=== PATIENT | female | born 1950 | race Caucasian/White ===

== ENCOUNTER 2016-07-10 19:34 | Emergency (ER) | payer MEDICARE ==
[~2016-07-10] VITALS: Ht 162.6 cm; Wt 122.5 kg
[~2016-07-10 19:34] MED LIST: ACHD5005 PO; ALBU17AE23 INH; ALLO300T2 PO; ALLP300T PO; ASP325T; ASP325T PO; ASP81CT PO; ATEN50TA PO; CEPH500C PO; CHOL100084 PO; CIPR-17 PO; DCS100C PO; FELO5TAB2; FISH OIL; FLT05NA16; FLUT16SP22 NS; FLUT1DIS26 IH; FRSM20T PO; FURO20TA4 PO; FURO40TA4 PO; GABA-486 PO; GARL10002 PO; GARLIC; GBPN100C; GLUC500C2 PO; HYDR-3714 PO; HYDR1CAP2; IBUP200T48 PO; LEVO200T6 PO; LVT.1T PO; MONT10TA21 PO; MONT10TA24 PO; MULT-974 PO; MULT1CAP PO; OMEG1CAP51 PO; ONDA-42 SL; ONDA8TAB9 PO; POTA10CA43 PO; PRD20T PO; SIMV10TA3 PO; TRAM50TA2; TRIA1CAP4 PO; VITAMIN D3; [UNRECOGNIZED DRUG - CODE] PO; [UNRECOGNIZED DRUG - CODE] PO
--- OUTSIDE RECORDS SUMMARY | 2016-07-10 19:39 | XMS REPORT | Continuity of Care Document ---
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 If you do not see the information that you expected, contact Release of Information in the Health Information Management department at [phone] for further assistance in locating additional records.[facility] Active Allergies and Adverse Reactions Allergen Noted Date Severity Reactions Comments Simvastatin 11/05/2014 Low UNKNOWN Current Medications Prescription Sig. Disp. Refills Start End Date Status Date levothyroxine (SYNTHROID) Take 200 mcg by mouth Active 200 mcg tablet daily. fluticasone-salmeterol Inhale 1 Puff by mouth Active (ADVAIR DISKUS) 250-50 every 12 hours. mcg inhalation disk docusate (COLACE) 100 mg Take 100 mg by mouth Active capsule twice daily. fluticasone (FLONASE) 50 Apply 1 [place] to each Active mcg/actuation nasal spray nostril as directed twice daily. cholecalciferol (VITAMIN Take 1,000 Units by mouth Active D-3) 1,000 units tablet twice daily. albuterol 0.5% 0.5 mL every 4 hours as 30 Vial 3 11/20/19 Active (PROVENTIL; VENTOLIN) 2.5 needed. 15 mg/0.5 mL nebu nebulizer solution ipratropium (ATROVENT) Inhale 2.5 mL by mouth 1 Bottle 0 11/20/19 Active 0.02 % nebulizer solution every 4 hours as needed. 15 Active Problems Problem Noted Date Gout 11/05/2014 HTN (hypertension) 11/05/2014 Morbid obesity (HCC) 11/05/2014 COPD (chronic obstructive pulmonary disease) ([facility]) 11/05/2014 Hypothyroidism 11/05/2014 Chronic back pain 11/05/2014 Abdominal hernia 11/05/2014 Peripheral neuropathy ([facility]) 11/05/2014 Resolved Problems Problem Noted Date Resolved Date Hypernatremia 11/10/2014 11/19/2014 Encephalopathy acute 11/09/2014 11/19/2014 Pulmonary edema 11/06/2014 11/19/2014 Volume overload 11/06/2014 11/19/2014 Acute respiratory failure with hypercapnia ([facility]) 11/05/2014 11/19/2014 Diastolic CHF ([facility]) 11/05/2014 11/19/2014 Diffuse pulmonary alveolar hemorrhage 11/05/2014 11/19/2014 KAIN (acute kidney injury) ([facility]) 11/05/2014 11/19/2014 Thrombocytopenia ([facility]) 11/05/2014 11/19/2014 Acute urinary tract infection 11/05/2014 11/19/2014 Bilateral pneumonia 11/05/2014 11/19/2014 Social History Tobacco Use Types Packs/Day Years Used Date Never Assessed Last Filed Vital Signs Vital Sign Reading Time Taken Blood Pressure 149/69 11/19/2014 1:00 PM CDT Pulse 114 11/19/2014 1:20 PM CDT Temperature 36.6 C (97.9 F) 11/19/2014 12:00 PM CDT Respiratory Rate - - Height 1.575 m (5' 2.01") 11/15/2014 10:00 AM CDT Weight 139.799 kg (308 lb 3.2 11/18/2014 4:10 AM CDT oz) Body Mass Index 56.36 11/18/2014 4:10 AM CDT Oxygen Saturation 93% 11/19/2014 1:20 PM CDT Plan of Care Health Maintenance Due Date Last Done Comments Physical (Comprehensive) 11/12/1957 Exam Pertussis Vaccine 11/12/1959 Tetanus Vaccine 1965 Breast Cancer Screening 1988 Colorectal Cancer 1998 Screening Shingles Vaccine 2008 Osteoporosis Screening 2013 Prevnar/Pneumovax (#1) 2013 Influenza Vaccine 02/24/2016 Hepatitis C Screening Completed 11/05/2014 Results from Last 3 Months Not on file
[2016-07-10] MEDS ORDERED: FAMO20TA5 PO (19:41)
[2016-07-10] MEDS ORDERED: BUDE10.2 INH (19:41)
[2016-07-10] MEDS ORDERED: HYDR-3812 PO (19:41)
[2016-07-10] MEDS ORDERED: TR1C15 TD (19:41)
[2016-07-10] MEDS ORDERED: METO-333 PO (19:41)
[2016-07-10] MEDS ORDERED: ONDA4TAB11 PO (19:41)
[2016-07-10] MEDS ORDERED: NS IV 1000 ML 1,000 ML IV ONE (19:49)
[2016-07-10 19:56] LABS: BASOPHILS % (AUTO) 0 % (0-10); EOSINOPHILS # (AUTO) 0.1 10^3/uL (0.0-0.3); EOSINOPHILS % (AUTO) 1 % (0-10); LYMPHOCYTES # (AUTO) 0.1 X 10^3 (1.0-4.0); LYMPHOCYTES % (AUTO) 2 % (12-44); MEAN CORPUSCULAR HEMOGLOBIN 31 PG (25-34); MEAN CORPUSCULAR HGB CONC 31 G/DL (32-36); MEAN CORPUSCULAR VOLUME 101 FL (80-99); MEAN PLATELET VOLUME 10.3 FL (7.4-10.4); MONOCYTES # (AUTO) 0.2 X 10^3 (0.0-1.0); MONOCYTES % (AUTO) 3 % (0-12); NEUTROPHILS # (AUTO) 7.4 X 10^3 (1.8-7.8); NEUTROPHILS % (AUTO) 95 % (42-75); PLATELET COUNT 96 10^3/uL (130-400); RED BLOOD COUNT 4.09 10^6/uL (4.35-5.85); RED CELL DISTRIBUTION WIDTH 14.5 % (10.0-14.5); WHITE BLOOD COUNT 7.8 10^3/uL (4.3-11.0)
--- NOTE | 2016-07-10 19:57 | ED GI ---
General Chief Complaint: Abdominal/GI Problems Stated Complaint: N,V,D Nursing Triage Note: NVD TODAY RUQ ABDOMINAL/RIGHT FLANK PAIN Sepsis Screen: No Definite Risk Source of Information: Patient (VERY DIFFICULT AND LIMITED HISTORIAN), [facility] Records, Old Records History of Present Illness Time Seen By Provider: 19:35 Initial Comments PT ARRIVES VIA EMS FROM [facility] PT STATES SHE HAS BEEN SICK SINCE EARLY THIS AM, AND BEGAN VOMITING AROUND NOON TODAY HAS HAD NAUSEA/VOMITING AND DIARRHEA VOMITED X 3 AND DIARRHEA X 3-4 PER PT ( DETENTION REPORT IS VOMITING X 2 AND DIARRHEA X 1 NO KNOWN FEVER PT C/O RIGHT FLANK/BACK PAIN AND RUQ TENDERNESS TO PALPATION PER DETENTION REPORT NO URINARY SYMPTOMS AND VOIDING A NORMAL AMOUNT, PER PT PT HAS ORDERS FOR ZOFRAN, BUT AL STAFF DID NOT GIVE HER ANY--EMS 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 STACK Allergies and Home Medications Allergies Coded Allergies: simvastatin (Unverified Adverse Reaction, Unknown, 04/20/14) Home Medications Allopurinol 300 Mg Tablet 300 MG PO DAILY (Reported) Budesonide/Formoterol Fumarate 10.2 Gm Hfa.aer.ad #102 1 INHALER INH UD ( Reported) Cholecalciferol 1,000 Unit Tab 1,000 UNIT PO BID (Reported) Docosahexanoic Acid/Epa 1 Cap Capsule 1,000 MG PO DAILY (Reported) Docusate Sodium 100 Mg Cap 100 MG PO BID (Reported) Famotidine 20 Mg Tablet #30 1 TAB PO UD (Reported) Fluticasone Propionate 16 Gm Naspr 1 SPRAY NS BID (Reported) Fluticasone/Salmeterol 1 Disk Inhp 1 PUFF IH BID (Reported) Furosemide 20 Mg Tablet 20-40 MG PO DAILY PRN PRN SWELLING (Reported) TAKES 1 TO 2 (20MG) TABLETS Furosemide 40 Mg Tablet 40 MG PO DAILY X 3 DAYS (Reported) ORDERED 11-02-15 40MG DAILY X 3 DAYS FOR EDEMA Gabapentin 100 Mg Capsule 100 MG PO DAILY PRN PRN PAIN (Reported) Garlic 1,000 Mg Capsule 1,000 MG PO DAILY (Reported) Hydrocodone Bit/Acetaminophen 1 Tab Tablet 1 TAB PO Q6H PRN PRN PAIN (Reported) Hydrocodone/Acetaminophen 1 Each Tablet #60 1 TAB PO UD (Reported) Ibuprofen 200 Mg Tablet 200 MG PO Q8H PRN PRN PAIN (Reported) Levothyroxine Sodium 200 Mcg Tablet 200 MCG PO DAILY (Reported) Metoprolol Tartrate 25 Mg Tablet #30 1 TAB PO UD (Reported) Montelukast Sodium 10 Mg Tablet 10 MG PO HS (Reported) Multivitamin No.44/Vit D3/K 1 Each Capsule 1 CAP PO DAILY (Reported) Nitrofurantoin Monohyd/M-Cryst 100 Mg Capsule #20 100 MG PO BID Prescribed by: NAINA REID on 07/10/162119 Ondansetron 4 Mg Tab.rapdis #21 1 TAB PO UD (Reported) Triamcinolone Acet 15 Gm Cr #80 1 TUBE TD UD (Reported) Review of Systems Constitutional: no symptoms reported Respiratory: No Symptoms Reported Cardiovascular: No Symptoms Reported Gastrointestinal: See HPI Abdominal Pain Diarrhea Nausea Vomiting Genitourinary: No Symptoms Reported Musculoskeletal: see HPI Skin: no symptoms reported Psychiatric/Neurological: No Symptoms Reported Endocrine: No Symptoms Reported Hematologic/Lymphatic: No Symptoms Reported Past Hfeegkj-Qlcztp-Btcdye Hx Patient Social History Alcohol Use: Past History Recreational Drug Use: No Smoking Status: Former Smoker (QUIT SEVERAL YEARS AGO) Type Used: Cigarettes Recent Foreign Travel: No Contact w/Someone Who Travel: No Recent Infectious Disease Expo: No Recent Hopitalizations: Yes Physical Abuse Screen: No Sexual Abuse: No Immunizations Up To Date Tetanus Booster (TDap): More than 5yrs Date of Pneumonia Vaccine: Oct 11, 2012 Seasonal Allergies Seasonal Allergies: Yes Surgeries HX Surgeries: Yes (R CARPAL TUNNEL,D&C,PERICARDIAL WINDOW; LEFT THORACOTOMY; I& D'S; R HAND TENDON REPAIR; HYST/BSO; LEFT EYE SURGERY ; TRACH X 2) Surgeries: Cardiac, Eye Surgery, Hysterectomy, Oophorectomy, Orthopedic, Tracheostomy Respiratory Hx Respiratory Disorders: Yes ( LEFT THORACOTOMY; VENTILATOR/TRACH X 2; MULTIORGAN FAILURE WITH PNEUMONIA AND TRACH; CHRONIC RESPIRATORY FAILURE; CHF) Respiratory Disorders: Asthma, Pneumonia, COPD Cardiovascular Hx Cardiac Disorders: Yes (PERICARDIAL WINDOW 1993) Cardiac Disorders: Atrial Fibrillation (PER DETENTION RECORDS--PT DENIES ANY CARDIAC PROBLEMS), Chronic Edema/Swelling, High Cholesterol, Hypertension Neurological Hx Neurological Disorders: Yes (NEUROPATHY OF FEET) Neurological Disorders: Neuropathy 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 System : No Hx 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 Disorders: Yes (ENDOMETRIAL HYPERPLASIA) 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, Menopausal Genitourinary Hx Genitourinary Disorders: Yes (DIALYSIS WHILE SICK WITH PNEUMONIA) Genitourinary Disorders: Renal Failure Gastrointestinal Hx Gastrointestinal Disorders: Yes Gastrointestinal Disorders: Abdominal Hernia Musculoskeletal Hx Musculoskeletal Disorders: Yes (OSTEOARTHRITIS, RIGHT CARPAL TUNNEL AND TENDON REPAIR; GENERALIZED PAIN AND WEAKNESS--MINIMALLY AMBULATORY, ESSENTIALLY WHEELCHAIR-BOUND; CHRONIC NECK AND BACK PAIN ) Musculoskeletal Disorders: Arthritis, Chronic Back Pain, Gout Endocrine Hx Endocrine Disorders: Yes ("BORDERLINE"DIABETIC, DIET-CONTROLLED, PER PT; OBESITY) Endocrine Disorders: Hypothyroidsim HEENT HX ENT Disorders: Yes (HX OF TRACH ; LEFT EYE SURGERY) HEENT Disorders: Tinnitis Cancer Hx Cancer: No Psychosocial Hx Psychiatric Problems: Yes Behavioral Health Disorders: Anxiety, Depression Integumentary HX Skin/Integumentary Disorder: No Blood Transfusions Hx Blood Disorders: Yes (ANEMIA) Adverse Reaction to a Blood Tr: No Family Medical History Family Medial History: Alzheimer's disease Arthritis Asthma Completed stroke Dementia Diabetes mellitus Glaucoma Hypertension Kidney disease Myocardial infarction Psychosocial problem Respiratory disorder Severe allergy Thyroid disease Visual disorder No Family History of: AIDS Abdominal aortic aneurysm Jae's disease Alcoholism Aphasia Cancer of mouth Cardiovascular disease Cataracts Colon cancer Congenital disease Congenital heart disease Coronary thrombosis Cystic fibrosis Deafness or hearing loss Drug abuse Dysphasia Fibrocystic disease of breast Gastroenteritis Headache disorder Hypercholesterolemia Infertility Neoplasm Not obtainable due to adoption Osteoporosis Parkinson's disease Prostate cancer Seizure disorder Tuberculosis Physical Exam Vital Signs VS - Last 72 Hours, by Label 07/10/16 07/10/16 19:41 21:49 Temp 98.2 98.4 Pulse 109 Resp 16 23 B/P 162/77 Pulse Ox 99 O2 Delivery Nasal Cannula Nasal Cannula O2 Flow Rate 2 3 Capillary Refill : Less Than 3 Seconds General Appearance: obese (MORBIDLY OBESE) other (TALKS NON-STOP, PT WITH MULTIPLE DEMANDS SOON SHE ARRIVES--WANTING BLANKETS, WANTING FEET ELEVATED , WANTING SOMETHING TO DRINK, WANTING HEAD OF BED ADJUSTED, ETC. DOES NOT APPEAR TO BE IN ANY DISCOMFORT AND DOES NOT APPEAR ILL. ) HEENT: PERRL/EOMI other (POOR DENTITION AND MANY MISSING TEETH) Neck: normal inspection Respiratory: no respiratory distress no accessory muscle use rales wheezing ( COARSE ) other (DIFFUSE /BILATERALLY) Cardiovascular: normal peripheral pulses (+1/4 BILATERALLY) regular rate, rhythm no JVD no murmur Gastrointestinal: normal bowel sounds soft no organomegaly no pulsatile massNo distended, No guarding, No rebound, tenderness (EPIGASTRIC AND RUQ TENDERNESS, AND RIGHT FLANK TENDERNESS) other (EXAM LIMITED BY BODY HABITUS) Extremities: no calf tenderness normal capillary refill pedal edema (1-2+ BILATERALLY) Back: CVA tenderness (R) 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 no motor/sensory deficits alert oriented x 3 Skin: normal color warm/dry Progress/Results/Core Measures Results/Orders Lab Results Laboratory Tests Test 07/10/16 19:37 07/10/16 19:54 Range/Units Activated Partial Thromboplast Time 28 24-35 SEC Alanine Aminotransferase (ALT/SGPT) 15 0-55 U/L Albumin 3.8 3.2-4.5 G/DL Alkaline Phosphatase 91 40-136 U/L Amylase Level 67 25-125 U/L Anion Gap 13 5-14 MMOL/L Aspartate Amino Transf (AST/SGOT) 12 5-34 U/L BUN/Creatinine Ratio 40 Band Neutrophils 4 % Basophils # (Auto) 0.0 0.0-0.1 10^3/uL Basophils % (Manual) 1 % Basophils (%) (Auto) 0 0-10 % Blood Urea Nitrogen 54 H 7-18 MG/DL Calcium Level 9.1 8.5-10.1 MG/DL Carbon Dioxide Level 27 21-32 MMOL/L Chloride Level 105 98-107 MMOL/L Creatinine 1.35 H 0.60-1.30 MG/DL Eosinophils # (Auto) 0.1 0.0-0.3 10^3/uL Eosinophils % (Manual) 1 % Eosinophils (%) (Auto) 1 0-10 % Estimat Glomerular Filtration Rate 39 Glucose Level 161 H 70-105 MG/DL Hematocrit 41 35-52 % Hemoglobin 12.7 11.5-16.0 G/DL INR Comment 1.1 0.8-1.4 Lipase 32 8-78 U/L Lymphocytes # (Auto) 0.1 L 1.0-4.0 X 10^3 Lymphocytes % (Manual) 3 % Lymphocytes (%) (Auto) 2 L 12-44 % Macrocytosis SLIGHT Magnesium Level 2.0 1.8-2.4 MG/DL Mean Corpuscular Hemoglobin 31 25-34 PG Mean Corpuscular Hemoglobin Concent 31 L 32-36 G/DL Mean Corpuscular Volume 101 H 80-99 FL Mean Platelet Volume 10.3 7.4-10.4 FL Monocytes # (Auto) 0.2 0.0-1.0 X 10^3 Monocytes % (Manual) 2 % Monocytes (%) (Auto) 3 0-12 % Neutrophils # (Auto) 7.4 1.8-7.8 X 10^3 Neutrophils % (Manual) 89 % Neutrophils (%) (Auto) 95 H 42-75 % Nucleated Red Blood Cells 1 Platelet Count 96 L 130-400 10^3/uL Potassium Level 4.9 3.6-5.0 MMOL/L Prothrombin Time 13.5 12.2-14.7 SEC Red Blood Count 4.09 L 4.35-5.85 10^6/uL Red Cell Distribution Width 14.5 10.0-14.5 % Sodium Level 145 135-145 MMOL/L TSH [place] Testing 1.57 0.35-4.94 UIU/ML Total Bilirubin 0.3 0.1-1.0 MG/DL Total Protein 7.5 6.4-8.2 G/DL White Blood Count 7.8 4.3-11.0 10^3/uL Urine Amorphous Sediment MOD OANH URATES H /LPF Urine Bacteria FEW H /HPF Urine Bilirubin NEGATIVE NEGATIVE Urine Casts NONE /LPF Urine Clarity SLIGHTLY CLOUDY Urine Color YELLOW Urine Crystals PRESENT H /LPF Urine Culture Indicated NO Urine Glucose (UA) NEGATIVE NEGATIVE Urine Ketones NEGATIVE NEGATIVE Urine Leukocyte Esterase 1+ H NEGATIVE Urine Mucus SMALL H /LPF Urine Nitrite NEGATIVE NEGATIVE Urine Protein 3+ H NEGATIVE Urine RBC 0-2 /HPF Urine RBC (Auto) 2+ H NEGATIVE Urine Specific [place] 1.015 L 1.016-1.022 Urine Squamous Epithelial Cells 2-5 /HPF Urine Urobilinogen NORMAL NORMAL MG/DL Urine WBC 2-5 /HPF Urine pH 6 5-9 My Orders Orders-FRANKLINNAINA K DO Saline Lock/Iv-Start (07/10/16 19:49) Monitor-Rhythm Ecg Trace Only (07/10/16 19:49) Amylase (07/10/16 19:49) Cbc With Automated Diff (07/10/16 19:49) Comprehensive Metabolic Panel (07/10/16 19:49) Lipase (07/10/16 19:49) Magnesium (07/10/16 19:49) Ua Culture If Indicated (07/10/16 19:49) Saline Lock/Iv-Start (07/10/16 19:49) Ns Iv 1000 Ml (Sodium Chloride 0.9%) (07/10/16 19:49) Protime With Inr (07/10/16 20:10) Partial Thromboplastin Time (07/10/16 20:10) Thyroid Analyzer (07/10/16 20:10) Ekg Tracing (07/10/16 20:10) Manual Differential (07/10/16 19:37) Ct Abdomen/Pelvis Wo (07/10/16 20:34) Urine Culture (07/10/16 21:15) Ceftriaxone Injection (Rocephin Injectio (07/10/16 21:30) Medications Given in ED Current Medications Medications Dose Ordered Sig/Inderjit Route Start Time Stop Time Status Last Admin Dose Admin Ceftriaxone Sodium/Sodium Chloride 50 ml @ 100 mls/hr ONCE ONCE IV 07/10/16 21:30 07/10/16 21:51 DC 07/10/16 21:31 100 MLS/HR Sodium Chloride 1,000 ml @ 0 mls/hr Q0M ONCE IV 07/10/16 19:49 07/10/16 19:52 DC 07/10/16 19:55 0 MLS/HR Vital Signs/I&O Vital Sign - Last 12Hours 07/10/16 07/10/16 19:41 21:49 Temp 98.2 98.4 Pulse 109 Resp 16 23 B/P 162/77 Pulse Ox 99 O2 Delivery Nasal Cannula Nasal Cannula O2 Flow Rate 2 3 Blood Pressure Mean: 105 Progress Note : Progress Note PT SLEPT SOUNDLY FOR REMAINDER OF ER STAY NO VOMITING OR DIARRHEA OR C/O ABDOMINAL PAIN DURING ER STAY PT TOLERATING ICE CHIPS PRIOR TO DISMISSAL ECG Initial ECG Impression Time: 20:17 Initial ECG Rate: 110 Initial ECG Rhythm: S.Tach Initial ECG Comparisson: Changed (FROM ARRHYTHMIA ON 11/02/14) Diagnostic Imaging Comments CT ABDOMEN/PELVIS--NO ACUTE PROCESS, VENTRAL HERNIA, DIFFUSE DIVERTICULOSIS WITHOUT ACUTE DIVERTICULITIS, HORSESHOE KIDNEY. PER RADIOLOGIST REPORT @ [id number] Reviewed: Reviewed by Me Departure Impression Impression: Primary Impression: Gastroenteritis Additional Impression: Urinary tract infection Disposition: SNF Condition: Stable Departure-Patient Inst. Referrals: AURORA STACK DO (PCP/Family) Primary Care Physician Patient Instructions: Urinary Tract Infection, Adult (DC), Viral Gastroenteritis, Adult (DC) Add. Discharge Instructions: LOTS OF CLEAR LIQUIDS--WATER, BROTH, JELLO, GATORADE BRATS DIET--BANANAS, RICE, APPLESAUCE, TOAST, SALTINES ACIDOPHILUS 2 PILLS 4 TIMES A DAY X 14 DAYS FOLLOW UP WITH YOUR DR IN 2-3 DAYS IF NO BETTER All discharge instructions reviewed with patient and/or family. Voiced understanding. Scripts Nitrofurantoin Monohyd/M-Cryst (Macrobid 100 mg Capsule)100 Mg [id number] Mg PO BID #20 CAP Prov:NAINA REID DO 07/10/16 NAINA REID DO Jul 10, 2016 19:56
[2016-07-10 20:01] LABS: BILIRUBIN,URINE NEGATIVE (NEGATIVE); KETONES,URINE NEGATIVE (NEGATIVE); LEUKOCYTE ESTERASE ,URINE 1+ (NEGATIVE); NITRITE,URINE NEGATIVE (NEGATIVE); PH,URINE 6 (5-9); PROTEIN,URINE 3+ (NEGATIVE); UROBILINOGEN,URINE NORMAL (NORMAL)
[2016-07-10 20:22] LABS: INR 1.1 (0.8-1.4); PROTHROMBIN TIME PATIENT 13.5 SEC (12.2-14.7)
[2016-07-10 20:26] LABS: ALBUMIN 3.8 G/DL (3.2-4.5); BILIRUBIN,TOTAL 0.3 MG/DL (0.1-1.0); CALCIUM 9.1 MG/DL (8.5-10.1); CREATININE SERUM 1.35 MG/DL (0.60-1.30); POTASSIUM 4.9 MMOL/L (3.6-5.0); TOTAL PROTEIN 7.5 G/DL (6.4-8.2)
[2016-07-10 20:43] LABS: BAND NEUTROPHILS 4 %; BASOPHILS % (MANUAL) 1 %; EOSINOPHILS % (MANUAL) 1 %; LYMPHOCYTES % (MANUAL) 3 %; NEUTROPHILS % (MANUAL) 89 %
--- NOTE | 2016-07-10 21:12 | Diagnostic Imaging Report ---
PROCEDURE: CT abdomen and pelvis without contrast. TECHNIQUE: Multiple contiguous axial images were obtained through the abdomen and pelvis without the use of intravenous contrast. INDICATION: Right upper quadrant pain. Comparison with 04/20/2014 FINDINGS: There is mild atelectasis in the right lung base. Liver appears normal. The gallbladder and bile ducts are normal. The pancreas is normal. The spleen is normal. The adrenal glands are normal. The kidneys show no evidence of obstruction or calculi. There is a horseshoe kidney noted. No renal masses are demonstrated. The aorta shows atherosclerotic changes without evidence of aneurysm. The stomach and small bowel are not distended. The colon shows normal stool and gas pattern with no evidence of constipation. There are multiple diverticula in the descending and sigmoid colon though no changes are seen to indicate acute diverticulitis. There is ventral hernia present with multiple loops of small bowel in the hernia sac as well as transverse colon. There is no evidence of incarcerated bowel. No evidence of panniculitis. IMPRESSION: 1. No acute intra-abdominal abnormality demonstrated. 2. Horseshoe kidney is present with no evidence of calculi or obstruction. 3. Diffuse diverticulosis of the descending and sigmoid colon though no changes to indicate diverticulitis. 4. Ventral hernia with no evidence of incarcerated bowel. 5. Gallbladder and bile ducts appear normal. Dictated by: Dictated on workstation # [id number]
[2016-07-10] MEDS ORDERED: NITR-65 PO (21:20)
[2016-07-10] MEDS ORDERED: cefTRIAXone INJECTION 1,000 MG in NORMAL SALINE (BAXTER MINI) 50 ML IV ONE (21:30)
[2016-07-10 21:49] VITALS: BP 129/77
== END 2016-07-10 21:50 ==
LOC: EDUNIT# 19:34 → ER 19:35
DX: K52.9 Noninfective gastroenteritis and colitis, unspecified (principal); N39.0 Urinary tract infection, site not specified; K57.30 Diverticulosis of large intestine without perforation or abscess without bleeding; E66.9 Obesity, unspecified; K43.9 Ventral hernia without obstruction or gangrene; Q63.1 Lobulated, fused and horseshoe kidney; Z79.899 Other long term (current) drug therapy; Z87.891 Personal history of nicotine dependence
CPT/HCPCS: 36415; 74176; 80053; 81000; 82150; 83690; 83735; 84443; 85007; 85027; 85610; 85730; 87077; 87088; 87186; 93005; 93041; 96361; 96365

== ENCOUNTER → 2016-12-20 | Outpatient (CLI) | payer MEDICARE ==
[~2016-12-20] MED LIST changes: +BUDE10.2 INH; +FAMO20TA5 PO; +HYDR-3812 PO; +METO-333 PO; +NITR-65 PO; +ONDA4TAB11 PO; +TR1C15 TD
[2016-12-20 12:30] LABS: ABG BASE EXCESS 11.3 MMOL/L (-2.5-2.5); ABG HCO3 37 MMOL/L (23-27); ABG OXYGEN SATURATION 97 % (94-100); ABG PCO2 68 MMHG (35-45); ABG PH 7.36 (7.37-7.43); ABG PO2 79 MMHG (79-93); ABG TCO2 39.3 MMOL/L (21.0-31.0)
[2016-12-20 12:31] LABS: ALLENS TEST YES-POS; PATIENT TEMP 97.8
== END ==
LOC: LAB 11:25
PROVIDERS: ATTEND Family Medicine
DX: R79.89 Other specified abnormal findings of blood chemistry (principal); J44.9 Chronic obstructive pulmonary disease, unspecified
CPT/HCPCS: 82805

== ENCOUNTER → 2017-07-23 | Outpatient (CLI) | payer MEDICARE ==
[~2017-07-23] MED LIST changes: -HYDR-3812 PO
== END ==
LOC: CARD 13:35
PROVIDERS: ATTEND Internal Medicine Cardiovascular Disease
DX: I25.10 Atherosclerotic heart disease of native coronary artery without angina pectoris (principal); I11.0 Hypertensive heart disease with heart failure; I50.9 Heart failure, unspecified; E11.21 Type 2 diabetes mellitus with diabetic nephropathy; R60.9 Edema, unspecified; Z72.0 Tobacco use
CPT/HCPCS: 93306

== ENCOUNTER → 2017-08-02 | Outpatient (CLI) | payer MEDICARE | LOC: WOUNDCARE 14:03 | PROVIDERS: ATTEND Nurse Practitioner | DX: S71.102A Unspecified open wound, left thigh, initial encounter (principal); E66.01 Morbid (severe) obesity due to excess calories; R32 Unspecified urinary incontinence | CPT/HCPCS: 99213 ==

== ENCOUNTER → 2017-08-06 | Outpatient (CLI) | payer MEDICARE | LOC: WOUNDCARE 11:30 | PROVIDERS: ATTEND Surgery | DX: L89.893 Pressure ulcer of other site, stage 3 (principal) | CPT/HCPCS: 99212 ==

== ENCOUNTER → 2017-08-09 | Outpatient (CLI) | payer MEDICARE | LOC: WOUNDCARE 15:00 | PROVIDERS: ATTEND Nurse Practitioner | DX: S71.102A Unspecified open wound, left thigh, initial encounter (principal); E66.01 Morbid (severe) obesity due to excess calories; R32 Unspecified urinary incontinence | CPT/HCPCS: 99212 ==

== ENCOUNTER → 2017-08-16 | Outpatient (CLI) | payer MEDICARE | LOC: WOUNDCARE 14:50 | PROVIDERS: ATTEND Nurse Practitioner | DX: S71.102A Unspecified open wound, left thigh, initial encounter (principal); E66.01 Morbid (severe) obesity due to excess calories; R32 Unspecified urinary incontinence | CPT/HCPCS: 99212 ==

== ENCOUNTER → 2017-08-23 | Outpatient (CLI) | payer MEDICARE | LOC: WOUNDCARE 14:35 | PROVIDERS: ATTEND Nurse Practitioner | DX: S71.102A Unspecified open wound, left thigh, initial encounter (principal); E66.01 Morbid (severe) obesity due to excess calories | CPT/HCPCS: 99212 ==

== ENCOUNTER → 2017-08-30 | Outpatient (CLI) | payer MEDICARE | LOC: WOUNDCARE 14:23 | PROVIDERS: ATTEND Nurse Practitioner | DX: S71.102A Unspecified open wound, left thigh, initial encounter (principal); E66.01 Morbid (severe) obesity due to excess calories; R32 Unspecified urinary incontinence | CPT/HCPCS: 99212 ==

== ENCOUNTER → 2017-09-13 | Outpatient (CLI) | payer MEDICARE | LOC: WOUNDCARE 13:20 | PROVIDERS: ATTEND Nurse Practitioner | DX: L22 Diaper dermatitis (principal); E66.01 Morbid (severe) obesity due to excess calories; R32 Unspecified urinary incontinence | CPT/HCPCS: 99212 ==

== ENCOUNTER → 2017-09-27 | Outpatient (CLI) | payer MEDICARE | LOC: WOUNDCARE 15:02 | PROVIDERS: ATTEND Nurse Practitioner | DX: L22 Diaper dermatitis (principal); E66.01 Morbid (severe) obesity due to excess calories; R32 Unspecified urinary incontinence; L97.122 Non-pressure chronic ulcer of left thigh with fat layer exposed | CPT/HCPCS: 99213 ==

== ENCOUNTER → 2017-10-11 | Outpatient (CLI) | payer MEDICARE | LOC: WOUNDCARE 14:59 | PROVIDERS: ATTEND Nurse Practitioner | DX: L22 Diaper dermatitis (principal); E66.01 Morbid (severe) obesity due to excess calories; R32 Unspecified urinary incontinence; L97.122 Non-pressure chronic ulcer of left thigh with fat layer exposed | CPT/HCPCS: 99212 ==

== ENCOUNTER → 2017-12-11 | Outpatient (CLI) | payer MEDICARE | LOC: WOUNDCARE 09:43 | PROVIDERS: ATTEND Nurse Practitioner | DX: L89.222 Pressure ulcer of left hip, stage 2 (principal); I87.332 Chronic venous hypertension (idiopathic) with ulcer and inflammation of left lower extremity; L97.222 Non-pressure chronic ulcer of left calf with fat layer exposed; E66.01 Morbid (severe) obesity due to excess calories; Z68.43 Body mass index [BMI] 50.0-59.9, adult | CPT/HCPCS: 99213 ==

== ENCOUNTER → 2018-06-11 | Outpatient (CLI) | payer MEDICARE ==
[2018-06-11 18:20] LABS: BILIRUBIN,URINE NEGATIVE (NEGATIVE); CLARITY,URINE CLEAR; COLOR,URINE YELLOW; GLUCOSE, URINE (UA) NEGATIVE (NEGATIVE); KETONES,URINE NEGATIVE (NEGATIVE); LEUKOCYTE ESTERASE ,URINE 1+ (NEGATIVE); NITRITE,URINE NEGATIVE (NEGATIVE); PH,URINE 6 (5-9); PROTEIN,URINE 1+ (NEGATIVE); UROBILINOGEN,URINE NORMAL (NORMAL)
[2018-06-11 18:34] LABS: BACTERIA,URINE FEW /HPF; SQUAMOUS EPITHELIAL CELL,UR RARE /HPF; WBC,URINE 50-100 /HPF
== END ==
LOC: LABNPT 18:12
PROVIDERS: ATTEND Family Medicine
DX: R82.998 Other abnormal findings in urine (principal)
CPT/HCPCS: 81000; 87077; 87088; 87186

== ENCOUNTER 2018-10-15 21:38 | Inpatient (IN) | payer MEDICARE ==
[~2018-10-15] VITALS: Ht 162.6 cm; Wt 111.6 kg
[2018-10-15] MEDS ORDERED: methylPREDNISolone 125 MG (Solu-MEDROL) VIAL IV STA (21:42)
[2018-10-15] MEDS ORDERED: RT-ALBUTEROL/IPRATROPIUM 3 ML (DUONEB) VIAL INH ONE (21:45)
[2018-10-15 22:00] LABS: BASOPHILS % (AUTO) 0 % (0-10); EOSINOPHILS # (AUTO) 0.1 10^3/uL (0.0-0.3); EOSINOPHILS % (AUTO) 2 % (0-10); HEMATOCRIT 38 % (35-52); HEMOGLOBIN 10.3 G/DL (11.5-16.0); LYMPHOCYTES # (AUTO) 0.3 X 10^3 (1.0-4.0); LYMPHOCYTES % (AUTO) 4 % (12-44); MEAN CORPUSCULAR HEMOGLOBIN 28 PG (25-34); MEAN CORPUSCULAR HGB CONC 27 G/DL (32-36); MEAN CORPUSCULAR VOLUME 104 FL (80-99); MEAN PLATELET VOLUME 10.6 FL (7.4-10.4); MONOCYTES # (AUTO) 0.3 X 10^3 (0.0-1.0); MONOCYTES % (AUTO) 4 % (0-12); NEUTROPHILS # (AUTO) 6.9 X 10^3 (1.8-7.8); NEUTROPHILS % (AUTO) 91 % (42-75); PLATELET COUNT 105 10^3/uL (130-400); RED CELL DISTRIBUTION WIDTH 15.5 % (10.0-14.5); WHITE BLOOD COUNT 7.6 10^3/uL (4.3-11.0)
[2018-10-15 22:13] LABS: INR 1.1 (0.8-1.4); PROTHROMBIN TIME PATIENT 14.6 SEC (12.2-14.7)
[2018-10-15 22:24] LABS: ALANINE AMINOTRANSFERASE 9 U/L (0-55); ALKALINE PHOSPHATASE 103 U/L (40-136); BILIRUBIN,TOTAL 0.3 MG/DL (0.1-1.0); BUN/CREATININE RATIO 16; CALCIUM 9.9 MG/DL (8.5-10.1); CARBON DIOXIDE 34 MMOL/L (21-32); CHLORIDE 107 MMOL/L (98-107); CREATINE KINASE 12 U/L (29-168); CREATININE SERUM 1.71 MG/DL (0.60-1.30); GFR ESTIMATED 30; GLUCOSE 142 MG/DL (70-105); MAGNESIUM 2.3 MG/DL (1.8-2.4); POTASSIUM 4.1 MMOL/L (3.6-5.0); SODIUM 152 MMOL/L (135-145); TOTAL PROTEIN 8.3 GM/DL (6.4-8.2)
[2018-10-15] MEDS ORDERED: RT-ALBUTEROL SULF 2.5 MG/3 ML PRE-MIX VIAL INH STA (22:25)
[2018-10-15 22:26] LABS: BAND NEUTROPHILS 1 %; BASOPHILS % (MANUAL) 0 %; EOSINOPHILS % (MANUAL) 0 %; LYMPHOCYTES % (MANUAL) 3 %; MONOCYTES % (MANUAL) 5 %; NEUTROPHILS % (MANUAL) 91 %
[2018-10-15] MEDS ORDERED: DEXAMETHASONE 4 MG/ML SDV (DECADRON) IH ONE (22:30)
[2018-10-15 22:31] LABS: CREATINE KINASE MB 0.8 NG/ML (<6.6)
[2018-10-15 22:31] LABS: ABG BASE EXCESS 6.9 MMOL/L (-2.5-2.5); ABG OXYGEN SATURATION 96 % (94-100); ABG PO2 92 MMHG (79-93); ABG TCO2 36.7 MMOL/L (21.0-31.0)
[2018-10-15 22:34] LABS: ABG PH 7.23 (7.37-7.43)
[2018-10-15 22:35] LABS: ABG PCO2 84 MMHG (35-45); ALLENS TEST YES-POS; INSPIRED O2 6L; PATIENT TEMP 98.9; VENTILATOR NO
--- NOTE | 2018-10-15 22:37 | ED Respiratory ---
General Stated Complaint: RESPIRATORY PROBLEMS Source: patient (VERY DIFFICULT AND LIMITED HISTORIAN. ), EMS, old records History of Present Illness Date Seen by Provider: Oct 15, 2018 Time Seen by Provider: 21:39 Initial Comments PT ARRIVES VIA EMS FROM [facility] C/O SHORTNESS OF BREATH SINCE YESTERDAY EMS REPORT THAT O2 SAT WAS DOWN TO 70% WITH MINIMAL EXERTION. EMS REPORT THAT O2 SATS UP TO 94% AT REST ON 4L/NC. PT NORMALLY WEARS 3L/NC OTHER VITALS PER EMS: TEMP 97.8, BP 145/81, HR 74 WITH NSR ON MONITOR PT HAS EXTENSIVE RESPIRATORY HISTORY AND HAS BEEN ON VENTILATOR AND HAD TRACH X 2, WELL CHF PT HAS HAD DUO NEB TREATMENTS X 4 TODAY, IS HER NORMAL ROUTINE, PT ALSO TAKES SYMBICORT PT HAS HAD SUBJECTIVE FEVER PT DENIES CHEST PAIN PT DENIES ANY INCREASE IN CHRONIC LEG SWELLING. PT HAS CHRONIC COUGH AND IS NO DIFFERENT THAN NORMAL, PER PT PCP: DR. STACK Allergies and Home Medications Allergies Coded Allergies: risperidone (Verified Allergy, Unknown, 10/16/18) simvastatin (Unverified Adverse Reaction, Unknown, 04/20/14) Home Medications Allopurinol 300 Mg Tablet, 300 MG PO DAILY, (Reported) Budesonide/Formoterol Fumarate 10.2 Gm Hfa.aer.ad, 1 INHALER INH UD, (Reported) Cholecalciferol 1,000 Unit Tab, 1,000 UNIT PO BID, (Reported) Docosahexanoic Acid/Epa 1 Cap Capsule, 1,000 MG PO DAILY, (Reported) Docusate Sodium 100 Mg Cap, 100 MG PO BID, (Reported) Famotidine 20 Mg Tablet, 1 TAB PO UD, (Reported) Fluticasone Propionate 16 Gm Naspr, 1 SPRAY NS BID, (Reported) Fluticasone/Salmeterol 1 Disk Inhp, 1 PUFF IH BID, (Reported) Furosemide 20 Mg Tablet, 20-40 MG PO DAILY PRN for SWELLING, (Reported) TAKES 1 TO 2 (20MG) TABLETS Furosemide 40 Mg Tablet, 40 MG PO DAILY X 3 DAYS, (Reported) ORDERED 5-11-15 40MG DAILY X 3 DAYS FOR EDEMA Gabapentin 100 Mg Capsule, 100 MG PO DAILY PRN for PAIN, (Reported) Garlic 1,000 Mg Capsule, 1,000 MG PO DAILY, (Reported) Hydrocodone Bit/Acetaminophen 1 Tab Tablet, 1 TAB PO Q6H PRN for PAIN, (Reported ) Hydrocodone Bit/Acetaminophen 1 Each Tablet, 1 TAB PO UD, (Reported) Ibuprofen 200 Mg Tablet, 200 MG PO Q8H PRN for PAIN, (Reported) Levothyroxine Sodium 200 Mcg Tablet, 200 MCG PO DAILY, (Reported) Metoprolol Tartrate 25 Mg Tablet, 1 TAB PO UD, (Reported) Montelukast Sodium 10 Mg Tablet, 10 MG PO HS, (Reported) Multivitamin No.44/Vit D3/K 1 Each Capsule, 1 CAP PO DAILY, (Reported) Nitrofurantoin Monohyd/M-Cryst 100 Mg Capsule, 100 MG PO BID Prescribed by: NAINA REID on 07/10/162119 Ondansetron 4 Mg Tab.rapdis, 1 TAB PO UD, (Reported) Triamcinolone Acet 15 Gm Cr, 1 TUBE TD UD, (Reported) Patient Home Medication List Home Medication List Reviewed: Yes Review of Systems Review of Systems Constitutional: see HPI, fever Respiratory: see HPI, cough, dyspnea on exertion, orthopnea; No phlegm; short of breath, wheezing Cardiovascular: No chest pain; edema; No palpitations, No syncope Gastrointestinal: no symptoms reported Genitourinary: no symptoms reported Musculoskeletal: no symptoms reported Skin: no symptoms reported Psychiatric/Neurological: No Symptoms Reported Hematologic/Lymphatic: No Symptoms Reported Immunological/Allergic: no symptoms reported Past Xqbeaqc-Wyrcyh-Zlzkcd Hx Patient Social History Alcohol Use: Past History Recreational Drug Use: No Smoking Status: Former Smoker (QUIT SEVERAL YEARS AGO) Type Used: Cigarettes Recent Foreign Travel: No Contact w/Someone Who Travel: No Immunizations Up To Date Tetanus Booster (TDap): More than 5yrs Date of Pneumonia Vaccine: Oct 11, 2012 Seasonal Allergies Seasonal Allergies: Yes Past Medical History Surgeries: Yes (RIGHT CARPAL TUNNEL; D&C; PERICARDIAL WINDOW; LEFT THORACOTOMY ; I&D'S; RIGHT HAND TENDON REPAIR; HYST/BSO; LEFT EYE SURGERY; TRACH X 2) Cardiac, Eye Surgery, Hysterectomy, Oophorectomy, Orthopedic, Tracheostomy Respiratory: Yes (LEFT THORACOTOMY; VENTILATOR WITH TRACH X 2; MULTIORGAN FAILURE WITH PNEUMONIA AND TRACH; CHRONIC RESPIRATORY FAILURE; CHF ) Asthma, Pneumonia, COPD Cardiac: Yes (PERICARDIAL WINDOW 1993) Atrial Fibrillation, Chronic Edema/Swelling, High Cholesterol, Hypertension Neurological: Yes (NEUROPATHY IN FEET) Neuropathy 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 Disorders: Yes (ENDOMETRIAL HYPERPLASIA) 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, 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 Sexually Transmitted Disease: No Genitourinary: Yes (ON DIALYSIS WHILE SICK WITH PNEUMONIA/MULTIORGAN FAILURE) Renal Failure Gastrointestinal: Yes Abdominal Hernia, Gastroesophageal Reflux Musculoskeletal: Yes (OA; RIGHT CARPAL TUNNEL AND TENDON REPAIR; GENERALIZED PAIN AND WEAKNESS--MINIMALLY AMBLATORY/ESSENTIALLY WHEELCHAIR-BOUND; CHRONIC NECK AND BACK PAIN) Arthritis, Chronic Back Pain, Gout Endocrine: Yes (MORBID OBESITY) Hypothyroidsim HEENT: Yes (HX OF TRACH; LEFT EYE SURGERY) Tinnitis Cancer: No Psychosocial: Yes Anxiety, Depression Integumentary: Yes (LEG ULCERS; VENOUS STASIS ) Adverse Reaction/Blood Tranf: No Family Medical History Alzheimer's disease Arthritis Asthma Completed stroke Dementia Diabetes mellitus Glaucoma Hypertension Kidney disease Myocardial infarction Psychosocial problem Respiratory disorder Severe allergy Thyroid disease Visual disorder No Family History of: AIDS Abdominal aortic aneurysm Mahnomen's disease Alcoholism Aphasia Cancer of mouth Cardiovascular disease Cataracts Colon cancer Congenital disease Congenital heart disease Coronary thrombosis Cystic fibrosis Deafness or hearing loss Drug abuse Dysphasia Fibrocystic disease of breast Gastroenteritis Headache disorder Hypercholesterolemia Infertility Neoplasm Not obtainable due to adoption Osteoporosis Parkinson's disease Prostate cancer Seizure disorder Tuberculosis Physical Exam Vital Signs - First Documented 10/15/18 21:40 Temp 98.9 Pulse 91 Resp 22 B/P (MAP) 161/84 (109) Pulse Ox 98 O2 Delivery OxyMask O2 Flow Rate 10.00 Capillary Refill : Height: 5'4" Weight: 270lbs. 0.0oz. 122.337801zl; BMI Method:Stated General Appearance: no apparent distress, obese (MORBIDLY), other (TALKS WITHOUT DIFFICULTY--PT MAKING MULTITUDE OF DEMANDS SOON SHE ARRIVES, AND CONTINUES THROUGHOUT ER STAY. ) HEENT: PERRL/EOMI Neck: normal inspection Respiratory: decreased breath sounds (DECREASED AERATION IN ALL LUNG ALVARENGA. ) , accessory muscle use, other (PT WAS MILDLY DYSPNEIC ON ARRIVAL, AND O2 SAT 87 % ON 4L/NC ON ARRIVAL) Cardiovascular: regular rate, rhythm, no murmur Gastrointestinal: soft Extremities: normal range of motion, non-tender, other (EXTENSIVE CHRONIC VENOUS STASIS CHANGES TO BILATERAL LOWER LEGS WITH ERYTHEMA AND SCALING. LEGS ARE EDEMATOUS, BUT DIFFICULT TO DETERMINE DEGREE OF EDEMA SECONDARY TO BODY HABITUS. ) Neurologic/Psychiatric: tipple repairer II-XII nml as tested, no motor/sensory deficits, alert, normal mood/affect, oriented x 3 Skin: normal color, warm/dry Focused Exam Lactate Level 10/15/18 22:01: Lactic Acid Level 0.53 Lactic Acid Level Laboratory Tests Test 10/15/18 22:01 Lactic Acid Level 0.53 MMOL/L (0.50-2.00) Progress/Results/Core Measures Suspected Sepsis SIRS Temperature: Pulse: Respiratory Rate: Laboratory Tests 10/15/18 21:53: White Blood Count 7.6 Blood Pressure / Mean: 10/15/18 22:01: Lactic Acid Level 0.53 Laboratory Tests 10/15/18 21:53: Creatinine 1.71H, INR Comment 1.1, Platelet Count 105L, Total Bilirubin 0.3 Results/Orders Lab Results Laboratory Tests Test 10/15/18 21:53 10/15/18 22:01 10/15/18 22:24 Range/Units White Blood Count 7.6 4.3-11.0 10^3/uL Red Blood Count 3.67 L 4.35-5.85 10^6/uL Hemoglobin 10.3 L 11.5-16.0 G/DL Hematocrit 38 35-52 % Mean Corpuscular Volume 104 H 80-99 FL Mean Corpuscular Hemoglobin 28 25-34 PG Mean Corpuscular Hemoglobin Concent 27 L 32-36 G/DL Red Cell Distribution Width 15.5 H 10.0-14.5 % Platelet Count 105 L 130-400 10^3/uL Mean Platelet Volume 10.6 H 7.4-10.4 FL Neutrophils (%) (Auto) 91 H 42-75 % Lymphocytes (%) (Auto) 4 L 12-44 % Monocytes (%) (Auto) 4 0-12 % Eosinophils (%) (Auto) 2 0-10 % Basophils (%) (Auto) 0 0-10 % Neutrophils # (Auto) 6.9 1.8-7.8 X 10^3 Lymphocytes # (Auto) 0.3 L 1.0-4.0 X 10^3 Monocytes # (Auto) 0.3 0.0-1.0 X 10^3 Eosinophils # (Auto) 0.1 0.0-0.3 10^3/uL Basophils # (Auto) 0.0 0.0-0.1 10^3/uL Neutrophils % (Manual) 91 % Lymphocytes % (Manual) 3 % Monocytes % (Manual) 5 % Eosinophils % (Manual) 0 % Basophils % (Manual) 0 % Band Neutrophils 1 % Macrocytosis SLIGHT Prothrombin Time 14.6 12.2-14.7 SEC INR Comment 1.1 0.8-1.4 Activated Partial Thromboplast Time 35 24-35 SEC Sodium Level 152 H 135-145 MMOL/L Potassium Level 4.1 3.6-5.0 MMOL/L Chloride Level 107 98-107 MMOL/L Carbon Dioxide Level 34 H 21-32 MMOL/L Anion Gap 11 5-14 MMOL/L Blood Urea Nitrogen 27 H 7-18 MG/DL Creatinine 1.71 H 0.60-1.30 MG/DL Estimat Glomerular Filtration Rate 30 BUN/Creatinine Ratio 16 Glucose Level 142 H 70-105 MG/DL Calcium Level 9.9 8.5-10.1 MG/DL Corrected Calcium 9.9 8.5-10.1 MG/DL Magnesium Level 2.3 1.8-2.4 MG/DL Total Bilirubin 0.3 0.1-1.0 MG/DL Aspartate Amino Transf (AST/SGOT) 11 5-34 U/L Alanine Aminotransferase (ALT/SGPT) 9 0-55 U/L Alkaline Phosphatase 103 40-136 U/L Total Creatine Kinase 12 L 29-168 U/L Creatine Kinase MB 0.8 <6.6 NG/ML Troponin I < 0.028 <0.028 NG/ML B-Type Natriuretic Peptide 364.6 H <100.0 PG/ML Total Protein 8.3 H 6.4-8.2 GM/DL Albumin 4.0 3.2-4.5 GM/DL Lactic Acid Level 0.53 0.50-2.00 MMOL/L Blood Gas Puncture Site RIGHT RADIAL Blood Gas Patient Temperature 98.9 Arterial Blood pH 7.23 *L 7.37-7.43 Arterial Blood Partial Pressure CO2 84 *H 35-45 MMHG Arterial Blood Partial Pressure O2 92 79-93 MMHG Arterial Blood HCO3 34 H 23-27 MMOL/L Arterial Blood Total CO2 36.7 H 21.0-31.0 MMOL/L Arterial Blood Oxygen Saturation 96 94-100 % Arterial Blood Base Excess 6.9 H -2.5-2.5 MMOL/L Clif Test YES-POS Blood Gas Ventilator Setting NO Blood Gas Inspired Oxygen 6L My Orders Orders - NAINA REID DO Ed Iv/Invasive Line Start (10/15/18 21:42) Ekg Tracing (10/15/18 21:42) O2 (10/15/18 21:42) Monitor-Rhythm Ecg Trace Only (10/15/18 21:42) Chest 1 View, Ap/Pa Only (10/15/18 21:42) Arterial Blood Gas (10/15/18 21:42) BNP (10/15/18 21:42) Cbc With Automated Diff (10/15/18 21:42) Comprehensive Metabolic Panel (10/15/18 21:42) Creatine Kinase (10/15/18 21:42) Creatine Kinase Mb (10/15/18:42) Lactic Acid Analyzer (10/15/18:42) Magnesium (10/15/18 21:42) Protime With Inr (10/15/18:42) Partial Thromboplastin Time (10/15/18 21:42) Troponin I (10/15/18 21:42) Blood Culture (10/15/18 21:42) Influenza A And B Antigens (10/15/18 21:42) Methylprednisolone Sod Succ (Solu-Medrol (10/15/18 21:42) Albuterol/Ipra Inhalation Soln (Duoneb I (10/15/18 21:45) Rt Request For Service (10/15/18 21:45) Svn Small Volume Nebulizer (10/15/18 21:45) Manual Differential (10/15/18 21:53) Albuterol Pre-Mix Nebs (Rt) (Proventil (10/15/18 22:25) Dexamethasone Injection (Decadron Inject (10/15/18 22:30) Svn Small Volume Nebulizer (10/15/18 22:25) Furosemide Injection (Lasix Injection) (10/15/18 22:45) Catheter(Urinary) Insert & Ass 03,15 (10/15/18 22:37) Medications Given in ED Current Medications Medications Dose Ordered Sig/Inderjit Route Start Time Stop Time Status Last Admin Dose Admin Albuterol/ Ipratropium 3 ml ONCE ONCE INH 10/15/18 21:45 10/15/18 21:46 DC 10/15/18 22:25 3 ML Dexamethasone Sodium Phosphate 20 mg ONCE ONCE IH 10/15/18 22:30 10/15/18 22:31 DC 10/15/18 22:44 20 MG Vital Signs/I&O 10/15/18 10/15/18 10/15/18 10/15/18 21:40 21:40 22:25 22:39 Temp 98.9 98.6 Pulse 91 91 Resp 22 22 B/P (MAP) 161/84 (109) 161/84 Pulse Ox 98 98 96 96 O2 Delivery OxyMask OxyMask OxyMask O2 Flow Rate 10.00 5.00 5.00 Capillary Refill : Progress Note : Progress Note O2 SATS UP TO 97% ON OXIMASK AT 6L PT GIVEN HOUR LONG NEB TREATMENT AND PLACED ON BIPAP WITH MUCH IMPROVEMENT IN LUNG SOUNDS O2 SATS REMAINED IN MID TO UPPER 90'S NO DETERIORATION IN PT'S CONDITION DURING ER STAY PT CONTINUED TO MAKE MULTIPLE DEMANDS AND COMPLAINTS REGARDING BED/POSITION/ BIPAP MASK--GIVEN ATIVAN WITH SOME IMPROVEMENT ECG Initial ECG Impression Date: Oct 15, 2018 Initial ECG Impression Time: 23:51 Initial ECG Rate: 92 Initial ECG Rhythm: Normal Sinus Initial ECG Impression: 1st Degree AV Block Initial ECG Comparisson: Unchanged Diagnostic Imaging Comments CXR--CHF AND / OR BILATERAL INFILTRATES, PENDING RADIOLOGIST REVIEW Reviewed: Reviewed by Me Departure Communication (Admissions) [id number]--SPOKE WITH DR. STACK, ACCEPTS PT FOR ADMIT. WILL CONSULT DR. PITT Impression Primary Impression: Acute on chronic respiratory failure Additional Impressions: Pneumonia CHF (congestive heart failure) Morbid obesity Chronic renal insufficiency Chronic anemia Disposition: 09 ADMITTED INPATIENT Condition: Improved Admissions Decision to Admit Reason: Admit from ER (General) Decision to Admit/Date: Oct 15, 2018 Time/Decision to Admit Time: 22:40 Departure-Patient Inst. Referrals: AURORA STACK DO (PCP/Family) Primary Care Physician NAINA REID DO Oct 15, 2018 22:36
[2018-10-15] MEDS ORDERED: FUROSEMIDE 40 MG/4 ML INJ (LASIX) IVP ONE (22:45)
--- NOTE | 2018-10-15 22:50 | NUR ---
PT VERBALIZED THAT SHE DID NOT WANT A MALE PLANNING ENGINEER TO INSERT A LR CATHETER OR ASSIST HER WITH TOILETING. COMPLIED WITH PT'S REQUEST. PROVIDER NOTIFIED OF SITUATION
[2018-10-15] MEDS ORDERED: cefTRIAXone FOR IV USE 1,000 MG in WATER (STERILE) FOR INJECTION 10 ML IV ONE (23:00)
[2018-10-15] MEDS ORDERED: LORazepam INJ 2 MG/ML (ATIVAN) VIAL IVP ONE (23:45)
[2018-10-16] VITALS (27 sets, daily range): BP systolic 98–179; BP diastolic 4–142
--- NOTE | 2018-10-16 00:41 | NUR ---
EDDY VALERO admitted to room CU7-1, with an admitting diagnosis of Pneumonia, CHF, Acute on Chronic resp failure, on 10/15/[address] [facility] ED via stretcher, accompanied by staff.EDDY VALERO introduced to surroundings, call light, bed controls, phone, TV, temperature control, lights, meal times, smoking policy, visitor policy, side rail policy, bathrooms and showers. Patient Rights given to patient in the handbook. EDDY VALERO verbalizes understanding that [facility] is not responsible for the loss or damage to any personal effects or valuables that are kept in the patients possession during their hospitalization. The following Patient Care Plans were discussed with the : Discharge Planning. EDDY VALERO verbalizes understanding of Interdisciplinary Patient Education. Patient and/or family were informed about the Rapid Response Team and its purpose.
[2018-10-16 01:02] LABS: ABG BASE EXCESS 6.4 MMOL/L (-2.5-2.5); ABG OXYGEN SATURATION 93 % (94-100); ABG PO2 80 MMHG (79-93); ABG TCO2 36.3 MMOL/L (21.0-31.0)
[2018-10-16 01:04] LABS: ABG PH 7.23 (7.37-7.43)
[2018-10-16 01:05] LABS: ABG PCO2 85 MMHG (35-45); ALLENS TEST YES-POS; INSPIRED O2 40%; PATIENT TEMP 98.6; VENTILATOR NO
--- OUTSIDE RECORDS SUMMARY | 2018-10-16 01:12 | XMS REPORT | Clinical Summary ---
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 If you do not see the information that you expected, contact Release of Information in the Health Information Management department at [phone] for further assistance in locating additional records.[facility] Allergies Comments Active Allergy Reactions Severity Noted Date Simvastatin UNKNOWN Low 11/05/2014 Medications End Date Status Medication Sig Dispensed Refills Start Date Active levothyroxine (SYNTHROID) Take 200 mcg 0 200 mcg tablet by mouth daily. Active fluticasone-salmeterol Inhale 1 Puff 0 (ADVAIR DISKUS) 250-50 by mouth mcg inhalation disk every 12 hours. Active docusate (COLACE) 100 mg Take 100 mg 0 capsule by mouth twice daily. Active fluticasone (FLONASE) 50 Apply 1 [place] 0 mcg/actuation nasal spray to each nostril as directed twice daily. Active cholecalciferol (VITAMIN Take 1,000 0 D-3) 1,000 units tablet Units by mouth twice daily. Active albuterol 0.5% 0.5 mL every 30 Vial 3 (PROVENTIL; VENTOLIN) 2.5 4 hours as 5 mg/0.5 mL nebu nebulizer needed. solution Active ipratropium (ATROVENT) Inhale 2.5 mL 1 Bottle 0 0.02 % nebulizer solution by mouth 5 every 4 hours as needed. Active Problems Problem Noted Date Gout 11/05/2014 HTN (hypertension) 11/05/2014 Morbid obesity 11/05/2014 COPD (chronic obstructive pulmonary disease) 11/05/2014 Hypothyroidism 11/05/2014 Chronic back pain 11/05/2014 Abdominal hernia 11/05/2014 Peripheral neuropathy 11/05/2014 Resolved Problems Problem Noted Date Resolved Date Hypernatremia 11/10/2014 11/19/2014 Encephalopathy acute 11/09/2014 11/19/2014 Pulmonary edema 11/06/2014 11/19/2014 Volume overload 11/06/2014 11/19/2014 Acute respiratory failure with hypercapnia 11/05/2014 11/19/2014 Diastolic CHF 11/05/2014 11/19/2014 Diffuse pulmonary alveolar hemorrhage 11/05/2014 11/19/2014 KAIN (acute kidney injury) 11/05/2014 11/19/2014 Thrombocytopenia 11/05/2014 11/19/2014 Acute urinary tract infection 11/05/2014 11/19/2014 Bilateral pneumonia 11/05/2014 11/19/2014 Social History Date Tobacco Use Types Packs/Day Years Used Never Assessed Sex Assigned at Date Recorded Not on file Industry Job Start Date Occupation Not on file Not on file Not on file Travel End Travel History Travel Start No recent travel history available. Last Filed Vital Signs Time Taken Vital Sign Reading 11/19/2014 1:00 PM CDT Blood Pressure 149/69 11/19/2014 1:20 PM CDT Pulse 114 11/19/2014 12:00 PM CDT Temperature 36.6 C (97.9 F) - Respiratory Rate - 11/19/2014 1:20 PM CDT Oxygen Saturation 93% - Inhaled Oxygen - Concentration 11/18/2014 4:10 AM CDT Weight 139.8 kg (308 lb 3.2 oz) 11/15/2014 10:00 AM CDT Height 157.5 cm (5' 2.01") 11/15/2014 10:00 AM CDT Body Mass Index 56.36 Plan of Treatment Health Maintenance Due Date Last Done Comments PHYSICAL (COMPREHENSIVE) 11/12/1957 EXAM DTAP/TDAP VACCINES (1 - 1966 Tdap) BREAST CANCER SCREENING 1988 COLORECTAL CANCER 1998 SCREENING SHINGLES RECOMBINANT 1998 VACCINE (1 of 2) OSTEOPOROSIS 2013 SCREENING/MONITORING PNEUMONIA (PCV13/PPSV23) 2013 VACCINES (1 of 2 - PCV13) INFLUENZA VACCINE 01/23/2019 HEPATITIS C SCREENING Completed 11/05/2014 Results Not on filefrom Last 3 Months Insurance Type Payer Benefit Subscriber ID Effective Phone Address Plan / Dates Group Medicare MEDICARE MEDICARE xxxxxxxxxx 1996- PART A AND Present B Advance Directives Patient has advance care planning documents, and code status on file. For more information, please contact: [facility] [address] [place] [address] Date Inactivated Comments Code Status Date Activated 11/19/2014 4:24 PM Full Code 11/12/2014 2:34 PM Provider has discussed Code Status Yes w/Patient or Family? 11/12/2014 2:34 PM Full Code 11/05/2014 3:51 PM Provider has discussed Code Status No, more discussion w/Patient or Family? needed
[2018-10-16 01:13] LABS: BILIRUBIN,URINE NEGATIVE (NEGATIVE); CLARITY,URINE CLEAR; COLOR,URINE YELLOW; GLUCOSE, URINE (UA) NEGATIVE (NEGATIVE); KETONES,URINE NEGATIVE (NEGATIVE); LEUKOCYTE ESTERASE ,URINE NEGATIVE (NEGATIVE); NITRITE,URINE NEGATIVE (NEGATIVE); PH,URINE 6 (5-9); PROTEIN,URINE 1+ (NEGATIVE); UROBILINOGEN,URINE NORMAL (NORMAL)
[2018-10-16] MEDS ORDERED: AZITHROMYCIN INJECTION 500 MG in NS (IVPB) 250 ML IV SCH (01:15)
--- OUTSIDE RECORDS SUMMARY | 2018-10-16 01:19 | XMS REPORT | Continuity of Care Document ---
Author Organization Unknown Address Unknown Allergies Active Description Code Type Severity Reaction Onset Reported/Identified Relationship to Patient Clinical Status Yes simvastatin [id number] Drug Allergy Unknown N/A 04/20/2014 Medications There is no data. Problems Date Dx Coded Attending Type Code Diagnosis Diagnosed By 06/23/2009 Ot 250.00 06/23/2009 Ot 428.0 06/23/2009 Ot 493.90 06/23/2009 Ot V72.81 07/14/2009 Ot 786.09 01/26/2012 Ot 491.21 OBSTR CHRONIC BRONCHITIS, W (ACUTE) EXAC 01/26/2012 Ot 786.05 SHORTNESS OF BREATH 02/04/2012 Ot 599.0 URIN TRACT INFECTION NOS 02/04/2012 Ot 789.06 ABDOMINAL PAIN, EPIGASTRIC 08/23/2012 Ot 716.90 ARTHROPATHY NOS-UNSPEC 08/23/2012 Ot 729.81 SWELLING OF LIMB 10/12/2012 Ot 244.9 HYPOTHYROIDISM NOS 10/12/2012 Ot 250.40 DIAB W RENAL MANIFEST, TYPE II OR UNSPEC 10/12/2012 Ot 274.9 GOUT NOS 10/12/2012 Ot 278.00 OBESITY, NOS 10/12/2012 Ot 285.9 ANEMIA NOS 10/12/2012 Ot 327.23 OBSTRUCTIVE SLEEP APNEA (ADULT) (PEDIATR 10/12/2012 Ot 403.90 HYPTNSV CHR KID DIS, UNSPEC, W CHR KD ST 10/12/2012 Ot 414.01 CORONARY ATHEROSCLEROSIS OF [place] CORON 10/12/2012 Ot 428.0 CONGESTIVE HEART FAILURE NOS 10/12/2012 Ot 428.31 ACUTE DIASTOLIC HRT FAILURE 10/12/2012 Ot 493.20 CHRONIC OBSTRUCTIVE ASTHMA, NOS 10/12/2012 Ot 519.19 OTHER DISEASES OF [place] AND BRON[place] 10/12/2012 Ot 583.81 NEPHRITIS NOS IN OTH DIS 10/12/2012 Ot 585.3 CHRONIC KIDNEY DISEASE, STAGE III (MODER 10/12/2012 Ot 599.0 URIN TRACT INFECTION NOS 10/12/2012 Ot 715.90 OSTEOARTHROS NOS-UNSPEC 10/12/2012 Ot V03.82 PROPHYLACTIC VACC AGAINST STREPTOCOCCUS 10/12/2012 Ot V15.82 HISTORY OF TOBACCO USE 10/12/2012 Ot V85.42 BODY MASS INDEX 45.0-49.9, ADULT 04/20/2014 MATTHEW MORENO, RAPHAEL Brito Ot 553.1 UMBILICAL HERNIA 04/20/2014 MATTHEW MORENO, RAPHAEL Brito Ot 729.30 PANNICULITIS, UNSP SITE 04/20/2014 MATTHEW MORENO, RAPHAEL Brito Ot 789.00 ABDOMINAL PAIN, UNSPECIFIED SITE 10/19/2014 GELLENDER DO, AUR[place]A A Ot 244.9 10/19/2014 GELLENDER DO, AUR[place]A A Ot 250.00 10/19/2014 GELLENDER DO, [place]UR[place]A A Ot 272.0 10/19/2014 GELLENDER DO, AUR[place]A A Ot 274.9 10/19/2014 GELLENDER DO, AUR[place]A A Ot 276.51 10/19/2014 GELLENDER DO, AUR[place]A A Ot 278.01 10/19/2014 GELLENDER DO, AUR[place]A A Ot 287.5 10/19/2014 GELLENDER DO, AUR[place]A A Ot 300.00 10/19/2014 GELLENDER DO, [place]UR[place]A A Ot 305.20 10/19/2014 GELLENDER DO, AUR[place]A A Ot 311 10/19/2014 GELLENDER DO, AUR[place]A A Ot 356.9 10/19/2014 GELLENDER DO, AUR[place]A A Ot 401.9 10/19/2014 GELLENDER DO, AUR[place]A A Ot 459.81 10/19/2014 GELLENDER DO, AUR[place]A A Ot 493.20 10/19/2014 GELLENDER DO, AUR[place]A A Ot 682.6 10/19/2014 GELLENDER DO, AUR[place]A A Ot 716.90 10/19/2014 GELLENDER DO, AUR[place]A A Ot 924.01 10/19/2014 GELLENDER DO, AURORA A Ot E849.0 10/19/2014 GELLENDER DO, [place]UR[place]A A Ot E885.9 10/19/2014 GELLENDER DO, AUR[place]A A Ot V15.82 10/19/2014 GELLENDER DO, [place]UR[place]A A Ot V46.2 10/19/2014 GELLENDER DO, [place]UR[place]A A Ot V60.3 10/19/2014 GELLENDER DO, AUR[place]A Sim Ot V85.43 10/19/2014 GELLENDER DO, AUR[place]A Sim Ot 244.9 10/19/2014 GELLENDER DO, [place]UR[place]A Sim Ot 250.00 10/19/2014 GELLENDER DO, [place]UR[place]A Sim Ot 272.0 10/19/2014 GELLENDER DO, AUR[place]A Sim Ot 274.9 10/19/2014 GELLENDER DO, AUR[place]A Sim Ot 276.51 10/19/2014 GELLENDER DO, AUR[place]A Sim Ot 278.01 10/19/2014 GELLENDER DO, AUR[place]A Sim Ot 287.5 10/19/2014 GELLENDER DO, AUR[place]A Sim Ot 300.00 10/19/2014 GELLENDER DO, AUR[place]A Sim Ot 305.20 10/19/2014 GELLENDER DO, AUR[place]A Sim Ot 311 10/19/2014 GELLENDER DO, AUR[place]A Sim Ot 356.9 10/19/2014 GELLENDER DO, AUR[place]A Sim Ot 401.9 10/19/2014 GELLENDER DO, AUR[place]A Sim Ot 459.81 10/19/2014 GELLENDER DO, AUR[place]A Sim Ot 493.20 10/19/2014 GELLENDER DO, AUR[place]A Sim Ot 682.6 10/19/2014 GELLENDER DO, AUR[place]A Sim Ot 716.90 10/19/2014 GELLENDER DO, AURORA Sim Ot 924.01 10/19/2014 GELLENDER DO, AURORA Sim Ot E849.0 10/19/2014 GELLENDER DO, AUR[place]A Sim Ot E885.9 10/19/2014 GELLENDER DO, AUR[place]A Sim Ot V15.82 10/19/2014 GELLENDER DO, AUR[place]A Sim Ot V46.2 10/19/2014 GELLENDER DO, AUR[place]A Sim Ot V60.3 10/19/2014 GELLENDER DO, AUR[place]A Sim Ot V85.43 10/22/2014 GELLENDER DO, AURORA Sim Ot 244.9 HYPOTHYROIDISM NOS 10/22/2014 GELLENDER DO, AURORA Sim Ot 250.00 DIAB EARLINE WO COMPL, TYPE II OR UNSPEC TY 10/22/2014 GELLENDER DO, AURORA Sim Ot 272.0 PURE HYPERCHOLESTEROLEM 10/22/2014 GELLENDER DO, AURORA Sim Ot 274.9 GOUT NOS 10/22/2014 GELLENDER DO, AUR[place]A Sim Ot 276.0 HYPEROSMOLALITY 10/22/2014 GELLENDER DO, AURORA Sim Ot 276.51 DEHYDRATION 10/22/2014 [facility] [place] Sim Ot 278.01 MORBID OBESITY 10/22/2014 [facility], [place] Sim Ot 287.5 THROMBOCYTOPENIA NOS 10/22/2014 [facility], [place] Sim Ot 300.00 ANXIETY STATE NOS 10/22/2014 [facility] [place] Sim Ot 305.20 CANNABIS ABUSE-UNSPEC 10/22/2014 [facility], [place] Sim Ot 311 DEPRESSIVE DISORDER NEC 10/22/2014 [facility] [place] Sim Ot 356.9 IDIO PERIPH NEURPTHY NOS 10/22/2014 [facility] [place] Sim Ot 401.9 HYPERTENSION NOS 10/22/2014 [facility] [place] Sim Ot 459.81 VENOUS INSUFFICIENCY NOS 10/22/2014 [facility] [place] Sim Ot 493.20 CHRONIC OBSTRUCTIVE ASTHMA, NOS 10/22/2014 [facility] [place] Sim Ot 593.9 RENAL URETERAL DIS NOS 10/22/2014 [facility], [place] Sim Ot 682.6 10/22/2014 [facility], [place] Sim Ot 716.90 ARTHROPATHY NOS-UNSPEC 10/22/2014 [facility], [place] Sim Ot 924.01 CONTUSION OF HIP 10/22/2014 [facility], [place] Sim Ot E849.0 ACCIDENT IN HOME 10/22/2014 [facility], [place] Sim Ot E885.9 FALL FROM SLIPPING, TRIPPING, OR STUMBLI 10/22/2014 [facility], [place] Sim Ot V15.82 HISTORY OF TOBACCO USE 10/22/2014 [facility], [place] Sim Ot V46.2 SUPPLEMENTAL OXYGEN 10/22/2014 [facility], [place] Sim Ot V60.3 PERSON LIVING ALONE 10/22/2014 [facility], [place] Sim Ot V85.43 BODY MASS INDEX 50.0-59.9, ADULT 10/22/2014 [facility] [place] Sim Ot 244.9 10/22/2014 [facility] [place] Sim Ot 250.00 10/22/2014 [facility] [place] Sim Ot 272.0 10/22/2014 [facility], [place] Sim Ot 274.9 10/22/2014 GELLENDER DO, [place] Sim Ot 276.0 10/22/2014 GELLENDER DO, [place] Sim Ot 276.51 10/22/2014 GELLENDER DO, [place] Sim Ot 278.01 10/22/2014 GELLENDER DO, [place]UR[place]A Sim Ot 287.5 10/22/2014 GELLENDER DO, [place] Sim Ot 300.00 10/22/2014 GELLENDER DO, [place]UR[place]A Sim Ot 305.20 10/22/2014 GELLENDER DO, [place]UR[place] Sim Ot 311 10/22/2014 GELLENDER DO, [place] Sim Ot 356.9 10/22/2014 GELLENDER DO, [place] Sim Ot 401.9 10/22/2014 GELLENDER DO, [place]UR[place]A Sim Ot 459.81 10/22/2014 GELLENDER DO, [place]UR[place] Sim Ot 493.20 10/22/2014 GELLENDER DO, [place] Sim Ot 682.6 10/22/2014 GELLENDER DO, [place] Sim Ot 716.90 10/22/2014 GELLENDER DO, [place] Sim Ot 924.01 10/22/2014 GELLENDER DO, [place] Sim Ot E849.0 10/22/2014 GELLENDER DO, [place] Sim Ot E885.9 10/22/2014 GELLENDER DO, [place] Sim Ot V15.82 10/22/2014 GELLENDER DO, [place] Sim Ot V46.2 10/22/2014 GELLENDER DO, [place] Sim Ot V60.3 10/22/2014 GELLENDER DO, [place] Sim Ot V85.43 11/02/2014 Ot 622.10 11/02/2014 Ot 791.9 11/02/2014 Ot V72.63 11/02/2014 Ot V74.8 11/02/2014 Ot 244.9 11/02/2014 Ot 266.2 11/02/2014 Ot 285.9 11/02/2014 Ot 401.9 11/02/2014 Ot 493.90 11/02/2014 Ot 593.9 11/02/2014 Ot 729.1 11/02/2014 QUARLES DO, GERMANIA Ot 786.05 11/04/2014 GELLENDER DO, [place] Sim Ot 244.9 HYPOTHYROIDISM NOS 11/04/2014 GELLENDER DO, [place] Sim Ot 272.0 PURE HYPERCHOLESTEROLEM 11/04/2014 GELLENDER DO, [place]UR[place]A Sim Ot 274.9 GOUT NOS 11/04/2014 GELLENDER DO, [place] Sim Ot 278.01 MORBID OBESITY 11/04/2014 GELLENDER DO, [place] Sim Ot 287.5 THROMBOCYTOPENIA NOS 11/04/2014 [place] STACK DO Ot 300.00 ANXIETY STATE NOS 11/04/2014 [place] STACK DO Ot 311 DEPRESSIVE DISORDER NEC 11/04/2014 SREEKANTH SOTO [place] Sim Ot 355.8 MONONEURITIS LEG NOS 11/04/2014 [place] STACK DO Roney Ot 401.9 HYPERTENSION NOS 11/04/2014 [place] STACK DO Roney Ot 428.0 CONGESTIVE HEART FAILURE NOS 11/04/2014 [place] STACK DO Roney Ot 493.20 CHRONIC OBSTRUCTIVE ASTHMA, NOS 11/04/2014 [place] STACK DO Roney Ot 518.81 ACUTE RESPIRATORY FAILURE 11/04/2014 [place] STACK DO Ot 593.9 RENAL URETERAL DIS NOS 11/04/2014 [place] STACK DO Ot 599.0 URIN TRACT INFECTION NOS 11/04/2014 [place] STACK DO Roney Ot V03.82 PROPHYLACTIC VACC AGAINST STREPTOCOCCUS 11/04/2014 [place] STACK DO Roney Ot V15.82 HISTORY OF TOBACCO USE 11/04/2014 [place] STACK DO Ot V85.43 BODY MASS INDEX 50.0-59.9, ADULT 2014 Ot 622.10 2014 Ot 791.9 2014 Ot V72.63 2014 Ot V74.8 2014 Ot 244.9 2014 Ot 266.2 2014 Ot 285.9 2014 Ot 401.9 2014 Ot 493.90 2014 Ot 593.9 2014 Ot 729.1 2014 GERMANIA QUARLES DO Ot 786.05 12/15/2015 SREEKANTH SOTO [place] Roney Ot I51.7 CARDIOMEGALY 12/15/2015 SREEKANTH SOTOAURORA Ot J44.9 CHRONIC OBSTRUCTIVE PULMONARY DISEASE, U 12/15/2015 SREEKANTH SOTOAURORA Ot J81.1 CHRONIC PULMONARY EDEMA 01/11/2016 SREEKANTH SOTOAURORA Ot I51.7 CARDIOMEGALY 01/11/2016 SREEKANTH SOTOAURORA Ot J44.9 CHRONIC OBSTRUCTIVE PULMONARY DISEASE, U 01/11/2016 SREEKANTH SOTOAURORA Ot J81.1 CHRONIC PULMONARY EDEMA 02/03/2016 GERMANIA QUARLES DO Ot 786.05 SHORTNESS OF BREATH 02/03/2016 SREEKANTH SOTO, [place] Sim Ot I51.7 CARDIOMEGALY 02/03/2016 SREEKANTH SOTO, [place] Sim Ot J44.9 CHRONIC OBSTRUCTIVE PULMONARY DISEASE, U 02/03/2016 SREEKANTH SOTO, [place] Sim Ot J81.1 CHRONIC PULMONARY EDEMA 02/25/2016 SREEKANTH SOTO, [place] Sim Ot M25.551 PAIN IN RIGHT HIP 03/14/2016 TERRALENDER DO, [place] Sim Ot J44.9 CHRONIC OBSTRUCTIVE PULMONARY DISEASE, U 03/15/2016 GELLENDER DO, [place] Sim Ot J44.9 CHRONIC OBSTRUCTIVE PULMONARY DISEASE, U 03/19/2016 GELLENDER , [place] Sim Ot J44.9 CHRONIC OBSTRUCTIVE PULMONARY DISEASE, U 04/05/2016 GELLENDER DO, [place] Sim Ot J44.9 CHRONIC OBSTRUCTIVE PULMONARY DISEASE, U 07/10/2016 FRANKLIN NAINA SOTO Ot E66.9 OBESITY, UNSPECIFIED 07/10/2016 FRANKLIN NAINA SOTO Ot K43.9 VENTRAL HERNIA WITHOUT OBSTRUCTION OR GA 07/10/2016 FRANKLIN NAINA SOTO Ot K52.9 NONINFECTIVE GASTROENTERITIS AND COLITIS 07/10/2016 FRANKLIN DO NAINA K Ot K57.30 DVRTCLOS OF LG INT W/O PERFORATION OR AB 07/10/2016 NAINA REID DO Ot N39.0 URINARY TRACT INFECTION, SITE NOT SPECIF 07/10/2016 NAINA REID DO Ot Q63.1 LOBULATED, FUSED AND HORSESHOE KIDNEY 07/10/2016 ANINA REID DO Ot R11.2 NAUSEA WITH VOMITING, UNSPECIFIED 07/10/2016 FRANKLIN NATE SOTOA K Ot Z79.899 OTHER SENIOR CARE (CURRENT) DRUG THERAPY 07/10/2016 NAINA REID DO Ot Z87.891 PERSONAL HISTORY OF NICOTINE DEPENDENCE 07/12/2016 NAINA REID DO Ot E66.9 OBESITY, UNSPECIFIED 07/12/2016 FRANKLIN DO NAINA K Ot K43.9 VENTRAL HERNIA WITHOUT OBSTRUCTION OR GA 07/12/2016 FRANKLIN NATE SOTOA Magno Ot K52.9 NONINFECTIVE GASTROENTERITIS AND COLITIS 07/12/2016 FARNKLIN NATE SOTOA K Ot K57.30 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9 NONINFECTIVE GASTROENTERITIS AND COLITIS 07/13/2016 FRANKLIN DO NAINA K Ot K57.30 DVRTCLOS OF LG INT W/O PERFORATION OR AB 07/13/2016 FRANKLIN DO, NAINA K Ot N39.0 URINARY TRACT INFECTION, SITE NOT SPECIF 07/13/2016 FRANKLIN DO, NAINA K Ot Q63.1 LOBULATED, FUSED AND HORSESHOE KIDNEY 07/13/2016 FRANKLIN DO, NAINA K Ot R11.2 NAUSEA WITH VOMITING, UNSPECIFIED 07/13/2016 FRANKLIN DO NAINA K Ot Z79.899 OTHER TOBACCO SAMPLE PULLER (CURRENT) DRUG THERAPY 07/13/2016 FRANKLIN DO NAINA K Ot Z87.891 PERSONAL HISTORY OF NICOTINE DEPENDENCE 07/14/2016 GERMANIA QUARLES DO Ot 786.05 SHORTNESS OF BREATH 07/14/2016 [place] STACK DO Ot I51.7 CARDIOMEGALY 07/14/2016 [place] STACK DO Ot J44.9 CHRONIC OBSTRUCTIVE PULMONARY DISEASE, U 07/14/2016 [place] STACK DO Ot J81.1 CHRONIC PULMONARY EDEMA 07/14/2016 [place] STACK DO Ot M25.551 PAIN IN RIGHT HIP 07/14/2016 [place] STACK DO Ot J44.9 CHRONIC OBSTRUCTIVE PULMONARY DISEASE, U 01/11/2017 [place] STACK DO Ot J44.9 CHRONIC OBSTRUCTIVE PULMONARY DISEASE, U 01/11/2017 [place] STACK DO Ot R79.89 OTHER SPECIFIED ABNORMAL FINDINGS OF BLO 07/24/2017 JANA TURPIN MD Ot E11.21 TYPE 2 DIABETES MELLITUS WITH DIABETIC N 07/24/2017 JANA TURPIN MD Ot I11.0 HYPERTENSIVE HEART DISEASE WITH HEART FA 07/24/2017 JANA TURPIN MD Ot I25.10 ATHSCL HEART DISEASE OF [place] CORONARY 07/24/2017 JANA TURPIN MD Ot I50.9 HEART FAILURE, UNSPECIFIED 07/24/2017 JANA TURPIN MD Ot R60.9 EDEMA, UNSPECIFIED 07/24/2017 JANA TURPIN MD Ot Z72.0 TOBACCO USE 08/03/2017 LARRY BYRD APRN Ot E66.01 MORBID (SEVERE) OBESITY DUE TO EXCESS CA 08/03/2017 LARRY BYRD ESCROW AGENT Ot R32 UNSPECIFIED URINARY INCONTINENCE 08/03/2017 LARRY BYRD ESCROW AGENT Ot S71.102A UNSPECIFIED OPEN WOUND, LEFT THIGH, INIT 08/08/2017 KATHIE MORENO, RINA Mata Ot L89.893 PRESSURE ULCER OF OTHER SITE, STAGE 3 08/10/2017 LARRY BYRD ESCROW AGENT Ot E66.01 MORBID (SEVERE) OBESITY DUE TO EXCESS CA 08/10/2017 LARRY BYRD ESCROW AGENT Ot R32 UNSPECIFIED URINARY INCONTINENCE 08/10/2017 LARRY BYRD ESCROW AGENT Ot S71.102A UNSPECIFIED OPEN WOUND, LEFT THIGH, INIT 08/15/2017 LARRY BYRD ESCROW AGENT Ot E66.01 MORBID (SEVERE) OBESITY DUE TO EXCESS CA 08/15/2017 LARRY BYRD ESCROW AGENT Ot R32 UNSPECIFIED URINARY INCONTINENCE 08/15/2017 LARRY BYRD ESCROW AGENT Ot S71.102A UNSPECIFIED OPEN WOUND, LEFT THIGH, INIT 08/16/2017 JANA TURPIN MD Ot E11.21 TYPE 2 DIABETES MELLITUS WITH DIABETIC N 08/16/2017 JANA TURPIN MD Ot I11.0 HYPERTENSIVE HEART DISEASE WITH HEART FA 08/16/2017 JANA TURPIN MD Ot I25.10 ATHSCL HEART DISEASE OF [place] CORONARY 08/16/2017 JANA TURPIN MD Ot I50.9 HEART FAILURE, UNSPECIFIED 08/16/2017 DYANA MORENO, JANA Sandoval Ot R60.9 EDEMA, UNSPECIFIED 08/16/2017 DYANA MORENO, JANA Sandoval Ot Z72.0 TOBACCO USE 08/17/2017 LARRY BYRD ESCROW AGENT Ot E66.01 MORBID (SEVERE) OBESITY DUE TO EXCESS CA 08/17/2017 LARRY BYRD R ESCROW AGENT Ot R32 UNSPECIFIED URINARY INCONTINENCE 08/17/2017 LARRY BYRD R ESCROW AGENT Ot S71.102A UNSPECIFIED OPEN WOUND, LEFT THIGH, INIT 08/27/2017 CARSON LARRY R ESCROW AGENT Ot E66.01 MORBID (SEVERE) OBESITY DUE TO EXCESS CA 08/27/2017 CARSON, LARRY R ESCROW AGENT Ot S71.102A UNSPECIFIED OPEN WOUND, LEFT THIGH, INIT 08/28/2017 LARRY BYRD R ESCROW AGENT Ot E66.01 MORBID (SEVERE) OBESITY DUE TO EXCESS CA 08/28/2017 CARSON LARRY R ESCROW AGENT Ot R32 UNSPECIFIED URINARY INCONTINENCE 08/28/2017 CARSON LARRY R ESCROW AGENT Ot S71.102A UNSPECIFIED OPEN WOUND, LEFT THIGH, INIT 08/28/2017 KATHIE MORENO, RINA Mata Ot L89.893 PRESSURE ULCER OF OTHER SITE, STAGE 3 08/29/2017 LARRY BYRD R ESCROW AGENT Ot E66.01 MORBID (SEVERE) OBESITY DUE TO EXCESS CA 08/29/2017 LARRY BYRD R ESCROW AGENT Ot R32 UNSPECIFIED URINARY INCONTINENCE 08/29/2017 LARRY BYRD R ESCROW AGENT Ot S71.102A UNSPECIFIED OPEN WOUND, LEFT THIGH, INIT 08/31/2017 LARRY BYRD R ESCROW AGENT Ot E66.01 MORBID (SEVERE) OBESITY DUE TO EXCESS CA 08/31/2017 CARSON LARRY R ESCROW AGENT Ot R32 UNSPECIFIED URINARY INCONTINENCE 08/31/2017 CARSON LARRY R ESCROW AGENT Ot S71.102A UNSPECIFIED OPEN WOUND, LEFT THIGH, INIT 09/11/2017 LARRY BYRD R ESCROW AGENT Ot E66.01 MORBID (SEVERE) OBESITY DUE TO EXCESS CA 09/11/2017 CARSON LARRY R ESCROW AGENT Ot R32 UNSPECIFIED URINARY INCONTINENCE 09/11/2017 CARSON LARRY R ESCROW AGENT Ot S71.102A UNSPECIFIED OPEN WOUND, LEFT THIGH, INIT 09/14/2017 LARRY BYRD R ESCROW AGENT Ot E66.01 MORBID (SEVERE) OBESITY DUE TO EXCESS CA 09/14/2017 LARRY BYRD R ESCROW AGENT Ot L22 DIAPER DERMATITIS 09/14/2017 LARRY BYRD R ESCROW AGENT Ot R32 UNSPECIFIED URINARY INCONTINENCE 09/14/2017 CARSON LARRY R ESCROW AGENT Ot E66.01 MORBID (SEVERE) OBESITY DUE TO EXCESS CA 09/14/2017 LARRY BYRD R ESCROW AGENT Ot S71.102A UNSPECIFIED OPEN WOUND, LEFT THIGH, INIT 09/19/2017 LARRY BYRD R ESCROW AGENT Ot E66.01 MORBID (SEVERE) OBESITY DUE TO EXCESS CA 09/19/2017 LARRY BYRD R ESCROW AGENT Ot L22 DIAPER DERMATITIS 09/19/2017 LARRY BYRD R ESCROW AGENT Ot R32 UNSPECIFIED URINARY INCONTINENCE 10/01/2017 LARRY BYRD R ESCROW AGENT Ot E66.01 MORBID (SEVERE) OBESITY DUE TO EXCESS CA 10/01/2017 LARRY BYRD R ESCROW AGENT Ot R32 UNSPECIFIED URINARY INCONTINENCE 10/01/2017 LARRY BYRD R ESCROW AGENT Ot S71.102A UNSPECIFIED OPEN WOUND, LEFT THIGH, INIT 10/01/2017 LARRY BYRD R ESCROW AGENT Ot E66.01 MORBID (SEVERE) OBESITY DUE TO EXCESS CA 10/01/2017 LARRY BYRD R ESCROW AGENT Ot L22 DIAPER DERMATITIS 10/01/2017 LARRY BYRD R ESCROW AGENT Ot L97.122 NON-PRESSURE CHRONIC ULCER OF LEFT THIGH 10/01/2017 LARRY BYRD R ESCROW AGENT Ot R32 UNSPECIFIED URINARY INCONTINENCE 10/12/2017 LARRY BYRD R ESCROW AGENT Ot E66.01 MORBID (SEVERE) OBESITY DUE TO EXCESS CA 10/12/2017 LARRY BYRD R ESCROW AGENT Ot L22 DIAPER DERMATITIS 10/12/2017 CARSON LARRY R ESCROW AGENT Ot L97.122 NON-PRESSURE CHRONIC ULCER OF LEFT THIGH 10/12/2017 LARRY BYRD R ESCROW AGENT Ot R32 UNSPECIFIED URINARY INCONTINENCE 10/18/2017 CARSON LARRY R ESCROW AGENT Ot E66.01 MORBID (SEVERE) OBESITY DUE TO EXCESS CA 10/18/2017 LARRY BYRD R ESCROW AGENT Ot L22 DIAPER DERMATITIS 10/18/2017 CARSON LARRY R ESCROW AGENT Ot L97.122 NON-PRESSURE CHRONIC ULCER OF LEFT THIGH 10/18/2017 LARRY BYRD R ESCROW AGENT Ot R32 UNSPECIFIED URINARY INCONTINENCE 11/01/2017 LARRY BYRD ESCROW AGENT Ot E66.01 MORBID (SEVERE) OBESITY DUE TO EXCESS CA 11/01/2017 LARRY BYRD ESCROW AGENT Ot L22 DIAPER DERMATITIS 11/01/2017 LARRY BYRD ESCROW AGENT Ot L97.122 NON-PRESSURE CHRONIC ULCER OF LEFT THIGH 11/01/2017 LARRY BYRD APRN Ot R32 UNSPECIFIED URINARY INCONTINENCE 12/13/2017 LARRY BYRD ESCROW AGENT Ot E66.01 MORBID (SEVERE) OBESITY DUE TO EXCESS CA 12/13/2017 LARRY BYRD ESCROW AGENT Ot I87.332 CHRONIC VENOUS HTN W ULCER AND INFLAMMAT 12/13/2017 LARRY BYRD ESCROW AGENT Ot L89.222 PRESSURE ULCER OF LEFT HIP, STAGE 2 12/13/2017 LARRY BYRD APRN Ot L97.222 NON-PRESSURE CHRONIC ULCER OF LEFT CALF 12/13/2017 LARRY BYRD ESCROW AGENT Ot Z68.43 BODY MASS INDEX (BMI) 50-59.9 , ADULT 12/19/2017 LARRY BYRD APRN Ot E66.01 MORBID (SEVERE) OBESITY DUE TO EXCESS CA 12/19/2017 LARRY BYRD ESCROW AGENT Ot I87.332 CHRONIC VENOUS HTN W ULCER AND INFLAMMAT 12/19/2017 LARRY BYRD ESCROW AGENT Ot J44.9 CHRONIC OBSTRUCTIVE PULMONARY DISEASE, U 12/19/2017 LARRY BYRD ESCROW AGENT Ot L89.222 PRESSURE ULCER OF LEFT HIP, STAGE 2 01/01/2018 LARRY BYRD ESCROW AGENT Ot E66.01 MORBID (SEVERE) OBESITY DUE TO EXCESS CA 01/01/2018 LARRY BYRD ESCROW AGENT Ot I87.332 CHRONIC VENOUS HTN W ULCER AND INFLAMMAT 01/01/2018 LARRY BYRD ESCROW AGENT Ot L89.222 PRESSURE ULCER OF LEFT HIP, STAGE 2 01/01/2018 LARRY BYRD ESCROW AGENT Ot L97.222 NON-PRESSURE CHRONIC ULCER OF LEFT CALF 01/01/2018 LARRY BYRD [employer] AGENT Ot Z68.43 BODY MASS INDEX (BMI) 50-59.9 , ADULT 01/08/2018 LARRY BYRD [employer] AGENT Ot E66.01 MORBID (SEVERE) OBESITY DUE TO EXCESS CA 01/08/2018 LARRY BYRD [employer] AGENT Ot I87.332 CHRONIC VENOUS HTN W ULCER AND INFLAMMAT 01/08/2018 LARRY BYRD APRN Ot J44.9 CHRONIC OBSTRUCTIVE PULMONARY DISEASE, U 01/08/2018 LARRY BYRD APRN Ot L89.222 PRESSURE ULCER OF LEFT HIP, STAGE 2 06/14/2018 AURORA STACK DO Ot R82.998 OTHER ABNORMAL FINDINGS IN URINE 07/03/2018 AURORA STACK DO Ot R82.998 OTHER ABNORMAL FINDINGS IN URINE Procedures Code Description Performed By Performed On 54.59 OTH LYSIS-PERITONEAL ADHES 07/20/2009 65.61 OTH REMOVE BOTH OVARIES/ TUBES 07/20/2009 68.39 OTHER AND UNSPECIFIED SUBTOTAL ABDOMINAL 07/20/2009 37.22 LEFT HEART CARDIAC CATH 10/11/2012 88.53 LT HEART ANGIOCARDIOGRAM 10/11/2012 88.56 CORONAR ARTERIOGR-2 CATH 10/11/2012 96.04 INSERT ENDOTRACHEAL TUBE 11/04/2014 Results Test Result Range Complete blood count (CBC) with automated white blood cell (WBC) differential - 07/10/16 19:37 Blood leukocytes automated count (number/volume) 7.8 10*3/uL 4.3-11.0 Blood erythrocytes automated count (number/volume) 4.09 10*6/uL 4.35-5.85 Venous blood hemoglobin measurement (mass/volume) 12.7 g/dL 11.5-16.0 Blood hematocrit (volume fraction) 41 % 35-52 Automated erythrocyte mean corpuscular volume 101 [foz_us] 80-99 Automated erythrocyte mean corpuscular hemoglobin (mass per erythrocyte) 31 pg 25-34 Automated erythrocyte mean corpuscular hemoglobin concentration measurement ( mass/volume) 31 g/dL 32-36 Automated erythrocyte distribution width ratio 14.5 % 10.0-14.5 Automated blood platelet count (count/volume) 96 10*3/uL 130-400 Automated blood platelet mean volume measurement 10.3 [foz_us] 7.4-10.4 Automated blood neutrophils/100 leukocytes 95 % 42-75 Automated blood lymphocytes/100 leukocytes 2 % 12-44 Blood monocytes/100 leukocytes 3 % 0-12 Automated blood eosinophils/100 leukocytes 1 % 0-10 Automated blood basophils/100 leukocytes 0 % 0-10 Blood neutrophils automated count (number/volume) 7.4 10*3 1.8-7.8 Blood lymphocytes automated count (number/volume) 0.1 10*3 1.0-4.0 Blood monocytes automated count (number/volume) 0.2 10*3 0.0-1.0 Automated eosinophil count 0.1 10*3/uL 0.0-0.3 Automated blood basophil count (count/volume) 0.0 10*3/uL 0.0-0.1 PT panel in platelet poor plasma by coagulation assay - 07/10/16 19:37 Prothrombin time (PT) in platelet poor plasma by coagulation assay 13.5 s 12.2-14.7 INR in platelet poor plasma or blood by coagulation assay 1.1 0.8-1.4 Activated partial thromboplastin time (aPTT) in platelet poor plasma bycoagulation assay - 07/10/16 19:37 Activated partial thromboplastin time (aPTT) in platelet poor plasma bycoagulation assay 28 s 24-35 Comprehensive metabolic panel - 07/10/16 19:37 Serum or plasma sodium measurement (moles/volume) 145 mmol/L 135-145 Serum or plasma potassium measurement (moles/volume) 4.9 mmol/L 3.6-5.0 Serum or plasma chloride measurement (moles/volume) 105 mmol/L 98-107 Carbon dioxide 27 mmol/L 21-32 Serum or plasma anion gap determination (moles/volume) 13 mmol/L 5-14 Serum or plasma urea nitrogen measurement (mass/volume) 54 mg/dL 7-18 Serum or plasma creatinine measurement (mass/volume) 1.35 mg/dL 0.60-1.30 Serum or plasma urea nitrogen/creatinine mass ratio 40 NRG Serum or plasma creatinine measurement with calculation of estimated glomerular filtration rate 39 NRG Serum or plasma glucose measurement (mass/volume) 161 mg/dL 70-105 Serum or plasma calcium measurement (mass/volume) 9.1 mg/dL 8.5-10.1 Serum or plasma total bilirubin measurement (mass/volume) 0.3 mg/dL 0.1-1.0 Serum or plasma alkaline phosphatase measurement (enzymatic activity/volume) 91 U/L 40-136 Serum or plasma aspartate aminotransferase measurement (enzymatic activity/ volume) 12 U/L 5-34 Serum or plasma alanine aminotransferase measurement (enzymatic activity/volume ) 15 U/L 0-55 Serum or plasma protein measurement (mass/volume) 7.5 g/dL 6.4-8.2 Serum or plasma albumin measurement (mass/volume) 3.8 g/dL 3.2-4.5 Magnesium - 07/10/16 19:37 Magnesium 2.0 mg/dL 1.8-2.4 Serum or plasma amylase measurement (enzymatic activity/volume) - 07/10/16 19: 37 Serum or plasma amylase measurement (enzymatic activity/volume) 67 U /L 25-125 Lipase - 07/10/16 19:37 Lipase 32 U/L 8-78 Blood manual differential performed detection - 07/10/16 19:37 Blood monocytes/100 leukocytes 2 % NRG Manual blood segmented neutrophils/100 leukocytes 89 % NRG Blood band neutrophils/100 leukocytes 4 % NRG Manual blood lymphocytes/100 leukocytes 3 % NRG Manual eosinophils/100 leukocytes in nose 1 % NRG Manual blood basophils/100 leukocytes 1 % NRG Blood macrocytes detection by light microscopy SLIGHT NRG Manual blood nucleated erythrocytes/100 leukocytes ratio 1 NRG Serum or plasma thyrotropin measurement by detection limit <=0.05 miu/l (units/ volume) - 07/10/16 19:37 Serum or plasma thyrotropin measurement by detection limit <=0.05 miu/l (units/ volume) 1.57 u[iU]/mL 0.35-4.94 Complete urinalysis with reflex to culture - 07/10/16 19:54 Urine color determination YELLOW NRG Urine clarity determination SLIGHTLY CLOUDY NRG Urine pH measurement by test strip 6 5-9 Specific gravity of urine by test strip 1.015 1.016- 1.022 Urine protein assay by test strip, semi-quantitative 3+ NEGATIVE Urine glucose detection by automated test strip NEGATIVE NEGATIVE Erythrocytes detection in urine sediment by light microscopy 2+ NEGATIVE Urine ketones detection by automated test strip NEGATIVE NEGATIVE Urine nitrite detection by test strip NEGATIVE NEGATIVE Urine total bilirubin detection by test strip NEGATIVE NEGATIVE Urine urobilinogen measurement by automated test strip (mass/volume) NORMAL NORMAL Urine leukocyte esterase detection by dipstick 1+ NEGATIVE Automated urine sediment erythrocyte count by microscopy (number/high power field) [HPF] NRG Automated urine sediment leukocyte count by microscopy (number/high power field ) [HPF] NRG Bacteria detection in urine sediment by light microscopy FEW NRG Squamous epithelial cells detection in urine sediment by light microscopy 2-5 NRG Crystals detection in urine sediment by light microscopy PRESENT NRG Casts detection in urine sediment by light microscopy NONE NRG Mucus detection in urine sediment by light microscopy SMALL NRG Complete urinalysis with reflex to culture NO NRG Amorphous sediment detection in urine sediment by light microscopy MOD OANH URATES NRG Bacterial urine culture - 07/10/16 19:54 Bacterial urine culture [id number] NRG COLONY COUNT <10,000 NRG FTX;REPORTABLE SENSITIVITY REPORTED 07/12/16 8:15 NRG FREE TEXT ENTRY 2 PLUS, MIXED GRAM POSITIVES <10,000/ML NRG Bacterial susceptibility panel - 07/10/16 19:54 Gentamicin susceptibility test by minimum inhibitory concentration 4 NRG Trimethoprim/sulfamethoxazole susceptibility test by minimum inhibitoryconcentration >= NRG Ampicillin susceptibility test by minimum inhibitory concentration > = NRG Tobramycin susceptibility test by minimum inhibitory concentration 2 NRG Cefazolin susceptibility test by minimum inhibitory concentration S NRG Ceftriaxone susceptibility test by minimum inhibitory concentration S NRG Ampicillin/sulbactam susceptibility test by minimum inhibitory concentration 4 NRG Piperacillin/tazobactam susceptibility test by minimum inhibitory concentration <= NRG Ciprofloxacin susceptibility test by minimum inhibitory concentration >= NRG Meropenem susceptibility test by minimum inhibitory concentration < = NRG Nitrofurantoin susceptibility test by minimum inhibitory concentration R NRG Aztreonam susceptibility test by minimum inhibitory concentration S NRG Arterial blood gas measurement - 12/20/16 12:22 Blood pCO2 68 mm[Hg] 35-45 Blood pO2 79 mm[Hg] 79-93 Arterial blood bicarbonate measurement (moles/volume) 37 mmol/L 23-27 Arterial blood base excess by calculation 11.3 mmol/L - 2.5-2.5 Arterial blood oxygen saturation measurement 97 % 94-100 * Inhaled oxygen flow rate 3 NRG Arterial blood pH measurement with patient temperature correction 7.36 7.37-7.43 Arterial blood carbon dioxide, total measurement (moles/volume) 39.3 mmol/L 21.0-31.0 Body site RR NRG Assessment of wrist artery patency prior to arterial puncture YES- POS NRG Setting of ventilation mode NO NRG Measurement of body temperature 97.8 NRG Complete urinalysis with reflex to culture - 06/11/18 18:15 Urine color determination YELLOW NRG Urine clarity determination CLEAR NRG Urine pH measurement by test strip 6 5-9 Specific gravity of urine by test strip 1.010 1.016- 1.022 Urine protein assay by test strip, semi-quantitative 1+ NEGATIVE Urine glucose detection by automated test strip NEGATIVE NEGATIVE Erythrocytes detection in urine sediment by light microscopy NEGATIVE NEGATIVE Urine ketones detection by automated test strip NEGATIVE NEGATIVE Urine nitrite detection by test strip NEGATIVE NEGATIVE Urine total bilirubin detection by test strip NEGATIVE NEGATIVE Urine urobilinogen measurement by automated test strip (mass/volume) NORMAL NORMAL Urine leukocyte esterase detection by dipstick 1+ NEGATIVE Automated urine sediment erythrocyte count by microscopy (number/high power field) NONE NRG Automated urine sediment leukocyte count by microscopy (number/high power field ) [HPF] NRG Bacteria detection in urine sediment by light microscopy FEW NRG Squamous epithelial cells detection in urine sediment by light microscopy RARE NRG Crystals detection in urine sediment by light microscopy NONE NRG Casts detection in urine sediment by light microscopy NONE NRG Mucus detection in urine sediment by light microscopy NEGATIVE NRG Complete urinalysis with reflex to culture YES NRG Bacterial urine culture - 06/11/18 18:15 Bacterial urine culture [id number] NRG COLONY COUNT >100,000/ML NRG FTX;REPORTABLE ID REPORTED 06/12/18 17:05 NRG FREE TEXT ENTRY 2 SUSCEPTIBILITY REPORTED 06-14-18, 09 NR FREE TEXT ENTRY 3 FINAL REPORT NRG RML Sensitivity Panel - 06/11/18 18:15 Gentamicin susceptibility test by minimum inhibitory concentration < = NRG Trimethoprim/sulfamethoxazole susceptibility test by minimum inhibitoryconcentration > NRG Levofloxacin susceptibility test by minimum inhibitory concentration > NRG Ampicillin susceptibility test by minimum inhibitory concentration > NRG Cefazolin susceptibility test by minimum inhibitory concentration > NRG Ceftriaxone susceptibility test by minimum inhibitory concentration > NRG Ciprofloxacin susceptibility test by minimum inhibitory concentration > NRG Meropenem susceptibility test by minimum inhibitory concentration < = NRG Nitrofurantoin susceptibility test by minimum inhibitory concentration <= NRG Cefepime susceptibility test by minimum inhibitory concentration <= NRG Amoxicillin and clavulanate potassium susc QUYEN = NRG Complete blood count (CBC) with automated white blood cell (WBC) differential - 10/15/18 21:53 Blood leukocytes automated count (number/volume) 7.6 10*3/uL 4.3-11.0 Blood erythrocytes automated count (number/volume) 3.67 10*6/uL 4.35-5.85 Venous blood hemoglobin measurement (mass/volume) 10.3 g/dL 11.5-16.0 Blood hematocrit (volume fraction) 38 % 35-52 Automated erythrocyte mean corpuscular volume 104 [foz_us] 80-99 Automated erythrocyte mean corpuscular hemoglobin (mass per erythrocyte) 28 pg 25-34 Automated erythrocyte mean corpuscular hemoglobin concentration measurement ( mass/volume) 27 g/dL 32-36 Automated erythrocyte distribution width ratio 15.5 % 10.0-14.5 Automated blood platelet count (count/volume) 105 10*3/uL 130-400 Automated blood platelet mean volume measurement 10.6 [foz_us] 7.4-10.4 Automated blood neutrophils/100 leukocytes 91 % 42-75 Automated blood lymphocytes/100 leukocytes 4 % 12-44 Blood monocytes/100 leukocytes 4 % 0-12 Automated blood eosinophils/100 leukocytes 2 % 0-10 Automated blood basophils/100 leukocytes 0 % 0-10 Blood neutrophils automated count (number/volume) 6.9 10*3 1.8-7.8 Blood lymphocytes automated count (number/volume) 0.3 10*3 1.0-4.0 Blood monocytes automated count (number/volume) 0.3 10*3 0.0-1.0 Automated eosinophil count 0.1 10*3/uL 0.0-0.3 Automated blood basophil count (count/volume) 0.0 10*3/uL 0.0-0.1 PT panel in platelet poor plasma by coagulation assay - 10/15/18 21:53 Prothrombin time (PT) in platelet poor plasma by coagulation assay 14.6 s 12.2-14.7 INR in platelet poor plasma or blood by coagulation assay 1.1 0.8-1.4 Activated partial thromboplastin time (aPTT) in platelet poor plasma bycoagulation assay - 10/15/18 21:53 Activated partial thromboplastin time (aPTT) in platelet poor plasma bycoagulation assay 35 s 24-35 Comprehensive metabolic panel - 10/15/18 21:53 Serum or plasma sodium measurement (moles/volume) 152 mmol/L 135-145 Serum or plasma potassium measurement (moles/volume) 4.1 mmol/L 3.6-5.0 Serum or plasma chloride measurement (moles/volume) 107 mmol/L 98-107 Carbon dioxide 34 mmol/L 21-32 Serum or plasma anion gap determination (moles/volume) 11 mmol/L 5-14 Serum or plasma urea nitrogen measurement (mass/volume) 27 mg/dL 7-18 Serum or plasma creatinine measurement (mass/volume) 1.71 mg/dL 0.60-1.30 Serum or plasma urea nitrogen/creatinine mass ratio 16 NRG Serum or plasma creatinine measurement with calculation of estimated glomerular filtration rate 30 NRG Serum or plasma glucose measurement (mass/volume) 142 mg/dL 70-105 Serum or plasma calcium measurement (mass/volume) 9.9 mg/dL 8.5-10.1 Serum or plasma total bilirubin measurement (mass/volume) 0.3 mg/dL 0.1-1.0 Serum or plasma alkaline phosphatase measurement (enzymatic activity/volume) 103 U/L 40-136 Serum or plasma aspartate aminotransferase measurement (enzymatic activity/ volume) 11 U/L 5-34 Serum or plasma alanine aminotransferase measurement (enzymatic activity/volume ) 9 U/L 0-55 Serum or plasma protein measurement (mass/volume) 8.3 g/dL 6.4-8.2 Serum or plasma albumin measurement (mass/volume) 4.0 g/dL 3.2-4.5 CALCIUM CORRECTED 9.9 mg/dL 8.5-10.1 Magnesium - 10/15/18 21:53 Magnesium 2.3 mg/dL 1.8-2.4 Serum or plasma creatine kinase measurement (enzymatic activity/volume) - 10/15 21:53 Serum or plasma creatine kinase measurement (enzymatic activity/volume) 12 U/L 29-168 Blood manual differential performed detection - 10/15/18 21:53 Blood monocytes/100 leukocytes 5 % NRG Manual blood segmented neutrophils/100 leukocytes 91 % NRG Blood band neutrophils/100 leukocytes 1 % NRG Manual blood lymphocytes/100 leukocytes 3 % NRG Manual eosinophils/100 leukocytes in nose 0 % NRG Manual blood basophils/100 leukocytes 0 % NRG Blood macrocytes detection by light microscopy SLIGHT NRG Serum or plasma creatine kinase MB measurement (enzymatic activity/volume) - 21:53 Serum or plasma creatine kinase MB measurement (enzymatic activity/volume) 0.8 ng/mL <6.6 Serum or plasma troponin i.cardiac measurement (mass/volume) - 10/15/18 21:53 Serum or plasma troponin i.cardiac measurement (mass/volume) < ng/ mL <0.028 Serum or plasma lithium measurement (moles/volume) - 10/15/18 21:53 BNP level 364.6 pg/mL <100.0 Blood lactic acid measurement (moles/volume) - 10/15/18 22:01 Blood lactic acid measurement (moles/volume) 0.53 mmol/L 0.50-2.00 Arterial blood gas measurement - 10/15/18 22:24 Blood pCO2 84 mm[Hg] 35-45 Blood pO2 92 mm[Hg] 79-93 Arterial blood bicarbonate measurement (moles/volume) 34 mmol/L 23-27 Arterial blood base excess by calculation 6.9 mmol/L -2.5 -2.5 Arterial blood oxygen saturation measurement 96 % 94-100 * Inhaled oxygen flow rate 6L NRG Arterial blood pH measurement with patient temperature correction 7.23 7.37-7.43 Arterial blood carbon dioxide, total measurement (moles/volume) 36.7 mmol/L 21.0-31.0 Body site RIGHT RADIAL NRG Assessment of wrist artery patency prior to arterial puncture YES- POS NRG Setting of ventilation mode NO NRG Measurement of body temperature 98.9 NRG Influenza virus A and B antigen detection - 10/15/18 22:59 FLU RESULT NEGATIVE FOR INFLUENZA A AND B ANTIGENS BY IA NRG Arterial blood gas measurement - 10/16/18 00:53 Blood pCO2 85 mm[Hg] 35-45 Blood pO2 80 mm[Hg] 79-93 Arterial blood bicarbonate measurement (moles/volume) 34 mmol/L 23-27 Arterial blood base excess by calculation 6.4 mmol/L -2.5 -2.5 Arterial blood oxygen saturation measurement 93 % 94-100 * Inhaled oxygen flow rate 40% NRG Arterial blood pH measurement with patient temperature correction 7.23 7.37-7.43 Arterial blood carbon dioxide, total measurement (moles/volume) 36.3 mmol/L 21.0-31.0 Body site RIGHT RADIAL NRG Assessment of wrist artery patency prior to arterial puncture YES- POS NRG Setting of ventilation mode NO NRG Measurement of body temperature 98.6 NRG Encounters ACCT No. Visit Date/Time Discharge Status Pt. Type Provider Facility Loc./Unit Complaint [id number] 07/24/2018 07:39:00 07/24/2018 23:59:59 CLS Preadmit AURORA STACK DO [facility] RAD LOWER ABD PAIN [id number] 06/11/2018 18:12:00 06/11/2018 23:59:59 CLS Outpatient AURORA STACK DO [facility] LABNPT UTI [id number] 12/25/2017 14:15:00 12/25/2017 23:59:59 CLS Preadmit TEVIN BYRDN R ESCROW AGENT [facility] WOUNDCARE [id number] 12/18/2017 09:21:00 12/18/2017 23:59:59 CLS Outpatient CARSON, LARRY R ESCROW AGENT [facility] WOUNDCARE [id number] 12/11/2017 09:43:00 12/11/2017 23:59:59 CLS Outpatient CARSON, LARRY R ESCROW AGENT [facility] WOUNDCARE [id number] 10/11/2017 14:59:00 10/11/2017 23:59:59 CLS Outpatient CARSON LARRY R ESCROW AGENT [facility] WOUNDCARE [id number] 09/27/2017 15:02:00 09/27/2017 23:59:59 CLS Outpatient CARSON, LARRY R [employer]OW AGENT [facility] WOUNDCARE [id number] 09/13/2017 13:20:00 09/13/2017 23:59:59 CLS Outpatient CARSON, LARRY R [employer]OW AGENT [facility] WOUNDCARE [id number] 08/30/2017 14:23:00 08/30/2017 23:59:59 CLS Outpatient CARSON, LARRY R [employer] AGENT [facility] WOUNDCARE [id number] 08/30/2017 08:51:00 08/30/2017 23:59:59 CLS Preadmit NELL MCMAHAN MD [facility] RAD CHRONIC KIDNEY DISEASE [id number] 08/23/2017 14:35:00 08/23/2017 23:59:59 CLS Outpatient CARSON LARRY R [employer]OW AGENT [facility] WOUNDCARE [id number] 08/16/2017 14:50:00 08/16/2017 23:59:59 CLS Outpatient CARSON, LARRY R [employer] AGENT [facility] WOUNDCARE [id number] 08/09/2017 15:00:00 08/09/2017 23:59:59 CLS Outpatient LARRY BYRD APRN [facility] WOUNDCARE [id number] 08/06/2017 11:30:00 08/06/2017 23:59:59 CLS Outpatient KATHIE MORENO, RINA Mata [facility] WOUNDCARE [id number] 08/02/2017 14:03:00 08/02/2017 23:59:59 CLS Outpatient LARRY BYRD APRN [facility] WOUNDCARE [id number] 07/23/2017 13:35:00 07/23/2017 23:59:59 CLS Outpatient DYANA MORENO, JANA Sandoval [facility] CARD I25.10 CAD [id number] 12/20/2016 11:25:00 12/20/2016 23:59:59 CLS Outpatient AURORA STACK DO [facility] LAB HIGH CO2,COPD [id number] 07/10/2016 19:35:00 07/10/2016 21:50:00 DIS Emergency NAINA REID DO [facility] ER N,V,D [id number] 03/13/2016 16:53:00 03/13/2016 23:59:59 CLS Outpatient AURORA STACK DO [facility] RAD COPD [id number] 02/03/2016 13:14:00 02/03/2016 23:59:59 CLS Outpatient AURORA STACK DO [facility] RAD R HIP PAIN [id number] 12/14/2015 15:45:00 12/14/2015 23:59:59 CLS Outpatient AURORA STACK DO [facility] RAD COPD [id number] 11/02/2014 22:13:00 11/04/2014 13:10:00 DIS Inpatient AURORA STACK DO [facility] ICU DYSPENA,CHF [id number] 10/18/2014 23:41:00 10/22/2014 15:10:00 DIS Inpatient AURORA STACK DO [facility] SURGICAL S/P FALL; R HIP CONTUSION; UNABLE TO CARE FOR SELF [id number] 04/20/2014 15:42:00 04/20/2014 19:15:00 DIS Emergency MATTHEW MORENO, RAPHAEL Brito [facility] ER LOWER ABD PAIN, DIARRHEA [id number] 11/20/2012 14:03:00 11/20/2012 23:59:59 CLS Outpatient GERMANIA QUARLES DO [facility] RT SOB [id number] 10/15/2018 22:14:00 Document Registration [id number] 11/02/2014 22:32:00 Document Registration [id number] 11/02/2014 22:32:00 Document Registration [id number] 11/02/2014 22:32:00 Document Registration [id number] 10/09/2012 21:40:00 Document Registration [id number] 08/23/2012 13:35:00 Document Registration [id number] 02/04/2012 10:06:00 Document Registration [id number] 01/26/2012 18:49:00 Document Registration [id number] 08/09/2009 12:00:00 Document Registration [id number] 07/13/2009 15:51:00 Document Registration [id number] 06/22/2009 09:22:00 Document Registration
[2018-10-16] MEDS ORDERED: WATER (STERILE) FOR INJECTION 10 ML ONE (01:20)
[2018-10-16] MEDS ORDERED: cefTRIAXone 1,000 MG IV (ROCEPHIN) VIAL ONE (01:20)
[2018-10-16 01:40] LABS: BACTERIA,URINE NEGATIVE /HPF
[2018-10-16] MEDS: RT-ALBUTEROL/IPRATROPIUM 3 ML (DUONEB) VIAL INH SCH ×4 (02:11→13:28)
[2018-10-16] MEDS: methylPREDNISolone 125 MG (Solu-MEDROL) VIAL IVP SCH ×2 (03:41→10:46)
[2018-10-16 04:15] LABS: BASOPHILS % (AUTO) 0 % (0-10); EOSINOPHILS % (AUTO) 1 % (0-10); HEMATOCRIT 33 % (35-52); HEMOGLOBIN 8.9 G/DL (11.5-16.0); LYMPHOCYTES # (AUTO) 0.2 X 10^3 (1.0-4.0); LYMPHOCYTES % (AUTO) 3 % (12-44); MEAN CORPUSCULAR HEMOGLOBIN 28 PG (25-34); MEAN CORPUSCULAR HGB CONC 27 G/DL (32-36); MEAN CORPUSCULAR VOLUME 104 FL (80-99); MEAN PLATELET VOLUME 11.3 FL (7.4-10.4); MONOCYTES # (AUTO) 0.1 X 10^3 (0.0-1.0); MONOCYTES % (AUTO) 2 % (0-12); NEUTROPHILS # (AUTO) 7.3 X 10^3 (1.8-7.8); NEUTROPHILS % (AUTO) 95 % (42-75); PLATELET COUNT 95 10^3/uL (130-400); RED CELL DISTRIBUTION WIDTH 15.3 % (10.0-14.5); WHITE BLOOD COUNT 7.7 10^3/uL (4.3-11.0)
[2018-10-16 04:36] LABS: ALBUMIN 3.6 GM/DL (3.2-4.5); BILIRUBIN,TOTAL 0.3 MG/DL (0.1-1.0); CALCIUM 9.4 MG/DL (8.5-10.1); CREATININE SERUM 1.64 MG/DL (0.60-1.30); MAGNESIUM 2.1 MG/DL (1.8-2.4); PHOSPHORUS 4.1 MG/DL (2.3-4.7); POTASSIUM 3.9 MMOL/L (3.6-5.0); TOTAL PROTEIN 7.5 GM/DL (6.4-8.2)
[2018-10-16 04:51] LABS: ABG BASE EXCESS 6.6 MMOL/L (-2.5-2.5); ABG OXYGEN SATURATION 94 % (94-100); ABG PO2 72 MMHG (79-93); ABG TCO2 35.7 MMOL/L (21.0-31.0)
--- NOTE | 2018-10-16 04:52 | Pulmonary Consultation ---
History of Present Illness History of Present Illness Date of Consultation 10/16/18 04:47 Time Seen by Provider: 04:47 Date of Admission History of Present Illness 67yo with hx of chronic respiratory failure, ventilator and hx of tracheostomy x2, and CHF presented from [facility] secondary to worsening SOB that started yesterday. Pt was found to be hypoxic with Sp02 in the 70's. She has used BiPAP through the night which did improve respiratory acidosis. Pt is currently refusing BiPAP and pulling mask off. I am consulted for pulmonary/ICU management. Allergies and Home Medications Allergies Coded Allergies: risperidone (Verified Allergy, Unknown, 10/16/18) simvastatin (Unverified Adverse Reaction, Unknown, 04/20/14) Home Medications Allopurinol 300 Mg Tablet, 300 MG PO DAILY, (Reported) Budesonide/Formoterol Fumarate 10.2 Gm Hfa.aer.ad, 1 INHALER INH UD, (Reported) Cholecalciferol 1,000 Unit Tab, 1,000 UNIT PO BID, (Reported) Docosahexanoic Acid/Epa 1 Cap Capsule, 1,000 MG PO DAILY, (Reported) Docusate Sodium 100 Mg Cap, 100 MG PO BID, (Reported) Famotidine 20 Mg Tablet, 1 TAB PO UD, (Reported) Fluticasone Propionate 16 Gm Naspr, 1 SPRAY NS BID, (Reported) Fluticasone/Salmeterol 1 Disk Inhp, 1 PUFF IH BID, (Reported) Furosemide 20 Mg Tablet, 20-40 MG PO DAILY PRN for SWELLING, (Reported) TAKES 1 TO 2 (20MG) TABLETS Furosemide 40 Mg Tablet, 40 MG PO DAILY X 3 DAYS, (Reported) ORDERED 5-11-15 40MG DAILY X 3 DAYS FOR EDEMA Gabapentin 100 Mg Capsule, 100 MG PO DAILY PRN for PAIN, (Reported) Garlic 1,000 Mg Capsule, 1,000 MG PO DAILY, (Reported) Hydrocodone Bit/Acetaminophen 1 Tab Tablet, 1 TAB PO Q6H PRN for PAIN, (Reported ) Hydrocodone Bit/Acetaminophen 1 Each Tablet, 1 TAB PO UD, (Reported) Ibuprofen 200 Mg Tablet, 200 MG PO Q8H PRN for PAIN, (Reported) Levothyroxine Sodium 200 Mcg Tablet, 200 MCG PO DAILY, (Reported) Metoprolol Tartrate 25 Mg Tablet, 1 TAB PO UD, (Reported) Montelukast Sodium 10 Mg Tablet, 10 MG PO HS, (Reported) Multivitamin No.44/Vit D3/K 1 Each Capsule, 1 CAP PO DAILY, (Reported) Nitrofurantoin Monohyd/M-Cryst 100 Mg Capsule, 100 MG PO BID Prescribed by: NAINA REID on 07/10/162119 Ondansetron 4 Mg Tab.rapdis, 1 TAB PO UD, (Reported) Triamcinolone Acet 15 Gm Cr, 1 TUBE TD UD, (Reported) Past Ozdvaas-Gozsvj-Gzhkwx Hx Patient Social History Alcohol Use: Past History Recreational Drug Use: No Smoking Status: Former Smoker (QUIT SEVERAL YEARS AGO) Type Used: Cigarettes Recent Foreign Travel: No Contact w/Someone Who Travel: No Recent Infectious Disease Expo: No Immunizations Up To Date Tetanus Booster (TDap): More than 5yrs Date of Pneumonia Vaccine: Sep 11, 2016 Seasonal Allergies Seasonal Allergies: Yes Past Medical History Surgeries: Yes (RIGHT CARPAL TUNNEL; D&C; PERICARDIAL WINDOW; LEFT THORACOTOMY ; I&D'S; RIGHT HAND TENDON REPAIR; HYST/BSO; LEFT EYE SURGERY; TRACH X 2) Cardiac, Eye Surgery, Hysterectomy, Oophorectomy, Orthopedic, Tracheostomy Respiratory: Yes (LEFT THORACOTOMY; VENTILATOR WITH TRACH X 2; MULTIORGAN FAILURE WITH PNEUMONIA AND TRACH; CHRONIC RESPIRATORY FAILURE; CHF ) Asthma, Pneumonia, COPD Cardiac: Yes (PERICARDIAL WINDOW 1993) Atrial Fibrillation, Chronic Edema/Swelling, High Cholesterol, Hypertension Neurological: Yes (NEUROPATHY IN FEET) Neuropathy : No 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 Disorders: Yes (ENDOMETRIAL HYPERPLASIA) 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, Menopausal Sexually Transmitted Disease: No Genitourinary: Yes (ON DIALYSIS WHILE SICK WITH PNEUMONIA/MULTIORGAN FAILURE) Renal Failure Gastrointestinal: Yes Abdominal Hernia, Gastroesophageal Reflux Musculoskeletal: Yes (OA; RIGHT CARPAL TUNNEL AND TENDON REPAIR; GENERALIZED PAIN AND WEAKNESS--MINIMALLY AMBLATORY/ESSENTIALLY WHEELCHAIR-BOUND; CHRONIC NECK AND BACK PAIN) Arthritis, Chronic Back Pain, Gout Endocrine: Yes (MORBID OBESITY) Hypothyroidsim HEENT: Yes (HX OF TRACH; LEFT EYE SURGERY) Tinnitis Cancer: No Psychosocial: Yes Anxiety, Depression Integumentary: Yes (LEG ULCERS; VENOUS STASIS ) Adverse Reaction/Blood Tranf: No Family Medical History Alzheimer's disease Arthritis Asthma Completed stroke Dementia Diabetes mellitus Glaucoma Hypertension Kidney disease Myocardial infarction Psychosocial problem Respiratory disorder Severe allergy Thyroid disease Visual disorder No Family History of: AIDS Abdominal aortic aneurysm Jae's disease Alcoholism Aphasia Cancer of mouth Cardiovascular disease Cataracts Colon cancer Congenital disease Congenital heart disease Coronary thrombosis Cystic fibrosis Deafness or hearing loss Drug abuse Dysphasia Fibrocystic disease of breast Gastroenteritis Headache disorder Hypercholesterolemia Infertility Neoplasm Not obtainable due to adoption Osteoporosis Parkinson's disease Prostate cancer Seizure disorder Tuberculosis Review of Systems Time Seen by Provider: 05:14 Sepsis Event Evaluation Height, Weight, BMI Height: 5'4.00" Weight: 248lbs. 3.0oz. 112.803675zf; 42.6 BMI Method:Stated Exam Exam Vital Signs Date Time Temp Pulse Resp B/P (MAP) Pulse Ox O2 Delivery O2 Flow Rate FiO2 10/16/18 04:00 87 19 119/4 (42) 94 NIV Bilevel 35.00 10/16/18 03:50 98.5 NIV Bilevel 35.00 10/16/18 03:45 93 NIV Bilevel 35 10/16/18 03:30 90 24 116/63 (80) 94 NIV Bilevel 35.00 10/16/18 03:00 94 36 120/89 (99) 91 NIV Bilevel 35.00 10/16/18 02:45 91 21 118/64 (82) 93 NIV Bilevel 35.00 10/16/18 02:30 90 20 115/65 (82) 94 NIV Bilevel 35.00 10/16/18 02:24 NIV Bilevel 35 10/16/18 02:15 87 19 130/72 (91) 94 NIV Bilevel 35.00 10/16/18 02:08 92 31 94 55.00 10/16/18 02:00 93 16 150/142 (145) 96 NIV Bilevel 40.00 10/16/18 01:45 93 20 133/120 (124) 97 NIV Bilevel 40.00 10/16/18 01:30 92 27 136/82 (100) 96 NIV Bilevel 40.00 10/16/18 01:25 98.6 94 22 127/83 (98) 96 NIV Bilevel 40.00 10/16/18 01:12 85 98 40 10/16/18 01:00 97 11 111/79 (90) 97 NIV Bilevel 40.00 10/16/18 01:00 97 10/16/18 00:51 93 18 112/55 (74) 98 NIV Bilevel 40.00 10/16/18 00:09 85 22 100 40.00 10/15/18 22:39 98.6 91 22 161/84 96 5.00 10/15/18 22:25 96 OxyMask 5.00 10/15/18 21:40 98 OxyMask 10.00 10/15/18 21:40 98.9 91 22 161/84 (109) 98 OxyMask I & O 10/16/18 07:00 Intake Total 260 ml Output Total 275 ml Balance -15 ml Height & Weight Height: 5'4.00" Weight: 248lbs. 3.0oz. 112.677346ay; 42.6 BMI Method:Stated General Appearance: Anxious, Chronically ill, Moderate Distress, Obese HEENT: PERRL/EOMI, Normal ENT Inspection, Pharynx Normal Neck: Full Range of Motion, Normal Inspection, Non Tender, Supple Respiratory: Accessory Muscle Use, Decreased Breath Sounds, Respiratory Distress Cardiovascular: Regular Rate, Rhythm, No Edema Capillary Refill: Less Than 3 Seconds Gastrointestinal: soft Neurologic/Psychiatric: Alert, Oriented x3 Skin: Normal Color, Warm/Dry Lymphatic: No Adenopathy Results Lab Laboratory Tests 10/15/18 21:53 10/16/18 03:10 Assessment/Plan Assessment/Plan Acute on chronic respiratory failure- Hx of mechanical ventilation and tracheostomy -Pt is refusing BiPAP -BiPAP changed to Vapotherm -ABG is this AM is slightly improved however Pneumonia -Continue Rocephin, Azithromycin CHF - Lasix -Monitor Acute on chronic renal failure -Monitor COPDAE -Solumedrol -SVNS Morbid obesity patient states she does not want me to see her. She states she does not trust me because I always talk about her CPAP. I explained I am the only pulmonary/ ICU doctor here and she said she would rather go to . I am going to sign off since pt does not want me to see her. Please call with any questions or concerns. Pt appears to be alert and oriented and talking in full sentences. ESTRELLITA PITT DO Oct 16, 2018 04:52
[2018-10-16 04:53] LABS: ABG PCO2 74 MMHG (35-45); ABG PH 7.27 (7.37-7.43); ALLENS TEST YES-POS; INSPIRED O2 35%; PATIENT TEMP 97.5; VENTILATOR NO
--- NOTE | 2018-10-16 05:00 | NUR ---
Dr Arrieta at bedside. Patient verbalized that she does not want to see Dr Arrieta, and if she needs higher care then she "wants to be transferred to [place] to her dr there."
[2018-10-16] MEDS ORDERED: KCL 20 MEQ TAB (K-DUR) PO SCH (06:00)
[2018-10-16] MEDS ORDERED: POTASSIUM CL 10MEQ/50ML IVPB 50 ML IV SCH (06:00)
[2018-10-16] MEDS ORDERED: FUROSEMIDE 40 MG/4 ML INJ (LASIX) IV ONE (06:00)
[2018-10-16] MEDS ORDERED: MAGNESIUM 1 GM/100 ML IVPB 100 ML IV SCH (06:00)
--- NOTE | 2018-10-16 08:03 | Diagnostic Imaging Report ---
Indication: Bilateral infiltrates with congestion. Comparison with 03/13/2016. Findings: There continues to be cardiomegaly. Mild pulmonary venous congestion with bilateral interstitial infiltrates are again present. No consolidated infiltrates have developed. Could not exclude small pleural effusion. IMPRESSION: 1. Stable appearance with continued cardiomegaly and mild chronic pulmonary venous congestive changes. Dictated by: Dictated on workstation # [id number]
--- NOTE | 2018-10-16 08:31 | History & Physicial ---
History of Present Illness History of Present Illness Reason for visit/HPI Patient resident at [facility]. Ration has COPD. Patient short of breath last 2 days. Pulse ox in the 70s with 3 L of nasal oxygen. On 4 L of oxygen patient's pulse ox 194. Patient has a history of being on a ventilator and endotracheal 2. Patient has history of CHF. Patient has lymphedema. Patient has renal insufficiency. Platelet count 105,000. Patient anemic. Patient wants to go up to [facility] in [place]. 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 Date of Admission Oct 15, 2018 at 22:40 Time Seen by a Provider: 08:25 I consulted on this patient on 10/16/18 08:25 Attending Physician Juan Stack DO Admitting Physician Juan Stack DO Consult Allergies and Home Medications Allergies Coded Allergies: risperidone (Verified Allergy, Unknown, 10/16/18) simvastatin (Unverified Adverse Reaction, Unknown, 04/20/14) Home Medications Allopurinol 300 Mg Tablet, 300 MG PO DAILY, (Reported) Budesonide/Formoterol Fumarate 10.2 Gm Hfa.aer.ad, 1 INHALER INH UD, (Reported) Cholecalciferol 1,000 Unit Tab, 1,000 UNIT PO BID, (Reported) Docosahexanoic Acid/Epa 1 Cap Capsule, 1,000 MG PO DAILY, (Reported) Docusate Sodium 100 Mg Cap, 100 MG PO BID, (Reported) Famotidine 20 Mg Tablet, 1 TAB PO UD, (Reported) Fluticasone Propionate 16 Gm Naspr, 1 SPRAY NS BID, (Reported) Fluticasone/Salmeterol 1 Disk Inhp, 1 PUFF IH BID, (Reported) Furosemide 20 Mg Tablet, 20-40 MG PO DAILY PRN for SWELLING, (Reported) TAKES 1 TO 2 (20MG) TABLETS Furosemide 40 Mg Tablet, 40 MG PO DAILY X 3 DAYS, (Reported) ORDERED 5-11-15 40MG DAILY X 3 DAYS FOR EDEMA Gabapentin 100 Mg Capsule, 100 MG PO DAILY PRN for PAIN, (Reported) Garlic 1,000 Mg Capsule, 1,000 MG PO DAILY, (Reported) Hydrocodone Bit/Acetaminophen 1 Tab Tablet, 1 TAB PO Q6H PRN for PAIN, (Reported ) Hydrocodone Bit/Acetaminophen 1 Each Tablet, 1 TAB PO UD, (Reported) Ibuprofen 200 Mg Tablet, 200 MG PO Q8H PRN for PAIN, (Reported) Levothyroxine Sodium 200 Mcg Tablet, 200 MCG PO DAILY, (Reported) Metoprolol Tartrate 25 Mg Tablet, 1 TAB PO UD, (Reported) Montelukast Sodium 10 Mg Tablet, 10 MG PO HS, (Reported) Multivitamin No.44/Vit D3/K 1 Each Capsule, 1 CAP PO DAILY, (Reported) Nitrofurantoin Monohyd/M-Cryst 100 Mg Capsule, 100 MG PO BID Prescribed by: NAINA REID on 07/10/162119 Ondansetron 4 Mg Tab.rapdis, 1 TAB PO UD, (Reported) Triamcinolone Acet 15 Gm Cr, 1 TUBE TD UD, (Reported) Patient Home Medication List Home Medication List Reviewed: No Past Uiwhmlj-Iwrzpr-Ypaguv Hx Patient Social History Employed/Student: retired Alcohol Use: Past History Recreational Drug Use: No Smoking Status: Former Smoker (QUIT SEVERAL YEARS AGO) Type Used: Cigarettes Recent Foreign Travel: No Contact w/other who traveled: No Recent Infectious Disease Expo: No Immunizations Up To Date Tetanus Booster (TDap): More than 5yrs Date of Pneumonia Vaccine: Sep 11, 2016 Seasonal Allergies Seasonal Allergies: Yes Surgeries Yes (RIGHT CARPAL TUNNEL; D&C; PERICARDIAL WINDOW; LEFT THORACOTOMY; I&D'S; RIGHT HAND TENDON REPAIR; HYST/BSO; LEFT EYE SURGERY; TRACH X 2) Cardiac, Eye Surgery, Hysterectomy, Oophorectomy, Orthopedic, Tracheostomy Respiratory Yes (LEFT THORACOTOMY; VENTILATOR WITH TRACH X 2; MULTIORGAN FAILURE WITH PNEUMONIA AND TRACH; CHRONIC RESPIRATORY FAILURE; CHF ) Cardiovascular Yes (PERICARDIAL WINDOW 1993) Atrial Fibrillation, Chronic Edema/Swelling, High Cholesterol, Hypertension Neurological Yes (NEUROPATHY IN FEET) Neuropathy 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 System : No Hx 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 Disorders: Yes (ENDOMETRIAL HYPERPLASIA) Sexually Transmitted Disease: No 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, Menopausal Genitourinary Yes (ON DIALYSIS WHILE SICK WITH PNEUMONIA/MULTIORGAN FAILURE) Renal Failure Gastrointestinal Yes Abdominal Hernia, Gastroesophageal Reflux Musculoskeletal Yes (OA; RIGHT CARPAL TUNNEL AND TENDON REPAIR; GENERALIZED PAIN AND WEAKNESS-- MINIMALLY AMBLATORY/ESSENTIALLY WHEELCHAIR-BOUND; CHRONIC NECK AND BACK PAIN) Arthritis, Chronic Back Pain, Gout Endocrine History of Endocrine Disorders: Yes (MORBID OBESITY) Endocrine Disorders: Hypothyroidsim HEENT History of HEENT Disorders: Yes (HX OF TRACH; LEFT EYE SURGERY) HEENT Disorders: Tinnitis Cancer No Psychosocial History of Psychiatric Problem: Yes Behavioral Health Disorders: Anxiety, Depression Integumentary History of Skin or Integumenta: Yes (LEG ULCERS; VENOUS STASIS ) Blood Transfusions Adverse Reaction to a Blood Tr: No Family Medical History Family Hx: Alzheimer's disease Arthritis Asthma Completed stroke Dementia Diabetes mellitus Glaucoma Hypertension Kidney disease Myocardial infarction Psychosocial problem Respiratory disorder Severe allergy Thyroid disease Visual disorder No Family History of: AIDS Abdominal aortic aneurysm Craven's disease Alcoholism Aphasia Cancer of mouth Cardiovascular disease Cataracts Colon cancer Congenital disease Congenital heart disease Coronary thrombosis Cystic fibrosis Deafness or hearing loss Drug abuse Dysphasia Fibrocystic disease of breast Gastroenteritis Headache disorder Hypercholesterolemia Infertility Neoplasm Not obtainable due to adoption Osteoporosis Parkinson's disease Prostate cancer Seizure disorder Tuberculosis Review of Systems Constitutional: weakness EENTM: no symptoms reported Respiratory: short of breath, wheezing Cardiovascular: no symptoms reported Gastrointestinal: no symptoms reported Genitourinary: no symptoms reported : No Physical Exam Vital Signs Vital Signs - First Documented 10/15/18 10/16/18 21:40 01:12 Temp 98.9 Pulse 91 Resp 22 B/P (MAP) 161/84 (109) Pulse Ox 98 O2 Delivery OxyMask O2 Flow Rate 10.00 FiO2 40 Capillary Refill : Less Than 3 Seconds Height, Weight, BMI Height: 5'4.00" Weight: 246lbs. 2.0oz. 111.034508px; 42.6 BMI Method:Stated General Appearance: No Apparent Distress, WD/WN Eyes: Bilateral Eye Normal Inspection HEENT: Normal ENT Inspection Neck: Full Range of Motion, Normal Inspection Respiratory: No Accessory Muscle Use, No Respiratory Distress, Decreased Breath Sounds Cardiovascular: Regular Rate, Rhythm Gastrointestinal: Non Tender, Soft Extremity: Other (Lymphedema) Assessment/Plan Assessment and Plan Human chronic respiratory failure. Pneumonia. CHF. Morbid obesity. No insufficiency acute and chronic. Anemia. COPD with acute exacerbation. Lymphedema Admission Diagnosis Admission Status: Inpatient Order (span 2 midnights) Reason for Inpatient Admission: COPD with acute exacerbation. Pneumonia. Renal insufficiency. Thrombocytopenia. Clinical Quality Measures DVT/VTE Risk/Contraindication: Risk Factor Score Per Nursin RFS Level Per Nursing on Admit: 4+=Very High JUAN STACK DO Oct 16, 2018 08:30
[2018-10-16] MEDS ORDERED: ENOXAPARIN 40 MG/0.4 ML (LOVENOX) SYR SC SCH ×2 (08:45→09:00)
--- NOTE | 2018-10-16 08:49 | Diagnostic Imaging Report ---
INDICATION: Respiratory distress. EXAMINATION: Portable chest at 2:54 AM. FINDINGS: The heart and mediastinum are normal. The lungs are clear. There are no effusions or pneumothoraces. IMPRESSION: Negative chest. Dictated by: Dictated on workstation # [id number]
[2018-10-16] MEDS ORDERED: GUAI5SYR PO (10:02)
[2018-10-16] MEDS ORDERED: GUAI100L13 PO (10:02)
[2018-10-16] MEDS ORDERED: ALLO100T PO (10:02)
[2018-10-16] MEDS ORDERED: TR025C15 TP (10:20)
[2018-10-16] MEDS ORDERED: ACET250T3 PO (10:20)
[2018-10-16] MEDS ORDERED: CALC500T7 PO (10:20)
[2018-10-16] MEDS ORDERED: LEVO175T5 PO (10:20)
[2018-10-16] MEDS ORDERED: VITS42.53 TP (10:20)
[2018-10-16] MEDS ORDERED: DEXT15DR23 OU (10:20)
[2018-10-16] MEDS ORDERED: LOPE-134 PO (10:20)
[2018-10-16] MEDS ORDERED: ZINC56.7 TOP (10:20)
[2018-10-16] MEDS ORDERED: OMG1KC PO (10:20)
[2018-10-16] MEDS ORDERED: HYDR1SOL EACH EAR (10:20)
[2018-10-16] MEDS ORDERED: TORS100T4 PO (10:20)
[2018-10-16] MEDS ORDERED: IPRA3AMP31 NEB (10:20)
[2018-10-16] MEDS ORDERED: GARL1TAB2 PO (10:20)
[2018-10-16] MEDS ORDERED: PHEN30SP8 MM (10:20)
[2018-10-16] MEDS ORDERED: ACET325T38 PO (10:20)
[2018-10-16] MEDS ORDERED: MENT118G TP (10:20)
[2018-10-16] MEDS ORDERED: MULT-351 PO (10:20)
[2018-10-16] MEDS ORDERED: GLUC100016 PO (10:20)
[2018-10-16] MEDS ORDERED: EUCA170O5 TP (10:20)
[2018-10-16] MEDS ORDERED: CHLO1TAB PO (10:20)
[2018-10-16] MEDS ORDERED: MAG30ORA2 PO (10:20)
[2018-10-16] MEDS ORDERED: GUAI600T43 PO (10:20)
--- NOTE | 2018-10-16 10:27 | NUR ---
UPDATED MED REC WITH PHYSICIAN'S ORDERS FROM [facility].
--- NOTE | 2018-10-16 15:20 | NUR ---
Report called to SHAHRIAR Callahan at [place]
[2018-10-16] MEDS ORDERED: cefTRIAXone FOR IV USE 1,000 MG in WATER (STERILE) FOR INJECTION 10 ML IV SCH (23:00)
--- NOTE | 2018-10-17 07:28 | Discharge Summary ---
Diagnosis/Chief Complaint Date of Admission Oct 15, 2018 at 22:40 Date of Discharge Oct 16, 2018 at 16:25 Discharge Time: 07:25 Discharge Diagnosis Acute on chronic respiratory failure. Pneumonia. COPD with acute exacerbation. CHF. Chronic renal failure. Morbid obesity. Chronic anemia. Lymphedema. Thrombocytopenia Reason Hospital Visit Patient resident at [facility]. Ration has COPD. Patient short of breath last 2 days. Pulse ox in the 70s with 3 L of nasal oxygen. On 4 L of oxygen patient's pulse ox 194. Patient has a history of being on a ventilator and endotracheal 2. Patient has history of CHF. Patient has lymphedema. Patient has renal insufficiency. Platelet count 105,000. Patient anemic. Patient wants to go up to [facility] in [place]. 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 Discharge Summary Consultations Pulmonology Discharge Physical Examination Allergies: Coded Allergies: risperidone (Verified Allergy, Unknown, 10/16/18) simvastatin (Unverified Adverse Reaction, Unknown, 04/20/14) Vitals & I&Os Vital Signs Date Time Temp Pulse Resp B/P (MAP) Pulse Ox O2 Delivery O2 Flow Rate FiO2 10/16/18 16:00 92 Nasal Cannula 4.00 10/16/18 16:00 90 20 138/78 (98) 10/16/18 12:00 97.2 10/16/18 03:45 35 Hospital Course Patient did improve some. Patient did not want to stay in [facility]. I first tried [facility]. Patient eventually went to [facility] in [place]. This was her decision Labs (last 24 hrs) Laboratory Tests 10/15/18 21:53: White Blood Count 7.6, Red Blood Count 3.67L, Hemoglobin 10.3L, Hematocrit 38, Mean Corpuscular Volume 104H, Mean Corpuscular Hemoglobin 28, Mean Corpuscular Hemoglobin Concent 27L, Red Cell Distribution Width 15.5H, Platelet Count 105L, Mean Platelet Volume 10.6H, Neutrophils (%) (Auto) 91H, Lymphocytes (%) (Auto) 4L, Monocytes (%) (Auto) 4, Eosinophils (%) (Auto) 2, Basophils (%) (Auto) 0, Neutrophils # (Auto) 6.9, Lymphocytes # (Auto) 0.3L, Monocytes # (Auto) 0.3, Eosinophils # (Auto) 0.1, Basophils # (Auto) 0.0, Neutrophils % (Manual) 91, Lymphocytes % (Manual) 3, Monocytes % (Manual) 5, Eosinophils % (Manual) 0, Basophils % (Manual) 0, Band Neutrophils 1, Macrocytosis SLIGHT, Prothrombin Time 14.6, INR Comment 1.1, Activated Partial Thromboplast Time 35, Sodium Level 152H, Potassium Level 4.1, Chloride Level 107, Carbon Dioxide Level 34H, Anion Gap 11, Blood Urea Nitrogen 27H, Creatinine 1.71H, Estimat Glomerular Filtration Rate 30, BUN/Creatinine Ratio 16, Glucose Level 142H, Calcium Level 9.9, Corrected Calcium 9.9, Magnesium Level 2.3, Total Bilirubin 0.3, Aspartate Amino Transf (AST/SGOT) 11, Alanine Aminotransferase (ALT/SGPT) 9, Alkaline Phosphatase 103, Total Creatine Kinase 12L, Creatine Kinase MB 0.8, Troponin I < 0.028, B-Type Natriuretic Peptide 364.6H, Total Protein 8.3H, Albumin 4.0 10/15/18 22:01: Lactic Acid Level 0.53 10/15/18 22:24: Blood Gas Puncture Site RIGHT RADIAL, Blood Gas Patient Temperature 98.9, Arterial Blood pH 7.23*L, Arterial Blood Partial Pressure CO2 84*H, Arterial Blood Partial Pressure O2 92, Arterial Blood HCO3 34H, Arterial Blood Total CO2 36.7H, Arterial Blood Oxygen Saturation 96, Arterial Blood Base Excess 6.9H, Clif Test YES-POS, Blood Gas Ventilator Setting NO, Blood Gas Inspired Oxygen 6L 10/16/18 00:53: Blood Gas Puncture Site RIGHT RADIAL, Blood Gas Patient Temperature 98.6, Arterial Blood pH 7.23*L, Arterial Blood Partial Pressure CO2 85*H, Arterial Blood Partial Pressure O2 80, Arterial Blood HCO3 34H, Arterial Blood Total CO2 36.3H, Arterial Blood Oxygen Saturation 93L, Arterial Blood Base Excess 6.4H, Clif Test YES-POS, Blood Gas Ventilator Setting NO, Blood Gas Inspired Oxygen 40% 10/16/18 01:00: Urine Color YELLOW, Urine Clarity CLEAR, Urine pH 6, Urine Specific [place] 1.015L, Urine Protein 1+H, Urine Glucose (UA) NEGATIVE, Urine Ketones NEGATIVE, Urine Nitrite NEGATIVE, Urine Bilirubin NEGATIVE, Urine Urobilinogen NORMAL, Urine Leukocyte Esterase NEGATIVE, Urine RBC (Auto) NEGATIVE, Urine RBC NONE, Urine WBC NONE, Urine Squamous Epithelial Cells 10-25H, Urine Crystals NONE, Urine Bacteria NEGATIVE, Urine Casts NONE, Urine Mucus SMALLH, Urine Culture Indicated NO 10/16/18 03:10: White Blood Count 7.7, Red Blood Count 3.21L, Hemoglobin 8.9L, Hematocrit 33L, Mean Corpuscular Volume 104H, Mean Corpuscular Hemoglobin 28, Mean Corpuscular Hemoglobin Concent 27L, Red Cell Distribution Width 15.3H, Platelet Count 95L, Mean Platelet Volume 11.3H, Neutrophils (%) (Auto) 95H, Lymphocytes (%) (Auto) 3L, Monocytes (%) (Auto) 2, Eosinophils (%) (Auto) 1, Basophils (%) (Auto) 0, Neutrophils # (Auto) 7.3, Lymphocytes # (Auto) 0.2L, Monocytes # (Auto) 0.1, Eosinophils # (Auto) 0.0, Basophils # (Auto) 0.0, Sodium Level 148H, Potassium Level 3.9, Chloride Level 106, Carbon Dioxide Level 30, Anion Gap 12, Blood Urea Nitrogen 28H, Creatinine 1.64H, Estimat Glomerular Filtration Rate 31, BUN/ Creatinine Ratio 17, Glucose Level 174H, Calcium Level 9.4, Corrected Calcium 9.7, Phosphorus Level 4.1, Magnesium Level 2.1, Total Bilirubin 0.3, Aspartate Amino Transf (AST/SGOT) 11, Alanine Aminotransferase (ALT/SGPT) 8, Alkaline Phosphatase 91, Total Protein 7.5, Albumin 3.6, Procalcitonin 0.21H 10/16/18 04:40: Blood Gas Puncture Site RIGHT RADIAL, Blood Gas Patient Temperature 97.5, Arterial Blood pH 7.27*L, Arterial Blood Partial Pressure CO2 74*H, Arterial Blood Partial Pressure O2 72L, Arterial Blood HCO3 33H, Arterial Blood Total CO2 35.7H, Arterial Blood Oxygen Saturation 94, Arterial Blood Base Excess 6.6H , Clif Test YES-POS, Blood Gas Ventilator Setting NO, Blood Gas Inspired Oxygen 35% Microbiology 10/15/18 Blood Culture - Preliminary, Resulted No growth 10/16/18 Gram Stain - Final, Resulted 10/16/18 Sputum Culture, Resulted Pending Laboratory Tests 10/15/18 21:53 10/16/18 03:10 Pending Labs Microbiology Date/Time Source Procedure Growth Status 10/15/18 22:17 Peripheral Rt Ac Blood Culture - Preliminary No growth Resulted 10/15/18 22:01 Peripheral Lt Ac Blood Culture - Preliminary No growth Resulted 10/16/18 04:50 Sputum Expectorated Gram Stain - Final Resulted 10/16/18 04:50 Sputum Expectorated Sputum Culture Pending Resulted 10/15/18 22:59 Nasopharynx Influenza Types A,B Antigen (QUYEN) - Final Complete Laboratory Tests 10/15/18 21:53: White Blood Count 7.6, Red Blood Count 3.67, Hemoglobin 10.3, Hematocrit 38, Mean Corpuscular Volume 104, Mean Corpuscular Hemoglobin 28, Mean Corpuscular Hemoglobin Concent 27, Red Cell Distribution Width 15.5, Platelet Count 105, Mean Platelet Volume 10.6, Neutrophils (%) (Auto) 91, Lymphocytes (%) (Auto) 4, Monocytes (%) (Auto) 4, Eosinophils (%) (Auto) 2, Basophils (%) (Auto) 0, Neutrophils # (Auto) 6.9, Lymphocytes # (Auto) 0.3, Monocytes # (Auto) 0.3, Eosinophils # (Auto) 0.1, Basophils # (Auto) 0.0, Neutrophils % (Manual) 91, Lymphocytes % (Manual) 3, Monocytes % (Manual) 5, Eosinophils % (Manual) 0, Basophils % (Manual) 0, Band Neutrophils 1, Macrocytosis SLIGHT, Prothrombin Time 14.6, INR Comment 1.1, Activated Partial Thromboplast Time 35, Sodium Level 152, Potassium Level 4.1, Chloride Level 107, Carbon Dioxide Level 34, Anion Gap 11, Blood Urea Nitrogen 27, Creatinine 1.71, Estimat Glomerular Filtration Rate 30, BUN/Creatinine Ratio 16, Glucose Level 142, Calcium Level 9.9, Corrected Calcium 9.9, Magnesium Level 2.3, Total Bilirubin 0.3, Aspartate Amino Transf (AST/SGOT) 11, Alanine Aminotransferase (ALT/SGPT) 9, Alkaline Phosphatase 103, Total Creatine Kinase 12, Creatine Kinase MB 0.8, Troponin I < 0.028, B-Type Natriuretic Peptide 364.6, Total Protein 8.3, Albumin 4.0 10/15/18 22:01: Lactic Acid Level 0.53 10/15/18 22:24: Blood Gas Puncture Site RIGHT RADIAL, Blood Gas Patient Temperature 98.9, Arterial Blood pH 7.23, Arterial Blood Partial Pressure CO2 84, Arterial Blood Partial Pressure O2 92, Arterial Blood HCO3 34, Arterial Blood Total CO2 36.7, Arterial Blood Oxygen Saturation 96, Arterial Blood Base Excess 6.9, Clif Test YES-POS, Blood Gas Ventilator Setting NO, Blood Gas Inspired Oxygen 6L 10/16/18 00:53: Blood Gas Puncture Site RIGHT RADIAL, Blood Gas Patient Temperature 98.6, Arterial Blood pH 7.23, Arterial Blood Partial Pressure CO2 85, Arterial Blood Partial Pressure O2 80, Arterial Blood HCO3 34, Arterial Blood Total CO2 36.3, Arterial Blood Oxygen Saturation 93, Arterial Blood Base Excess 6.4, Clif Test YES-POS, Blood Gas Ventilator Setting NO, Blood Gas Inspired Oxygen 40% 10/16/18 01:00: Urine Color YELLOW, Urine Clarity CLEAR, Urine pH 6, Urine Specific [place] 1.015, Urine Protein 1+, Urine Glucose (UA) NEGATIVE, Urine Ketones NEGATIVE, Urine Nitrite NEGATIVE, Urine Bilirubin NEGATIVE, Urine Urobilinogen NORMAL, Urine Leukocyte Esterase NEGATIVE, Urine RBC (Auto) NEGATIVE, Urine RBC NONE, Urine WBC NONE, Urine Squamous Epithelial Cells 10-25, Urine Crystals NONE, Urine Bacteria NEGATIVE, Urine Casts NONE, Urine Mucus SMALL, Urine Culture Indicated NO 10/16/18 03:10: White Blood Count 7.7, Red Blood Count 3.21, Hemoglobin 8.9, Hematocrit 33, Mean Corpuscular Volume 104, Mean Corpuscular Hemoglobin 28, Mean Corpuscular Hemoglobin Concent 27, Red Cell Distribution Width 15.3, Platelet Count 95, Mean Platelet Volume 11.3, Neutrophils (%) (Auto) 95, Lymphocytes (%) (Auto) 3, Monocytes (%) (Auto) 2, Eosinophils (%) (Auto) 1, Basophils (%) (Auto) 0, Neutrophils # (Auto) 7.3, Lymphocytes # (Auto) 0.2, Monocytes # (Auto) 0.1, Eosinophils # (Auto) 0.0, Basophils # (Auto) 0.0, Sodium Level 148, Potassium Level 3.9, Chloride Level 106, Carbon Dioxide Level 30, Anion Gap 12, Blood Urea Nitrogen 28, Creatinine 1.64, Estimat Glomerular Filtration Rate 31, BUN/ Creatinine Ratio 17, Glucose Level 174, Calcium Level 9.4, Corrected Calcium 9.7 , Phosphorus Level 4.1, Magnesium Level 2.1, Total Bilirubin 0.3, Aspartate Amino Transf (AST/SGOT) 11, Alanine Aminotransferase (ALT/SGPT) 8, Alkaline Phosphatase 91, Total Protein 7.5, Albumin 3.6, Procalcitonin 0.21 10/16/18 04:40: Blood Gas Puncture Site RIGHT RADIAL, Blood Gas Patient Temperature 97.5, Arterial Blood pH 7.27, Arterial Blood Partial Pressure CO2 74, Arterial Blood Partial Pressure O2 72, Arterial Blood HCO3 33, Arterial Blood Total CO2 35.7, Arterial Blood Oxygen Saturation 94, Arterial Blood Base Excess 6.6, Clif Test YES-POS, Blood Gas Ventilator Setting NO, Blood Gas Inspired Oxygen 35% Discussion & Recommendations As per patient's request she was transferred to [facility]. 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 TP Q6H PRN Glucosamine (Glucosamine Sulfate 2Kcl) 1,000 Mg Tablet 1,000 Mg PO BID Iprat-Albut 0.5-3(2.5) mg/3 ml (Ipratropium/Albuterol Sulfate) 3 Ml Ampul.neb 3 Ml NEB QID Tylenol (Acetaminophen) 325 Mg Tablet 650 Mg PO Q4H PRN TAKES 2 (325MG) TABLETS Mucinex (Guaifenesin) 600 Mg Tab.er.12h 600 Mg PO Q12H PRN Fish Oil 1,000 mg Capsule ([place] 3 Polyunsat Fatty Acids) 1,000 Mg Cap 1,000 Mg PO DAILY A and D Ointment (Vits A and D/White Pet/Lanolin) 42.5 Gm Oint...g. TP DAILY APPLY TO BLE RED-EDEMA AREA Zinc Oxide 56.7 Gm Oint...g. TOP HS TREAT BLE REDNESS-[place]EAM AREAS, APPLY AFTER TRIAMCINOLONE CREAM Acetazolamide 250 Mg Tablet 250 Mg PO BID Torsemide 100 Mg Tablet 50 Mg PO BID TAKES 1/2 (100MG) TABLET Natural Balance Tears Eye Drop (Dextran 70/Hypromellose) 15 Ml Drops 2 Drops OU Q4H PRN Vicks Vaporub Ointment (Eucalyptus Oil/Menthol/Camphor) 170 Gm Oint...g. TP UD PRN Chlorophyll 20 mg Tablet (Chlorophyllin/Morris) 1 Each Tablet 1 Tab PO BID Hydrogen Peroxide 1 Ml Solution 5 Drops EACH EAR BID PRN Tums (Calcium Carbonate) 200 Mg Tab.chew 400 Mg PO BID PRN TAKES 2 TABLETS Levothyroxine Sodium 175 Mcg Tablet 175 Mcg PO DAILY Imodium A-D (Loperamide HCl) 2 Mg Tablet 2 Mg PO UD PRN MAX OF 4 DOSES IN 24 HOURS Mylanta Suspension (Al Hydrox/Mg Hydrox/Simethicone) 30 Ml Oral.susp 30 Ml PO QID PRN Chloraseptic Max [place] (Phenol/Glycerin) 30 Ml [place] 2 Sprays MM Q6H PRN Triamcinolone Acetonide 0.025% (Triamcinolone Acet) 15 Gm Cr TP HS APPLY TO BLE RED-EDEMA AREAS Garlic 1 Each Tablet 1 Tab PO DAILY Daily Vitamin Formula (Multivitamin) 1 Each Tablet 1 Tab PO DAILY Guaifenesin 100 Mg/5 Ml Liquid 5 Ml PO Q4H PRN Allopurinol 100 Mg Tablet 100 Mg PO DAILY Hydrocodone/Acetaminophen 5/325mg Tablet (Acetaminophen/Hydrocodone Bitart) 1 Each Tablet 1 Tab PO BID Symbicort 160-4.5 Mcg Inhaler (Budesonide/Formoterol Fumarate) 10.2 Gm Hfa.aer.ad 2 Puff INH BID Metoprolol Tartrate 25 Mg Tablet 25 Mg PO BID HOLD FOR SBP<100 OR PULSE <60 Instructions to patient/family Please see electronic discharge instructions given to patient. Clinical Quality Measures DVT/VTE Risk/Contraindication: Risk Factor Score Per Nursin RFS Level Per Nursing on Admit: 4+=Very High AURORA STACK DO Oct 17, 2018 07:28
== END 2018-10-16 16:25 | disposition short-term general hospital (02) | DRG 189 ==
LOC: EDUNIT# 21:38 → ER 21:39 → ICU 22:40
PROVIDERS: ADMIT Family Medicine; ATTEND Family Medicine
DX: J96.20 Acute and chronic respiratory failure, unspecified whether with hypoxia or hypercapnia (principal); J18.9 Pneumonia, unspecified organism; J44.0 Chronic obstructive pulmonary disease with (acute) lower respiratory infection; J44.1 Chronic obstructive pulmonary disease with (acute) exacerbation; N17.9 Acute kidney failure, unspecified; E87.2 Acidosis; E66.01 Morbid (severe) obesity due to excess calories; Z68.41 Body mass index [BMI] 40.0-44.9, adult; I13.0 Hypertensive heart and chronic kidney disease with heart failure and stage 1 through stage 4 chronic kidney disease, or unspecified chronic kidney disease; I50.9 Heart failure, unspecified; N18.9 Chronic kidney disease, unspecified; D64.9 Anemia, unspecified; D69.6 Thrombocytopenia, unspecified; I48.91 Unspecified atrial fibrillation; I89.0 Lymphedema, not elsewhere classified; E78.00 Pure hypercholesterolemia, unspecified; E03.9 Hypothyroidism, unspecified; K21.9 Gastro-esophageal reflux disease without esophagitis; M19.91 Primary osteoarthritis, unspecified site; F41.9 Anxiety disorder, unspecified; F32.9 Major depressive disorder, single episode, unspecified
CPT/HCPCS: 36415; 36600; 71045; 80053; 81000; 82550; 82553; 82805; 83605; 83735; 83880; 84100; 84145; 84484; 85007; 85025; 85027; 85610; 85730; 87040; 87070; 87081; 87205; 87804; 93005; 93041; 94640; 94660

== ENCOUNTER 2019-01-08 11:54 | Outpatient (CLI) | payer MEDICARE ==
[~2019-01-08] VITALS: Ht 162.6 cm; Wt 111.6 kg
[~2019-01-08 11:54] MED LIST changes: +ACET250T3 PO; +ACET325T38 PO; +ALLO100T PO; +CALC500T7 PO; +CHLO1TAB PO; +DEXT15DR23 OU; +EUCA170O5 TP; +GARL1TAB2 PO; +GLUC100016 PO; +GUAI100L13 PO; +GUAI5SYR PO; +GUAI600T43 PO; +HYDR1SOL EACH EAR; +IPRA3AMP31 NEB; +LEVO175T5 PO; +LOPE-134 PO; +MAG30ORA2 PO; +MENT118G TP; +MULT-351 PO; +OMG1KC PO; +PHEN30SP8 MM; +TORS100T4 PO; +TR025C15 TP; +VITS42.53 TP; +ZINC56.7 TOP
[2019-01-08] MEDS ORDERED: HYDROCORTISONE 100 MG/2 ML (Solu-CORTEF) VIAL IV PRN (12:45)
[2019-01-08] MEDS ORDERED: IRON DEXTRAN 1,000 MG/NS 250 ML IVPB IV ONE ×2 (12:45)
[2019-01-08] MEDS ORDERED: diphenhydrAMINE 50 MG/ML INJ (BENADRYL) IV PRN (12:45)
[2019-01-08] MEDS ORDERED: EPINEPHrine INJECTION 1 MG/ML AMP IM PRN (12:45)
[2019-01-08] MEDS ORDERED: NS IV 1000 ML 1,000 ML IV SCH (12:45)
[2019-01-08] MEDS ORDERED: RT-ALBUTEROL SULF 2.5 MG/3 ML PRE-MIX VIAL INH PRN (12:45)
[2019-01-08] MEDS ORDERED: IRON DEXTRAN 25 MG/NS 6.25 ML TOTAL VOLUME IV ONE ×3 (12:45)
[2019-01-08 15:12] VITALS: BP 127/62
== END 2019-01-08 15:10 | disposition home or self-care (01) ==
LOC: SDC 11:54
PROVIDERS: ATTEND Family Medicine
DX: N18.9 Chronic kidney disease, unspecified (principal); D63.1 Anemia in chronic kidney disease
CPT/HCPCS: 96365

== ENCOUNTER 2019-05-14 09:55 | Inpatient (IN) | payer MEDICARE ==
[~2019-05-14] VITALS: Ht 162 cm; Wt 113.6 kg
--- NOTE | 2019-05-14 10:50 | NUR ---
Pt refuses transfer to ED cart. Pt reports she wants to sit in her personal w/c.
--- NOTE | 2019-05-14 10:55 | ED Abdominal Pain ---
General Stated Complaint: VOMITING Source of Information: Patient Exam Limitations: No Limitations History of Present Illness Date Seen by Provider: May 14, 2019 Time Seen by Provider: 10:54 Initial Comments To ER by private vehicle [facility] with nausea since this morning, periumbilical abdominal pain with a firmness to this location that she's noticed her a couple of months. Timing/Duration: 1-2 Days Severity/Quality: Moderate Location: Periumbilical Radiation: No Radiation Activities at Onset: None Associated Symptoms: Nausea/Vomiting Allergies and Home Medications Allergies Coded Allergies: ondansetron (Verified Allergy, Unknown, 05/14/19) risperidone (Verified Allergy, Unknown, 10/16/18) simvastatin (Unverified Adverse Reaction, Unknown, 04/20/14) Home Medications Acetaminophen 325 Mg Tablet, 650 MG PO Q4H PRN for PAIN-MILD, (Reported) TAKES 2 (325MG) TABLETS Acetazolamide 250 Mg Tablet, 250 MG PO BID, (Reported) Allopurinol 100 Mg Tablet, 100 MG PO DAILY, (Reported) Budesonide/Formoterol Fumarate 10.2 Gm Hfa.aer.ad, 2 PUFF INH BID, (Reported) Calcium Carbonate 200 Mg Tab.chew, 400 MG PO BID PRN for ACID REFLUX, (Reported) TAKES 2 TABLETS Chlorophyllin/[place] 1 Each Tablet, 1 TAB PO BID, (Reported) Dextran 70/Hypromellose 15 Ml Drops, 2 DROPS OU Q4H PRN for DRY EYES, (Reported) Eucalyptus Oil/Menthol/Camphor 170 Gm Oint...g., TP UD PRN for CONGESTION, (Reported) Garlic 1 Each Tablet, 1 TAB PO DAILY, (Reported) Glucosamine Sulfate 2Kcl 1,000 Mg Tablet, 1,000 MG PO BID, (Reported) Guaifenesin 100 Mg/5 Ml Liquid, 5 ML PO Q4H PRN for COUGH, (Reported) Guaifenesin 600 Mg Tab.er.12h, 600 MG PO Q12H PRN for CONGESTION, (Reported) Hydrocodone Bit/Acetaminophen 1 Each Tablet, 1 TAB PO BID, (Reported) Hydrogen Peroxide 1 Ml Solution, 5 DROPS EACH EAR BID PRN for CERUMEN IMPACTION, (Reported) Ipratropium/Albuterol Sulfate 3 Ml Ampul.neb, 3 ML NEB QID, (Reported) Levothyroxine Sodium 175 Mcg Tablet, 175 MCG PO DAILY, (Reported) Loperamide HCl 2 Mg Tablet, 2 MG PO UD PRN for LOOSE STOOLS, (Reported) MAX OF 4 DOSES IN 24 HOURS Mag Hydrox/Al Hydrox/Simeth 30 Ml Oral.susp, 30 ML PO QID PRN for INDIGESTION, (Reported) Menthol 118 Ml Gel..ml., TP Q6H PRN for PAIN, (Reported) Metoprolol Tartrate 25 Mg Tablet, 25 MG PO BID, (Reported) HOLD FOR SBP<100 OR PULSE <60 Multivitamin 1 Each Tablet, 1 TAB PO DAILY, (Reported) [place] 3 Polyunsat Fatty Acids 1,000 Mg Cap, 1,000 MG PO DAILY, (Reported) Phenol/Glycerin 30 Ml [place], 2 SPRAYS MM Q6H PRN for SORE THROAT, (Reported) Torsemide 100 Mg Tablet, 50 MG PO BID, (Reported) TAKES 1/2 (100MG) TABLET Triamcinolone Acet 15 Gm Cr, TP HS, (Reported) APPLY TO BLE RED-EDEMA AREAS Vits A and D/White Pet/Lanolin 42.5 Gm Oint...g., TP DAILY, (Reported) APPLY TO BLE RED-EDEMA AREA Zinc Oxide 56.7 Gm Oint...g., TOP HS, (Reported) TREAT BLE REDNESS-EDEAM AREAS, APPLY AFTER TRIAMCINOLONE CREAM Patient Home Medication List Home Medication List Reviewed: Yes Review of Systems Review of Systems Constitutional: see HPI EENTM: No Symptoms Reported Respiratory: No Symptoms Reported Cardiovascular: No Symptoms Reported Gastrointestinal: See HPI, Abdominal Pain, Nausea Genitourinary: No Symptoms Reported Musculoskeletal: no symptoms reported Skin: no symptoms reported Psychiatric/Neurological: No Symptoms Reported Endocrine: No Symptoms Reported Past Nfkbpva-Dzasrn-Xgcpig Hx Patient Social History Type Used: Cigarettes Immunizations Up To Date Tetanus Booster (TDap): More than 5yrs Date of Pneumonia Vaccine: Sep 11, 2016 Seasonal Allergies Seasonal Allergies: Yes Past Medical History Surgeries: Yes Cardiac, Eye Surgery, Hysterectomy, Oophorectomy, Orthopedic, Tracheostomy Respiratory: Yes Asthma, Pneumonia, COPD Cardiac: Yes (PERICARDIAL WINDOW 1993) Atrial Fibrillation, Chronic Edema/Swelling, High Cholesterol, Hypertension Neurological: Yes (NEUROPATHY IN FEET) Neuropathy 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 Disorders: Yes (ENDOMETRIAL HYPERPLASIA) 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, 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 Sexually Transmitted Disease: No Genitourinary: Yes (ON DIALYSIS WHILE SICK WITH PNEUMONIA/MULTIORGAN FAILURE) Renal Failure Gastrointestinal: Yes Abdominal Hernia, Gastroesophageal Reflux Musculoskeletal: Yes Arthritis, Chronic Back Pain, Gout Endocrine: Yes (MORBID OBESITY) Hypothyroidsim HEENT: Yes (HX OF TRACH; LEFT EYE SURGERY) Tinnitis Cancer: No Psychosocial: Yes Anxiety, Depression Integumentary: Yes (LEG ULCERS; VENOUS STASIS ) Adverse Reaction/Blood Tranf: No Family Medical History Alzheimer's disease Arthritis Asthma Completed stroke Dementia Diabetes mellitus Glaucoma Hypertension Kidney disease Myocardial infarction Psychosocial problem Respiratory disorder Severe allergy Thyroid disease Visual disorder No Family History of: AIDS Abdominal aortic aneurysm Jae's disease Alcoholism Aphasia Cancer of mouth Cardiovascular disease Cataracts Colon cancer Congenital disease Congenital heart disease Coronary thrombosis Cystic fibrosis Deafness or hearing loss Drug abuse Dysphasia Fibrocystic disease of breast Gastroenteritis Headache disorder Hypercholesterolemia Infertility Neoplasm Not obtainable due to adoption Osteoporosis Parkinson's disease Prostate cancer Seizure disorder Tuberculosis Physical Exam Vital Signs Vital Signs - First Documented 05/14/19 10:49 Temp 37.1 Pulse 76 Resp 20 B/P (MAP) 149/66 (93) Pulse Ox 96 O2 Delivery Nasal Cannula O2 Flow Rate 3.00 Capillary Refill : Height/Weight/BMI Height: 5'4.00" Weight: 246lbs. 2.0oz. 111.678239ia; 42.6 BMI Method:Stated General Appearance: WD/WN, no apparent distress HEENT: PERRL/EOMI, normal ENT inspection Respiratory: no respiratory distress, no accessory muscle use, rhonchi Gastrointestinal: normal bowel sounds, soft Extremities: normal range of motion, non-tender Neurologic/Psychiatric: alert, normal mood/affect, oriented x 3 Skin: normal color, warm/dry, other (swelling and erythema to bilateral lower extremities) Progress/Results/Core Measures Results/Orders Lab Results Laboratory Tests Test 05/14/19 11:02 Range/Units White Blood Count 9.6 4.3-11.0 10^3/uL Red Blood Count 3.46 L 4.35-5.85 10^6/uL Hemoglobin 9.9 L 11.5-16.0 G/DL Hematocrit 34 L 35-52 % Mean Corpuscular Volume 99 80-99 FL Mean Corpuscular Hemoglobin 29 25-34 PG Mean Corpuscular Hemoglobin Concent 29 L 32-36 G/DL Red Cell Distribution Width 17.1 H 10.0-14.5 % Platelet Count 133 130-400 10^3/uL Mean Platelet Volume 11.2 H 7.4-10.4 FL Neutrophils (%) (Auto) 90 H 42-75 % Lymphocytes (%) (Auto) 6 L 12-44 % Monocytes (%) (Auto) 3 0-12 % Eosinophils (%) (Auto) 1 0-10 % Basophils (%) (Auto) 0 0-10 % Neutrophils # (Auto) 8.6 H 1.8-7.8 X 10^3 Lymphocytes # (Auto) 0.6 L 1.0-4.0 X 10^3 Monocytes # (Auto) 0.3 0.0-1.0 X 10^3 Eosinophils # (Auto) 0.1 0.0-0.3 10^3/uL Basophils # (Auto) 0.0 0.0-0.1 10^3/uL Neutrophils % (Manual) 92 % Lymphocytes % (Manual) 6 % Monocytes % (Manual) 1 % Eosinophils % (Manual) 1 % Hypochromasia SLIGHT Poikilocytosis SLIGHT Basophilic Stippling SLIGHT Anisocytosis SLIGHT Macrocytosis SLIGHT Sodium Level 148 H 135-145 MMOL/L Potassium Level 6.0 H 3.6-5.0 MMOL/L Chloride Level 110 H 98-107 MMOL/L Carbon Dioxide Level 31 21-32 MMOL/L Anion Gap 7 5-14 MMOL/L Blood Urea Nitrogen 54 H 7-18 MG/DL Creatinine 1.92 H 0.60-1.30 MG/DL Estimat Glomerular Filtration Rate 26 BUN/Creatinine Ratio 28 Glucose Level 126 H 70-105 MG/DL Calcium Level 9.2 8.5-10.1 MG/DL Corrected Calcium 9.4 8.5-10.1 MG/DL Total Bilirubin 0.3 0.1-1.0 MG/DL Aspartate Amino Transf (AST/SGOT) 20 5-34 U/L Alanine Aminotransferase (ALT/SGPT) 7 0-55 U/L Alkaline Phosphatase 102 40-136 U/L Total Protein 7.7 6.4-8.2 GM/DL Albumin 3.8 3.2-4.5 GM/DL Lipase 27 8-78 U/L My Orders Orders - ABDULKADIR OVIEDO DRIVER/REFUSE COLLECTOR Cbc With Automated Diff (05/14/19 10:49) Comprehensive Metabolic Panel (05/14/19 10:49) Lipase (05/14/19 10:49) Ua Culture If Indicated (05/14/19 10:49) Ed Iv/Invasive Line Start (05/14/19 10:49) Straight Cath (Urinary) (05/14/19 10:49) Ondansetron Injection (Zofran Injectio (05/14/19 11:00) Ns Iv 500 Ml (Sodium Chloride 0.9%) (05/14/19 11:00) Promethazine Injection (Phenergan Injec (05/14/19 11:00) Ct Abdomen/Pelvis Wo (05/14/19 10:52) Albuterol/Ipra Inhalation Soln (Duoneb I (05/14/19 11:15) Svn Small Volume Nebulizer (05/14/19 11:07) Chest 1 View, Ap/Pa Only (05/14/19 11:07) Manual Differential (05/14/19 11:02) Ekg Tracing (05/14/19 11:47) Sodium Polystyrene Sulfonate (Kayexalate (05/14/19 12:00) Insulin (Regular) Human (Humulin R (Per (05/14/19 16:00) D50w (Emergency) Syringe (Dextrose 50% 5 (05/14/19 12:45) Medications Given in ED Current Medications Medications Dose Ordered Sig/Inderjit Route Start Time Stop Time Status Last Admin Dose Admin Albuterol/ Ipratropium 3 ml ONCE ONCE INH 05/14/19 11:15 05/14/19 11:16 DC 05/14/19 11:28 3 ML Promethazine HCl 6.25 mg ONCE ONCE IVP 05/14/19 11:00 05/14/19 11:01 DC 05/14/19 11:21 6.25 MG Vital Signs/I&O 05/14/19 05/14/19 10:49 10:49 Temp 37.1 Pulse 76 Resp 20 B/P (MAP) 149/66 (93) Pulse Ox 96 96 O2 Delivery Nasal Cannula Nasal Cannula O2 Flow Rate 3.00 3.00 Diagnostic Imaging Diagonstic Imaging: CT Comments NAME: EDDY VALERO MED REC#: [id number] PT STATUS: REG ER : 1950 PHYSICIAN: ABDULKADIR OVIEDO APRN ADMIT DATE: 05/14/19/ER Draft POSDate of Exam:05/14/19 CT ABDOMEN/PELVIS WO PROCEDURE: CT abdomen and pelvis without contrast. TECHNIQUE: Multiple contiguous axial images were obtained through the abdomen and pelvis without the use of intravenous contrast. Auto Exposure Controls were utilized during the CT exam to meet ALARA standards for radiation dose reduction. INDICATION: Abdominal pain and dyspnea. COMPARISON: Comparison is made to study of 07/10/2016. FINDINGS: There is probable tiny calcified granuloma seen within the right lung base. Note is made of coronary artery calcification and mild dependent atelectasis and/or scarring in the lung bases. Unenhanced images of the liver and spleen reveal no focal abnormality or significant change. No gallbladder, pancreatic or adrenal gland abnormality is identified. Horseshoe configuration is again noted without evidence of hydronephrosis. There is mild fluid distention and dilatation of small bowel loops with focally dilated herniated small bowel at the site of previously identified lower abdominal ventral hernia. There is also mild increase in diffuse subcutaneous edema and/or cellulitis. No organized fluid collection is identified. IMPRESSION: Probable developing site of obstruction in the distal small bowel at the site of ventral small bowel herniation. Clinical correlation is recommended. Otherwise, no acute abnormality or significant adverse change is identified. Dictated on workstation # [id number] Dict: 05/14/19 1207 Trans: 05/14/19 1211 [facility] [id number] Interpreted by: NEREYDA CHIU MD Electronically signed by: Departure Communication (Admissions) Time/Spoke to Admitting Phy: 12:[address] Stack, we will admit, consult surgery. I'll hold off on the K ayexalate given the bowel obstruction. We'll instead use insulin and dextrose to temporarily reduce the potassium. 16 Azeri nasogastric tube inserted left nostril by me, inserted until 150 cc of greenish material aspirated. Impression Primary Impression: Small bowel obstruction Additional Impression: Umbilical hernia Qualified Codes: K42.0 - Umbilical hernia with obstruction, without gangrene Disposition: ADMITTED INPATIENT Condition: Stable Admissions Decision to Admit Reason: Admit from ER (General) Decision to Admit/Date: May 14, 2019 Time/Decision to Admit Time: 12:26 Departure-Patient Inst. Referrals: AURORA STACK DO (PCP/Family) Primary Care Physician ABDULKADIR OVIEDO APRN May 14, 2019 10:55 POS
[2019-05-14] MEDS ORDERED: ONDANSETRON 4 MG/2 ML (SDV) Z0FRAN IVP ONE (11:00)
[2019-05-14] MEDS ORDERED: PROMETHAZINE INJ 25 MG/ML (PHENERGAN) AMP IVP ONE (11:00)
[2019-05-14] MEDS ORDERED: NS IV 500 ML 500 ML IV SCH (11:00)
--- NOTE | 2019-05-14 11:00 | NUR ---
See current list for medications.
[2019-05-14 11:13] LABS: BASOPHILS % (AUTO) 0 % (0-10); EOSINOPHILS # (AUTO) 0.1 10^3/uL (0.0-0.3); EOSINOPHILS % (AUTO) 1 % (0-10); HEMATOCRIT 34 % (35-52); HEMOGLOBIN 9.9 G/DL (11.5-16.0); LYMPHOCYTES # (AUTO) 0.6 X 10^3 (1.0-4.0); LYMPHOCYTES % (AUTO) 6 % (12-44); MEAN CORPUSCULAR HEMOGLOBIN 29 PG (25-34); MEAN CORPUSCULAR HGB CONC 29 G/DL (32-36); MEAN CORPUSCULAR VOLUME 99 FL (80-99); MEAN PLATELET VOLUME 11.2 FL (7.4-10.4); MONOCYTES # (AUTO) 0.3 X 10^3 (0.0-1.0); MONOCYTES % (AUTO) 3 % (0-12); NEUTROPHILS # (AUTO) 8.6 X 10^3 (1.8-7.8); NEUTROPHILS % (AUTO) 90 % (42-75); PLATELET COUNT 133 10^3/uL (130-400); RED CELL DISTRIBUTION WIDTH 17.1 % (10.0-14.5); WHITE BLOOD COUNT 9.6 10^3/uL (4.3-11.0)
[2019-05-14] MEDS ORDERED: RT-ALBUTEROL/IPRATROPIUM 3 ML (DUONEB) VIAL INH ONE (11:15)
[2019-05-14 11:35] LABS: ALBUMIN 3.8 GM/DL (3.2-4.5); BILIRUBIN,TOTAL 0.3 MG/DL (0.1-1.0); CALCIUM 9.2 MG/DL (8.5-10.1); CREATININE SERUM 1.92 MG/DL (0.60-1.30); TOTAL PROTEIN 7.7 GM/DL (6.4-8.2)
[2019-05-14 11:45] LABS: EOSINOPHILS % (MANUAL) 1 %; LYMPHOCYTES % (MANUAL) 6 %; MONOCYTES % (MANUAL) 1 %; NEUTROPHILS % (MANUAL) 92 %
[2019-05-14 11:46] LABS: ANISOCYTOSIS SLIGHT; HYPOCHROMASIA SLIGHT; POIKILOCYTOSIS SLIGHT
[2019-05-14] MEDS ORDERED: SOD POLYSTERENE 15 GM/60 ML (KAYEXALATE) UNIT DOSE PO ONE (12:00)
--- NOTE | 2019-05-14 12:03 | NUR ---
Provided support to the pt, who said she was feeling anxious, nauseous and experiencing pain in abdomen 03/04. 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
--- NOTE | 2019-05-14 12:11 | Diagnostic Imaging Report ---
PROCEDURE: CT abdomen and pelvis without contrast. TECHNIQUE: Multiple contiguous axial images were obtained through the abdomen and pelvis without the use of intravenous contrast. Auto Exposure Controls were utilized during the CT exam to meet ALARA standards for radiation dose reduction. INDICATION: Abdominal pain and dyspnea. COMPARISON: Comparison is made to study of 07/10/2016. FINDINGS: There is probable tiny calcified granuloma seen within the right lung base. Note is made of coronary artery calcification and mild dependent atelectasis and/or scarring in the lung bases. Unenhanced images of the liver and spleen reveal no focal abnormality or significant change. No gallbladder, pancreatic or adrenal gland abnormality is identified. Horseshoe configuration is again noted without evidence of hydronephrosis. There is mild fluid distention and dilatation of small bowel loops with focally dilated herniated small bowel at the site of previously identified lower abdominal ventral hernia. There is also mild increase in diffuse subcutaneous edema and/or cellulitis. No organized fluid collection is identified. IMPRESSION: Probable developing site of obstruction in the distal small bowel at the site of ventral small bowel herniation. Clinical correlation is recommended. Otherwise, no acute abnormality or significant adverse change is identified. Dictated by: Dictated on workstation # [id number]
--- NOTE | 2019-05-14 12:23 | Diagnostic Imaging Report ---
INDICATION: Nausea, vomiting. COMPARISON: October 16, 2018. TECHNIQUE: Single frontal radiograph of the chest dated May 14, 2019. FINDINGS: Surgical clips are seen overlying the left lower neck/upper chest, stable from the prior exam. The cardiac silhouette is enlarged, but stable. No significant pulmonary vascular congestion. The lungs are clear of focal pulmonary opacity. No pleural effusion. No pneumothorax. No acute osseous abnormality. IMPRESSION: Stable examination demonstrating cardiomegaly without overt congestive heart failure or additional superimposed acute cardiopulmonary abnormality. Dictated by: Dictated on workstation # [id number]
[2019-05-14] MEDS ORDERED: DEXTROSE 50% 50 ML (IMS) SYR IV ONE (12:45)
--- NOTE | 2019-05-14 13:15 | History & Physical ---
History of Present Illness History of Present Illness Reason for visit/HPI CC: Abdominal Pain HPI: 68 yo female presents to the ER this afternoon with abdominal pain. Stated that the pain became more intense last night. Pain is located around the umbilicus but does state that it travels to her back and describes it as a sharp pain. Increase in Intraabdominal pressure makes the pain worse. Patient states that she has had nausea and vomiting and did pass gas this morning. Date of Admission May 14, 2019 at 12:54 Date Seen by a Provider: May 14, 2019 Time Seen by a Provider: 13:23 I consulted on this patient on 05/14/19 13:10 Attending Physician Juan Carrera DO Admitting Physician Juan Carrera DO Consult Allergies and Home Medications Allergies Coded Allergies: ondansetron (Verified Allergy, Unknown, 05/14/19) risperidone (Verified Allergy, Unknown, 10/16/18) simvastatin (Unverified Adverse Reaction, Unknown, 04/20/14) Home Medications Acetaminophen 325 Mg Tablet, 650 MG PO Q4H PRN for PAIN-MILD, (Reported) TAKES 2 (325MG) TABLETS Acetazolamide 250 Mg Tablet, 250 MG PO BID, (Reported) Allopurinol 100 Mg Tablet, 100 MG PO DAILY, (Reported) Budesonide/Formoterol Fumarate 10.2 Gm Hfa.aer.ad, 2 PUFF INH BID, (Reported) Calcium Carbonate 200 Mg Tab.chew, 400 MG PO BID PRN for ACID REFLUX, (Reported) TAKES 2 TABLETS Chlorophyllin/[place] 1 Each Tablet, 1 TAB PO BID, (Reported) Dextran 70/Hypromellose 15 Ml Drops, 2 DROPS OU Q4H PRN for DRY EYES, (Reported) Eucalyptus Oil/Menthol/Camphor 170 Gm Oint...g., TP UD PRN for CONGESTION, (Reported) Garlic 1 Each Tablet, 1 TAB PO DAILY, (Reported) Glucosamine Sulfate 2Kcl 1,000 Mg Tablet, 1,000 MG PO BID, (Reported) Guaifenesin 100 Mg/5 Ml Liquid, 5 ML PO Q4H PRN for COUGH, (Reported) Guaifenesin 600 Mg Tab.er.12h, 600 MG PO Q12H PRN for CONGESTION, (Reported) Hydrocodone Bit/Acetaminophen 1 Each Tablet, 1 TAB PO BID, (Reported) Hydrogen Peroxide 1 Ml Solution, 5 DROPS EACH EAR BID PRN for CERUMEN IMPACTION, (Reported) Ipratropium/Albuterol Sulfate 3 Ml Ampul.neb, 3 ML NEB QID, (Reported) Levothyroxine Sodium 175 Mcg Tablet, 175 MCG PO DAILY, (Reported) Loperamide HCl 2 Mg Tablet, 2 MG PO UD PRN for LOOSE STOOLS, (Reported) MAX OF 4 DOSES IN 24 HOURS Mag Hydrox/Al Hydrox/Simeth 30 Ml Oral.susp, 30 ML PO QID PRN for INDIGESTION, (Reported) Menthol 118 Ml Gel..ml., TP Q6H PRN for PAIN, (Reported) Metoprolol Tartrate 25 Mg Tablet, 25 MG PO BID, (Reported) HOLD FOR SBP<100 OR PULSE <60 Multivitamin 1 Each Tablet, 1 TAB PO DAILY, (Reported) [place] 3 Polyunsat Fatty Acids 1,000 Mg Cap, 1,000 MG PO DAILY, (Reported) Phenol/Glycerin 30 Ml [place], 2 SPRAYS MM Q6H PRN for SORE THROAT, (Reported) Torsemide 100 Mg Tablet, 50 MG PO BID, (Reported) TAKES 1/2 (100MG) TABLET Triamcinolone Acet 15 Gm Cr, TP HS, (Reported) APPLY TO BLE RED-EDEMA AREAS Vits A and D/White Pet/Lanolin 42.5 Gm Oint...g., TP DAILY, (Reported) APPLY TO BLE RED-EDEMA AREA Zinc Oxide 56.7 Gm Oint...g., TOP HS, (Reported) TREAT BLE REDNESS-[place]EAM AREAS, APPLY AFTER TRIAMCINOLONE CREAM Patient Home Medication List Home Medication List Reviewed: Yes Past Thoixdl-Lglaax-Orcjes Hx Patient Social History Alcohol Use: Denies Use Recreational Drug Use: No Smoking Status: Former Smoker Type Used: Cigarettes Recent Foreign Travel: No Contact w/other who traveled: No Recent Hopitalizations: Yes Recent Infectious Disease Expo: No Immunizations Up To Date Tetanus Booster (TDap): More than 5yrs Date of Pneumonia Vaccine: Sep 11, 2016 Seasonal Allergies Seasonal Allergies: Yes Surgeries Yes Cardiac, Eye Surgery, Hysterectomy, Oophorectomy, Orthopedic, Tracheostomy Respiratory Yes Cardiovascular Yes (PERICARDIAL WINDOW 1993) Atrial Fibrillation, Chronic Edema/Swelling, High Cholesterol, Hypertension Neurological Yes (NEUROPATHY IN FEET) Neuropathy 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 System Hx 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 Disorders: Yes (ENDOMETRIAL HYPERPLASIA) Sexually 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, 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 Genitourinary Yes (ON DIALYSIS WHILE SICK WITH PNEUMONIA/MULTIORGAN FAILURE) Renal Failure Gastrointestinal Yes Abdominal Hernia, Gastroesophageal Reflux Musculoskeletal Yes Arthritis, Chronic Back Pain, Gout Endocrine History of Endocrine Disorders: Yes (MORBID OBESITY) Endocrine Disorders: Hypothyroidsim HEENT History of HEENT Disorders: Yes (HX OF TRACH; LEFT EYE SURGERY) HEENT Disorders: Tinnitis Cancer No Psychosocial History of Psychiatric Problem: Yes Behavioral Health Disorders: Anxiety, Depression Integumentary History of Skin or Integumenta: Yes (LEG ULCERS; VENOUS STASIS ) Blood Transfusions History of Blood Disorders: Yes (ANEMIA) Adverse Reaction to a Blood Tr: No Family Medical History Family Hx: Alzheimer's disease Arthritis Asthma Completed stroke Dementia Diabetes mellitus Glaucoma Hypertension Kidney disease Myocardial infarction Psychosocial problem Respiratory disorder Severe allergy Thyroid disease Visual disorder No Family History of: AIDS Abdominal aortic aneurysm [place]'s disease Alcoholism Aphasia Cancer of mouth Cardiovascular disease Cataracts Colon cancer Congenital disease Congenital heart disease Coronary thrombosis Cystic fibrosis Deafness or hearing loss Drug abuse Dysphasia Fibrocystic disease of breast Gastroenteritis Headache disorder Hypercholesterolemia Infertility Neoplasm Not obtainable due to adoption Osteoporosis Parkinson's disease Prostate cancer Seizure disorder Tuberculosis Review of Systems Constitutional: No chills, No fever Respiratory: cough, dyspnea on exertion, short of breath Cardiovascular: No chest pain Gastrointestinal: abdominal pain (umbilicus), nausea, vomiting Physical Exam Vital Signs Vital Signs - First Documented 05/14/19 10:49 Temp 37.1 Pulse 76 Resp 20 B/P (MAP) 149/66 (93) Pulse Ox 96 O2 Delivery Nasal Cannula O2 Flow Rate 3.00 Capillary Refill : Less Than 3 Seconds Height, Weight, BMI Height: 5'4.00" Weight: 246lbs. 2.0oz. 111.964339gx; 40.00 BMI Method:Stated General Appearance: Mild Distress, Obese Eyes: Bilateral Eye Normal Inspection Neck: Normal Inspection, Non Tender Respiratory: Other (Increased Respiratory effort, O2 stat decrease with exertion) Cardiovascular: Regular Rate, Rhythm Gastrointestinal: Hernia (Umbilical), Tenderness Neurologic/Psychiatric: Alert, Oriented x3, Normal Mood/Affect Assessment/Plan Assessment and Plan Incarcerated Umbilical hernia Hypoxic CKD Hyperkalemia Possible Small Bowel Obstruction Consult Surgery for Hernia Monitor Electrolytes and Pain Monitor Vitals Admission Diagnosis Admission Status: Inpatient Order (span 2 midnights) Reason for Inpatient Admission: Incarcerated Hernia Hypoxic CKD Supervisory-Addendum Brief Verification & Attestation Participated in pt care: other (BOBBY Perez with Dr. Carrera) Personally performed: other (BOBBY Perez with Dr. Carrera) Care discussed with: other (BOBBY Perez with Dr. Carrera) Procedures: n/a BOBBY Perez with Dr. Debi PEREZ,BRANDI MED STUDEN May 14, 2019 13:15 POS
[2019-05-14] MEDS ORDERED: fentaNYL INJECTION 100 MCG/2 ML AMP IVP PRN (13:45)
[2019-05-14 14:29] VITALS: BP 170/79
--- NOTE | 2019-05-14 14:36 | Diagnostic Imaging Report ---
INDICATION: NG tube placement. EXAMINATION: Frontal chest obtained at 01:57 p.m. COMPARISON: Comparison is made with 05/14/2019 at 11:56 a.m. FINDINGS: There is unchanged cardiomegaly. There appears to be worsening central vascular congestion. There is no pneumothorax or gross pleural fluid. There is an NG tube seen with tip overlying mid stomach. IMPRESSION: Cardiomegaly with mild worsening central vascular congestion. NG tube is seen with tip overlying the mid stomach. Dictated by: Dictated on workstation # [id number]
[2019-05-14] MEDS: fentaNYL INJECTION 100 MCG/2 ML AMP IV PRN (14:49)
--- NOTE | 2019-05-14 15:20 | NUR ---
REPORT TAKEN FROM SHAHRIAR HUNTLEY FROM ICU AT THIS TIME.
--- NOTE | 2019-05-14 15:33 | NUR ---
Report given to Kadie BESS at 1520. Pt transferred to floor via wheelchair with pt portable oxygen. Pt had cell phone and wallet in hand upon tx to room 432. pt transferred at 1522.
[2019-05-14] MEDS: LACTATED RINGERS 1,000 ML IV SCH (15:40)
[2019-05-14 15:55] VITALS: BP 181/71
[2019-05-14] MEDS ORDERED: inSUlin (REGULAR) HUMAN 1 UNIT/0.01 ML (CHARGE PER UNIT) SC SCH (16:00)
[2019-05-14] MEDS ORDERED: PANT40TA3 PO (16:15)
[2019-05-14] MEDS ORDERED: NYST15PO2 TOP (16:15)
[2019-05-14] MEDS ORDERED: TORS20TA3 PO (16:15)
[2019-05-14] MEDS ORDERED: CHOL20003 PO (16:15)
[2019-05-14] MEDS ORDERED: GARL10002 PO (16:21)
[2019-05-14] MEDS ORDERED: ZINC113C8 TP (16:24)
--- NOTE | 2019-05-14 16:24 | NUR ---
UPDATED MED REC WITH PHYSICIAN'S ORDERS FROM [facility].
--- NOTE | 2019-05-14 18:10 | History & Physical ---
History of Present Illness History of Present Illness Reason for visit/HPI Patient resident of a half-way via [place]. I received a call from nurse at the half-way that patient is vomiting up bilious material. Patient has a mass by the umbilicus. Patient sent out to the emergency room. Patient had a CAT scan of abdomen showing incarcerated hernia. Patient has a history of COPD and renal insufficiency. Patient has hyperkalemia and now. History of hypertension now. Patient has COPD. Patient has a nasogastric tube Date of Admission May 14, 2019 at 12:54 Time Seen by a Provider: 18:05 I consulted on this patient on 05/14/19 18:05 Attending Physician Juan Stack DO Admitting Physician Juan Stack DO Consult Allergies and Home Medications Allergies Coded Allergies: ondansetron (Verified Allergy, Unknown, 05/14/19) risperidone (Verified Allergy, Unknown, 10/16/18) simvastatin (Unverified Adverse Reaction, Unknown, 04/20/14) Home Medications Acetaminophen 325 Mg Tablet, 650 MG PO Q4H PRN for PAIN-MILD, (Reported) TAKES 2 (325MG) TABLETS Acetazolamide 250 Mg Tablet, 250 MG PO DAILY, (Reported) Allopurinol 100 Mg Tablet, 100 MG PO DAILY, (Reported) Budesonide/Formoterol Fumarate 10.2 Gm Hfa.aer.ad, 2 PUFF INH BID, (Reported) Chlorophyllin/[place] 1 Each Tablet, 1 TAB PO BID, (Reported) Cholecalciferol (Vitamin D3) 2,000 Unit Capsule, 2,000 UNIT PO DAILY, (Reported) Dextran 70/Hypromellose 15 Ml Drops, 2 DROPS OU Q4H PRN for DRY EYES, (Reported) Garlic 1,000 Mg Capsule, 1,000 MG PO DAILY, (Reported) Glucosamine Sulfate 2Kcl 1,000 Mg Tablet, 1,000 MG PO BID, (Reported) Guaifenesin 600 Mg Tab.er.12h, 600 MG PO Q12H PRN for CONGESTION, (Reported) Hydrocodone Bit/Acetaminophen 1 Each Tablet, 1 TAB PO BID, (Reported) Ipratropium/Albuterol Sulfate 3 Ml Ampul.neb, 3 ML NEB QID, (Reported) Levothyroxine Sodium 175 Mcg Tablet, 175 MCG PO DAILY, (Reported) Mag Hydrox/Al Hydrox/Simeth 30 Ml Oral.susp, 30 ML PO UD PRN for INDIGESTION, (Reported) Metoprolol Tartrate 25 Mg Tablet, 25 MG PO BID, (Reported) HOLD FOR SBP<100, DBP <50, OR PULSE <60 Multivitamin 1 Each Tablet, 1 TAB PO DAILY, (Reported) Nystatin 15 Gm Powder, TOP BID PRN for IRRITATION, (Reported) [place] 3 Polyunsat Fatty Acids 1,000 Mg Cap, 1,000 MG PO DAILY, (Reported) Pantoprazole Sodium 40 Mg Tablet.dr, 40 MG PO DAILY, (Reported) Torsemide 20 Mg Tablet, 40 MG PO DAILY, (Reported) TAKES 2 TABLETS (40MG) TABLETS Zinc Oxide 113 Gm Cream..g., TP TID, (Reported) Patient Home Medication List Home Medication List Reviewed: Yes Past Ajnpglo-Lxhplx-Ixdedq Hx Past Med/Social Hx: Reviewed Nursing Past Med/Soc Hx Patient Social History Alcohol Use: Denies Use Recreational Drug Use: No Smoking Status: Former Smoker Type Used: Cigarettes Recent Foreign Travel: No Contact w/other who traveled: No Recent Hopitalizations: Yes Recent Infectious Disease Expo: No Immunizations Up To Date Tetanus Booster (TDap): More than 5yrs Date of Pneumonia Vaccine: Jul 17, 2018 Date of Influenza Vaccine: Mar 10, 2019 Seasonal Allergies Seasonal Allergies: Yes Past Medical History Surgeries: Cardiac, Eye Surgery, Hysterectomy, Oophorectomy, Orthopedic, Trach eostomy Cardiac: Atrial Fibrillation, Chronic Edema/Swelling, High Cholesterol, Hypertension Neurological: Neuropathy 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: Yes (ENDOMETRIAL HYPERPLASIA) Sexually Transmitted Disease: No Hysterectomy, Menopausal Genitourinary: Renal Failure Gastrointestinal: Abdominal Hernia, Gastroesophageal Reflux Musculoskeletal: Arthritis, Chronic Back Pain, Gout Endocrine: Hypothyroidsim HEENT: Tinnitis Psychosocial: Anxiety, Depression History of Blood Disorders: Yes (ANEMIA) Adverse Reaction to Blood Muller: No Family History Alzheimer's disease Arthritis Asthma Completed stroke Dementia Diabetes mellitus Glaucoma Hypertension Kidney disease Myocardial infarction Psychosocial problem Respiratory disorder Severe allergy Thyroid disease Visual disorder No Family History of: AIDS Abdominal aortic aneurysm [place]'s disease Alcoholism Aphasia Cancer of mouth Cardiovascular disease Cataracts Colon cancer Congenital disease Congenital heart disease Coronary thrombosis Cystic fibrosis Deafness or hearing loss Drug abuse Dysphasia Fibrocystic disease of breast Gastroenteritis Headache disorder Hypercholesterolemia Infertility Neoplasm Not obtainable due to adoption Osteoporosis Parkinson's disease Prostate cancer Seizure disorder Tuberculosis Review of Systems Constitutional: weakness EENTM: no symptoms reported Respiratory: dyspnea on exertion Cardiovascular: edema Gastrointestinal: abdominal pain, other (Small bowel obstruction) Physical Exam Vital Signs Vital Signs - First Documented 05/14/19 10:49 Temp 37.1 Pulse 76 Resp 20 B/P (MAP) 149/66 (93) Pulse Ox 96 O2 Delivery Nasal Cannula O2 Flow Rate 3.00 Capillary Refill : Less Than 3 Seconds Height, Weight, BMI Height: 5'4.00" Weight: 246lbs. 2.0oz. [id number]; 40.77 BMI Method:Stated General Appearance: Obese, Other (Abdominal pain) Eyes: Bilateral Eye Normal Inspection HEENT: Normal ENT Inspection Neck: Full Range of Motion, Normal Inspection Respiratory: No Accessory Muscle Use, No Respiratory Distress, Decreased Breath Sounds Cardiovascular: No Murmur Gastrointestinal: Tenderness, Other (Pain around umbilicus due to on umbilical hernia) Assessment/Plan Assessment and Plan Small bowel obstruction. Incarcerated umbilical hernia. COPD. Renal insufficiency. Hyperkalemia. Hypertension Admission Diagnosis Admission Status: Inpatient Order (span 2 midnights) Reason for Inpatient Admission: Small bowel obstruction. Incarcerated umbilical hernia. COPD. Hypertension Clinical Quality Measures DVT/VTE Risk/Contraindication: Risk Factor Score Per Nursin RFS Level Per Nursing on Admit: 4+=Very High Contraindications-Mechi: Other *list below* Other: MAY NEED SURGERY PER DR. STACK / RUSTY LEAL AT THIS TIME JUAN STACK DO May 14, 2019 18:10 POS
[2019-05-14 18:26] LABS: CALCIUM 9.1 MG/DL (8.5-10.1); CREATININE SERUM 1.72 MG/DL (0.60-1.30); POTASSIUM 4.8 MMOL/L (3.6-5.0)
[2019-05-14] MEDS: meTOprolol 5 MG/5 ML (LOPRESSOR) VIAL IV SCH (18:30)
--- NOTE | 2019-05-14 19:03 | Consultation - Surgery ---
[facility] 05/14/19 1903: History of Present Illness History of Present Illness Patient Consulted On(evelyn/time) 05/14/19 18:57 Date Seen by Provider: May 14, 2019 Time Seen by Provider: 18:57 Reason for Visit: Hernia and small bowel obstruction History of Present Illness C/C: Abdominal Pain Jennifer is a 68 y/o female that presented for abdominal pain. General surgery was consulted due to abdominal pain and CT findings. Patient has an anterior abdominal hernia that she states has been there for a long time but she is not sure for how long. It was never painful until recently. She states the pain is 10/10 and it is more an intermittent dull pain that goes into a shooting pain. Changing positions help make it better. She has had N/V yesterday and the feeling of F/C. Imaging showed a probable site of obstruction in the distal small bowel at the site of ventral small bowel herniation. Allergies and Home Medications Allergies Coded Allergies: ondansetron (Verified Allergy, Unknown, 05/14/19) risperidone (Verified Allergy, Unknown, 10/16/18) simvastatin (Unverified Adverse Reaction, Unknown, 04/20/14) Home Medications Acetaminophen 325 Mg Tablet, 650 MG PO Q4H PRN for PAIN-MILD, (Reported) TAKES 2 (325MG) TABLETS Acetazolamide 250 Mg Tablet, 250 MG PO DAILY, (Reported) Allopurinol 100 Mg Tablet, 100 MG PO DAILY, (Reported) Budesonide/Formoterol Fumarate 10.2 Gm Hfa.aer.ad, 2 PUFF INH BID, (Reported) Chlorophyllin/[place] 1 Each Tablet, 1 TAB PO BID, (Reported) Cholecalciferol (Vitamin D3) 2,000 Unit Capsule, 2,000 UNIT PO DAILY, (Reported) Dextran 70/Hypromellose 15 Ml Drops, 2 DROPS OU Q4H PRN for DRY EYES, (Reported) Garlic 1,000 Mg Capsule, 1,000 MG PO DAILY, (Reported) Glucosamine Sulfate 2Kcl 1,000 Mg Tablet, 1,000 MG PO BID, (Reported) Guaifenesin 600 Mg Tab.er.12h, 600 MG PO Q12H PRN for CONGESTION, (Reported) Hydrocodone Bit/Acetaminophen 1 Each Tablet, 1 TAB PO BID, (Reported) Ipratropium/Albuterol Sulfate 3 Ml Ampul.neb, 3 ML NEB QID, (Reported) Levothyroxine Sodium 175 Mcg Tablet, 175 MCG PO DAILY, (Reported) Mag Hydrox/Al Hydrox/[place]eth 30 Ml Oral.susp, 30 ML PO UD PRN for INDIGESTION, (Reported) Metoprolol Tartrate 25 Mg Tablet, 25 MG PO BID, (Reported) HOLD FOR SBP<100, DBP <50, OR PULSE <60 Multivitamin 1 Each Tablet, 1 TAB PO DAILY, (Reported) Nystatin 15 Gm Powder, TOP BID PRN for IRRITATION, (Reported) [place] 3 Polyunsat Fatty Acids 1,000 Mg Cap, 1,000 MG PO DAILY, (Reported) Pantoprazole Sodium 40 Mg Tablet.dr, 40 MG PO DAILY, (Reported) Torsemide 20 Mg Tablet, 40 MG PO DAILY, (Reported) TAKES 2 TABLETS (40MG) TABLETS Zinc Oxide 113 Gm Cream..g., TP TID, (Reported) Past Rmruztt-Leqyjy-Cllgwo Hx Patient Social History Alcohol Use: Denies Use Recreational Drug Use: No Smoking Status: Former Smoker Type Used: Cigarettes Recent Foreign Travel: No Contact w/Someone Who Travel: No Recent Infectious Disease Expo: No Recent Hopitalizations: Yes Immunizations Up To Date Tetanus Booster (TDap): More than 5yrs Date of Pneumonia Vaccine: Jul 17, 2018 Date of Influenza Vaccine: Mar 10, 2019 Seasonal Allergies Seasonal Allergies: Yes Surgeries History of Surgeries: Yes Surgeries: Cardiac, Eye Surgery, Hysterectomy, Oophorectomy, Orthopedic, Tracheostomy Respiratory History of Respiratory Disorde: Yes Respiratory Disorders: Asthma, Pneumonia, COPD Cardiovascular History of Cardiac Disorders: Yes (PERICARDIAL WINDOW 1993) Cardiac Disorders: Atrial Fibrillation, Chronic Edema/Swelling, High Cholesterol, Hypertension Neurological History of Neurological Disord: Yes (NEUROPATHY IN FEET) Neurological Disorders: Neuropathy 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 System Hx 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 Disorders: Yes (ENDOMETRIAL HYPERPLASIA) 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, 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 Genitourinary History of Genitourinary Disor: Yes (ON DIALYSIS WHILE SICK WITH PN EUMONIA/MULTIORGAN FAILURE) Genitourinary Disorders: Renal Failure Gastrointestinal History of Gastrointestinal Di: Yes Gastrointestinal Disorders: Abdominal Hernia, Gastroesophageal Reflux Musculoskeletal History of Musculoskeletal Dis: Yes Musculoskeletal Disorders: Arthritis, Chronic Back Pain, Gout Endocrine History of Endocrine Disorders: Yes (MORBID OBESITY) Endocrine Disorders: Hypothyroidsim HEENT History of HEENT Disorders: Yes (HX OF TRACH; LEFT EYE SURGERY) HEENT Disorders: Tinnitis Cancer History of Cancer: No Psychosocial History of Psychiatric Problem: Yes Behavioral Health Disorders: Anxiety, Depression Integumentary History of Skin or Integumenta: Yes (LEG ULCERS; VENOUS STASIS ) Blood Transfusions History of Blood Disorders: Yes (ANEMIA) Adverse Reaction to a Blood Tr: No Family Medical History Family Medial History: Alzheimer's disease Arthritis Asthma Completed stroke Dementia Diabetes mellitus Glaucoma Hypertension Kidney disease Myocardial infarction Psychosocial problem Respiratory disorder Severe allergy Thyroid disease Visual disorder No Family History of: AIDS Abdominal aortic aneurysm [place]'s disease Alcoholism Aphasia Cancer of mouth Cardiovascular disease Cataracts Colon cancer Congenital disease Congenital heart disease Coronary thrombosis Cystic fibrosis Deafness or hearing loss Drug abuse Dysphasia Fibrocystic disease of breast Gastroenteritis Headache disorder Hypercholesterolemia Infertility Neoplasm Not obtainable due to adoption Osteoporosis Parkinson's disease Prostate cancer Seizure disorder Tuberculosis Review of Systems-General Constitutional: chills, fever EENTM: no symptoms reported Respiratory: short of breath Cardiovascular: No chest pain; edema Gastrointestinal: abdominal pain (RLQ, LLQ), nausea, vomiting Genitourinary: no symptoms reported Musculoskeletal: no symptoms reported Skin: no symptoms reported Psychiatric/Neurological: No Symptoms Reported Physical Exam-General Problems Physical Exam Vital Signs Vital Signs - First Documented 05/14/19 10:49 Temp 37.1 Pulse 76 Resp 20 B/P (MAP) 149/66 (93) Pulse Ox 96 O2 Delivery Nasal Cannula O2 Flow Rate 3.00 Capillary Refill : Less Than 3 Seconds General Appearance: no apparent distress, obese Eyes: Bilateral Eye PERRL, Bilateral Eye EOMI HEENT: PERRL/EOMI Neck: non-tender Respiratory: chest non-tender, no respiratory distress, decreased breath sounds, wheezing Peripheral Pulses: 2+ Radial Pulses (R), 2+ Radial Pulses (L) Gastrointestinal: distended; No guarding, No rebound; hernia Extremities: pedal edema, other (Patient has pedal Edema with stasis dermatitis BL) Neurologic/Psychiatric: alert, oriented x 3 Lymphatic: no adenopathy Data Review Labs Laboratory Tests 05/14/19 11:02: White Blood Count 9.6, Red Blood Count 3.46L, Hemoglobin 9.9L, Hematocrit 34L, Mean Corpuscular Volume 99, Mean Corpuscular Hemoglobin 29, Mean Corpuscular Hemoglobin Concent 29L, Red Cell Distribution Width 17.1H, Platelet Count 133, Mean Platelet Volume 11.2H, Neutrophils (%) (Auto) 90H, Lymphocytes (%) (Auto) 6L, Monocytes (%) (Auto) 3, Eosinophils (%) (Auto) 1, Basophils (%) (Auto) 0, Neutrophils # (Auto) 8.6H, Lymphocytes # (Auto) 0.6L, Monocytes # (Auto) 0.3, Eosinophils # (Auto) 0.1, Basophils # (Auto) 0.0, Neutrophils % (Manual) 92, Lymphocytes % (Manual) 6, Monocytes % (Manual) 1, Eosinophils % (Manual) 1, Hypochromasia SLIGHT, Poikilocytosis SLIGHT, Basophilic Stippling SLIGHT, Anisocytosis SLIGHT, Macrocytosis SLIGHT, Sodium Level 148H, Potassium Level 6.0H, Chloride Level 110H, Carbon Dioxide Level 31, Anion Gap 7, Blood Urea Nitrogen 54H, Creatinine 1.92H, Estimat Glomerular Filtration Rate 26, BUN/Creatinine Ratio 28, Glucose Level 126H, Calcium Level 9.2, Corrected Calcium 9.4, Total Bilirubin 0.3, Aspartate Amino Transf (AST/SGOT) 20, Alanine Aminotransferase (ALT/SGPT) 7, Alkaline Phosphatase 102, Total Protein 7.7, Albumin 3.8, Lipase 27 05/14/19 13:54: Glucometer 161H 05/14/19 18:00: Sodium Level 149H, Potassium Level 4.8, Chloride Level 112H, Carbon Dioxide Level 33H, Anion Gap 4L, Blood Urea Nitrogen 50H, Creatinine 1.72H, Estimat Glomerular Filtration Rate 29, BUN/Creatinine Ratio 29, Glucose Level 103, Calcium Level 9.1 Assessment/Plan Assessment/Plan Assessment/Plan Possible small bowel obstruction of either non-reducible umbilical or ventral hernia, Hyperkalemia, Anemia, COPD, CHF, RF, HTN, Obesity - Small bowel obstruction: pt currently has NG in for decompression and N/V. Patient is to be NPO, plan for small bowel follow through tomorrow. Results will dictate future surgical management. Please inform of increasing abdominal pain, temperature changes >100.4, or other peritoneal signs. - Continue to monitor Electrolyte abnormalities, repeat labs - SCDS for DVT mechanical prophylaxis - Continue medical management for chronic diseases Clinical Quality Measures DVT/VTE Risk/Contraindication: Risk Factor Score Per Nursin RFS Level Per Nursing on Admit: 4+=Very High Contraindications-Mechi: Other *list below* Other: MAY NEED SURGERY PER DR. STACK / NO LOVERUSTYX AT THIS TIME BALJIT ANTONIO DO 05/15/19 2221: History of Present Illness History of Present Illness History of Present Illness consult for hernia psbo from Dr. Stack. 68 year old female who had abdominal hernia for years but not s ure how long. Became painful yesterday/today having 10/10 pain she states that is dull and shooting. Changing positions makes better some. Nothing seems to make worse. Having some nausea and vomiting. Stays around umbilicus. Patient states she is primarily in a wheel chair and does not ambulate much due to her lungs. Ct scan shows ventral hernia containing small bowel, with possible partial small bowel obstruction. Allergies and Home Medications Allergies Coded Allergies: ondansetron (Verified Allergy, Unknown, 05/14/19) risperidone (Verified Allergy, Unknown, 10/16/18) simvastatin (Unverified Adverse Reaction, Unknown, 04/20/14) Home Medications Acetaminophen 325 Mg Tablet, 650 MG PO Q4H PRN for PAIN-MILD, (Reported) TAKES 2 (325MG) TABLETS Acetazolamide 250 Mg Tablet, 250 MG PO DAILY, (Reported) Allopurinol 100 Mg Tablet, 100 MG PO DAILY, (Reported) Budesonide/Formoterol Fumarate 10.2 Gm Hfa.aer.ad, 2 PUFF INH BID, (Reported) Chlorophyllin/[place] 1 Each Tablet, 1 TAB PO BID, (Reported) Cholecalciferol (Vitamin D3) 2,000 Unit Capsule, 2,000 UNIT PO DAILY, (Reported) Dextran 70/Hypromellose 15 Ml Drops, 2 DROPS OU Q4H PRN for DRY EYES, (Reported) Garlic 1,000 Mg Capsule, 1,000 MG PO DAILY, (Reported) Glucosamine Sulfate 2Kcl 1,000 Mg Tablet, 1,000 MG PO BID, (Reported) Guaifenesin 600 Mg Tab.er.12h, 600 MG PO Q12H PRN for CONGESTION, (Reported) Hydrocodone Bit/Acetaminophen 1 Each Tablet, 1 TAB PO BID, (Reported) Ipratropium/Albuterol Sulfate 3 Ml Ampul.neb, 3 ML NEB QID, (Reported) Levothyroxine Sodium 175 Mcg Tablet, 175 MCG PO DAILY, (Reported) Mag Hydrox/Al Hydrox/[place] 30 Ml Oral.susp, 30 ML PO UD PRN for INDIGESTION, (Reported) Metoprolol Tartrate 25 Mg Tablet, 25 MG PO BID, (Reported) HOLD FOR SBP<100, DBP <50, OR PULSE <60 Multivitamin 1 Each Tablet, 1 TAB PO DAILY, (Reported) Nystatin 15 Gm Powder, TOP BID PRN for IRRITATION, (Reported) [place] 3 Polyunsat Fatty Acids 1,000 Mg Cap, 1,000 MG PO DAILY, (Reported) Pantoprazole Sodium 40 Mg Tablet.dr, 40 MG PO DAILY, (Reported) Torsemide 20 Mg Tablet, 40 MG PO DAILY, (Reported) TAKES 2 TABLETS (40MG) TABLETS Zinc Oxide 113 Gm Cream..g., TP TID, (Reported) Patient Home Medication List Home Medication List Reviewed: Yes Past Yaozxcm-Ygpypb-Ydzcan Hx Patient Social History Type Used: Cigarettes Surgeries Surgeries: Eye Surgery, Hysterectomy, Oophorectomy, Orthopedic, Tracheostomy Respiratory Respiratory Disorders: Asthma, Pneumonia, COPD Cardiovascular Cardiac Disorders: Atrial Fibrillation, Chronic Edema/Swelling, High Cholesterol, Hypertension Neurological Neurological Disorders: Neuropathy 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, 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 Gastrointestinal Gastrointestinal Disorders: Abdominal Hernia, Gastroesophageal Reflux Musculoskeletal Musculoskeletal Disorders: Arthritis, Chronic Back Pain Endocrine Endocrine Disorders: Hypothyroidsim HEENT HEENT Disorders: Tinnitis Psychosocial Behavioral Health Disorders: Anxiety, Depression Family Medical History Significant Family History: No Pertinent Family Hx Family Medial History: Alzheimer's disease Arthritis Asthma Completed stroke Dementia Diabetes mellitus Glaucoma Hypertension Kidney disease Myocardial infarction Psychosocial problem Respiratory disorder Severe allergy Thyroid disease Visual disorder No Family History of: AIDS Abdominal aortic aneurysm [place]'s disease Alcoholism Aphasia Cancer of mouth Cardiovascular disease Cataracts Colon cancer Congenital disease Congenital heart disease Coronary thrombosis Cystic fibrosis Deafness or hearing loss Drug abuse Dysphasia Fibrocystic disease of breast Gastroenteritis Headache disorder Hypercholesterolemia Infertility Neoplasm Not obtainable due to adoption Osteoporosis Parkinson's disease Prostate cancer Seizure disorder Tuberculosis Review of Systems-General Constitutional: chills, fever EENTM: no symptoms reported Respiratory: short of breath Gastrointestinal: abdominal pain (RLQ, LLQ), nausea, vomiting Genitourinary: no symptoms reported Musculoskeletal: no symptoms reported Skin: no symptoms reported Psychiatric/Neurological: No Symptoms Reported Physical Exam-General Problems Physical Exam General Appearance: no apparent distress HEENT: PERRL/EOMI Neck: non-tender Respiratory: chest non-tender, no respiratory distress, no accessory muscle use Cardiovascular: regular rate, rhythm Gastrointestinal: non tender; No guarding, No rebound; hernia, other (obese) Back: no CVA tenderness Extremities: pedal edema, other (Patient has pedal Edema with stasis dermatitis BL) Neurologic/Psychiatric: alert, oriented x 3 Skin: warm/dry Lymphatic: no adenopathy Assessment/Plan Assessment/Plan Assessment/Plan Possible small bowel obstruction, incarcerated ventral hernia, Nausea/vomiting, Hyperkalemia, Anemia, COPD, CHF, RF, HTN, Obesity patient is npo with ng tube in place. will get small bowel follow through to check and see if there is an obstruction. conservative measures at this time. will follow Supervisory-Addendum Brief Verification & Attestation Participated in pt care: history, MDM, physical Personally performed: exam, history, MDM, supervision of care Care discussed with: Medical Student Procedures: n/a Results interpretation: Verified all documentation Verification and Attestation of Medical Student E/M Service A medical student performed and documented this service in my presence. I reviewed and verified all information documented by the medical student and made modifications to such information, when appropriate. I personally performed the physical exam and medical decision making. Baljit Antonio, May 14, 2019,22:[address] [facility] May 14, 2019 19:03 BALJIT ELENA DO May 15, 2019 22:21 POS
[2019-05-14 20:08] VITALS: BP 145/63
[2019-05-14] MEDS: RT-ALBUTEROL SULF 2.5 MG/3 ML PRE-MIX VIAL INH SCH (21:51)
[2019-05-15] VITALS (10 sets, daily range): BP systolic 154–191; BP diastolic 65–79
[2019-05-15] MEDS: meTOprolol 5 MG/5 ML (LOPRESSOR) VIAL IV SCH ×5 (00:47→23:33)
[2019-05-15] MEDS: LACTATED RINGERS 1,000 ML IV SCH ×2 (00:48→00:59)
[2019-05-15 05:23] LABS: BASOPHILS % (AUTO) 0 % (0-10); EOSINOPHILS # (AUTO) 0.1 10^3/uL (0.0-0.3); EOSINOPHILS % (AUTO) 2 % (0-10); HEMATOCRIT 35 % (35-52); HEMOGLOBIN 9.7 G/DL (11.5-16.0); LYMPHOCYTES # (AUTO) 0.7 X 10^3 (1.0-4.0); LYMPHOCYTES % (AUTO) 9 % (12-44); MEAN CORPUSCULAR HEMOGLOBIN 28 PG (25-34); MEAN CORPUSCULAR HGB CONC 28 G/DL (32-36); MEAN CORPUSCULAR VOLUME 102 FL (80-99); MEAN PLATELET VOLUME 11.6 FL (7.4-10.4); MONOCYTES # (AUTO) 0.4 X 10^3 (0.0-1.0); MONOCYTES % (AUTO) 5 % (0-12); NEUTROPHILS # (AUTO) 6.1 X 10^3 (1.8-7.8); NEUTROPHILS % (AUTO) 84 % (42-75); PLATELET COUNT 101 10^3/uL (130-400); RED CELL DISTRIBUTION WIDTH 16.4 % (10.0-14.5); WHITE BLOOD COUNT 7.3 10^3/uL (4.3-11.0)
[2019-05-15 05:52] LABS: ALBUMIN 3.6 GM/DL (3.2-4.5); BILIRUBIN,TOTAL 0.3 MG/DL (0.1-1.0); CALCIUM 9.1 MG/DL (8.5-10.1); CREATININE SERUM 1.57 MG/DL (0.60-1.30); POTASSIUM 4.6 MMOL/L (3.6-5.0); TOTAL PROTEIN 6.8 GM/DL (6.4-8.2)
[2019-05-15] MEDS: RT-ALBUTEROL SULF 2.5 MG/3 ML PRE-MIX VIAL INH SCH (07:43)
--- NOTE | 2019-05-15 08:13 | Progress Note ---
Subjective Time Seen by a Provider: 08:11 Subjective/Events-last exam Patient in wheelchair this morning. Patient states she feels better. Patient states pain in abdomen last. Small bowel obstruction. COPD. Renal insufficiency. Objective Exam Vital Signs Date Time Temp Pulse Resp B/P (MAP) Pulse Ox O2 Delivery O2 Flow Rate FiO2 05/15/19 07:44 99 Nasal Cannula 3.50 05/15/19 07:00 73 05/15/19 04:45 36.6 86 16 155/69 (97) 100 Nasal Cannula 3.00 05/15/19 01:00 78 05/15/19 00:30 36.6 83 22 155/70 (98) 99 Nasal Cannula 3.00 05/14/19 21:51 97 Nasal Cannula 3.50 05/14/19 20:08 36.8 74 24 145/63 (90) 99 Nasal Cannula 3.00 05/14/19 19:55 99 Nasal Cannula 3.00 05/14/19 19:00 83 05/14/19 18:07 82 05/14/19 15:55 36.9 80 18 181/71 (107) 99 Nasal Cannula 3.00 05/14/19 14:47 100 Nasal Cannula 3.00 05/14/19 14:29 79 20 170/79 100 Nasal Cannula 3.00 05/14/19 14:05 37.1 83 20 165/78 (93) 95 Nasal Cannula 3.00 05/14/19 10:49 37.1 76 20 149/66 (93) 96 Nasal Cannula 3.00 05/14/19 10:49 96 Nasal Cannula 3.00 I & O 05/15/19 07:00 Intake Total 1500 ml Output Total 500 ml Balance 1000 ml Capillary Refill : Less Than 3 Seconds General Appearance: No Apparent Distress, WD/WN HEENT: Normal ENT Inspection Neck: Full Range of Motion Respiratory: No Accessory Muscle Use, No Respiratory Distress, Decreased Breath Sounds Cardiovascular: Regular Rate, Rhythm Gastrointestinal: tenderness Results Lab Laboratory Tests 05/14/19 11:02 05/14/19 18:00 05/15/19 05:10 Laboratory Tests 05/14/19 11:02: White Blood Count 9.6, Red Blood Count 3.46L, Hemoglobin 9.9L, Hematocrit 34L, Mean Corpuscular Volume 99, Mean Corpuscular Hemoglobin 29, Mean Corpuscular Hemoglobin Concent 29L, Red Cell Distribution Width 17.1H, Platelet Count 133, Mean Platelet Volume 11.2H, Neutrophils (%) (Auto) 90H, Lymphocytes (%) (Auto) 6L, Monocytes (%) (Auto) 3, Eosinophils (%) (Auto) 1, Basophils (%) (Auto) 0, Neutrophils # (Auto) 8.6H, Lymphocytes # (Auto) 0.6L, Monocytes # (Auto) 0.3, Eosinophils # (Auto) 0.1, Basophils # (Auto) 0.0, Neutrophils % (Manual) 92, Lymphocytes % (Manual) 6, Monocytes % (Manual) 1, Eosinophils % (Manual) 1, Hypochromasia SLIGHT, Poikilocytosis SLIGHT, Basophilic Stippling SLIGHT, Anisocytosis SLIGHT, Macrocytosis SLIGHT, Sodium Level 148H, Potassium Level 6.0H, Chloride Level 110H, Carbon Dioxide Level 31, Anion Gap 7, Blood Urea Nitrogen 54H, Creatinine 1.92H, Estimat Glomerular Filtration Rate 26, BUN/Creatinine Ratio 28, Glucose Level 126H, Calcium Level 9.2, Corrected Calcium 9.4, Total Bilirubin 0.3, Aspartate Amino Transf (AST/SGOT) 20, Alanine Aminotransferase (ALT/SGPT) 7, Alkaline Phosphatase 102, Total Protein 7.7, Albumin 3.8, Lipase 27 05/14/19 13:54: Glucometer 161H 05/14/19 18:00: Sodium Level 149H, Potassium Level 4.8, Chloride Level 112H, Carbon Dioxide Level 33H, Anion Gap 4L, Blood Urea Nitrogen 50H, Creatinine 1.72H, Estimat Glomerular Filtration Rate 29, BUN/Creatinine Ratio 29, Glucose Level 103, Calcium Level 9.1 05/15/19 05:10: White Blood Count 7.3, Red Blood Count 3.45L, Hemoglobin 9.7L, Hematocrit 35, Mean Corpuscular Volume 102H, Mean Corpuscular Hemoglobin 28, Mean Corpuscular Hemoglobin Concent 28L, Red Cell Distribution Width 16.4H, Platelet Count 101L, Mean Platelet Volume 11.6H, Neutrophils (%) (Auto) 84H, Lymphocytes (%) (Auto) 9L, Monocytes (%) (Auto) 5, Eosinophils (%) (Auto) 2, Basophils (%) (Auto) 0, Neutrophils # (Auto) 6.1, Lymphocytes # (Auto) 0.7L, Monocytes # (Auto) 0.4, Eosinophils # (Auto) 0.1, Basophils # (Auto) 0.0, Sodium Level 150H, Potassium Level 4.6, Chloride Level 112H, Carbon Dioxide Level 29, Anion Gap 9, Blood Urea Nitrogen 45H, Creatinine 1.57H, Estimat Glomerular Filtration Rate 33, BUN/Creatinine Ratio 29, Glucose Level 98, Calcium Level 9.1, Corrected Calcium 9.4, Total Bilirubin 0.3, Aspartate Amino Transf (AST/SGOT) 10, Alanine Aminotransferase (ALT/SGPT) 9, Alkaline Phosphatase 105, Total Protein 6.8, Albumin 3.6 Assessment/Plan Assessment/Plan Assess & Plan/Chief Complaint Incarcerated umbilical hernia. COPD. Hypertension. Renal insufficiency Clinical Quality Measures Admission Status Admission Dx Small bowel obstruction. Incarcerated umbilical hernia. COPD. Renal insufficiency. Hyperkalemia. Hypertension DVT/VTE Risk/Contraindication: Risk Factor Score Per Nursin RFS Level Per Nursing on Admit: 4+=Very High Contraindications-Mechi: Other *list below* Other: MAY NEED SURGERY PER DR. STACK / RUSTY LEAL AT THIS TIME AURORA STACK DO May 15, 2019 08:13 POS
[2019-05-15] MEDS ORDERED: DIATRIZOATE MEGLUM/SODIUM 37% 120 ML (GASTROGRAFIN) NG ONE (09:30)
--- NOTE | 2019-05-15 09:42 | Diagnostic Imaging Report ---
EXAMINATION: Abdomen 1 view. HISTORY: Bowel obstruction. COMPARISON: 02/04/2012 FINDINGS: Gastric tube tip terminates in the body of the stomach. No dilated loops of large or small bowel are seen. Bowel gas pattern is nonspecific. No free air is seen. IMPRESSION: 1. Nonspecific bowel gas pattern without dilated loops but an overall paucity of gas. Dictated by: Dictated on workstation # [id number]
--- NOTE | 2019-05-15 10:07 | Pulmonary Consultation ---
KLEVER LE MED STUDENT 05/15/19 1006: History of Present Illness History of Present Illness Date of Admission Reason for Visit: Hernia and small bowel obstruction History of Present Illness Patient is a 68 year old female with a past medical history of COPD being consulted prior to surgery for ventral abdominal wall hernia. Allergies and Home Medications Allergies Coded Allergies: ondansetron (Verified Allergy, Unknown, 05/14/19) risperidone (Verified Allergy, Unknown, 10/16/18) simvastatin (Unverified Adverse Reaction, Unknown, 04/20/14) Home Medications Acetaminophen 325 Mg Tablet, 650 MG PO Q4H PRN for PAIN-MILD, (Reported) TAKES 2 (325MG) TABLETS Acetazolamide 250 Mg Tablet, 250 MG PO DAILY, (Reported) Allopurinol 100 Mg Tablet, 100 MG PO DAILY, (Reported) Budesonide/Formoterol Fumarate 10.2 Gm Hfa.aer.ad, 2 PUFF INH BID, (Reported) Chlorophyllin/[place] 1 Each Tablet, 1 TAB PO BID, (Reported) Cholecalciferol (Vitamin D3) 2,000 Unit Capsule, 2,000 UNIT PO DAILY, (Reported) Dextran 70/Hypromellose 15 Ml Drops, 2 DROPS OU Q4H PRN for DRY EYES, (Reported) Garlic 1,000 Mg Capsule, 1,000 MG PO DAILY, (Reported) Glucosamine Sulfate 2Kcl 1,000 Mg Tablet, 1,000 MG PO BID, (Reported) Guaifenesin 600 Mg Tab.er.12h, 600 MG PO Q12H PRN for CONGESTION, (Reported) Hydrocodone Bit/Acetaminophen 1 Each Tablet, 1 TAB PO BID, (Reported) Ipratropium/Albuterol Sulfate 3 Ml Ampul.neb, 3 ML NEB QID, (Reported) Levothyroxine Sodium 175 Mcg Tablet, 175 MCG PO DAILY, (Reported) Mag Hydrox/Al Hydrox/Simeth 30 Ml Oral.susp, 30 ML PO UD PRN for INDIGESTION, (Reported) Metoprolol Tartrate 25 Mg Tablet, 25 MG PO BID, (Reported) HOLD FOR SBP<100, DBP <50, OR PULSE <60 Multivitamin 1 Each Tablet, 1 TAB PO DAILY, (Reported) Nystatin 15 Gm Powder, TOP BID PRN for IRRITATION, (Reported) Head Waters 3 Polyunsat Fatty Acids 1,000 Mg Cap, 1,000 MG PO DAILY, (Reported) Pantoprazole Sodium 40 Mg Tablet.dr, 40 MG PO DAILY, (Reported) Torsemide 20 Mg Tablet, 40 MG PO DAILY, (Reported) TAKES 2 TABLETS (40MG) TABLETS Zinc Oxide 113 Gm Cream..g., TP TID, (Reported) Past Izahajp-Pexhag-Lcjmzl Hx Past Med/Social Hx: Reviewed Nursing Past Med/Soc Hx Patient Social History Alcohol Use: Denies Use Recreational Drug Use: No Smoking Status: Former Smoker Type Used: Cigarettes Recent Foreign Travel: No Contact w/Someone Who Travel: No Recent Infectious Disease Expo: No Recent Hopitalizations: Yes Physical Abuse: No Sexual Abuse: No Immunizations Up To Date Tetanus Booster (TDap): More than 5yrs Date of Pneumonia Vaccine: Jul 17, 2018 Date of Influenza Vaccine: Mar 10, 2019 Seasonal Allergies Seasonal Allergies: Yes Past Medical History Surgeries: Yes Cardiac, Eye Surgery, Hysterectomy, Oophorectomy, Orthopedic, Tracheostomy Respiratory: Yes Asthma, Pneumonia, COPD Cardiac: Yes (PERICARDIAL WINDOW 1993) Atrial Fibrillation, Chronic Edema/Swelling, High Cholesterol, Hypertension Neurological: Yes (NEUROPATHY IN FEET) Neuropathy 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 Disorders: Yes (ENDOMETRIAL HYPERPLASIA) 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 History: Hysterectomy, Menopausal Sexually Transmitted Disease: No Genitourinary: Yes (ON DIALYSIS WHILE SICK WITH PNEUMONIA/MULTIORGAN FAILURE) Renal Failure Gastrointestinal: Yes Abdominal Hernia, Gastroesophageal Reflux Musculoskeletal: Yes Arthritis, Chronic Back Pain, Gout Endocrine: Yes (MORBID OBESITY) Hypothyroidsim HEENT: Yes (HX OF TRACH; LEFT EYE SURGERY) Tinnitis Cancer: No Psychosocial: Yes Anxiety, Depression Integumentary: Yes (LEG ULCERS; VENOUS STASIS ) Blood Disorders: Yes (ANEMIA) Adverse Reaction/Blood Tranf: No Family Medical History Alzheimer's disease Arthritis Asthma Completed stroke Dementia Diabetes mellitus Glaucoma Hypertension Kidney disease Myocardial infarction Psychosocial problem Respiratory disorder Severe allergy Thyroid disease Visual disorder No Family History of: AIDS Abdominal aortic aneurysm Bradley's disease Alcoholism Aphasia Cancer of mouth Cardiovascular disease Cataracts Colon cancer Congenital disease Congenital heart disease Coronary thrombosis Cystic fibrosis Deafness or hearing loss Drug abuse Dysphasia Fibrocystic disease of breast Gastroenteritis Headache disorder Hypercholesterolemia Infertility Neoplasm Not obtainable due to adoption Osteoporosis Parkinson's disease Prostate cancer Seizure disorder Tuberculosis Sepsis Event Evaluation Height, Weight, BMI Height: 5'4.00" Weight: 246lbs. 2.0oz. 111.107188mw; 40.77 BMI Method:Stated Exam Exam Vital Signs Date Time Temp Pulse Resp B/P (MAP) Pulse Ox O2 Delivery O2 Flow Rate FiO2 05/15/19 08:00 36.2 78 22 156/69 (98) 99 Nasal Cannula 3.00 05/15/19 07:44 99 Nasal Cannula 3.50 05/15/19 07:00 73 05/15/19 04:45 36.6 86 16 155/69 (97) 100 Nasal Cannula 3.00 05/15/19 01:00 78 05/15/19 00:30 36.6 83 22 155/70 (98) 99 Nasal Cannula 3.00 05/14/19 21:51 97 Nasal Cannula 3.50 05/14/19 20:08 36.8 74 24 145/63 (90) 99 Nasal Cannula 3.00 05/14/19 19:55 99 Nasal Cannula 3.00 05/14/19 19:00 83 05/14/19 18:07 82 05/14/19 15:55 36.9 80 18 181/71 (107) 99 Nasal Cannula 3.00 05/14/19 14:47 100 Nasal Cannula 3.00 05/14/19 14:29 79 20 170/79 100 Nasal Cannula 3.00 05/14/19 14:05 37.1 83 20 165/78 (93) 95 Nasal Cannula 3.00 05/14/19 10:49 37.1 76 20 149/66 (93) 96 Nasal Cannula 3.00 05/14/19 10:49 96 Nasal Cannula 3.00 I & O 05/15/19 07:00 Intake Total 1500 ml Output Total 500 ml Balance 1000 ml Height & Weight Height: 5'4.00" Weight: 246lbs. 2.0oz. 111.098842iu; 40.77 BMI Method:Stated General Appearance: No Apparent Distress, WD/WN HEENT: Normal ENT Inspection Neck: Full Range of Motion Respiratory: No Accessory Muscle Use, No Respiratory Distress, Decreased Breath Sounds Cardiovascular: Regular Rate, Rhythm Capillary Refill: Less Than 3 Seconds Peripheral Pulses: 2+ Radial Pulses (R), 2+ Radial Pulses (L) Gastrointestinal: tenderness Neurologic/Psychiatric: Alert, Oriented x3, Normal Mood/Affect Results Lab Laboratory Tests 05/14/19 11:02 05/14/19 18:00 05/15/19 05:10 Radiology 05/14/19 Chest Xray IMPRESSION: Stable examination demonstrating cardiomegaly without overt congestive heart failure or additional superimposed acute cardiopulmonary abnormality. 05/14/19 CT abdomen and pelvis without contrast. IMPRESSION: Probable developing site of obstruction in the distal small bowel at the site of ventral small bowel herniation. Clinical correlation is recommended. ESTRELLITA PITT DO 05/15/19 1515: History of Present Illness History of Present Illness History of Present Illness 68yo with hx of obesity, and COPD presented to ED secondary to worsening 04/03 abdominal pain, worsening N/V. Pt was found to have abdominal hernia. I am consulted for pulmonary management. Allergies and Home Medications Allergies Coded Allergies: ondansetron (Verified Allergy, Unknown, 05/14/19) risperidone (Verified Allergy, Unknown, 10/16/18) simvastatin (Unverified Adverse Reaction, Unknown, 04/20/14) Home Medications Acetaminophen 325 Mg Tablet, 650 MG PO Q4H PRN for PAIN-MILD, (Reported) TAKES 2 (325MG) TABLETS Acetazolamide 250 Mg Tablet, 250 MG PO DAILY, (Reported) Allopurinol 100 Mg Tablet, 100 MG PO DAILY, (Reported) Budesonide/Formoterol Fumarate 10.2 Gm Hfa.aer.ad, 2 PUFF INH BID, (Reported) Chlorophyllin/[place] 1 Each Tablet, 1 TAB PO BID, (Reported) Cholecalciferol (Vitamin D3) 2,000 Unit Capsule, 2,000 UNIT PO DAILY, (Reported) Dextran 70/Hypromellose 15 Ml Drops, 2 DROPS OU Q4H PRN for DRY EYES, (Reported) Garlic 1,000 Mg Capsule, 1,000 MG PO DAILY, (Reported) Glucosamine Sulfate 2Kcl 1,000 Mg Tablet, 1,000 MG PO BID, (Reported) Guaifenesin 600 Mg Tab.er.12h, 600 MG PO Q12H PRN for CONGESTION, (Reported) Hydrocodone Bit/Acetaminophen 1 Each Tablet, 1 TAB PO BID, (Reported) Ipratropium/Albuterol Sulfate 3 Ml Ampul.neb, 3 ML NEB QID, (Reported) Levothyroxine Sodium 175 Mcg Tablet, 175 MCG PO DAILY, (Reported) Mag Hydrox/Al Hydrox/Simeth 30 Ml Oral.susp, 30 ML PO UD PRN for INDIGESTION, (Reported) Metoprolol Tartrate 25 Mg Tablet, 25 MG PO BID, (Reported) HOLD FOR SBP<100, DBP <50, OR PULSE <60 Multivitamin 1 Each Tablet, 1 TAB PO DAILY, (Reported) Nystatin 15 Gm Powder, TOP BID PRN for IRRITATION, (Reported) [place] 3 Polyunsat Fatty Acids 1,000 Mg Cap, 1,000 MG PO DAILY, (Reported) Pantoprazole Sodium 40 Mg Tablet.dr, 40 MG PO DAILY, (Reported) Torsemide 20 Mg Tablet, 40 MG PO DAILY, (Reported) TAKES 2 TABLETS (40MG) TABLETS Zinc Oxide 113 Gm Cream..g., TP TID, (Reported) Past Gbbwvtk-Gprdgq-Knpsga Hx Family Medical History Alzheimer's disease Arthritis Asthma Completed stroke Dementia Diabetes mellitus Glaucoma Hypertension Kidney disease Myocardial infarction Psychosocial problem Respiratory disorder Severe allergy Thyroid disease Visual disorder No Family History of: AIDS Abdominal aortic aneurysm Jae's disease Alcoholism Aphasia Cancer of mouth Cardiovascular disease Cataracts Colon cancer Congenital disease Congenital heart disease Coronary thrombosis Cystic fibrosis Deafness or hearing loss Drug abuse Dysphasia Fibrocystic disease of breast Gastroenteritis Headache disorder Hypercholesterolemia Infertility Neoplasm Not obtainable due to adoption Osteoporosis Parkinson's disease Prostate cancer Seizure disorder Tuberculosis Review of Systems Time Seen by Provider: 15:12 Constitutional: Sweats, Weakness, Malaise; No: Fever, Chills, Other Eyes: No: Pain, Vision change, Conjunctivae inflammation, Eyelid inflammation, Other, Redness ENT: Nose congestion; No: Ear pain, Ear discharge, Nose pain, Nose discharge, Mouth pain, Mouth swelling, Throat pain, Throat swelling, Other Respiratory: Cough, Dry, Shortness of breath, SOB with excertion; No: Wheezing, Hemoptysis Cardiovascular: Palpitations, Orthopnea, Paroxysmal Noc. Dyspnea, Edema Exam Exam General Appearance: No Apparent Distress HEENT: Normal ENT Inspection Neck: Full Range of Motion Respiratory: No Accessory Muscle Use, No Respiratory Distress, Decreased Breath Sounds Cardiovascular: Regular Rate, Rhythm Capillary Refill: Less Than 3 Seconds Gastrointestinal: tenderness Neurologic/Psychiatric: Alert, Oriented x3, Normal Mood/Affect Assessment/Plan Assessment/Plan Hx of COPD - -Pt is on 3 liters of oxygen with Sp02 99% Constipation r/o SBO -Surgery following Hypernatremia -Change IVF to D51/2 NS Renal failure -IVF and monitor Ventral hernia Obesity PT is going to be moderate risk for surgery and post op respiratory compli cations. KLEVER LE STUDENT May 15, 2019 10:06 ESTRELLITA YEN DO May 15, 2019 15:15 POS
--- NOTE | 2019-05-15 10:54 | Diagnostic Imaging Report ---
INDICATION: Possible small bowel obstruction. TECHNIQUE: Patient was given a mixture of Gastrografin contrast and water and serial radiographs of the abdomen were obtained. FINDINGS: There is normal opacification of the stomach. There is prompt emptying into the small bowel loops. There is normal progression of contrast through the small bowel loops to the right colon. No small bowel dilatation is seen. There is no obstruction identified. Fold pattern is unremarkable. IMPRESSION: No evidence of small bowel obstruction. Dictated by: Dictated on workstation # [id number]
[2019-05-15] MEDS: D5 1/2 NS 1000 ML IV SOLUTION 1,000 ML IV SCH ×2 (11:49→21:24)
[2019-05-15] MEDS: fentaNYL INJECTION 100 MCG/2 ML AMP IV PRN ×2 (11:53→14:41)
[2019-05-15] MEDS: ZINC OXIDE 16% OINT (BUTT PASTE) 113 GM TUBE TOP SCH ×2 (12:42→20:28)
--- NOTE | 2019-05-15 12:43 | NUR ---
prior to metoprolol b/p was 164/77 this RN gave metoprolol per Dr. Carrera's orders.
--- NOTE | 2019-05-15 14:20 | NUR ---
Gastrografin given in radiology.
[2019-05-15] MEDS: RT-ALBUTEROL/IPRATROPIUM 3 ML (DUONEB) VIAL INH SCH ×2 (15:03→19:43)
--- NOTE | 2019-05-15 15:48 | NUR ---
NG TUBE REMOVED AT THIS TIME, PER DR. ANTONIO'S ORDERS.
--- NOTE | 2019-05-15 18:48 | Progress Note - Surgery ---
[facility] 05/15/19 1848: Subjective Date Seen by a Provider: May 15, 2019 Time Seen by a Provider: 16:20 Subjective/Events-last exam Pt is alert and oriented and no acute distress. no family at bedside Pt has minor abdominal pain but it is improved from yesterday. Pt has had 3 bowel movements and is urinating without issue. Currently has NG tube in place, Nurse stated 600mL of drainage Can only ambulate for short distances Pt denies N/V, F/C, Chest pain, and has minor SOB. She also coughs which is attributed to her COPD Objective Exam Vital Signs Date Time Temp Pulse Resp B/P (MAP) Pulse Ox O2 Delivery O2 Flow Rate FiO2 05/15/19 18:19 84 171/79 (109) 05/15/19 16:40 182/70 (107) 05/15/19 16:39 182/70 (107) 05/15/19 16:24 36.4 76 20 191/78 (115) 99 Nasal Cannula 3.00 05/15/19 15:06 94 Nasal Cannula 3.50 05/15/19 12:18 82 05/15/19 12:00 36.6 86 20 164/77 (106) 97 Nasal Cannula 3.00 05/15/19 08:00 36.2 78 22 156/69 (98) 99 Nasal Cannula 3.00 05/15/19 08:00 Nasal Cannula 3.00 05/15/19 07:44 99 Nasal Cannula 3.50 05/15/19 07:00 73 05/15/19 04:45 36.6 86 16 155/69 (97) 100 Nasal Cannula 3.00 05/15/19 01:00 78 05/15/19 00:30 36.6 83 22 155/70 (98) 99 Nasal Cannula 3.00 05/14/19 21:51 97 Nasal Cannula 3.50 05/14/19 20:08 36.8 74 24 145/63 (90) 99 Nasal Cannula 3.00 05/14/19 19:55 99 Nasal Cannula 3.00 05/14/19 19:00 83 I & O 05/15/19 07:00 Intake Total 1500 ml Output Total 500 ml Balance 1000 ml Capillary Refill : Less Than 3 Seconds General Appearance: No Apparent Distress, Chronically ill, Obese HEENT: Normal ENT Inspection Neck: Full Range of Motion Respiratory: No Accessory Muscle Use, No Respiratory Distress, Decreased Breath Sounds Cardiovascular: Regular Rate, Rhythm Peripheral Pulses: 2+ Radial Pulses (R), 2+ Radial Pulses (L) Gastrointestinal: non tender, distended Extremity: Pedal Edema, Other (Pt has stasis dermatitis and edema of both legs and feet) Neurologic/Psychiatric: Alert, Oriented x3, Normal Mood/Affect Skin: Erythema (Legs bilaterally ) Lymphatic: No Adenopathy Results Lab Laboratory Tests 05/15/19 05:10: White Blood Count 7.3, Red Blood Count 3.45L, Hemoglobin 9.7L, Hematocrit 35, Mean Corpuscular Volume 102H, Mean Corpuscular Hemoglobin 28, Mean Corpuscular Hemoglobin Concent 28L, Red Cell Distribution Width 16.4H, Platelet Count 101L, Mean Platelet Volume 11.6H, Neutrophils (%) (Auto) 84H, Lymphocytes (%) (Auto) 9L, Monocytes (%) (Auto) 5, Eosinophils (%) (Auto) 2, Basophils (%) (Auto) 0, Neutrophils # (Auto) 6.1, Lymphocytes # (Auto) 0.7L, Monocytes # (Auto) 0.4, Eosinophils # (Auto) 0.1, Basophils # (Auto) 0.0, Sodium Level 150H, Potassium Level 4.6, Chloride Level 112H, Carbon Dioxide Level 29, Anion Gap 9, Blood Urea Nitrogen 45H, Creatinine 1.57H, Estimat Glomerular Filtration Rate 33, BUN/Creatinine Ratio 29, Glucose Level 98, Calcium Level 9.1, Corrected Calcium 9.4, Total Bilirubin 0.3, Aspartate Amino Transf (AST/SGOT) 10, Alanine Aminotransferase (ALT/SGPT) 9, Alkaline Phosphatase 105, Total Protein 6.8, Albumin 3.6 Assessment/Plan Assessment/Plan Assessment/Plan Possible small bowel obstruction of either non-reducible umbilical or ventral hernia, Hyperkalemia, Anemia, COPD, CHF, RF, HTN, Obesity - Small bowel obstruction: showed no signs of obstruction, pt is having bowel movements, will remove NG tube and start patient on clear liquid diet. - Continue to monitor Electrolyte abnormalities, repeat labs. May consider hypotonic or Isotonic fluids for patients hypernatremia - SCDS for DVT mechanical prophylaxis - Continue medical management for chronic diseases Clinical Quality Measures DVT/VTE Risk/Contraindication: Risk Factor Score Per Nursin RFS Level Per Nursing on Admit: 4+=Very High Contraindications-Mechi: Other *list below* Other: MAY NEED SURGERY PER DR. STACK / NO LOVENOX AT THIS TIME JARED ANTONIO DO 05/15/19 2234: Subjective Subjective/Events-last exam Feeling better today. Flatus and bowel movements. Small bowel follow through no obstruction. Some shortness of breath. Denies n/v fever sweats chills and chest pain. Objective Exam General Appearance: No Apparent Distress, Chronically ill, Obese HEENT: PERRL/EOMI, Normal ENT Inspection Respiratory: Chest Non Tender, No Accessory Muscle Use, No Respiratory Distress, Decreased Breath Sounds Cardiovascular: Regular Rate, Rhythm Gastrointestinal: non tender, soft; No distended; hernia (ventral incarcerated) Extremity: Pedal Edema, Other (Pt has stasis dermatitis and edema of both legs and feet) Neurologic/Psychiatric: Alert, Oriented x3, Normal Mood/Affect Lymphatic: No Adenopathy Assessment/Plan Assessment/Plan Assessment/Plan ventral hernia incarcerated morbid obesity copd, chf, rf, htn psbo small bowel follow through open no obstruction plan removing ng advance diet clears and slowly as tolerates will follow no surgical intervention Supervisory-Addendum Brief Verification & Attestation Participated in pt care: history, MDM, physical Personally performed: exam, history, MDM, supervision of care Care discussed with: Medical Student Procedures: n/a Results interpretation: Verified all documentation Verification and Attestation of Medical Student E/M Service A medical student performed and documented this service in my presence. I reviewed and verified all information documented by the medical student and made modifications to such information, when appropriate. I personally performed the physical exam and medical decision making. Jared Antonio, May 15, 2019,22:30 [facility] May 15, 2019 18:48 JARED ELENA DO May 15, 2019 22:34 POS
[2019-05-16] MEDS: RT-ALBUTEROL/IPRATROPIUM 3 ML (DUONEB) VIAL INH SCH ×2 (02:47→03:27)
[2019-05-16 04:10] VITALS: BP 153/65
[2019-05-16] MEDS: meTOprolol 5 MG/5 ML (LOPRESSOR) VIAL IV SCH (05:26)
[2019-05-16] MEDS: D5 1/2 NS 1000 ML IV SOLUTION 1,000 ML IV SCH (05:34)
[2019-05-16 05:56] LABS: BASOPHILS % (AUTO) 0 % (0-10); EOSINOPHILS # (AUTO) 0.2 10^3/uL (0.0-0.3); EOSINOPHILS % (AUTO) 2 % (0-10); HEMATOCRIT 32 % (35-52); HEMOGLOBIN 8.9 G/DL (11.5-16.0); LYMPHOCYTES # (AUTO) 0.7 X 10^3 (1.0-4.0); LYMPHOCYTES % (AUTO) 9 % (12-44); MEAN CORPUSCULAR HEMOGLOBIN 28 PG (25-34); MEAN CORPUSCULAR HGB CONC 28 G/DL (32-36); MEAN CORPUSCULAR VOLUME 101 FL (80-99); MEAN PLATELET VOLUME 10.8 FL (7.4-10.4); MONOCYTES # (AUTO) 0.3 X 10^3 (0.0-1.0); MONOCYTES % (AUTO) 4 % (0-12); NEUTROPHILS # (AUTO) 6.5 X 10^3 (1.8-7.8); NEUTROPHILS % (AUTO) 85 % (42-75); PLATELET COUNT 97 10^3/uL (130-400); RED CELL DISTRIBUTION WIDTH 16.5 % (10.0-14.5); WHITE BLOOD COUNT 7.7 10^3/uL (4.3-11.0)
[2019-05-16 06:15] LABS: CALCIUM 8.7 MG/DL (8.5-10.1); CREATININE SERUM 1.44 MG/DL (0.60-1.30); MAGNESIUM 2.3 MG/DL (1.6-2.4); PHOSPHORUS 2.9 MG/DL (2.3-4.7); POTASSIUM 4.3 MMOL/L (3.6-5.0)
--- NOTE | 2019-05-16 07:01 | Diagnostic Imaging Report ---
INDICATION: Incarcerated ventral hernia. Portable chest 3:31 AM Heart size and pulmonary vascularity are normal. Lungs are clear. There are no effusions or pneumothoraces. There is left lateral basal pleural scarring. IMPRESSION: No acute abnormalities in the chest. No change compared to 05/14/2019. Dictated by: Dictated on workstation # [id number]
--- NOTE | 2019-05-16 08:23 | Progress Note ---
Subjective Time Seen by a Provider: 08:21 Subjective/Events-last exam Patient continues to improve. Nasogastric tube out. Picking liquid diet not felt well. Pain in hernia reason less. Renal insufficiency improving. Hypertension. Patient put on oral medications Objective Exam Vital Signs Date Time Temp Pulse Resp B/P (MAP) Pulse Ox O2 Delivery O2 Flow Rate FiO2 05/16/19 07:00 88 05/16/19 04:10 36.8 75 20 153/65 (94) 97 Nasal Cannula 3.00 05/16/19 02:47 97 Nasal Cannula 3.50 05/16/19 01:00 67 05/15/19 23:00 36.4 76 18 170/74 (106) 98 Nasal Cannula 3.00 05/15/19 20:29 37.0 72 20 154/65 (94) 99 Nasal Cannula 3.00 05/15/19 20:26 Nasal Cannula 3.00 05/15/19 19:44 91 Nasal Cannula 3.50 05/15/19 19:00 77 05/15/19 18:19 84 171/79 (109) 05/15/19 16:40 182/70 (107) 05/15/19 16:39 182/70 (107) 05/15/19 16:24 36.4 76 20 191/78 (115) 99 Nasal Cannula 3.00 05/15/19 15:06 94 Nasal Cannula 3.50 05/15/19 12:18 82 05/15/19 12:00 36.6 86 20 164/77 (106) 97 Nasal Cannula 3.00 I & O 05/16/19 07:00 Intake Total 3920 ml Output Total 1600 ml Balance 2320 ml Capillary Refill : Less Than 3 Seconds General Appearance: No Apparent Distress, WD/WN HEENT: Normal ENT Inspection Neck: Full Range of Motion Respiratory: No Accessory Muscle Use, No Respiratory Distress, Decreased Breath Sounds Cardiovascular: Regular Rate, Rhythm, No Murmur Gastrointestinal: non tender, soft Results Lab Laboratory Tests 05/16/19 05:30 Laboratory Tests 05/16/19 05:30: White Blood Count 7.7, Red Blood Count 3.20L, Hemoglobin 8.9L, Hematocrit 32L, Mean Corpuscular Volume 101H, Mean Corpuscular Hemoglobin 28, Mean Corpuscular Hemoglobin Concent 28L, Red Cell Distribution Width 16.5H, Platelet Count 97L, Mean Platelet Volume 10.8H, Neutrophils (%) (Auto) 85H, Lymphocytes (%) (Auto) 9L, Monocytes (%) (Auto) 4, Eosinophils (%) (Auto) 2, Basophils (%) (Auto) 0, Neutrophils # (Auto) 6.5, Lymphocytes # (Auto) 0.7L, Monocytes # (Auto) 0.3, Eosinophils # (Auto) 0.2, Basophils # (Auto) 0.0, Sodium Level 150H, Potassium Level 4.3, Chloride Level 115H, Carbon Dioxide Level 29, Anion Gap 6, Blood Urea Nitrogen 36H, Creatinine 1.44H, Estimat Glomerular Filtration Rate 36, BUN/Creatinine Ratio 25, Glucose Level 141H, Calcium Level 8.7, Phosphorus Level 2.9, Magnesium Level 2.3 Assessment/Plan Assessment/Plan Assess & Plan/Chief Complaint Incarcerated umbilical hernia. COPD. Hypertension. Renal insufficiency. . 05/16/19. Umbilical hernia. COPD. Hypertension. Renal insufficiency. Clinical Quality Measures Admission Status Admission Dx Small bowel obstruction. Incarcerated umbilical hernia. COPD. Renal insufficiency. Hyperkalemia. Hypertension DVT/VTE Risk/Contraindication: Risk Factor Score Per Nursin RFS Level Per Nursing on Admit: 4+=Very High Contraindications-Mechi: Other *list below* Other: MAY NEED SURGERY PER DR. STACK / RUSTY LEAL AT THIS TIME AURORA STACK DO May 16, 2019 08:23 POS
[2019-05-16] MEDS ORDERED: ACETAMINOPHEN 325 MG TABLET PO PRN (08:30)
[2019-05-16] MEDS ORDERED: guaiFENesin (MUCINEX) 600 MG TAB PO PRN (08:30)
[2019-05-16 08:37] VITALS: BP 188/76
--- NOTE | 2019-05-16 08:46 | Pulmonary Progress Note ---
RINA RUCKER A MEDICAL STUDENT 05/16/19 0846: Subjective Date Seen by a Provider: May 16, 2019 Time Seen by a Provider: 08:41 Sepsis Event Evaluation Height, Weight, BMI Height: 5'4.00" Weight: 246lbs. 2.0oz. 111.610548ea; 40.77 BMI Method:Stated Exam Exam Vital Signs Date Time Temp Pulse Resp B/P (MAP) Pulse Ox O2 Delivery O2 Flow Rate FiO2 05/16/19 08:37 36.4 83 20 188/76 (113) 98 Nasal Cannula 3.00 05/16/19 07:00 88 05/16/19 04:10 36.8 75 20 153/65 (94) 97 Nasal Cannula 3.00 05/16/19 02:47 97 Nasal Cannula 3.50 05/16/19 01:00 67 05/15/19 23:00 36.4 76 18 170/74 (106) 98 Nasal Cannula 3.00 05/15/19 20:29 37.0 72 20 154/65 (94) 99 Nasal Cannula 3.00 05/15/19 20:26 Nasal Cannula 3.00 05/15/19 19:44 91 Nasal Cannula 3.50 05/15/19 19:00 77 05/15/19 18:19 84 171/79 (109) 05/15/19 16:40 182/70 (107) 05/15/19 16:39 182/70 (107) 05/15/19 16:24 36.4 76 20 191/78 (115) 99 Nasal Cannula 3.00 05/15/19 15:06 94 Nasal Cannula 3.50 05/15/19 12:18 82 05/15/19 12:00 36.6 86 20 164/77 (106) 97 Nasal Cannula 3.00 I & O 05/16/19 07:00 Intake Total 3920 ml Output Total 1600 ml Balance 2320 ml Height & Weight Height: 5'4.00" Weight: 246lbs. 2.0oz. 111.402956ik; 40.77 BMI Method:Stated General Appearance: No Apparent Distress, WD/WN HEENT: Normal ENT Inspection Neck: Full Range of Motion Respiratory: No Accessory Muscle Use, No Respiratory Distress, Decreased Breath Sounds Cardiovascular: Regular Rate, Rhythm, No Murmur Capillary Refill: Less Than 3 Seconds Peripheral Pulses: 2+ Radial Pulses (R), 2+ Radial Pulses (L) Gastrointestinal: non tender, soft Extremity: Pedal Edema, Other (Pt has stasis dermatitis and edema of both legs and feet) Neurologic/Psychiatric: Alert, Oriented x3, Normal Mood/Affect Skin: Erythema (Legs bilaterally ) Lymphatic: No Adenopathy Results Lab Laboratory Tests 05/14/19 11:02 05/14/19 18:00 05/15/19 05:10 05/16/19 05:30 Assessment/Plan Assessment/Plan Hx of COPD - -Pt is on 3 liters of oxygen with Sp02 98% Constipation r/o SBO -Surgery following -no plan for surgery currently -small bowel follow through showed no obstruction -ng was removed -pt has had bowel movements Hypernatremia - worsening -Sodium now at 150 -continue IVF to D51/2 NS Hyperchloremia - worsening Renal failure - improving -IVF and monitor Ventral hernia Obesity PT is going to be moderate risk for surgery and post op respiratory complications. ESTRELLITA PITT DO 05/16/19 0900: Subjective Subjective/Events-last exam No plan for surgery at this time. Exam Exam General Appearance: No Apparent Distress, WD/WN HEENT: Normal ENT Inspection Neck: Full Range of Motion Respiratory: No Accessory Muscle Use, No Respiratory Distress, Decreased Breath Sounds Cardiovascular: Regular Rate, Rhythm, No Murmur Gastrointestinal: non tender, soft Extremity: Pedal Edema Neurologic/Psychiatric: Alert, Oriented x3, Normal Mood/Affect Lymphatic: No Adenopathy Assessment/Plan Assessment/Plan Hx of COPD - -Pt is on 3 liters of oxygen with Sp02 98% Constipation r/o SBO -Surgery following -no plan for surgery currently -small bowel follow through showed no obstruction -ng was removed -pt has had bowel movements Hypernatremia - worsening -Sodium now at 150 -Change IVF to D51/2 NS -Change to D5W at 150cc/hr Hyperchloremia - worsening Renal failure - improving -IVF and monitor Ventral hernia Obesity PT is going to be moderate risk for surgery and post op respiratory complications. RINA RUCKER A MEDICAL STUDENT May 16, 2019 08:46 ESTRELLITA YEN DO May 16, 2019 09:00 POS
[2019-05-16] MEDS: D5W 1000 ML IV SOLUTION 1,000 ML IV SCH ×3 (10:37→20:31)
[2019-05-16] MEDS: OMEGA 3 (FISH OIL) 1000 MG CAP PO SCH (10:37)
[2019-05-16] MEDS: meTOprolol TARTRATE 25 MG (LOPRESSOR) TABLET PO SCH ×2 (10:37→20:25)
[2019-05-16] MEDS: ENOXAPARIN 40 MG/0.4 ML (LOVENOX) SYR SC SCH ×2 (10:37→20:26)
[2019-05-16] MEDS: PANTOPRAZOLE 40 MG (PROTONIX) TAB PO SCH (10:37)
[2019-05-16] MEDS: ZINC OXIDE 16% OINT (BUTT PASTE) 113 GM TUBE TOP SCH ×3 (10:38→20:26)
[2019-05-16] MEDS: fentaNYL INJECTION 100 MCG/2 ML AMP IV PRN ×2 (10:40→20:31)
[2019-05-16] MEDS: RT-ALBUTEROL/IPRATROPIUM 3 ML (DUONEB) VIAL IH SCH ×3 (12:20→19:50)
[2019-05-16 12:31] VITALS: BP 162/74
[2019-05-16 16:00] VITALS: BP 163/76
[2019-05-16] MEDS ORDERED: HYDROcodone/APAP 7.5 MG/325 MG (LORTAB, LORCET PLUS) TABLET PO ONE (18:04)
--- NOTE | 2019-05-16 19:39 | Progress Note - Surgery ---
PEDRO DASILVA [facility] [place] 05/16/19 1939: Subjective Date Seen by a Provider: May 16, 2019 Time Seen by a Provider: 07:15 Subjective/Events-last exam Pt is alert and oriented and in no acute distress, no family at bedside Pt states she has abdominal pain Tolerating clear diet Urinating and having bowel movements without issue Denies F/C, N/V, and chest pain. Does feel short of breath due to COPD Objective Exam Vital Signs Date Time Temp Pulse Resp B/P (MAP) Pulse Ox O2 Delivery O2 Flow Rate FiO2 05/16/19 16:00 36.4 65 20 163/76 (105) 97 Nasal Cannula 2.00 05/16/19 15:19 98 Nasal Cannula 3.00 05/16/19 12:38 65 05/16/19 12:31 36.6 69 18 162/74 (103) 100 Nasal Cannula 3.00 05/16/19 08:37 36.4 83 20 188/76 (113) 98 Nasal Cannula 3.00 05/16/19 08:00 Nasal Cannula 3.00 05/16/19 07:00 88 05/16/19 04:10 36.8 75 20 153/65 (94) 97 Nasal Cannula 3.00 05/16/19 02:47 97 Nasal Cannula 3.50 05/16/19 01:00 67 05/15/19 23:00 36.4 76 18 170/74 (106) 98 Nasal Cannula 3.00 05/15/19 20:29 37.0 72 20 154/65 (94) 99 Nasal Cannula 3.00 05/15/19 20:26 Nasal Cannula 3.00 05/15/19 19:44 91 Nasal Cannula 3.50 I & O 05/16/19 07:00 Intake Total 3920 ml Output Total 1600 ml Balance 2320 ml Capillary Refill : Less Than 3 Seconds General Appearance: No Apparent Distress, WD/WN HEENT: Normal ENT Inspection Neck: Full Range of Motion Respiratory: No Accessory Muscle Use, No Respiratory Distress, Decreased Breath Sounds Cardiovascular: Regular Rate, Rhythm, No Murmur Peripheral Pulses: 2+ Radial Pulses (R), 2+ Radial Pulses (L) Gastrointestinal: non tender, soft Extremity: Pedal Edema Neurologic/Psychiatric: Alert, Oriented x3, Normal Mood/Affect Skin: Erythema (Legs bilaterally ) Lymphatic: No Adenopathy Results Lab Laboratory Tests 05/16/19 05:30: White Blood Count 7.7, Red Blood Count 3.20L, Hemoglobin 8.9L, Hematocrit 32L, Mean Corpuscular Volume 101H, Mean Corpuscular Hemoglobin 28, Mean Corpuscular Hemoglobin Concent 28L, Red Cell Distribution Width 16.5H, Platelet Count 97L, Mean Platelet Volume 10.8H, Neutrophils (%) (Auto) 85H, Lymphocytes (%) (Auto) 9L, Monocytes (%) (Auto) 4, Eosinophils (%) (Auto) 2, Basophils (%) (Auto) 0, Neutrophils # (Auto) 6.5, Lymphocytes # (Auto) 0.7L, Monocytes # (Auto) 0.3, Eosinophils # (Auto) 0.2, Basophils # (Auto) 0.0, Sodium Level 150H, Potassium Level 4.3, Chloride Level 115H, Carbon Dioxide Level 29, Anion Gap 6, Blood Urea Nitrogen 36H, Creatinine 1.44H, Estimat Glomerular Filtration Rate 36, BU N/Creatinine Ratio 25, Glucose Level 141H, Calcium Level 8.7, Phosphorus Level 2.9, Magnesium Level 2.3 Assessment/Plan Assessment/Plan Assessment/Plan Incarcerated umbilical hernia. COPD. Hypertension. Renal insufficiency. - Small bowel follow through showed no obstruction, patient is having bowel movements and is tolerating clear diet without issue. She still has some abdominal pain, but it is controlled. There is no surgical intervention needed at this time. - Continue medical management for chronic diseases Clinical Quality Measures DVT/VTE Risk/Contraindication: Risk Factor Score Per Nursin RFS Level Per Nursing on Admit: 4+=Very High Contraindications-Mechi: Other *list below* Other: MAY NEED SURGERY PER DR. STACK / NO LOVENOX AT THIS TIME JARED ANTONIO DO 05/16/192137: Subjective Subjective/Events-last exam Minimal abdominal pain, burning. Almost resolved. Tolerating clears. Breathing always bad she states. Denies n/v fever sweats chills or chest pain. Objective Exam General Appearance: Obese HEENT: Normal ENT Inspection Neck: Full Range of Motion Respiratory: No Accessory Muscle Use, No Respiratory Distress, Decreased Breath Sounds Cardiovascular: Regular Rate, Rhythm Gastrointestinal: non tender, soft, hernia (incarcerated, no discomfort with palpation) Extremity: Pedal Edema Neurologic/Psychiatric: Alert, Oriented x3, Normal Mood/Affect Skin: Erythema (Legs bilaterally ) Lymphatic: No Adenopathy Assessment/Plan Assessment/Plan Assessment/Plan Incarcerated umbilical hernia. COPD. Hypertension. Renal insufficiency. tolerating liquids, advance as tolerates. minimal abdominal discomfort, burning, hernia has small bowel incarcerated through it but contrast study no obstruction no surgical intervention needed at this time, we discussed surgical options and risks and benefits. also discussed ways to make ways to make it safer and less risks of recurrence if we did proceed. Supervisory-Addendum Brief Verification & Attestation Participated in pt care: history, MDM, physical Personally performed: exam, history, MDM, supervision of care Care discussed with: Medical Student Procedures: n/a Results interpretation: Verified all documentation Verification and Attestation of Medical Student E/M Service A medical student performed and documented this service in my presence. I reviewed and verified all information documented by the medical student and made modifications to such information, when appropriate. I personally performed the physical exam and medical decision making. Jared Antonio, May 16, 2019,21:38 PEDRO DASILVA [facility] [place] May 16, 2019 19:39 JARED ELENA DO May 16, 2019 21:38 POS
[2019-05-16 19:56] VITALS: BP 173/72
[2019-05-16 23:20] VITALS: BP 184/84
[2019-05-17] MEDS: fentaNYL INJECTION 100 MCG/2 ML AMP IV PRN (02:36)
[2019-05-17] MEDS: D5W 1000 ML IV SOLUTION 1,000 ML IV SCH (02:39)
[2019-05-17 04:50] VITALS: BP 172/74
[2019-05-17 05:16] LABS: BASOPHILS % (AUTO) 0 % (0-10); EOSINOPHILS # (AUTO) 0.2 10^3/uL (0.0-0.3); EOSINOPHILS % (AUTO) 3 % (0-10); HEMATOCRIT 31 % (35-52); HEMOGLOBIN 8.8 G/DL (11.5-16.0); LYMPHOCYTES # (AUTO) 0.7 X 10^3 (1.0-4.0); LYMPHOCYTES % (AUTO) 11 % (12-44); MEAN CORPUSCULAR HEMOGLOBIN 28 PG (25-34); MEAN CORPUSCULAR HGB CONC 29 G/DL (32-36); MEAN CORPUSCULAR VOLUME 99 FL (80-99); MEAN PLATELET VOLUME 10.5 FL (7.4-10.4); MONOCYTES # (AUTO) 0.3 X 10^3 (0.0-1.0); MONOCYTES % (AUTO) 4 % (0-12); NEUTROPHILS # (AUTO) 5.7 X 10^3 (1.8-7.8); NEUTROPHILS % (AUTO) 83 % (42-75); PLATELET COUNT 84 10^3/uL (130-400); RED CELL DISTRIBUTION WIDTH 15.8 % (10.0-14.5); WHITE BLOOD COUNT 6.9 10^3/uL (4.3-11.0)
[2019-05-17 05:33] LABS: CALCIUM 8.4 MG/DL (8.5-10.1); CREATININE SERUM 1.25 MG/DL (0.60-1.30); MAGNESIUM 1.9 MG/DL (1.6-2.4); PHOSPHORUS 2.1 MG/DL (2.3-4.7); POTASSIUM 3.4 MMOL/L (3.6-5.0)
--- NOTE | 2019-05-17 06:23 | Pulmonary Progress Note ---
Subjective Time Seen by a Provider: 06:23 Sepsis Event Evaluation Height, Weight, BMI Height: 5'4.00" Weight: 246lbs. 2.0oz. 111.526485dd; 40.77 BMI Method:Stated Exam Exam Vital Signs Date Time Temp Pulse Resp B/P (MAP) Pulse Ox O2 Delivery O2 Flow Rate FiO2 05/17/19 04:50 36.7 75 20 172/74 (106) 93 Nasal Cannula 2.00 05/17/19 01:00 67 05/16/19 23:20 36.9 66 21 184/84 (117) 95 Nasal Cannula 2.00 05/16/19 20:00 Nasal Cannula 3.00 05/16/19 19:56 36.7 63 20 173/72 (105) 91 Nasal Cannula 2.00 05/16/19 19:50 98 Nasal Cannula 3.00 05/16/19 19:00 65 05/16/19 16:00 36.4 65 20 163/76 (105) 97 Nasal Cannula 2.00 05/16/19 15:19 98 Nasal Cannula 3.00 05/16/19 12:38 65 05/16/19 12:31 36.6 69 18 162/74 (103) 100 Nasal Cannula 3.00 05/16/19 08:37 36.4 83 20 188/76 (113) 98 Nasal Cannula 3.00 05/16/19 08:00 Nasal Cannula 3.00 05/16/19 07:00 88 I & O 05/17/19 07:00 Intake Total 2150 ml Output Total 204 ml Balance 1946 ml Height & Weight Height: 5'4.00" Weight: 246lbs. 2.0oz. 111.314694qx; 40.77 BMI Method:Stated General Appearance: Obese HEENT: Normal ENT Inspection Neck: Full Range of Motion Respiratory: No Accessory Muscle Use, No Respiratory Distress, Decreased Breath Sounds Cardiovascular: Regular Rate, Rhythm Capillary Refill: Less Than 3 Seconds Peripheral Pulses: 2+ Radial Pulses (R), 2+ Radial Pulses (L) Gastrointestinal: non tender, soft, hernia (incarcerated, no discomfort with palpation) Extremity: Pedal Edema Neurologic/Psychiatric: Alert, Oriented x3, Normal Mood/Affect Skin: Erythema (Legs bilaterally ) Lymphatic: No Adenopathy Results Lab Laboratory Tests 05/16/19 05:30 05/17/19 04:43 Assessment/Plan Assessment/Plan Hx of COPD - -Pt is on 3 liters of oxygen with Sp02 98% Constipation r/o SBO -Surgery following -no plan for surgery currently -small bowel follow through showed no obstruction -ng was removed -pt has had bowel movements Hypernatremia -improving -decrease IVF to D51/2 NS 30 cc/hr Hyperchloremia - worsening Renal failure - improving -IVF and monitor Ventral hernia Obesity ESTRELLITA PITT DO May 17, 2019 06:23 POS
[2019-05-17] MEDS ORDERED: POTASSIUM PHOSPHATE INJ 30 MM in NS (IVPB) 250 ML IV ONE (06:30)
[2019-05-17] MEDS ORDERED: KCL 20 MEQ TAB (K-DUR) PO ONE (06:30)
[2019-05-17] MEDS: OMEGA 3 (FISH OIL) 1000 MG CAP PO SCH (06:33)
[2019-05-17] MEDS: RT-ALBUTEROL/IPRATROPIUM 3 ML (DUONEB) VIAL IH SCH ×4 (06:52→19:11)
[2019-05-17 08:00] VITALS: BP 178/76
[2019-05-17] MEDS: PANTOPRAZOLE 40 MG (PROTONIX) TAB PO SCH (08:16)
[2019-05-17] MEDS: ENOXAPARIN 40 MG/0.4 ML (LOVENOX) SYR SC SCH ×2 (08:16→20:13)
[2019-05-17] MEDS: meTOprolol TARTRATE 25 MG (LOPRESSOR) TABLET PO SCH ×2 (08:16→20:13)
[2019-05-17] MEDS: ZINC OXIDE 16% OINT (BUTT PASTE) 113 GM TUBE TOP SCH ×3 (08:18→20:15)
[2019-05-17] MEDS ORDERED: ONDANSETRON 4 MG/2 ML (SDV) Z0FRAN ONE (11:10)
[2019-05-17] MEDS ORDERED: ONDANSETRON 4 MG/2 ML (SDV) Z0FRAN IVP PRN (11:15)
--- NOTE | 2019-05-17 11:39 | Progress Note ---
Subjective Date Seen by a Provider: May 17, 2019 Time Seen by a Provider: 11:00 Subjective/Events-last exam doing better. mild abd pain however much better. states having multiple BM's. tolerating clears. Objective Exam Vital Signs Date Time Temp Pulse Resp B/P (MAP) Pulse Ox O2 Delivery O2 Flow Rate FiO2 05/17/19 08:00 91 Nasal Cannula 2.00 05/17/19 08:00 36.7 87 16 178/76 (110) 91 Nasal Cannula 2.00 05/17/19 07:00 80 05/17/19 06:52 98 Nasal Cannula 2.00 05/17/19 04:50 36.7 75 20 172/74 (106) 93 Nasal Cannula 2.00 05/17/19 01:00 67 05/16/19 23:20 36.9 66 21 184/84 (117) 95 Nasal Cannula 2.00 05/16/19 20:00 Nasal Cannula 3.00 05/16/19 19:56 36.7 63 20 173/72 (105) 91 Nasal Cannula 2.00 05/16/19 19:50 98 Nasal Cannula 3.00 05/16/19 19:00 65 05/16/19 16:00 36.4 65 20 163/76 (105) 97 Nasal Cannula 2.00 05/16/19 15:19 98 Nasal Cannula 3.00 05/16/19 12:38 65 05/16/19 12:31 36.6 69 18 162/74 (103) 100 Nasal Cannula 3.00 I & O 05/17/19 07:00 Intake Total 2150 ml Output Total 204 ml Balance 1946 ml Capillary Refill : Less Than 3 Seconds General Appearance: No Apparent Distress HEENT: PERRL/EOMI Neck: Full Range of Motion Respiratory: Decreased Breath Sounds, Rhonci, Wheezing Cardiovascular: Regular Rate, Rhythm Gastrointestinal: normal bowel sounds, soft Extremity: Normal Capillary Refill Neurologic/Psychiatric: Alert, Oriented x3 Skin: Normal Color Lymphatic: No Adenopathy Results Lab Laboratory Tests 05/17/19 04:43: White Blood Count 6.9, Red Blood Count 3.13L, Hemoglobin 8.8L, Hematocrit 31L, Mean Corpuscular Volume 99, Mean Corpuscular Hemoglobin 28, Mean Corpuscular Hemoglobin Concent 29L, Red Cell Distribution Width 15.8H, Platelet Count 84L, Mean Platelet Volume 10.5H, Neutrophils (%) (Auto) 83H, Lymphocytes (%) (Auto) 11L, Monocytes (%) (Auto) 4, Eosinophils (%) (Auto) 3, Basophils (%) (Auto) 0, Neutrophils # (Auto) 5.7, Lymphocytes # (Auto) 0.7L, Monocytes # (Auto) 0.3, Eosinophils # (Auto) 0.2, Basophils # (Auto) 0.0, Sodium Level 143, Potassium Level 3.4L, Chloride Level 108H, Carbon Dioxide Level 25, Anion Gap 10, Blood Urea Nitrogen 27H, Creatinine 1.25, Estimat Glomerular Filtration Rate 42, BUN/Creatinine Ratio 22, Glucose Level 145H, Calcium Level 8.4L, Phosphorus Level 2.1L, Magnesium Level 1.9 Assessment/Plan Assessment/Plan Assess & Plan/Chief Complaint PSBO secondary large reducible ventral abd inc hernia. poor surgical candidate. tolerating clears. dys2 diet. Clinical Quality Measures DVT/VTE Risk/Contraindication: Risk Factor Score Per Nursin RFS Level Per Nursing on Admit: 4+=Very High Contraindications-Mechi: Other *list below* Other: MAY NEED SURGERY PER DR. STACK / RUSTY LEAL AT THIS TIME ROLANDO FUENTES MD May 17, 2019 11:39 POS
[2019-05-17] MEDS: METOCLOPRAMIDE INJ 10 MG/2 ML (REGLAN) IVP PRN (11:55)
[2019-05-17 12:00] VITALS: BP 176/74
[2019-05-17] MEDS ORDERED: CALCIUM CARBONATE 500 MG (TUMS) TAB.CHEW PO PRN (12:15)
--- NOTE | 2019-05-17 12:22 | Progress Note - Hospitalist ---
Subjective HPI/CC On Admission Date Seen by Provider: May 17, 2019 Time Seen by Provider: 12:17 Subjective/Events-last exam Pt reports persistent nausea. Now having diarrhea though and heartburn. Objective Exam Vital Signs Vital Signs Date Time Temp Pulse Resp B/P (MAP) Pulse Ox O2 Delivery O2 Flow Rate FiO2 05/17/19 08:00 91 Nasal Cannula 2.00 05/17/19 08:00 36.7 87 16 178/76 (110) Capillary Refill : Less Than 3 Seconds General Appearance: No Apparent Distress, Chronically ill, Obese Respiratory: Lungs Clear, No Accessory Muscle Use, No Respiratory Distress Cardiovascular: Regular Rate, Rhythm, No Murmur Gastrointestinal: Normal Bowel Sounds, Soft Results/Procedures Lab Laboratory Tests 05/17/19 04:43 Patient resulted labs reviewed. Assessment/Plan Assessment and Plan Assess & Plan/Chief Complaint Small bowel obstruction- now resolved Diarrhea- Monitor for now, continue IVF Incarcerated umbilical hernia- Surgery consulted, appreciate recs, fentanyl for pain COPD- stable, Pulm consulted, appreciate recs Renal insufficiency- resolving with IVF, trend Hyperkalemia- resolved, and hypokalemia currently will replace Hypertension- continue home meds Thrombocytopenia- trend, if continues to drop will need to DC lovenox GERD- Tums added, already on PPI Anemia- likely of chronic disease, trend Clinical Quality Measures DVT/VTE Risk/Contraindication: Risk Factor Score Per Nursin RFS Level Per Nursing on Admit: 4+=Very High Contraindications-Mechi: Other *list below* Other: MAY NEED SURGERY PER DR. STACK / NO LOVENOX AT THIS TIME BRANDIE OTT MD May 17, 2019 12:22 POS
[2019-05-17 15:46] VITALS: BP 133/61
[2019-05-17 19:02] VITALS: BP 137/67
--- NOTE | 2019-05-17 20:18 | NUR ---
patient was given an unscheduled breathing tx since her 1900 svn was non-administered due to nausea/vomiting.
[2019-05-18 00:20] VITALS: BP 176/82
[2019-05-18] MEDS: D5W 1000 ML IV SOLUTION 1,000 ML IV SCH (00:26)
[2019-05-18 04:49] VITALS: BP 151/85
[2019-05-18 05:33] LABS: BASOPHILS % (AUTO) 0 % (0-10); EOSINOPHILS # (AUTO) 0.2 10^3/uL (0.0-0.3); EOSINOPHILS % (AUTO) 3 % (0-10); HEMATOCRIT 31 % (35-52); LYMPHOCYTES # (AUTO) 0.8 X 10^3 (1.0-4.0); LYMPHOCYTES % (AUTO) 12 % (12-44); MEAN CORPUSCULAR HEMOGLOBIN 28 PG (25-34); MEAN CORPUSCULAR HGB CONC 29 G/DL (32-36); MEAN CORPUSCULAR VOLUME 97 FL (80-99); MEAN PLATELET VOLUME 11.1 FL (7.4-10.4); MONOCYTES # (AUTO) 0.3 X 10^3 (0.0-1.0); MONOCYTES % (AUTO) 4 % (0-12); NEUTROPHILS # (AUTO) 5.5 X 10^3 (1.8-7.8); NEUTROPHILS % (AUTO) 81 % (42-75); PLATELET COUNT 83 10^3/uL (130-400); RED CELL DISTRIBUTION WIDTH 16.1 % (10.0-14.5); WHITE BLOOD COUNT 6.9 10^3/uL (4.3-11.0)
[2019-05-18 05:54] LABS: CALCIUM 8.3 MG/DL (8.5-10.1); CREATININE SERUM 1.36 MG/DL (0.60-1.30); MAGNESIUM 1.8 MG/DL (1.6-2.4); PHOSPHORUS 3.5 MG/DL (2.3-4.7); POTASSIUM 4.1 MMOL/L (3.6-5.0)
[2019-05-18] MEDS: OMEGA 3 (FISH OIL) 1000 MG CAP PO SCH (06:13)
--- NOTE | 2019-05-18 06:47 | Pulmonary Progress Note ---
Subjective Time Seen by a Provider: 06:46 Sepsis Event Evaluation Height, Weight, BMI Height: 5'4.00" Weight: 246lbs. 2.0oz. 111.088706eu; 40.77 BMI Method:Stated Exam Exam Vital Signs Date Time Temp Pulse Resp B/P (MAP) Pulse Ox O2 Delivery O2 Flow Rate FiO2 05/18/19 01:00 70 05/18/19 00:20 36.9 67 21 176/82 (113) 97 Nasal Cannula 2.00 05/17/19 20:14 93 Nasal Cannula 2.00 05/17/19 20:00 Nasal Cannula 3.00 05/17/19 19:11 90 Nasal Cannula 2.00 05/17/19 19:02 37.0 73 18 137/67 (90) 95 Nasal Cannula 2.00 05/17/19 19:00 73 05/17/19 15:46 36.4 62 18 133/61 (85) 89 Nasal Cannula 2.00 05/17/19 14:51 98 Nasal Cannula 2.00 05/17/19 13:00 68 05/17/19 12:00 36.6 73 16 176/74 (108) 89 Nasal Cannula 2.00 05/17/19 08:00 91 Nasal Cannula 2.00 05/17/19 08:00 36.7 87 16 178/76 (110) 91 Nasal Cannula 2.00 05/17/19 07:00 80 05/17/19 06:52 98 Nasal Cannula 2.00 I & O 05/18/19 06:59 Intake Total 1525 ml Output Total 375 ml Balance 1150 ml Height & Weight Height: 5'4.00" Weight: 246lbs. 2.0oz. 111.546893lm; 40.77 BMI Method:Stated General Appearance: No Apparent Distress, Chronically ill, Obese HEENT: PERRL/EOMI Neck: Full Range of Motion Respiratory: Lungs Clear, No Accessory Muscle Use, No Respiratory Distress Cardiovascular: Regular Rate, Rhythm, No Murmur Capillary Refill: Less Than 3 Seconds Peripheral Pulses: 2+ Radial Pulses (R), 2+ Radial Pulses (L) Gastrointestinal: normal bowel sounds, soft Extremity: Normal Capillary Refill Neurologic/Psychiatric: Alert, Oriented x3 Skin: Normal Color Lymphatic: No Adenopathy Results Lab Laboratory Tests 05/17/19 04:43 05/18/19 05:13 Assessment/Plan Assessment/Plan Hx of COPD - -Pt is on 3 liters of oxygen with Sp02 98% Constipation r/o SBO -Surgery following -no plan for surgery currently -small bowel follow through showed no obstruction -ng was removed -pt has had bowel movements Hypernatremia -improving - IVF to D51/2 NS 30 cc/hr Hyperchloremia - worsening Renal failure - improving -IVF and monitor Ventral hernia Obesity ESTRELLITA PITT DO May 18, 2019 06:47 POS
[2019-05-18] MEDS: RT-ALBUTEROL/IPRATROPIUM 3 ML (DUONEB) VIAL IH SCH ×4 (07:50→20:15)
[2019-05-18 08:00] VITALS: BP 162/84
[2019-05-18] MEDS: meTOprolol TARTRATE 25 MG (LOPRESSOR) TABLET PO SCH ×2 (08:38→20:41)
[2019-05-18] MEDS: PANTOPRAZOLE 40 MG (PROTONIX) TAB PO SCH (08:38)
[2019-05-18] MEDS: ZINC OXIDE 16% OINT (BUTT PASTE) 113 GM TUBE TOP SCH ×3 (08:39→20:41)
[2019-05-18] MEDS: ENOXAPARIN 40 MG/0.4 ML (LOVENOX) SYR SC SCH ×2 (08:39→20:40)
[2019-05-18] MEDS: fentaNYL INJECTION 100 MCG/2 ML AMP IV PRN ×3 (08:39→20:40)
--- NOTE | 2019-05-18 10:56 | Progress Note ---
Subjective Date Seen by a Provider: May 18, 2019 Time Seen by a Provider: 10:30 Subjective/Events-last exam Patient seen with Dr. Harris. Patient reports having episodes of Nausea and vomiting, but RN reports that she is spitting up flem. Otherwise, tolerating diet and having BMs. Does report periods of abdominal pain. Objective Exam Vital Signs Date Time Temp Pulse Resp B/P (MAP) Pulse Ox O2 Delivery O2 Flow Rate FiO2 05/18/19 08:00 36.7 77 20 162/84 (110) 99 Nasal Cannula 3.00 05/18/19 08:00 99 Nasal Cannula 3.00 05/18/19 07:51 90 Nasal Cannula 2.00 05/18/19 07:00 68 05/18/19 04:49 36.6 69 21 151/85 (107) 97 Nasal Cannula 2.00 05/18/19 01:00 70 05/18/19 00:20 36.9 67 21 176/82 (113) 97 Nasal Cannula 2.00 05/17/19 20:14 93 Nasal Cannula 2.00 05/17/19 20:00 Nasal Cannula 3.00 05/17/19 19:11 90 Nasal Cannula 2.00 05/17/19 19:02 37.0 73 18 137/67 (90) 95 Nasal Cannula 2.00 05/17/19 19:00 73 05/17/19 15:46 36.4 62 18 133/61 (85) 89 Nasal Cannula 2.00 05/17/19 14:51 98 Nasal Cannula 2.00 05/17/19 13:00 68 05/17/19 12:00 36.6 73 16 176/74 (108) 89 Nasal Cannula 2.00 I & O 05/18/19 07:00 Intake Total 1525 ml Output Total 375 ml Balance 1150 ml Capillary Refill : Less Than 3 Seconds General Appearance: No Apparent Distress, WD/WN Neck: Full Range of Motion, Normal Inspection, Supple Respiratory: Normal Breath Sounds, No Accessory Muscle Use, No Respiratory Distress Cardiovascular: Regular Rate, Rhythm, No Murmur Gastrointestinal: normal bowel sounds, soft, tenderness, other (Ventral abdominal incisional hernia that is painful to palpation.) Extremity: Normal Capillary Refill, No Calf Tenderness Neurologic/Psychiatric: Alert, Oriented x3 Skin: Normal Color, Warm/Dry Results Lab Laboratory Tests 05/18/19 05:13: White Blood Count 6.9, Red Blood Count 3.22L, Hemoglobin 9.0L, Hematocrit 31L, Mean Corpuscular Volume 97, Mean Corpuscular Hemoglobin 28, Mean Corpuscular Hemoglobin Concent 29L, Red Cell Distribution Width 16.1H, Platelet Count 83L, Mean Platelet Volume 11.1H, Neutrophils (%) (Auto) 81H, Lymphocytes (%) (Auto) 12, Monocytes (%) (Auto) 4, Eosinophils (%) (Auto) 3, Basophils (%) (Auto) 0, Neutrophils # (Auto) 5.5, Lymphocytes # (Auto) 0.8L, Monocytes # (Auto) 0.3, Eosinophils # (Auto) 0.2, Basophils # (Auto) 0.0, Sodium Level 143, Potassium Level 4.1, Chloride Level 110H, Carbon Dioxide Level 24, Anion Gap 9, Blood Urea Nitrogen 23H, Creatinine 1.36H, Estimat Glomerular Filtration Rate 38, BUN/Creatinine Ratio 17, Glucose Level 110H, Calcium Level 8.3L, Phosphorus Level 3.5, Magnesium Level 1.8 Assessment/Plan Assessment/Plan Assess & Plan/Chief Complaint A 68 year old female with PSBO secondary large reducible ventral abd inc hernia. poor surgical candidate. tolerating clears. dys2 diet. Will proceed with abdominal binder to help support hernia and help with discomfort. Clinical Quality Measures DVT/VTE Risk/Contraindication: Risk Factor Score Per Nursin RFS Level Per Nursing on Admit: 4+=Very High Contraindications-Mechi: Other *list below* Other: MAY NEED SURGERY PER DR. STACK / RUSTY LEAL AT THIS TIME CHRISTIAN SIMMONS STUDENT AFFAIRS VICE PRESIDENT May 18, 2019 10:56 POS
--- NOTE | 2019-05-18 11:53 | Progress Note - Hospitalist ---
Subjective HPI/CC On Admission Date Seen by Provider: May 18, 2019 Time Seen by Provider: 11:50 Subjective/Events-last exam patient reports feeling better. Pain improving. Has abdominal binder in place. has questions about a study done on her heart. reviewed all exams done with her while at bedside the patient thinks there is another test pending. Objective Exam Vital Signs Vital Signs Date Time Temp Pulse Resp B/P (MAP) Pulse Ox O2 Delivery O2 Flow Rate FiO2 05/18/19 08:00 36.7 77 20 162/84 (110) 99 Nasal Cannula 3.00 Capillary Refill : Less Than 3 Seconds General Appearance: No Apparent Distress, Obese Respiratory: Lungs Clear, No Respiratory Distress Cardiovascular: Regular Rate, Rhythm, No Murmur Gastrointestinal: Normal Bowel Sounds; No Guarding, No Rebound; Tenderness (mild) Neurologic/Psychiatric: Alert, Oriented x3 Results/Procedures Lab Laboratory Tests 05/18/19 05:13 Patient resulted labs reviewed. Assessment/Plan Assessment and Plan Assess & Plan/Chief Complaint Small bowel obstruction- now resolved Diarrhea- Monitor for now, continue IVF Incarcerated umbilical hernia- Surgery consulted, appreciate recs, fentanyl for pain COPD- stable, Pulm consulted, appreciate recs Renal insufficiency- Creatinine stable Hypokalemia- resolved Hypertension- continue home meds Thrombocytopenia- trend,stable GERD- Tums added, already on PPI Anemia- likely of chronic disease, trend Clinical Quality Measures DVT/VTE Risk/Contraindication: Risk Factor Score Per Nursin RFS Level Per Nursing on Admit: 4+=Very High Contraindications-Mechi: Other *list below* Other: MAY NEED SURGERY PER DR. STACK / NO LOVENOX AT THIS TIME BRANDIE OTT MD May 18, 2019 11:53 POS
--- NOTE | 2019-05-18 11:54 | NUR ---
ABD BINDER APPLIED ORDERED BY DR FUENTES, UP IN CHAIR, LOWER LEGS EDEMATOUS, SKIN RED UNDER ABD FOLD AND UNDER BREAST, BATH GIVEN, LIQ BROWN STOOL, CALL LIGHT WITHIN REACH. BUTTOCK PURPLE, SKIN BLANCHES, BUTT PASTE APPLIED, AIR MATTRESS IN CHAIR
[2019-05-18 12:00] VITALS: BP 176/83
--- NOTE | 2019-05-18 12:01 | NUR ---
Pt was being bathed at the time of treatment was due.
[2019-05-18] MEDS: MICONAZOLE NITRATE 2% CRM 30 GM TP PRN (13:10)
[2019-05-18 16:32] VITALS: BP 183/76
[2019-05-18 19:48] VITALS: BP 172/84
[2019-05-18] MEDS: METOCLOPRAMIDE INJ 10 MG/2 ML (REGLAN) IVP PRN (20:40)
[2019-05-19] VITALS (7 sets, daily range): BP systolic 132–180; BP diastolic 56–81
[2019-05-19] MEDS: fentaNYL INJECTION 100 MCG/2 ML AMP IV PRN (02:58)
[2019-05-19] MEDS: D5W 1000 ML IV SOLUTION 1,000 ML IV SCH (02:59)
[2019-05-19] MEDS: LEVOTHYROXINE 100 MCG (LEVOTHROID) TAB PO SCH (05:15)
[2019-05-19] MEDS: LEVOTHYROXINE 75 MCG (LEVOTHROID) TABLET PO SCH (05:15)
[2019-05-19] MEDS: OMEGA 3 (FISH OIL) 1000 MG CAP PO SCH (05:16)
[2019-05-19 05:48] LABS: BASOPHILS % (AUTO) 0 % (0-10); EOSINOPHILS # (AUTO) 0.2 10^3/uL (0.0-0.3); EOSINOPHILS % (AUTO) 3 % (0-10); HEMATOCRIT 33 % (35-52); HEMOGLOBIN 9.4 G/DL (11.5-16.0); LYMPHOCYTES # (AUTO) 0.9 X 10^3 (1.0-4.0); LYMPHOCYTES % (AUTO) 12 % (12-44); MEAN CORPUSCULAR HEMOGLOBIN 28 PG (25-34); MEAN CORPUSCULAR HGB CONC 29 G/DL (32-36); MEAN CORPUSCULAR VOLUME 98 FL (80-99); MEAN PLATELET VOLUME 9.6 FL (7.4-10.4); MONOCYTES # (AUTO) 0.3 X 10^3 (0.0-1.0); MONOCYTES % (AUTO) 4 % (0-12); NEUTROPHILS # (AUTO) 5.7 X 10^3 (1.8-7.8); NEUTROPHILS % (AUTO) 80 % (42-75); PLATELET COUNT 78 10^3/uL (130-400); RED CELL DISTRIBUTION WIDTH 15.9 % (10.0-14.5); WHITE BLOOD COUNT 7.1 10^3/uL (4.3-11.0)
[2019-05-19 06:06] LABS: CALCIUM 8.1 MG/DL (8.5-10.1); CREATININE SERUM 1.28 MG/DL (0.60-1.30); MAGNESIUM 1.9 MG/DL (1.6-2.4); PHOSPHORUS 3.5 MG/DL (2.3-4.7); POTASSIUM 4.3 MMOL/L (3.6-5.0)
[2019-05-19] MEDS: RT-ALBUTEROL/IPRATROPIUM 3 ML (DUONEB) VIAL IH SCH ×4 (07:49→19:23)
--- NOTE | 2019-05-19 08:05 | Progress Note ---
Subjective Time Seen by a Provider: 08:02 Subjective/Events-last exam She had a rough weekend. Patient having bowel movements. Patient has thrombocytopenia with platelet counts in the 70,006. To consult hematology and take off Lovenox. Patient in the right direction. Patient states she doesn't feel well at this time Objective Exam Vital Signs Date Time Temp Pulse Resp B/P (MAP) Pulse Ox O2 Delivery O2 Flow Rate FiO2 05/19/19 07:49 95 Nasal Cannula 3.00 05/19/19 07:00 68 05/19/19 03:41 36.8 66 20 136/63 (87) 100 Nasal Cannula 3.00 05/19/19 01:00 68 05/19/19 00:02 36.2 67 21 180/81 (114) 100 Nasal Cannula 3.00 05/18/19 20:15 95 Nasal Cannula 3.00 05/18/19 20:00 Nasal Cannula 3.00 05/18/19 19:48 37.0 66 20 172/84 (113) 100 Nasal Cannula 3.00 05/18/19 19:00 67 05/18/19 16:32 36.1 66 20 183/76 (111) 99 Nasal Cannula 3.00 05/18/19 15:40 98 Nasal Cannula 2.00 05/18/19 13:00 65 05/18/19 12:00 36.4 80 18 176/83 (114) 100 Nasal Cannula 3.00 I & O 05/19/19 07:00 Intake Total 1050 ml Balance 1050 ml Capillary Refill : Less Than 3 Seconds General Appearance: No Apparent Distress, WD/WN HEENT: Normal ENT Inspection Neck: Full Range of Motion, Normal Inspection Respiratory: No Accessory Muscle Use, No Respiratory Distress, Decreased Breath Sounds, Other (Loose congestion) Cardiovascular: Regular Rate, Rhythm, No Murmur Gastrointestinal: soft Results Lab Laboratory Tests 05/19/19 05:40 Laboratory Tests 05/19/19 05:40: White Blood Count 7.1, Red Blood Count 3.34L, Hemoglobin 9.4L, Hematocrit 33L, Mean Corpuscular Volume 98, Mean Corpuscular Hemoglobin 28, Mean Corpuscular Hemoglobin Concent 29L, Red Cell Distribution Width 15.9H, Platelet Count 78L, Mean Platelet Volume 9.6, Neutrophils (%) (Auto) 80H, Lymphocytes (%) (Auto) 12, Monocytes (%) (Auto) 4, Eosinophils (%) (Auto) 3, Basophils (%) (Auto) 0, Neutrophils # (Auto) 5.7, Lymphocytes # (Auto) 0.9L, Monocytes # (Auto) 0.3, Eosinophils # (Auto) 0.2, Basophils # (Auto) 0.0, Sodium Level 142, Potassium Level 4.3, Chloride Level 108H, Carbon Dioxide Level 27, Anion Gap 7, Blood Urea Nitrogen 20H, Creatinine 1.28, Estimat Glomerular Filtration Rate 41, BUN/Creatinine Ratio 16, Glucose Level 95, Calcium Level 8.1L, Phosphorus Level 3.5, Magnesium Level 1.9 Assessment/Plan Assessment/Plan Assess & Plan/Chief Complaint Incarcerated umbilical hernia. COPD. Hypertension. Renal insufficiency. . 05/16/19. Umbilical hernia. COPD. Hypertension. Renal insufficiency.. . 05/19/19. Umbilical hernia history of incarceration. COPD. Hypertension. Renal insufficiency improving Clinical Quality Measures Admission Status Admission Dx Small bowel obstruction. Incarcerated umbilical hernia. COPD. Renal insufficiency. Hyperkalemia. Hypertension DVT/VTE Risk/Contraindication: Risk Factor Score Per Nursin RFS Level Per Nursing on Admit: 4+=Very High Contraindications-Mechi: Other *list below* Other: MAY NEED SURGERY PER DR. STACK / RUSTY LEAL AT THIS TIME AURORA STACK DO May 19, 2019 08:05 POS
[2019-05-19] MEDS: meTOprolol TARTRATE 25 MG (LOPRESSOR) TABLET PO SCH ×2 (08:47→21:34)
[2019-05-19] MEDS: PANTOPRAZOLE 40 MG (PROTONIX) TAB PO SCH (08:47)
[2019-05-19] MEDS: MICONAZOLE NITRATE 2% CRM 30 GM TP PRN (08:48)
[2019-05-19] MEDS: ZINC OXIDE 16% OINT (BUTT PASTE) 113 GM TUBE TOP SCH ×3 (08:48→21:34)
[2019-05-19] MEDS: HYDROcodone/APAP 5 MG/325 MG (LORTAB) TAB PO PRN (08:48)
--- NOTE | 2019-05-19 09:33 | NUR ---
DR MENDOZA NOTIFIED OF CONSULT
--- NOTE | 2019-05-19 10:18 | Diagnostic Imaging Report ---
INDICATION: Cough and shortness of breath. EXAMINATION: PA and lateral chest. FINDINGS: The heart is mildly enlarged. The pulmonary vascularity is normal. There are no infiltrates, effusions, or pneumothoraces. IMPRESSION: No acute abnormalities in the chest. Dictated by: Dictated on workstation # [id number]
--- NOTE | 2019-05-19 12:14 | NUR ---
CM/SS following patient till discharge to assess needs and notify [facility]. Plan: The patient will return to [facility] after discharge. Will continue to follow. Addendum: 05/19/19 at 1217 by CYN CARRERA The patient stated that she did not have any needs at this time.
--- NOTE | 2019-05-19 13:50 | NUR ---
RD ASSESSMENT PMHx: afib; hypercholesterolemia; HTN; renal failure; GERD; hypothyroidism; COPD PT INTERACTION: Pt was awake and pleasant during nutrition assessment. Pt states current appetite is poor and has been for "a while." Note pt avg PO intake of <50% x3d, per chart review. Pt states following a regular diet at [facility], and currently has no top teeth and few bottom left. Pt states some recent episodes of nuasea and vomiting and diarrhea. Note last BM was 05/19 and pt not currently on bowel regimen, per chart review. Pt states no significant recent wt changes, but states has had some wt gain d/t fluid buildup. Note unable to determine recent wt hx, per chart review. ABNORMAL NUTRITION-RELATED LAB VALUES LOW: Ca 8.1 HIGH: Cl 108; BUN 20 Est. kcal needs: 8568-1373 kcal | 15-18 kcal/kg Est. Pro needs: 91-114 g Pro | 0.8-1.0 g Pro/kg PES STATEMENT: Inadequate oral intake (NI-2.1) related to loss of appetite | nausea | vomiting as evidenced by pt interview | avg PO intake of <50% x3d INTERVENTION: Continue with current diet order of DYS2 Mechanically Altered diet. Add Ensure Enlive to meals TID to increase kcal intake. Provides 350 kcal and 13 g Pro per serving. Will continue to follow and reassess as pt needs and status change. MONITOR/EVALUATE: PO Intake; Plan of Care; Hydration Status; Weight Status; Lab Values Collin Barrios, MS, RD, LD
--- NOTE | 2019-05-19 15:30 | Progress Note - Surgery ---
Subjective Time Seen by a Provider: 14:42 Subjective/Events-last exam Pt seen and examined, she was getting a breathing treatment. Pt states she still has abdominal pain, but describes it all above the hernia. Pt states she was having some nausea and "vomiting"; but was more of coughing up little amounts. Stated she was drinking more, but some was coming up. Review of Systems Pulmonary: Dyspnea, Cough Cardiovascular: No: Chest Pain, Palpitations Gastrointestinal: Nausea, Vomiting, Abdominal Pain Objective Exam Vital Signs Date Time Temp Pulse Resp B/P (MAP) Pulse Ox O2 Delivery O2 Flow Rate FiO2 05/19/19 11:39 97 Nasal Cannula 3.00 05/19/19 11:38 36.0 61 22 132/56 (81) 99 Nasal Cannula 3.00 05/19/19 08:00 100 Nasal Cannula 3.00 05/19/19 08:00 36.3 70 20 158/80 (106) 100 Nasal Cannula 3.00 05/19/19 07:49 95 Nasal Cannula 3.00 05/19/19 07:00 68 05/19/19 03:41 36.8 66 20 136/63 (87) 100 Nasal Cannula 3.00 05/19/19 01:00 68 05/19/19 00:02 36.2 67 21 180/81 (114) 100 Nasal Cannula 3.00 05/18/19 20:15 95 Nasal Cannula 3.00 05/18/19 20:00 Nasal Cannula 3.00 05/18/19 19:48 37.0 66 20 172/84 (113) 100 Nasal Cannula 3.00 05/18/19 19:00 67 05/18/19 16:32 36.1 66 20 183/76 (111) 99 Nasal Cannula 3.00 05/18/19 15:40 98 Nasal Cannula 2.00 I & O 05/19/19 07:00 Intake Total 1050 ml Balance 1050 ml Capillary Refill : Less Than 3 Seconds General Appearance: No Apparent Distress, WD/WN Respiratory: No Accessory Muscle Use, No Respiratory Distress, Decreased Breath Sounds, Other (Loose congestion) Cardiovascular: Regular Rate, Rhythm, No Murmur Peripheral Pulses: 2+ Radial Pulses (R), 2+ Radial Pulses (L) Gastrointestinal: soft, hernia (incarcerated [facility]), other (obese) Extremity: Normal Capillary Refill, No Calf Tenderness Neurologic/Psychiatric: Alert, Oriented x3 Skin: Normal Color, Warm/Dry Results Lab Laboratory Tests 05/19/19 05:40: White Blood Count 7.1, Red Blood Count 3.34L, Hemoglobin 9.4L, Hematocrit 33L, Mean Corpuscular Volume 98, Mean Corpuscular Hemoglobin 28, Mean Corpuscular Hemoglobin Concent 29L, Red Cell Distribution Width 15.9H, Platelet Count 78L, Mean Platelet Volume 9.6, Neutrophils (%) (Auto) 80H, Lymphocytes (%) (Auto) 12, Monocytes (%) (Auto) 4, Eosinophils (%) (Auto) 3, Basophils (%) (Auto) 0, Neutrophils # (Auto) 5.7, Lymphocytes # (Auto) 0.9L, Monocytes # (Auto) 0.3, Eosinophils # (Auto) 0.2, Basophils # (Auto) 0.0, Sodium Level 142, Potassium Level 4.3, Chloride Level 108H, Carbon Dioxide Level 27, Anion Gap 7, Blood Urea Nitrogen 20H, Creatinine 1.28, Estimat Glomerular Filtration Rate 41, BUN/Creatinine Ratio 16, Glucose Level 95, Calcium Level 8.1L, Phosphorus Level 3.5, Magnesium Level 1.9 Assessment/Plan Assessment/Plan Assessment/Plan Incarcerated umbilical hernia. COPD. Hypertension. Renal insufficiency. Pt has abdominal pain, nausea and vomiting. I am not sure what is causing this, but I don't believe it is the hernia. She may have some component of Gastroparesis. Would continue with diet as tolerated and may order a flat plate. Pt may be helped with EGD to look at stomach; will discuss this more with her if she does not continue to improve. Clinical Quality Measures DVT/VTE Risk/Contraindication: Risk Factor Score Per Nursin RFS Level Per Nursing on Admit: 4+=Very High Contraindications-Mechi: Other *list below* Other: MAY NEED SURGERY PER DR. STACK / RUSTY LEAL AT THIS TIME REESE BRICENO DO May 19, 2019 15:30 POS
--- NOTE | 2019-05-19 16:22 | Pulmonary Progress Note ---
Sepsis Event Evaluation Height, Weight, BMI Height: 5'4.00" Weight: 246lbs. 2.0oz. [id number]; 40.77 BMI Method:Stated Exam Exam Vital Signs Date Time Temp Pulse Resp B/P (MAP) Pulse Ox O2 Delivery O2 Flow Rate FiO2 05/19/19 15:56 36.6 72 20 169/81 (110) 99 Nasal Cannula 3.00 05/19/19 11:39 97 Nasal Cannula 3.00 05/19/19 11:38 36.0 61 22 132/56 (81) 99 Nasal Cannula 3.00 05/19/19 08:00 100 Nasal Cannula 3.00 05/19/19 08:00 36.3 70 20 158/80 (106) 100 Nasal Cannula 3.00 05/19/19 07:49 95 Nasal Cannula 3.00 05/19/19 07:00 68 05/19/19 03:41 36.8 66 20 136/63 (87) 100 Nasal Cannula 3.00 05/19/19 01:00 68 05/19/19 00:02 36.2 67 21 180/81 (114) 100 Nasal Cannula 3.00 05/18/19 20:15 95 Nasal Cannula 3.00 05/18/19 20:00 Nasal Cannula 3.00 05/18/19 19:48 37.0 66 20 172/84 (113) 100 Nasal Cannula 3.00 05/18/19 19:00 67 05/18/19 16:32 36.1 66 20 183/76 (111) 99 Nasal Cannula 3.00 I & O 05/19/19 07:00 Intake Total 1050 ml Balance 1050 ml Height & Weight Height: 5'4.00" Weight: 246lbs. 2.0oz. [id number]; 40.77 BMI Method:Stated General Appearance: No Apparent Distress, WD/WN Respiratory: No Accessory Muscle Use, No Respiratory Distress, Decreased Breath Sounds, Other (Loose congestion) Cardiovascular: Regular Rate, Rhythm, No Murmur Capillary Refill: Less Than 3 Seconds Peripheral Pulses: 2+ Radial Pulses (R), 2+ Radial Pulses (L) Gastrointestinal: soft, hernia (incarcerated [facility]), other (obese) Extremity: Normal Capillary Refill, No Calf Tenderness Neurologic/Psychiatric: Alert, Oriented x3 Skin: Normal Color, Warm/Dry Results Lab Laboratory Tests 05/18/19 05:13 05/19/19 05:40 Assessment/Plan Assessment/Plan Hx of COPD - -stable Constipation r/o SBO -Surgery following -no plan for surgery currently -small bowel follow through showed no obstruction -ng was removed -pt has had bowel movements Renal failure - improving -monitor Ventral hernia Obesity ESTRELLITA PITT DO May 19, 2019 16:22 POS
--- NOTE | 2019-05-19 22:26 | CONSULTATION REPORT ---
DATE OF SERVICE: 05/19/2019 The patient is admitted to room 432. PHYSICIAN REQUESTING CONSULTATION AND PRIMARY PHYSICIAN: Juan Carrera DO. IMPRESSION: 1. A 68-year-old female admitted to the hospital with worsening abdominal pain, nausea and vomiting. 2. Questionable incarcerated ventral hernia with partial small-bowel obstruction. 3. Anemia and thrombocytopenia of undetermined etiology. 4. Morbid obesity. 5. Chronic kidney disease, stage III to IV. RECOMMENDATIONS: 1. I will request a CBC with peripheral smear and reticulocyte count tomorrow morning. Also obtain a CMP and LDH level. Rule out DIC and we will obtain D-dimer, fibrinogen and protime. 2. Complete serum iron studies with serum iron, TIBC and ferritin. 3. Continue management of abdominal pain and partial small-bowel obstruction as you are doing. 4. We will follow the patient with you. BRIEF HISTORY: The patient is a 68-year-old female who came to the emergency room with worsening abdominal pain and a hard mass at the previous ventral hernia site. She was evaluated in the emergency room with a CAT scan and the possibility of incarcerated hernia was made. She was admitted to the hospital to rule out bowel obstruction. Nausea and vomiting has improved and a small bowel follow through showed no evidence of obstruction. She was noted to have anemia and gradually worsening thrombocytopenia. Because of this, a hematology consultation was obtained. PAST MEDICAL HISTORY: Significant for hypertension, , hypothyroidism and osteoarthritis. She has previous history of anemia due to menorrhagia requiring supracervical hysterectomy and bilateral salpingo-oophorectomy in 2009. Prior to that, she has required multiple blood transfusions. She gives history of pneumonia with empyema and pericardial effusion requiring prolonged hospitalization in 1993. She required chest tube drainage and pericardial window placement during the hospitalization as well as dialysis for renal failure. She required a tracheostomy placement with followup surgeries to reduce the scarring. She has shortness of breath related to the scarring. She was diagnosed with COPD and diabetes mellitus type 2. No history of AK, but gave a history of congestive heart failure in the past. PRIOR SURGERIES: Pericardial window placement as well as chest tube placement in 1993 as well as tracheostomy placement. Other surgeries include supracervical hysterectomy and bilateral salpingo-oophorectomy in 2009. Injury to tendon on the right hand requiring surgery. She has had eye surgery. She developed ventral hernia at the site of one of her surgeries several years ago, which has worsened over the years. SOCIAL HISTORY: The patient never and has no children. She lives by herself in [place], [place]. Her close relatives are few cousins who check on her. 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 She tried working part-time after that which was not successful. She has smoked for approximately 14 years, one-half to 1 pack a day and quit several decades ago. No significant alcohol or recreational drug use. FAMILY HISTORY: Significant for coronary artery disease and AK in her father who at the age of 47 years. Mother had diabetes mellitus and hypertension. No significant hematologic problems or malignancies in the family. PHYSICAL EXAMINATION: GENERAL: Showed obese female, weak appearing, awake and oriented, in mild discomfort due to the abdominal pain. VITAL SIGNS: Temperature was 36.6, pulse rate of 77, respirations 20, blood pressure 156/75 with oxygen saturation of 96% on 3 liters of oxygen by nasal cannula. HEENT: Normocephalic, extraocular muscles intact, conjunctivae slightly pale, oral mucosa moist. NECK: Supple, with no JVD. Healed scar from previous tracheostomy noted. No cervical, supraclavicular or axillary lymphadenopathy palpable. CHEST: Symmetrical. LUNGS: Fairly clear to auscultation without wheezes or rales. CARDIOVASCULAR: Regular in rate and rhythm without murmurs or gallops. ABDOMEN: Obese, soft with mild tenderness in the infraumbilical region where ventral hernia was present. No hard masses were palpable. No hepatosplenomegaly palpable but exam is suboptimal because of obesity. EXTREMITIES: Showed 2+ edema of both lower extremities with pigmentary changes from venous stasis. NEUROLOGIC: Showed no focal motor deficits. LABORATORY DATA: CBC done today showed WBC 7.1, hemoglobin 9.4, MCV 98, platelet count 78,000 with neutrophil count 5.7 and lymphocyte count 0.9. BMP done today showed relatively normal electrolytes. BUN was 20 and creatinine 1.28 with GFR 41. Magnesium level was 1.9. CMP done on 05/15/2019 showed normal liver function studies. Review of previous lab work showed anemia since earlier this year as well as in the distant past. A thrombocytopenia has been ongoing since 2013. Her renal failure has been ongoing since 2008 with stage III-IV level. CT scan of the abdomen and pelvis done on 05/14/2019 showed no evidence of hepatosplenomegaly. There is probable developing site of obstruction in the distal small bowel at the site of ventral small bowel herniation. Small bowel follow through done on 05/15/2019 showed no evidence of small-bowel obstruction. Thank you for allowing me to participate in this patient's care. I will follow the patient with you and make appropriate recommendations. Job ID: [id number] DocumentID: [id number] Dictated Date: 05/19/2019 19:48:34 Template Reproduction Technician Date: 05/19/2019 22:25:35 Dictated By: STELLA MENDOZA MD
[2019-05-20 04:00] VITALS: BP 145/74
[2019-05-20] MEDS: HYDROcodone/APAP 5 MG/325 MG (LORTAB) TAB PO PRN (05:20)
[2019-05-20] MEDS: LEVOTHYROXINE 100 MCG (LEVOTHROID) TAB PO SCH (05:20)
[2019-05-20] MEDS: OMEGA 3 (FISH OIL) 1000 MG CAP PO SCH (05:20)
[2019-05-20 05:21] LABS: BASOPHILS % (AUTO) 0 % (0-10); EOSINOPHILS # (AUTO) 0.3 10^3/uL (0.0-0.3); EOSINOPHILS % (AUTO) 4 % (0-10); HEMATOCRIT 32 % (35-52); LYMPHOCYTES # (AUTO) 0.8 X 10^3 (1.0-4.0); LYMPHOCYTES % (AUTO) 13 % (12-44); MEAN CORPUSCULAR HEMOGLOBIN 28 PG (25-34); MEAN CORPUSCULAR HGB CONC 28 G/DL (32-36); MEAN CORPUSCULAR VOLUME 98 FL (80-99); MEAN PLATELET VOLUME 10.1 FL (7.4-10.4); MONOCYTES # (AUTO) 0.3 X 10^3 (0.0-1.0); MONOCYTES % (AUTO) 5 % (0-12); NEUTROPHILS # (AUTO) 5.2 X 10^3 (1.8-7.8); NEUTROPHILS % (AUTO) 79 % (42-75); PLATELET COUNT 90 10^3/uL (130-400); RED CELL DISTRIBUTION WIDTH 16.2 % (10.0-14.5); WHITE BLOOD COUNT 6.6 10^3/uL (4.3-11.0)
[2019-05-20] MEDS: LEVOTHYROXINE 75 MCG (LEVOTHROID) TABLET PO SCH (05:22)
[2019-05-20 05:39] LABS: CALCIUM 8.2 MG/DL (8.5-10.1); CREATININE SERUM 1.38 MG/DL (0.60-1.30); MAGNESIUM 1.9 MG/DL (1.6-2.4); POTASSIUM 4.3 MMOL/L (3.6-5.0)
--- NOTE | 2019-05-20 06:07 | NUR ---
0545- PT RINGS CALL LIGHT IN NEED OF ASSISTANCE TO THE BEDSIDE COMMODE 0546- MANAS HOLGUIN AND MANAS HERNANDEZ ENTER THE ROOM TO ASSIST PT TO BEDSIDE COMMODE. PT STATES "SHE IS HAVING DIFFICULTY BREATHING AND WANTS TO CHECK HER O2 SAT." EZIO HANDS PT HER OXYGEN MONITOR. PT STATES THAT EZIO HAD STOLEN THE BACK PIECE OF THE MONITOR. MANAS HOLGUIN FINDS THE BACK OF HER 02 MONITOR IN THE PATIENTS HAND. MANAS HOLGUIN STATES, "THAT REALLY UPSETS ME WHEN YOU ACCUSE ME OF STEALING, WHEN I HAD NOT STOLEN ANYTHING FROM YOU." PT RESPONDS, "WELL." 0550- PT IS ASSISTED TO THE BEDSIDE COMMODE AND ASKS FOR A LITTLE PRIVACY. MANAS HOLGUIN AND MANAS HERNANDEZ RESPECT PT'S WISHES AND LEAVE THE ROOM TELLING HER TO PRESS THE CALL LIGHT WHEN SHE IS READY. 0554- PT PRESSES THE CALL LIGHT. MANAS HOLGUIN AND MANAS HERNANDEZ RETURN TO THE ROOM TO HELP PT OFF COMMODE AND BACK TO BED. PT THEN STATES "EZIO BROKE THE SPRING ON MY O2 MONITOR. I'M GOING TO REPORT YOU TO STATE." MANAS HOLGUIN HAD NOT TOUCHED THE O2 MONITOR AFTER BEING ACCUSED OF STEALING THE FIRST PIECE AND BOTH SPRINGS WERE INTACT WHEN HANDING THE MONITOR BACK TO THE PT. RECYCLE DRIVER INFORMED OF INCIDENT. MANAS HOLGUIN ADVISED TO NOT RETURN TO PATIENT'S ROOM.
[2019-05-20 07:27] VITALS: BP 164/74
[2019-05-20] MEDS: RT-ALBUTEROL/IPRATROPIUM 3 ML (DUONEB) VIAL IH SCH ×4 (07:30→18:55)
--- NOTE | 2019-05-20 08:13 | Progress Note - Surgery ---
MAGGI STERLING MED STUDENT 05/20/19 0813: Subjective Date Seen by a Provider: May 20, 2019 Time Seen by a Provider: 07:50 Subjective/Events-last exam When seen today Ms. Woodall reports not doing very well. She reports having continued abdominal pain that at worst is 8 or 9/10 burning pain near belly button and lower quadrants that often occurs after eating. This pain was not reproducible on exam, but she did report some LLQ pain described as irritation on exam that radiated up to LUQ. She continues to have nausea after eating, reports less since she has started solid foods, no vomiting. Nausea is exacerbated by coughing. Also reports some increased abdominal swelling in her RLQ. Reports having loose stools every couple hours, no blood in stool. On PE noted that L eye was more dilated than R and was not reactive to light. She reports this is normal for her since a surgery she had on her L eye to treat a cameron infection. Review of Systems General: No Chills; Fatigue HEENT: Sinus Congestion; No Sore Throat Pulmonary: Dyspnea, Cough Cardiovascular: Chest Pain (L sided dull pain intermittently at rest, has had similar pains on R), Edema, Lt Headedness (dizziness when standing up this morning); No: Palpitations Gastrointestinal: Nausea, Abdominal Pain; No: Vomiting, Diarrhea, Constipation, Melena, Hematochezia Genitourinary: No Dysuria, No Hematuria Neurological: No: Weakness, Numbness Objective Exam Vital Signs Date Time Temp Pulse Resp B/P (MAP) Pulse Ox O2 Delivery O2 Flow Rate FiO2 05/20/19 07:30 99 Nasal Cannula 3.00 05/20/19 04:00 36.3 67 20 145/74 (97) 96 Nasal Cannula 3.00 05/19/19 23:40 36.7 67 20 159/81 (107) 98 Nasal Cannula 3.00 05/19/19 20:00 Nasal Cannula 3.00 05/19/19 19:23 93 Nasal Cannula 3.00 05/19/19 19:22 36.6 77 20 156/75 (102) 96 Nasal Cannula 3.00 05/19/19 15:56 36.6 72 20 169/81 (110) 99 Nasal Cannula 3.00 05/19/19 11:39 97 Nasal Cannula 3.00 05/19/19 11:38 36.0 61 22 132/56 (81) 99 Nasal Cannula 3.00 I & O 05/20/19 07:00 Intake Total 1150 ml Balance 1150 ml Capillary Refill : Less Than 3 Seconds General Appearance: No Apparent Distress, Chronically ill, Obese HEENT: No PERRL/EOMI (L eye dilated, not reactive to light), No Pale Conjunctivae (L), No Pale Conjunctivae (R), No Scleral Icterus (L), No Scleral Icterus (R) Neck: Normal Inspection, Non Tender, Supple Respiratory: No Accessory Muscle Use, No Respiratory Distress, Crackles, Rhonci, Other (Loose congestion) Cardiovascular: Regular Rate, Rhythm, No Murmur Peripheral Pulses: 2+ Radial Pulses (R), 2+ Radial Pulses (L) Gastrointestinal: normal bowel sounds, soft, tenderness (mild, L of umbilicus, reports radiates to LUQ), hernia (incarcerated [facility]), other (obese) Extremity: No Calf Tenderness, Pedal Edema, Other (dermatitis) Neurologic/Psychiatric: Alert, Oriented x3, Normal Mood/Affect, 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 L eye not reactive to light.) Skin: Normal Color, Warm/Dry Results Lab Laboratory Tests 05/20/19 05:00: White Blood Count 6.6, Red Blood Count 3.23L, Hemoglobin 9.0L, Hematocrit 32L, Mean Corpuscular Volume 98, Mean Corpuscular Hemoglobin 28, Mean Corpuscular Hemoglobin Concent 28L, Red Cell Distribution Width 16.2H, Platelet Count 90L, Mean Platelet Volume 10.1, Neutrophils (%) (Auto) 79H, Lymphocytes (%) (Auto) 13, Monocytes (%) (Auto) 5, Eosinophils (%) (Auto) 4, Basophils (%) (Auto) 0, Neutrophils # (Auto) 5.2, Lymphocytes # (Auto) 0.8L, Monocytes # (Auto) 0.3, Eosinophils # (Auto) 0.3, Basophils # (Auto) 0.0 05/20/19 05:10: Sodium Level 142, Potassium Level 4.3, Chloride Level 109H, Carbon Dioxide Level 25, Anion Gap 8, Blood Urea Nitrogen 19H, Creatinine 1.38H, Estimat Glomerular Filtration Rate 38, BUN/Creatinine Ratio 14, Glucose Level 78, Calcium Level 8.2L, Phosphorus Level 3.3, Magnesium Level 1.9 Assessment/Plan Assessment/Plan Assessment/Plan Incarcerated umbilical hernia COPD HTN Renal insufficiency Nausea seems improved but abdominal pain remains. Consider abdominal x-ray. Continue solid foods. Clinical Quality Measures DVT/VTE Risk/Contraindication: Risk Factor Score Per Nursin RFS Level Per Nursing on Admit: 4+=Very High Contraindications-Mechi: Other *list below* Other: MAY NEED SURGERY PER DR. STACK / NO LOVENOX AT THIS TIME EMILIANO BRICENO DO 05/20/19 1315: Subjective Time Seen by a Provider: 12:58 Subjective/Events-last exam Pt seen and examined, states the pain is more in lower abdomen today. Still has nausea. Objective Exam HEENT: Other (L pupil slightly larger than right, (most likely due to surgery) EOMI) Gastrointestinal: tenderness (mild, L of umbilicus, reports radiates to LUQ) Assessment/Plan Assessment/Plan Assessment/Plan Abdominal pain Incarcerated [facility] 3 view abdomen today, diet as tolerated, pt must ambulate more, IS use and max medical care Supervisory-Addendum Brief Verification & Attestation Participated in pt care: history, MDM, physical Personally performed: exam, history, MDM Care discussed with: Medical Student Procedures: n/a Verification and Attestation of Medical Student E/M Service A medical student performed and documented this service in my presence. I re viewed and verified all information documented by the medical student and made modifications to such information, when appropriate. I personally performed the physical exam and medical decision making. Emiliano Briceno, May 20, 2019,13:15 MAGGI STERLING MED STUDENT May 20, 2019 08:13 EMILIANO BUSTOS DO May 20, 2019 13:15 POS
--- NOTE | 2019-05-20 08:21 | Progress Note ---
Subjective Time Seen by a Provider: 08:17 Subjective/Events-last exam Patient still has some abdominal pain in the abdomen. Patient's platelet count went up to 90,000. Patient seen by hematology. COPD. Renal insufficiency who Patient having bowel movements Objective Exam Vital Signs Date Time Temp Pulse Resp B/P (MAP) Pulse Ox O2 Delivery O2 Flow Rate FiO2 05/20/19 07:30 99 Nasal Cannula 3.00 05/20/19 07:27 36.2 72 20 164/74 (104) 99 Nasal Cannula 3.00 05/20/19 04:00 36.3 67 20 145/74 (97) 96 Nasal Cannula 3.00 05/19/19 23:40 36.7 67 20 159/81 (107) 98 Nasal Cannula 3.00 05/19/19 20:00 Nasal Cannula 3.00 05/19/19 19:23 93 Nasal Cannula 3.00 05/19/19 19:22 36.6 77 20 156/75 (102) 96 Nasal Cannula 3.00 05/19/19 15:56 36.6 72 20 169/81 (110) 99 Nasal Cannula 3.00 05/19/19 11:39 97 Nasal Cannula 3.00 05/19/19 11:38 36.0 61 22 132/56 (81) 99 Nasal Cannula 3.00 I & O 05/20/19 07:00 Intake Total 1150 ml Balance 1150 ml Capillary Refill : Less Than 3 Seconds General Appearance: No Apparent Distress, WD/WN HEENT: Normal ENT Inspection Neck: Full Range of Motion, Normal Inspection Respiratory: No Accessory Muscle Use, Decreased Breath Sounds Cardiovascular: Regular Rate, Rhythm Gastrointestinal: soft, other (Pain around the umbilicus) Results Lab Laboratory Tests 05/20/19 05:00 05/20/19 05:10 Laboratory Tests 05/20/19 05:00: White Blood Count 6.6, Red Blood Count 3.23L, Hemoglobin 9.0L, Hematocrit 32L, Mean Corpuscular Volume 98, Mean Corpuscular Hemoglobin 28, Mean Corpuscular Hemoglobin Concent 28L, Red Cell Distribution Width 16.2H, Platelet Count 90L, Mean Platelet Volume 10.1, Neutrophils (%) (Auto) 79H, Lymphocytes (%) (Auto) 13, Monocytes (%) (Auto) 5, Eosinophils (%) (Auto) 4, Basophils (%) (Auto) 0, Neutrophils # (Auto) 5.2, Lymphocytes # (Auto) 0.8L, Monocytes # (Auto) 0.3, Eosinophils # (Auto) 0.3, Basophils # (Auto) 0.0 05/20/19 05:10: Sodium Level 142, Potassium Level 4.3, Chloride Level 109H, Carbon Dioxide Level 25, Anion Gap 8, Blood Urea Nitrogen 19H, Creatinine 1.38H, Estimat Glomerular Filtration Rate 38, BUN/Creatinine Ratio 14, Glucose Level 78, Calcium Level 8.2L, Phosphorus Level 3.3, Magnesium Level 1.9 Assessment/Plan Assessment/Plan Assess & Plan/Chief Complaint Incarcerated umbilical hernia. COPD. Hypertension. Renal insufficiency. . 05/16/19. Umbilical hernia. COPD. Hypertension. Renal insufficiency.. . 05/19/19. Umbilical hernia history of incarceration. COPD. Hypertension. Renal insufficiency improving. . 05/20/19. Thrombocytopenia. Umbilical hernia. Hypertension. Renal insufficiency. COPD Clinical Quality Measures Admission Status Admission Dx Small bowel obstruction. Incarcerated umbilical hernia. COPD. Renal insufficiency. Hyperkalemia. Hypertension DVT/VTE Risk/Contraindication: Risk Factor Score Per Nursin RFS Level Per Nursing on Admit: 4+=Very High Contraindications-Mechi: Other *list below* Other: MAY NEED SURGERY PER DR. STACK / RUSTY LEAL AT THIS TIME AURORA STACK DO May 20, 2019 08:21 POS
[2019-05-20 08:37] LABS: ABSOLUTE RETIC # 104 10e9/L (24-90); RETICULOCYTE % 3.17 % (0.50-2.40)
[2019-05-20 09:32] LABS: ANISOCYTOSIS SLIGHT; BAND NEUTROPHILS 0 %; BASOPHILS % (MANUAL) 1 %; EOSINOPHILS % (MANUAL) 1 %; LYMPHOCYTES % (MANUAL) 17 %; MONOCYTES % (MANUAL) 3 %; NEUTROPHILS % (MANUAL) 78 %
[2019-05-20] MEDS: PANTOPRAZOLE 40 MG (PROTONIX) TAB PO SCH (09:38)
[2019-05-20] MEDS: ZINC OXIDE 16% OINT (BUTT PASTE) 113 GM TUBE TOP SCH ×3 (09:39→20:02)
[2019-05-20] MEDS: meTOprolol TARTRATE 25 MG (LOPRESSOR) TABLET PO SCH ×2 (09:39→20:02)
[2019-05-20 09:56] LABS: FIBRIN DEGRADATION PRODUCTS 2.47 UG/ML (0.00-0.49); INR 1.1 (0.8-1.4); PROTHROMBIN TIME PATIENT 14.3 SEC (12.2-14.7)
[2019-05-20 11:03] VITALS: BP 175/92
[2019-05-20 11:41] VITALS: BP 142/80
[2019-05-20] MEDS: MICONAZOLE NITRATE 2% CRM 30 GM TP PRN (13:44)
[2019-05-20 16:00] VITALS: BP 179/84
--- NOTE | 2019-05-20 17:04 | Diagnostic Imaging Report ---
EXAMINATION: Abdominal radiographs, upright and supine views. DATE: May 20, 2019. CLINICAL INDICATION: 68-year-old female, abdominal pain. COMPARISON: May 15, 2019. COMMENTS: There are gas-filled segments of small and large bowel. The amount of small bowel gas is abnormal. There are air-fluid levels present. There is nonspecific bibasilar airspace consolidation. There is no identified abnormal radiodensity overlying the expected positions of the kidneys or ureters. 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 IMPRESSION: 1. Abnormal but nonspecific bowel gas pattern with abnormal amount of small bowel gas. No gross gaseous distention of the intestinal tract. 2. Nonspecific bibasilar airspace consolidation which may relate to atelectasis, infiltrate, and/or effusions. Dictated by: Dictated on workstation # [id number]
[2019-05-20 20:00] VITALS: BP 162/77
[2019-05-21] VITALS: BP 169/83
[2019-05-21] MEDS: HYDROcodone/APAP 5 MG/325 MG (LORTAB) TAB PO PRN ×2 (02:48→09:10)
[2019-05-21 04:02] VITALS: BP 136/75
[2019-05-21 05:11] LABS: BASOPHILS % (AUTO) 0 % (0-10); EOSINOPHILS # (AUTO) 0.4 10^3/uL (0.0-0.3); EOSINOPHILS % (AUTO) 5 % (0-10); HEMATOCRIT 33 % (35-52); HEMOGLOBIN 9.7 G/DL (11.5-16.0); LYMPHOCYTES # (AUTO) 1.1 X 10^3 (1.0-4.0); LYMPHOCYTES % (AUTO) 15 % (12-44); MEAN CORPUSCULAR HEMOGLOBIN 28 PG (25-34); MEAN CORPUSCULAR HGB CONC 29 G/DL (32-36); MEAN CORPUSCULAR VOLUME 97 FL (80-99); MEAN PLATELET VOLUME 11.7 FL (7.4-10.4); MONOCYTES # (AUTO) 0.4 X 10^3 (0.0-1.0); MONOCYTES % (AUTO) 5 % (0-12); NEUTROPHILS # (AUTO) 5.5 X 10^3 (1.8-7.8); NEUTROPHILS % (AUTO) 75 % (42-75); PLATELET COUNT 138 10^3/uL (130-400); RED CELL DISTRIBUTION WIDTH 16.2 % (10.0-14.5); WHITE BLOOD COUNT 7.4 10^3/uL (4.3-11.0)
[2019-05-21] MEDS: LEVOTHYROXINE 75 MCG (LEVOTHROID) TABLET PO SCH (05:24)
[2019-05-21] MEDS: OMEGA 3 (FISH OIL) 1000 MG CAP PO SCH (05:24)
[2019-05-21] MEDS: LEVOTHYROXINE 100 MCG (LEVOTHROID) TAB PO SCH (05:24)
[2019-05-21 05:29] LABS: CALCIUM 8.3 MG/DL (8.5-10.1); CREATININE SERUM 1.29 MG/DL (0.60-1.30); MAGNESIUM 1.9 MG/DL (1.6-2.4); PHOSPHORUS 2.8 MG/DL (2.3-4.7); POTASSIUM 4.5 MMOL/L (3.6-5.0)
[2019-05-21 07:10] VITALS: BP 174/80
--- NOTE | 2019-05-21 07:35 | Progress Note - Surgery ---
MAGGI STERLING MED STUDENT 05/21/19 0734: Subjective Date Seen by a Provider: May 21, 2019 Time Seen by a Provider: 06:50 Subjective/Events-last exam Since she was last seen, Ms. Woodall reports feeling about the same, she continues to have abdominal pain as before, reports an increase in abdominal s welling, and denies n/v. Reports that she has decreased appetite, eating some foods, mostly proteins, exacerbates her pain. She was able to eat pancakes and sausages yesterday morning. CXR shows abnormal amount of gas in small bowel, and air fluid levels present. Review of Systems General: No Chills, No Appetite (decreased) HEENT: Sinus Congestion; No Sore Throat Pulmonary: Dyspnea, Cough Cardiovascular: Chest Pain (same as yesterday, dull pain on R side that she has felt also on L), Edema; No: Palpitations (reports seeing elevated HR when she checks pulse ox during episodes of SOB) Gastrointestinal: Abdominal Pain, Diarrhea (loose stools); No: Nausea, Vomiting, Melena, Hematochezia Genitourinary: No Dysuria, No Hematuria Neurological: No: Weakness, Numbness Objective Exam Vital Signs Date Time Temp Pulse Resp B/P (MAP) Pulse Ox O2 Delivery O2 Flow Rate FiO2 05/21/19 04:02 36.8 72 18 136/75 (95) 99 Nasal Cannula 3.00 05/21/19 00:00 36.7 66 18 169/83 (111) 100 Nasal Cannula 3.00 05/20/19 20:00 36.8 77 20 162/77 (105) 100 Nasal Cannula 3.00 05/20/19 20:00 Nasal Cannula 3.00 05/20/19 18:55 95 Nasal Cannula 3.00 05/20/19 16:00 36.7 65 18 179/84 (115) 98 Nasal Cannula 3.00 05/20/19 14:56 96 Nasal Cannula 3.00 05/20/19 11:41 142/80 (100) 05/20/19 11:41 97 Nasal Cannula 3.00 05/20/19 11:03 36.4 70 20 175/92 (119) 100 Nasal Cannula 3.00 05/20/19 08:00 Nasal Cannula 3.00 05/20/19 07:30 99 Nasal Cannula 3.00 I & O 05/21/19 07:00 Intake Total 880 ml Balance 880 ml Capillary Refill : Less Than 3 Seconds General Appearance: No Apparent Distress, Chronically ill, Obese HEENT: No Pale Conjunctivae (L), No Pale Conjunctivae (R), No Scleral Icterus (L), No Scleral Icterus (R); Other (L pupil slightly larger than right, (most likely due to surgery) EOMI) Neck: Normal Inspection, Non Tender, Supple Respiratory: No Accessory Muscle Use, No Respiratory Distress, Crackles, Rhonci, Other (Loose congestion) Cardiovascular: Regular Rate, Rhythm, No Murmur Peripheral Pulses: 2+ Radial Pulses (R), 2+ Radial Pulses (L) Gastrointestinal: soft, tenderness (mild, L of umbilicus and in upper quadrants) Extremity: No Calf Tenderness, Pedal Edema, Other (dermatitis) Neurologic/Psychiatric: Alert, Oriented x3, Normal Mood/Affect, 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 L eye not reactive to light.) Skin: Normal Color, Warm/Dry Lymphatic: No Adenopathy Results Lab Laboratory Tests 05/20/19 09:01: Prothrombin Time 14.3, INR Comment 1.1, Fibrinogen 466, D-Dimer 2.47H 05/21/19 04:55: White Blood Count 7.4, Red Blood Count 3.41L, Hemoglobin 9.7L, Hematocrit 33L, Mean Corpuscular Volume 97, Mean Corpuscular Hemoglobin 28, Mean Corpuscular Hemoglobin Concent 29L, Red Cell Distribution Width 16.2H, Platelet Count 138, Mean Platelet Volume 11.7H, Neutrophils (%) (Auto) 75, Lymphocytes (%) (Auto) 15, Monocytes (%) (Auto) 5, Eosinophils (%) (Auto) 5, Basophils (%) (Auto) 0, Neutrophils # (Auto) 5.5, Lymphocytes # (Auto) 1.1, Monocytes # (Auto) 0.4, Eosinophils # (Auto) 0.4H, Basophils # (Auto) 0.0, Sodium Level 142, Potassium Level 4.5, Chloride Level 111H, Carbon Dioxide Level 22, Anion Gap 9, Blood Urea Nitrogen 17, Creatinine 1.29, Estimat Glomerular Filtration Rate 41, BUN/Creatinine Ratio 13, Glucose Level 98, Calcium Level 8.3L, Phosphorus Level 2.8, Magnesium Level 1.9 Assessment/Plan Assessment/Plan Assessment/Plan Incarcerated umbilical hernia COPD HTN Renal insufficiency Continues to have abdominal pain, associates with protein. CXR shows abnormal amount of gas in small bowel, and air fluid levels present. Continue current care, encourage ambulation. Clinical Quality Measures DVT/VTE Risk/Contraindication: Risk Factor Score Per Nursin RFS Level Per Nursing on Admit: 4+=Very High Contraindications-Mechi: Other *list below* Other: MAY NEED SURGERY PER DR. STACK / RUSTY CRUZX AT THIS TIME EMILIANO BRICENO DO 05/21/19 1306: Subjective Time Seen by a Provider: 12:48 Subjective/Events-last exam Pt seen and examined just prior to leaving. States abdominal pain better, but "congestion is worse". Assessment/Plan Assessment/Plan Assessment/Plan Abdominal pain Incarcerated Umbilical hernia COPD I looked at abdominal x-ray; it does not look abnormal, although she does have more air in the stomach then I would expect. Does not look like SBO. Pt is being sent home and can follow up with Dr. Lemus in a week. Supervisory-Addendum Brief Verification & Attestation Participated in pt care: history, MDM, physical Personally performed: exam, history, MDM Care discussed with: Medical Student Procedures: n/a Verification and Attestation of Medical Student E/M Service A medical student performed and documented this service in my presence. I reviewed and verified all information documented by the medical student and made modifications to such information, when appropriate. I personally performed the physical exam and medical decision making. Emiliano Briceno, May 21, 2019,13:06 MAGGI STERLING MED STUDENT May 21, 2019 07:34 EMILIANO BUSTOS DO May 21, 2019 13:06 POS
--- NOTE | 2019-05-21 08:12 | Progress Note ---
Subjective Time Seen by a Provider: 08:10 Subjective/Events-last exam Patient put back on blood pressure medicine ration to hypertensive today. Patient ate 50 percent of her food today. Patient having bowel movements. Patient stable. If okay with surgery okay with me for patient to be discharged today Objective Exam Vital Signs Date Time Temp Pulse Resp B/P (MAP) Pulse Ox O2 Delivery O2 Flow Rate FiO2 05/21/19 07:10 35.8 81 18 174/80 (111) 98 Nasal Cannula 3.00 05/21/19 04:02 36.8 72 18 136/75 (95) 99 Nasal Cannula 3.00 05/21/19 00:00 36.7 66 18 169/83 (111) 100 Nasal Cannula 3.00 05/20/19 20:00 36.8 77 20 162/77 (105) 100 Nasal Cannula 3.00 05/20/19 20:00 Nasal Cannula 3.00 05/20/19 18:55 95 Nasal Cannula 3.00 05/20/19 16:00 36.7 65 18 179/84 (115) 98 Nasal Cannula 3.00 05/20/19 14:56 96 Nasal Cannula 3.00 05/20/19 11:41 142/80 (100) 05/20/19 11:41 97 Nasal Cannula 3.00 05/20/19 11:03 36.4 70 20 175/92 (119) 100 Nasal Cannula 3.00 I & O 05/21/19 07:00 Intake Total 880 ml Balance 880 ml Capillary Refill : Less Than 3 Seconds General Appearance: No Apparent Distress, WD/WN HEENT: Normal ENT Inspection Neck: Full Range of Motion, Normal Inspection Respiratory: No Accessory Muscle Use, No Respiratory Distress, Decreased Breath Sounds Gastrointestinal: non tender, soft Results Lab Laboratory Tests 05/21/19 04:55 Laboratory Tests 05/20/19 09:01: Prothrombin Time 14.3, INR Comment 1.1, Fibrinogen 466, D-Dimer 2.47H 05/21/19 04:55: White Blood Count 7.4, Red Blood Count 3.41L, Hemoglobin 9.7L, Hematocrit 33L, Mean Corpuscular Volume 97, Mean Corpuscular Hemoglobin 28, Mean Corpuscular Hemoglobin Concent 29L, Red Cell Distribution Width 16.2H, Platelet Count 138, Mean Platelet Volume 11.7H, Neutrophils (%) (Auto) 75, Lymphocytes (%) (Auto) 15, Monocytes (%) (Auto) 5, Eosinophils (%) (Auto) 5, Basophils (%) (Auto) 0, Neutrophils # (Auto) 5.5, Lymphocytes # (Auto) 1.1, Monocytes # (Auto) 0.4, Eosinophils # (Auto) 0.4H, Basophils # (Auto) 0.0, Sodium Level 142, Potassium Level 4.5, Chloride Level 111H, Carbon Dioxide Level 22, Anion Gap 9, Blood Urea Nitrogen 17, Creatinine 1.29, Estimat Glomerular Filtration Rate 41, BUN/Creatinine Ratio 13, Glucose Level 98, Calcium Level 8.3L, Phosphorus Level 2.8, Magnesium Level 1.9 Assessment/Plan Assessment/Plan Assess & Plan/Chief Complaint Incarcerated umbilical hernia. COPD. Hypertension. Renal insufficiency. . 05/16/19. Umbilical hernia. COPD. Hypertension. Renal insufficiency.. . 05/19/19. Umbilical hernia history of incarceration. COPD. Hypertension. Renal insufficiency improving. . 05/20/19. Thrombocytopenia. Umbilical hernia. Hypertension. Renal insufficiency. COPD. . 05/21/19 thrombocytopenia. Umbilical hernia. Hypertension. Renal insufficiency. COPD Clinical Quality Measures Admission Status Admission Dx Small bowel obstruction. Incarcerated umbilical hernia. COPD. Renal insufficiency. Hyperkalemia. Hypertension DVT/VTE Risk/Contraindication: Risk Factor Score Per Nursin RFS Level Per Nursing on Admit: 4+=Very High Contraindications-Mechi: Other *list below* Other: MAY NEED SURGERY PER DR. STACK / RUSTY LEAL AT THIS TIME AURORA STACK DO May 21, 2019 08:12 POS
[2019-05-21] MEDS ORDERED: METO-333 PO (08:22)
[2019-05-21] MEDS ORDERED: TORSEMIDE 20 MG (DEMADEX) TAB PO NR (08:30)
[2019-05-21] MEDS: RT-ALBUTEROL/IPRATROPIUM 3 ML (DUONEB) VIAL IH SCH (08:38)
--- NOTE | 2019-05-21 08:57 | Pulmonary Progress Note ---
Sepsis Event Evaluation Height, Weight, BMI Height: 5'4.00" Weight: 246lbs. 2.0oz. 111.649456hq; 40.77 BMI Method:Stated Exam Exam Vital Signs Date Time Temp Pulse Resp B/P (MAP) Pulse Ox O2 Delivery O2 Flow Rate FiO2 05/21/19 07:10 35.8 81 18 174/80 (111) 98 Nasal Cannula 3.00 05/21/19 04:02 36.8 72 18 136/75 (95) 99 Nasal Cannula 3.00 05/21/19 00:00 36.7 66 18 169/83 (111) 100 Nasal Cannula 3.00 05/20/19 20:00 36.8 77 20 162/77 (105) 100 Nasal Cannula 3.00 05/20/19 20:00 Nasal Cannula 3.00 05/20/19 18:55 95 Nasal Cannula 3.00 05/20/19 16:00 36.7 65 18 179/84 (115) 98 Nasal Cannula 3.00 05/20/19 14:56 96 Nasal Cannula 3.00 05/20/19 11:41 142/80 (100) 05/20/19 11:41 97 Nasal Cannula 3.00 05/20/19 11:03 36.4 70 20 175/92 (119) 100 Nasal Cannula 3.00 I & O 05/21/19 07:00 Intake Total 880 ml Balance 880 ml Height & Weight Height: 5'4.00" Weight: 246lbs. 2.0oz. 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 L eye not reactive to light.) Skin: Normal Color, Warm/Dry Lymphatic: No Adenopathy Results Lab Laboratory Tests 05/20/19 05:00 05/20/19 05:10 05/21/19 04:55 Assessment/Plan Assessment/Plan Hx of COPD - -stable Constipation r/o SBO -Surgery following -no plan for surgery currently -small bowel follow through showed no obstruction -ng was removed -pt has had bowel movements Renal failure - improving -monitor Ventral hernia Obesity ESTRELLITA PITT DO May 21, 2019 08:57 POS
--- NOTE | 2019-05-21 08:58 | Pulmonary Progress Note ---
Subjective Time Seen by a Provider: 08:58 Subjective/Events-last exam No complications noted. Sepsis Event Evaluation Height, Weight, BMI Height: 5'4.00" Weight: 246lbs. 2.0oz. 111.943526kj; 40.77 BMI Method:Stated Exam Exam Vital Signs Date Time Temp Pulse Resp B/P (MAP) Pulse Ox O2 Delivery O2 Flow Rate FiO2 05/21/19 07:10 35.8 81 18 174/80 (111) 98 Nasal Cannula 3.00 05/21/19 04:02 36.8 72 18 136/75 (95) 99 Nasal Cannula 3.00 05/21/19 00:00 36.7 66 18 169/83 (111) 100 Nasal Cannula 3.00 05/20/19 20:00 36.8 77 20 162/77 (105) 100 Nasal Cannula 3.00 05/20/19 20:00 Nasal Cannula 3.00 05/20/19 18:55 95 Nasal Cannula 3.00 05/20/19 16:00 36.7 65 18 179/84 (115) 98 Nasal Cannula 3.00 05/20/19 14:56 96 Nasal Cannula 3.00 05/20/19 11:41 142/80 (100) 05/20/19 11:41 97 Nasal Cannula 3.00 05/20/19 11:03 36.4 70 20 175/92 (119) 100 Nasal Cannula 3.00 I & O 05/21/19 07:00 Intake Total 880 ml Balance 880 ml Height & Weight Height: 5'4.00" Weight: 246lbs. 2.0oz. 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 L eye not reactive to light.) Skin: Normal Color, Warm/Dry Lymphatic: No Adenopathy Results Lab Laboratory Tests 05/20/19 05:00 05/20/19 05:10 05/21/19 04:55 Assessment/Plan Assessment/Plan Hx of COPD - -stable Constipation r/o SBO -Surgery following -no plan for surgery currently -small bowel follow through showed no obstruction -ng was removed -pt has had bowel movements Renal failure - improving -monitor Ventral hernia Obesity Pt is ok for discharge from pulmonary standpoint. ESTRELLITA PITT DO May 21, 2019 08:58 POS
[2019-05-21] MEDS: ZINC OXIDE 16% OINT (BUTT PASTE) 113 GM TUBE TOP SCH (09:10)
[2019-05-21] MEDS: meTOprolol TARTRATE 25 MG (LOPRESSOR) TABLET PO SCH (09:10)
[2019-05-21] MEDS: PANTOPRAZOLE 40 MG (PROTONIX) TAB PO SCH (09:10)
--- NOTE | 2019-05-21 09:52 | NUR ---
DISCHARGE PLAN: patient to be discharged today back to [facility]. Dr. Carrera did not put in SKILLED orders so called him to see what he wanted to do. He is okay with skilled and asked that [facility] "send over something for him to sign, like they do all the time". I have notified SW assigned to case and [facility]. Unsure of vegetable picker time.
--- NOTE | 2019-05-21 10:40 | NUR ---
Important Message from Medicare presented, reviewed, signed and placed in patient chart. Patient voiced no intention to appeal and deny any needs or further questions at this time.
--- NOTE | 2019-05-21 11:04 | NUR ---
DISCHARGE PLANNING: Okay with Dr. Bunn for discharge. Follow-up appt made with Dr. Lemus for Sunday.
[2019-05-21 11:21] VITALS: BP 174/80
[2019-05-21 11:30] VITALS: BP 150/72
--- NOTE | 2019-05-21 11:34 | NUR ---
REPORT CALLED TO MINOO, NURSE WHO WILL ASSUME CARE OF THIS PATIENT WHEN SHE IS DISCHARGED TO [facility].
--- NOTE | 2019-05-21 12:17 | NUR ---
Pt returning to [facility] where she has resided for 3 years, She still has hope that she can resume independent living in the future. She was agreeable to returning to [facility]. She was unsure she could participate in therapies and Dr. Carrera planned on ordering skilled care initially. All physician orders, consultations and History and Physical were faxed to [facility] for their follow-up.
== END 2019-05-21 12:55 | DRG 394 ==
LOC: EDUNIT# 09:55 → ER 09:57 → ICU 12:54 → 4TH 15:19
PROVIDERS: ADMIT Family Medicine; ATTEND Family Medicine
PROC: 0D9670Z Drainage of Stomach with Drainage Device, Via Natural or Artificial Opening (ICD-10-PCS; principal; 2019-05-14)
DX: K43.6 Other and unspecified ventral hernia with obstruction, without gangrene (principal); R09.02 Hypoxemia; I13.0 Hypertensive heart and chronic kidney disease with heart failure and stage 1 through stage 4 chronic kidney disease, or unspecified chronic kidney disease; N18.4 Chronic kidney disease, stage 4 (severe); I50.9 Heart failure, unspecified; E66.01 Morbid (severe) obesity due to excess calories; Z68.41 Body mass index [BMI] 40.0-44.9, adult; E87.0 Hyperosmolality and hypernatremia; D69.6 Thrombocytopenia, unspecified; J44.9 Chronic obstructive pulmonary disease, unspecified; E87.5 Hyperkalemia; I48.91 Unspecified atrial fibrillation; R19.7 Diarrhea, unspecified; E87.8 Other disorders of electrolyte and fluid balance, not elsewhere classified; E78.00 Pure hypercholesterolemia, unspecified; E11.9 Type 2 diabetes mellitus without complications; G57.93 Unspecified mononeuropathy of bilateral lower limbs; K21.9 Gastro-esophageal reflux disease without esophagitis; M19.91 Primary osteoarthritis, unspecified site; M54.9 Dorsalgia, unspecified; E03.9 Hypothyroidism, unspecified; M10.9 Gout, unspecified; H93.19 Tinnitus, unspecified ear; F41.9 Anxiety disorder, unspecified; F32.9 Major depressive disorder, single episode, unspecified; D63.8 Anemia in other chronic diseases classified elsewhere; J30.2 Other seasonal allergic rhinitis; I87.8 Other specified disorders of veins; Z87.891 Personal history of nicotine dependence; Z90.710 Acquired absence of both cervix and uterus
CPT/HCPCS: 36415; 71045; 71046; 74018; 74019; 74176; 74250; 80048; 80053; 82728; 82962; 83540; 83690; 83735; 84100; 85007; 85025; 85027; 85045; 85379; 85384; 85610; 93005; 94640; 94664; 94760; 96361; 96374; 96375

== ENCOUNTER 2019-06-06 12:01 | Inpatient (IN) | payer MEDICARE ==
[~2019-06-06] VITALS: Ht 170 cm; Wt 116.4 kg
[2019-06-06] VITALS (9 sets, daily range): BP systolic 96–136; BP diastolic 53–88
[~2019-06-06 12:01] MED LIST changes: +CHOL20003 PO; +NYST15PO2 TOP; +PANT40TA3 PO; +TORS20TA3 PO; +ZINC113C8 TP
[2019-06-06 12:30] LABS: BASOPHILS % (AUTO) 0 % (0-10); EOSINOPHILS # (AUTO) 0.2 10^3/uL (0.0-0.3); EOSINOPHILS % (AUTO) 2 % (0-10); HEMATOCRIT 34 % (35-52); HEMOGLOBIN 9.1 G/DL (11.5-16.0); LYMPHOCYTES # (AUTO) 0.9 X 10^3 (1.0-4.0); LYMPHOCYTES % (AUTO) 7 % (12-44); MEAN CORPUSCULAR HEMOGLOBIN 28 PG (25-34); MEAN CORPUSCULAR HGB CONC 27 G/DL (32-36); MEAN CORPUSCULAR VOLUME 104 FL (80-99); MEAN PLATELET VOLUME 11.2 FL (7.4-10.4); MONOCYTES # (AUTO) 0.4 X 10^3 (0.0-1.0); MONOCYTES % (AUTO) 3 % (0-12); NEUTROPHILS # (AUTO) 12.2 X 10^3 (1.8-7.8); NEUTROPHILS % (AUTO) 89 % (42-75); PLATELET COUNT 107 10^3/uL (130-400); RED CELL DISTRIBUTION WIDTH 15.8 % (10.0-14.5); WHITE BLOOD COUNT 13.7 10^3/uL (4.3-11.0)
[2019-06-06] MEDS ORDERED: RT-ALBUTEROL/IPRATROPIUM 3 ML (DUONEB) VIAL INH ONE (12:30)
[2019-06-06 12:46] LABS: ALANINE AMINOTRANSFERASE < 6 U/L (0-55); ALBUMIN 3.6 GM/DL (3.2-4.5); ALKALINE PHOSPHATASE 127 U/L (40-136); BILIRUBIN,TOTAL 0.3 MG/DL (0.1-1.0); BUN/CREATININE RATIO 23; CALCIUM 9.2 MG/DL (8.5-10.1); CARBON DIOXIDE 26 MMOL/L (21-32); CHLORIDE 109 MMOL/L (98-107); CREATININE SERUM 2.26 MG/DL (0.60-1.30); GFR ESTIMATED 21; GLUCOSE 132 MG/DL (70-105); POTASSIUM 4.7 MMOL/L (3.6-5.0); SODIUM 146 MMOL/L (135-145); TOTAL PROTEIN 7.4 GM/DL (6.4-8.2)
--- NOTE | 2019-06-06 12:48 | ED Respiratory ---
General Chief Complaint: Altered Mental Status Stated Complaint: AMS Source: patient, EMS, old records Exam Limitations: clinical condition (CAROL FERNANDES MED STUDENT) Source: patient, EMS Exam Limitations: clinical condition (BALBINA DUBON MD) History of Present Illness Date Seen by Provider: Jun 06, 2019 Time Seen by Provider: 12:11 Initial Comments Pt presents via EMS from [facility] with AMS. Pt is poor historian but does not complaining of any pain or shortness of breath. Coughed several times during visit, especially during inspiration. Says she does not have any medical problems but she previously had been treated at [facility] for potential SBO and admitted COPD, diabetes, anemia and leg ulcers at that time. Timing/Duration: just prior to arrival Severity: moderate Prior Episodes/Possible Cause: chronic episodes Associated Symptoms: denies symptoms (CAROL FERNANDESMED STUDENT) Date Seen by Provider: Jun 06, 2019 Time Seen by Provider: 12:23 Initial Comments Here with shortness of breath and altered mental status. Patient is also acting out of character for her per report although last known well time is at least yesterday. Currently being treated with antibiotics for suspected urinary tract infection. Patient does have fairly significant pedal edema bilateral and was recently hospitalized for small bowel obstruction as well as COPD and edema with ulcerations. Patient is very poor historian. She is awake and alert and answers questions although I am not sure the validity of her answers. Denies significant complaints except for stating that she is weak and feels a bit short of breath. Timing/Duration: yesterday, getting worse Severity: moderate Prior Episodes/Possible Cause: occasional episodes Associated Symptoms: cough, shortness of breath (BALBINA DUBON MD) Allergies and Home Medications Allergies Coded Allergies: ondansetron (Verified Allergy, Unknown, 05/14/19) risperidone (Verified Allergy, Unknown, 10/16/18) simvastatin (Unverified Adverse Reaction, Unknown, 04/20/14) Home Medications Acetaminophen 325 Mg Tablet, 650 MG PO Q4H PRN for PAIN-MILD, (Reported) TAKES 2 (325MG) TABLETS Acetazolamide 250 Mg Tablet, 250 MG PO DAILY, (Reported) Allopurinol 100 Mg Tablet, 100 MG PO DAILY, (Reported) Budesonide/Formoterol Fumarate 10.2 Gm Hfa.aer.ad, 2 PUFF INH BID, (Reported) Chlorophyllin/Jennings 1 Each Tablet, 1 TAB PO BID, (Reported) Cholecalciferol (Vitamin D3) 2,000 Unit Capsule, 2,000 UNIT PO DAILY, (Reported) Dextran 70/Hypromellose 15 Ml Drops, 2 DROPS OU Q4H PRN for DRY EYES, (Reported) Garlic 1,000 Mg Capsule, 1,000 MG PO DAILY, (Reported) Glucosamine Sulfate 2Kcl 1,000 Mg Tablet, 1,000 MG PO BID, (Reported) Guaifenesin 600 Mg Tab.er.12h, 600 MG PO Q12H PRN for CONGESTION, (Reported) Hydrocodone Bit/Acetaminophen 1 Each Tablet, 1 TAB PO BID, (Reported) Ipratropium/Albuterol Sulfate 3 Ml Ampul.neb, 3 ML NEB QID, (Reported) Levothyroxine Sodium 175 Mcg Tablet, 175 MCG PO DAILY, (Reported) Mag Hydrox/Al Hydrox/Simeth 30 Ml Oral.susp, 30 ML PO UD PRN for INDIGESTION, (Reported) Metoprolol Tartrate 25 Mg Tablet, 25 MG PO BID, (Reported) HOLD FOR SBP<100, DBP <50, OR PULSE <60 Multivitamin 1 Each Tablet, 1 TAB PO DAILY, (Reported) Nystatin 15 Gm Powder, TOP BID PRN for IRRITATION, (Reported) [place] 3 Polyunsat Fatty Acids 1,000 Mg Cap, 1,000 MG PO DAILY, (Reported) Pantoprazole Sodium 40 Mg Tablet.dr, 40 MG PO DAILY, (Reported) Torsemide 20 Mg Tablet, 40 MG PO DAILY, (Reported) TAKES 2 TABLETS (40MG) TABLETS Zinc Oxide 113 Gm Cream..g., TP TID, (Reported) Patient Home Medication List Home Medication List Reviewed: Yes (CAROL FERNANDES,MED STUDENT) Home Medication List Reviewed: Yes (BALBINA DUBON MD) Review of Systems Review of Systems Constitutional: no symptoms reported (see below ) Pt is poor historian and clinical condition limited interview. (CAROL FERNANDES MED STUDENT) Constitutional: see HPI EENTM: no symptoms reported Respiratory: cough, short of breath Cardiovascular: No chest pain; edema Gastrointestinal: No abdominal pain, No vomiting Genitourinary: see HPI Unable to complete review of systems do to poor historian and clinical condition. (BALBINA DUBON MD) All Other Systems Reviewed Negative Unless Noted: Yes (BALBINA DUBON MD) Past Swcrtkv-Jrklmq-Rtzasa Hx Past Med/Social Hx: Reviewed Nursing Past Med/Soc Hx (BALBINA DUBON MD) Patient Social History Type Used: Cigarettes Recent Hopitalizations: Yes (CAROL FERNANDES MED STUDENT) Immunizations Up To Date Tetanus Booster (TDap): More than 5yrs Date of Pneumonia Vaccine: Jul 17, 2018 Date of Influenza Vaccine: Mar 10, 2019 (CAROL FERNANDES MED STUDENT) Seasonal Allergies Seasonal Allergies: Yes (CAROL FERNANDES MED STUDENT) Past Medical History Surgeries: Yes Eye Surgery, Hysterectomy, Oophorectomy, Orthopedic, Tracheostomy Respiratory: Yes Asthma, Pneumonia, COPD Cardiac: Yes (PERICARDIAL WINDOW 1993) Atrial Fibrillation, Chronic Edema/Swelling, High Cholesterol, Hypertension Neurological: Yes (NEUROPATHY IN FEET) Neuropathy 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 Disorders: Yes (ENDOMETRIAL HYPERPLASIA) 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: Hysterectomy, Menopausal Sexually Transmitted Disease: No Genitourinary: Yes (ON DIALYSIS WHILE SICK WITH PNEUMONIA/MULTIORGAN FAILURE) Renal Failure Gastrointestinal: Yes Abdominal Hernia, Gastroesophageal Reflux Musculoskeletal: Yes Arthritis, Chronic Back Pain Endocrine: Yes (MORBID OBESITY) Hypothyroidsim HEENT: Yes (HX OF TRACH; LEFT EYE SURGERY) Tinnitis Cancer: No Psychosocial: Yes Anxiety, Depression Integumentary: Yes (LEG ULCERS; VENOUS STASIS ) Blood Disorders: Yes (ANEMIA) Adverse Reaction/Blood Tranf: No (CAROL FERNANDES MED STUDENT) Family Medical History Reviewed Nursing Family Hx (BALBINA DUBON MD) Alzheimer's disease Arthritis Asthma Completed stroke Dementia Diabetes mellitus Glaucoma Hypertension Kidney disease Myocardial infarction Psychosocial problem Respiratory disorder Severe allergy Thyroid disease Visual disorder No Family History of: AIDS Abdominal aortic aneurysm Beltrami's disease Alcoholism Aphasia Cancer of mouth Cardiovascular disease Cataracts Colon cancer Congenital disease Congenital heart disease Coronary thrombosis Cystic fibrosis Deafness or hearing loss Drug abuse Dysphasia Fibrocystic disease of breast Gastroenteritis Headache disorder Hypercholesterolemia Infertility Neoplasm Not obtainable due to adoption Osteoporosis Parkinson's disease Prostate cancer Seizure disorder Tuberculosis Diabetes, Hypertension (CAROL FERNANDES,MED STUDENT) Physical Exam Vital Signs - First Documented 06/06/19 06/06/19 12:05 12:36 Temp 36.4 Pulse 99 Resp 18 B/P (MAP) 135/99 (111) Pulse Ox 99 O2 Delivery Nasal Cannula O2 Flow Rate 6.00 FiO2 98 (BALBINA DUBON MD) Capillary Refill : (CAROL FERNANDES,MED STUDENT) Height: 5'4.00" Weight: 246lbs. 2.0oz. 111.833148op; 40.77 BMI Method:Stated General Appearance: WD/WN, no apparent distress, obese Eyes: Left Eye Abnormal Pupil (Farson L pupil ) HEENT: TMs normal, pharyngeal erythema, other (Beefy red nasal septum ) Neck: non-tender, supple Respiratory: chest non-tender, no respiratory distress, no accessory muscle us e, crackles, rales Cardiovascular: No normal peripheral pulses; regular rate, rhythm, no gallop, no murmur Extremities: calf tenderness, inflammation, pedal edema, swelling, other (multiple breakdowns in epidermis, scaly and weeping LE b/l. +4 pitting pretibial edema ) Neurologic/Psychiatric: alert, oriented x 3 Skin: normal color, warm/dry Lymphatic: no adenopathy (anterior/posterior cervical, supra/infraclavicular, axilla ) (CAROL FERNANDES,MED STUDENT) General Appearance: WD/WN, no apparent distress, obese Neck: full range of motion, supple Respiratory: no respiratory distress, no accessory muscle use, rales Cardiovascular: regular rate, rhythm, no murmur Gastrointestinal: non tender, soft Extremities: no calf tenderness, pedal edema (4+ to knees bilateral) Neurologic/Psychiatric: alert, other (awake and answers some questions and follows. Seems confused) Skin: warm/dry, other (erythema and blisters noted to bilateral lower extremities in edematous areas.) (BALBINA DUBON MD) Focused Exam Lactate Level 06/06/19 12:05: Lactic Acid Level 0.54 (BALBINA DUBON MD) Lactic Acid Level Laboratory Tests Test 06/06/19 12:05 Lactic Acid Level 0.54 MMOL/L (0.50-2.00) (BALBINA DUBON MD) Progress/Results/Core Measures Suspected Sepsis SIRS Temperature: Pulse: Respiratory Rate: Laboratory Tests 06/06/19 12:05: White Blood Count 13.7H Blood Pressure / Mean: 06/06/19 12:05: Lactic Acid Level 0.54 Laboratory Tests 06/06/19 12:05: Platelet Count 107L (LEONIDMARK,CAROL,MED STUDENT) Results/Orders Lab Results Laboratory Tests Test 06/06/19 12:05 06/06/19 14:05 06/06/19 15:01 Range/Units White Blood Count 13.7 H 4.3-11.0 10^3/uL Red Blood Count 3.24 L 4.35-5.85 10^6/uL Hemoglobin 9.1 L 11.5-16.0 G/DL Hematocrit 34 L 35-52 % Mean Corpuscular Volume 104 H 80-99 FL Mean Corpuscular Hemoglobin 28 25-34 PG Mean Corpuscular Hemoglobin Concent 27 L 32-36 G/DL Red Cell Distribution Width 15.8 H 10.0-14.5 % Platelet Count 107 L 130-400 10^3/uL Mean Platelet Volume 11.2 H 7.4-10.4 FL Neutrophils (%) (Auto) 89 H 42-75 % Lymphocytes (%) (Auto) 7 L 12-44 % Monocytes (%) (Auto) 3 0-12 % Eosinophils (%) (Auto) 2 0-10 % Basophils (%) (Auto) 0 0-10 % Neutrophils # (Auto) 12.2 H 1.8-7.8 X 10^3 Lymphocytes # (Auto) 0.9 L 1.0-4.0 X 10^3 Monocytes # (Auto) 0.4 0.0-1.0 X 10^3 Eosinophils # (Auto) 0.2 0.0-0.3 10^3/uL Basophils # (Auto) 0.0 0.0-0.1 10^3/uL Neutrophils % (Manual) 86 % Lymphocytes % (Manual) 10 % Monocytes % (Manual) 0 % Eosinophils % (Manual) 2 % Basophils % (Manual) 0 % Band Neutrophils 2 % Anisocytosis SLIGHT Macrocytosis SLIGHT Sodium Level 146 H 135-145 MMOL/L Potassium Level 4.7 3.6-5.0 MMOL/L Chloride Level 109 H 98-107 MMOL/L Carbon Dioxide Level 26 21-32 MMOL/L Anion Gap 11 5-14 MMOL/L Blood Urea Nitrogen 51 H 7-18 MG/DL Creatinine 2.26 H 0.60-1.30 MG/DL Estimat Glomerular Filtration Rate 21 BUN/Creatinine Ratio 23 Glucose Level 132 H 70-105 MG/DL Lactic Acid Level 0.54 0.50-2.00 MMOL/L Calcium Level 9.2 8.5-10.1 MG/DL Corrected Calcium 9.5 8.5-10.1 MG/DL Total Bilirubin 0.3 0.1-1.0 MG/DL Aspartate Amino Transf (AST/SGOT) 8 5-34 U/L Alanine Aminotransferase (ALT/SGPT) < 6 0-55 U/L Alkaline Phosphatase 127 40-136 U/L B-Type Natriuretic Peptide 750.3 H <100.0 PG/ML Total Protein 7.4 6.4-8.2 GM/DL Albumin 3.6 3.2-4.5 GM/DL Urine Color YELLOW Urine Clarity CLEAR Urine pH 5.5 5-9 Urine Specific [place] 1.020 1.016-1.022 Urine Protein TRACE NEGATIVE Urine Glucose (UA) NEGATIVE NEGATIVE Urine Ketones NEGATIVE NEGATIVE Urine Nitrite NEGATIVE NEGATIVE Urine Bilirubin NEGATIVE NEGATIVE Urine Urobilinogen 0.2 < = 1.0 MG/DL Urine Leukocyte Esterase NEGATIVE NEGATIVE Urine RBC (Auto) NEGATIVE NEGATIVE Urine RBC RARE /HPF Urine WBC 0-2 /HPF Urine Squamous Epithelial Cells 10-25 H /HPF Urine Crystals PRESENT H /LPF Urine Amorphous Sediment FEW OANH URATES H /LPF Urine Bacteria NEGATIVE /HPF Urine Casts PRESENT /LPF Urine Hyaline Casts 2-5 H /LPF Urine Mucus NEGATIVE /LPF Urine Culture Indicated NO (BALBINA DUBON MD) Micro Results Microbiology 06/06/19 Influenza Types A,B Antigen (QUYEN) - Final, Complete (BALBINA DUBON MD) My Orders Orders - BALBINA DUBON MD Arterial Blood Gas (06/06/19 14:42) Furosemide Injection (Lasix Injection) (06/06/19 14:42) (BALBINA DUBON MD) Medications Given in ED Current Medications Medications Dose Ordered Sig/Inderjit Route Start Time Stop Time Status Last Admin Dose Admin Albuterol/ Ipratropium 3 ml ONCE ONCE INH 06/06/19 12:30 06/06/19 12:31 DC 06/06/19 12:35 3 ML (BALBINA DUBON MD) Vital Signs/I&O 06/06/19 06/06/19 12:05 12:36 Temp 36.4 Pulse 99 Resp 18 B/P (MAP) 135/99 (111) Pulse Ox 99 O2 Delivery Nasal Cannula O2 Flow Rate 6.00 FiO2 98 (BALBINA DUBON MD) Vital Signs/I&O Capillary Refill : (CAROL FERNANDES,MED STUDENT) Progress Note : Progress Note I have seen and evaluated the patient and agree with above except as indicated. Have directed the plan of care. IV, labs, EKG, chest x-ray, UA, CT head and DuoNeb treatment ordered. Monitor patient. 1405: I have had long conversations with the patient and she does not want to have CT scan. Initially she [facility] although she has fairly significant disorders and her labs and I am concerned about her health. Her cousin is here and talked with her and after conversation with both the patient and her cousin, patient has elected that she will allow for us to continue but she still does not want CT scan of the head. This will be canceled. UA has been collected via straight catheter. Monitor patient. 1436: I did discuss the case with Dr. Morgan and he has accepted the patient for admission due to heart failure and acute renal failure. Patient accepts admission. He is requested ABG which I agree with. We will try to get her to do that. 1502: Patient is more confused. She is normally on 3 L of oxygen and she did have to have an increase for a while but she still appears short of breath. I talked to her and her cousin. She has had to be on BiPAP previously for CO2 retention. We will go ahead and initiate that now while getting ABG she is becoming more confused. I did update Dr. Morgan. Patient to be admitted. I do believe she is still stable for admission to medical floor. Admit, inpatient status. Patient family agree with plan. Lasix 40 mg IV is been given. (BALBINA DUBON MD) ECG Initial ECG Impression Date: Jun 06, 2019 Initial ECG Impression Time: 13:06 Initial ECG Rate: 79 Comment Sinus rhythm with normal axis. No evidence of ST elevation MD. Artifact noted. Unchanged from previous of 05/14/19. Interpreted by me. (BALBINA DUBON MD) Diagnostic Imaging Diagonstic Imaging: Xray Plain Films/CT/US/NM/MRI: chest Comments [facility]. POS [place], [place] POS NAME: EDDY VALERO [facility] REC#: [id number] PT STATUS: REG ER : 1950 PHYSICIAN: ABDULKADIR OVIEDO ASSISTANT THERAPY AIDE ADMIT DATE: 06/06/19/ER Draft POSDate of Exam:06/06/19 CHEST 1 VIEW, AP/PA ONLY INDICATION: Altered mental status. TECHNIQUE: Single view chest 12:44 PM. CORRELATION STUDY: 05/19/2019 FINDINGS: Heart size is enlarged. Vasculature is increased. Scattered pulmonary parenchymal densities noted throughout both lung pal[place]. Most pronounced at the lung bases where there is presence of bilateral pleural effusions. Surgical clips projecting over the mid chest, epigastric region and over the right mid chest. IMPRESSION: 1. Cardiac enlargement increasing vascular congestion present. Scattered pulmonary parenchymal densities are present favoring probable edema with superimposed infiltrate not excluded. Small effusions also more prominent. Dictated on workstation # [id number] Dict: 06/06/19 1251 Trans: 06/06/19 1311 [facility] [id number] Interpreted by: JANKI DUNN DO Electronically signed by: (BALBINA DUBON MD) Departure Communication (Admissions) Time/Spoke to Admitting Phy: 14:36 (BALBINA DUBON MD) Impression Primary Impression: CHF (congestive heart failure) Qualified Codes: I50.9 - Heart failure, unspecified Additional Impressions: Acute renal failure (ARF) Qualified Codes: N17.9 - Acute kidney failure, unspecified Altered mental status Qualified Codes: R41.82 - Altered mental status, unspecified Hypercapnic respiratory failure Qualified Codes: J96.02 - Acute respiratory failure with hypercapnia Disposition: ADMITTED INPATIENT Condition: Stable Admissions Decision to Admit Reason: Admit from ER (General) Decision to Admit/Date: Jun 06, 2019 Time/Decision to Admit Time: 14:36 (BALBINA DUBON MD) Departure-Patient Inst. Referrals: AURORA STACK DO (PCP/Family) Primary Care Physician CAROL FERNANDES MED STUDENT Jun 06, 2019 12:48 BALBINA FONG MD Jun 06, 2019 13:26 POS
[2019-06-06 12:53] LABS: ANISOCYTOSIS SLIGHT; BAND NEUTROPHILS 2 %; BASOPHILS % (MANUAL) 0 %; EOSINOPHILS % (MANUAL) 2 %; LYMPHOCYTES % (MANUAL) 10 %; MONOCYTES % (MANUAL) 0 %; NEUTROPHILS % (MANUAL) 86 %
--- NOTE | 2019-06-06 13:12 | Diagnostic Imaging Report ---
INDICATION: Altered mental status. TECHNIQUE: Single view chest 12:44 PM. CORRELATION STUDY: 05/19/2019 FINDINGS: Heart size is enlarged. Vasculature is increased. Scattered pulmonary parenchymal densities noted throughout both lung pal[place]. Most pronounced at the lung bases where there is presence of bilateral pleural effusions. Surgical clips projecting over the mid chest, epigastric region and over the right mid chest. IMPRESSION: 1. Cardiac enlargement increasing vascular congestion present. Scattered pulmonary parenchymal densities are present favoring probable edema with superimposed infiltrate not excluded. Small effusions also more prominent. Dictated by: Dictated on workstation # [id number]
--- NOTE | 2019-06-06 13:52 | NUR ---
PT REFUSING CT SCAN, PT REFUSING TO GIVE UA. DR DUBON SPEAKING TO DPOA
[2019-06-06 14:14] LABS: BILIRUBIN,URINE NEGATIVE (NEGATIVE); CLARITY,URINE CLEAR; COLOR,URINE YELLOW; GLUCOSE, URINE (UA) NEGATIVE (NEGATIVE); KETONES,URINE NEGATIVE (NEGATIVE); LEUKOCYTE ESTERASE ,URINE NEGATIVE (NEGATIVE); NITRITE,URINE NEGATIVE (NEGATIVE); PH,URINE 5.5 (5-9); PROTEIN,URINE TRACE (NEGATIVE)
[2019-06-06 14:23] LABS: AMORPHOUS SEDIMENT,UR FEW AMOR URATES /LPF; BACTERIA,URINE NEGATIVE /HPF; RBC,URINE RARE /HPF; WBC,URINE 0-2 /HPF
[2019-06-06] MEDS ORDERED: FUROSEMIDE 40 MG/4 ML INJ (LASIX) IV STA (14:42)
[2019-06-06 15:13] LABS: ABG BASE EXCESS 1.2 MMOL/L (-2.5-2.5); ABG OXYGEN SATURATION 91 % (94-100); ABG PO2 62 MMHG (79-93); ABG TCO2 31.5 MMOL/L (21.0-31.0)
[2019-06-06 15:17] LABS: ABG PCO2 80 MMHG (35-45); ABG PH 7.18 (7.37-7.43); ALLENS TEST POSITIVE; INSPIRED O2 3 L; PATIENT TEMP 97.4; VENTILATOR NO
--- NOTE | 2019-06-06 16:00 | NUR ---
EDDY VALERO admitted to room 425-1, with an admitting diagnosis of AMS, on 06/06/19 from ER via stretcher, accompanied by staff .EDDY VALERO introduced to surroundings, call light, bed controls, phone, TV, temperature control, lights, meal times, smoking policy, visitor policy, side rail policy, bathrooms and showers. Patient Rights given to patient in the handbook. EDDY VALERO verbalizes understanding that [facility] is not responsible for the loss or damage to any personal effects or valuables that are kept in the patients posession during their hospitalization. The following Patient Care Plans and discharge were discussed with the patient. EDDY VALERO verbalizes understanding of Interdisciplinary Patient Education. Patient was informed about the Rapid Response Team and its purpose. reinforcement needed teaching - AMS
[2019-06-06] MEDS ORDERED: DOXY100T2 PO (16:25)
[2019-06-06] MEDS ORDERED: CEPH500C PO (16:25)
--- NOTE | 2019-06-06 16:25 | NUR ---
UPDATED MED REC WITH PHYSICIAN'S ORDERS FROM [facility]
[2019-06-06] MEDS ORDERED: RT-ALBUTEROL/IPRATROPIUM 3 ML (DUONEB) VIAL INH PRN (17:15)
[2019-06-06] MEDS ORDERED: AZITHROMYCIN INJECTION 500 MG in NS (IVPB) 250 ML IV NR (17:30)
[2019-06-06] MEDS: cefTRIAXone FOR IV USE 2,000 MG in WATER (STERILE) FOR INJECTION 20 ML IV SCH (17:59)
--- NOTE | 2019-06-06 18:02 | NUR ---
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
--- NOTE | 2019-06-06 18:58 | NUR ---
Received pt from [facility] Price, from 4th floor, bedside report received, see interventions for assessment.
[2019-06-06] MEDS: RT-ALBUTEROL/IPRATROPIUM 3 ML (DUONEB) VIAL INH SCH ×2 (19:01→22:34)
--- NOTE | 2019-06-06 20:15 | NUR ---
Pt yelling, moaning, stating she is afraid of everything. This RN at bedside, therapeutic communication attempted. Pt requesting to see cousin, Maryan, this RN offered to call Maryan, pt stops yelling and states that it is too late for Maryan to be contacted. Therapeutic communication attempted again, diversional activities offered. Pt labile in emotions, will ask questions and answer appropriately, then scream and yell and moan. Will continue to monitor.
[2019-06-06] MEDS: CATHETER FLUSH 10 ML SYR IV SCH (22:03)
[2019-06-07] VITALS (26 sets, daily range): BP systolic 120–204; BP diastolic 54–96
[2019-06-07 01:14] LABS: ABG BASE EXCESS 1.7 MMOL/L (-2.5-2.5); ABG OXYGEN SATURATION 72 % (94-100); ABG PO2 45 MMHG (79-93); ABG TCO2 32.6 MMOL/L (21.0-31.0)
[2019-06-07 01:15] LABS: ABG PCO2 86 MMHG (35-45); ABG PH 7.16 (7.37-7.43); ALLENS TEST YES-POS; INSPIRED O2 40%; VENTILATOR NO
[2019-06-07 01:16] LABS: PATIENT TEMP 36.2
[2019-06-07] MEDS: RT-ALBUTEROL/IPRATROPIUM 3 ML (DUONEB) VIAL INH SCH ×5 (01:36→18:54)
[2019-06-07 03:19] LABS: BASOPHILS % (AUTO) 0 % (0-10); EOSINOPHILS # (AUTO) 0.1 10^3/uL (0.0-0.3); EOSINOPHILS % (AUTO) 1 % (0-10); HEMATOCRIT 30 % (35-52); LYMPHOCYTES # (AUTO) 0.7 X 10^3 (1.0-4.0); LYMPHOCYTES % (AUTO) 10 % (12-44); MEAN CORPUSCULAR HEMOGLOBIN 28 PG (25-34); MEAN CORPUSCULAR HGB CONC 26 G/DL (32-36); MEAN CORPUSCULAR VOLUME 106 FL (80-99); MEAN PLATELET VOLUME 11.2 FL (7.4-10.4); MONOCYTES # (AUTO) 0.3 X 10^3 (0.0-1.0); MONOCYTES % (AUTO) 4 % (0-12); NEUTROPHILS # (AUTO) 6.2 X 10^3 (1.8-7.8); NEUTROPHILS % (AUTO) 85 % (42-75); PLATELET COUNT 86 10^3/uL (130-400); RED CELL DISTRIBUTION WIDTH 15.4 % (10.0-14.5); WHITE BLOOD COUNT 7.3 10^3/uL (4.3-11.0)
[2019-06-07 03:20] LABS: ABG BASE EXCESS 1.7 MMOL/L (-2.5-2.5); ABG OXYGEN SATURATION 86 % (94-100); ABG PCO2 69 MMHG (35-45); ABG PO2 54 MMHG (79-93); ABG TCO2 30.5 MMOL/L (21.0-31.0)
[2019-06-07 03:23] LABS: ABG PH 7.24 (7.37-7.43)
[2019-06-07 03:24] LABS: ALLENS TEST YES-POS; INSPIRED O2 30%; VENTILATOR NO
[2019-06-07 03:48] LABS: ALBUMIN 3.1 GM/DL (3.2-4.5); BILIRUBIN,TOTAL 0.2 MG/DL (0.1-1.0); CREATININE SERUM 2.34 MG/DL (0.60-1.30); MAGNESIUM 2.1 MG/DL (1.6-2.4); PHOSPHORUS 4.7 MG/DL (2.3-4.7); POTASSIUM 4.4 MMOL/L (3.6-5.0); TOTAL PROTEIN 6.3 GM/DL (6.4-8.2)
[2019-06-07] MEDS: CATHETER FLUSH 10 ML SYR IV SCH ×3 (03:55→22:05)
[2019-06-07] MEDS ORDERED: FUROSEMIDE 40 MG/4 ML INJ (LASIX) IV SCH (04:00)
[2019-06-07] MEDS ORDERED: methylPREDNISolone 125 MG (Solu-MEDROL) VIAL IVP ONE (04:15)
--- NOTE | 2019-06-07 04:15 | Pulmonary Consultation ---
History of Present Illness History of Present Illness Date Seen by Provider: Jun 07, 2019 Date of Admission Allergies and Home Medications Allergies Coded Allergies: ondansetron (Verified Allergy, Unknown, 05/14/19) risperidone (Verified Allergy, Unknown, 10/16/18) simvastatin (Unverified Adverse Reaction, Unknown, 04/20/14) Home Medications Acetaminophen 325 Mg Tablet, 650 MG PO Q4H PRN for PAIN-MILD, (Reported) TAKES 2 (325MG) TABLETS Acetazolamide 250 Mg Tablet, 250 MG PO DAILY, (Reported) Allopurinol 100 Mg Tablet, 100 MG PO DAILY, (Reported) Budesonide/Formoterol Fumarate 10.2 Gm Hfa.aer.ad, 2 PUFF INH BID, (Reported) Cephalexin 500 Mg Capsule, 500 MG PO TID, (Reported) 7 DAY SUPPLY STOP DATE 06-11-19 Chlorophyllin/[place] 1 Each Tablet, 1 TAB PO BID, (Reported) Cholecalciferol (Vitamin D3) 2,000 Unit Capsule, 2,000 UNIT PO DAILY, (Reported) Dextran 70/Hypromellose 15 Ml Drops, 2 DROPS OU Q4H PRN for DRY EYES, (Reported) Doxycycline Hyclate 100 Mg Tablet, 100 MG PO BID, (Reported) 7 DAY SUPPLY STOP DATE 06-11-19 Garlic 1,000 Mg Capsule, 1,000 MG PO DAILY, (Reported) Glucosamine Sulfate 2Kcl 1,000 Mg Tablet, 1,000 MG PO BID, (Reported) Guaifenesin 600 Mg Tab.er.12h, 600 MG PO Q12H PRN for CONGESTION, (Reported) Hydrocodone Bit/Acetaminophen 1 Each Tablet, 1 TAB PO BID, (Reported) Ipratropium/Albuterol Sulfate 3 Ml Ampul.neb, 3 ML NEB QID, (Reported) Levothyroxine Sodium 175 Mcg Tablet, 175 MCG PO DAILY, (Reported) Mag Hydrox/Al Hydrox/Simeth 30 Ml Oral.susp, 30 ML PO UD PRN for INDIGESTION, (Reported) Metoprolol Tartrate 25 Mg Tablet, 25 MG PO BID, (Reported) HOLD FOR SBP<100, DBP <50, OR PULSE <60 Multivitamin 1 Each Tablet, 1 TAB PO DAILY, (Reported) Nystatin 15 Gm Powder, TOP BID PRN for IRRITATION, (Reported) [place] 3 Polyunsat Fatty Acids 1,000 Mg Cap, 1,000 MG PO DAILY, (Reported) Pantoprazole Sodium 40 Mg Tablet.dr, 40 MG PO DAILY, (Reported) Torsemide 20 Mg Tablet, 40 MG PO DAILY, (Reported) TAKES 2 TABLETS (40MG) TABLETS Zinc Oxide 113 Gm Cream..g., TP TID, (Reported) Past Ahcwzxt-Irenbv-Fbyzni Hx Past Med/Social Hx: Reviewed Nursing Past Med/Soc Hx Patient Social History Alcohol Use: Denies Use Recreational Drug Use: No Smoking Status: Former Smoker Type Used: Cigarettes Recent Foreign Travel: No Contact w/Someone Who Travel: No Recent Infectious Disease Expo: No Recent Hopitalizations: No Immunizations Up To Date Tetanus Booster (TDap): More than 5yrs Date of Pneumonia Vaccine: Jul 17, 2018 Date of Influenza Vaccine: Mar 10, 2019 Seasonal Allergies Seasonal Allergies: Yes Past Medical History Surgeries: Yes Eye Surgery, Hysterectomy, Oophorectomy, Orthopedic, Tracheostomy Respiratory: Yes Asthma, Pneumonia, COPD Currently Using CPAP: No Currently Using BIPAP: No Cardiac: Yes (PERICARDIAL WINDOW 1993) Atrial Fibrillation, Chronic Edema/Swelling, High Cholesterol, Hypertension Neurological: Yes (NEUROPATHY IN FEET) Neuropathy 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 Disorders: Yes (ENDOMETRIAL HYPERPLASIA) 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: Hysterectomy, Menopausal Sexually Transmitted Disease: No Genitourinary: Yes (ON DIALYSIS WHILE SICK WITH PNEUMONIA/MULTIORGAN FAILURE) Renal Failure Gastrointestinal: Yes Abdominal Hernia, Gastroesophageal Reflux Musculoskeletal: Yes Arthritis, Chronic Back Pain Endocrine: Yes (MORBID OBESITY) Hypothyroidsim HEENT: Yes (HX OF TRACH; LEFT EYE SURGERY) Tinnitis Cancer: No Psychosocial: Yes Anxiety, Depression Integumentary: Yes (LEG ULCERS; VENOUS STASIS ) Blood Disorders: Yes (ANEMIA) Adverse Reaction/Blood Tranf: No Family Medical History Reviewed Nursing Family Hx Alzheimer's disease Arthritis Asthma Completed stroke Dementia Diabetes mellitus Glaucoma Hypertension Kidney disease Myocardial infarction Psychosocial problem Respiratory disorder Severe allergy Thyroid disease Visual disorder No Family History of: AIDS Abdominal aortic aneurysm [place]'s disease Alcoholism Aphasia Cancer of mouth Cardiovascular disease Cataracts Colon cancer Congenital disease Congenital heart disease Coronary thrombosis Cystic fibrosis Deafness or hearing loss Drug abuse Dysphasia Fibrocystic disease of breast Gastroenteritis Headache disorder Hypercholesterolemia Infertility Neoplasm Not obtainable due to adoption Osteoporosis Parkinson's disease Prostate cancer Seizure disorder Tuberculosis No Pertinent Family Hx Sepsis Event Evaluation Height, Weight, BMI Height: 5'4.00" Weight: 246lbs. 2.0oz. 111.268530qk; 39.51 BMI Method:Stated Exam Exam Vital Signs Date Time Temp Pulse Resp B/P (MAP) Pulse Ox O2 Delivery O2 Flow Rate FiO2 06/07/19 03:08 37.0 06/07/19 03:00 81 23 136/69 (91) 95 NIV Bilevel 30.00 06/07/19 02:00 89 24 123/54 (77) 95 NIV Bilevel 30.00 06/07/19 01:36 97 36 95 30.00 06/07/19 01:36 NIV Bilevel 30.00 06/07/19 01:00 90 06/07/19 01:00 87 17 125/58 (80) 96 NIV Bilevel 40.00 06/07/19 01:00 36.5 06/07/19 00:00 89 18 123/55 (77) 94 NIV Bilevel 40.00 06/07/19 00:00 NIV Bilevel 40 06/06/19 23:00 89 21 121/53 (75) 97 NIV Bilevel 40.00 06/06/19 22:34 85 20 95 40.00 06/06/19 22:18 NIV Bilevel 40.00 06/06/19 22:00 89 20 121/61 (81) 98 NIV Bilevel 50.00 06/06/19 21:00 90 18 121/60 (80) 99 NIV Bilevel 50.00 06/06/19 20:00 96 15 132/79 (96) 99 NIV Bilevel 50.00 06/06/19 20:00 NIV Bilevel 50 06/06/19 20:00 36.1 06/06/19 19:19 95 06/06/19 19:01 95 20 100 50.00 06/06/19 19:00 36.6 98 24 136/75 (95) 96 NIV Bilevel 50.00 06/06/19 18:25 NIV Bilevel 06/06/19 16:50 92 27 60.00 06/06/19 16:50 36.4 92 60 06/06/19 15:40 36.4 102 23 128/88 100 NIV Bilevel 06/06/19 15:40 36.4 102 23 128/88 (101) 100 NIV Bilevel 06/06/19 15:31 36.4 99 18 135/99 (111) 99 Nasal Cannula 6.00 06/06/19 15:24 100.00 06/06/19 12:36 Nasal Cannula 6.00 98 06/06/19 12:05 36.4 99 18 135/99 (111) 99 I & O 06/07/19 07:00 Intake Total 300 ml Output Total 400 ml Balance -100 ml Height & Weight Height: 5'4.00" Weight: 246lbs. 2.0oz. 111.157501rw; 39.51 BMI Method:Stated Capillary Refill: Less Than 3 Seconds Gastrointestinal: non tender, soft Results Lab Laboratory Tests 06/06/19 12:05 06/07/19 02:39 Assessment/Plan Assessment/Plan Acute on chronic respiratory failure -Currently requiring BiPAP -Currently Diastolic CHF - Last Echo in 2017 showed normal EF -Repeat echo -Currently on Lasix 40mg BID -Monitor Cr close Metabolic encephalopathy PNA -Rocephin/Azithromycin -Alvares cultures pending -No fever Acute on chronic renal insuff - Monitor Cr close -Base line Cr around 1.4 -Currently on Lasix Anemia -Monitor ESTRELLITA PITT DO Jun 07, 2019 04:15
[2019-06-07] MEDS: ENOXAPARIN 40 MG/0.4 ML (LOVENOX) SYR SC SCH (04:59)
[2019-06-07] MEDS: POTASSIUM CL 10MEQ/50ML IVPB 50 ML IV SCH (05:02)
[2019-06-07] MEDS: CATHETER FLUSH 10 ML SYR IV PRN (05:02)
[2019-06-07] MEDS: MAGNESIUM 1 GM/100 ML IVPB 100 ML IV SCH (05:02)
[2019-06-07] MEDS: KCL 20 MEQ TAB (K-DUR) PO SCH (05:03)
[2019-06-07] MEDS ORDERED: methylPREDNISolone 40 MG/ML (Solu-MEDROL) VIAL IV SCH (06:00)
--- NOTE | 2019-06-07 06:26 | NUR ---
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 This RN instructed pt on lab work at 0800, pt states "can you put me out for that?". Therapeutic communication attempted again, advised pt that would not be a possibility, this RN encouraged pt on compliance for improved health. Pt states "You and I both know that I am not getting better." This RN asked if pt would rather be a DNR, pt loudly stated, "NO! NEVER!" This RN attempted to reassure pt, reinforcement needed.
[2019-06-07] MEDS ORDERED: PANTOPRAZOLE 40 MG (PROTONIX) VIAL IV SCH (09:00)
[2019-06-07] MEDS: AZITHROMYCIN 250 MG TAB (ZITHROMAX) PO SCH (09:36)
--- NOTE | 2019-06-07 09:53 | Diagnostic Imaging Report ---
INDICATION: Dyspnea. Portable chest obtained at 03:22 a.m. is compared to the previous day. FINDINGS: There is cardiomegaly. There is mild infiltrate in the right lung base. There is no pneumothorax or pleural fluid or new abnormality. Density overlying the left midlung is artifactual from overlying device. IMPRESSION: Cardiomegaly and mild central vascular prominence. No change in right basilar infiltrate. There is perhaps minimal pleural fluid on both sides. Artifactual density overlying left hemithorax. Dictated by: Dictated on workstation # [id number]
[2019-06-07] MEDS: LACTATED RINGERS 1,000 ML IV SCH ×2 (10:00→19:22)
[2019-06-07] MEDS ORDERED: ACETAMINOPHEN 325 MG TABLET PO PRN (13:00)
[2019-06-07] MEDS ORDERED: POLYETHYLENE GLYCOL 17 GM (MIRALAX) PACK PO PRN (13:00)
[2019-06-07] MEDS ORDERED: PROCHLORPERAZINE 10 MG/2ML INJ (COMPAZINE) IV PRN (13:00)
[2019-06-07] MEDS ORDERED: PROCHLORPERAZINE 10 MG TAB (COMPAZINE) PO PRN (13:00)
[2019-06-07] MEDS ORDERED: HALOPERIDOL 2 MG (HALDOL) TABLET PO PRN (13:00)
[2019-06-07] MEDS ORDERED: BISACODYL 10 MG SUPP (DULCOLAX) PR PRN (13:00)
[2019-06-07 13:30] LABS: ABG BASE EXCESS -0.9 MMOL/L (-2.5-2.5); ABG OXYGEN SATURATION 94 % (94-100); ABG PCO2 69 MMHG (35-45); ABG PO2 76 MMHG (79-93)
[2019-06-07 13:33] LABS: ALLENS TEST YES-POS
[2019-06-07 13:34] LABS: INSPIRED O2 35%; PATIENT TEMP 37.8; VENTILATOR NO
--- NOTE | 2019-06-07 13:43 | History & Physical-Hospitalist ---
History of Present Illness HPI/Chief Complaint Jennifer Woodall is a 68-year-old female with past medical history of hypertension, COPD, CKD, heart failure with preserved ejection fraction, morbid obesity, who presented with altered mental status. I was called to evaluate her on the floor after arrival. She was wearing her BiPAP but was fidgeting and attempting to remove it. I spoke with her and recommended that she keep it on and she was redirectable.she was unable to provide any other meaningful history. There are no family members at the bedside at that time. The workup in the emergency room revealed that she had a an acute hypercapnic respiratory failure, as well as an acute kidney injury, and pneumonia. Source: patient Exam Limitations: clinical condition Date Seen 06/06/19 Time Seen by a Provider: 17:00 Attending Physician Marlon Armijo MD PCP Juan Carrera DO Referring Physician Date of Admission Jun 06, 2019 at 14:54 Home Medications & Allergies Home Medications Reviewed patient Home Medication Reconciliation performed by pharmacy medication reconciliations firestopper technician and/or nursing. Patients Allergies have been reviewed. Allergies Allergies Coded Allergies ondansetron (Verified Allergy, Unknown, 05/14/19) risperidone (Verified Allergy, Unknown, 10/16/18) simvastatin (Unverified Adverse Reaction, Unknown, 04/20/14) Past Aaarexa-Mpvuni-Pobmec Hx Past Med/Social Hx: Reviewed Nursing Past Med/Soc Hx Patient Social History Alcohol Use: Denies Use Recreational Drug Use: No Smoking Status: Former Smoker Type Used: Cigarettes Physical Abuse Screen: No Sexual Abuse: No Recent Foreign Travel: No Contact w/other who traveled: No Recent Hopitalizations: No Recent Infectious Disease Expo: No Immunizations Up To Date Tetanus Booster (TDap): More than 5yrs Date of Pneumonia Vaccine: Jul 17, 2018 Date of Influenza Vaccine: Mar 10, 2019 Seasonal Allergies Seasonal Allergies: Yes Past Medical History Surgeries: Eye Surgery, Hysterectomy, Oophorectomy, Orthopedic, Tracheostomy Currently Using CPAP: No Currently Using BIPAP: No Cardiac: Atrial Fibrillation, Chronic Edema/Swelling, High Cholesterol, Hypertension Neurological: Neuropathy 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: Yes (ENDOMETRIAL HYPERPLASIA) Sexually Transmitted Disease: No Hysterectomy, Menopausal Genitourinary: Renal Failure Gastrointestinal: Abdominal Hernia, Gastroesophageal Reflux Musculoskeletal: Arthritis, Chronic Back Pain Endocrine: Hypothyroidsim HEENT: Tinnitis Psychosocial: Anxiety, Depression History of Blood Disorders: Yes (ANEMIA) Adverse Reaction to Blood Muller: No Family History Reviewed Nursing Family Hx Alzheimer's disease Arthritis Asthma Completed stroke Dementia Diabetes mellitus Glaucoma Hypertension Kidney disease Myocardial infarction Psychosocial problem Respiratory disorder Severe allergy Thyroid disease Visual disorder No Family History of: AIDS Abdominal aortic aneurysm Jae's disease Alcoholism Aphasia Cancer of mouth Cardiovascular disease Cataracts Colon cancer Congenital disease Congenital heart disease Coronary thrombosis Cystic fibrosis Deafness or hearing loss Drug abuse Dysphasia Fibrocystic disease of breast Gastroenteritis Headache disorder Hypercholesterolemia Infertility Neoplasm Not obtainable due to adoption Osteoporosis Parkinson's disease Prostate cancer Seizure disorder Tuberculosis No Pertinent Family Hx Review of Systems ROS-Unable to Obtain: altered mentation Constitutional: see HPI Physical Exam Physical Exam Vital Signs Vital Signs - First Documented 06/06/19 06/06/19 12:05 12:36 Temp 36.4 Pulse 99 Resp 18 B/P (MAP) 135/99 (111) Pulse Ox 99 O2 Delivery Nasal Cannula O2 Flow Rate 6.00 FiO2 98 Capillary Refill : Less Than 3 Seconds Height, Weight, BMI Height: 5'4.00" Weight: 246lbs. 2.0oz. 111.340633lj; 39.51 BMI Method:Stated General Appearance: Moderate Distress, Obese HEENT: PERRL/EOMI, Other (wearing BiPAP) Neck: Normal Inspection, Supple Respiratory: Lungs Clear, Normal Breath Sounds, Respiratory Distress, Other (tachypnea) Cardiovascular: Regular Rate, Rhythm, No Edema, No Murmur Gastrointestinal: Normal Bowel Sounds, Non Tender, Soft Extremity: Non Tender, Swelling Neurologic/Psychiatric: Other (lethargic, disoriented, uncooperative) Skin: Warm/Dry, Erythema (bilateral lower extremities) Results Results/Procedures Labs Laboratory Tests 06/06/19 12:05 06/07/19 02:39 Patient resulted labs reviewed. Imaging: Reviewed Imaging Report Assessment/Plan Admission Diagnosis acute hypercapnic respiratory failure Admission Status: Inpatient Order (span 2 midnights) Reason for Inpatient Admission: acute hypercapnic respiratory failure requiring BiPAP Assessment and Plan Acute hypercapnic respiratory failure Community acquired pneumonia COPD with acute exacerbation Chronic diastolic heart failure ABG showed acute hypercapnia with pH 7.1 and CO2 80 on arrival chest x-ray concerning for pneumonia Leukocytosis on admission Procalcitonin elevated Started on Rocephin and azithromycin for community-acquired pneumonia Started on BiPAP for acute hypercapnic respiratory failure Transfer to ICU due to increased level of nursing cares Sitter at bedside if available Consult pulmonology KAIN on CKD creatinine 2.2 on admission Started on Lasix Essential hypertension Hold home meds for now Resume at blood pressures elevated Morbid obesity Clinically significant, no acute management needs DVT prophylaxis: Lovenox Diagnosis/Problems Diagnosis/Problems (1) Acute hypercapnic respiratory failure Status: Acute (2) Community acquired pneumonia Status: Acute (3) Acute kidney injury superimposed on chronic kidney disease Status: Acute (4) Hypernatremia Status: Acute (5) COPD with acute exacerbation Status: Acute Clinical Quality Measures DVT/VTE Risk/Contraindication: Risk Factor Score Per Nursin RFS Level Per Nursing on Admit: 4+=Very High MARLON ARMIJO MD Jun 07, 2019 13:43 POS
--- NOTE | 2019-06-07 13:56 | Progress Note - Hospitalist ---
Subjective HPI/CC On Admission Date Seen by Provider: Jun 07, 2019 Time Seen by Provider: 08:20 Jennifer Woodall is a 68-year-old female with past medical history of hypertension, COPD, CKD, heart failure with preserved ejection fraction, morbid obesity, who presented with altered mental status. I was called to evaluate her on the floor after arrival. She was wearing her BiPAP but was fidgeting and attempting to remove it. I spoke with her and recommended that she keep it on and she was redirectable.she was unable to provide any other meaningful history. There are no family members at the bedside at that time. The workup in the emergency room revealed that she had a an acute hypercapnic respiratory failure, as well as an acute kidney injury, and pneumonia. Subjective/Events-last exam She is awake and alert this morning wearing her BiPAP. She is cooperative this morning. She has no complaints. Focused Exam Lactate Level 06/06/19 12:05: Lactic Acid Level 0.54 06/07/19 01:15: Lactic Acid Level 0.50 Objective Exam Vital Signs Vital Signs Date Time Temp Pulse Resp B/P (MAP) Pulse Ox O2 Delivery O2 Flow Rate FiO2 06/07/19 13:00 101 20 124/72 (89) 93 NIV Bilevel 35.00 06/07/19 12:00 37.5 06/07/19 08:00 30 Capillary Refill : Less Than 3 Seconds General Appearance: No Apparent Distress, Obese HEENT: PERRL/EOMI, Other (wearing BiPAP) Neck: Normal Inspection, Supple Respiratory: Lungs Clear, Normal Breath Sounds, No Respiratory Distress Cardiovascular: Regular Rate, Rhythm, No Edema, No Murmur Gastrointestinal: Normal Bowel Sounds, Non Tender, Soft Extremity: Non Tender, Inflammation, Pedal Edema Neurologic/Psychiatric: Alert, No Motor/Sensory Deficits Skin: Warm/Dry, Erythema (bilateral legs) Results/Procedures Lab Laboratory Tests 06/07/19 02:39 Patient resulted labs reviewed. Imaging: Reviewed Imaging Report Assessment/Plan Assessment and Plan Assess & Plan/Chief Complaint Acute hypercapnic respiratory failure Community acquired pneumonia COPD with acute exacerbation Chronic diastolic heart failure pulmonology consulted, appreciate recommendationson ABG reveals improved but continued acute hypercapnia Continue BiPAP Continue antibiotics for pneumonia Continue steroids for COPD exacerbation KAIN on CKD Hypernatremia creatinine 2.2 on admission, trended up to 2.3 today stop Lasix Begin LR 125 mL per hour Repeat BMP this afternoon Essential hypertension Hold home meds for now Resume at blood pressures elevated Morbid obesity Clinically significant, no acute management needs DVT prophylaxis: Lovenox Diagnosis/Problems Diagnosis/Problems (1) Acute hypercapnic respiratory failure Status: Acute (2) Community acquired pneumonia Status: Acute (3) Acute kidney injury superimposed on chronic kidney disease Status: Acute (4) Hypernatremia Status: Acute (5) COPD with acute exacerbation Status: Acute Clinical Quality Measures DVT/VTE Risk/Contraindication: Risk Factor Score Per Nursin RFS Level Per Nursing on Admit: 4+=Very High MARLON ARMIJO MD Jun 07, 2019 13:56 POS
[2019-06-07 14:34] LABS: CALCIUM 8.9 MG/DL (8.5-10.1); CREATININE SERUM 2.3 MG/DL (0.60-1.30); POTASSIUM 4.7 MMOL/L (3.6-5.0)
[2019-06-07] MEDS: inSUlin ASPART (NovoLOG) 1 UNIT/0.01 ML (CHARGE PER UNIT) SC SCH ×2 (16:00→21:56)
[2019-06-07] MEDS: methylPREDNISolone 40 MG/ML (Solu-MEDROL) VIAL IV SCH ×2 (16:15→21:56)
[2019-06-07] MEDS ORDERED: cefTRIAXone 2 GM IV (ROCEPHIN) VIAL ONE (17:34)
[2019-06-07] MEDS ORDERED: WATER (STERILE) FOR INJECTION 20 ML ONE (17:35)
[2019-06-07] MEDS: cefTRIAXone FOR IV USE 2,000 MG in WATER (STERILE) FOR INJECTION 20 ML IV SCH (18:24)
[2019-06-07 19:41] LABS: ABG BASE EXCESS 0.3 MMOL/L (-2.5-2.5); ABG OXYGEN SATURATION 94 % (94-100); ABG PCO2 67 MMHG (35-45); ABG PO2 76 MMHG (79-93); ABG TCO2 29.3 MMOL/L (21.0-31.0)
[2019-06-07 19:43] LABS: ABG PH 7.23 (7.37-7.43); ALLENS TEST YES-POS; INSPIRED O2 35%; PATIENT TEMP 37.6; VENTILATOR NO
[2019-06-07] MEDS: DOCUSATE SODIUM 100 MG (COLACE) CAP PO SCH (21:48)
[2019-06-07] MEDS: SENNOSIDES 8.6 MG (SENOKOT) TAB PO SCH (21:48)
--- NOTE | 2019-06-07 22:00 | NUR ---
Pt tachycardic, E-ICU consulted, orders received
[2019-06-07] MEDS ORDERED: meTOprolol 5 MG/5 ML (LOPRESSOR) VIAL ONE (22:31)
[2019-06-07] MEDS: meTOprolol 5 MG/5 ML (LOPRESSOR) VIAL IV SCH (22:45)
[2019-06-08] VITALS (28 sets, daily range): BP systolic 112–178; BP diastolic 48–110
[2019-06-08] MEDS: LACTATED RINGERS 1,000 ML IV SCH ×3 (00:01→15:41)
[2019-06-08] MEDS: RT-ALBUTEROL/IPRATROPIUM 3 ML (DUONEB) VIAL INH SCH ×7 (00:34→21:02)
[2019-06-08 03:25] LABS: BASOPHILS % (AUTO) 0 % (0-10); EOSINOPHILS % (AUTO) 0 % (0-10); HEMATOCRIT 28 % (35-52); HEMOGLOBIN 7.6 G/DL (11.5-16.0); LYMPHOCYTES # (AUTO) 0.2 X 10^3 (1.0-4.0); LYMPHOCYTES % (AUTO) 5 % (12-44); MEAN CORPUSCULAR HEMOGLOBIN 28 PG (25-34); MEAN CORPUSCULAR HGB CONC 27 G/DL (32-36); MEAN CORPUSCULAR VOLUME 103 FL (80-99); MEAN PLATELET VOLUME 10.3 FL (7.4-10.4); MONOCYTES # (AUTO) 0.1 X 10^3 (0.0-1.0); MONOCYTES % (AUTO) 3 % (0-12); NEUTROPHILS # (AUTO) 3.6 X 10^3 (1.8-7.8); NEUTROPHILS % (AUTO) 93 % (42-75); PLATELET COUNT 90 10^3/uL (130-400); RED CELL DISTRIBUTION WIDTH 15.4 % (10.0-14.5); WHITE BLOOD COUNT 3.8 10^3/uL (4.3-11.0)
[2019-06-08 03:26] LABS: ABG BASE EXCESS 2.2 MMOL/L (-2.5-2.5); ABG OXYGEN SATURATION 99 % (94-100); ABG PO2 103 MMHG (79-93); ABG TCO2 31.5 MMOL/L (21.0-31.0)
[2019-06-08 03:29] LABS: ABG PCO2 71 MMHG (35-45); ABG PH 7.23 (7.37-7.43)
[2019-06-08 03:30] LABS: ALLENS TEST YES-POS; INSPIRED O2 40%; PATIENT TEMP 36.3; VENTILATOR NO
[2019-06-08 03:46] LABS: CALCIUM 8.8 MG/DL (8.5-10.1); CREATININE SERUM 2.28 MG/DL (0.60-1.30); MAGNESIUM 2.2 MG/DL (1.6-2.4); PHOSPHORUS 4.7 MG/DL (2.3-4.7); POTASSIUM 4.9 MMOL/L (3.6-5.0)
[2019-06-08] MEDS: meTOprolol 5 MG/5 ML (LOPRESSOR) VIAL IV SCH ×4 (03:47→22:04)
[2019-06-08] MEDS: ENOXAPARIN 40 MG/0.4 ML (LOVENOX) SYR SC SCH (03:47)
[2019-06-08] MEDS: methylPREDNISolone 40 MG/ML (Solu-MEDROL) VIAL IV SCH ×4 (03:47→22:04)
--- NOTE | 2019-06-08 03:58 | Pulmonary Progress Note ---
RAPHAEL SARABIA MED STUDENT 06/08/19 0358: Subjective Date Seen by a Provider: Jun 08, 2019 Time Seen by a Provider: 03:45 Subjective/Events-last exam The patient is resting comfortably and answers all questions appropriately. She feels that her breathing has improved. She states that she is coughing occasio lisandro but it is non-productive. She denies chest pain and has no other concerns at this time. Sepsis Event Evaluation Height, Weight, BMI Height: 5'4.00" Weight: 246lbs. 2.0oz. 111.397761mp; 39.51 BMI Method:Stated Focused Exam Lactate Level 06/06/19 12:05: Lactic Acid Level 0.54 06/07/19 01:15: Lactic Acid Level 0.50 Exam Exam Vital Signs Date Time Temp Pulse Resp B/P (MAP) Pulse Ox O2 Delivery O2 Flow Rate FiO2 06/08/19 03:30 36.3 06/08/19 01:34 74 24 96 40.00 06/08/19 01:00 80 06/08/19 00:00 67 27 141/74 (96) 96 NIV Bilevel 40.00 06/08/19 00:00 NIV Bilevel 40 06/07/19 23:00 70 18 133/77 (95) 95 NIV Bilevel 40.00 06/07/19 22:00 86 22 134/88 (103) 97 NIV Bilevel 40.00 06/07/19 21:00 89 22 159/86 (110) 96 NIV Bilevel 40.00 06/07/19 20:19 NIV Bilevel 40.00 06/07/19 20:00 NIV Bilevel 40 06/07/19 20:00 37.6 06/07/19 20:00 93 24 152/70 (97) 95 NIV Bilevel 35.00 06/07/19 19:00 100 06/07/19 19:00 99 22 93 NIV Bilevel 35.00 06/07/19 18:52 99 22 94 35.00 06/07/19 18:00 107 21 99 NIV Bilevel 35.00 06/07/19 17:00 90 32 127/61 (83) 95 NIV Bilevel 35.00 06/07/19 16:00 37.8 06/07/19 16:00 93 25 142/96 (111) 93 NIV Bilevel 35.00 06/07/19 16:00 NIV Bilevel 30 06/07/19 15:49 36.5 06/07/19 15:00 93 17 136/60 (85) 95 NIV Bilevel 35.00 06/07/19 14:06 92 23 94 35.00 06/07/19 14:00 93 18 131/63 (85) 94 NIV Bilevel 35.00 06/07/19 13:00 101 20 124/72 (89) 93 NIV Bilevel 35.00 06/07/19 12:25 101 06/07/19 12:00 37.5 06/07/19 12:00 106 21 135/66 (89) 94 NIV Bilevel 35.00 06/07/19 12:00 NIV Bilevel 30 06/07/19 11:00 101 20 131/58 (82) 94 NIV Bilevel 35.00 06/07/19 10:04 98 26 94 35.00 06/07/19 10:00 96 25 130/59 (82) 94 NIV Bilevel 35.00 06/07/19 09:00 100 25 142/64 (90) 95 NIV Bilevel 35.00 06/07/19 08:00 NIV Bilevel 30 06/07/19 08:00 101 24 142/62 (88) 91 NIV Bilevel 35.00 06/07/19 07:00 95 26 127/57 (80) 93 NIV Bilevel 35.00 06/07/19 07:00 98 06/07/19 06:38 96 23 94 35.00 06/07/19 06:00 93 19 132/63 (86) 96 NIV Bilevel 35.00 06/07/19 05:00 91 19 120/73 (89) 95 NIV Bilevel 35.00 06/07/19 04:48 NIV Bilevel 35.00 06/07/19 04:10 NIV Bilevel 25.00 06/07/19 04:00 NIV Bilevel 30 I & O 06/08/19 07:00 Intake Total 1410 ml Output Total 1225 ml Balance 185 ml Height & Weight Height: 5'4.00" Weight: 246lbs. 2.0oz. 111.462506da; 39.51 BMI Method:Stated General Appearance: No Apparent Distress, Obese HEENT: PERRL/EOMI, Other (wearing BiPAP) Neck: Normal Inspection, Supple Respiratory: No Respiratory Distress, Rales, Wheezing Cardiovascular: Regular Rate, Rhythm, No Edema, No Murmur Capillary Refill: Less Than 3 Seconds Gastrointestinal: non tender, soft Extremity: Non Tender, Inflammation, Pedal Edema Neurologic/Psychiatric: Alert, No Motor/Sensory Deficits Skin: Normal Color, Warm/Dry, Erythema (bilateral legs) Results Lab Laboratory Tests 06/06/19 12:05 06/07/19 02:39 06/07/19 14:12 06/08/19 02:59 Assessment/Plan Assessment/Plan Acute on chronic respiratory failure -Currently requiring BiPAP -decrease FiO2 -Currently Diastolic CHF - Last Echo in 2018 showed normal EF -Repeat echo -Currently on Lasix 40mg BID -Monitor Cr close Metabolic encephalopathy PNA -Rocephin/Azithromycin -Alvares cultures pending -No fever Acute on chronic renal insuff - Monitor Cr close -Base line Cr around 1.4 -Currently on Lasix Anemia -Monitor ESTRELLITA PITT DO 06/08/19 0512: Subjective Time Seen by a Provider: 05:07 Exam Exam General Appearance: No Apparent Distress, Obese HEENT: PERRL/EOMI Neck: Normal Inspection, Supple Respiratory: No Respiratory Distress, Rales, Wheezing Cardiovascular: Regular Rate, Rhythm, No Edema, No Murmur Gastrointestinal: non tender, soft Extremity: Non Tender, Inflammation, Pedal Edema Neurologic/Psychiatric: Alert, No Motor/Sensory Deficits Skin: Normal Color, Warm/Dry, Erythema (bilateral legs) Assessment/Plan Assessment/Plan Acute on chronic respiratory failure -Currently requiring BiPAP -Continue to decrease FiO2 -Recheck ABG at 11 Acute on chronic renal insuff - Monitor Cr close -Base line Cr around 1.4 -Agree with IVF Diastolic CHF - Last Echo in 2017 showed normal EF -Repeat echo pending -Monitor Cr close macrocytic Anemia -Check B12, Thiamine -Continues to decline -Will give 1 unit of PRBC -Protonix Q12 -Occult stool pending Metabolic encephalopathy PNA -Rocephin/Azithromycin -Alvares cultures pending -No fever Anemia -Monitor RAPHAEL SARABIA MED STUDENT Jun 08, 2019 03:58 ESTRELLITA YEN DO Jun 08, 2019 05:12 POS
[2019-06-08] MEDS: KCL 20 MEQ TAB (K-DUR) PO SCH (06:00)
[2019-06-08] MEDS: inSUlin ASPART (NovoLOG) 1 UNIT/0.01 ML (CHARGE PER UNIT) SC SCH ×4 (06:00→22:04)
[2019-06-08] MEDS: POTASSIUM CL 10MEQ/50ML IVPB 50 ML IV SCH (06:00)
[2019-06-08] MEDS: CATHETER FLUSH 10 ML SYR IV SCH ×3 (06:00→22:04)
[2019-06-08] MEDS: MAGNESIUM 1 GM/100 ML IVPB 100 ML IV SCH (07:35)
--- NOTE | 2019-06-08 07:55 | Diagnostic Imaging Report ---
INDICATION: Dyspnea. Comparison made with prior examination of 06/07/2019. FINDINGS: There is cardiomegaly. There is some venous congestion. No pneumothorax. Mediastinum is unremarkable. IMPRESSION: Cardiomegaly and mild central pulmonary venous congestion. Dictated by: Dictated on workstation # [id number]
[2019-06-08] MEDS: AZITHROMYCIN 250 MG TAB (ZITHROMAX) PO SCH (09:47)
[2019-06-08] MEDS: PANTOPRAZOLE 40 MG (PROTONIX) VIAL IV SCH ×2 (09:47→22:04)
[2019-06-08] MEDS: DOCUSATE SODIUM 100 MG (COLACE) CAP PO SCH ×2 (09:48→22:04)
[2019-06-08] MEDS: SENNOSIDES 8.6 MG (SENOKOT) TAB PO SCH ×2 (09:48→22:04)
--- NOTE | 2019-06-08 10:08 | Progress Note - Hospitalist ---
Subjective HPI/CC On Admission Date Seen by Provider: Jun 08, 2019 Time Seen by Provider: 07:30 Jennifer Woodall is a 68-year-old female with past medical history of hypertension, COPD, CKD, heart failure with preserved ejection fraction, morbid obesity, who presented with altered mental status. I was called to evaluate her on the floor after arrival. She was wearing her BiPAP but was fidgeting and attempting to remove it. I spoke with her and recommended that she keep it on and she was redirectable.she was unable to provide any other meaningful history. There are no family members at the bedside at that time. The workup in the emergency room revealed that she had a an acute hypercapnic respiratory failure, as well as an acute kidney injury, and pneumonia. Subjective/Events-last exam She is wearing her BiPAP. She is hungry. She is obviously frustrated. She has no other complaints or concerns. She denies any fevers or chills. She denies any shortness of breath or chest pain. She asks about the weather outside. Focused Exam Lactate Level 06/06/19 12:05: Lactic Acid Level 0.54 06/07/19 01:15: Lactic Acid Level 0.50 Objective Exam Vital Signs Vital Signs Date Time Temp Pulse Resp B/P (MAP) Pulse Ox O2 Delivery O2 Flow Rate FiO2 06/08/19 09:00 73 31 158/75 (102) 92 NIV Bilevel 36.00 06/08/19 04:14 37.6 06/08/19 04:00 40 Capillary Refill : Less Than 3 Seconds General Appearance: No Apparent Distress, WD/WN HEENT: Other (Wearing BiPAP) Respiratory: No Respiratory Distress, Other (Coarse breath sounds, wearing BiPAP, tachypnea) Cardiovascular: Regular Rate, Rhythm, No Edema, No Murmur Gastrointestinal: Normal Bowel Sounds, Non Tender, Soft Extremity: Normal Inspection, Non Tender, No Pedal Edema Neurologic/Psychiatric: Alert, No Motor/Sensory Deficits; No Disoriented Skin: Normal Color, Warm/Dry Results/Procedures Lab Laboratory Tests 06/07/19 14:12 06/08/19 02:59 Patient resulted labs reviewed. Imaging: Reviewed Imaging Report Assessment/Plan Assessment and Plan Assess & Plan/Chief Complaint Acute hypercapnic respiratory failure Community acquired pneumonia COPD with acute exacerbation Chronic diastolic heart failure pulmonology consulted, appreciate recommendationson ABG this morning shows worsening pH and CO2 retention Continues on BiPAP May require intubation if failing BiPAP Continue antibiotics for pneumonia Continue steroids for COPD exacerbation KAIN on CKD Hypernatremia creatinine mildly improved, 2.28, baseline appears to be about 1.4 continue IV fluids Sodium improving Essential hypertension Hold home meds for now Resume at blood pressures elevated Morbid obesity Clinically significant, no acute management needs DVT prophylaxis: Lovenox Diagnosis/Problems Diagnosis/Problems (1) Acute hypercapnic respiratory failure Status: Acute (2) Community acquired pneumonia Status: Acute (3) Acute kidney injury superimposed on chronic kidney disease Status: Acute (4) Hypernatremia Status: Acute (5) COPD with acute exacerbation Status: Acute Clinical Quality Measures DVT/VTE Risk/Contraindication: Risk Factor Score Per Nursin RFS Level Per Nursing on Admit: 4+=Very High MARLON ARMIJO MD Jun 08, 2019 10:08 POS
[2019-06-08] MEDS: RT-BUDESONIDE NEBS 0.5 MG/2ML (PULMICORT) AMP INH SCH ×2 (11:43→18:29)
[2019-06-08 12:02] LABS: ABG BASE EXCESS 2.5 MMOL/L (-2.5-2.5); ABG OXYGEN SATURATION 93 % (94-100); ABG PCO2 63 MMHG (35-45); ABG PO2 64 MMHG (79-93); ABG TCO2 30.6 MMOL/L (21.0-31.0)
[2019-06-08 12:04] LABS: ABG PH 7.28 (7.37-7.43); ALLENS TEST YES-POS; INSPIRED O2 36%; PATIENT TEMP 36.9; VENTILATOR NO
--- NOTE | 2019-06-08 15:18 | NUR ---
1100 THIS RN NOTICED A NURSING COMMUNICATION TO TYPE AND SCREEN FOR 1 UNIT OF PRBC'S. THIS RN WAS UNABLE TO CLARIFY IF UNIT NEEDED TO BE GIVEN BY DR PITT WHOM PLACED THE NURSING COMMUNICATION ORDERS. DR ARMIJO ON FLOOR AND PER DR ARMIJO NO BLOOD TRANSFUSION NEEDED AT THIS TIME.
[2019-06-08] MEDS ORDERED: WATER (STERILE) FOR INJECTION 20 ML ONE (16:55)
[2019-06-08] MEDS ORDERED: cefTRIAXone 2 GM IV (ROCEPHIN) VIAL ONE (16:55)
[2019-06-08] MEDS: cefTRIAXone FOR IV USE 2,000 MG in WATER (STERILE) FOR INJECTION 20 ML IV SCH (17:05)
[2019-06-09] VITALS (32 sets, daily range): BP systolic 98–198; BP diastolic 32–103
[2019-06-09] MEDS: LACTATED RINGERS 1,000 ML IV SCH ×2 (00:06→00:56)
[2019-06-09] MEDS: RT-ALBUTEROL/IPRATROPIUM 3 ML (DUONEB) VIAL INH SCH ×6 (01:35→22:39)
[2019-06-09 03:08] LABS: ABG BASE EXCESS 2.2 MMOL/L (-2.5-2.5); ABG OXYGEN SATURATION 97 % (94-100); ABG PCO2 70 MMHG (35-45); ABG PO2 87 MMHG (79-93); ABG TCO2 31.4 MMOL/L (21.0-31.0)
[2019-06-09] MEDS: HALOPERIDOL 5 MG/ML (HALDOL) AMP IM PRN (03:12)
[2019-06-09 03:16] LABS: ABG PH 7.24 (7.37-7.43)
[2019-06-09 03:17] LABS: ALLENS TEST YES-POS; INSPIRED O2 45%; VENTILATOR NO
[2019-06-09 03:38] LABS: BASOPHILS % (AUTO) 0 % (0-10); EOSINOPHILS % (AUTO) 0 % (0-10); HEMATOCRIT 30 % (35-52); LYMPHOCYTES # (AUTO) 0.2 X 10^3 (1.0-4.0); LYMPHOCYTES % (AUTO) 5 % (12-44); MEAN CORPUSCULAR HEMOGLOBIN 28 PG (25-34); MEAN CORPUSCULAR HGB CONC 27 G/DL (32-36); MEAN CORPUSCULAR VOLUME 103 FL (80-99); MEAN PLATELET VOLUME 11.4 FL (7.4-10.4); MONOCYTES # (AUTO) 0.1 X 10^3 (0.0-1.0); MONOCYTES % (AUTO) 2 % (0-12); NEUTROPHILS # (AUTO) 4.1 X 10^3 (1.8-7.8); NEUTROPHILS % (AUTO) 93 % (42-75); PLATELET COUNT 97 10^3/uL (130-400); WHITE BLOOD COUNT 4.4 10^3/uL (4.3-11.0)
[2019-06-09 04:00] LABS: CALCIUM 8.9 MG/DL (8.5-10.1); CREATININE SERUM 2.18 MG/DL (0.60-1.30); MAGNESIUM 2.3 MG/DL (1.6-2.4); PHOSPHORUS 5.1 MG/DL (2.3-4.7); POTASSIUM 4.6 MMOL/L (3.6-5.0)
[2019-06-09] MEDS: ENOXAPARIN 40 MG/0.4 ML (LOVENOX) SYR SC SCH (05:25)
[2019-06-09] MEDS: MAGNESIUM 1 GM/100 ML IVPB 100 ML IV SCH (05:26)
[2019-06-09] MEDS: inSUlin ASPART (NovoLOG) 1 UNIT/0.01 ML (CHARGE PER UNIT) SC SCH ×4 (05:26→23:58)
[2019-06-09] MEDS: POTASSIUM CL 10MEQ/50ML IVPB 50 ML IV SCH ×2 (05:26→09:19)
[2019-06-09] MEDS: KCL 20 MEQ TAB (K-DUR) PO SCH (05:26)
[2019-06-09] MEDS: meTOprolol 5 MG/5 ML (LOPRESSOR) VIAL IV SCH ×4 (06:16→22:45)
[2019-06-09] MEDS: methylPREDNISolone 40 MG/ML (Solu-MEDROL) VIAL IV SCH ×4 (06:16→21:07)
[2019-06-09] MEDS: CATHETER FLUSH 10 ML SYR IV SCH ×3 (06:17→21:07)
[2019-06-09] MEDS: RT-BUDESONIDE NEBS 0.5 MG/2ML (PULMICORT) AMP INH SCH ×2 (06:40→18:51)
[2019-06-09] MEDS ORDERED: D5W 1000 ML IV SOLUTION 1,000 ML ONE (06:51)
[2019-06-09] MEDS: D5W 1000 ML IV SOLUTION 1,000 ML IV SCH ×3 (06:55→19:56)
--- NOTE | 2019-06-09 07:43 | Diagnostic Imaging Report ---
EXAMINATION: Chest 1 view HISTORY: Dyspnea. COMPARISON: 06/08/2019 FINDINGS: Stable cardiomegaly with central pulmonary vascular congestion. No overt pulmonary edema. A small to moderate left pleural effusion is present with bibasilar opacities. No large pneumothorax. No acute osseous abnormalities. IMPRESSION: 1. Stable cardiomegaly with central pulmonary vascular congestion. 2. Stable small to moderate left pleural effusion with left basilar opacities. Dictated by: Dictated on workstation # [id number]
--- NOTE | 2019-06-09 07:58 | Progress Note ---
Subjective Time Seen by a Provider: 07:58 Subjective/Events-last exam Patient alert today. GFR 22 today. Patient on BiPAP. Focused Exam Lactate Level 06/06/19 12:05: Lactic Acid Level 0.54 06/07/19 01:15: Lactic Acid Level 0.50 Objective Exam Vital Signs Date Time Temp Pulse Resp B/P (MAP) Pulse Ox O2 Delivery O2 Flow Rate FiO2 06/09/19 06:57 71 20 94 35.00 06/09/19 06:42 71 20 96 40.00 06/09/19 06:42 67 11 96 NIV Bilevel 35.00 06/09/19 06:00 74 17 130/54 (79) 92 NIV Bilevel 40.00 06/09/19 05:25 69 19 119/55 (76) 92 NIV Bilevel 40.00 06/09/19 05:00 66 19 119/55 (76) 94 NIV Bilevel 45.00 06/09/19 04:00 75 17 137/44 (75) 93 NIV Bilevel 45.00 06/09/19 03:07 36.0 06/09/19 03:00 77 16 151/76 (101) 98 NIV Bilevel 45.00 06/09/19 02:00 82 23 144/76 (98) NIV Bilevel 45.00 06/09/19 01:35 77 21 98 45.00 06/09/19 01:00 79 06/09/19 01:00 79 23 141/72 (95) 96 NIV Bilevel 55.00 06/09/19 00:56 37.0 06/09/19 00:00 78 16 105/93 (97) 98 NIV Bilevel 55.00 06/09/19 00:00 NIV Bilevel 55 06/08/19 23:00 80 21 112/57 (75) 97 NIV Bilevel 55.00 06/08/19 22:00 93 15 150/48 (82) 98 NIV Bilevel 55.00 06/08/19 21:02 90 20 99 85.00 06/08/19 21:00 93 145/67 (93) 99 NIV Bilevel 55.00 06/08/19 20:00 36.0 06/08/19 20:00 84 12 132/67 (88) 100 NIV Bilevel 85.00 06/08/19 20:00 NIV Bilevel 30 06/08/19 19:00 80 12/15/19 19:00 80 31 129/62 (84) 99 NIV Bilevel 85.00 06/08/19 18:50 79 99 NIV Bilevel 100.00 06/08/19 18:29 77 22 100 100.00 06/08/19 18:29 77 22 100 100.00 06/08/19 18:00 84 122/93 (103) 91 NIV Bilevel 36.00 06/08/19 17:00 78 20 138/61 (86) 92 NIV Bilevel 36.00 06/08/19 16:15 NIV Bilevel 30 06/08/19 16:00 36.4 06/08/19 16:00 79 20 137/98 (111) 92 NIV Bilevel 36.00 06/08/19 15:07 78 27 92 30.00 06/08/19 15:00 82 20 149/72 (97) 92 NIV Bilevel 36.00 06/08/19 14:00 81 21 171/74 (106) 92 NIV Bilevel 36.00 06/08/19 13:00 79 20 174/75 (108) 93 NIV Bilevel 36.00 06/08/19 12:25 NIV Bilevel 40 06/08/19 12:17 72 06/08/19 12:00 36.9 06/08/19 12:00 73 29 178/87 (117) 95 NIV Bilevel 36.00 06/08/19 11:43 71 20 94 36.00 06/08/19 11:00 71 35 171/81 (111) 90 NIV Bilevel 36.00 06/08/19 10:00 73 15 167/76 (106) 94 NIV Bilevel 36.00 06/08/19 09:00 73 31 158/75 (102) 92 NIV Bilevel 36.00 06/08/19 08:10 92 NIV Bilevel 36.00 06/08/19 08:00 71 31 174/97 (122) 93 NIV Bilevel 36.00 I & O 06/09/19 07:00 Intake Total 30 ml Output Total 1245 ml Balance -1215 ml Capillary Refill : Less Than 3 Seconds General Appearance: No Apparent Distress, WD/WN, Other (On BiPAP) HEENT: Normal ENT Inspection Neck: Full Range of Motion, Normal Inspection Respiratory: Chest Non Tender, No Accessory Muscle Use, No Respiratory Distress, Decreased Breath Sounds Cardiovascular: Regular Rate, Rhythm Gastrointestinal: non tender, soft Results Lab Laboratory Tests 06/09/19 03:10 Laboratory Tests 06/08/19 11:50: Blood Gas Puncture Site LT RADIAL, Blood Gas Patient Temperature 36.9, Arterial Blood pH 7.28*L, Arterial Blood Partial Pressure CO2 63H, Arterial Blood Partial Pressure O2 64L, Arterial Blood HCO3 29H, Arterial Blood Total CO2 30.6, Arterial Blood Oxygen Saturation 93L, Arterial Blood Base Excess 2.5, Clif Test YES-POS, Blood Gas Ventilator Setting NO, Blood Gas Inspired Oxygen 36% 06/08/19 12:08: Glucometer 148H 06/08/19 15:54: Glucometer 148H 06/08/19 18:25: Stool Occult Blood Immunoassay NEGATIVE 06/08/19 20:49: Glucometer 148H 06/09/19 03:05: Blood Gas Puncture Site RIGHT RADIAL, Blood Gas Patient Temperature 36.0, Arterial Blood pH 7.24*L, Arterial Blood Partial Pressure CO2 70H, Arterial Blood Partial Pressure O2 87, Arterial Blood HCO3 29H, Arterial Blood Total CO2 31.4H, Arterial Blood Oxygen Saturation 97, Arterial Blood Base Excess 2.2, Clif Test YES-POS, Blood Gas Ventilator Setting NO, Blood Gas Inspired Oxygen 45% 06/09/19 03:10: White Blood Count 4.4, Red Blood Count 2.86L, Hemoglobin 8.0L, Hematocrit 30L, Mean Corpuscular Volume 103H, Mean Corpuscular Hemoglobin 28, Mean Corpuscular Hemoglobin Concent 27L, Red Cell Distribution Width 15.0H, Platelet Count 97L, Mean Platelet Volume 11.4H, Neutrophils (%) (Auto) 93H, Lymphocytes (%) (Auto) 5L, Monocytes (%) (Auto) 2, Eosinophils (%) (Auto) 0, Basophils (%) (Auto) 0, Neutrophils # (Auto) 4.1, Lymphocytes # (Auto) 0.2L, Monocytes # (Auto) 0.1, Eosinophils # (Auto) 0.0, Basophils # (Auto) 0.0, Sodium Level 149H, Potassium Level 4.6, Chloride Level 111H, Carbon Dioxide Level 26, Anion Gap 12, Blood Urea Nitrogen 66H, Creatinine 2.18H, Estimat Glomerular Filtration Rate 22, BUN/Creatinine Ratio 30, Glucose Level 164H, Calcium Level 8.9, Phosphorus Level 5.1H, Magnesium Level 2.3 Microbiology 06/06/19 Blood Culture - Preliminary, Resulted No growth 06/06/19 Influenza Types A,B Antigen (QUYEN) - Final, Complete Assessment/Plan Assessment/Plan Assess & Plan/Chief Complaint Acute mental status resolved. Acute and chronic respiratory failure. Diastolic congestive heart failure. Ammonia. Acute and chronic renal failure. Anemia. Hypercapnia Clinical Quality Measures DVT/VTE Risk/Contraindication: Risk Factor Score Per Nursin RFS Level Per Nursing on Admit: 4+=Very High AURORA STACK DO Jun 09, 2019 07:58 POS
--- NOTE | 2019-06-09 08:16 | Pulmonary Progress Note ---
Subjective Time Seen by a Provider: 05:00 Subjective/Events-last exam PT is requiring BiPAP Sepsis Event Evaluation Height, Weight, BMI Height: 5'4.00" Weight: 246lbs. 2.0oz. 111.626626bz; 39.51 BMI Method:Stated Focused Exam Lactate Level 06/06/19 12:05: Lactic Acid Level 0.54 06/07/19 01:15: Lactic Acid Level 0.50 Exam Exam Vital Signs Date Time Temp Pulse Resp B/P (MAP) Pulse Ox O2 Delivery O2 Flow Rate FiO2 06/09/19 06:57 71 20 94 35.00 06/09/19 06:42 71 20 96 40.00 06/09/19 06:42 67 11 96 NIV Bilevel 35.00 06/09/19 06:00 74 17 130/54 (79) 92 NIV Bilevel 40.00 06/09/19 05:25 69 19 119/55 (76) 92 NIV Bilevel 40.00 06/09/19 05:00 66 19 119/55 (76) 94 NIV Bilevel 45.00 06/09/19 04:00 NIV Bilevel 55 06/09/19 04:00 75 17 137/44 (75) 93 NIV Bilevel 45.00 06/09/19 03:07 36.0 06/09/19 03:00 77 16 151/76 (101) 98 NIV Bilevel 45.00 06/09/19 02:00 82 23 144/76 (98) NIV Bilevel 45.00 06/09/19 01:35 77 21 98 45.00 06/09/19 01:00 79 06/09/19 01:00 79 23 141/72 (95) 96 NIV Bilevel 55.00 06/09/19 00:56 37.0 06/09/19 00:00 78 16 105/93 (97) 98 NIV Bilevel 55.00 06/09/19 00:00 NIV Bilevel 55 06/08/19 23:00 80 21 112/57 (75) 97 NIV Bilevel 55.00 06/08/19 22:00 93 15 150/48 (82) 98 NIV Bilevel 55.00 06/08/19 21:02 90 20 99 85.00 06/08/19 21:00 93 145/67 (93) 99 NIV Bilevel 55.00 06/08/19 20:00 36.0 06/08/19 20:00 84 12 132/67 (88) 100 NIV Bilevel 85.00 06/08/19 20:00 NIV Bilevel 30 06/08/19 19:00 80 06/08/19 19:00 80 31 129/62 (84) 99 NIV Bilevel 85.00 06/08/19 18:50 79 99 NIV Bilevel 100.00 06/08/19 18:29 77 22 100 100.00 06/08/19 18:29 77 22 100 100.00 06/08/19 18:00 84 122/93 (103) 91 NIV Bilevel 36.00 06/08/19 17:00 78 20 138/61 (86) 92 NIV Bilevel 36.00 06/08/19 16:15 NIV Bilevel 30 06/08/19 16:00 36.4 06/08/19 16:00 79 20 137/98 (111) 92 NIV Bilevel 36.00 06/08/19 15:07 78 27 92 30.00 06/08/19 15:00 82 20 149/72 (97) 92 NIV Bilevel 36.00 06/08/19 14:00 81 21 171/74 (106) 92 NIV Bilevel 36.00 06/08/19 13:00 79 20 174/75 (108) 93 NIV Bilevel 36.00 06/08/19 12:25 NIV Bilevel 40 06/08/19 12:17 72 06/08/19 12:00 36.9 06/08/19 12:00 73 29 178/87 (117) 95 NIV Bilevel 36.00 06/08/19 11:43 71 20 94 36.00 06/08/19 11:00 71 35 171/81 (111) 90 NIV Bilevel 36.00 06/08/19 10:00 73 15 167/76 (106) 94 NIV Bilevel 36.00 06/08/19 09:00 73 31 158/75 (102) 92 NIV Bilevel 36.00 I & O 06/09/19 07:00 Intake Total 1780 ml Output Total 1245 ml Balance 535 ml Height & Weight Height: 5'4.00" Weight: 246lbs. 2.0oz. 111.632039dd; 39.51 BMI Method:Stated General Appearance: No Apparent Distress, WD/WN, Other (On BiPAP) HEENT: Normal ENT Inspection Neck: Full Range of Motion, Normal Inspection Respiratory: Chest Non Tender, No Accessory Muscle Use, No Respiratory Distress, Decreased Breath Sounds Cardiovascular: Regular Rate, Rhythm Capillary Refill: Less Than 3 Seconds Gastrointestinal: non tender, soft Extremity: Normal Inspection, Non Tender, No Pedal Edema Neurologic/Psychiatric: Alert, No Motor/Sensory Deficits; No Disoriented Skin: Normal Color, Warm/Dry Results Lab Laboratory Tests 06/07/19 14:12 06/08/19 02:59 06/09/19 03:10 Assessment/Plan Assessment/Plan Acute on chronic respiratory failure -Currently requiring BiPAP -Continue to decrease FiO2 Acute on chronic renal insuff - Monitor -Base line Cr around 1.4 -Agree with IVF -- change to D5W Diastolic CHF - Last Echo in 2017 showed normal EF - echo -Monitor Cr close macrocytic Anemia -Protonix Q12 -Occult stool pending Metabolic encephalopathy PNA -Rocephin/Azithromycin -Alvares cultures pending -No fever Anemia -Monitor ESTRELLITA PITT DO Jun 09, 2019 08:16 POS
[2019-06-09] MEDS: SENNOSIDES 8.6 MG (SENOKOT) TAB PO SCH ×2 (09:00→21:07)
[2019-06-09] MEDS: DOCUSATE SODIUM 100 MG (COLACE) CAP PO SCH ×2 (09:00→21:06)
[2019-06-09] MEDS: CALCIUM ACETATE 667 MG CAP (PHOSLO) PO SCH ×3 (09:41→16:51)
[2019-06-09] MEDS: AZITHROMYCIN 250 MG TAB (ZITHROMAX) PO SCH (09:41)
[2019-06-09] MEDS: PANTOPRAZOLE 40 MG (PROTONIX) VIAL IV SCH ×2 (09:41→21:06)
--- NOTE | 2019-06-09 10:53 | NUR ---
CM DISCHARGE PLANNING: Prior to this hospitalization patient is from [facility]. Spoke with [facility] staff this a.m. et they report that they had received Jennifer from a [facility] in the area et she has had a history of a hospitalization that required her to be on a ventilator et then transfer to LTC. [facility] staff also report that Jennifer refuses often to wear her bipap at [facility] with them as well. We visited about the need for her to wear her bipap but that she has resident rights et they do not have the capability to force her to use this. She has been a resident with them for the past 3 years. Plan to return to [facility] once patient is medically ready for discharge to that level of care.
--- NOTE | 2019-06-09 11:15 | NUR ---
Pastoral care visit, no family present, pt asleep.
[2019-06-09] MEDS: HALOPERIDOL 0.5 MG (HALDOL) TAB PO PRN ×3 (11:30→22:45)
[2019-06-09 12:27] LABS: ABG BASE EXCESS 3.1 MMOL/L (-2.5-2.5); ABG OXYGEN SATURATION 95 % (94-100); ABG PCO2 59 MMHG (35-45); ABG PO2 69 MMHG (79-93)
[2019-06-09 12:29] LABS: ABG PH 7.31 (7.37-7.43)
[2019-06-09 12:30] LABS: ALLENS TEST YES-POS; INSPIRED O2 30; PATIENT TEMP 36.1; VENTILATOR NO
[2019-06-09] MEDS ORDERED: cefTRIAXone 2 GM IV (ROCEPHIN) VIAL ONE (16:41)
[2019-06-09] MEDS ORDERED: WATER (STERILE) FOR INJECTION 20 ML ONE (16:44)
[2019-06-09] MEDS: cefTRIAXone FOR IV USE 2,000 MG in WATER (STERILE) FOR INJECTION 20 ML IV SCH (16:52)
[2019-06-10] VITALS (31 sets, daily range): BP systolic 112–176; BP diastolic 47–101
[2019-06-10] MEDS: RT-ALBUTEROL/IPRATROPIUM 3 ML (DUONEB) VIAL INH SCH ×6 (01:45→22:19)
[2019-06-10] MEDS: D5W 1000 ML IV SOLUTION 1,000 ML IV SCH ×2 (02:34→20:21)
[2019-06-10 03:56] LABS: ABG BASE EXCESS 2.9 MMOL/L (-2.5-2.5); ABG OXYGEN SATURATION 96 % (94-100); ABG PCO2 69 MMHG (35-45); ABG PO2 71 MMHG (79-93)
[2019-06-10 04:03] LABS: ABG PH 7.25 (7.37-7.43); ALLENS TEST YES-POS; INSPIRED O2 40%
[2019-06-10 04:04] LABS: VENTILATOR NO
[2019-06-10 04:11] LABS: BASOPHILS % (AUTO) 0 % (0-10); EOSINOPHILS % (AUTO) 0 % (0-10); HEMATOCRIT 29 % (35-52); LYMPHOCYTES # (AUTO) 0.2 X 10^3 (1.0-4.0); LYMPHOCYTES % (AUTO) 4 % (12-44); MEAN CORPUSCULAR HEMOGLOBIN 27 PG (25-34); MEAN CORPUSCULAR HGB CONC 27 G/DL (32-36); MEAN CORPUSCULAR VOLUME 99 FL (80-99); MEAN PLATELET VOLUME 10.8 FL (7.4-10.4); MONOCYTES # (AUTO) 0.2 X 10^3 (0.0-1.0); MONOCYTES % (AUTO) 3 % (0-12); NEUTROPHILS # (AUTO) 4.5 X 10^3 (1.8-7.8); NEUTROPHILS % (AUTO) 93 % (42-75); PLATELET COUNT 105 10^3/uL (130-400); RED CELL DISTRIBUTION WIDTH 14.9 % (10.0-14.5); WHITE BLOOD COUNT 4.9 10^3/uL (4.3-11.0)
[2019-06-10] MEDS: methylPREDNISolone 40 MG/ML (Solu-MEDROL) VIAL IV SCH ×4 (04:19→21:51)
[2019-06-10] MEDS: CATHETER FLUSH 10 ML SYR IV SCH ×3 (04:19→20:22)
[2019-06-10] MEDS: meTOprolol 5 MG/5 ML (LOPRESSOR) VIAL IV SCH ×4 (04:19→21:51)
[2019-06-10 04:32] LABS: CALCIUM 8.5 MG/DL (8.5-10.1); CREATININE SERUM 1.97 MG/DL (0.60-1.30); MAGNESIUM 2.2 MG/DL (1.6-2.4); POTASSIUM 4.3 MMOL/L (3.6-5.0)
--- NOTE | 2019-06-10 04:58 | Pulmonary Progress Note ---
Subjective Time Seen by a Provider: 05:01 Subjective/Events-last exam Pt still requiring BIPAP. Sepsis Event Evaluation Height, Weight, BMI Height: 5'4.00" Weight: 246lbs. 2.0oz. 111.799565yb; 39.51 BMI Method:Stated Exam Exam Vital Signs Date Time Temp Pulse Resp B/P (MAP) Pulse Ox O2 Delivery O2 Flow Rate FiO2 06/10/19 03:43 36.0 NIV Bilevel 40.00 06/10/19 03:25 92 NIV Bilevel 30 06/10/19 03:00 77 16 151/76 (101) 98 NIV Bilevel 40.00 06/10/19 02:00 82 23 144/76 (98) 88 NIV Bilevel 40.00 06/10/19 01:46 65 20 95 40.00 06/10/19 01:00 66 15 117/55 (75) 90 NIV Bilevel 40.00 06/10/19 01:00 66 06/10/19 00:00 67 21 163/64 (97) 89 NIV Bilevel 40.00 06/09/19 23:50 36.9 NIV Bilevel 40.00 06/09/19 23:25 93 NIV Bilevel 30 06/09/19 23:00 65 18 106/64 (78) 89 NIV Bilevel 40.00 06/09/19 22:40 65 20 91 40.00 06/09/19 22:00 66 19 161/84 (109) 91 NIV Bilevel 40.00 06/09/19 21:00 68 17 148/72 (97) 92 NIV Bilevel 40.00 06/09/19 20:15 93 NIV Bilevel 30 06/09/19 20:00 73 31 155/76 (102) 91 NIV Bilevel 40.00 06/09/19 20:00 36.4 06/09/19 19:55 NIV Bilevel 40.00 06/09/19 19:00 63 06/09/19 19:00 63 151/81 (104) 91 NIV Bilevel 40.00 06/09/19 18:52 66 20 90 40.00 06/09/19 18:00 70 19 140/72 (94) 90 NIV Bilevel 40.00 06/09/19 17:00 80 47 157/73 (101) 88 NIV Bilevel 40.00 06/09/19 16:00 71 15 98/36 (56) 88 NIV Bilevel 40.00 06/09/19 16:00 35.8 06/09/19 16:00 NIV Bilevel 40 06/09/19 15:55 71 22 89 40.00 06/09/19 15:00 73 22 144/58 (86) 91 NIV Bilevel 40.00 06/09/19 14:00 71 13 142/66 (91) 90 NIV Bilevel 40.00 06/09/19 13:00 70 13 155/68 (97) 91 NIV Bilevel 40.00 06/09/19 13:00 70 06/09/19 12:26 NIV Bilevel 40.00 06/09/19 12:00 69 15 168/85 (112) 87 NIV Bilevel 30.00 06/09/19 12:00 NIV Bilevel 40 06/09/19 11:10 64 20 92 30.00 06/09/19 11:00 36.1 68 15 151/76 (101) 91 NIV Bilevel 30.00 06/09/19 10:00 74 13 198/103 (134) 93 NIV Bilevel 30.00 06/09/19 09:00 64 13 162/72 (102) 90 NIV Bilevel 30.00 06/09/19 08:47 NIV Bilevel 30.00 06/09/19 08:00 NIV Bilevel 55 06/09/19 08:00 NIV Bilevel 25.00 06/09/19 08:00 73 16 164/32 (76) 90 NIV Bilevel 25.00 06/09/19 07:00 68 06/09/19 07:00 68 22 145/82 (103) 92 NIV Bilevel 35.00 06/09/19 06:57 71 20 94 35.00 06/09/19 06:42 71 20 96 40.00 06/09/19 06:42 67 11 96 NIV Bilevel 35.00 06/09/19 06:00 74 17 130/54 (79) 92 NIV Bilevel 40.00 06/09/19 05:25 69 19 119/55 (76) 92 NIV Bilevel 40.00 06/09/19 05:00 66 19 119/55 (76) 94 NIV Bilevel 45.00 I & O 06/10/19 07:00 Intake Total 2030 ml Output Total 1050 ml Balance 980 ml Height & Weight Height: 5'4.00" Weight: 246lbs. 2.0oz. 111.583287to; 39.51 BMI Method:Stated General Appearance: WD/WN, Moderate Distress, Other (On BiPAP) HEENT: Normal ENT Inspection Neck: Full Range of Motion, Normal Inspection Respiratory: Chest Non Tender, Decreased Breath Sounds Cardiovascular: Regular Rate, Rhythm Capillary Refill: Less Than 3 Seconds Gastrointestinal: non tender, soft Extremity: Normal Inspection, Non Tender, No Pedal Edema Neurologic/Psychiatric: Alert, No Motor/Sensory Deficits; No Disoriented Skin: Normal Color, Warm/Dry Results Lab Laboratory Tests 06/09/19 03:10 06/10/19 03:30 Assessment/Plan Assessment/Plan Acute on chronic respiratory failure -Currently requiring BiPAP -- Pt has been on BiPAP cont for 3 days now without any sign of improvement. -Continue to decrease FiO2 -ABG appears worse today. I discussed with patient regarding intubation. Pt wants us to discuss intubation with her family. She does have a hx of being on ventilator and requiring tracheostomy. I explained to pt her pulmonary status is not improving. I recommend either intubation or DNR with possible hospice care. I am going to consult hospice for education. Acute on chronic renal insuff - Monitor -Base line Cr around 1.4 -Agree with IVF -- change to D5W Diastolic CHF - Last Echo in 2017 showed normal EF - echo -Monitor Cr close macrocytic Anemia -Protonix Q12 -Occult stool pending Metabolic encephalopathy PNA -Rocephin/Azithromycin -Alvares cultures pending -No fever Anemia -Monitor ESTRELLITA PITT DO Jun 10, 2019 04:58 POS
[2019-06-10] MEDS ORDERED: FUROSEMIDE 40 MG/4 ML INJ (LASIX) IVP ONE (05:15)
[2019-06-10] MEDS ORDERED: ENOXAPARIN 40 MG/0.4 ML (LOVENOX) SYR SC SCH (05:15)
[2019-06-10] MEDS: KCL 20 MEQ TAB (K-DUR) PO SCH (05:19)
[2019-06-10] MEDS: MAGNESIUM 1 GM/100 ML IVPB 100 ML IV SCH (05:19)
[2019-06-10] MEDS: POTASSIUM CL 10MEQ/50ML IVPB 50 ML IV SCH ×4 (05:19→10:15)
[2019-06-10] MEDS: inSUlin ASPART (NovoLOG) 1 UNIT/0.01 ML (CHARGE PER UNIT) SC SCH ×4 (05:20→23:32)
[2019-06-10] MEDS: CALCIUM ACETATE 667 MG CAP (PHOSLO) PO SCH ×3 (05:20→18:24)
--- NOTE | 2019-06-10 07:47 | Progress Note ---
Subjective Time Seen by a Provider: 07:44 Subjective/Events-last exam Patient on BiPAP. ABG looks a little worse. Patient will go on BiPAP. Objective Exam Vital Signs Date Time Temp Pulse Resp B/P (MAP) Pulse Ox O2 Delivery O2 Flow Rate FiO2 06/10/19 06:00 64 16 137/101 (113) 94 NIV Bilevel 40.00 06/10/19 05:00 62 20 125/62 (83) 91 NIV Bilevel 40.00 06/10/19 04:00 65 19 113/53 (73) 90 NIV Bilevel 40.00 06/10/19 03:43 36.0 NIV Bilevel 40.00 06/10/19 03:25 92 NIV Bilevel 30 06/10/19 03:00 67 19 140/74 (96) 89 NIV Bilevel 40.00 06/10/19 02:00 63 19 130/70 (90) 90 NIV Bilevel 40.00 06/10/19 01:46 65 20 95 40.00 06/10/19 01:00 66 15 117/55 (75) 90 NIV Bilevel 40.00 06/10/19 01:00 66 06/10/19 00:00 67 21 163/64 (97) 89 NIV Bilevel 40.00 06/09/19 23:50 36.9 NIV Bilevel 40.00 06/09/19 23:25 93 NIV Bilevel 30 06/09/19 23:00 65 18 106/64 (78) 89 NIV Bilevel 40.00 06/09/19 22:40 65 20 91 40.00 06/09/19 22:00 66 19 161/84 (109) 91 NIV Bilevel 40.00 06/09/19 21:00 68 17 148/72 (97) 92 NIV Bilevel 40.00 06/09/19 20:15 93 NIV Bilevel 30 06/09/19 20:00 73 31 155/76 (102) 91 NIV Bilevel 40.00 06/09/19 20:00 36.4 06/09/19 19:55 NIV Bilevel 40.00 06/09/19 19:00 63 06/09/19 19:00 63 151/81 (104) 91 NIV Bilevel 40.00 06/09/19 18:52 66 20 90 40.00 06/09/19 18:00 70 19 140/72 (94) 90 NIV Bilevel 40.00 06/09/19 17:00 80 47 157/73 (101) 88 NIV Bilevel 40.00 06/09/19 16:00 71 15 98/36 (56) 88 NIV Bilevel 40.00 06/09/19 16:00 35.8 06/09/19 16:00 NIV Bilevel 40 06/09/19 15:55 71 22 89 40.00 06/09/19 15:00 73 22 144/58 (86) 91 NIV Bilevel 40.00 06/09/19 14:00 71 13 142/66 (91) 90 NIV Bilevel 40.00 06/09/19 13:00 70 13 155/68 (97) 91 NIV Bilevel 40.00 06/09/19 13:00 70 06/09/19 12:26 NIV Bilevel 40.00 06/09/19 12:00 69 15 168/85 (112) 87 NIV Bilevel 30.00 06/09/19 12:00 NIV Bilevel 40 06/09/19 11:10 64 20 92 30.00 06/09/19 11:00 36.1 68 15 151/76 (101) 91 NIV Bilevel 30.00 06/09/19 10:00 74 13 198/103 (134) 93 NIV Bilevel 30.00 06/09/19 09:00 64 13 162/72 (102) 90 NIV Bilevel 30.00 06/09/19 08:47 NIV Bilevel 30.00 06/09/19 08:00 NIV Bilevel 55 06/09/19 08:00 NIV Bilevel 25.00 06/09/19 08:00 73 16 164/32 (76) 90 NIV Bilevel 25.00 I & O 06/10/19 07:00 Intake Total 2030 ml Output Total 1330 ml Balance 700 ml Capillary Refill : Less Than 3 Seconds General Appearance: No Apparent Distress, WD/WN HEENT: Normal ENT Inspection Neck: Normal Inspection Respiratory: No Accessory Muscle Use, No Respiratory Distress, Decreased Breath Sounds Cardiovascular: Regular Rate, Rhythm, No Murmur Gastrointestinal: non tender, soft Results Lab Laboratory Tests 06/10/19 03:30 Laboratory Tests 06/09/19 11:24: Glucometer 218H 06/09/19 12:25: Blood Gas Puncture Site RT RAD, Blood Gas Patient Temperature 36.1, Arterial Blood pH 7.31*L, Arterial Blood Partial Pressure CO2 59H, Arterial Blood Partial Pressure O2 69L, Arterial Blood HCO3 29H, Arterial Blood Total CO2 31.0, Arterial Blood Oxygen Saturation 95, Arterial Blood Base Excess 3.1H, Clif Test YES-POS, Blood Gas Ventilator Setting NO, Blood Gas Inspired Oxygen 30 06/09/19 17:03: Glucometer 204H 06/09/19 23:52: Glucometer 208H 06/10/19 03:30: White Blood Count 4.9, Red Blood Count 2.96L, Hemoglobin 8.0L, Hematocrit 29L, Mean Corpuscular Volume 99, Mean Corpuscular Hemoglobin 27, Mean Corpuscular Hemoglobin Concent 27L, Red Cell Distribution Width 14.9H, Platelet Count 105L, Mean Platelet Volume 10.8H, Neutrophils (%) (Auto) 93H, Lymphocytes (%) (Auto) 4L, Monocytes (%) (Auto) 3, Eosinophils (%) (Auto) 0, Basophils (%) (Auto) 0, Neutrophils # (Auto) 4.5, Lymphocytes # (Auto) 0.2L, Monocytes # (Auto) 0.2, Eosinophils # (Auto) 0.0, Basophils # (Auto) 0.0, Sodium Level 141, Potassium Level 4.3, Chloride Level 107, Carbon Dioxide Level 23, Anion Gap 11, Blood Urea Nitrogen 64H, Creatinine 1.97H, Estimat Glomerular Filtration Rate 25, BUN/Creatinine Ratio 32, Glucose Level 231H, Calcium Level 8.5, Phosphorus Level 4.0, Magnesium Level 2.2 06/10/19 03:43: Blood Gas Puncture Site RIGHT RADIAL, Blood Gas Patient Temperature 36.0, Arterial Blood pH 7.25*L, Arterial Blood Partial Pressure CO2 69H, Arterial Blood Partial Pressure O2 71L, Arterial Blood HCO3 30H, Arterial Blood Total CO2 32.0H, Arterial Blood Oxygen Saturation 96, Arterial Blood Base Excess 2.9H, Clif Test YES-POS, Blood Gas Ventilator Setting NO, Blood Gas Inspired Oxygen 40% Microbiology 06/06/19 Blood Culture - Preliminary, Resulted No growth 06/06/19 Influenza Types A,B Antigen (QUYEN) - Final, Complete Assessment/Plan Assessment/Plan Assess & Plan/Chief Complaint Acute mental status resolved. Acute and chronic respiratory failure. Diastolic congestive heart failure. Ammonia. Acute and chronic renal failure. Anemia. Hypercapnia. . 06/10/19. Acute mental status resolved. Acute and chronic respiratory failure. Diastolic congestive heart failure. Pneumonia. Anemia. Hypercapnia. Patient positive about putting on ventilator Clinical Quality Measures DVT/VTE Risk/Contraindication: Risk Factor Score Per Nursin RFS Level Per Nursing on Admit: 4+=Very High AURORA STACK DO Jun 10, 2019 07:47 POS
[2019-06-10] MEDS: RT-BUDESONIDE NEBS 0.5 MG/2ML (PULMICORT) AMP INH SCH ×2 (08:04→19:34)
--- NOTE | 2019-06-10 09:07 | Diagnostic Imaging Report ---
INDICATION: Dyspnea. FINDINGS: The cardiomegaly, bibasilar atelectasis/infiltrate, and left pleural effusion seen on the prior exam of 06/09/2019 are again evident. The density in each lung base may be somewhat greater than on the prior study. The upper lungs remain clear. The central pulmonary vascularity is still somewhat prominent. The mediastinum is not widened. The osseous structures are intact. IMPRESSION: The overall appearance of the chest has not changed significantly since the prior exam; however, there may be slightly greater involvement of both lung bases by atelectasis/infiltrate. A followup exam would be recommended for continued evaluation. Dictated by: Dictated on workstation # [id number]
--- NOTE | 2019-06-10 09:19 | NUR ---
PALLIATIVE CARE CONSULT received for this patient for hospice education. Patient is currently on the BiPAP with worsening ABGs and CXR. I am requested to talk to her about her POC options in reference to INTUBATION or DNR. Prior to my arrival patient spoke with Dr. Carrera and has since made the decision for INTUBATION. Spoke to her and her DPOA for HC about CODE status...she still wants to be FULL CODE. Updated Dr. Arrieta on the above.
[2019-06-10 10:45] LABS: ABG BASE EXCESS 2.8 MMOL/L (-2.5-2.5); ABG OXYGEN SATURATION 96 % (94-100); ABG PCO2 58 MMHG (35-45); ABG PO2 67 MMHG (79-93)
[2019-06-10 10:49] LABS: ALLENS TEST YES-POS; INSPIRED O2 35%; VENTILATOR NO
[2019-06-10] MEDS: DOCUSATE SODIUM 100 MG (COLACE) CAP PO SCH ×2 (12:03→20:21)
[2019-06-10] MEDS: AZITHROMYCIN 250 MG TAB (ZITHROMAX) PO SCH (12:03)
[2019-06-10] MEDS: SENNOSIDES 8.6 MG (SENOKOT) TAB PO SCH ×2 (12:03→20:21)
[2019-06-10] MEDS: HALOPERIDOL 0.5 MG (HALDOL) TAB PO PRN ×2 (12:03→20:22)
[2019-06-10] MEDS: PANTOPRAZOLE 40 MG (PROTONIX) VIAL IV SCH ×2 (12:04→20:21)
--- NOTE | 2019-06-10 15:06 | NUR ---
[employer] follow up: The pt is a resident of [facility]. She demonstrated interest and concern for her caregivers and fellow residents, and expressed desire to return soon. She expressed this has been a fearful and frustrating season as her as her health declines.
[2019-06-10] MEDS: ENOXAPARIN 40 MG/0.4 ML (LOVENOX) SYR SC SCH (17:00)
[2019-06-10] MEDS: cefTRIAXone FOR IV USE 2,000 MG in WATER (STERILE) FOR INJECTION 20 ML IV SCH (18:24)
[2019-06-10] MEDS ORDERED: cefTRIAXone 2 GM IV (ROCEPHIN) VIAL ONE (18:25)
[2019-06-10] MEDS ORDERED: WATER (STERILE) FOR INJECTION 20 ML ONE (18:26)
[2019-06-11] VITALS (25 sets, daily range): BP systolic 122–168; BP diastolic 59–95
[2019-06-11] MEDS: methylPREDNISolone 40 MG/ML (Solu-MEDROL) VIAL IV SCH ×4 (04:15→22:43)
[2019-06-11] MEDS: meTOprolol 5 MG/5 ML (LOPRESSOR) VIAL IV SCH ×4 (04:45→22:43)
[2019-06-11] MEDS: ENOXAPARIN 40 MG/0.4 ML (LOVENOX) SYR SC SCH ×2 (05:00→06:30)
[2019-06-11 05:29] LABS: CREATININE SERUM 1.86 MG/DL (0.60-1.30); POTASSIUM 4.8 MMOL/L (3.6-5.0)
[2019-06-11 05:30] LABS: CALCIUM 8.5 MG/DL (8.5-10.1); MAGNESIUM 2.2 MG/DL (1.6-2.4); PHOSPHORUS 2.9 MG/DL (2.3-4.7)
[2019-06-11 05:31] LABS: WHITE BLOOD COUNT 6.8 10^3/uL (4.3-11.0)
[2019-06-11 05:32] LABS: BASOPHILS % (AUTO) 0 % (0-10); EOSINOPHILS % (AUTO) 0 % (0-10); HEMATOCRIT 29 % (35-52); HEMOGLOBIN 8.4 G/DL (11.5-16.0); LYMPHOCYTES # (AUTO) 0.3 X 10^3 (1.0-4.0); LYMPHOCYTES % (AUTO) 4 % (12-44); MEAN CORPUSCULAR HEMOGLOBIN 28 PG (25-34); MEAN CORPUSCULAR HGB CONC 29 G/DL (32-36); MEAN CORPUSCULAR VOLUME 97 FL (80-99); MEAN PLATELET VOLUME 11.7 FL (7.4-10.4); MONOCYTES # (AUTO) 0.1 X 10^3 (0.0-1.0); MONOCYTES % (AUTO) 2 % (0-12); NEUTROPHILS # (AUTO) 6.4 X 10^3 (1.8-7.8); NEUTROPHILS % (AUTO) 94 % (42-75); PLATELET COUNT 101 10^3/uL (130-400); RED CELL DISTRIBUTION WIDTH 14.7 % (10.0-14.5)
[2019-06-11 05:59] LABS: ABG BASE EXCESS 3.8 MMOL/L (-2.5-2.5); ABG OXYGEN SATURATION 95 % (94-100); ABG PCO2 50 MMHG (35-45); ABG PH 7.37 (7.37-7.43); ABG PO2 70 MMHG (79-93); ABG TCO2 30.4 MMOL/L (21.0-31.0)
[2019-06-11] MEDS: inSUlin ASPART (NovoLOG) 1 UNIT/0.01 ML (CHARGE PER UNIT) SC SCH ×4 (06:00→20:32)
[2019-06-11 06:01] LABS: ALLENS TEST YES-POS; INSPIRED O2 30%; PATIENT TEMP 36.4; VENTILATOR NO
[2019-06-11] MEDS: MAGNESIUM 1 GM/100 ML IVPB 100 ML IV SCH (06:14)
[2019-06-11] MEDS: POTASSIUM CL 10MEQ/50ML IVPB 50 ML IV SCH (06:14)
[2019-06-11] MEDS: CATHETER FLUSH 10 ML SYR IV SCH ×3 (06:14→22:43)
[2019-06-11] MEDS: KCL 20 MEQ TAB (K-DUR) PO SCH (06:15)
--- NOTE | 2019-06-11 06:15 | Pulmonary Progress Note ---
Subjective Time Seen by a Provider: 06:15 Subjective/Events-last exam PT improved after lasix yesterday Sepsis Event Evaluation Height, Weight, BMI Height: 5'4.00" Weight: 246lbs. 2.0oz. [id number]; 39.51 BMI Method:Stated Exam Exam Vital Signs Date Time Temp Pulse Resp B/P (MAP) Pulse Ox O2 Delivery O2 Flow Rate FiO2 06/11/19 06:00 72 17 133/71 (91) 97 Nasal Cannula 2.00 06/11/19 05:30 69 19 94 Nasal Cannula 2.00 06/11/19 05:00 69 19 129/67 (87) 94 NIV Bilevel 22.00 06/11/19 04:55 71 18 96 NIV Bilevel 22.00 06/11/19 04:00 93 NIV Bilevel 25 06/11/19 04:00 70 20 127/59 (81) 89 NIV Bilevel 25.00 06/11/19 03:25 73 15 94 NIV Bilevel 25.00 06/11/19 03:00 72 19 146/72 (96) 91 NIV Bilevel 30.00 06/11/19 02:00 68 134/64 (87) 89 NIV Bilevel 30.00 06/11/19 01:00 71 06/11/19 01:00 71 20 133/67 (89) 90 NIV Bilevel 30.00 06/11/19 00:00 67 19 139/64 (89) 92 NIV Bilevel 30.00 06/10/19 23:45 90 NIV Bilevel 30 06/10/19 23:40 36.2 NIV Bilevel 30.00 06/10/19 23:00 67 19 127/62 (83) 90 NIV Bilevel 30.00 06/10/19 22:19 67 20 89 30.00 06/10/19 22:00 68 20 122/63 (82) 90 NIV Bilevel 30.00 06/10/19 21:00 72 27 115/56 (75) 91 NIV Bilevel 30.00 06/10/19 20:00 35.8 06/10/19 20:00 92 NIV Bilevel 30 06/10/19 20:00 65 20 137/67 (90) 91 NIV Bilevel 30.00 06/10/19 19:45 NIV Bilevel 30.00 06/10/19 19:34 70 19 92 30.00 06/10/19 19:34 70 19 92 30.00 06/10/19 19:00 67 30 142/71 (94) 89 NIV Bilevel 35.00 06/10/19 19:00 67 06/10/19 18:00 68 16 137/59 (85) 90 NIV Bilevel 35.00 06/10/19 17:00 67 26 148/70 (96) 92 NIV Bilevel 35.00 06/10/19 16:00 72 18 133/70 (91) 93 NIV Bilevel 35.00 06/10/19 16:00 36.2 06/10/19 15:00 69 19 137/72 (93) 90 NIV Bilevel 35.00 06/10/19 14:23 66 20 90 30.00 06/10/19 14:00 72 20 142/60 (87) 91 NIV Bilevel 35.00 06/10/19 13:00 66 8 176/47 (90) 93 NIV Bilevel 35.00 06/10/19 12:45 69 06/10/19 12:00 73 20 143/71 (95) 95 NIV Bilevel 35.00 06/10/19 12:00 36.1 06/10/19 11:18 NIV Bilevel 30.00 06/10/19 11:00 66 19 132/63 (86) 93 NIV Bilevel 35.00 06/10/19 10:42 NIV Bilevel 35.00 06/10/19 10:20 66 20 90 35.00 06/10/19 10:00 66 20 122/60 (80) 90 NIV Bilevel 40.00 06/10/19 09:00 70 21 112/57 (75) 93 NIV Bilevel 40.00 06/10/19 08:09 63 22 95 40.00 06/10/19 08:04 62 22 94 40.00 06/10/19 08:00 56 16 113/57 (75) 92 NIV Bilevel 40.00 06/10/19 07:00 64 19 112/55 (74) 90 NIV Bilevel 40.00 06/10/19 06:44 63 I & O 06/11/19 07:00 Intake Total 1290 ml Output Total 1400 ml Balance -110 ml Height & Weight Height: 5'4.00" Weight: 246lbs. 2.0oz. [id number]; 39.51 BMI Method:Stated General Appearance: No Apparent Distress, WD/WN, Other (On BiPAP) HEENT: Normal ENT Inspection Neck: Full Range of Motion, Normal Inspection Respiratory: Chest Non Tender, No Accessory Muscle Use, No Respiratory Distress, Decreased Breath Sounds Cardiovascular: Regular Rate, Rhythm Capillary Refill: Less Than 3 Seconds Gastrointestinal: non tender, soft Extremity: Normal Inspection, Non Tender, No Pedal Edema Neurologic/Psychiatric: Alert, No Motor/Sensory Deficits; No Disoriented Skin: Normal Color, Warm/Dry Results Lab Laboratory Tests 06/10/19 03:30 06/11/19 02:59 Assessment/Plan Assessment/Plan Acute on chronic respiratory failure -Currently requiring BiPAP -- -Continue to decrease FiO2 -ABG appears better today. -Will trial off BiPAP and continue to montior -Pt improved after lasix yesterday. WIll d/c IVF and start lasix 40mg daily Acute on chronic renal insuff - Monitor -Base line Cr around 1.4 -Agree with IVF -- change to D5W Diastolic CHF grade II - -Monitor Cr close macrocytic Anemia -Protonix Q12 -Occult stool pending Metabolic encephalopathy PNA -Rocephin/Azithromycin -Alvares cultures pending -No fever Anemia -Monitor ESTRELLITA PITT DO Jun 11, 2019 06:15
[2019-06-11] MEDS: RT-ALBUTEROL/IPRATROPIUM 3 ML (DUONEB) VIAL INH SCH ×5 (07:37→23:14)
[2019-06-11] MEDS: RT-BUDESONIDE NEBS 0.5 MG/2ML (PULMICORT) AMP INH SCH ×2 (07:37→18:44)
--- NOTE | 2019-06-11 08:30 | Progress Note ---
Subjective Time Seen by a Provider: 08:29 Subjective/Events-last exam Patient doing better today. Patient on Vapotherm. Patient at this time does not to go on ventilator Objective Exam Vital Signs Date Time Temp Pulse Resp B/P (MAP) Pulse Ox O2 Delivery O2 Flow Rate FiO2 06/11/19 06:55 92 Vapotherm 25.00 28 06/11/19 06:55 92 Vapotherm 25.00 28 06/11/19 06:00 72 17 133/71 (91) 97 Nasal Cannula 2.00 06/11/19 05:30 69 19 94 Nasal Cannula 2.00 06/11/19 05:00 69 19 129/67 (87) 94 NIV Bilevel 22.00 06/11/19 04:55 71 18 96 NIV Bilevel 22.00 06/11/19 04:00 93 NIV Bilevel 25 06/11/19 04:00 70 20 127/59 (81) 89 NIV Bilevel 25.00 06/11/19 03:25 73 15 94 NIV Bilevel 25.00 06/11/19 03:00 72 19 146/72 (96) 91 NIV Bilevel 30.00 06/11/19 02:00 68 134/64 (87) 89 NIV Bilevel 30.00 06/11/19 01:00 71 06/11/19 01:00 71 20 133/67 (89) 90 NIV Bilevel 30.00 06/11/19 00:00 67 19 139/64 (89) 92 NIV Bilevel 30.00 06/10/19 23:45 90 NIV Bilevel 30 06/10/19 23:40 36.2 NIV Bilevel 30.00 06/10/19 23:00 67 19 127/62 (83) 90 NIV Bilevel 30.00 06/10/19 22:19 67 20 89 30.00 06/10/19 22:00 68 20 122/63 (82) 90 NIV Bilevel 30.00 06/10/19 21:00 72 27 115/56 (75) 91 NIV Bilevel 30.00 06/10/19 20:00 35.8 06/10/19 20:00 92 NIV Bilevel 30 06/10/19 20:00 65 20 137/67 (90) 91 NIV Bilevel 30.00 06/10/19 19:45 NIV Bilevel 30.00 06/10/19 19:34 70 19 92 30.00 06/10/19 19:34 70 19 92 30.00 06/10/19 19:00 67 30 142/71 (94) 89 NIV Bilevel 35.00 06/10/19 19:00 67 06/10/19 18:00 68 16 137/59 (85) 90 NIV Bilevel 35.00 06/10/19 17:00 67 26 148/70 (96) 92 NIV Bilevel 35.00 06/10/19 16:00 72 18 133/70 (91) 93 NIV Bilevel 35.00 06/10/19 16:00 36.2 06/10/19 15:00 69 19 137/72 (93) 90 NIV Bilevel 35.00 06/10/19 14:23 66 20 90 30.00 06/10/19 14:00 72 20 142/60 (87) 91 NIV Bilevel 35.00 06/10/19 13:00 66 8 176/47 (90) 93 NIV Bilevel 35.00 06/10/19 12:45 69 06/10/19 12:00 73 20 143/71 (95) 95 NIV Bilevel 35.00 06/10/19 12:00 36.1 06/10/19 11:18 NIV Bilevel 30.00 06/10/19 11:00 66 19 132/63 (86) 93 NIV Bilevel 35.00 06/10/19 10:42 NIV Bilevel 35.00 06/10/19 10:20 66 20 90 35.00 06/10/19 10:00 66 20 122/60 (80) 90 NIV Bilevel 40.00 06/10/19 09:00 70 21 112/57 (75) 93 NIV Bilevel 40.00 I & O 06/11/19 07:00 Intake Total 1740 ml Output Total 2000 ml Balance -260 ml Capillary Refill : Less Than 3 Seconds General Appearance: No Apparent Distress, WD/WN HEENT: Normal ENT Inspection Neck: Full Range of Motion, Normal Inspection Respiratory: No Accessory Muscle Use, No Respiratory Distress, Decreased Breath Sounds Cardiovascular: Regular Rate, Rhythm Gastrointestinal: non tender, soft Results Lab Laboratory Tests 06/11/19 02:59 Laboratory Tests 06/10/19 10:40: Blood Gas Puncture Site L RADIAL, Blood Gas Patient Temperature 35.0, Arterial Blood pH 7.30*L, Arterial Blood Partial Pressure CO2 58H, Arterial Blood Partial Pressure O2 67L, Arterial Blood HCO3 29H, Arterial Blood Total CO2 31.0, Arterial Blood Oxygen Saturation 96, Arterial Blood Base Excess 2.8H, Clif Test YES-POS, Blood Gas Ventilator Setting NO, Blood Gas Inspired Oxygen 35% 06/10/19 11:58: Glucometer 182H 06/10/19 17:37: Glucometer 168H 06/10/19 23:32: Glucometer 195H 06/11/19 02:59: White Blood Count 6.8, Red Blood Count 3.04L, Hemoglobin 8.4L, Hematocrit 29L, Mean Corpuscular Volume 97, Mean Corpuscular Hemoglobin 28, Mean Corpuscular Hemoglobin Concent 29L, Red Cell Distribution Width 14.7H, Platelet Count 101L, Mean Platelet Volume 11.7H, Neutrophils (%) (Auto) 94H, Lymphocytes (%) (Auto) 4L, Monocytes (%) (Auto) 2, Eosinophils (%) (Auto) 0, Basophils (%) (Auto) 0, Neutrophils # (Auto) 6.4, Lymphocytes # (Auto) 0.3L, Monocytes # (Auto) 0.1, Eosinophils # (Auto) 0.0, Basophils # (Auto) 0.0, Sodium Level 141, Potassium Level 4.8, Chloride Level 106, Carbon Dioxide Level 24, Anion Gap 11, Blood Urea Nitrogen 61H, Creatinine 1.86H, Estimat Glomerular Filtration Rate 27, BUN/Creatinine Ratio 33, Glucose Level 186H, Calcium Level 8.5, Phosphorus Level 2.9, Magnesium Level 2.2 06/11/19 03:25: Blood Gas Puncture Site LEFT RADIAL, Blood Gas Patient Temperature 36.4, Arterial Blood pH 7.37, Arterial Blood Partial Pressure CO2 50H, Arterial Blood Partial Pressure O2 70L, Arterial Blood HCO3 29H, Arterial Blood Total CO2 30.4, Arterial Blood Oxygen Saturation 95, Arterial Blood Base Excess 3.8H, Clif Test YES-POS, Blood Gas Ventilator Setting NO, Blood Gas Inspired Oxygen 30% Microbiology 06/06/19 Blood Culture - Preliminary, Resulted No growth 06/06/19 Influenza Types A,B Antigen (QUYEN) - Final, Complete Assessment/Plan Assessment/Plan Assess & Plan/Chief Complaint Acute mental status resolved. Acute and chronic respiratory failure. Diastolic congestive heart failure. Ammonia. Acute and chronic renal failure. Anemia. Hypercapnia. . 06/10/19. Acute mental status resolved. Acute and chronic respiratory failure. Diastolic congestive heart failure. Pneumonia. Anemia. Hypercapnia. Patient positive about putting on ventilator. . 06/11/19. Acute mental status change resolved. Acute and chronic respiratory failure pattern. Diastolic congestive heart failure. Pneumonia. Anemia. Hypercapnia Clinical Quality Measures DVT/VTE Risk/Contraindication: Risk Factor Score Per Nursin RFS Level Per Nursing on Admit: 4+=Very High AURORA STACK DO Jun 11, 2019 08:30
--- NOTE | 2019-06-11 08:43 | Diagnostic Imaging Report ---
INDICATION: Dyspnea. TIME OF EXAM: 3:56 AM Correlation is made with prior chest from one day earlier. FINDINGS: Heart is enlarged. There are central congestive changes noted. There may be some minimal fluid in the left base. No pneumothorax is seen. IMPRESSION: Stable chest with cardiomegaly and central congestive changes. Dictated by: Dictated on workstation # [id number]
[2019-06-11] MEDS ORDERED: FUROSEMIDE 40 MG/4 ML INJ (LASIX) IVP SCH (09:00)
[2019-06-11] MEDS: PANTOPRAZOLE 40 MG (PROTONIX) VIAL IV SCH ×2 (09:15→20:21)
[2019-06-11] MEDS: DOCUSATE SODIUM 100 MG (COLACE) CAP PO SCH ×2 (09:28→20:21)
[2019-06-11] MEDS: SENNOSIDES 8.6 MG (SENOKOT) TAB PO SCH ×2 (09:28→20:21)
--- NOTE | 2019-06-11 09:36 | NUR ---
PALLIATIVE CARE RN in to see patient. She was not intubated as expected yesterday and is feeling better today and on NC. She is pleasant and happy to not have been INTUBATED. Will continue to monitor for needs and will return to [facility] at discharge.
[2019-06-11] MEDS ORDERED: cefTRIAXone FOR IV USE 2,000 MG in WATER (STERILE) FOR INJECTION 20 ML IV SCH (16:30)
[2019-06-11] MEDS: cefTRIAXone FOR IV USE 2,000 MG in WATER (STERILE) FOR INJECTION 20 ML IV SCH (16:57)
--- NOTE | 2019-06-11 19:03 | NUR ---
1840 PT CONCERNED ABOUT BILLFOLD, AND CELL PHONE, THIS RN CALLED VIA [facility] YONI SPOKE TO TECH AND PER TECH PT BILLFOLD AND CELL PHONE IN PT'S ROOM. PT NOTIFIED.
[2019-06-11] MEDS: HALOPERIDOL 0.5 MG (HALDOL) TAB PO PRN (20:21)
[2019-06-12] VITALS (20 sets, daily range): BP systolic 87–161; BP diastolic 61–85
[2019-06-12] MEDS: RT-ALBUTEROL/IPRATROPIUM 3 ML (DUONEB) VIAL INH SCH ×6 (03:06→21:59)
[2019-06-12] MEDS ORDERED: aCETylcysteine 20% (MUCOMYST) 30ML SOLN VIAL ONE (03:08)
[2019-06-12 03:53] LABS: ABG BASE EXCESS 4.4 MMOL/L (-2.5-2.5); ABG OXYGEN SATURATION 97 % (94-100); ABG PCO2 56 MMHG (35-45); ABG PO2 82 MMHG (79-93); ABG TCO2 31.7 MMOL/L (21.0-31.0)
[2019-06-12 03:57] LABS: ABG PH 7.34 (7.37-7.43); ALLENS TEST YES-POS; INSPIRED O2 30%; PATIENT TEMP 36.3; VENTILATOR NO
[2019-06-12 04:27] LABS: BASOPHILS % (AUTO) 0 % (0-10); EOSINOPHILS % (AUTO) 0 % (0-10); HEMATOCRIT 31 % (35-52); HEMOGLOBIN 8.9 G/DL (11.5-16.0); LYMPHOCYTES # (AUTO) 0.3 X 10^3 (1.0-4.0); LYMPHOCYTES % (AUTO) 4 % (12-44); MEAN CORPUSCULAR HGB CONC 29 G/DL (32-36); MEAN CORPUSCULAR VOLUME 96 FL (80-99); MEAN PLATELET VOLUME 11.1 FL (7.4-10.4); MONOCYTES # (AUTO) 0.2 X 10^3 (0.0-1.0); MONOCYTES % (AUTO) 2 % (0-12); NEUTROPHILS # (AUTO) 6.6 X 10^3 (1.8-7.8); NEUTROPHILS % (AUTO) 94 % (42-75); PLATELET COUNT 99 10^3/uL (130-400); RED CELL DISTRIBUTION WIDTH 14.9 % (10.0-14.5)
[2019-06-12 04:35] LABS: MEAN CORPUSCULAR HEMOGLOBIN 27 PG (25-34)
[2019-06-12 04:46] LABS: CALCIUM 8.5 MG/DL (8.5-10.1); CREATININE SERUM 1.91 MG/DL (0.60-1.30); MAGNESIUM 2.2 MG/DL (1.6-2.4); PHOSPHORUS 3.6 MG/DL (2.3-4.7); POTASSIUM 4.9 MMOL/L (3.6-5.0)
[2019-06-12] MEDS: POTASSIUM CL 10MEQ/50ML IVPB 50 ML IV SCH (04:55)
[2019-06-12] MEDS: MAGNESIUM 1 GM/100 ML IVPB 100 ML IV SCH (04:55)
[2019-06-12] MEDS: KCL 20 MEQ TAB (K-DUR) PO SCH (04:55)
[2019-06-12] MEDS: meTOprolol 5 MG/5 ML (LOPRESSOR) VIAL IV SCH ×4 (05:00→23:44)
[2019-06-12] MEDS: methylPREDNISolone 40 MG/ML (Solu-MEDROL) VIAL IV SCH ×4 (05:00→23:43)
[2019-06-12] MEDS: CATHETER FLUSH 10 ML SYR IV SCH ×3 (05:01→23:43)
[2019-06-12] MEDS: ENOXAPARIN 40 MG/0.4 ML (LOVENOX) SYR SC SCH (05:01)
[2019-06-12] MEDS: inSUlin ASPART (NovoLOG) 1 UNIT/0.01 ML (CHARGE PER UNIT) SC SCH ×4 (05:01→21:05)
--- NOTE | 2019-06-12 06:01 | Pulmonary Progress Note ---
Subjective Time Seen by a Provider: 06:00 Subjective/Events-last exam Pt used bipap last night Sepsis Event Evaluation Height, Weight, BMI Height: 5'4.00" Weight: 246lbs. 2.0oz. 111.267569do; 39.51 BMI Method:Stated Exam Exam Vital Signs Date Time Temp Pulse Resp B/P (MAP) Pulse Ox O2 Delivery O2 Flow Rate FiO2 06/12/19 05:00 65 24 130/61 (84) 92 NIV Bilevel 30.00 06/12/19 04:00 61 17 137/68 (91) 94 NIV Bilevel 30.00 06/12/19 03:35 36.2 NIV Bilevel 30.00 06/12/19 03:35 94 NIV Bilevel 30 06/12/19 03:06 56 20 92 30.00 06/12/19 03:00 57 16 138/66 (90) 93 NIV Bilevel 30.00 06/12/19 02:00 64 18 132/85 (101) 93 NIV Bilevel 30.00 06/12/19 01:00 80 06/12/19 01:00 71 16 137/71 (93) 94 NIV Bilevel 30.00 06/12/19 00:25 36.5 NIV Bilevel 30.00 06/12/19 00:00 67 14 128/64 (85) 98 NIV Bilevel 40.00 06/12/19 00:00 93 NIV Bilevel 40 06/11/19 23:14 69 20 97 40.00 06/11/19 23:00 68 18 122/86 (98) 97 NIV Bilevel 40.00 06/11/19 22:49 NIV Bilevel 40.00 06/11/19 22:00 82 20 155/67 (96) 95 Vapotherm 20.00 35.00 06/11/19 21:00 70 18 152/76 (101) 95 Vapotherm 20.00 35.00 06/11/19 20:00 93 Vapotherm 20.00 35 06/11/19 20:00 36.8 70 18 165/82 (109) 95 Vapotherm 20.00 35.00 06/11/19 19:00 71 23 149/73 (98) 96 NIV Bilevel 40.00 06/11/19 19:00 69 06/11/19 18:52 90 Vapotherm 20.00 35 06/11/19 18:44 89 Vapotherm 25.00 28 06/11/19 18:21 70 20 165/86 (112) 90 NIV Bilevel 40.00 06/11/19 17:00 75 22 156/90 (112) 90 NIV Bilevel 40.00 06/11/19 16:15 92 Vapotherm 25.00 28 06/11/19 16:00 70 18 160/74 (102) 94 NIV Bilevel 40.00 06/11/19 15:21 36.8 06/11/19 15:20 36.8 06/11/19 15:00 71 17 168/95 (119) 90 NIV Bilevel 40.00 06/11/19 14:04 89 Vapotherm 25.00 28 06/11/19 14:00 76 17 163/79 (107) 89 NIV Bilevel 40.00 06/11/19 13:00 71 17 165/85 (111) 90 NIV Bilevel 40.00 06/11/19 12:45 75 06/11/19 12:12 92 Vapotherm 25.00 28 06/11/19 12:00 36.3 06/11/19 12:00 74 17 161/77 (105) 95 NIV Bilevel 40.00 06/11/19 11:00 70 19 152/80 (104) 91 NIV Bilevel 40.00 06/11/19 11:00 NIV Bilevel 40.00 06/11/19 10:00 73 18 150/72 (98) 90 Nasal Cannula 2.00 06/11/19 09:47 90 Vapotherm 25.00 28 06/11/19 09:00 73 11 137/70 (92) 90 Nasal Cannula 2.00 06/11/19 08:45 92 Vapotherm 25.00 28 06/11/19 08:00 36.8 06/11/19 08:00 70 16 150/85 (106) 87 Nasal Cannula 2.00 06/11/19 07:00 69 8 141/72 (95) 92 Nasal Cannula 2.00 06/11/19 06:55 92 Vapotherm 25.00 28 06/11/19 06:55 92 Vapotherm 25.00 28 06/11/19 06:49 69 06/11/19 06:00 72 17 133/71 (91) 97 Nasal Cannula 2.00 I & O 06/12/19 07:00 Intake Total 970 ml Output Total 2075 ml Balance -1105 ml Height & Weight Height: 5'4.00" Weight: 246lbs. 2.0oz. 111.451728on; 39.51 BMI Method:Stated General Appearance: No Apparent Distress, WD/WN HEENT: Normal ENT Inspection Neck: Full Range of Motion, Normal Inspection Respiratory: No Accessory Muscle Use, No Respiratory Distress, Decreased Breath Sounds Cardiovascular: Regular Rate, Rhythm Capillary Refill: Less Than 3 Seconds Gastrointestinal: non tender, soft Extremity: Normal Inspection, Non Tender, No Pedal Edema Neurologic/Psychiatric: Alert, No Motor/Sensory Deficits; No Disoriented Skin: Normal Color, Warm/Dry Results Lab Laboratory Tests 06/11/19 02:59 06/12/19 03:40 Assessment/Plan Assessment/Plan Acute on chronic respiratory failure -Currently requiring BiPAP -- -Continue to decrease FiO2 -Will trial off BiPAP and continue to montior -Hold lasix today secondary to renal function Acute on chronic renal insuff - Monitor -Base line Cr around 1.4 -Agree with IVF -- change to D5W Diastolic CHF grade II - -Monitor Cr close macrocytic Anemia -Protonix Q12 -Occult stool pending Metabolic encephalopathy PNA -Rocephin/Azithromycin -Alvares cultures pending -No fever Anemia -Monitor ESTRELLITA PITT DO Jun 12, 2019 06:01
[2019-06-12] MEDS: RT-BUDESONIDE NEBS 0.5 MG/2ML (PULMICORT) AMP INH SCH ×2 (06:46→18:21)
--- NOTE | 2019-06-12 07:38 | Progress Note ---
Subjective Time Seen by a Provider: 07:36 Subjective/Events-last exam She resting comfortably today. Patient needing. Patient not having any trouble breathing. Patient on BiPAP last night. Objective Exam Vital Signs Date Time Temp Pulse Resp B/P (MAP) Pulse Ox O2 Delivery O2 Flow Rate FiO2 06/12/19 06:48 63 21 90 25.00 06/12/19 06:04 NIV Bilevel 25.00 06/12/19 06:00 73 18 126/78 (94) 91 NIV Bilevel 21.00 06/12/19 05:55 NIV Bilevel 21.00 06/12/19 05:00 65 24 130/61 (84) 92 NIV Bilevel 30.00 06/12/19 04:00 61 17 137/68 (91) 94 NIV Bilevel 30.00 06/12/19 03:35 36.2 NIV Bilevel 30.00 06/12/19 03:35 94 NIV Bilevel 30 06/12/19 03:06 56 20 92 30.00 06/12/19 03:00 57 16 138/66 (90) 93 NIV Bilevel 30.00 06/12/19 02:00 64 18 132/85 (101) 93 NIV Bilevel 30.00 06/12/19 01:00 80 06/12/19 01:00 71 16 137/71 (93) 94 NIV Bilevel 30.00 06/12/19 00:25 36.5 NIV Bilevel 30.00 06/12/19 00:00 67 14 128/64 (85) 98 NIV Bilevel 40.00 06/12/19 00:00 93 NIV Bilevel 40 06/11/19 23:14 69 20 97 40.00 06/11/19 23:00 68 18 122/86 (98) 97 NIV Bilevel 40.00 06/11/19 22:49 NIV Bilevel 40.00 06/11/19 22:00 82 20 155/67 (96) 95 Vapotherm 20.00 35.00 06/11/19 21:00 70 18 152/76 (101) 95 Vapotherm 20.00 35.00 06/11/19 20:00 93 Vapotherm 20.00 35 06/11/19 20:00 36.8 70 18 165/82 (109) 95 Vapotherm 20.00 35.00 06/11/19 19:00 71 23 149/73 (98) 96 NIV Bilevel 40.00 06/11/19 19:00 69 06/11/19 18:52 90 Vapotherm 20.00 35 06/11/19 18:44 89 Vapotherm 25.00 28 06/11/19 18:21 70 20 165/86 (112) 90 NIV Bilevel 40.00 06/11/19 17:00 75 22 156/90 (112) 90 NIV Bilevel 40.00 06/11/19 16:15 92 Vapotherm 25.00 28 06/11/19 16:00 70 18 160/74 (102) 94 NIV Bilevel 40.00 06/11/19 15:21 36.8 06/11/19 15:20 36.8 06/11/19 15:00 71 17 168/95 (119) 90 NIV Bilevel 40.00 06/11/19 14:04 89 Vapotherm 25.00 28 06/11/19 14:00 76 17 163/79 (107) 89 NIV Bilevel 40.00 06/11/19 13:00 71 17 165/85 (111) 90 NIV Bilevel 40.00 06/11/19 12:45 75 06/11/19 12:12 92 Vapotherm 25.00 28 06/11/19 12:00 36.3 06/11/19 12:00 74 17 161/77 (105) 95 NIV Bilevel 40.00 06/11/19 11:00 70 19 152/80 (104) 91 NIV Bilevel 40.00 06/11/19 11:00 NIV Bilevel 40.00 06/11/19 10:00 73 18 150/72 (98) 90 Nasal Cannula 2.00 06/11/19 09:47 90 Vapotherm 25.00 28 06/11/19 09:00 73 11 137/70 (92) 90 Nasal Cannula 2.00 06/11/19 08:45 92 Vapotherm 25.00 28 06/11/19 08:00 36.8 06/11/19 08:00 70 16 150/85 (106) 87 Nasal Cannula 2.00 I & O 06/12/19 07:00 Intake Total 970 ml Output Total 2075 ml Balance -1105 ml Capillary Refill : Less Than 3 Seconds General Appearance: No Apparent Distress Neck: Full Range of Motion, Normal Inspection Respiratory: No Accessory Muscle Use, No Respiratory Distress, Decreased Breath Sounds Cardiovascular: Regular Rate, Rhythm, No Murmur Gastrointestinal: non tender, soft Results Lab Laboratory Tests 06/12/19 03:40 Laboratory Tests 06/11/19 11:22: Glucometer 180H 06/11/19 15:05: Glucometer 166H 06/11/19 20:31: Glucometer 163H 06/12/19 03:40: White Blood Count 7.0, Red Blood Count 3.24L, Hemoglobin 8.9L, Hematocrit 31L, Mean Corpuscular Volume 96, Mean Corpuscular Hemoglobin 27, Mean Corpuscular Hemoglobin Concent 29L, Red Cell Distribution Width 14.9H, Platelet Count 99L, Mean Platelet Volume 11.1H, Neutrophils (%) (Auto) 94H, Lymphocytes (%) (Auto) 4L, Monocytes (%) (Auto) 2, Eosinophils (%) (Auto) 0, Basophils (%) (Auto) 0, Neutrophils # (Auto) 6.6, Lymphocytes # (Auto) 0.3L, Monocytes # (Auto) 0.2, Eosinophils # (Auto) 0.0, Basophils # (Auto) 0.0, Sodium Level 141, Potassium Level 4.9, Chloride Level 105, Carbon Dioxide Level 25, Anion Gap 11, Blood Urea Nitrogen 59H, Creatinine 1.91H, Estimat Glomerular Filtration Rate 26, BUN/Creatinine Ratio 31, Glucose Level 201H, Calcium Level 8.5, Phosphorus Level 3.6, Magnesium Level 2.2 06/12/19 03:45: Blood Gas Puncture Site RT RADIAL, Blood Gas Patient Temperature 36.3, Arterial Blood pH 7.34*L, Arterial Blood Partial Pressure CO2 56H, Arterial Blood Partial Pressure O2 82, Arterial Blood HCO3 30H, Arterial Blood Total CO2 31.7H, Arterial Blood Oxygen Saturation 97, Arterial Blood Base Excess 4.4H, Clif Test YES-POS, Blood Gas Ventilator Setting NO, Blood Gas Inspired Oxygen 30% Microbiology 06/06/19 Blood Culture - Final, Complete No growth 06/06/19 Influenza Types A,B Antigen (QUYEN) - Final, Complete Assessment/Plan Assessment/Plan Assess & Plan/Chief Complaint Acute mental status resolved. Acute and chronic respiratory failure. Diastolic congestive heart failure. Ammonia. Acute and chronic renal failure. Anemia. Hypercapnia. . 06/10/19. Acute mental status resolved. Acute and chronic respiratory failure. Diastolic congestive heart failure. Pneumonia. Anemia. Hypercapnia. Patient positive about putting on ventilator. . 06/11/19. Acute mental status change resolved. Acute and chronic respiratory failure pattern. Diastolic congestive heart failure. Pneumonia. Anemia. Hypercapnia. . 06/12/19. Acute mental status change resolved. Acute and chronic respiratory failure. Diastolic congestive heart failure. Pneumonia. Anemia. Hypercapnia. Renal insufficiency Clinical Quality Measures DVT/VTE Risk/Contraindication: Risk Factor Score Per Nursin RFS Level Per Nursing on Admit: 4+=Very High AURORA STACK DO Jun 12, 2019 07:38
--- NOTE | 2019-06-12 08:02 | Diagnostic Imaging Report ---
INDICATION: Dyspnea. COMPARISON: 06/11/2019 FINDINGS: Single frontal radiographic view of the chest was obtained and again demonstrates moderate cardiomegaly and pulmonary vascular congestion. Lungs show diffuse prominence of the interstitium. There are probable small bibasilar effusions. Overall, appearance of the chest is stable compared to prior exam. There is no evidence of pneumothorax on either side. Osseous structures show no gross acute abnormalities. IMPRESSION: 1. Cardiomegaly with sequela of CHF including probable interstitial pulmonary edema and small bibasilar effusions. Dictated by: Dictated on workstation # [id number]
--- NOTE | 2019-06-12 09:54 | Occupational Therapy Eval ---
OT Evaluation-General/PLF Medical Diagnosis Admission Date Jun 06, 2019 at 14:54 Medical Diagnosis: acute hypercapnic respiratory failure, community acquired pneumonia Onset Date: Jun 06, 2019 Therapy Diagnosis Therapy Diagnosis: impaired ADLs and functional mobility Height/Weight Height (Feet): 5 Height (Inches): 4.00 Weight (Pounds): 246 Weight (Ounces): 2.0 Precautions Precautions/Isolations: Fall Prevention, Standard Precautions Safety Interventions: None Referral Physician: Meenakshi Referral Reason: Evaluation/Treatment Medical History Pertinent Medical History: Arthritis, COPD, DM, HTN, Renal Insufficiency Additional Medical History HTN, COPD, CKD, heart failure with preserved ejection fracture, morbid obesity, AFib, chronic edema/swelling, high cholesterol, renal failure, arthritis, hypothyroidism, anxiety/depression Current History Per H&P: "Jennifer Woodall is a 68-year-old female with past medical history of hypertension, COPD, CKD, heart failure with preserved ejection fraction, morbid obesity, who presented with altered mental status. I was called to evaluate her on the floor after arrival. She was wearing her BiPAP but was fidgeting and attempting to remove it. I spoke with her and recommended that she keep it on and she was redirectable.she was unable to provide any other meaningful history. There are no family members at the bedside at that time. The workup in the emergency room revealed that she had a an acute hypercapnic respiratory failure, as well as an acute kidney injury, and pneumonia." Reviewed History: Yes Social History Home: Group Home (via [facility]) ADL-Prior Level of Function SCALE: Activities may be completed with or without assistive devices. 2-Ewxjgnowzp-zqvovst completes the activity by him/herself with no assistance from a helper. 5-Set-up or Clean-up Assistance-helper sets up or cleans up; patient completes activity. [place] assists only prior to or following the activity. 4-Supervision or Touching Assistance-helper provides verbal cues and/or touching/steadying and/or contact guard assistance as patient completes activity. Assistance may be provided throughout the activity or intermittently. 3-Partial/Moderate Assistance-helper does LESS THAN HALF the effort. [place] lifts, holds or supports trunk or limbs, but provides less than half the effort. 2-Substantial/Maximal Assistance-helper does MORE THAN HALF the effort. [place] lifts or holds trunk or limbs and provides more than half the effort. 9-Ufqyuwcvu-dqlqap does ALL the effort. Patient does none of the effort to complete the activity. Or, the assistance of 2 or more helpers is required for the patient to complete the activity. If activity was not attempted, code reason: 7-Patient Refused. 9-Not Applicable-not attempted and the patient did not perform the activity be fore the current illness, exacerbation or injury. 10-Not Attempted due to Environmental Limitations-(lack of equipment, weather restraints, etc.). 88-Not Attempted due to Medical Conditions or Safety Concerns. ADL PLOF Comments Pt reports requiring assistance with ADLs, especially with lower body bathing/dressing, she reports being able to complete upper body dressing and bathing when she had energy but required assistance at other times. She primarily gets around using a wheelchair. She also requires set up assistance with food, requiring help with cutting the food prior to eating. Self Care: Needed Some Help Functional Cognition: Independent DME/Equipment Comments wheelchair. OT Current Status Subjective Pt laying in bed at start of session, denied pain. Agreeable to OT evaluation and tx with focus on ADLs Mental Status/Objective Patient Orientation: Person, Place, Time, Situation Attachments: Hines Catheter, IV, Oxygen (vapotherm) Current Glasses/Contacts: Yes Hearing Aids: Yes Dentures/Partials: No Hand Dominance: Right Upper Extremity ROM WFL, BUE shoulder flexion to approx 120 degrees, pt able to bend arms and touch the back of her head. Upper Extremity Coordination WFL Upper Extremity Sensation WFL, pt denies tingling/numbness Upper Extremity Strength grossly 3/5 MMT ADL-Treatment Eating (QC): 6 (Per pt report, she was able to eat breakfast without any assistance.) Oral Hygiene (QC): 7 Shower/Bathe Self (QC): 7 Upper Body Dressing (QC): 7 Lower Body Dressing (QC): 7 On/Off Footwear (QC): 1 (based off of clinical reasoning, pt would be dependent with task.) Toileting Hygiene (QC): 7 Toilet Transfer (QC): 7 Other Treatments Pt laying in bed, provided information about PLOF. Pt then agreed to wash her hair with a shower cap. OT assisted with placing the cap, pt attempted to assist with task, noted increased fatigue and O2 dropping to 85%. Pt instructed to take deep breaths and O2 level raised above 90% within a few seconds. Pt then brushed her hair with O2 levels remaining in the 90s. Pt declined further ADLs at this time stating she was tired. Post OT session, pt laying in bed, call light in reach and all needs met. Education OT Patient Education: Correct positioning, Energy conservation, Modified ADL techniques, Progress toward Goal/Update tx plan, Purpose of tx/functional activities Teaching Recipient: Patient Teaching Methods: Discussion Response to Teaching: Verbalize Understanding OT Nursing Home Goals Apprentice Plant Attendant Goals Time Frame: Jun 27, 2019 Eating (QC): 6 Oral Hygiene (QC): 6 Toileting Hygiene (QC): 3 Shower/Bathe Self (QC): 3 Upper Body Dressing (QC): 3 Lower Body Dressing (QC): 3 On/Off Footwear (QC): 2 Additional Goals: 1-Demonstrate ADL Tasks, 2-Verbalize Understanding, 3- ImproveStrength/Jose J 1=Demonstrate adherence to instructed precautions during ADL tasks. 2=Patient will verbalize/demonstrate understanding of assistive devices/modifications for ADL. 3=Patient will improve strength/tolerance for activity to enable patient to perform ADL's. OT Education/Plan Problem List/Assessment Assessment: Decreased Activ Tolerance, Decreased UE Strength, Dependent Transfers, Impaired Bed Mobility, Impaired Funct Balance, Impaired I ADL's, Impaired Self-Care Skills Discharge Recommendations Plan/Recommendations: Continue POC Treatment Plan/Plan of Care Treatment,Training & Education: Yes Patient would benefit from OT for education, treatment and training to promote independence in ADL's, mobility, safety and/or upper extremity function for ADL's. Plan of Care: ADL Retraining, Caregiver Training, Functional Mobility, UE Funct Exercise/Act Treatment Duration: Jun 27, 2019 Frequency: 5 times per week Estimated Hrs Per Day: .25 hour per day Agreement: Yes Rehab Potential: Fair Time/GCodes Start Time: 09:10 Stop Time: 09:27 Total Time Billed (hr/min): 17 Billed Treatment Time 1, ОЛЬГА MCMULLEN OT Jun 12, 2019 09:54
--- NOTE | 2019-06-12 10:07 | Progress Note - Hospitalist ---
Subjective HPI/CC On Admission Date Seen by Provider: Jun 12, 2019 Time Seen by Provider: 09:00 Jennifer Woodall is a 68-year-old female with past medical history of hypertension, COPD, CKD, heart failure with preserved ejection fraction, morbid obesity, who presented with altered mental status. I was called to evaluate her on the floor after arrival. She was wearing her BiPAP but was fidgeting and attempting to remove it. I spoke with her and recommended that she keep it on and she was redirectable.she was unable to provide any other meaningful history. There are no family members at the bedside at that time. The workup in the emergency room revealed that she had a an acute hypercapnic respiratory failure, as well as an acute kidney injury, and pneumonia. Objective Exam Vital Signs Vital Signs Date Time Temp Pulse Resp B/P (MAP) Pulse Ox O2 Delivery O2 Flow Rate FiO2 06/12/19 09:00 69 12 157/82 (107) 94 NIV Bilevel 25.00 06/12/19 07:07 36.8 06/12/19 03:35 30 Capillary Refill : Less Than 3 Seconds Results/Procedures Lab Laboratory Tests 06/12/19 03:40 Patient resulted labs reviewed. Imaging: Reviewed Imaging Report Clinical Quality Measures DVT/VTE Risk/Contraindication: Risk Factor Score Per Nursin RFS Level Per Nursing on Admit: 4+=Very High GERMANIA QUARLES DO Jun 12, 2019 10:07
[2019-06-12] MEDS: SENNOSIDES 8.6 MG (SENOKOT) TAB PO SCH ×2 (10:12→20:54)
[2019-06-12] MEDS: DOCUSATE SODIUM 100 MG (COLACE) CAP PO SCH ×2 (10:12→20:54)
[2019-06-12] MEDS: PANTOPRAZOLE 40 MG (PROTONIX) VIAL IV SCH ×2 (10:13→21:05)
--- NOTE | 2019-06-12 13:00 | Physical Therapy Evaluation ---
PT Evaluation-General Medical Diagnosis Admission Date Jun 06, 2019 at 14:54 Medical Diagnosis: acute hypercapnic respiratory failure, community acquired pneumonia Onset Date: Jun 06, 2019 Therapy Diagnosis Therapy Diagnosis: generalized weakness/debility Height/Weight Height (Feet): 5 Height (Inches): 4.00 Weight (Pounds): 246 Weight (Ounces): 2.0 Precautions Precautions/Isolations: Fall Prevention, Standard Precautions Weight Bear Status Right Lower Extremity: Right Weight Bearing/Tolerated Left Lower Extremity: Left Weight Bearing/Tolerated Referral Physician: Meenakshi Reason for Referral: Evaluation/Treatment Medical History Pertinent Medical History: Arthritis, COPD, DM, HTN, Neuropathy, Renal Insufficiency Current History EMS to [place] secondary to AMS and SOB Reviewed History: Yes Social History Home: Shelter (via [facility]) Prior Prior Level of Function SCALE: Activities may be completed with or without assistive devices. 8-Hsgbweetjk-rqtikra completes the activity by him/herself with no assistance from a helper. 5-Set-up or Clean-up Assistance-helper sets up or cleans up; patient completes activity. [place] assists only prior to or following the activity. 4-Supervision or Touching Assistance-helper provides verbal cues and/or to uching/steadying and/or contact guard assistance as patient completes activity. Assistance may be provided throughout the activity or intermittently. 3-Partial/Moderate Assistance-helper does LESS THAN HALF the effort. [place] lifts, holds or supports trunk or limbs, but provides less than half the effort. 2-Substantial/Maximal Assistance-helper does MORE THAN HALF the effort. [place] lifts or holds trunk or limbs and provides more than half the effort. 9-Rvzkvcxiv-xqkvja does ALL the effort. Patient does none of the effort to complete the activity. Or, the assistance of 2 or more helpers is required for the patient to complete the activity. If activity was not attempted, code reason: 7-Patient Refused. 9-Not Applicable-not attempted and the patient did not perform the activity before the current illness, exacerbation or injury. 10-Not Attempted due to Environmental Limitations-(lack of equipment, weather restraints, etc.). 88-Not Attempted due to Medical Conditions or Safety Concerns. Bed Mobility: 2 Transfers (B,C,W/C): 2 Gait: 9 Stairs: 9 Wheelchair Mobility: 4 Indoor Mobility (Ambulation): Not [place] Stairs: Not [place] Prior Devices Use: Manual wheelchair non ambulatory PLOF PT Evaluation-Current Subjective Patient agrees to PT. Currently on BiPap. Pain Numeric Pain Scale: 0-No Pain Location: No Pain Reported Objective Patient Orientation: Person, Time, Situation Attachments: Oxygen (BiPap), Hines Catheter ROM/Strength ROM Lower Extremities limited due to morbid obesity Strength Lower Extremities 3/5 grossly bilateral LE Integumentary/Posture Integumentary refer to nursing notes Bladder Incontinence: Hines Cath Posture trunk flexed posture in stand Neuromuscular (Tone, Coordination, Reflexes) diminished coordination due to inactivity PLOF Sensory Vision: Functional Hearing: Functional Hand Dominance: Right Sensation Right Lower Extremit: Impaired Sensation Left Lower Extremity: Impaired Transfers Roll Left to Right (QC): 2 Sit to Lying (QC): 2 Lying to Sitting/Side of Bed(Q: 2 Sit to Stand (QC): 2 Chair/Hqd-lf-Scysv Xfer(QC): 2 Toilet Transfer: 2 Car Transfer (QC): 9 Gait Does the Patient Walk?: No and Walking Goal NOT indicated Wheelchair Training Does the Pt Use a Wheelchair?: Yes Type of Wheelchair: Manual Balance Sitting Static: Fair Sitting Dynamic: Fair Standing Static: Fair Standing Dynamic: Fair Picking up an Object (QC): 9 Assessment/Needs 68 y.o. female, will benefit from skilled PT to address functional strength and transfer training bed to w/c to ensure safe return to [place] at maximum LOF. Rehab Potential: Guarded PT Data Programmer Goals Data Programmer Goals PT Data Programmer Goals Time Frame: Jun 28, 2019 Roll Left & Right (QC): 2 Sit to Lying (QC): 3 Lying-Sitting on Side/Bed(QC): 3 Sit to Stand (QC): 3 Chair/Bmx-gs-Bkcuo Xfer(QC): 3 Does the Patient Walk: No and Walking Goal NOT indicated Does the Pt use WC or Scooter?: Yes Type: Manual Type: Manual PT Plan Problem List Problem List: Activity Tolerance, Functional Strength, Safety, Balance, Transfer, Bed Mobility, ROM Treatment/Plan Treatment Plan: Continue Plan of Care Treatment Plan: Bed Mobility, Education, Functional Activity Jose J, Functional Strength, Safety, Therapeutic Exercise, Transfers Treatment Duration: Jun 28, 2019 Frequency: 5 times per week Estimated Hrs Per Day: .25 hour per day Patient and/or Family Agrees t: Yes Discharge Recommendations Therapy Discharge Recommendati: Other, See Comments (return to [place]) Time/GCodes Time In: 1117 Time Out: 1136 Total Billed Treatment Time: 19 Total [facility] MIGDALIA OSORIO PT Jun 12, 2019 13:00
[2019-06-12] MEDS: cefTRIAXone FOR IV USE 2,000 MG in WATER (STERILE) FOR INJECTION 20 ML IV SCH (16:45)
[2019-06-12] MEDS: HALOPERIDOL 0.5 MG (HALDOL) TAB PO PRN (21:04)
[2019-06-13] VITALS (11 sets, daily range): BP systolic 138–194; BP diastolic 66–128
[2019-06-13] MEDS: RT-ALBUTEROL/IPRATROPIUM 3 ML (DUONEB) VIAL INH SCH ×5 (01:29→18:56)
[2019-06-13 03:57] LABS: BASOPHILS % (AUTO) 0 % (0-10); EOSINOPHILS % (AUTO) 0 % (0-10); HEMATOCRIT 30 % (35-52); HEMOGLOBIN 8.9 G/DL (11.5-16.0); LYMPHOCYTES # (AUTO) 0.3 X 10^3 (1.0-4.0); LYMPHOCYTES % (AUTO) 5 % (12-44); MEAN CORPUSCULAR HEMOGLOBIN 28 PG (25-34); MEAN CORPUSCULAR HGB CONC 30 G/DL (32-36); MEAN CORPUSCULAR VOLUME 96 FL (80-99); MEAN PLATELET VOLUME 11.6 FL (7.4-10.4); MONOCYTES # (AUTO) 0.3 X 10^3 (0.0-1.0); MONOCYTES % (AUTO) 4 % (0-12); NEUTROPHILS % (AUTO) 91 % (42-75); PLATELET COUNT 94 10^3/uL (130-400); RED CELL DISTRIBUTION WIDTH 14.9 % (10.0-14.5); WHITE BLOOD COUNT 6.6 10^3/uL (4.3-11.0)
[2019-06-13 04:20] LABS: CALCIUM 8.4 MG/DL (8.5-10.1); CREATININE SERUM 1.58 MG/DL (0.60-1.30); MAGNESIUM 2.2 MG/DL (1.6-2.4); PHOSPHORUS 3.5 MG/DL (2.3-4.7); POTASSIUM 4.6 MMOL/L (3.6-5.0)
[2019-06-13] MEDS: meTOprolol 5 MG/5 ML (LOPRESSOR) VIAL IV SCH ×4 (05:29→21:33)
[2019-06-13] MEDS: inSUlin ASPART (NovoLOG) 1 UNIT/0.01 ML (CHARGE PER UNIT) SC SCH ×4 (05:30→21:33)
[2019-06-13] MEDS: MAGNESIUM 1 GM/100 ML IVPB 100 ML IV SCH (05:30)
[2019-06-13] MEDS: POTASSIUM CL 10MEQ/50ML IVPB 50 ML IV SCH (05:30)
[2019-06-13] MEDS: KCL 20 MEQ TAB (K-DUR) PO SCH (05:30)
[2019-06-13] MEDS: CATHETER FLUSH 10 ML SYR IV SCH ×3 (05:31→21:34)
[2019-06-13] MEDS: methylPREDNISolone 40 MG/ML (Solu-MEDROL) VIAL IV SCH ×4 (05:31→21:33)
[2019-06-13 06:30] LABS: LYMPHOCYTES % (MANUAL) 7 %; MONOCYTES % (MANUAL) 4 %; NEUTROPHILS % (MANUAL) 89 %
[2019-06-13] MEDS: ENOXAPARIN 40 MG/0.4 ML (LOVENOX) SYR SC SCH (07:29)
--- NOTE | 2019-06-13 07:43 | Diagnostic Imaging Report ---
EXAMINATION: Portable erect AP chest at 341h/ INDICATION: Respiratory distress The cardiomegaly noted on the prior exam of 06/12/2019 is again evident and no different. The central pulmonary vasculature is not seen to be engorged. Both lung bases do seem somewhat better aerated. There is still a small amount of residual atelectasis/infiltrate and fluid in each lower lobe. The mediastinum is not widened. The osseous structures are intact. IMPRESSION: The appearance of the chest has improved somewhat as the lung bases do seem better aerated. There is still some residual atelectasis/infiltrate and fluid bilaterally. Dictated by: Dictated on workstation # [id number]
--- NOTE | 2019-06-13 09:58 | Occupational Ther Daily Note ---
OT Current Status-Daily Note Subjective Pt laying in bed at start of session, stating she is still trying to wake up this morning. Pt did not report any pain. ADL-Treatment Therapy Code Descriptions/Definitions Functional [place] Measure: 0=Not Assessed/NA 4=Minimal Assistance 1=Total Assistance 5=Supervision or Setup 2=Maximal Assistance 6=Modified [place] 3=Moderate Assistance 7=Complete IndependenceSCALE: Activities may be completed with or without assistive devices. 6-Lgmlqoiria-unshown completes the activity by him/herself with no assistance from a helper. 5-Set-up or Clean-up Assistance-helper sets up or cleans up; patient completes activity. [place] assists only prior to or following the activity. 4-Supervision or Touching Assistance-helper provides verbal cues and/or touching/steadying and/or contact guard assistance as patient completes activi ty. Assistance may be provided throughout the activity or intermittently. 3-Partial/Moderate Assistance-helper does LESS THAN HALF the effort. [place] lifts, holds or supports trunk or limbs, but provides less than half the effort. 2-Substantial/Maximal Assistance-helper does MORE THAN HALF the effort. [place] lifts or holds trunk or limbs and provides more than half the effort. 6-Syxmhlssu-dsbcas does ALL the effort. Patient does none of the effort to complete the activity. Or, the assistance of 2 or more helpers is required for the patient to complete the activity. If activity was not attempted, code reason: 7-Patient Refused. 9-Not Applicable-not attempted and the patient did not perform the activity before the current illness, exacerbation or injury. 10-Not Attempted due to Environmental Limitations-(lack of equipment, weather restraints, etc.). 88-Not Attempted due to Medical Conditions or Safety Concerns. Shower/Bathe Self (QC): 1 (Pt agreeable to sponge bath on this date, her O2 levels dropping to around 85%, Pt able to take deep breaths in through [place] in order to bring O2 levels to upper 80's. OT assisted pt with all parts of sponge bath due to drop in O2 levels with activity.) Other Treatment Pt laying in bed at start of session, agreeable to sponge bath (see note above). O2 levels in the low 90s at start of session, with activity dropping between 82- 85%. OT notified nurse. OT educated pt on taking deep breaths in through [place] and out through her mouth in order to raise OT level, pt stated she didn't think it would help and needed her BiPAP machine back on. Pt able to raise OT level to 88% after a minute of deep breathing. OT notified nursing of pt's position, and pt's requesting to have her BiPAP. Post OT session, pt laying in bed, call light in reach and all needs met. Education OT Patient Education: Correct positioning, Energy conservation, Modified ADL techniques, Progress toward Goal/Update tx plan, Purpose of tx/functional activities Teaching Recipient: Patient Teaching Methods: Demonstration Response to Teaching: Verbalize Understanding OT Senior Care Goals Senior Care Goals Time Frame: Jun 27, 2019 Eating (QC): 6 Oral Hygiene (QC): 6 Toileting Hygiene (QC): 3 Shower/Bathe Self (QC): 3 Upper Body Dressing (QC): 3 Lower Body Dressing (QC): 3 On/Off Footwear (QC): 2 Additional Goals: 1-Demonstrate ADL Tasks, 2-Verbalize Understanding, 3- ImproveStrength/Jose J 1=Demonstrate adherence to instructed precautions during ADL tasks. 2=Patient will verbalize/demonstrate understanding of assistive devices/modifications for ADL. 3=Patient will improve strength/tolerance for activity to enable patient to perform ADL's. OT Education/Plan Problem List/Assessment Assessment: Decreased Activ Tolerance, Decreased UE Strength, Impaired Bed Mobility Discharge Recommendations Plan/Recommendations: Continue POC Treatment Plan/Plan of Care Treatment,Training & Education: Yes Patient would benefit from OT for education, treatment and training to promote independence in ADL's, mobility, safety and/or upper extremity function for ADL's. Plan of Care: ADL Retraining, Caregiver Training, Functional Mobility, UE Funct Exercise/Act Treatment Duration: Jun 27, 2019 Frequency: 5 times per week Estimated Hrs Per Day: .25 hour per day Agreement: Yes Rehab Potential: Guarded Time/GCodes Start Time: 09:05 Stop Time: 09:20 Total Time Billed (hr/min): 15 Billed Treatment Time 1, ADL ОЛЬГА [place] OT Jun 13, 2019 09:58
[2019-06-13] MEDS: PANTOPRAZOLE 40 MG (PROTONIX) VIAL IV SCH ×2 (10:15→21:33)
[2019-06-13] MEDS: DOCUSATE SODIUM 100 MG (COLACE) CAP PO SCH ×2 (10:16→21:33)
[2019-06-13] MEDS: SENNOSIDES 8.6 MG (SENOKOT) TAB PO SCH ×2 (10:16→21:33)
--- NOTE | 2019-06-13 10:20 | NUR ---
"RD ASSESSMENT PMHx: COPD; HTN; CKD; HFpEF; hypercholesterolemia; GERD; hypothyroidism PT INTERACTION: Pt was awake and pleasant during nutrition assessment for LOS. Pt states current appetite is so-so, and has been for some time. Note pt avg PO intake of 70% x2d, per chart review. Pt states following a regular diet at home and has difficulty chewing food d/t missing teeth. Pt states no recent issues with n/v at this time. Pt states unsure of constipation/diarrhea issues, and is unsure of last BM. Note no BM has been recorded and pt currently on bowel regimen of colace BID and senna BID, per chart review. Pt states recent fluctuating wt changes d/t fluid shifts. Note recent 4# wt gain x1mon, per chart review. ABNORMAL NUTRITION-RELATED LAB VALUES LOW: Ca 8.4 HIGH: BUN 55; cr 1.58; glu 163 Est. kcal needs: 8467-4327 kcal | 15-18 kcal/kg Est. Pro needs: 92-115 g Pro | 0.8-1.0 g Pro/kg PES STATEMENT: Inadequate oral intake (NI-2.1) related to loss of appetite | chewing difficulty | constipation as evidenced by pt interview | avg PO intake 70% x2d INTERVENTION: Recommend switch current diet order from CHO 75g/m 0snack diet with Heart Healthy modifier to DYS3 Advanced diet with CHO 75g/m 0snack and Heart Healthy modifier, for pt tolerance. Add Ensure Enlive (karthik/straw) to meals BID for increased kcal intake. Provides 350 kcal and 13 g Pro per serving. Will continue to follow and reassess as pt needs and status change. MONITOR/EVALUATE: PO Intake; Plan of Care; Hydration Status; Weight Status; Lab Values Collin Barrios, MS, RD, LD"
[2019-06-13 10:37] LABS: ABG BASE EXCESS 4.5 MMOL/L (-2.5-2.5); ABG OXYGEN SATURATION 93 % (94-100); ABG PCO2 55 MMHG (35-45); ABG PH 7.35 (7.37-7.43); ABG PO2 60 MMHG (79-93); ABG TCO2 31.5 MMOL/L (21.0-31.0)
[2019-06-13 10:41] LABS: ALLENS TEST YES-POS; INSPIRED O2 40%; PATIENT TEMP 36.8; VENTILATOR NO
--- NOTE | 2019-06-13 11:11 | Physical Therapy Daily Note ---
PT Daily Note-Current Subjective Patient declined OOB activity and agrees to exercises only. Patient on BiPap and reports she had a hard time recovering after OOB in w/c yesterday. Mental Status Patient Orientation: Normal For Age Attachments: Oxygen (BiPap), Hines Catheter, IV Transfers SCALE: Activities may be completed with or without assistive devices. 5-Emaldvhiza-bxqviur completes the activity by him/herself with no assistance from a helper. 5-Set-up or Clean-up Assistance-helper sets up or cleans up; patient completes activity. [place] assists only prior to or following the activity. 4-Supervision or Touching Assistance-helper provides verbal cues and/or touching/steadying and/or contact guard assistance as patient completes activity. Assistance may be provided throughout the activity or intermittently. 3-Partial/Moderate Assistance-helper does LESS THAN HALF the effort. [place] lifts, holds or supports trunk or limbs, but provides less than half the effort. 2-Substantial/Maximal Assistance-helper does MORE THAN HALF the effort. [place] lifts or holds trunk or limbs and provides more than half the effort. 7-Aaeydalrx-rmwsst does ALL the effort. Patient does none of the effort to complete the activity. Or, the assistance of 2 or more helpers is required for the patient to complete the activity. If activity was not attempted, code reason: 7-Patient Refused. 9-Not Applicable-not attempted and the patient did not perform the activity before the current illness, exacerbation or injury. 10-Not Attempted due to Environmental Limitations-(lack of equipment, weather restraints, etc.). 88-Not Attempted due to Medical Conditions or Safety Concerns. Weight Bearing Right Lower Extremity: Right Weight Bearing/Tolerated Left Lower Extremity: Left Weight Bearing/Tolerated Exercises Supine Ex: Ankle pumps, Quad Set, Heel Slides, Straight leg raise, Hip abd/add Supine Reps: 15 ( x 2 AAROM bilaterally) Assessment Patient's SAO2 decreased to 88% on BiPap with AAROM in bed. RN notified. PT Intermediate Goals Log [place] Goals PT Intermediate Goals Time Frame: Jun 28, 2019 Roll Left & Right (QC): 2 Sit to Lying (QC): 3 Lying-Sitting on Side/Bed(QC): 3 Sit to Stand (QC): 3 Chair/Ofj-jo-Awbge Xfer(QC): 3 Does the Patient Walk: No and Walking Goal NOT indicated Does the Pt use WC or Scooter?: Yes Type: Manual Type: Manual PT Plan Treatment/Plan Treatment Plan: Continue Plan of Care Treatment Plan: Bed Mobility, Education, Functional Activity Jose J, Functional Strength, Safety, Therapeutic Exercise, Transfers Treatment Duration: Jun 28, 2019 Frequency: 5 times per week Estimated Hrs Per Day: .25 hour per day Patient and/or Family Agrees t: Yes Time/GCodes Time In: 1030 Time Out: 1043 Total Billed Treatment Time: 13 Total Billed Treatment 1 visit EX 13 min MIGDALIA OSORIO PT Jun 13, 2019 11:11
[2019-06-13] MEDS: RT-BUDESONIDE NEBS 0.5 MG/2ML (PULMICORT) AMP INH SCH ×2 (11:38→18:55)
--- NOTE | 2019-06-13 13:05 | NUR ---
The pt said she misses specific [facility] staff and neighboring residents with whom she has supportive, caring relationships. She expressed sadness that she is in the hospital during the [place] season and states she struggles with loneliness and feeling forgotten, commenting that our visits mitigate these feelings. Offered compassionate presence and empathic listening.
--- NOTE | 2019-06-13 13:13 | Progress Note ---
Subjective Time Seen by a Provider: 13:07 Subjective/Events-last exam Patient doing better. Patient in cardiac stepdown. GFR improved some area Objective Exam Vital Signs Date Time Temp Pulse Resp B/P (MAP) Pulse Ox O2 Delivery O2 Flow Rate FiO2 06/13/19 12:32 73 06/13/19 11:39 61 20 96 25.00 06/13/19 10:00 71 13 93 NIV Bilevel 25.00 06/13/19 09:46 NIV Bilevel 40.00 06/13/19 08:00 36.4 06/13/19 07:02 91 Vapotherm 20.00 25 06/13/19 07:00 72 06/13/19 05:31 138/66 (90) 06/13/19 04:00 64 23 143/68 (93) 97 NIV Bilevel 30.00 06/13/19 01:32 61 20 96 30.00 06/13/19 01:26 36.6 68 16 143/68 (93) 93 NIV Bilevel 30.00 06/13/19 01:00 63 06/13/19 00:00 62 24 143/68 (93) 96 Vapotherm 20.00 35.00 06/12/19 21:59 68 18 94 30.00 06/12/19 20:00 69 18 161/79 (106) 96 Vapotherm 20.00 35.00 06/12/19 20:00 36.4 06/12/19 20:00 94 Vapotherm 30 06/12/19 19:53 36.4 161/79 (106) Vapotherm 20.00 35.00 06/12/19 19:00 65 06/12/19 18:21 95 Vapotherm 20.00 35 06/12/19 17:00 65 18 154/74 (100) 97 NIV Bilevel 25.00 06/12/19 16:15 36.6 06/12/19 16:00 63 12 () 100 NIV Bilevel 25.00 06/12/19 15:00 68 21 97 NIV Bilevel 25.00 06/12/19 14:59 96 Vapotherm 20.00 35 I & O 06/13/19 07:00 Intake Total 1820 ml Output Total 1500 ml Balance 320 ml Capillary Refill : Less Than 3 Seconds General Appearance: No Apparent Distress, WD/WN HEENT: Normal ENT Inspection Neck: Full Range of Motion, Normal Inspection Respiratory: No Accessory Muscle Use, No Respiratory Distress, Decreased Breath Sounds Cardiovascular: Regular Rate, Rhythm Gastrointestinal: non tender, soft Results Lab Laboratory Tests 06/13/19 03:14 Laboratory Tests 06/12/19 16:14: Glucometer 186H 06/12/19 20:40: Glucometer 188H 06/13/19 03:14: White Blood Count 6.6, Red Blood Count 3.14L, Hemoglobin 8.9L, Hematocrit 30L, Mean Corpuscular Volume 96, Mean Corpuscular Hemoglobin 28, Mean Corpuscular Hemoglobin Concent 30L, Red Cell Distribution Width 14.9H, Platelet Count 94L, Mean Platelet Volume 11.6H, Neutrophils (%) (Auto) 91H, Lymphocytes (%) (Auto) 5L, Monocytes (%) (Auto) 4, Eosinophils (%) (Auto) 0, Basophils (%) (Auto) 0, Neutrophils # (Auto) 6.0, Lymphocytes # (Auto) 0.3L, Monocytes # (Auto) 0.3, Eosinophils # (Auto) 0.0, Basophils # (Auto) 0.0, Neutrophils % (Manual) 89, Lymphocytes % (Manual) 7, Monocytes % (Manual) 4, Sodium Level 140, Potassium Level 4.6, Chloride Level 105, Carbon Dioxide Level 25, Anion Gap 10, Blood Urea Nitrogen 55H, Creatinine 1.58H, Estimat Glomerular Filtration Rate 32, BUN/Creatinine Ratio 35, Glucose Level 163H, Calcium Level 8.4L, Phosphorus Level 3.5, Magnesium Level 2.2 06/13/19 10:31: Blood Gas Puncture Site RR, Blood Gas Patient Temperature 36.8, Arterial Blood pH 7.35L, Arterial Blood Partial Pressure CO2 55H, Arterial Blood Partial Pressure O2 60L, Arterial Blood HCO3 30H, Arterial Blood Total CO2 31.5H, Arterial Blood Oxygen Saturation 93L, Arterial Blood Base Excess 4.5H, Clif Test YES-POS, Blood Gas Ventilator Setting NO, Blood Gas Inspired Oxygen 40% 06/13/19 11:01: Glucometer 187H Microbiology 06/06/19 Blood Culture - Final, Complete No growth 06/06/19 Influenza Types A,B Antigen (QUYEN) - Final, Complete Assessment/Plan Assessment/Plan Assess & Plan/Chief Complaint Acute mental status resolved. Acute and chronic respiratory failure. Diastolic congestive heart failure. Ammonia. Acute and chronic renal failure. Anemia. Hypercapnia. . 06/10/19. Acute mental status resolved. Acute and chronic respiratory failure. Diastolic congestive heart failure. Pneumonia. Anemia. Hypercapnia. Patient positive about putting on ventilator. . 06/11/19. Acute mental status change resolved. Acute and chronic respiratory failure pattern. Diastolic congestive heart failure. Pneumonia. Anemia. Hypercapnia. . 06/12/19. Acute mental status change resolved. Acute and chronic respiratory failure. Diastolic congestive heart failure. Pneumonia. Anemia. Hypercapnia. Renal insufficiency. . 11/11/18. Acute mental status change. Acute and chronic respiratory failure. Diastolic congestive heart failure. Pneumonia. Hypercapnia. Renal insufficiency. Patient transferred to cardiac stepdown Clinical Quality Measures DVT/VTE Risk/Contraindication: Risk Factor Score Per Nursin RFS Level Per Nursing on Admit: 4+=Very High AURORA STACK DO Jun 13, 2019 13:13
--- NOTE | 2019-06-13 13:30 | NUR ---
TRANSFERRED FROM ICU TO ROOM 509. REPORT WAS GIVEN BY HEATHER BESS. VAPOTHERM ON AT 20LPM, 30 %O2. DENIES PAIN PRESENTLY. LR CATHETER INTACT. SALINE LOCK IN RIGHT UPPER ARM.
--- NOTE | 2019-06-13 14:39 | NUR ---
DUE TO CHANGES IN STAFFING CARE OF PT TO JAMIA BESS PT ON [facility] UNIT.
--- NOTE | 2019-06-13 16:00 | NUR ---
VERY ANXIOUS. REFUSES TO TURN. STATES "TROUBLE BREATHING AND WANTS BACK ON BIPAP". O2 SAT 92% ON VAPOTHERM. CRYING NOT TO LEAVE HER ALONE. COMPLAIN THROAT PAIN "FROM ANXIETY AND TROUBLE BREATHING". MEDICATED WITH OXY ORDERED. HYPERTENSIVE. HAS BEEN MEDICATED WITH IV LOPRESSOR.
[2019-06-13] MEDS: CATHETER FLUSH 10 ML SYR IV PRN (16:33)
[2019-06-13] MEDS: cefTRIAXone FOR IV USE 2,000 MG in WATER (STERILE) FOR INJECTION 20 ML IV SCH (16:41)
[2019-06-13] MEDS ORDERED: amLODIPine 5 MG (NORVASC) TAB PO NR (18:00)
--- NOTE | 2019-06-13 18:00 | NUR ---
MORE RELAXED NOW AND EYES CLOSED, BUT REMAINS HYPERTENSIVE. SEE VITAL SIGN INTERVENTION. O2 SAT 95% ON BIPAP. DR. CHILDERS NOTIFIED AND ONE TIME ORDER OF AMLODIPINE ORDERED.
[2019-06-14] VITALS (8 sets, daily range): BP systolic 161–185; BP diastolic 5–81
[2019-06-14] MEDS: RT-ALBUTEROL/IPRATROPIUM 3 ML (DUONEB) VIAL INH SCH ×5 (03:21→22:29)
[2019-06-14 04:19] LABS: BASOPHILS % (AUTO) 0 % (0-10); EOSINOPHILS % (AUTO) 0 % (0-10); HEMATOCRIT 32 % (35-52); HEMOGLOBIN 9.4 G/DL (11.5-16.0); LYMPHOCYTES # (AUTO) 0.2 X 10^3 (1.0-4.0); LYMPHOCYTES % (AUTO) 3 % (12-44); MEAN CORPUSCULAR HEMOGLOBIN 28 PG (25-34); MEAN CORPUSCULAR HGB CONC 29 G/DL (32-36); MEAN CORPUSCULAR VOLUME 95 FL (80-99); MEAN PLATELET VOLUME 11.1 FL (7.4-10.4); MONOCYTES # (AUTO) 0.2 X 10^3 (0.0-1.0); MONOCYTES % (AUTO) 2 % (0-12); NEUTROPHILS # (AUTO) 8.2 X 10^3 (1.8-7.8); NEUTROPHILS % (AUTO) 95 % (42-75); PLATELET COUNT 107 10^3/uL (130-400); RED CELL DISTRIBUTION WIDTH 15.3 % (10.0-14.5); WHITE BLOOD COUNT 8.7 10^3/uL (4.3-11.0)
[2019-06-14 04:46] LABS: CALCIUM 8.2 MG/DL (8.5-10.1); CREATININE SERUM 1.52 MG/DL (0.60-1.30); MAGNESIUM 2.3 MG/DL (1.6-2.4); PHOSPHORUS 3.4 MG/DL (2.3-4.7)
--- NOTE | 2019-06-14 05:49 | Pulmonary Progress Note ---
Sepsis Event Evaluation Height, Weight, BMI Height: 5'4.00" Weight: 246lbs. 2.0oz. 111.263542tn; 39.51 BMI Method:Stated Exam Exam Vital Signs Date Time Temp Pulse Resp B/P (MAP) Pulse Ox O2 Delivery O2 Flow Rate FiO2 06/14/19 03:55 35.9 72 171/75 (107) 94 Vapotherm 25.00 30.00 06/14/19 03:22 84 Vapotherm 25.00 30 06/14/19 01:00 67 06/14/19 00:00 36.8 70 16 161/5 (56) 94 NIV Bilevel 25.00 06/13/19 21:55 75 23 90 25.00 06/13/19 20:00 94 Vapotherm 30 06/13/19 19:30 36.4 68 18 191/128 (149) 93 Vapotherm 06/13/19 19:00 74 06/13/19 18:56 60 20 98 25.00 06/13/19 18:30 80 193/80 (117) 06/13/19 17:30 71 194/79 (117) 90 NIV Bilevel 06/13/19 16:00 37.1 89 20 189/77 (114) 91 Vapotherm 20.00 30.00 06/13/19 14:40 93 Vapotherm 20.00 30.00 06/13/19 14:13 84 Vapotherm 20.00 25 06/13/19 14:00 76 18 175/75 (108) 91 Vapotherm 06/13/19 12:32 73 06/13/19 12:00 36.5 06/13/19 11:39 61 20 96 25.00 06/13/19 10:00 71 13 93 NIV Bilevel 25.00 06/13/19 09:46 NIV Bilevel 40.00 06/13/19 08:15 94 Vapotherm 30 06/13/19 08:00 36.4 06/13/19 07:02 91 Vapotherm 20.00 25 06/13/19 07:00 72 I & O 06/14/19 07:00 Intake Total 600 ml Output Total 675 ml Balance -75 ml Height & Weight Height: 5'4.00" Weight: 246lbs. 2.0oz. 111.329816ml; 39.51 BMI Method:Stated General Appearance: No Apparent Distress, WD/WN HEENT: Normal ENT Inspection Neck: Full Range of Motion, Normal Inspection Respiratory: No Accessory Muscle Use, No Respiratory Distress, Decreased Breath Sounds Cardiovascular: Regular Rate, Rhythm Capillary Refill: Less Than 3 Seconds Gastrointestinal: non tender, soft Extremity: Normal Inspection, Non Tender, No Pedal Edema Neurologic/Psychiatric: Alert, No Motor/Sensory Deficits; No Disoriented Skin: Normal Color, Warm/Dry Results Lab Laboratory Tests 06/13/19 03:14 06/14/19 03:40 Assessment/Plan Assessment/Plan Acute on chronic respiratory failure -Currently requiring BiPAP -- -Continue to decrease FiO2 - BiPAP and continue to montior Acute on chronic renal insuff - Monitor -Base line Cr around 1.4 -Agree with IVF -- change to D5W Diastolic CHF grade II - -Monitor Cr close macrocytic Anemia -Protonix Q12 -Occult stool pending Metabolic encephalopathy PNA -Rocephin/Azithromycin -Alvares cultures pending -No fever Anemia -Monitor ESTRELLITA PITT DO Jun 14, 2019 05:49
[2019-06-14] MEDS: methylPREDNISolone 40 MG/ML (Solu-MEDROL) VIAL IV SCH ×4 (05:56→21:25)
[2019-06-14] MEDS: ENOXAPARIN 40 MG/0.4 ML (LOVENOX) SYR SC SCH (05:56)
[2019-06-14] MEDS: meTOprolol 5 MG/5 ML (LOPRESSOR) VIAL IV SCH ×2 (05:56→11:04)
[2019-06-14] MEDS: CATHETER FLUSH 10 ML SYR IV SCH ×3 (05:57→22:56)
[2019-06-14] MEDS: inSUlin ASPART (NovoLOG) 1 UNIT/0.01 ML (CHARGE PER UNIT) SC SCH ×4 (05:57→22:56)
[2019-06-14] MEDS: RT-BUDESONIDE NEBS 0.5 MG/2ML (PULMICORT) AMP INH SCH ×2 (07:02→18:40)
--- NOTE | 2019-06-14 07:15 | Diagnostic Imaging Report ---
EXAMINATION: Chest 1 view HISTORY: Shortness of breath COMPARISON: 06/13/2019 FINDINGS: Heart size is accentuated by portable technique but is still is mildly enlarged. May be a small left pleural effusion, unchanged. No pneumothorax. No edema or pneumonia. IMPRESSION: 1. Possible small left pleural effusion, unchanged. Dictated by: Dictated on workstation # [id number]
[2019-06-14] MEDS: DOCUSATE SODIUM 100 MG (COLACE) CAP PO SCH ×2 (09:30→22:55)
[2019-06-14] MEDS: SENNOSIDES 8.6 MG (SENOKOT) TAB PO SCH ×2 (09:30→22:55)
[2019-06-14] MEDS: PANTOPRAZOLE 40 MG (PROTONIX) VIAL IV SCH ×2 (09:30→21:24)
--- NOTE | 2019-06-14 11:09 | Physical Therapy Progress Note ---
Therapy Progress Note Pt declined out of bed to the chair this morning. Pt and nurse report she sat EOB for breakfast and plans to do the same for lunch. No treatment rendered this date. RAMOS BOYKIN PT Jun 14, 2019 11:09
[2019-06-14] MEDS ORDERED: NITROGLYCERIN 2% OINT 1 GM UNIT DOSE PACKET TOP PRN (14:15)
--- NOTE | 2019-06-14 16:16 | Progress Note - Hospitalist ---
Subjective HPI/CC On Admission Date Seen by Provider: Jun 14, 2019 Time Seen by Provider: 16:09 Jennifer Woodall is a 68-year-old female with past medical history of hypertension, COPD, CKD, heart failure with preserved ejection fraction, morbid obesity, who presented with altered mental status. I was called to evaluate her on the floor after arrival. She was wearing her BiPAP but was fidgeting and attempting to remove it. I spoke with her and recommended that she keep it on and she was redirectable.she was unable to provide any other meaningful history. There are no family members at the bedside at that time. The workup in the emergency room revealed that she had a an acute hypercapnic respiratory failure, as well as an acute kidney injury, and pneumonia. Subjective/Events-last exam Patient reports having persistent anxiety. Would like something for it. But the declines any medications for anxiety. States and said she would like to be talked to to calm down and have dark chocolate. She does state Haldol helped two nights ago and would like to continue that when other measures don't work. Objective Exam Vital Signs Vital Signs Date Time Temp Pulse Resp B/P (MAP) Pulse Ox O2 Delivery O2 Flow Rate FiO2 06/14/19 16:00 36.9 74 20 178/71 (106) 92 NIV Bilevel 25.00 06/14/19 14:05 30 Capillary Refill : Less Than 3 Seconds General Appearance: No Apparent Distress, Chronically ill, Obese Respiratory: Lungs Clear, No Accessory Muscle Use Cardiovascular: Regular Rate, Rhythm, No Murmur Gastrointestinal: Normal Bowel Sounds, Non Tender, Soft Neurologic/Psychiatric: Alert, Oriented x3 Results/Procedures Lab Laboratory Tests 06/14/19 03:40 Patient resulted labs reviewed. Imaging: Reviewed Imaging Report Assessment/Plan Assessment and Plan Assess & Plan/Chief Complaint Acute hypercapnic respiratory failure Community acquired pneumonia COPD with acute exacerbation Chronic diastolic heart failure pulmonology consulted, appreciate recommendations Continue BiPAP prn Continue antibiotics for pneumonia Continue steroids for COPD exacerbation KAIN on CKD Hypernatremia Resolved- creatinine stable Essential hypertension Resume home metoprolol, stop IV - Nitro paste prn Generalized anxiety disorder - Does not want medications if able - Haldol available prn Morbid obesity Clinically significant, no acute management needs DVT prophylaxis: Lovenox Clinical Quality Measures DVT/VTE Risk/Contraindication: Risk Factor Score Per Nursin RFS Level Per Nursing on Admit: 4+=Very High BRANDIE OTT MD Jun 14, 2019 4:16 pm
[2019-06-14] MEDS: meTOprolol TARTRATE 25 MG (LOPRESSOR) TABLET PO SCH (21:25)
[2019-06-15] VITALS (7 sets, daily range): BP systolic 124–189; BP diastolic 60–90
[2019-06-15] MEDS: HALOPERIDOL 0.5 MG (HALDOL) TAB PO PRN (00:46)
[2019-06-15] MEDS: RT-ALBUTEROL/IPRATROPIUM 3 ML (DUONEB) VIAL INH SCH ×6 (02:08→23:17)
[2019-06-15] MEDS: HALOPERIDOL 5 MG/ML (HALDOL) AMP IM PRN (02:16)
[2019-06-15 03:59] LABS: BASOPHILS % (AUTO) 0 % (0-10); EOSINOPHILS % (AUTO) 0 % (0-10); HEMATOCRIT 32 % (35-52); HEMOGLOBIN 9.3 G/DL (11.5-16.0); LYMPHOCYTES # (AUTO) 0.2 X 10^3 (1.0-4.0); LYMPHOCYTES % (AUTO) 2 % (12-44); MEAN CORPUSCULAR HEMOGLOBIN 28 PG (25-34); MEAN CORPUSCULAR HGB CONC 29 G/DL (32-36); MEAN CORPUSCULAR VOLUME 96 FL (80-99); MEAN PLATELET VOLUME 11.4 FL (7.4-10.4); MONOCYTES # (AUTO) 0.2 X 10^3 (0.0-1.0); MONOCYTES % (AUTO) 1 % (0-12); NEUTROPHILS % (AUTO) 96 % (42-75); PLATELET COUNT 116 10^3/uL (130-400); RED CELL DISTRIBUTION WIDTH 15.4 % (10.0-14.5); WHITE BLOOD COUNT 10.4 10^3/uL (4.3-11.0)
[2019-06-15 04:14] LABS: CALCIUM 8.3 MG/DL (8.5-10.1); CREATININE SERUM 1.31 MG/DL (0.60-1.30); MAGNESIUM 2.3 MG/DL (1.6-2.4); PHOSPHORUS 3.2 MG/DL (2.3-4.7); POTASSIUM 5.3 MMOL/L (3.6-5.0)
[2019-06-15] MEDS: methylPREDNISolone 40 MG/ML (Solu-MEDROL) VIAL IV SCH (04:26)
[2019-06-15] MEDS: inSUlin ASPART (NovoLOG) 1 UNIT/0.01 ML (CHARGE PER UNIT) SC SCH ×4 (06:03→21:09)
[2019-06-15] MEDS: LEVOTHYROXINE 75 MCG (LEVOTHROID) TABLET PO SCH (06:04)
[2019-06-15] MEDS: CATHETER FLUSH 10 ML SYR IV SCH ×3 (06:04→21:44)
[2019-06-15] MEDS: ENOXAPARIN 40 MG/0.4 ML (LOVENOX) SYR SC SCH ×2 (06:04→18:42)
[2019-06-15] MEDS: LEVOTHYROXINE 100 MCG (LEVOTHROID) TAB PO SCH (06:04)
--- NOTE | 2019-06-15 06:50 | Diagnostic Imaging Report ---
Portable erect AP chest at 351 hours. INDICATION: Dyspnea. FINDINGS: The cardiomegaly noted on the prior exam of 06/14/2019 is again evident and no different. The interstitial densities in both lungs are somewhat less prominent than on the prior study. The small bilateral pleural effusions noted previously study are again evident and no different. The mediastinum is not widened. The osseous structures are intact. IMPRESSION: The overall appearance of the chest has not changed significantly. However, the interstitial densities in both lungs do seem less prominent. A follow-up study would be recommended for continued evaluation. Dictated by: Dictated on workstation # [id number]
[2019-06-15] MEDS: meTOprolol TARTRATE 25 MG (LOPRESSOR) TABLET PO SCH ×2 (08:22→20:30)
[2019-06-15] MEDS: PANTOPRAZOLE 40 MG (PROTONIX) VIAL IV SCH (08:22)
[2019-06-15] MEDS: SENNOSIDES 8.6 MG (SENOKOT) TAB PO SCH ×2 (08:22→20:29)
[2019-06-15] MEDS: DOCUSATE SODIUM 100 MG (COLACE) CAP PO SCH ×2 (08:22→20:29)
[2019-06-15] MEDS: RT-BUDESONIDE NEBS 0.5 MG/2ML (PULMICORT) AMP INH SCH ×2 (10:10→18:48)
--- NOTE | 2019-06-15 10:10 | Progress Note - Hospitalist ---
Subjective HPI/CC On Admission Date Seen by Provider: Jun 15, 2019 Time Seen by Provider: 10:07 Jennifer Woodall is a 68-year-old female with past medical history of hypertension, COPD, CKD, heart failure with preserved ejection fraction, morbid obesity, who presented with altered mental status. I was called to evaluate her on the floor after arrival. She was wearing her BiPAP but was fidgeting and attempting to remove it. I spoke with her and recommended that she keep it on and she was redirectable.she was unable to provide any other meaningful history. There are no family members at the bedside at that time. The workup in the emergency room revealed that she had a an acute hypercapnic respiratory failure, as well as an acute kidney injury, and pneumonia. Subjective/Events-last exam Pt reports feeling better. Had a hard time sleeping last night. Objective Exam Vital Signs Vital Signs Date Time Temp Pulse Resp B/P (MAP) Pulse Ox O2 Delivery O2 Flow Rate FiO2 06/15/19 08:21 35.8 82 20 165/72 (103) 96 Vapotherm 25.00 30.00 06/15/19 08:00 30 Capillary Refill : Less Than 3 Seconds General Appearance: No Apparent Distress, Chronically ill, Obese Respiratory: Lungs Clear, No Respiratory Distress Cardiovascular: Regular Rate, Rhythm, No Murmur Neurologic/Psychiatric: Alert, Oriented x3 Results/Procedures Lab Laboratory Tests 06/15/19 03:49 Patient resulted labs reviewed. Imaging: Reviewed Imaging Report Assessment/Plan Assessment and Plan Assess & Plan/Chief Complaint Acute hypercapnic respiratory failure Community acquired pneumonia COPD with acute exacerbation Chronic diastolic heart failure Continue BiPAP prn pulmonology consulted, appreciate recommendations Continue antibiotics for pneumonia Continue steroids for COPD exacerbation- switch to oral KAIN on CKD Hypernatremia Resolved- creatinine stable Essential hypertension Resume home metoprolol, stop IV - Nitro paste prn Generalized anxiety disorder - Does not want medications if able - Haldol available prn Morbid obesity Clinically significant, no acute management needs DVT prophylaxis: Lovenox Clinical Quality Measures DVT/VTE Risk/Contraindication: Risk Factor Score Per Nursin RFS Level Per Nursing on Admit: 4+=Very High BRANDIE OTT MD Jun 15, 2019 10:10
[2019-06-15] MEDS: predniSONE 20 MG TAB PO SCH (11:33)
--- NOTE | 2019-06-15 17:50 | NUR ---
Pt transferred to room 411. This RN received report from SHAHRIAR Waite.
[2019-06-15] MEDS: PANTOPRAZOLE 40 MG (PROTONIX) TAB PO SCH (20:29)
[2019-06-16] MEDS: RT-ALBUTEROL/IPRATROPIUM 3 ML (DUONEB) VIAL INH SCH ×6 (01:57→21:03)
[2019-06-16 04:09] VITALS: BP 151/70
[2019-06-16 05:21] LABS: BASOPHILS % (AUTO) 0 % (0-10); EOSINOPHILS % (AUTO) 0 % (0-10); HEMATOCRIT 31 % (35-52); HEMOGLOBIN 9.1 G/DL (11.5-16.0); LYMPHOCYTES # (AUTO) 0.4 X 10^3 (1.0-4.0); LYMPHOCYTES % (AUTO) 5 % (12-44); MEAN CORPUSCULAR HEMOGLOBIN 28 PG (25-34); MEAN CORPUSCULAR HGB CONC 29 G/DL (32-36); MEAN CORPUSCULAR VOLUME 96 FL (80-99); MEAN PLATELET VOLUME 11.4 FL (7.4-10.4); MONOCYTES # (AUTO) 0.4 X 10^3 (0.0-1.0); MONOCYTES % (AUTO) 4 % (0-12); NEUTROPHILS # (AUTO) 7.9 X 10^3 (1.8-7.8); NEUTROPHILS % (AUTO) 91 % (42-75); PLATELET COUNT 111 10^3/uL (130-400); WHITE BLOOD COUNT 8.7 10^3/uL (4.3-11.0)
[2019-06-16 05:40] LABS: CREATININE SERUM 1.45 MG/DL (0.60-1.30); MAGNESIUM 2.2 MG/DL (1.6-2.4); PHOSPHORUS 2.9 MG/DL (2.3-4.7); POTASSIUM 5.2 MMOL/L (3.6-5.0)
[2019-06-16] MEDS: inSUlin ASPART (NovoLOG) 1 UNIT/0.01 ML (CHARGE PER UNIT) SC SCH ×4 (05:43→20:51)
[2019-06-16] MEDS: RT-BUDESONIDE NEBS 0.5 MG/2ML (PULMICORT) AMP INH SCH ×2 (06:27→18:18)
[2019-06-16] MEDS: ENOXAPARIN 40 MG/0.4 ML (LOVENOX) SYR SC SCH (06:28)
[2019-06-16] MEDS: LEVOTHYROXINE 100 MCG (LEVOTHROID) TAB PO SCH (06:28)
[2019-06-16] MEDS: predniSONE 20 MG TAB PO SCH (06:28)
[2019-06-16] MEDS: LEVOTHYROXINE 75 MCG (LEVOTHROID) TABLET PO SCH (06:28)
[2019-06-16] MEDS: CATHETER FLUSH 10 ML SYR IV SCH ×3 (06:28→20:52)
--- NOTE | 2019-06-16 07:59 | Progress Note ---
Subjective Time Seen by a Provider: 07:57 Subjective/Events-last exam Patient had episode of confusion yesterday. Patient on BiPAP this morning when seen in sleeping comfortably. Patient didn't answer my questions. Objective Exam Vital Signs Date Time Temp Pulse Resp B/P (MAP) Pulse Ox O2 Delivery O2 Flow Rate FiO2 06/16/19 06:31 68 33 86 25.00 06/16/19 04:09 36.9 62 19 151/70 (97) 95 NIV Bilevel 12.00 25.00 06/16/19 01:58 92 Vapotherm 25.00 30 06/15/19 23:45 36.5 65 21 124/60 (81) 91 NIV Bilevel 12.00 25.00 06/15/19 23:26 61 26 97 25.00 06/15/19 23:18 61 23 90 25.00 06/15/19 20:45 36.9 81 18 189/74 (112) 92 Vapotherm 25.00 30.00 06/15/19 20:01 Vapotherm 25.00 30 06/15/19 18:49 92 Vapotherm 25.00 30 06/15/19 18:48 92 Vapotherm 25.00 30 06/15/19 18:03 68 19 177/90 (119) 93 Vapotherm 25.00 30.00 06/15/19 15:40 36.0 66 17 167/83 (111) 91 06/15/19 14:40 89 Vapotherm 20.00 30 06/15/19 13:00 67 06/15/19 12:30 35.6 67 18 169/83 (111) 94 Vapotherm 25.00 30.00 06/15/19 10:11 93 Vapotherm 20.00 30 06/15/19 10:10 93 Vapotherm 20.00 30 06/15/19 08:21 35.8 82 20 165/72 (103) 96 Vapotherm 25.00 30.00 06/15/19 08:00 Vapotherm 20.00 30 I & O 06/16/19 06:59 Intake Total 1130 ml Output Total 1025 ml Balance 105 ml Capillary Refill : Less Than 3 Seconds General Appearance: No Apparent Distress, WD/WN HEENT: Normal ENT Inspection Neck: Full Range of Motion Respiratory: No Accessory Muscle Use, No Respiratory Distress, Decreased Breath Sounds Cardiovascular: No Murmur Gastrointestinal: non tender, soft Results Lab Laboratory Tests 06/16/19 04:30 Laboratory Tests 06/15/19 11:32: Glucometer 111H 06/15/19 16:30: Glucometer 170H 06/15/19 21:06: Glucometer 285H 06/16/19 04:30: White Blood Count 8.7, Red Blood Count 3.23L, Hemoglobin 9.1L, Hematocrit 31L, Mean Corpuscular Volume 96, Mean Corpuscular Hemoglobin 28, Mean Corpuscular Hemoglobin Concent 29L, Red Cell Distribution Width 16.0H, Platelet Count 111L, Mean Platelet Volume 11.4H, Neutrophils (%) (Auto) 91H, Lymphocytes (%) (Auto) 5L, Monocytes (%) (Auto) 4, Eosinophils (%) (Auto) 0, Basophils (%) (Auto) 0, Neutrophils # (Auto) 7.9H, Lymphocytes # (Auto) 0.4L, Monocytes # (Auto) 0.4, Eosinophils # (Auto) 0.0, Basophils # (Auto) 0.0, Sodium Level 141, Potassium Level 5.2H, Chloride Level 104, Carbon Dioxide Level 28, Anion Gap 9, Blood Urea Nitrogen 52H, Creatinine 1.45H, Estimat Glomerular Filtration Rate 36, BUN/Creatinine Ratio 36, Glucose Level 145H, Calcium Level 8.0L, Phosphorus Level 2.9, Magnesium Level 2.2 Microbiology 06/06/19 Blood Culture - Final, Complete No growth 06/06/19 Influenza Types A,B Antigen (QUYEN) - Final, Complete Assessment/Plan Assessment/Plan Assess & Plan/Chief Complaint Acute mental status resolved. Acute and chronic respiratory failure. Diastolic congestive heart failure. Ammonia. Acute and chronic renal failure. Anemia. Hypercapnia. . 06/10/19. Acute mental status resolved. Acute and chronic respiratory failure. Diastolic congestive heart failure. Pneumonia. Anemia. Hypercapnia. Patient positive about putting on ventilator. . 06/11/19. Acute mental status change resolved. Acute and chronic respiratory failure pattern. Diastolic congestive heart failure. Pneumonia. Anemia. Hypercapnia. . 06/12/19. Acute mental status change resolved. Acute and chronic respiratory failure. Diastolic congestive heart failure. Pneumonia. Anemia. Hypercapnia. Renal insufficiency. . 11/11/18. Acute mental status change. Acute and chronic respiratory failure. Diastolic congestive heart failure. Pneumonia. Hypercapnia. Renal insufficiency. Patient transferred to cardiac stepdown. . 06/16/19. Confusion yesterday. Acute and chronic respiratory failure. Diastolic congestive heart failure. Pneumonia. Hypercapnia. Renal insufficiency. Patient on medical floor today Clinical Quality Measures DVT/VTE Risk/Contraindication: Risk Factor Score Per Nursin RFS Level Per Nursing on Admit: 4+=Very High AURORA STACK DO Jun 16, 2019 07:59
[2019-06-16 08:00] VITALS: BP 139/90
[2019-06-16] MEDS: SENNOSIDES 8.6 MG (SENOKOT) TAB PO SCH ×2 (08:49→20:52)
[2019-06-16] MEDS: DOCUSATE SODIUM 100 MG (COLACE) CAP PO SCH ×2 (08:49→20:52)
[2019-06-16] MEDS: meTOprolol TARTRATE 25 MG (LOPRESSOR) TABLET PO SCH ×2 (08:49→20:52)
[2019-06-16] MEDS: PANTOPRAZOLE 40 MG (PROTONIX) TAB PO SCH ×2 (08:49→20:52)
[2019-06-16] MEDS: HALOPERIDOL 0.5 MG (HALDOL) TAB PO PRN (09:15)
--- NOTE | 2019-06-16 09:25 | Diagnostic Imaging Report ---
EXAMINATION: Chest radiograph, portable AP view. DATE: 06/16/2019 9:02 AM hours. INDICATION: 68-year-old female, acute renal failure. COMPARISON: June 15, 2019. FINDINGS: Heart size and mediastinal contours are unchanged. There is no identified pneumothorax. There are opacities along the left lateral lung which are increased from comparison exam. There does appear to be potentially a left-sided rib fracture. There are mild streaky opacities in the lung bases which appear increased. IMPRESSION: 1. Opacities along the left lateral lung margin which are increased since comparison exam and could relate to pleural fluid. 2. New streaky opacities in the lung bases which may relate to infiltrate and/or atelectasis. 3. Potential left sided rib fracture of uncertain exact age. Dictated by: Dictated on workstation # [id number]
--- NOTE | 2019-06-16 11:06 | Physical Therapy Daily Note ---
PT Daily Note-Current Subjective Patient agrees to PT. Mental Status Patient Orientation: Normal For Age Attachments: Oxygen (vapotherm), Hines Catheter Transfers SCALE: Activities may be completed with or without assistive devices. 8-Qdtlocnpym-dzrvzre completes the activity by him/herself with no assistance from a helper. 5-Set-up or Clean-up Assistance-helper sets up or cleans up; patient completes activity. Caney assists only prior to or following the activity. 4-Supervision or Touching Assistance-helper provides verbal cues and/or touching/steadying and/or contact guard assistance as patient completes activity. Assistance may be provided throughout the activity or intermittently. 3-Partial/Moderate Assistance-helper does LESS THAN HALF the effort. Caney lifts, holds or supports trunk or limbs, but provides less than half the effort. 2-Substantial/Maximal Assistance-helper does MORE THAN HALF the effort. Caney lifts or holds trunk or limbs and provides more than half the effort. 6-Ywoorpwcf-abdxxk does ALL the effort. Patient does none of the effort to complete the activity. Or, the assistance of 2 or more helpers is required for the patient to complete the activity. If activity was not attempted, code reason: 7-Patient Refused. 9-Not Applicable-not attempted and the patient did not perform the activity before the current illness, exacerbation or injury. 10-Not Attempted due to Environmental Limitations-(lack of equipment, weather restraints, etc.). 88-Not Attempted due to Medical Conditions or Safety Concerns. Roll Left & Right (QC): 3 Sit to Lying (QC): 3 Lying to Sitting/Side of Bed(Q: 3 Sit to Stand (QC): 3 Chair/Igj-qu-Coxbs Xfer(QC): 3 min to mod assist with all mobility and SPT Weight Bearing Right Lower Extremity: Right Weight Bearing/Tolerated Left Lower Extremity: Left Weight Bearing/Tolerated Gait Training Does the Patient Walk?: No and Walking Goal NOT indicated Exercises Seated Therapy Exercises: Ankle pumps, Long arc quads Seated Reps: 12 Assessment Patient tolerates minimal activity and is up in recliner with needs met. Patient appears to have increased anxiety with minimal activity. PT Load Out Worker Goals Load Out Worker Goals PT Load Out Worker Goals Time Frame: Jun 28, 2019 Roll Left & Right (QC): 2 Sit to Lying (QC): 3 Lying-Sitting on Side/Bed(QC): 3 Sit to Stand (QC): 3 Chair/Yct-if-Agvfz Xfer(QC): 3 Does the Patient Walk: No and Walking Goal NOT indicated Does the Pt use WC or Scooter?: Yes Type: Manual Type: Manual PT Plan Treatment/Plan Treatment Plan: Continue Plan of Care Treatment Plan: Bed Mobility, Education, Functional Activity Jose J, Functional Strength, Safety, Therapeutic Exercise, Transfers Treatment Duration: Jun 28, 2019 Frequency: 5 times per week Estimated Hrs Per Day: .25 hour per day Patient and/or Family Agrees t: Yes Time/GCodes Time In: 1021 Time Out: 1031 Total Billed Treatment Time: 10 Total Billed Treatment 1 visit FA 10 min MIGDALIA OSORIO PT Jun 16, 2019 11:06
--- NOTE | 2019-06-16 11:20 | Occupational Ther Daily Note ---
OT Current Status-Daily Note Subjective Pt upright in wheelchair, agreeable to OT tx. ADL-Treatment Therapy Code Descriptions/Definitions Functional [place] Measure: 0=Not Assessed/NA 4=Minimal Assistance 1=Total Assistance 5=Supervision or Setup 2=Maximal Assistance 6=Modified [place] 3=Moderate Assistance 7=Complete IndependenceSCALE: Activities may be completed with or without assistive devices. 7-Ahdyriaenw-gigwfez completes the activity by him/herself with no assistance from a helper. 5-Set-up or Clean-up Assistance-helper sets up or cleans up; patient completes activity. [place] assists only prior to or following the activity. 4-Supervision or Touching Assistance-helper provides verbal cues and/or touching/steadying and/or contact guard assistance as patient completes activity. Assistance may be provided throughout the activity or intermittently. 3-Partial/Moderate Assistance-helper does LESS THAN HALF the effort. [place] lifts, holds or supports trunk or limbs, but provides less than half the effort. 2-Substantial/Maximal Assistance-helper does MORE THAN HALF the effort. [place] lifts or holds trunk or limbs and provides more than half the effort. 6-Msvpjszbj-iuttgr does ALL the effort. Patient does none of the effort to complete the activity. Or, the assistance of 2 or more helpers is required for the patient to complete the activity. If activity was not attempted, code reason: 7-Patient Refused. 9-Not Applicable-not attempted and the patient did not perform the activity before the current illness, exacerbation or injury. 10-Not Attempted due to Environmental Limitations-(lack of equipment, weather restraints, etc.). 88-Not Attempted due to Medical Conditions or Safety Concerns. Other Treatment Pt upright in wheelchair. Declines sponge bath on this date but agreeable to washing her hair with a shower cap. OT placed shower cap on her hair and asked pt to scrub, pt stated "I can't", with encouragement pt was able to complete task with min A from OT for thoroughness. OT educated pt on benefits of therapy and benefits of pt completing the tasks as much as she can by herself in order to increase strength and endurance. Pt then requested for her hair to be washed with a wet washcloth to get off the residue of the shower cap. OT provided pt with the washcloth, she again stated she was unable to do the task, OT completed task with max assist. Pt then able to comb her hair without assist. Post OT session, pt seated upright in wheelchair, call light in reach and all needs met. Education OT Patient Education: Correct positioning, Energy conservation, Modified ADL techniques, Progress toward Goal/Update tx plan, Purpose of tx/functional activities Teaching Recipient: Patient Teaching Methods: Discussion Response to Teaching: Verbalize Understanding, Reinforcement Needed OT Waiter/Waitress Cabin Class Goals [place] Goals Time Frame: Jun 27, 2019 Eating (QC): 6 Oral Hygiene (QC): 6 Toileting Hygiene (QC): 3 Shower/Bathe Self (QC): 3 Upper Body Dressing (QC): 3 Lower Body Dressing (QC): 3 On/Off Footwear (QC): 2 Additional Goals: 1-Demonstrate ADL Tasks, 2-Verbalize Understanding, 3- ImproveStrength/Jose J 1=Demonstrate adherence to instructed precautions during ADL tasks. 2=Patient will verbalize/demonstrate understanding of assistive devices/modifications for ADL. 3=Patient will improve strength/tolerance for activity to enable patient to perform ADL's. OT Education/Plan Problem List/Assessment Assessment: Decreased Activ Tolerance, Decreased UE Strength, Impaired I ADL's, Impaired Self-Care Skills Discharge Recommendations Plan/Recommendations: Continue POC Treatment Plan/Plan of Care Treatment,Training & Education: Yes Patient would benefit from OT for education, treatment and training to promote independence in ADL's, mobility, safety and/or upper extremity function for ADL's. Plan of Care: ADL Retraining, Caregiver Training, Functional Mobility, UE Funct Exercise/Act Treatment Duration: Jun 27, 2019 Frequency: 5 times per week Estimated Hrs Per Day: .25 hour per day Agreement: Yes Rehab Potential: Guarded Time/GCodes Start Time: 10:55 Stop Time: 11:08 Total Time Billed (hr/min): 13 Billed Treatment Time 1, ADL ОЛЬГА [place] OT Jun 16, 2019 11:20
[2019-06-16 12:00] VITALS: BP 168/77
[2019-06-16 16:08] VITALS: BP 160/88
[2019-06-16 19:53] VITALS: BP 175/75
[2019-06-16] MEDS: MELATONIN 3 MG TABLET PO PRN (20:52)
[2019-06-16] MEDS: HALOPERIDOL 5 MG/ML (HALDOL) AMP IM PRN (20:56)
[2019-06-17] VITALS (8 sets, daily range): BP systolic 124–185; BP diastolic 58–95
[2019-06-17] MEDS: RT-ALBUTEROL/IPRATROPIUM 3 ML (DUONEB) VIAL INH SCH ×6 (01:52→21:39)
[2019-06-17] MEDS: CATHETER FLUSH 10 ML SYR IV SCH ×3 (02:55→20:26)
[2019-06-17] MEDS: HALOPERIDOL 5 MG/ML (HALDOL) AMP IM PRN (02:55)
[2019-06-17] MEDS: HALOPERIDOL 0.5 MG (HALDOL) TAB PO PRN ×2 (05:55→14:18)
[2019-06-17] MEDS: ENOXAPARIN 40 MG/0.4 ML (LOVENOX) SYR SC SCH (05:56)
[2019-06-17] MEDS: LEVOTHYROXINE 75 MCG (LEVOTHROID) TABLET PO SCH (05:59)
[2019-06-17] MEDS: LEVOTHYROXINE 100 MCG (LEVOTHROID) TAB PO SCH (05:59)
[2019-06-17] MEDS: predniSONE 20 MG TAB PO SCH (05:59)
[2019-06-17] MEDS: inSUlin ASPART (NovoLOG) 1 UNIT/0.01 ML (CHARGE PER UNIT) SC SCH ×4 (06:12→20:19)
[2019-06-17] MEDS: RT-BUDESONIDE NEBS 0.5 MG/2ML (PULMICORT) AMP INH SCH ×2 (07:29→18:22)
--- NOTE | 2019-06-17 07:52 | Progress Note ---
Subjective Time Seen by a Provider: 07:49 Subjective/Events-last exam Patient on Vapotherm. Patient denies pain on the left side of ribs. X-ray yesterday may have shown no fracture. Right side of rib small amount pain. GFR 36. Patient stable with BiPAP and Vapotherm Objective Exam Vital Signs Date Time Temp Pulse Resp B/P (MAP) Pulse Ox O2 Delivery O2 Flow Rate FiO2 06/17/19 07:35 92 Vapotherm 25.00 40 06/17/19 07:29 55 22 92 30.00 06/17/19 05:28 35.2 54 22 138/74 (95) 95 NIV Bilevel 06/17/19 04:00 35.2 54 22 138/74 (95) 95 NIV Bilevel 06/17/19 01:53 68 33 86 25.00 06/17/19 00:27 36.4 59 18 160/95 (116) 100 NIV Bilevel 06/16/19 21:03 68 33 86 25.00 06/16/19 20:00 NIV Bilevel 06/16/19 19:53 36.5 72 18 175/75 (108) 97 Vapotherm 25.00 30.00 06/16/19 18:19 88 Vapotherm 25.00 30 06/16/19 16:08 36.3 61 20 160/88 (112) 100 NIV Bilevel 06/16/19 14:53 94 Vapotherm 25.00 30 06/16/19 12:00 36.8 59 18 168/77 (107) 96 Vapotherm 25.00 30.00 06/16/19 10:20 90 Vapotherm 25.00 30 06/16/19 08:00 36.8 58 18 139/90 (106) 97 NIV Bilevel 12.00 25.00 06/16/19 08:00 NIV Bilevel I & O 06/17/19 07:00 Intake Total 1200 ml Output Total 1200 ml Balance 0 ml Capillary Refill : Less Than 3 Seconds General Appearance: No Apparent Distress, WD/WN HEENT: Normal ENT Inspection Neck: Normal Inspection, Non Tender Respiratory: No Accessory Muscle Use, No Respiratory Distress, Decreased Breath Sounds Cardiovascular: Regular Rate, Rhythm, No Murmur Gastrointestinal: non tender, soft Results Lab Laboratory Tests 06/16/19 11:18: Glucometer 297H 06/16/19 16:06: Glucometer 172H 06/16/19 20:46: Glucometer 164H 06/17/19 05:53: Glucometer 110 Microbiology 06/06/19 Blood Culture - Final, Complete No growth 06/06/19 Influenza Types A,B Antigen (QUYEN) - Final, Complete Assessment/Plan Assessment/Plan Assess & Plan/Chief Complaint Acute mental status resolved. Acute and chronic respiratory failure. Diastolic congestive heart failure. Ammonia. Acute and chronic renal failure. Anemia. Hypercapnia. . 06/10/19. Acute mental status resolved. Acute and chronic respiratory failure. Diastolic congestive heart failure. Pneumonia. Anemia. Hypercapnia. Patient positive about putting on ventilator. . 06/11/19. Acute mental status change resolved. Acute and chronic respiratory failure pattern. Diastolic congestive heart failure. Pneumonia. Anemia. Hypercapnia. . 06/12/19. Acute mental status change resolved. Acute and chronic respiratory failure. Diastolic congestive heart failure. Pneumonia. Anemia. Hypercapnia. Renal insufficiency. . 11/11/18. Acute mental status change. Acute and chronic respiratory failure. Diastolic congestive heart failure. Pneumonia. Hypercapnia. Renal insufficiency. Patient transferred to cardiac stepdown. . 06/16/19. Confusion yesterday. Acute and chronic respiratory failure. Diastolic congestive heart failure. Pneumonia. Hypercapnia. Renal insufficiency. Patient on medical floor today. . 12 2419 patient not confused this morning. Acute and chronic respiratory failure. Diastolic congestive heart failure. Pneumonia. Hypercapnia. Patient on Vapotherm Clinical Quality Measures DVT/VTE Risk/Contraindication: Risk Factor Score Per Nursin RFS Level Per Nursing on Admit: 4+=Very High AURORA STACK DO Jun 17, 2019 07:52
[2019-06-17] MEDS ORDERED: ARTIFICAL TEARS 0.4 ML UNIT DOSE (REFRESH PLUS) OU PRN (08:00)
[2019-06-17] MEDS: PANTOPRAZOLE 40 MG (PROTONIX) TAB PO SCH ×2 (08:58→20:25)
[2019-06-17] MEDS: DOCUSATE SODIUM 100 MG (COLACE) CAP PO SCH ×2 (08:58→20:25)
[2019-06-17] MEDS: meTOprolol TARTRATE 25 MG (LOPRESSOR) TABLET PO SCH ×2 (08:58→20:25)
[2019-06-17] MEDS: SENNOSIDES 8.6 MG (SENOKOT) TAB PO SCH ×2 (08:58→20:25)
--- NOTE | 2019-06-17 10:35 | Physical Therapy Daily Note ---
PT Daily Note-Current Subjective Pt is in bed and agreeable to bed ex only, unless the therapist is a female. Mental Status Patient Orientation: Person, Place, Time, Situation Transfers SCALE: Activities may be completed with or without assistive devices. 7-Ilmylahqbe-rypalyf completes the activity by him/herself with no assistance from a helper. 5-Set-up or Clean-up Assistance-helper sets up or cleans up; patient completes activity. [place] assists only prior to or following the activity. 4-Supervision or Touching Assistance-helper provides verbal cues and/or touching/steadying and/or contact guard assistance as patient completes activity. Assistance may be provided throughout the activity or intermittently. 3-Partial/Moderate Assistance-helper does LESS THAN HALF the effort. [place] lifts, holds or supports trunk or limbs, but provides less than half the effort. 2-Substantial/Maximal Assistance-helper does MORE THAN HALF the effort. [place] lifts or holds trunk or limbs and provides more than half the effort. 5-Euwzdqomt-xnxpat does ALL the effort. Patient does none of the effort to complete the activity. Or, the assistance of 2 or more helpers is required for the patient to complete the activity. If activity was not attempted, code reason: 7-Patient Refused. 9-Not Applicable-not attempted and the patient did not perform the activity before the current illness, exacerbation or injury. 10-Not Attempted due to Environmental Limitations-(lack of equipment, weather restraints, etc.). 88-Not Attempted due to Medical Conditions or Safety Concerns. Weight Bearing Right Lower Extremity: Right Weight Bearing/Tolerated Left Lower Extremity: Left Weight Bearing/Tolerated Exercises Supine Ex: LE Protocol Supine Reps: 15 Assessment Current Status: Fair Progress Pt would not sit edge of bed or perform a transfer unless the therapist is a female. She requested bed ex only. Pt is able to perform the be ex with min assist. PT Document Preparer Microfilming Goals Fdc Goals PT Document Preparer Microfilming Goals Time Frame: Jun 28, 2019 Roll Left & Right (QC): 2 Sit to Lying (QC): 3 Lying-Sitting on Side/Bed(QC): 3 Sit to Stand (QC): 3 Chair/Epk-se-Qzscn Xfer(QC): 3 Does the Patient Walk: No and Walking Goal NOT indicated Does the Pt use WC or Scooter?: Yes Type: Manual Type: Manual PT Plan Treatment/Plan Treatment Plan: Continue Plan of Care Treatment Plan: Bed Mobility, Education, Functional Activity Jose J, Functional Strength, Safety, Therapeutic Exercise, Transfers Treatment Duration: Jun 28, 2019 Frequency: 5 times per week Estimated Hrs Per Day: .25 hour per day Patient and/or Family Agrees t: Yes Time/GCodes Time In: 0851 Time Out: 09 Total Billed Treatment Time: 15 Total Billed Treatment 1, ex 15 DARRION BOATENG PT Jun 17, 2019 10:35
--- NOTE | 2019-06-17 10:47 | Occupational Ther Daily Note ---
OT Current Status-Daily Note Subjective Pt seen in bed, reclined. Pt agreeable to OT tx session. Pt states no pain, but SOB/ difficulty breathing. Mental Status/Objective Patient Orientation: Normal For Age Attachments: Oxygen ADL-Treatment Therapy Code Descriptions/Definitions Functional [place] Measure: 0=Not Assessed/NA 4=Minimal Assistance 1=Total Assistance 5=Supervision or Setup 2=Maximal Assistance 6=Modified [place] 3=Moderate Assistance 7=Complete IndependenceSCALE: Activities may be completed with or without assistive devices. 4-Pjliznxqbj-ihvkdfp completes the activity by him/herself with no assistance from a helper. 5-Set-up or Clean-up Assistance-helper sets up or cleans up; patient completes activity. [place] assists only prior to or following the activity. 4-Supervision or Touching Assistance-helper provides verbal cues and/or touching/steadying and/or contact guard assistance as patient completes activity. Assistance may be provided throughout the activity or intermittently. 3-Partial/Moderate Assistance-helper does LESS THAN HALF the effort. [place] lifts, holds or supports trunk or limbs, but provides less than half the effort. 2-Substantial/Maximal Assistance-helper does MORE THAN HALF the effort. [place] lifts or holds trunk or limbs and provides more than half the effort. 9-Tksklpryd-wiogqb does ALL the effort. Patient does none of the effort to complete the activity. Or, the assistance of 2 or more helpers is required for the patient to complete the activity. If activity was not attempted, code reason: 7-Patient Refused. 9-Not Applicable-not attempted and the patient did not perform the activity before the current illness, exacerbation or injury. 10-Not Attempted due to Environmental Limitations-(lack of equipment, weather restraints, etc.). 88-Not Attempted due to Medical Conditions or Safety Concerns. Shower/Bathe Self (QC): 7 Upper Body Dressing (QC): 7 Lower Body Dressing (QC): 7 On/Off Footwear: 7 Other Treatment Pt denies OOB activity or ADLs. Pt seen uncovered, legs red (similar temperature to UB), dried skin. Pt states edema decreases with diarrhetics, pt states she has not had diarrhetics since admission. Pt educated over OT role in acute. Pt agreeable to UE AROM/ PROM for full stretch. Pt completes AROM to ~90*, denies >10 reps due to fatigue. Pt completes shoulder flexion, shoulder abduction, and scaption with arm weights. Pt's arms passively ranged to full range, pressure applied to tight pectorals/ RTC mm to increase range. Pt educated over diaphragmatic breathing techniques, able to return-demonstrate with object placed on abdomen for visual cues. Pt completes 5 reps with cues, able to complete 3 without cues. Pt educated over benefits, nods in understanding. Pt left in bed, reclined, call light in reach, all needs met. Education OT Patient Education: Exercise program, Home exercise program, Purpose of tx/functional activities, Other Teaching Recipient: Patient Teaching Methods: Demonstration, Discussion Response to Teaching: Verbalize Understanding, Return Demonstration, Reinforcement Needed OT Welfare Director Goals Shelter Goals Time Frame: Jun 27, 2019 Eating (QC): 6 Oral Hygiene (QC): 6 Toileting Hygiene (QC): 3 Shower/Bathe Self (QC): 3 Upper Body Dressing (QC): 3 Lower Body Dressing (QC): 3 On/Off Footwear (QC): 2 Additional Goals: 1-Demonstrate ADL Tasks, 2-Verbalize Understanding, 3- ImproveStrength/Jose J 1=Demonstrate adherence to instructed precautions during ADL tasks. 2=Patient will verbalize/demonstrate understanding of assistive devices/modifications for ADL. 3=Patient will improve strength/tolerance for activity to enable patient to perform ADL's. OT Education/Plan Problem List/Assessment Assessment: Decreased Activ Tolerance, Decreased UE Strength, Dependent Tr ansfers, Edema, Impaired Bed Mobility, Impaired Coordination, Impaired Funct Balance, Impaired I ADL's, Impaired Self-Care Skills Discharge Recommendations Plan/Recommendations: Continue POC Therapy Discharge Recommendati: 24 Hour Supervision Treatment Plan/Plan of Care Treatment,Training & Education: Yes Patient would benefit from OT for education, treatment and training to promote independence in ADL's, mobility, safety and/or upper extremity function for ADL's. Plan of Care: ADL Retraining, Caregiver Training, Functional Mobility, UE Funct Exercise/Act Treatment Duration: Jun 27, 2019 Frequency: 5 times per week Estimated Hrs Per Day: .25 hour per day Agreement: Yes Rehab Potential: Guarded Time/GCodes Start Time: 10:05 Stop Time: 10:17 Total Time Billed (hr/min): 12 Billed Treatment Time 1, EX (12) VIDAL MCKOY OTR Jun 17, 2019 10:47
[2019-06-17 12:23] LABS: BASOPHILS % (AUTO) 0 % (0-10); EOSINOPHILS # (AUTO) 0.1 10^3/uL (0.0-0.3); EOSINOPHILS % (AUTO) 1 % (0-10); HEMATOCRIT 32 % (35-52); HEMOGLOBIN 9.2 G/DL (11.5-16.0); LYMPHOCYTES # (AUTO) 0.4 X 10^3 (1.0-4.0); LYMPHOCYTES % (AUTO) 4 % (12-44); MEAN CORPUSCULAR HEMOGLOBIN 28 PG (25-34); MEAN CORPUSCULAR HGB CONC 29 G/DL (32-36); MEAN CORPUSCULAR VOLUME 98 FL (80-99); MEAN PLATELET VOLUME 12.3 FL (7.4-10.4); MONOCYTES # (AUTO) 0.3 X 10^3 (0.0-1.0); MONOCYTES % (AUTO) 3 % (0-12); NEUTROPHILS # (AUTO) 9.7 X 10^3 (1.8-7.8); NEUTROPHILS % (AUTO) 93 % (42-75); PLATELET COUNT 102 10^3/uL (130-400); WHITE BLOOD COUNT 10.4 10^3/uL (4.3-11.0)
[2019-06-17 12:42] LABS: CREATININE SERUM 1.31 MG/DL (0.60-1.30); MAGNESIUM 2.3 MG/DL (1.6-2.4); PHOSPHORUS 3.2 MG/DL (2.3-4.7); POTASSIUM 5.5 MMOL/L (3.6-5.0)
[2019-06-17] MEDS: MELATONIN 3 MG TABLET PO PRN (20:25)
[2019-06-18] VITALS (7 sets, daily range): BP systolic 118–170; BP diastolic 68–78
[2019-06-18] MEDS: RT-ALBUTEROL/IPRATROPIUM 3 ML (DUONEB) VIAL INH SCH ×6 (01:36→22:06)
[2019-06-18] MEDS: HALOPERIDOL 0.5 MG (HALDOL) TAB PO PRN ×3 (01:53→20:37)
[2019-06-18] MEDS: inSUlin ASPART (NovoLOG) 1 UNIT/0.01 ML (CHARGE PER UNIT) SC SCH ×4 (05:38→20:44)
[2019-06-18] MEDS: CATHETER FLUSH 10 ML SYR IV SCH ×3 (06:03→20:37)
[2019-06-18] MEDS: LEVOTHYROXINE 100 MCG (LEVOTHROID) TAB PO SCH (06:03)
[2019-06-18] MEDS: ENOXAPARIN 40 MG/0.4 ML (LOVENOX) SYR SC SCH (06:03)
[2019-06-18] MEDS: LEVOTHYROXINE 75 MCG (LEVOTHROID) TABLET PO SCH (06:03)
[2019-06-18] MEDS: predniSONE 20 MG TAB PO SCH (06:03)
[2019-06-18] MEDS: RT-BUDESONIDE NEBS 0.5 MG/2ML (PULMICORT) AMP INH SCH ×2 (06:39→19:15)
--- NOTE | 2019-06-18 07:27 | Diagnostic Imaging Report ---
Indication: Dyspnea. Comparison: 06/16/2019. Discussion: Single portable upright view of the chest was obtained. Cardiomegaly is stable. No alan failure. No focal consolidation or pneumothorax. Pleural thickening along the left is stable. Age-indeterminate left rib fractures are stable. Impression: 1. Stable cardiomegaly. Dictated by: Dictated on workstation # [id number]
[2019-06-18] MEDS: SENNOSIDES 8.6 MG (SENOKOT) TAB PO SCH ×2 (08:24→20:36)
[2019-06-18] MEDS: meTOprolol TARTRATE 25 MG (LOPRESSOR) TABLET PO SCH ×2 (08:24→20:36)
[2019-06-18] MEDS: PANTOPRAZOLE 40 MG (PROTONIX) TAB PO SCH ×2 (08:24→20:36)
[2019-06-18] MEDS: DOCUSATE SODIUM 100 MG (COLACE) CAP PO SCH ×2 (08:24→20:36)
--- NOTE | 2019-06-18 13:14 | Progress Note - Hospitalist ---
Subjective HPI/CC On Admission Date Seen by Provider: Jun 18, 2019 Time Seen by Provider: 09:30 Jennifer Woodall is a 68-year-old female with past medical history of hypertension, COPD, CKD, heart failure with preserved ejection fraction, morbid obesity, who presented with altered mental status. I was called to evaluate her on the floor after arrival. She was wearing her BiPAP but was fidgeting and attempting to remove it. I spoke with her and recommended that she keep it on and she was redirectable.she was unable to provide any other meaningful history. There are no family members at the bedside at that time. The workup in the emergency room revealed that she had a an acute hypercapnic respiratory failure, as well as an acute kidney injury, and pneumonia. Subjective/Events-last exam Patient doing about the same Bowels are moving Changed her diet so she could swallow easier Vapotherm maintained Asked for Haldol for her "nerves." Pain meds given this am Lungs are coarse Checked meds and labs Review of Systems General: Fatigue Pulmonary: Dyspnea, Cough Objective Exam Vital Signs Vital Signs Date Time Temp Pulse Resp B/P (MAP) Pulse Ox O2 Delivery O2 Flow Rate FiO2 06/18/19 14:27 92 Vapotherm 25.00 35 06/18/19 11:19 36.5 65 20 170/73 (105) Capillary Refill : Less Than 3 SecondsLess Than 3 Seconds General Appearance: WD/WN, Chronically ill, Mild Distress, Obese Respiratory: No Respiratory Distress, Accessory Muscle Use (mild), Crackles, Decreased Breath Sounds Neurologic/Psychiatric: Alert, Oriented x3, No Motor/Sensory Deficits, Normal Mood/Affect Results/Procedures Lab Patient resulted labs reviewed. Imaging: Reviewed Imaging Report Assessment/Plan Assessment and Plan Assess & Plan/Chief Complaint Assessment: Acute on chronic respiratory failure s/p PNA DONATO Anxiety Chronic pain Chronic debility Vapotherm dependent Plan: Psych meds Pain meds Vapotherm Monitor closely Diagnosis/Problems Diagnosis/Problems (1) Acute on chronic respiratory failure Status: Acute (2) Altered mental status Status: Acute Qualifiers: Altered mental status type: unspecified Qualified Codes: R41.82 - Altered mental status, unspecified (3) Chronic renal insufficiency Status: Acute (4) Hypercapnic respiratory failure Status: Acute Qualifiers: Chronicity: acute Qualified Codes: J96.02 - Acute respiratory failure with hypercapnia (5) Pneumonia Status: Acute (6) Chronic anemia Status: Acute (7) Acute renal failure (ARF) Status: Acute Qualifiers: Acute renal failure type: unspecified Qualified Codes: N17.9 - Acute kidne y failure, unspecified Clinical Quality Measures DVT/VTE Risk/Contraindication: Risk Factor Score Per Nursin RFS Level Per Nursing on Admit: 4+=Very High GERMANIA QUARLES DO Jun 18, 2019 13:14
[2019-06-18] MEDS: MELATONIN 3 MG TABLET PO PRN (20:37)
[2019-06-18] MEDS: NYSTATIN OINTMENT 30 GM TUBE TOP SCH (20:37)
[2019-06-19] MEDS: RT-ALBUTEROL/IPRATROPIUM 3 ML (DUONEB) VIAL INH SCH ×6 (01:39→21:17)
[2019-06-19] MEDS: HALOPERIDOL 0.5 MG (HALDOL) TAB PO PRN (02:28)
[2019-06-19 03:04] VITALS: BP 131/73
[2019-06-19 05:54] LABS: BASOPHILS % (AUTO) 0 % (0-10); EOSINOPHILS # (AUTO) 0.1 10^3/uL (0.0-0.3); EOSINOPHILS % (AUTO) 1 % (0-10); HEMATOCRIT 32 % (35-52); HEMOGLOBIN 9.1 G/DL (11.5-16.0); LYMPHOCYTES # (AUTO) 0.8 X 10^3 (1.0-4.0); LYMPHOCYTES % (AUTO) 7 % (12-44); MEAN CORPUSCULAR HEMOGLOBIN 28 PG (25-34); MEAN CORPUSCULAR HGB CONC 28 G/DL (32-36); MEAN CORPUSCULAR VOLUME 100 FL (80-99); MONOCYTES # (AUTO) 0.6 X 10^3 (0.0-1.0); MONOCYTES % (AUTO) 6 % (0-12); NEUTROPHILS # (AUTO) 8.9 X 10^3 (1.8-7.8); NEUTROPHILS % (AUTO) 86 % (42-75); PLATELET COUNT 115 10^3/uL (130-400); RED CELL DISTRIBUTION WIDTH 16.3 % (10.0-14.5); WHITE BLOOD COUNT 10.4 10^3/uL (4.3-11.0)
[2019-06-19] MEDS: predniSONE 20 MG TAB PO SCH (06:04)
[2019-06-19] MEDS: LEVOTHYROXINE 100 MCG (LEVOTHROID) TAB PO SCH (06:04)
[2019-06-19] MEDS: inSUlin ASPART (NovoLOG) 1 UNIT/0.01 ML (CHARGE PER UNIT) SC SCH ×4 (06:04→21:27)
[2019-06-19] MEDS: LEVOTHYROXINE 75 MCG (LEVOTHROID) TABLET PO SCH (06:04)
[2019-06-19] MEDS: ENOXAPARIN 40 MG/0.4 ML (LOVENOX) SYR SC SCH (06:04)
[2019-06-19] MEDS: CATHETER FLUSH 10 ML SYR IV SCH ×3 (06:04→21:30)
[2019-06-19 06:16] LABS: ALBUMIN 3.2 GM/DL (3.2-4.5); BILIRUBIN,TOTAL 0.3 MG/DL (0.1-1.0); CALCIUM 8.1 MG/DL (8.5-10.1); CREATININE SERUM 1.52 MG/DL (0.60-1.30); POTASSIUM 5.3 MMOL/L (3.6-5.0); TOTAL PROTEIN 5.5 GM/DL (6.4-8.2)
[2019-06-19] MEDS: RT-BUDESONIDE NEBS 0.5 MG/2ML (PULMICORT) AMP INH SCH ×2 (06:44→18:08)
[2019-06-19 07:54] VITALS: BP 163/88
--- NOTE | 2019-06-19 08:32 | Occupational Ther Daily Note ---
OT Current Status-Daily Note Subjective Pt laying in bed with HOB elevated at start of session, agreeable to OT tx stating she needs to go to the bathroom. She did not sleep well last night being unable to find a comfortable position. Mental Status/Objective Attachments: Oxygen (vapotherm) ADL-Treatment Therapy Code Descriptions/Definitions Functional [place] Measure: 0=Not Assessed/NA 4=Minimal Assistance 1=Total Assistance 5=Supervision or Setup 2=Maximal Assistance 6=Modified [place] 3=Moderate Assistance 7=Complete IndependenceSCALE: Activities may be completed with or without assistive devices. 1-Iiihhhjdju-ihkgzrz completes the activity by him/herself with no assistance from a helper. 5-Set-up or Clean-up Assistance-helper sets up or cleans up; patient completes activity. [place] assists only prior to or following the activity. 4-Supervision or Touching Assistance-helper provides verbal cues and/or touching/steadying and/or contact guard assistance as patient completes activity. Assistance may be provided throughout the activity or intermittently. 3-Partial/Moderate Assistance-helper does LESS THAN HALF the effort. [place] lifts, holds or supports trunk or limbs, but provides less than half the effort. 2-Substantial/Maximal Assistance-helper does MORE THAN HALF the effort. [place] lifts or holds trunk or limbs and provides more than half the effort. 4-Leftjmoxc-bqfwju does ALL the effort. Patient does none of the effort to complete the activity. Or, the assistance of 2 or more helpers is required for the patient to complete the activity. If activity was not attempted, code reason: 7-Patient Refused. 9-Not Applicable-not attempted and the patient did not perform the activity before the current illness, exacerbation or injury. 10-Not Attempted due to Environmental Limitations-(lack of equipment, weather restraints, etc.). 88-Not Attempted due to Medical Conditions or Safety Concerns. On/Off Footwear: 1 (Pt unable to don/doff BLE socks before transfer to BSC. Pt required total assistance with task.) Toilet Transfer (QC): 1 (Assist x2 required to transfer to BSC beside bed.) Other Treatment Pt laying in bed with HOB elevated, required assist x2 to transfer supine to sit with assist with BLEs and with upper body. Pt able to stand with mod assist x2 and then pivoted to BSC. Pt stated it may be awhile until she is ready to transfer back into bed. certified medication aide and OT educated pt on pushing the call light when she is done. Post OT session, pt seated on BSC, call light in reach and all needs met. Education OT Patient Education: Correct positioning, Energy conservation, Modified ADL techniques, Progress toward Goal/Update tx plan, Purpose of tx/functional activities, Transfer techniques Teaching Recipient: Patient Teaching Methods: Discussion Response to Teaching: Verbalize Understanding OT Longterm Goals Vp Outcomes Goals Time Frame: Jun 27, 2019 Eating (QC): 6 Oral Hygiene (QC): 6 Toileting Hygiene (QC): 3 Shower/Bathe Self (QC): 3 Upper Body Dressing (QC): 3 Lower Body Dressing (QC): 3 On/Off Footwear (QC): 2 Additional Goals: 1-Demonstrate ADL Tasks, 2-Verbalize Understanding, 3- ImproveStrength/Jose J 1=Demonstrate adherence to instructed precautions during ADL tasks. 2=Patient will verbalize/demonstrate understanding of assistive devices/modifications for ADL. 3=Patient will improve strength/tolerance for activity to enable patient to perform ADL's. OT Education/Plan Problem List/Assessment Assessment: Decreased Activ Tolerance, Decreased UE Strength, Dependent Transfers, Impaired Bed Mobility, Impaired Funct Balance, Impaired I ADL's, Impaired Self-Care Skills Discharge Recommendations Plan/Recommendations: Continue POC Treatment Plan/Plan of Care Treatment,Training & Education: Yes Patient would benefit from OT for education, treatment and training to promote independence in ADL's, mobility, safety and/or upper extremity function for ADL's. Plan of Care: ADL Retraining, Caregiver Training, Functional Mobility, UE Funct Exercise/Act Treatment Duration: Jun 27, 2019 Frequency: 5 times per week Estimated Hrs Per Day: .25 hour per day Agreement: Yes Rehab Potential: Guarded Time/GCodes Start Time: 08:10 Stop Time: 08:24 Total Time Billed (hr/min): 14 Billed Treatment Time 1, ADL ОЛЬГА [place] OT Jun 19, 2019 08:32
--- NOTE | 2019-06-19 08:32 | Progress Note ---
Subjective Time Seen by a Provider: 08:26 Subjective/Events-last exam Patient complaining of some shortness of breath. Patient on Vapotherm Objective Exam Vital Signs Date Time Temp Pulse Resp B/P (MAP) Pulse Ox O2 Delivery O2 Flow Rate FiO2 06/19/19 07:54 36.4 84 20 163/88 (113) 93 Vapotherm 25.00 30.00 06/19/19 06:50 94 Vapotherm 25.00 30 06/19/19 06:45 94 Vapotherm 25.00 30 06/19/19 03:04 36.6 69 18 131/73 (92) 95 Vapotherm 25.00 30.00 06/19/19 01:39 93 Vapotherm 25.00 30 06/19/19 00:06 74 95 30.00 06/18/19 23:35 36.6 73 20 132/71 (91) 97 Vapotherm 25.00 35.00 06/18/19 22:06 93 Vapotherm 25.00 35 06/18/19 20:30 Vapotherm 25.00 35 06/18/19 19:30 36.3 87 18 151/68 (95) 97 Vapotherm 25.00 35.00 06/18/19 19:13 90 Vapotherm 25.00 35 06/18/19 16:14 36.6 79 20 136/70 (92) 97 Vapotherm 25.00 35.00 06/18/19 14:27 92 Vapotherm 25.00 35 06/18/19 11:19 36.5 65 20 170/73 (105) 94 Vapotherm 25.00 35.00 06/18/19 09:53 93 Vapotherm 25.00 35 I & O 06/19/19 07:00 Intake Total 1317 ml Output Total 1275 ml Balance 42 ml Capillary Refill : Less Than 3 SecondsLess Than 3 Seconds General Appearance: No Apparent Distress, WD/WN HEENT: Normal ENT Inspection Neck: Full Range of Motion Respiratory: No Accessory Muscle Use, No Respiratory Distress, Decreased Breath Sounds Cardiovascular: Regular Rate, Rhythm, No Murmur Gastrointestinal: non tender, soft Results Lab Laboratory Tests 06/19/19 04:54 Laboratory Tests 06/19/19 04:54 Laboratory Tests 06/18/19 10:35: Glucometer 218H 06/18/19 16:20: Glucometer 215H 06/18/19 20:43: Glucometer 160H 06/19/19 04:54: White Blood Count 10.4, Red Blood Count 3.23L, Hemoglobin 9.1L, Hematocrit 32L, Mean Corpuscular Volume 100H, Mean Corpuscular Hemoglobin 28, Mean Corpuscular Hemoglobin Concent 28L, Red Cell Distribution Width 16.3H, Platelet Count 115L, Mean Platelet Volume 12.0H, Neutrophils (%) (Auto) 86H, Lymphocytes (%) (Auto) 7L, Monocytes (%) (Auto) 6, Eosinophils (%) (Auto) 1, Basophils (%) (Auto) 0, Neutrophils # (Auto) 8.9H, Lymphocytes # (Auto) 0.8L, Monocytes # (Auto) 0.6, Eosinophils # (Auto) 0.1, Basophils # (Auto) 0.0, Sodium Level 141, Potassium Level 5.3H, Chloride Level 105, Carbon Dioxide Level 28, Anion Gap 8, Blood Urea Nitrogen 45H, Creatinine 1.52H, Estimat Glomerular Filtration Rate 34, BUN/Creatinine Ratio 30, Glucose Level 127H, Calcium Level 8.1L, Corrected Calcium 8.7, Total Bilirubin 0.3, Aspartate Amino Transf (AST/SGOT) 11, Alanine Aminotransferase (ALT/SGPT) 14, Alkaline Phosphatase 68, Total Protein 5.5L, Albumin 3.2 06/19/19 05:09: Glucometer 121H Microbiology 06/06/19 Blood Culture - Final, Complete No growth 06/06/19 Influenza Types A,B Antigen (QUYEN) - Final, Complete Assessment/Plan Assessment/Plan Assess & Plan/Chief Complaint Acute mental status resolved. Acute and chronic respiratory failure. Diastolic congestive heart failure. Ammonia. Acute and chronic renal failure. Anemia. Hypercapnia. . 06/10/19. Acute mental status resolved. Acute and chronic respiratory failure. Diastolic congestive heart failure. Pneumonia. Anemia. Hypercapnia. Patient positive about putting on ventilator. . 06/11/19. Acute mental status change resolved. Acute and chronic respiratory failure pattern. Diastolic congestive heart failure. Pneumonia. Anemia. Hypercapnia. . 06/12/19. Acute mental status change resolved. Acute and chronic respiratory failure. Diastolic congestive heart failure. Pneumonia. Anemia. Hypercapnia. Renal insufficiency. . 11/11/18. Acute mental status change. Acute and chronic respiratory failure. Diastolic congestive heart failure. Pneumonia. Hypercapnia. Renal insufficiency. Patient transferred to cardiac stepdown. . 06/16/19. Confusion yesterday. Acute and chronic respiratory failure. Diastolic congestive heart failure. Pneumonia. Hypercapnia. Renal insufficiency. Patient on medical floor today. . [id number] patient not confused this morning. Acute and chronic respiratory failure. Diastolic congestive heart failure. Pneumonia. Hypercapnia. Patient on Vapotherm. . 06/19/19. Acute and chronic respiratory failure. Diastolic congestive heart failure. Hypercapnia history. Trying to wean patient off Vapotherm slowly Clinical Quality Measures DVT/VTE Risk/Contraindication: Risk Factor Score Per Nursin RFS Level Per Nursing on Admit: 4+=Very High AURORA STACK DO Jun 19, 2019 08:32
--- NOTE | 2019-06-19 09:06 | Diagnostic Imaging Report ---
INDICATION: CHF and shortness of air. TIME OF EXAM: 8:52 AM Correlation is made with prior chest from one day earlier. FINDINGS: The heart remains enlarged. There is central congestion without overt failure. No parenchymal consolidation is seen. Left basilar pleural thickening is stable. No significant effusion or pneumothorax is seen. IMPRESSION: Stable chest since exam one day earlier. Dictated by: Dictated on workstation # [id number]
[2019-06-19] MEDS: NYSTATIN OINTMENT 30 GM TUBE TOP SCH ×2 (09:24→21:30)
[2019-06-19] MEDS: PANTOPRAZOLE 40 MG (PROTONIX) TAB PO SCH ×2 (09:24→21:30)
[2019-06-19] MEDS: SENNOSIDES 8.6 MG (SENOKOT) TAB PO SCH ×2 (09:24→21:30)
[2019-06-19] MEDS: DOCUSATE SODIUM 100 MG (COLACE) CAP PO SCH ×2 (09:24→21:30)
[2019-06-19] MEDS: meTOprolol TARTRATE 25 MG (LOPRESSOR) TABLET PO SCH ×2 (09:24→21:30)
--- NOTE | 2019-06-19 09:38 | NUR ---
PALLIATIVE CARE RN in to see patient. SHe has had a lengthy hospital stay of 13 days. She is currently on Vapotherm and does report some SOB. I discussed with the patient discharge option, of which there are 3. We discusses signing on with hospice..this was shot down immediately without benefit of discussion on how it could be beneficial to her. She states that they "will kill me". We discussed the possibility of moving to a [facility] and having more time to transition off of the Vapotherm. We also discussed having a trial off of Vapotherm on a NC. She would rather this option due to not wanting to lose her room at [facility]. However she reports that she has chest congestion and is still SB worse with activity...which is not new to him. Spoke with RT about transitioning off of Vapotherm.
--- NOTE | 2019-06-19 10:07 | NUR ---
RT REPORTS OFF VAPOTHERM AND ON 5L N/C.
--- NOTE | 2019-06-19 11:09 | Physical Therapy Daily Note ---
PT Daily Note-Current Subjective Pt agrees to chair exercises. Reports she does not want to try to do any walking right now. Mental Status Patient Orientation: Person, Place, Time, Situation Transfers SCALE: Activities may be completed with or without assistive devices. 1-Jcvsvbowbf-ugrbncc completes the activity by him/herself with no assistance from a helper. 5-Set-up or Clean-up Assistance-helper sets up or cleans up; patient completes activity. [place] assists only prior to or following the activity. 4-Supervision or Touching Assistance-helper provides verbal cues and/or touching/steadying and/or contact guard assistance as patient completes activit y. Assistance may be provided throughout the activity or intermittently. 3-Partial/Moderate Assistance-helper does LESS THAN HALF the effort. [place] lifts, holds or supports trunk or limbs, but provides less than half the effort. 2-Substantial/Maximal Assistance-helper does MORE THAN HALF the effort. [place] lifts or holds trunk or limbs and provides more than half the effort. 9-Ypllomfnq-eiolao does ALL the effort. Patient does none of the effort to complete the activity. Or, the assistance of 2 or more helpers is required for the patient to complete the activity. If activity was not attempted, code reason: 7-Patient Refused. 9-Not Applicable-not attempted and the patient did not perform the activity before the current illness, exacerbation or injury. 10-Not Attempted due to Environmental Limitations-(lack of equipment, weather restraints, etc.). 88-Not Attempted due to Medical Conditions or Safety Concerns. Weight Bearing Right Lower Extremity: Right Weight Bearing/Tolerated Left Lower Extremity: Left Weight Bearing/Tolerated Exercises Seated Therapy Exercises: Ankle pumps, Long arc quads, Hip flexion, Hamstring Curls, Hip abd/add, Glut set Seated Reps: 12 (LE strengthening to progress transfer ability.) Assessment Tolerated exercises well. Pt already up in the chair. PT [facility]archmaker Goals [facility] Goals PT Starchmaker Goals Time Frame: Jun 28, 2019 Roll Left & Right (QC): 2 Sit to Lying (QC): 3 Lying-Sitting on Side/Bed(QC): 3 Sit to Stand (QC): 3 Chair/Yyy-ob-Iupni Xfer(QC): 3 Does the Patient Walk: No and Walking Goal NOT indicated Does the Pt use WC or Scooter?: Yes Type: Manual Type: Manual PT Plan Problem List Problem List: Activity Tolerance, Functional Strength, Safety, Balance, Gait, Transfer, Bed Mobility Treatment/Plan Treatment Plan: Continue Plan of Care Treatment Plan: Bed Mobility, Education, Functional Activity Jose J, Functional Strength, Safety, Therapeutic Exercise, Transfers Treatment Duration: Jun 28, 2019 Frequency: 5 times per week Estimated Hrs Per Day: .25 hour per day Patient and/or Family Agrees t: Yes Safety Risks/Education Patient Education: Safety Issues Teaching Recipient: Patient Teaching Methods: Discussion Response to Teaching: Reinforcement Needed Time/GCodes Time In: 1025 Time Out: 1035 Total Billed Treatment Time: 10 Total Billed Treatment visit EX 10 RAMOS BOYKIN PT Jun 19, 2019 11:09
--- NOTE | 2019-06-19 11:38 | NUR ---
PALLIATIVE CARE RN was asked to come back to the room by the patient to discuss further the hospice benefit. Very long discussion with patient regarding the hospice benefit and the differences in this and the SKILLED care. SHe reports having been at [facility] for 3 years on and off SKILLED. She has a trust fund that she reports keeps her from qualifying for MEDICAID but this may be close to being depleted. Patient was all over the place in her thinking....going from wanting to go "home , which she needs to buy the house, gut it and then rebuild to her specks" and then hire people to live with her or help her in the morning and he evening...Anticipate she will return to her [facility] placement SKILLED initially and then maybe bring hospice on board after that.
[2019-06-19 11:52] VITALS: BP 170/65
--- NOTE | 2019-06-19 15:16 | NUR ---
RT REPORTS NOW ON 3L N/C.
[2019-06-19 16:00] VITALS: BP 152/73
[2019-06-19 19:55] VITALS: BP 150/80
[2019-06-19 23:52] VITALS: BP 134/79
[2019-06-20] MEDS: RT-ALBUTEROL/IPRATROPIUM 3 ML (DUONEB) VIAL INH SCH ×3 (01:56→10:33)
[2019-06-20 03:43] VITALS: BP 118/56
[2019-06-20] MEDS: inSUlin ASPART (NovoLOG) 1 UNIT/0.01 ML (CHARGE PER UNIT) SC SCH ×3 (05:20→11:44)
[2019-06-20 05:42] LABS: BASOPHILS % (AUTO) 0 % (0-10); EOSINOPHILS # (AUTO) 0.1 10^3/uL (0.0-0.3); EOSINOPHILS % (AUTO) 1 % (0-10); HEMATOCRIT 31 % (35-52); HEMOGLOBIN 8.7 G/DL (11.5-16.0); LYMPHOCYTES # (AUTO) 0.7 X 10^3 (1.0-4.0); LYMPHOCYTES % (AUTO) 9 % (12-44); MEAN CORPUSCULAR HEMOGLOBIN 28 PG (25-34); MEAN CORPUSCULAR HGB CONC 28 G/DL (32-36); MEAN CORPUSCULAR VOLUME 101 FL (80-99); MONOCYTES # (AUTO) 0.5 X 10^3 (0.0-1.0); MONOCYTES % (AUTO) 6 % (0-12); NEUTROPHILS # (AUTO) 6.7 X 10^3 (1.8-7.8); NEUTROPHILS % (AUTO) 84 % (42-75); PLATELET COUNT 100 10^3/uL (130-400); RED CELL DISTRIBUTION WIDTH 16.4 % (10.0-14.5)
[2019-06-20] MEDS: LEVOTHYROXINE 100 MCG (LEVOTHROID) TAB PO SCH (05:54)
[2019-06-20] MEDS: LEVOTHYROXINE 75 MCG (LEVOTHROID) TABLET PO SCH (05:54)
[2019-06-20] MEDS: CATHETER FLUSH 10 ML SYR IV SCH (05:55)
[2019-06-20] MEDS: predniSONE 20 MG TAB PO SCH (05:55)
[2019-06-20] MEDS: ENOXAPARIN 40 MG/0.4 ML (LOVENOX) SYR SC SCH (05:55)
[2019-06-20 06:14] LABS: CALCIUM 7.9 MG/DL (8.5-10.1); CREATININE SERUM 1.37 MG/DL (0.60-1.30); POTASSIUM 5.4 MMOL/L (3.6-5.0)
[2019-06-20] MEDS: RT-BUDESONIDE NEBS 0.5 MG/2ML (PULMICORT) AMP INH SCH (07:02)
--- NOTE | 2019-06-20 07:42 | Diagnostic Imaging Report ---
INDICATION: Congestive heart failure. Comparison made with prior examination from 06/19/2019. FINDINGS: There are bibasal infiltrates left greater than right. There is a left pleural effusion. There is cardiomegaly. There is no pneumothorax. Mediastinum is unremarkable. IMPRESSION: Bibasilar pulmonary infiltrates and left pleural effusion. Cardiomegaly. Dictated by: Dictated on workstation # [id number]
[2019-06-20 07:53] VITALS: BP 159/70
--- NOTE | 2019-06-20 08:26 | Progress Note ---
Subjective Time Seen by a Provider: 08:22 Subjective/Events-last exam Patient on nasal oxygen at 3 L. Patient appears stable and at her normal. Patient to be discharged today or Patient be followed up in the office on Sunday Objective Exam Vital Signs Date Time Temp Pulse Resp B/P (MAP) Pulse Ox O2 Delivery O2 Flow Rate FiO2 06/20/19 07:53 36.6 72 20 159/70 (99) 94 High Flow N/C 3.00 06/20/19 07:07 96 06/20/19 07:01 98 Nasal Cannula 3.00 06/20/19 03:43 36.0 56 18 118/56 (76) 100 High Flow N/C 3.00 06/20/19 01:56 96 High Flow N/C 3.00 06/19/19 23:52 36.4 73 20 134/79 (97) 99 High Flow N/C 3.00 06/19/19 21:30 Nasal Cannula 3.00 06/19/19 21:17 96 High Flow N/C 3.00 06/19/19 19:55 36.6 71 20 150/80 (103) 99 High Flow N/C 3.00 06/19/19 18:11 96 High Flow N/C 3.00 06/19/19 16:00 36.4 68 20 152/73 (99) 98 Nasal Cannula 3.00 06/19/19 15:08 98 High Flow N/C 5.00 06/19/19 11:52 36.6 69 20 170/65 (100) 100 High Flow N/C 5.00 06/19/19 10:00 95 High Flow N/C 5.00 I & O 06/20/19 07:00 Intake Total 955 ml Output Total 1025 ml Balance -70 ml Capillary Refill : Less Than 3 SecondsLess Than 3 Seconds General Appearance: No Apparent Distress, WD/WN HEENT: Normal ENT Inspection Neck: Full Range of Motion, Normal Inspection Respiratory: No Accessory Muscle Use, No Respiratory Distress, Decreased Breath Sounds Cardiovascular: Regular Rate, Rhythm, No Murmur Gastrointestinal: non tender, soft Results Lab Laboratory Tests 06/20/19 04:41 Laboratory Tests 06/19/19 11:31: Glucometer 237H 06/19/19 16:19: Glucometer 193H 06/19/19 20:35: Glucometer 124H 06/20/19 04:41: White Blood Count 8.0, Red Blood Count 3.09L, Hemoglobin 8.7L, Hematocrit 31L, Mean Corpuscular Volume 101H, Mean Corpuscular Hemoglobin 28, Mean Corpuscular Hemoglobin Concent 28L, Red Cell Distribution Width 16.4H, Platelet Count 100L, Mean Platelet Volume 12.0H, Neutrophils (%) (Auto) 84H, Lymphocytes (%) (Auto) 9L, Monocytes (%) (Auto) 6, Eosinophils (%) (Auto) 1, Basophils (%) (Auto) 0, Neutrophils # (Auto) 6.7, Lymphocytes # (Auto) 0.7L, Monocytes # (Auto) 0.5, Eosinophils # (Auto) 0.1, Basophils # (Auto) 0.0, Sodium Level 141, Potassium Level 5.4H, Chloride Level 105, Carbon Dioxide Level 27, Anion Gap 9, Blood Urea Nitrogen 41H, Creatinine 1.37H, Estimat Glomerular Filtration Rate 38, BUN/Creatinine Ratio 30, Glucose Level 108H, Calcium Level 7.9L 06/20/19 05:09: Glucometer 105 Microbiology 06/06/19 Blood Culture - Final, Complete No growth 06/06/19 Influenza Types A,B Antigen (QUYEN) - Final, Complete Assessment/Plan Assessment/Plan Assess & Plan/Chief Complaint Acute mental status resolved. Acute and chronic respiratory failure. Diastolic congestive heart failure. Ammonia. Acute and chronic renal failure. Anemia. Hypercapnia. . 06/10/19. Acute mental status resolved. Acute and chronic respiratory failure. Diastolic congestive heart failure. Pneumonia. Anemia. Hypercapnia. Patient positive about putting on ventilator. . 06/11/19. Acute mental status change resolved. Acute and chronic respiratory failure pattern. Diastolic congestive heart failure. Pneumonia. Anemia. Hypercapnia. . 06/12/19. Acute mental status change resolved. Acute and chronic respiratory failure. Diastolic congestive heart failure. Pneumonia. Anemia. Hypercapnia. Renal insufficiency. . 11/11/18. Acute mental status change. Acute and chronic respiratory failure. Diastolic congestive heart failure. Pneumonia. Hypercapnia. Renal insufficiency. Patient transferred to cardiac stepdown. . 06/16/19. Confusion yesterday. Acute and chronic respiratory failure. Diastolic congestive heart failure. Pneumonia. Hypercapnia. Renal insufficiency. Patient on medical floor today. . 1282 patient not confused this morning. Acute and chronic respiratory failure. Diastolic congestive heart failure. Pneumonia. Hypercapnia. Patient on Vapotherm. . 06/19/19. Acute and chronic respiratory failure. Diastolic congestive heart failure. Hypercapnia history. Trying to wean patient off Vapotherm slowly. . 06/20/19. Acute and chronic respiratory failure. Diastolic congestive heart failure. Hypercapnia. Pneumonia. Patient on nasal oxygen 3 L. Patient feeling good Patient being discharged today on Omnicef. Patient to be followed up in office on Sunday afternoon Clinical Quality Measures DVT/VTE Risk/Contraindication: Risk Factor Score Per Nursin RFS Level Per Nursing on Admit: 4+=Very High AURORA STACK DO Jun 20, 2019 08:26
[2019-06-20] MEDS ORDERED: CEFD300C3 PO (08:30)
--- NOTE | 2019-06-20 08:31 | Discharge Inst-Skilled Nursing ---
Discharge Inst-Skilled NF Reconcile Patient Problems Problems Reviewed?: Yes Consult/Follow Up/Orders Skilled NF Admit to: [facility] Certification (SNF) I certify that SNF services are required to be given on an inpatient basis because of the above named patient's need for group home care on a continuing basis for the conditions(s) for which he/she was receiving inpatient hospital services prior to his/her transfer to the SNF. [facility] Order: Nursing Services, Clerical Supervisor-Evaluate & Treat, Physical Therapy-Evaluate & Treat, Wound Care-Eval/Treat Oxygen Delivery Method: Nasal Cannula Discharge Diet: Other Diet (Renal insufficiency) Daily Activity as Tolerated: Yes New & Resume Previous Orders Juan Stack Jun 20, 2019 08:30 JUAN STACK DO Jun 20, 2019 08:31
--- NOTE | 2019-06-20 09:16 | Occupational Ther Daily Note ---
OT Current Status-Daily Note Subjective Pt laying in bed at start off session stating she is very tired. Pt declined all ADLs on this date, "I just want to rest". OT educated pt on benefits of therapy in order to increase strength and endurance, with mod encouragement pt agreed to BUE exercises. Mental Status/Objective Attachments: Oxygen ADL-Treatment Therapy Code Descriptions/Definitions Functional [place] Measure: 0=Not Assessed/NA 4=Minimal Assistance 1=Total Assistance 5=Supervision or Setup 2=Maximal Assistance 6=Modified [place] 3=Moderate Assistance 7=Complete IndependenceSCALE: Activities may be completed with or without assistive devices. 2-Zenkajpflc-chwftxx completes the activity by him/herself with no assistance from a helper. 5-Set-up or Clean-up Assistance-helper sets up or cleans up; patient completes activity. [place] assists only prior to or following the activity. 4-Supervision or Touching Assistance-helper provides verbal cues and/or touching/steadying and/or contact guard assistance as patient completes activity. Assistance may be provided throughout the activity or intermittently. 3-Partial/Moderate Assistance-helper does LESS THAN HALF the effort. [place] lifts, holds or supports trunk or limbs, but provides less than half the effort. 2-Substantial/Maximal Assistance-helper does MORE THAN HALF the effort. [place] lifts or holds trunk or limbs and provides more than half the effort. 9-Zgwzpqyjx-cynhra does ALL the effort. Patient does none of the effort to complete the activity. Or, the assistance of 2 or more helpers is required for the patient to complete the activity. If activity was not attempted, code reason: 7-Patient Refused. 9-Not Applicable-not attempted and the patient did not perform the activity before the current illness, exacerbation or injury. 10-Not Attempted due to Environmental Limitations-(lack of equipment, weather restraints, etc.). 88-Not Attempted due to Medical Conditions or Safety Concerns. Other Treatment Pt laying in bed, OT educated pt on the benefits of therapy. Pt completed x10 reps each BUEs elbow flexion and shoulder flexion in order to increase functional endurance and strength. Pt required rest breaks between each task, with cues to open her eyes during the exercises so she doesn't fall asleep. After exercises, pt stated she felt better. OT educated pt to complete the exercises throughout the day. Education OT Patient Education: Correct positioning, Energy conservation, Exercise program, Progress toward Goal/Update tx plan, Purpose of tx/functional activi ties Teaching Recipient: Patient Teaching Methods: Demonstration, Discussion Response to Teaching: Verbalize Understanding, Return Demonstration OT [facility] Goals Life Educator Goals Time Frame: Jun 27, 2019 Eating (QC): 6 Oral Hygiene (QC): 6 Toileting Hygiene (QC): 3 Shower/Bathe Self (QC): 3 Upper Body Dressing (QC): 3 Lower Body Dressing (QC): 3 On/Off Footwear (QC): 2 Additional Goals: 1-Demonstrate ADL Tasks, 2-Verbalize Understanding, 3- ImproveStrength/Jose J 1=Demonstrate adherence to instructed precautions during ADL tasks. 2=Patient will verbalize/demonstrate understanding of assistive devices/mo difications for ADL. 3=Patient will improve strength/tolerance for activity to enable patient to perform ADL's. OT Education/Plan Problem List/Assessment Assessment: Decreased Activ Tolerance, Decreased UE Strength, Impaired I ADL's, Impaired Self-Care Skills Discharge Recommendations Plan/Recommendations: Continue POC Treatment Plan/Plan of Care Treatment,Training & Education: Yes Patient would benefit from OT for education, treatment and training to promote independence in ADL's, mobility, safety and/or upper extremity function for ADL's. Plan of Care: ADL Retraining, Caregiver Training, Functional Mobility, UE Funct Exercise/Act Treatment Duration: Jun 27, 2019 Frequency: 5 times per week Estimated Hrs Per Day: .25 hour per day Agreement: Yes Rehab Potential: Guarded Time/GCodes Start Time: 08:57 Stop Time: 09:05 Total Time Billed (hr/min): 8 Billed Treatment Time 1, EX ОЛЬГА [place] OT Jun 20, 2019 09:16
--- NOTE | 2019-06-20 10:00 | NUR ---
DISCHARGE PLANNING: Patient is discharged today to her previous placement with [facility]... She initially declined discharge. IMM was explained to her and she declined to appeal. She will discharge today to [facility] SKILLED orders. Addendum: 06/20/19 at 1039 by NURY DUBON RN I did let her MPOA know about discharge plans and our discussion regarding hospice.
[2019-06-20] MEDS: meTOprolol TARTRATE 25 MG (LOPRESSOR) TABLET PO SCH (10:02)
[2019-06-20] MEDS: PANTOPRAZOLE 40 MG (PROTONIX) TAB PO SCH (10:02)
[2019-06-20] MEDS: NYSTATIN OINTMENT 30 GM TUBE TOP SCH (10:03)
[2019-06-20] MEDS: DOCUSATE SODIUM 100 MG (COLACE) CAP PO SCH (10:03)
[2019-06-20] MEDS: SENNOSIDES 8.6 MG (SENOKOT) TAB PO SCH (10:03)
--- NOTE | 2019-06-20 11:05 | NUR ---
NOTE THAT PT HAS BEEN INCONT OF URINE - VOICED NO DISCOMFORT
[2019-06-20 12:00] VITALS: BP 159/70
[2019-06-20 12:09] VITALS: BP 140/64
--- NOTE | 2019-06-23 07:35 | Discharge Summary ---
Diagnosis/Chief Complaint Date of Admission Jun 06, 2019 at 14:54 Date of Discharge Jun 20, 2019 at 12:00 Discharge Time: 07:32 Discharge Diagnosis Acute kidney failure. Renal insufficiency. Anemia. Anxiety disorder. COPD. COPD with acute exacerbation. GERD. Hypothyroid. Morbid obesity. Personal history of nicotine dependence. Pneumonia. Hyperlipidemia. Diabetes. Thrombocytopenia Discharge Summary Consultations Pulmonology Discharge Physical Examination Allergies: Coded Allergies: ondansetron (Verified Allergy, Unknown, 05/14/19) risperidone (Verified Allergy, Unknown, 10/16/18) simvastatin (Unverified Adverse Reaction, Unknown, 04/20/14) Vitals & I&Os Vital Signs Date Time Temp Pulse Resp B/P (MAP) Pulse Ox O2 Delivery O2 Flow Rate FiO2 06/20/19 12:09 36.8 62 20 140/64 (89) 100 High Flow N/C 3.00 06/19/19 08:00 30 Hospital Course Patient in hospital did improve. Patient [facility] Labs (last 24 hrs) Laboratory Tests 06/06/19 12:05: White Blood Count 13.7H, Red Blood Count 3.24L, Hemoglobin 9.1L, Hematocrit 34L, Mean Corpuscular Volume 104H, Mean Corpuscular Hemoglobin 28, Mean Corpuscular Hemoglobin Concent 27L, Red Cell Distribution Width 15.8H, Platelet Count 107L, Mean Platelet Volume 11.2H, Neutrophils (%) (Auto) 89H, Lymphocytes (%) (Auto) 7L, Monocytes (%) (Auto) 3, Eosinophils (%) (Auto) 2, Basophils (%) (Auto) 0, Neutrophils # (Auto) 12.2H, Lymphocytes # (Auto) 0.9L, Monocytes # (Auto) 0.4, Eosinophils # (Auto) 0.2, Basophils # (Auto) 0.0, Neutrophils % (Manual) 86, Lymphocytes % (Manual) 10, Monocytes % (Manual) 0, Eosinophils % (Manual) 2, Basophils % (Manual) 0, Band Neutrophils 2, Anisocytosis SLIGHT, Macrocytosis SLIGHT, Sodium Level 146H, Potassium Level 4.7, Chloride Level 109H, Carbon Dioxide Level 26, Anion Gap 11, Blood Urea Nitrogen 51H, Creatinine 2.26H, Estimat Glomerular Filtration Rate 21, BUN/Creatinine Ratio 23, Glucose Level 132H, Lactic Acid Level 0.54, Calcium Level 9.2, Corrected Calcium 9.5, Total Bilirubin 0.3, Aspartate Amino Transf (AST/SGOT) 8, Alanine Aminotransferase (ALT/SGPT) < 6, Alkaline Phosphatase 127, B-Type Natriuretic Peptide 750.3H, Total Protein 7.4, Albumin 3.6, Procalcitonin 1.07H 06/06/19 14:05: Urine Color YELLOW, Urine Clarity CLEAR, Urine pH 5.5, Urine Specific [place] 1.020, Urine Protein TRACE, Urine Glucose (UA) NEGATIVE, Urine Ketones NEGATIVE, Urine Nitrite NEGATIVE, Urine Bilirubin NEGATIVE, Urine Urobilinogen 0.2, Urine Leukocyte Esterase NEGATIVE, Urine RBC (Auto) NEGATIVE, Urine RBC RARE, Urine WBC 0-2, Urine Squamous Epithelial Cells 10-25H, Urine Crystals PRESENTH, Urine Amorphous Sediment FEW OANH URATESH, Urine Bacteria NEGATIVE, Urine Casts PRESENT, Urine Hyaline Casts 2-5H, Urine Mucus NEGATIVE, Urine Culture Indicated NO 06/06/19 15:01: Blood Gas Puncture Site RIGHT RADIAL, Blood Gas Patient Temperature 97.4, Arterial Blood pH 7.18*L, Arterial Blood Partial Pressure CO2 80*H, Arterial Blood Partial Pressure O2 62L, Arterial Blood HCO3 29H, Arterial Blood Total CO2 31.5H, Arterial Blood Oxygen Saturation 91L, Arterial Blood Base Excess 1.2, Clif Test POSITIVE, Blood Gas Ventilator Setting NO, Blood Gas Inspired Oxygen 3 L 06/07/19 00:58: Blood Gas Puncture Site RIGHT RADIAL, Blood Gas Patient Temperature 36.2, Arterial Blood pH 7.16*L, Arterial Blood Partial Pressure CO2 86*H, Arterial Blood Partial Pressure O2 45L, Arterial Blood HCO3 30H, Arterial Blood Total CO2 32.6H, Arterial Blood Oxygen Saturation 72L, Arterial Blood Base Excess 1.7, Clif Test YES-POS, Blood Gas Ventilator Setting NO, Blood Gas Inspired Oxygen 40% 06/07/19 01:15: Lactic Acid Level 0.50 06/07/19 02:39: White Blood Count 7.3, Red Blood Count 2.86L, Hemoglobin 8.0L, Hematocrit 30L, Mean Corpuscular Volume 106H, Mean Corpuscular Hemoglobin 28, Mean Corpuscular Hemoglobin Concent 26L, Red Cell Distribution Width 15.4H, Platelet Count 86L, Mean Platelet Volume 11.2H, Neutrophils (%) (Auto) 85H, Lymphocytes (%) (Auto) 10L, Monocytes (%) (Auto) 4, Eosinophils (%) (Auto) 1, Basophils (%) (Auto) 0, Neutrophils # (Auto) 6.2, Lymphocytes # (Auto) 0.7L, Monocytes # (Auto) 0.3, Eosinophils # (Auto) 0.1, Basophils # (Auto) 0.0, Sodium Level 149H, Potassium Level 4.4, Chloride Level 111H, Carbon Dioxide Level 25, Anion Gap 13, Blood Urea Nitrogen 52H, Creatinine 2.34H, Estimat Glomerular Filtration Rate 21, BUN/Creatinine Ratio 22, Glucose Level 104, Calcium Level 9.0, Corrected Calcium 9.7, Phosphorus Level 4.7, Magnesium Level 2.1, Total Bilirubin 0.2, Aspartate Amino Transf (AST/SGOT) 8, Alanine Aminotransferase (ALT/SGPT) 7, Alkaline P hosphatase 104, Total Protein 6.3L, Albumin 3.1L 06/07/19 03:00: Blood Gas Puncture Site LEFT RADIAL, Blood Gas Patient Temperature 37.0, Arterial Blood pH 7.24*L, Arterial Blood Partial Pressure CO2 69H, Arterial Blood Partial Pressure O2 54L, Arterial Blood HCO3 28H, Arterial Blood Total CO2 30.5, Arterial Blood Oxygen Saturation 86L, Arterial Blood Base Excess 1.7, Clif Test YES-POS, Blood Gas Ventilator Setting NO, Blood Gas Inspired Oxygen 30% 06/07/19 13:15: Blood Gas Puncture Site R RADIAL, Blood Gas Patient Temperature 37.8, Arterial Blood pH 7.20*L, Arterial Blood Partial Pressure CO2 69H, Arterial Blood Partial Pressure O2 76L, Arterial Blood HCO3 26, Arterial Blood Total CO2 28.0, Arterial Blood Oxygen Saturation 94, Arterial Blood Base Excess -0.9, Clif Test YES-POS, Blood Gas Ventilator Setting NO, Blood Gas Inspired Oxygen 35% 06/07/19 14:12: Sodium Level 148H, Potassium Level 4.7, Chloride Level 109H, Carbon Dioxide Level 23, Anion Gap 16H, Blood Urea Nitrogen 55H, Creatinine 2.30H, Estimat Glomerular Filtration Rate 21, BUN/Creatinine Ratio 24, Glucose Level 174H, Calcium Level 8.9 06/07/19 17:46: Glucometer 161H 06/07/19 19:00: Blood Gas Puncture Site RIGHT RADIAL, Blood Gas Patient Temperature 37.6, Arterial Blood pH 7.23*L, Arterial Blood Partial Pressure CO2 67H, Arterial Blood Partial Pressure O2 76L, Arterial Blood HCO3 27, Arterial Blood Total CO2 29.3, Arterial Blood Oxygen Saturation 94, Arterial Blood Base Excess 0.3, Clif Test YES-POS, Blood Gas Ventilator Setting NO, Blood Gas Inspired Oxygen 35% 06/07/19 20:50: Glucometer 209H 06/08/19 02:59: White Blood Count 3.8L, Red Blood Count 2.74L, Hemoglobin 7.6L, Hematocrit 28L, Mean Corpuscular Volume 103H, Mean Corpuscular Hemoglobin 28, Mean Corpuscular Hemoglobin Concent 27L, Red Cell Distribution Width 15.4H, Platelet Count 90L, Mean Platelet Volume 10.3, Neutrophils (%) (Auto) 93H, Lymphocytes (%) (Auto) 5L , Monocytes (%) (Auto) 3, Eosinophils (%) (Auto) 0, Basophils (%) (Auto) 0, Neutrophils # (Auto) 3.6, Lymphocytes # (Auto) 0.2L, Monocytes # (Auto) 0.1, Eosinophils # (Auto) 0.0, Basophils # (Auto) 0.0, Sodium Level 148H, Potassium Level 4.9, Chloride Level 111H, Carbon Dioxide Level 24, Anion Gap 13, Blood Urea Nitrogen 58H, Creatinine 2.28H, Estimat Glomerular Filtration Rate 21, BUN/Creatinine Ratio 25, Glucose Level 130H, Calcium Level 8.8, Phosphorus Level 4.7, Magnesium Level 2.2, Vitamin B1 Level 78, Vitamin B12 Level 291, Methylmalonic Acid 0.62H, Homocysteine 9.1 06/08/19 03:10: Blood Gas Puncture Site RIGHT RADIAL, Blood Gas Patient Temperature 36.3, Arterial Blood pH 7.23*L, Arterial Blood Partial Pressure CO2 71*H, Arterial Blood Partial Pressure O2 103H, Arterial Blood HCO3 29H, Arterial Blood Total CO2 31.5H, Arterial Blood Oxygen Saturation 99, Arterial Blood Base Excess 2.2, Clif Test YES-POS, Blood Gas Ventilator Setting NO, Blood Gas Inspired Oxygen 40% 06/08/19 11:50: Blood Gas Puncture Site LT RADIAL, Blood Gas Patient Temperature 36.9, Arterial Blood pH 7.28*L, Arterial Blood Partial Pressure CO2 63H, Arterial Blood Partial Pressure O2 64L, Arterial Blood HCO3 29H, Arterial Blood Total CO2 30.6, Arterial Blood Oxygen Saturation 93L, Arterial Blood Base Excess 2.5, Clif Test YES-POS, Blood Gas Ventilator Setting NO, Blood Gas Inspired Oxygen 36% 06/08/19 12:08: Glucometer 148H 06/08/19 15:54: Glucometer 148H 06/08/19 18:25: Stool Occult Blood Immunoassay NEGATIVE 06/08/19 20:49: Glucometer 148H 06/09/19 03:05: Blood Gas Puncture Site RIGHT RADIAL, Blood Gas Patient Temperature 36.0, Arterial Blood pH 7.24*L, Arterial Blood Partial Pressure CO2 70H, Arterial Blood Partial Pressure O2 87, Arterial Blood HCO3 29H, Arterial Blood Total CO2 31.4H, Arterial Blood Oxygen Saturation 97, Arterial Blood Base Excess 2.2, Clif Test YES-POS, Blood Gas Ventilator Setting NO, Blood Gas Inspired Oxygen 45% 06/09/19 03:10: White Blood Count 4.4, Red Blood Count 2.86L, Hemoglobin 8.0L, Hematocrit 30L, Mean Corpuscular Volume 103H, Mean Corpuscular Hemoglobin 28, Mean Corpuscular Hemoglobin Concent 27L, Red Cell Distribution Width 15.0H, Platelet Count 97L, Mean Platelet Volume 11.4H, Neutrophils (%) (Auto) 93H, Lymphocytes (%) (Auto) 5L, Monocytes (%) (Auto) 2, Eosinophils (%) (Auto) 0, Basophils (%) (Auto) 0, Neutrophils # (Auto) 4.1, Lymphocytes # (Auto) 0.2L, Monocytes # (Auto) 0.1, Eosinophils # (Auto) 0.0, Basophils # (Auto) 0.0, Sodium Level 149H, Potassium Level 4.6, Chloride Level 111H, Carbon Dioxide Level 26, Anion Gap 12, Blood U barbie Nitrogen 66H, Creatinine 2.18H, Estimat Glomerular Filtration Rate 22, BUN/Creatinine Ratio 30, Glucose Level 164H, Calcium Level 8.9, Phosphorus Level 5.1H, Magnesium Level 2.3 06/09/19 11:24: Glucometer 218H 06/09/19 12:25: Blood Gas Puncture Site RT RAD, Blood Gas Patient Temperature 36.1, Arterial Blood pH 7.31*L, Arterial Blood Partial Pressure CO2 59H, Arterial Blood Partial Pressure O2 69L, Arterial Blood HCO3 29H, Arterial Blood Total CO2 31.0, Arterial Blood Oxygen Saturation 95, Arterial Blood Base Excess 3.1H, Clif Test YES-POS, Blood Gas Ventilator Setting NO, Blood Gas Inspired Oxygen 30 06/09/19 17:03: Glucometer 204H 06/09/19 23:52: Glucometer 208H 06/10/19 03:30: White Blood Count 4.9, Red Blood Count 2.96L, Hemoglobin 8.0L, Hematocrit 29L, Mean Corpuscular Volume 99, Mean Corpuscular Hemoglobin 27, Mean Corpuscular Hemoglobin Concent 27L, Red Cell Distribution Width 14.9H, Platelet Count 105L, Mean Platelet Volume 10.8H, Neutrophils (%) (Auto) 93H, Lymphocytes (%) (Auto) 4L, Monocytes (%) (Auto) 3, Eosinophils (%) (Auto) 0, Basophils (%) (Auto) 0, Neutrophils # (Auto) 4.5, Lymphocytes # (Auto) 0.2L, Monocytes # (Auto) 0.2, Eosinophils # (Auto) 0.0, Basophils # (Auto) 0.0, Sodium Level 141, Potassium Level 4.3, Chloride Level 107, Carbon Dioxide Level 23, Anion Gap 11, Blood Urea Nitrogen 64H, Creatinine 1.97H, Estimat Glomerular Filtration Rate 25, BUN/Creatinine Ratio 32, Glucose Level 231H, Calcium Level 8.5, Phosphorus Level 4.0, Magnesium Level 2.2 06/10/19 03:43: Blood Gas Puncture Site RIGHT RADIAL, Blood Gas Patient Temperature 36.0, Arterial Blood pH 7.25*L, Arterial Blood Partial Pressure CO2 69H, Arterial Blood Partial Pressure O2 71L, Arterial Blood HCO3 30H, Arterial Blood Total CO2 32.0H, Arterial Blood Oxygen Saturation 96, Arterial Blood Base Excess 2.9H, Clif Test YES-POS, Blood Gas Ventilator Setting NO, Blood Gas Inspired Oxygen 40% 06/10/19 10:40: Blood Gas Puncture Site L RADIAL, Blood Gas Patient Temperature 35.0, Arterial Blood pH 7.30*L, Arterial Blood Partial Pressure CO2 58H, Arterial Blood Partial Pressure O2 67L, Arterial Blood HCO3 29H, Arterial Blood Total CO2 31.0, Arterial Blood Oxygen Saturation 96, Arterial Blood Base Excess 2.8H, Clif Test YES-POS, Blood Gas Ventilator Setting NO, Blood Gas Inspired Oxygen 35% 06/10/19 11:58: Glucometer 182H 06/10/19 17:37: Glucometer 168H 06/10/19 23:32: Glucometer 195H 06/11/19 02:59: White Blood Count 6.8, Red Blood Count 3.04L, Hemoglobin 8.4L, Hematocrit 29L, Mean Corpuscular Volume 97, Mean Corpuscular Hemoglobin 28, Mean Corpuscular Hemoglobin Concent 29L, Red Cell Distribution Width 14.7H, Platelet Count 101L, Mean Platelet Volume 11.7H, Neutrophils (%) (Auto) 94H, Lymphocytes (%) (Auto) 4L, Monocytes (%) (Auto) 2, Eosinophils (%) (Auto) 0, Basophils (%) (Auto) 0, Neutrophils # (Auto) 6.4, Lymphocytes # (Auto) 0.3L, Monocytes # (Auto) 0.1, Eosinophils # (Auto) 0.0, Basophils # (Auto) 0.0, Sodium Level 141, Potassium Level 4.8, Chloride Level 106, Carbon Dioxide Level 24, Anion Gap 11, Blood Urea Nitrogen 61H, Creatinine 1.86H, Estimat Glomerular Filtration Rate 27, BUN/Creatinine Ratio 33, Glucose Level 186H, Calcium Level 8.5, Phosphorus Level 2.9, Magnesium Level 2.2 06/11/19 03:25: Blood Gas Puncture Site LEFT RADIAL, Blood Gas Patient Temperature 36.4, Arterial Blood pH 7.37, Arterial Blood Partial Pressure CO2 50H, Arterial Blood Partial Pressure O2 70L, Arterial Blood HCO3 29H, Arterial Blood Total CO2 30.4, Arterial Blood Oxygen Saturation 95, Arterial Blood Base Excess 3.8H, Clif Test YES-POS, Blood Gas Ventilator Setting NO, Blood Gas Inspired Oxygen 30% 06/11/19 11:22: Glucometer 180H 06/11/19 15:05: Glucometer 166H 06/11/19 20:31: Glucometer 163H 06/12/19 03:40: White Blood Count 7.0, Red Blood Count 3.24L, Hemoglobin 8.9L, Hematocrit 31L, Mean Corpuscular Volume 96, Mean Corpuscular Hemoglobin 27, Mean Corpuscular Hemoglobin Concent 29L, Red Cell Distribution Width 14.9H, Platelet Count 99L, Mean Platelet Volume 11.1H, Neutrophils (%) (Auto) 94H, Lymphocytes (%) (Auto) 4L, Monocytes (%) (Auto) 2, Eosinophils (%) (Auto) 0, Basophils (%) (Auto) 0, Neutrophils # (Auto) 6.6, Lymphocytes # (Auto) 0.3L, Monocytes # (Auto) 0.2, Eosinophils # (Auto) 0.0, Basophils # (Auto) 0.0, Sodium Level 141, Potassium Level 4.9, Chloride Level 105, Carbon Dioxide Level 25, Anion Gap 11, Blood Urea Nitrogen 59H, Creatinine 1.91H, Estimat Glomerular Filtration Rate 26, BUN/Creatinine Ratio 31, Glucose Level 201H, Calcium Level 8.5, Phosphorus Level 3.6, Magnesium Level 2.2 06/12/19 03:45: Blood Gas Puncture Site RT RADIAL, Blood Gas Patient Temperature 36.3, Arterial Blood pH 7.34*L, Arterial Blood Partial Pressure CO2 56H, Arterial Blood Partial Pressure O2 82, Arterial Blood HCO3 30H, Arterial Blood Total CO2 31.7H, Arterial Blood Oxygen Saturation 97, Arterial Blood Base Excess 4.4H, Clif Test YES-POS, Blood Gas Ventilator Setting NO, Blood Gas Inspired Oxygen 30% 06/12/19 11:12: Glucometer 202H 06/12/19 11:17: Methylmalonic Acid 0.86H 06/12/19 16:14: Glucometer 186H 06/12/19 20:40: Glucometer 188H 06/13/19 03:14: White Blood Count 6.6, Red Blood Count 3.14L, Hemoglobin 8.9L, Hematocrit 30L, Mean Corpuscular Volume 96, Mean Corpuscular Hemoglobin 28, Mean Corpuscular Hemoglobin Concent 30L, Red Cell Distribution Width 14.9H, Platelet Count 94L, Mean Platelet Volume 11.6H, Neutrophils (%) (Auto) 91H, Lymphocytes (%) (Auto) 5L, Monocytes (%) (Auto) 4, Eosinophils (%) (Auto) 0, Basophils (%) (Auto) 0, Ne utrophils # (Auto) 6.0, Lymphocytes # (Auto) 0.3L, Monocytes # (Auto) 0.3, Eosi nophils # (Auto) 0.0, Basophils # (Auto) 0.0, Neutrophils % (Manual) 89, Lymphocytes % (Manual) 7, Monocytes % (Manual) 4, Sodium Level 140, Potassium Level 4.6, Chloride Level 105, Carbon Dioxide Level 25, Anion Gap 10, Blood Urea Nitrogen 55H, Creatinine 1.58H, Estimat Glomerular Filtration Rate 32, BUN/Creatinine Ratio 35, Glucose Level 163H, Calcium Level 8.4L, Phosphorus Level 3.5, Magnesium Level 2.2 06/13/19 10:31: Blood Gas Puncture Site RR, Blood Gas Patient Temperature 36.8, Arterial Blood pH 7.35L, Arterial Blood Partial Pressure CO2 55H, Arterial Blood Partial Pressure O2 60L, Arterial Blood HCO3 30H, Arterial Blood Total CO2 31.5H, Arterial Blood Oxygen Saturation 93L, Arterial Blood Base Excess 4.5H, Clif Test YES-POS, Blood Gas Ventilator Setting NO, Blood Gas Inspired Oxygen 40% 06/13/19 11:01: Glucometer 187H 06/13/19 12:29: Glucometer 186H 06/13/19 15:50: Glucometer 252H 06/13/19 20:46: Glucometer 213H 06/14/19 03:40: White Blood Count 8.7, Red Blood Count 3.38L, Hemoglobin 9.4L, Hematocrit 32L, Mean Corpuscular Volume 95, Mean Corpuscular Hemoglobin 28, Mean Corpuscular Hemoglobin Concent 29L, Red Cell Distribution Width 15.3H, Platelet Count 107L, Mean Platelet Volume 11.1H, Neutrophils (%) (Auto) 95H, Lymphocytes (%) (Auto) 3L, Monocytes (%) (Auto) 2, Eosinophils (%) (Auto) 0, Basophils (%) (Auto) 0, Neutrophils # (Auto) 8.2H, Lymphocytes # (Auto) 0.2L, Monocytes # (Auto) 0.2, Eosinophils # (Auto) 0.0, Basophils # (Auto) 0.0, Sodium Level 140, Potassium Level 5.0, Chloride Level 104, Carbon Dioxide Level 25, Anion Gap 11, Blood Urea Nitrogen 52H, Creatinine 1.52H, Estimat Glomerular Filtration Rate 34, BUN/Creatinine Ratio 34, Glucose Level 198H, Calcium Level 8.2L, Phosphorus Level 3.4, Magnesium Level 2.3 06/14/19 11:05: Glucometer 159H 06/14/19 15:52: Glucometer 227H 06/14/19 20:05: Glucometer 176H 06/15/19 03:49: White Blood Count 10.4, Red Blood Count 3.33L, Hemoglobin 9.3L, Hematocrit 32L, Mean Corpuscular Volume 96, Mean Corpuscular Hemoglobin 28, Mean Corpuscular Hemoglobin Concent 29L, Red Cell Distribution Width 15.4H, Platelet Count 116L, Mean Platelet Volume 11.4H, Neutrophils (%) (Auto) 96H, Lymphocytes (%) (Auto) 2L, Monocytes (%) (Auto) 1, Eosinophils (%) (Auto) 0, Basophils (%) (Auto) 0, Neutrophils # (Auto) 10.0H, Lymphocytes # (Auto) 0.2L, Monocytes # (Auto) 0.2, Eosinophils # (Auto) 0.0, Basophils # (Auto) 0.0, Sodium Level 140, Potassium Level 5.3H, Chloride Level 104, Carbon Dioxide Level 28, Anion Gap 8, Blood Urea Nitrogen 51H, Creatinine 1.31H, Estimat Glomerular Filtration Rate 40, BUN/Creatinine Ratio 39, Glucose Level 203H, Calcium Level 8.3L, Phosphorus [place] 3.2, Magnesium Level 2.3 06/15/19 11:32: Glucometer 111H 06/15/19 16:30: Glucometer 170H 06/15/19 21:06: Glucometer 285H 06/16/19 04:30: White Blood Count 8.7, Red Blood Count 3.23L, Hemoglobin 9.1L, Hematocrit 31L, Mean Corpuscular Volume 96, Mean Corpuscular Hemoglobin 28, Mean Corpuscular Hemoglobin Concent 29L, Red Cell Distribution Width 16.0H, Platelet Count 111L, Mean Platelet Volume 11.4H, Neutrophils (%) (Auto) 91H, Lymphocytes (%) (Auto) 5L, Monocytes (%) (Auto) 4, Eosinophils (%) (Auto) 0, Basophils (%) (Auto) 0, Neutrophils # (Auto) 7.9H, Lymphocytes # (Auto) 0.4L, Monocytes # (Auto) 0.4, Eosinophils # (Auto) 0.0, Basophils # (Auto) 0.0, Sodium Level 141, Potassium Level 5.2H, Chloride Level 104, Carbon Dioxide Level 28, Anion Gap 9, Blood Urea Nitrogen 52H, Creatinine 1.45H, Estimat Glomerular Filtration Rate 36, BUN/Creatinine Ratio 36, Glucose Level 145H, Calcium Level 8.0L, Phosphorus Level 2.9, Magnesium Level 2.2 06/16/19 11:18: Glucometer 297H 06/16/19 16:06: Glucometer 172H 06/16/19 20:46: Glucometer 164H 06/17/19 05:53: Glucometer 110 06/17/19 11:26: Glucometer 179H 06/17/19 12:15: White Blood Count 10.4, Red Blood Count 3.25L, Hemoglobin 9.2L, Hematocrit 32L, Mean Corpuscular Volume 98, Mean Corpuscular Hemoglobin 28, Mean Corpuscular Hemoglobin Concent 29L, Red Cell Distribution Width 16.0H, Platelet Count 102L, Mean Platelet Volume 12.3H, Neutrophils (%) (Auto) 93H, Lymphocytes (%) (Auto) 4L, Monocytes (%) (Auto) 3, Eosinophils (%) (Auto) 1, Basophils (%) (Auto) 0, Neutrophils # (Auto) 9.7H, Lymphocytes # (Auto) 0.4L, Monocytes # (Auto) 0.3, Eosinophils # (Auto) 0.1, Basophils # (Auto) 0.0, Sodium Level 140, Potassium Level 5.5H, Chloride Level 104, Carbon Dioxide Level 28, Anion Gap 8, Blood Urea Nitrogen 45H, Creatinine 1.31H, Estimat Glomerular Filtration Rate 40, BUN/Creatinine Ratio 34, Glucose Level 179H, Calcium Level 8.0L, Phosphorus Level 3.2, Magnesium Level 2.3 06/17/19 15:24: Glucometer 275H 06/17/19 20:18: Glucometer 143H 06/18/19 05:37: Glucometer 111H 06/18/19 10:35: Glucometer 218H 06/18/19 16:20: Glucometer 215H 06/18/19 20:43: Glucometer 160H 06/19/19 04:54: White Blood Count 10.4, Red Blood Count 3.23L, Hemoglobin 9.1L, Hematocrit 32L, Mean Corpuscular Volume 100H, Mean Corpuscular Hemoglobin 28, Mean Corpuscular Hemoglobin Concent 28L, Red Cell Distribution Width 16.3H, Platelet Count 115L, Mean Platelet Volume 12.0H, Neutrophils (%) (Auto) 86H, Lymphocytes (%) (Auto) 7L, Monocytes (%) (Auto) 6, Eosinophils (%) (Auto) 1, Basophils (%) (Auto) 0, Neutrophils # (Auto) 8.9H, Lymphocytes # (Auto) 0.8L, Monocytes # (Auto) 0.6, Eosinophils # (Auto) 0.1, Basophils # (Auto) 0.0, Sodium Level 141, Potassium Level 5.3H, Chloride Level 105, Carbon Dioxide Level 28, Anion Gap 8, Blood Urea Nitrogen 45H, Creatinine 1.52H, Estimat Glomerular Filtration Rate 34, BUN/Creatinine Ratio 30, Glucose Level 127H, Calcium Level 8.1L, Corrected Calcium 8.7, Total Bilirubin 0.3, Aspartate Amino Transf (AST/SGOT) 11, Alanine Aminotransferase (ALT/SGPT) 14, Alkaline Phosphatase 68, Total Protein 5.5L, Albumin 3.2 06/19/19 05:09: Glucometer 121H 06/19/19 11:31: Glucometer 237H 06/19/19 16:19: Glucometer 193H 06/19/19 20:35: Glucometer 124H 06/20/19 04:41: White Blood Count 8.0, Red Blood Count 3.09L, Hemoglobin 8.7L, Hematocrit 31L, Mean Corpuscular Volume 101H, Mean Corpuscular Hemoglobin 28, Mean Corpuscular Hemoglobin Concent 28L, Red Cell Distribution Width 16.4H, Platelet Count 100L, Mean Platelet Volume 12.0H, Neutrophils (%) (Auto) 84H, Lymphocytes (%) (Auto) 9L, Monocytes (%) (Auto) 6, Eosinophils (%) (Auto) 1, Basophils (%) (Auto) 0, Neutrophils # (Auto) 6.7, Lymphocytes # (Auto) 0.7L, Monocytes # (Auto) 0.5, Eosinophils # (Auto) 0.1, Basophils # (Auto) 0.0, Sodium Level 141, Potassium Level 5.4H, Chloride Level 105, Carbon Dioxide Level 27, Anion Gap 9, Blood Urea Nitrogen 41H, Creatinine 1.37H, Estimat Glomerular Filtration Rate 38, BUN/Creatinine Ratio 30, Glucose Level 108H, Calcium Level 7.9L 06/20/19 05:09: Glucometer 105 06/20/19 11:05: Glucometer 253H Microbiology 06/06/19 Blood Culture - Final, Complete No growth 06/06/19 Influenza Types A,B Antigen (QUYEN) - Final, Complete Laboratory Tests 06/06/19 12:05 06/07/19 02:39 06/07/19 14:12 06/08/19 02:59 06/09/19 03:10 06/10/19 03:30 06/11/19 02:59 06/12/19 03:40 06/13/19 03:14 06/14/19 03:40 06/15/19 03:49 06/16/19 04:30 06/17/19 12:15 06/19/19 04:54 06/20/19 04:41 Pending Labs Microbiology Date/Time Source Procedure Growth Status 06/06/19 12:55 Peripheral Rt Hand Blood Culture - Final No growth Complete 06/06/19 12:45 Peripheral Rt Ac Blood Culture - Final No growth Complete 06/06/19 12:05 Nasopharynx Influenza Types A,B Antigen (QUYEN) - Final Complete Laboratory Tests 06/06/19 12:05: White Blood Count 13.7, Red Blood Count 3.24, Hemoglobin 9.1, Hematocrit 34, Mean Corpuscular Volume 104, Mean Corpuscular Hemoglobin 28, Mean Corpuscular Hemoglobin Concent 27, Red Cell Distribution Width 15.8, Platelet Count 107, Mean Platelet Volume 11.2, Neutrophils (%) (Auto) 89, Lymphocytes (%) (Auto) 7, Monocytes (%) (Auto) 3, Eosinophils (%) (Auto) 2, Basophils (%) (Auto) 0, Neutrophils # (Auto) 12.2, Lymphocytes # (Auto) 0.9, Monocytes # (Auto) 0.4, Eosinophils # (Auto) 0.2, Basophils # (Auto) 0.0, Neutrophils % (Manual) 86, Lymphocytes % (Manual) 10, Monocytes % (Manual) 0, Eosinophils % (Manual) 2, Basophils % (Manual) 0, Band Neutrophils 2, Anisocytosis SLIGHT, Macrocytosis SLIGHT, Sodium Level 146, Potassium Level 4.7, Chloride Level 109, Carbon Dioxi de Level 26, Anion Gap 11, Blood Urea Nitrogen 51, Creatinine 2.26, Estimat Glomerular Filtration Rate 21, BUN/Creatinine Ratio 23, Glucose Level 132, Lactic Acid Level 0.54, Calcium Level 9.2, Corrected Calcium 9.5, Total Bilirubin 0.3, Aspartate Amino Transf (AST/SGOT) 8, Alanine Aminotransferase (ALT/SGPT) < 6, Alkaline Phosphatase 127, B-Type Natriuretic Peptide 750.3, Total Protein 7.4, Albumin 3.6, Procalcitonin 1.07 06/06/19 14:05: Urine Color YELLOW, Urine Clarity CLEAR, Urine pH 5.5, Urine Specific [place] 1.020, Urine Protein TRACE, Urine Glucose (UA) NEGATIVE, Urine Ketones NEGATIVE, Urine Nitrite NEGATIVE, Urine Bilirubin NEGATIVE, Urine Urobilinogen 0.2, Urine Leukocyte Esterase NEGATIVE, Urine RBC (Auto) NEGATIVE, Urine RBC RARE, Urine WBC 0-2, Urine Squamous Epithelial Cells 10-25, Urine Crystals PRESENT, Urine Amorphous Sediment FEW OANH URATES, Urine Bacteria NEGATIVE, Urine Casts PRESENT, Urine Hyaline Casts 2-5, Urine Mucus NEGATIVE, Urine Culture Indicated NO 06/06/19 15:01: Blood Gas Puncture Site RIGHT RADIAL, Blood Gas Patient Temperature 97.4, Arterial Blood pH 7.18, Arterial Blood Partial Pressure CO2 80, Arterial Blood Partial Pressure O2 62, Arterial Blood HCO3 29, Arterial Blood Total CO2 31.5, Arterial Blood Oxygen Saturation 91, Arterial Blood Base Excess 1.2, Clif Test POSITIVE, Blood Gas Ventilator Setting NO, Blood Gas Inspired Oxygen 3 L 06/07/19 00:58: Blood Gas Puncture Site RIGHT RADIAL, Blood Gas Patient Temperature 36.2, Arterial Blood pH 7.16, Arterial Blood Partial Pressure CO2 86, Arterial Blood Partial Pressure O2 45, Arterial Blood HCO3 30, Arterial Blood Total CO2 32.6, Arterial Blood Oxygen Saturation 72, Arterial Blood Base Excess 1.7, Clif Test YES-POS, Blood Gas Ventilator Setting NO, Blood Gas Inspired Oxygen 40% 06/07/19 01:15: Lactic Acid Level 0.50 06/07/19 02:39: White Blood Count 7.3, Red Blood Count 2.86, Hemoglobin 8.0, Hematocrit 30, Mean Corpuscular Volume 106, Mean Corpuscular Hemoglobin 28, Mean Corpuscular Hemoglobin Concent 26, Red Cell Distribution Width 15.4, Platelet Count 86, Mean Platelet Volume 11.2, Neutrophils (%) (Auto) 85, Lymphocytes (%) (Auto) 10, Monocytes (%) (Auto) 4, Eosinophils (%) (Auto) 1, Basophils (%) (Auto) 0, Neutrophils # (Auto) 6.2, Lymphocytes # (Auto) 0.7, Monocytes # (Auto) 0.3, Eosinophils # (Auto) 0.1, Basophils # (Auto) 0.0, Sodium Level 149, Potassium [place] 4.4, Chloride Level 111, Carbon Dioxide Level 25, Anion Gap 13, Blood Urea Nitrogen 52, Creatinine 2.34, Estimat Glomerular Filtration Rate 21, BUN/Creatinine Ratio 22, Glucose Level 104, Calcium Level 9.0, Corrected Calcium 9.7, Phosphorus Level 4.7, Magnesium Level 2.1, Total Bilirubin 0.2, Aspartate Amino Transf (AST/SGOT) 8, Alanine Aminotransferase (ALT/SGPT) 7, Alkaline Phosphatase 104, Total Protein 6.3, Albumin 3.1 06/07/19 03:00: Blood Gas Puncture Site LEFT RADIAL, Blood Gas Patient Temperature 37.0, Arterial Blood pH 7.24, Arterial Blood Partial Pressure CO2 69, Arterial Blood Partial Pressure O2 54, Arterial Blood HCO3 28, Arterial Blood Total CO2 30.5, Arterial Blood Oxygen Saturation 86, Arterial Blood Base Excess 1.7, Clif Test YES-POS, Blood Gas Ventilator Setting NO, Blood Gas Inspired Oxygen 30% 06/07/19 13:15: Blood Gas Puncture Site R RADIAL, Blood Gas Patient Temperature 37.8, Arterial Blood pH 7.20, Arterial Blood Partial Pressure CO2 69, Arterial Blood Partial Pressure O2 76, Arterial Blood HCO3 26, Arterial Blood Total CO2 28.0, Arterial Blood Oxygen Saturation 94, Arterial Blood Base Excess -0.9, Clif Test YES-POS, Blood Gas Ventilator Setting NO, Blood Gas Inspired Oxygen 35% 06/07/19 14:12: Sodium Level 148, Potassium Level 4.7, Chloride Level 109, Carbon Dioxide Level 23, Anion Gap 16, Blood Urea Nitrogen 55, Creatinine 2.30, Estimat Glomerular Filtration Rate 21, BUN/Creatinine Ratio 24, Glucose Level 174, Calcium Level 8.9 06/07/19 17:46: Glucometer 161 06/07/19 19:00: Blood Gas Puncture Site RIGHT RADIAL, Blood Gas Patient Temperature 37.6, Arterial Blood pH 7.23, Arterial Blood Partial Pressure CO2 67, Arterial Blood Partial Pressure O2 76, Arterial Blood HCO3 27, Arterial Blood Total CO2 29.3, Arterial Blood Oxygen Saturation 94, Arterial Blood Base Excess 0.3, Clif Test YES-POS, Blood Gas Ventilator Setting NO, Blood Gas Inspired Oxygen 35% 06/07/19 20:50: Glucometer 209 06/08/19 02:59: White Blood Count 3.8, Red Blood Count 2.74, Hemoglobin 7.6, Hematocrit 28, Mean Corpuscular Volume 103, Mean Corpuscular Hemoglobin 28, Mean Corpuscular Hemoglobin Concent 27, Red Cell Distribution Width 15.4, Platelet Count 90, Mean Platelet Volume 10.3, Neutrophils (%) (Auto) 93, Lymphocytes (%) (Auto) 5, Monocytes (%) (Auto) 3, Eosinophils (%) (Auto) 0, Basophils (%) (Auto) 0, Andres trophils # (Auto) 3.6, Lymphocytes # (Auto) 0.2, Monocytes # (Auto) 0.1, Eosinophils # (Auto) 0.0, Basophils # (Auto) 0.0, Sodium Level 148, Potassium Level 4.9, Chloride Level 111, Carbon Dioxide Level 24, Anion Gap 13, Blood Urea Nitrogen 58, Creatinine 2.28, Estimat Glomerular Filtration Rate 21, BUN/Creatinine Ratio 25, Glucose Level 130, Calcium Level 8.8, Phosphorus Level 4.7, Magnesium Level 2.2, Vitamin B1 Level 78, Vitamin B12 Level 291, Methylmalonic Acid 0.62, Homocysteine 9.1 06/08/19 03:10: Blood Gas Puncture Site RIGHT RADIAL, Blood Gas Patient Temperature 36.3, Arterial Blood pH 7.23, Arterial Blood Partial Pressure CO2 71, Arterial Blood Partial Pressure O2 103, Arterial Blood HCO3 29, Arterial Blood Total CO2 31.5, Arterial Blood Oxygen Saturation 99, Arterial Blood Base Excess 2.2, Clif Test YES-POS, Blood Gas Ventilator Setting NO, Blood Gas Inspired Oxygen 40% 06/08/19 11:50: Blood Gas Puncture Site LT RADIAL, Blood Gas Patient Temperature 36.9, Arterial Blood pH 7.28, Arterial Blood Partial Pressure CO2 63, Arterial Blood Partial Pressure O2 64, Arterial Blood HCO3 29, Arterial Blood Total CO2 30.6, Arterial Blood Oxygen Saturation 93, Arterial Blood Base Excess 2.5, Clif Test YES-POS, Blood Gas Ventilator Setting NO, Blood Gas Inspired Oxygen 36% 06/08/19 12:08: Glucometer 148 06/08/19 15:54: Glucometer 148 06/08/19 18:25: Stool Occult Blood Immunoassay NEGATIVE 06/08/19 20:49: Glucometer 148 06/09/19 03:05: Blood Gas Puncture Site RIGHT RADIAL, Blood Gas Patient Temperature 36.0, Arterial Blood pH 7.24, Arterial Blood Partial Pressure CO2 70, Arterial Blood Partial Pressure O2 87, Arterial Blood HCO3 29, Arterial Blood Total CO2 31.4, Arterial Blood Oxygen Saturation 97, Arterial Blood Base Excess 2.2, Clif Test YES-POS, Blood Gas Ventilator Setting NO, Blood Gas Inspired Oxygen 45% 06/09/19 03:10: White Blood Count 4.4, Red Blood Count 2.86, Hemoglobin 8.0, Hematocrit 30, Mean Corpuscular Volume 103, Mean Corpuscular Hemoglobin 28, Mean Corpuscular Hemoglobin Concent 27, Red Cell Distribution Width 15.0, Platelet Count 97, Mean Platelet Volume 11.4, Neutrophils (%) (Auto) 93, Lymphocytes (%) (Auto) 5, Monocytes (%) (Auto) 2, Eosinophils (%) (Auto) 0, Basophils (%) (Auto) 0, Neutrophils # (Auto) 4.1, Lymphocytes # (Auto) 0.2, Monocytes # (Auto) 0.1, Eosinophils # (Auto) 0.0, Basophils # (Auto) 0.0, Sodium Level 149, Potassium Level 4.6, Chloride Level 111, Carbon Dioxide Level 26, Anion Gap 12, Blood Urea Nitrogen 66, Creatinine 2.18, Estimat Glomerular Filtration Rate 22, BUN/Creatinine Ratio 30, Glucose Level 164, Calcium Level 8.9, Phosphorus Level 5.1, Magnesium Level 2.3 06/09/19 11:24: Glucometer 218 06/09/19 12:25: Blood Gas Puncture Site RT RAD, Blood Gas Patient Temperature 36.1, Arterial Blood pH 7.31, Arterial Blood Partial Pressure CO2 59, Arterial Blood Partial Pressure O2 69, Arterial Blood HCO3 29, Arterial Blood Total CO2 31.0, Arterial Blood Oxygen Saturation 95, Arterial Blood Base Excess 3.1, Clif Test YES-POS, Blood Gas Ventilator Setting NO, Blood Gas Inspired Oxygen 30 06/09/19 17:03: Glucometer 204 06/09/19 23:52: Glucometer 208 06/10/19 03:30: White Blood Count 4.9, Red Blood Count 2.96, Hemoglobin 8.0, Hematocrit 29, Mean Corpuscular Volume 99, Mean Corpuscular Hemoglobin 27, Mean Corpuscular Hemoglobin Concent 27, Red Cell Distribution Width 14.9, Platelet Count 105, Mean Platelet Volume 10.8, Neutrophils (%) (Auto) 93, Lymphocytes (%) (Auto) 4, Monocytes (%) (Auto) 3, Eosinophils (%) (Auto) 0, Basophils (%) (Auto) 0, Neutrophils # (Auto) 4.5, Lymphocytes # (Auto) 0.2, Monocytes # (Auto) 0.2, Eosinophils # (Auto) 0.0, Basophils # (Auto) 0.0, Sodium Level 141, Potassium Level 4.3, Chloride Level 107, Carbon Dioxide Level 23, Anion Gap 11, Blood Urea Nitrogen 64, Creatinine 1.97, Estimat Glomerular Filtration Rate 25, BUN/Creatinine Ratio 32, Glucose Level 231, Calcium Level 8.5, Phosphorus Level 4.0, Magnesium Level 2.2 06/10/19 03:43: Blood Gas Puncture Site RIGHT RADIAL, Blood Gas Patient Temperature 36.0, Arterial Blood pH 7.25, Arterial Blood Partial Pressure CO2 69, Arterial Blood Partial Pressure O2 71, Arterial Blood HCO3 30, Arterial Blood Total CO2 32.0, Arterial Blood Oxygen Saturation 96, Arterial Blood Base Excess 2.9, Clif Test YES-POS, Blood Gas Ventilator Setting NO, Blood Gas Inspired Oxygen 40% 06/10/19 10:40: Blood Gas Puncture Site L RADIAL, Blood Gas Patient Temperature 35.0, Arterial Blood pH 7.30, Arterial Blood Partial Pressure CO2 58, Arterial Blood Partial Pressure O2 67, Arterial Blood HCO3 29, Arterial Blood Total CO2 31.0, Arterial Blood Oxygen Saturation 96, Arterial Blood Base Excess 2.8, Clif Test YES-POS, Blood Gas Ventilator Setting NO, Blood Gas Inspired Oxygen 35% 06/10/19 11:58: Glucometer 182 06/10/19 17:37: Glucometer 168 06/10/19 23:32: Glucometer 195 06/11/19 02:59: White Blood Count 6.8, Red Blood Count 3.04, Hemoglobin 8.4, Hematocrit 29, Mean Corpuscular Volume 97, Mean Corpuscular Hemoglobin 28, Mean Corpuscular Hemoglobin Concent 29, Red Cell Distribution Width 14.7, Platelet Count 101, Mean Platelet Volume 11.7, Neutrophils (%) (Auto) 94, Lymphocytes (%) (Auto) 4, Monocytes (%) (Auto) 2, Eosinophils (%) (Auto) 0, Basophils (%) (Auto) 0, Neutrophils # (Auto) 6.4, Lymphocytes # (Auto) 0.3, Monocytes # (Auto) 0.1, Eosinophils # (Auto) 0.0, Basophils # (Auto) 0.0, Sodium Level 141, Potassium Level 4.8, Chloride Level 106, Carbon Dioxide Level 24, Anion Gap 11, Blood Urea Nitrogen 61, Creatinine 1.86, Estimat Glomerular Filtration Rate 27, BUN/Creatinine Ratio 33, Glucose Level 186, Calcium Level 8.5, Phosphorus Level 2.9, Magnesium Level 2.2 06/11/19 03:25: Blood Gas Puncture Site LEFT RADIAL, Blood Gas Patient Temperature 36.4, Arterial Blood pH 7.37, Arterial Blood Partial Pressure CO2 50, Arterial Blood Partial Pressure O2 70, Arterial Blood HCO3 29, Arterial Blood Total CO2 30.4, Arterial Blood Oxygen Saturation 95, Arterial Blood Base Excess 3.8, Clif Test YES-POS, Blood Gas Ventilator Setting NO, Blood Gas Inspired Oxygen 30% 06/11/19 11:22: Glucometer 180 06/11/19 15:05: Glucometer 166 06/11/19 20:31: Glucometer 163 06/12/19 03:40: White Blood Count 7.0, Red Blood Count 3.24, Hemoglobin 8.9, Hematocrit 31, Mean Corpuscular Volume 96, Mean Corpuscular Hemoglobin 27, Mean Corpuscular Hemoglobin Concent 29, Red Cell Distribution Width 14.9, Platelet Count 99, Mean Platelet Volume 11.1, Neutrophils (%) (Auto) 94, Lymphocytes (%) (Auto) 4, Monocytes (%) (Auto) 2, Eosinophils (%) (Auto) 0, Basophils (%) (Auto) 0, Neutrophils # (Auto) 6.6, Lymphocytes # (Auto) 0.3, Monocytes # (Auto) 0.2, Eosinophils # (Auto) 0.0, Basophils # (Auto) 0.0, Sodium Level 141, Potassium Level 4.9, Chloride Level 105, Carbon Dioxide Level 25, Anion Gap 11, Blood Urea Nitrogen 59, Creatinine 1.91, Estimat Glomerular Filtration Rate 26, BUN/Creatinine Ratio 31, Glucose Level 201, Calcium Level 8.5, Phosphorus Level 3.6, Magnesium Level 2.2 06/12/19 03:45: Blood Gas Puncture Site RT RADIAL, Blood Gas Patient Temperature 36.3, Arterial Blood pH 7.34, Arterial Blood Partial Pressure CO2 56, Arterial Blood Partial Pressure O2 82, Arterial Blood HCO3 30, Arterial Blood Total CO2 31.7, Arterial Blood Oxygen Saturation 97, Arterial Blood Base Excess 4.4, Clif Test YES-POS, Blood Gas Ventilator Setting NO, Blood Gas Inspired Oxygen 30% 06/12/19 11:12: Glucometer 202 06/12/19 11:17: Methylmalonic Acid 0.86 06/12/19 16:14: Glucometer 186 06/12/19 20:40: Glucometer 188 06/13/19 03:14: White Blood Count 6.6, Red Blood Count 3.14, Hemoglobin 8.9, Hematocrit 30, Mean Corpuscular Volume 96, Mean Corpuscular Hemoglobin 28, Mean Corpuscular Hemoglobin Concent 30, Red Cell Distribution Width 14.9, Platelet Count 94, Mean Platelet Volume 11.6, Neutrophils (%) (Auto) 91, Lymphocytes (%) (Auto) 5, Monocytes (%) (Auto) 4, Eosinophils (%) (Auto) 0, Basophils (%) (Auto) 0, Neutrophils # (Auto) 6.0, Lymphocytes # (Auto) 0.3, Monocytes # (Auto) 0.3, Eosinophils # (Auto) 0.0, Basophils # (Auto) 0.0, Neutrophils % (Manual) 89, Lymphocytes % (Manual) 7, Monocytes % (Manual) 4, Sodium Level 140, Potassium Level 4.6, Chloride Level 105, Carbon Dioxide Level 25, Anion Gap 10, Blood Urea Nitrogen 55, Creatinine 1.58, Estimat Glomerular Filtration Rate 32, BUN/C reatinine Ratio 35, Glucose Level 163, Calcium Level 8.4, Phosphorus Level 3.5, Magnesium Level 2.2 06/13/19 10:31: Blood Gas Puncture Site RR, Blood Gas Patient Temperature 36.8, Arterial Blood pH 7.35, Arterial Blood Partial Pressure CO2 55, Arterial Blood Partial Pressure O2 60, Arterial Blood HCO3 30, Arterial Blood Total CO2 31.5, Arterial Blood Oxygen Saturation 93, Arterial Blood Base Excess 4.5, Clif Test YES-POS, Blood Gas Ventilator Setting NO, Blood Gas Inspired Oxygen 40% 06/13/19 11:01: Glucometer 187 06/13/19 12:29: Glucometer 186 06/13/19 15:50: Glucometer 252 06/13/19 20:46: Glucometer 213 06/14/19 03:40: White Blood Count 8.7, Red Blood Count 3.38, Hemoglobin 9.4, Hematocrit 32, Mean Corpuscular Volume 95, Mean Corpuscular Hemoglobin 28, Mean Corpuscular Hemoglobin Concent 29, Red Cell Distribution Width 15.3, Platelet Count 107, Mean Platelet Volume 11.1, Neutrophils (%) (Auto) 95, Lymphocytes (%) (Auto) 3, Monocytes (%) (Auto) 2, Eosinophils (%) (Auto) 0, Basophils (%) (Auto) 0, Neutrophils # (Auto) 8.2, Lymphocytes # (Auto) 0.2, Monocytes # (Auto) 0.2, Eosinophils # (Auto) 0.0, Basophils # (Auto) 0.0, Sodium Level 140, Potassium Level 5.0, Chloride Level 104, Carbon Dioxide Level 25, Anion Gap 11, Blood Urea Nitrogen 52, Creatinine 1.52, Estimat Glomerular Filtration Rate 34, BUN/Creatinine Ratio 34, Glucose Level 198, Calcium Level 8.2, Phosphorus Level 3.4, Magnesium Level 2.3 06/14/19 11:05: Glucometer 159 06/14/19 15:52: Glucometer 227 06/14/19 20:05: Glucometer 176 06/15/19 03:49: White Blood Count 10.4, Red Blood Count 3.33, Hemoglobin 9.3, Hematocrit 32, Mean Corpuscular Volume 96, Mean Corpuscular Hemoglobin 28, Mean Corpuscular H emoglobin Concent 29, Red Cell Distribution Width 15.4, Platelet Count 116, Mean Platelet Volume 11.4, Neutrophils (%) (Auto) 96, Lymphocytes (%) (Auto) 2, Monocytes (%) (Auto) 1, Eosinophils (%) (Auto) 0, Basophils (%) (Auto) 0, Neutrophils # (Auto) 10.0, Lymphocytes # (Auto) 0.2, Monocytes # (Auto) 0.2, Eosinophils # (Auto) 0.0, Basophils # (Auto) 0.0, Sodium Level 140, Potassium Level 5.3, Chloride Level 104, Carbon Dioxide Level 28, Anion Gap 8, Blood Urea Nitrogen 51, Creatinine 1.31, Estimat Glomerular Filtration Rate 40, BUN/Creatinine Ratio 39, Glucose Level 203, Calcium Level 8.3, Phosphorus Level 3.2, Magnesium Level 2.3 06/15/19 11:32: Glucometer 111 06/15/19 16:30: Glucometer 170 06/15/19 21:06: Glucometer 285 06/16/19 04:30: White Blood Count 8.7, Red Blood Count 3.23, Hemoglobin 9.1, Hematocrit 31, Mean Corpuscular Volume 96, Mean Corpuscular Hemoglobin 28, Mean Corpuscular Hemoglobin Concent 29, Red Cell Distribution Width 16.0, Platelet Count 111, Mean Platelet Volume 11.4, Neutrophils (%) (Auto) 91, Lymphocytes (%) (Auto) 5, Monocytes (%) (Auto) 4, Eosinophils (%) (Auto) 0, Basophils (%) (Auto) 0, Neutrophils # (Auto) 7.9, Lymphocytes # (Auto) 0.4, Monocytes # (Auto) 0.4, Eosinophils # (Auto) 0.0, Basophils # (Auto) 0.0, Sodium Level 141, Potassium Level 5.2, Chloride Level 104, Carbon Dioxide Level 28, Anion Gap 9, Blood Urea Nitrogen 52, Creatinine 1.45, Estimat Glomerular Filtration Rate 36, BUN/Creatinine Ratio 36, Glucose Level 145, Calcium Level 8.0, Phosphorus Level 2.9, Magnesium Level 2.2 06/16/19 11:18: Glucometer 297 06/16/19 16:06: Glucometer 172 06/16/19 20:46: Glucometer 164 06/17/19 05:53: Glucometer 110 06/17/19 11:26: Glucometer 179 06/17/19 12:15: White Blood Count 10.4, Red Blood Count 3.25, Hemoglobin 9.2, Hematocrit 32, Mean Corpuscular Volume 98, Mean Corpuscular Hemoglobin 28, Mean Corpuscular Hemoglobin Concent 29, Red Cell Distribution Width 16.0, Platelet Count 102, Mean Platelet Volume 12.3, Neutrophils (%) (Auto) 93, Lymphocytes (%) (Auto) 4, Monocytes (%) (Auto) 3, Eosinophils (%) (Auto) 1, Basophils (%) (Auto) 0, Neutrophils # (Auto) 9.7, Lymphocytes # (Auto) 0.4, Monocytes # (Auto) 0.3, Eosinophils # (Auto) 0.1, Basophils # (Auto) 0.0, Sodium Level 140, Potassium Level 5.5, Chloride Level 104, Carbon Dioxide Level 28, Anion Gap 8, Blood Urea Nitrogen 45, Creatinine 1.31, Estimat Glomerular Filtration Rate 40, BUN/Creatinine Ratio 34, Glucose Level 179, Calcium Level 8.0, Phosphorus Level 3.2, Magnesium Level 2.3 06/17/19 15:24: Glucometer 275 06/17/19 20:18: Glucometer 143 06/18/19 05:37: Glucometer 111 06/18/19 10:35: Glucometer 218 06/18/19 16:20: Glucometer 215 06/18/19 20:43: Glucometer 160 06/19/19 04:54: White Blood Count 10.4, Red Blood Count 3.23, Hemoglobin 9.1, Hematocrit 32, Mean Corpuscular Volume 100, Mean Corpuscular Hemoglobin 28, Mean Corpuscular Hemoglobin Concent 28, Red Cell Distribution Width 16.3, Platelet Count 115, Me an Platelet Volume 12.0, Neutrophils (%) (Auto) 86, Lymphocytes (%) (Auto) 7, Monocytes (%) (Auto) 6, Eosinophils (%) (Auto) 1, Basophils (%) (Auto) 0, Neutrophils # (Auto) 8.9, Lymphocytes # (Auto) 0.8, Monocytes # (Auto) 0.6, Eosinophils # (Auto) 0.1, Basophils # (Auto) 0.0, Sodium Level 141, Potassium Level 5.3, Chloride Level 105, Carbon Dioxide Level 28, Anion Gap 8, Blood Urea Nitrogen 45, Creatinine 1.52, Estimat Glomerular Filtration Rate 34, BUN/Creatinine Ratio 30, Glucose Level 127, Calcium Level 8.1, Corrected Calcium 8.7, Total Bilirubin 0.3, Aspartate Amino Transf (AST/SGOT) 11, Alanine Aminotransferase (ALT/SGPT) 14, Alkaline Phosphatase 68, Total Protein 5.5, Albumin 3.2 06/19/19 05:09: Glucometer 121 06/19/19 11:31: Glucometer 237 06/19/19 16:19: Glucometer 193 06/19/19 20:35: Glucometer 124 06/20/19 04:41: White Blood Count 8.0, Red Blood Count 3.09, Hemoglobin 8.7, Hematocrit 31, Mean Corpuscular Volume 101, Mean Corpuscular Hemoglobin 28, Mean Corpuscular Hemo globin Concent 28, Red Cell Distribution Width 16.4, Platelet Count 100, Mean Platelet Volume 12.0, Neutrophils (%) (Auto) 84, Lymphocytes (%) (Auto) 9, Monocytes (%) (Auto) 6, Eosinophils (%) (Auto) 1, Basophils (%) (Auto) 0, Neutrophils # (Auto) 6.7, Lymphocytes # (Auto) 0.7, Monocytes # (Auto) 0.5, Eosinophils # (Auto) 0.1, Basophils # (Auto) 0.0, Sodium Level 141, Potassium Level 5.4, Chloride Level 105, Carbon Dioxide Level 27, Anion Gap 9, Blood Urea Nitrogen 41, Creatinine 1.37, Estimat Glomerular Filtration Rate 38, BUN/Creatinine Ratio 30, Glucose Level 108, Calcium Level 7.9 06/20/19 05:09: Glucometer 105 06/20/19 11:05: Glucometer 253 Discussion & Recommendations To be followed up in the office next week Discharge Home Medications: Active Scripts Active Cefdinir 300 Mg Capsule 300 Mg PO BID 5 Days Reported Skin Protectant (Zinc Oxide) 113 Gm Cream..g. TP TID Garlic 1,000 Mg Capsule 1,000 Mg PO DAILY Nyamyc (Nystatin) 15 Gm Powder TOP BID PRN Vitamin D3 (Cholecalciferol (Vitamin D3)) 2,000 Unit Capsule 2,000 Unit PO DAILY Torsemide 20 Mg Tablet 40 Mg PO DAILY TAKES 2 TABLETS (40MG) TABLETS Pantoprazole Sodium 40 Mg Tablet.dr 40 Mg PO DAILY Glucosamine (Glucosamine Sulfate 2Kcl) 1,000 Mg Tablet 1,000 Mg PO BID Iprat-Albut 0.5-3(2.5) mg/3 ml (Ipratropium/Albuterol Sulfate) 3 Ml Ampul.neb 3 Ml NEB QID Tylenol (Acetaminophen) 325 Mg Tablet 650 Mg PO Q4H PRN TAKES 2 (325MG) TABLETS Mucinex (Guaifenesin) 600 Mg Tab.er.12h 600 Mg PO Q12H PRN Fish Oil 1,000 mg Capsule ([place] 3 Polyunsat Fatty Acids) 1,000 Mg Cap 1,000 Mg PO DAILY Acetazolamide 250 Mg Tablet 250 Mg PO DAILY Natural Balance Tears Eye Drop (Dextran 70/Hypromellose) 15 Ml Drops 2 Drops OU Q4H PRN Chlorophyll 20 mg Tablet (Chlorophyllin/[place]) 1 Each Tablet 1 Tab PO BID Levothyroxine Sodium 175 Mcg Tablet 175 Mcg PO DAILY Mylanta Suspension (Al Hydrox/Mg Hydrox/Simethicone) 30 Ml Oral.susp 30 Ml PO UD PRN Daily Vitamin Formula (Multivitamin) 1 Each Tablet 1 Tab PO DAILY Allopurinol 100 Mg Tablet 100 Mg PO DAILY Hydrocodone/Acetaminophen 5/325mg Tablet (Acetaminophen/Hydrocodone Bitart) 1 Each Tablet 1 Tab PO BID Symbicort 160-4.5 Mcg Inhaler (Budesonide/Formoterol Fumarate) 10.2 Gm Hfa.aer.ad 2 Puff INH BID Metoprolol Tartrate 25 Mg Tablet 25 Mg PO BID HOLD FOR SBP<100, DBP <50, OR PULSE <60 Instructions to patient/family Please see electronic discharge instructions given to patient. Clinical Quality Measures DVT/VTE Risk/Contraindication: Risk Factor Score Per Nursin RFS Level Per Nursing on Admit: 4+=Very High AURORA STACK DO Jun 23, 2019 07:35
== END 2019-06-20 12:00 | DRG 193 ==
LOC: EDUNIT# 12:01 → ER 12:02 → 4TH 14:54 → ER 15:31 → ICU 19:01 → CSD 06-13 13:30 → 4TH 06-15 18:06
PROVIDERS: ADMIT Internal Medicine; ATTEND Internal Medicine
PROC: 5A09557 Assistance with Respiratory Ventilation, Greater than 96 Consecutive Hours, Continuous Positive Airway Pressure (ICD-10-PCS; principal; 2019-06-06)
DX: J18.9 Pneumonia, unspecified organism (principal); J96.02 Acute respiratory failure with hypercapnia; G93.41 Metabolic encephalopathy; J44.1 Chronic obstructive pulmonary disease with (acute) exacerbation; J44.0 Chronic obstructive pulmonary disease with (acute) lower respiratory infection; N17.9 Acute kidney failure, unspecified; I13.0 Hypertensive heart and chronic kidney disease with heart failure and stage 1 through stage 4 chronic kidney disease, or unspecified chronic kidney disease; I50.32 Chronic diastolic (congestive) heart failure; E87.0 Hyperosmolality and hypernatremia; Z68.41 Body mass index [BMI] 40.0-44.9, adult; N18.9 Chronic kidney disease, unspecified; E11.40 Type 2 diabetes mellitus with diabetic neuropathy, unspecified; E66.01 Morbid (severe) obesity due to excess calories; D64.9 Anemia, unspecified; J30.2 Other seasonal allergic rhinitis; E03.9 Hypothyroidism, unspecified; I87.8 Other specified disorders of veins; K21.9 Gastro-esophageal reflux disease without esophagitis; I48.91 Unspecified atrial fibrillation; E78.00 Pure hypercholesterolemia, unspecified; M54.9 Dorsalgia, unspecified; M19.91 Primary osteoarthritis, unspecified site; F41.9 Anxiety disorder, unspecified; F32.9 Major depressive disorder, single episode, unspecified; Z87.891 Personal history of nicotine dependence; Z87.440 Personal history of urinary (tract) infections
CPT/HCPCS: 36415; 36600; 71045; 80048; 80053; 81000; 82274; 82607; 82805; 82962; 83090; 83605; 83735; 83880; 83921; 84100; 84145; 84425; 85007; 85025; 85027; 86850; 86900; 86901; 87040; 87804; 93005; 93306; 94640; 94660; 94760; 96374

== ENCOUNTER 2019-06-26 15:30 | Inpatient (IN) | payer MEDICARE ==
[~2019-06-26] VITALS: Ht 162 cm; Wt 121.7 kg
[~2019-06-26 15:30] MED LIST changes: +CEFD300C3 PO; +DOXY100T2 PO; +ETOMIDATE IV SOLN 20 MG/10 ML VIAL IV ONE; +ROCURONIUM 10 MG/ML 5 ML SYRINGE IV ONE
--- NOTE | 2019-06-26 15:56 | ED Neurological Problem ---
General Chief Complaint: Altered Mental Status Stated Complaint: ALT MENTAL STATUS Source: patient, EMS, correction records Exam Limitations: clinical condition History of Present Illness Date Seen by Provider: Jun 26, 2019 Time Seen by Provider: 15:53 Initial Comments This 68-year-old female presents with an altered mental status from the correction today. Patient according to the nursing staff was retaining CO2 precipitating her transfer to the emergency department. Patient has a history of COPD. She is under the care of Dr. Rodrigez. Patient denies chest pain, fever, chills, headache, stiff neck, or photophobia. The patient is unable to offer a particularly helpful history. She appears to be a oriented and answers questions in an appropriate fashion. Allergies and Home Medications Allergies Coded Allergies: ondansetron (Verified Allergy, Unknown, 05/14/19) risperidone (Verified Allergy, Unknown, 10/16/18) simvastatin (Unverified Adverse Reaction, Unknown, 04/20/14) Home Medications Acetaminophen 325 Mg Tablet, 650 MG PO Q4H PRN for PAIN-MILD, (Reported) TAKES 2 (325MG) TABLETS Acetazolamide 250 Mg Tablet, 250 MG PO DAILY, (Reported) Allopurinol 100 Mg Tablet, 100 MG PO DAILY, (Reported) Budesonide/Formoterol Fumarate 10.2 Gm Hfa.aer.ad, 2 PUFF INH BID, (Reported) Cefdinir 300 Mg Capsule, 300 MG PO BID Prescribed by: AURORA STACK on 06/20/19 0830 Chlorophyllin/[place] 1 Each Tablet, 1 TAB PO BID, (Reported) Cholecalciferol (Vitamin D3) 2,000 Unit Capsule, 2,000 UNIT PO DAILY, (Reported) Dextran 70/Hypromellose 15 Ml Drops, 2 DROPS OU Q4H PRN for DRY EYES, (Reported) Garlic 1,000 Mg Capsule, 1,000 MG PO DAILY, (Reported) Glucosamine Sulfate 2Kcl 1,000 Mg Tablet, 1,000 MG PO BID, (Reported) Guaifenesin 600 Mg Tab.er.12h, 600 MG PO Q12H PRN for CONGESTION, (Reported) Hydrocodone Bit/Acetaminophen 1 Each Tablet, 1 TAB PO BID, (Reported) Ipratropium/Albuterol Sulfate 3 Ml Ampul.neb, 3 ML NEB QID, (Reported) Levothyroxine Sodium 175 Mcg Tablet, 175 MCG PO DAILY, (Reported) Mag Hydrox/Al Hydrox/Simeth 30 Ml Oral.susp, 30 ML PO UD PRN for INDIGESTION, (Reported) Metoprolol Tartrate 25 Mg Tablet, 25 MG PO BID, (Reported) HOLD FOR SBP<100, DBP <50, OR PULSE <60 Multivitamin 1 Each Tablet, 1 TAB PO DAILY, (Reported) Nystatin 15 Gm Powder, TOP BID PRN for IRRITATION, (Reported) [place] 3 Polyunsat Fatty Acids 1,000 Mg Cap, 1,000 MG PO DAILY, (Reported) Pantoprazole Sodium 40 Mg Tablet.dr, 40 MG PO DAILY, (Reported) Torsemide 20 Mg Tablet, 40 MG PO DAILY, (Reported) TAKES 2 TABLETS (40MG) TABLETS Zinc Oxide 113 Gm Cream..g., TP TID, (Reported) Patient Home Medication List Home Medication List Reviewed: Yes Review of Systems Review of Systems Constitutional: No chills, No fever Eyes: No Symptoms Reported Ears, Nose, Mouth, Throat: no symptoms reported Respiratory: see HPI, cough, short of breath Cardiovascular: No chest pain Gastrointestinal: No abdominal pain, No nausea, No vomiting Genitourinary: no symptoms reported Musculoskeletal: No no symptoms reported Skin: no symptoms reported; No rash Psychiatric/Neurological: Anxiety, Cognitive Dysfunction Endocrine: No Symptoms Reported Hematologic/Lymphatic: No Symptoms Reported Past Ibrrqjo-Ddthdd-Ijlmfn Hx Past Med/Social Hx: Reviewed Nursing Past Med/Soc Hx Patient Social History Type Used: Cigarettes Recent Foreign Travel: No Contact w/Someone Who Travel: No Recent Hopitalizations: No Immunizations Up To Date Tetanus Booster (TDap): More than 5yrs Date of Pneumonia Vaccine: Jul 17, 2018 Date of Influenza Vaccine: Mar 10, 2019 Seasonal Allergies Seasonal Allergies: Yes Past Medical History Surgeries: Yes Eye Surgery, Hysterectomy, Oophorectomy, Orthopedic, Tracheostomy Respiratory: Yes Asthma, Pneumonia, COPD Currently Using CPAP: No Currently Using BIPAP: No Cardiac: Yes (PERICARDIAL WINDOW 1993) Atrial Fibrillation, Chronic Edema/Swelling, High Cholesterol, Hypertension Neurological: Yes (NEUROPATHY IN FEET) Neuropathy 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 Disorders: Yes (ENDOMETRIAL HYPERPLASIA) 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, 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 Sexually Transmitted Disease: No Genitourinary: Yes (ON DIALYSIS WHILE SICK WITH PNEUMONIA/MULTIORGAN FAILURE) Renal Failure Gastrointestinal: Yes Abdominal Hernia, Gastroesophageal Reflux Musculoskeletal: Yes Arthritis, Chronic Back Pain Endocrine: Yes (MORBID OBESITY) Hypothyroidsim HEENT: Yes (HX OF TRACH; LEFT EYE SURGERY) Tinnitis Cancer: No Psychosocial: Yes Anxiety, Depression Integumentary: Yes (LEG ULCERS; VENOUS STASIS ) Blood Disorders: Yes (ANEMIA) Adverse Reaction/Blood Tranf: No Family Medical History Alzheimer's disease Arthritis Asthma Completed stroke Dementia Diabetes mellitus Glaucoma Hypertension Kidney disease Myocardial infarction Psychosocial problem Respiratory disorder Severe allergy Thyroid disease Visual disorder No Family History of: AIDS Abdominal aortic aneurysm Jae's disease Alcoholism Aphasia Cancer of mouth Cardiovascular disease Cataracts Colon cancer Congenital disease Congenital heart disease Coronary thrombosis Cystic fibrosis Deafness or hearing loss Drug abuse Dysphasia Fibrocystic disease of breast Gastroenteritis Headache disorder Hypercholesterolemia Infertility Neoplasm Not obtainable due to adoption Osteoporosis Parkinson's disease Prostate cancer Seizure disorder Tuberculosis No Pertinent Family Hx Physical Exam Vital Signs Vital Signs - First Documented 06/26/19 06/26/19 15:47 16:48 Temp 36.6 Pulse 84 Resp 18 B/P (MAP) 138/65 (89) Pulse Ox 97 O2 Delivery High Flow N/C O2 Flow Rate 3.00 Capillary Refill : Height, Weight, BMI Height: 5'4.00" Weight: 246lbs. 2.0oz. 111.342321ts; 39.51 BMI Method:Stated General Appearance: WD/WN, mild distress HEENT: normal ENT inspection Neck: normal inspection Respiratory: decreased breath sounds Cardiovascular: regular rate, rhythm; No no murmur Gastrointestinal: normal bowel sounds, non tender, soft Back: normal inspection Extremities: normal range of motion, non-tender, normal inspection Neurologic/Psychiatric: no motor/sensory deficits Motor/Sensory: no motor deficit, no sensory deficit Skin: normal color, warm/dry Progress/Results/Core Measures Results/Orders Lab Results Laboratory Tests Test 06/26/19 15:36 06/26/19 17:12 Range/Units White Blood Count 7.3 4.3-11.0 10^3/uL Red Blood Count 3.01 L 4.35-5.85 10^6/uL Hemoglobin 8.5 L 11.5-16.0 G/DL Hematocrit 32 L 35-52 % Mean Corpuscular Volume 107 H 80-99 FL Mean Corpuscular Hemoglobin 28 25-34 PG Mean Corpuscular Hemoglobin Concent 27 L 32-36 G/DL Red Cell Distribution Width 15.9 H 10.0-14.5 % Platelet Count 46 L 130-400 10^3/uL Mean Platelet Volume 11.4 H 7.4-10.4 FL Neutrophils (%) (Auto) 85 H 42-75 % Lymphocytes (%) (Auto) 10 L 12-44 % Monocytes (%) (Auto) 3 0-12 % Eosinophils (%) (Auto) 2 0-10 % Basophils (%) (Auto) 0 0-10 % Neutrophils # (Auto) 6.2 1.8-7.8 X 10^3 Lymphocytes # (Auto) 0.7 L 1.0-4.0 X 10^3 Monocytes # (Auto) 0.2 0.0-1.0 X 10^3 Eosinophils # (Auto) 0.1 0.0-0.3 10^3/uL Basophils # (Auto) 0.0 0.0-0.1 10^3/uL Sodium Level 145 135-145 MMOL/L Potassium Level 5.6 H 3.6-5.0 MMOL/L Chloride Level 107 98-107 MMOL/L Carbon Dioxide Level 28 21-32 MMOL/L Anion Gap 10 5-14 MMOL/L Blood Urea Nitrogen 39 H 7-18 MG/DL Creatinine 2.20 H 0.60-1.30 MG/DL Estimat Glomerular Filtration Rate 22 BUN/Creatinine Ratio 18 Glucose Level 150 H 70-105 MG/DL Calcium Level 8.8 8.5-10.1 MG/DL Corrected Calcium 9.3 8.5-10.1 MG/DL Total Bilirubin 0.3 0.1-1.0 MG/DL Aspartate Amino Transf (AST/SGOT) 10 5-34 U/L Alanine Aminotransferase (ALT/SGPT) 23 0-55 U/L Alkaline Phosphatase 116 40-136 U/L Total Protein 6.6 6.4-8.2 GM/DL Albumin 3.4 3.2-4.5 GM/DL Blood Gas Puncture Site RR Blood Gas Patient Temperature 97.9 Arterial Blood pH 7.23 *L 7.37-7.43 Arterial Blood Partial Pressure CO2 78 *H 35-45 MMHG Arterial Blood Partial Pressure O2 115 H 79-93 MMHG Arterial Blood HCO3 31 H 23-27 MMOL/L Arterial Blood Total CO2 33.7 H 21.0-31.0 MMOL/L Arterial Blood Oxygen Saturation 99 94-100 % Arterial Blood Base Excess 4.1 H -2.5-2.5 MMOL/L Clif Test YES-POS Blood Gas Ventilator Setting NO Blood Gas Inspired Oxygen 3L My Orders Orders - GISELLE PADILLA MD Cbc With Automated Diff (06/26/19 15:50) Comprehensive Metabolic Panel (06/26/19 15:50) Chest Pa/Lat (2 View) (06/26/19 15:50) Ua Culture If Indicated (06/26/19 15:50) Ns Iv 1000 Ml (Sodium Chloride 0.9%) (06/26/19 16:00) Albuterol/Ipra Inhalation Soln (Duoneb I (06/26/19 16:00) Svn Small Volume Nebulizer (06/26/19 15:51) Arterial Blood Gas (06/26/19 17:13) Blood Culture (06/26/19 17:43) Lactic Acid Analyzer (06/26/19 17:43) Ceftriaxone For Iv Use (Rocephin For I (06/26/19 17:45) Azithromycin Injection (Zithromax Inject (06/26/19 17:45) Lorazepam Injection (Ativan Injection) (06/26/19 18:15) Medications Given in ED Current Medications Medications Dose Ordered Sig/Inderjit Route Start Time Stop Time Status Last Admin Dose Admin Albuterol/ Ipratropium 3 ml ONCE ONCE INH 06/26/19 16:00 06/26/19 16:01 DC 06/26/19 16:48 3 ML Azithromycin 500 mg/Sodium Chloride 250 ml @ 250 mls/hr ONCE ONCE IV 06/26/19 17:45 06/26/19 18:44 06/26/19 18:21 250 MLS/HR Ceftriaxone Sodium 2000 mg/ Sterile Water 20 ml @ 240 mls/hr ONCE ONCE IV 06/26/19 17:45 06/26/19 17:51 DC 06/26/19 18:20 240 MLS/HR Lorazepam 1 mg ONCE ONCE IVP 06/26/19 18:15 06/26/19 18:16 DC 06/26/19 18:12 1 MG Vital Signs/I&O 06/26/19 06/26/19 06/26/19 15:47 16:48 17:53 Temp 36.6 Pulse 84 90 Resp 18 25 B/P (MAP) 138/65 (89) Pulse Ox 97 100 93 O2 Delivery High Flow N/C O2 Flow Rate 3.00 28.00 Progress Progress Note : Time: 17:33 Progress Note Patient's chest x-ray demonstrated left lower lobe infiltrate. Patient's ABGs demonstrated that he was retaining CO2. Consultation was undertaken with Dr. Rodrigez was kind enough to admit patient. Consult was placed to Dr. Arrieta. Departure Communication (Admissions) Time/Spoke to Admitting Phy: 18:42 Dr. Stack Time/Spoke to Consulting Phy: 18:42 Dr. Arrieta Impression Primary Impression: COPD with acute exacerbation Additional Impression: Left lower lobe pneumonia Qualified Codes: J18.1 - Lobar pneumonia, unspecified organism Disposition: ADMITTED INPATIENT Condition: Improved Admissions Decision to Admit Reason: Admit from ER (General) Decision to Admit/Date: Jun 26, 2019 Time/Decision to Admit Time: 18:43 Departure-Patient Inst. Referrals: AURORA STACK DO (PCP/Family) Primary Care Physician GISELLE PADILLA MD Jun 26, 2019 15:56
[2019-06-26 15:58] LABS: BASOPHILS % (AUTO) 0 % (0-10); EOSINOPHILS # (AUTO) 0.1 10^3/uL (0.0-0.3); EOSINOPHILS % (AUTO) 2 % (0-10); HEMATOCRIT 32 % (35-52); HEMOGLOBIN 8.5 G/DL (11.5-16.0); LYMPHOCYTES # (AUTO) 0.7 X 10^3 (1.0-4.0); LYMPHOCYTES % (AUTO) 10 % (12-44); MEAN CORPUSCULAR HEMOGLOBIN 28 PG (25-34); MEAN CORPUSCULAR HGB CONC 27 G/DL (32-36); MEAN CORPUSCULAR VOLUME 107 FL (80-99); MEAN PLATELET VOLUME 11.4 FL (7.4-10.4); MONOCYTES # (AUTO) 0.2 X 10^3 (0.0-1.0); MONOCYTES % (AUTO) 3 % (0-12); NEUTROPHILS # (AUTO) 6.2 X 10^3 (1.8-7.8); NEUTROPHILS % (AUTO) 85 % (42-75); PLATELET COUNT 46 10^3/uL (130-400); RED CELL DISTRIBUTION WIDTH 15.9 % (10.0-14.5); WHITE BLOOD COUNT 7.3 10^3/uL (4.3-11.0)
[2019-06-26] MEDS ORDERED: RT-ALBUTEROL/IPRATROPIUM 3 ML (DUONEB) VIAL INH ONE (16:00)
[2019-06-26 16:14] LABS: ALBUMIN 3.4 GM/DL (3.2-4.5); BILIRUBIN,TOTAL 0.3 MG/DL (0.1-1.0); CALCIUM 8.8 MG/DL (8.5-10.1); CREATININE SERUM 2.2 MG/DL (0.60-1.30); POTASSIUM 5.6 MMOL/L (3.6-5.0); TOTAL PROTEIN 6.6 GM/DL (6.4-8.2)
[2019-06-26] MEDS: NS IV 1000 ML 1,000 ML IV SCH (16:40)
--- NOTE | 2019-06-26 16:41 | Diagnostic Imaging Report ---
INDICATION: Altered mental status. EXAM: PA and lateral chest FINDINGS: The heart is mildly enlarged. Pulmonary vascularity is normal. There appears to be some infiltrate in the retrocardiac region of the left lower lung. The right lung is clear. IMPRESSION: Patchy area of consolidation in the left lung base suspicious for pneumonia. Dictated by: Dictated on workstation # [id number]
[2019-06-26 17:19] LABS: ABG BASE EXCESS 4.1 MMOL/L (-2.5-2.5); ABG OXYGEN SATURATION 99 % (94-100); ABG PO2 115 MMHG (79-93); ABG TCO2 33.7 MMOL/L (21.0-31.0)
[2019-06-26 17:20] LABS: ALLENS TEST YES-POS; INSPIRED O2 3L; PATIENT TEMP 97.9; VENTILATOR NO
[2019-06-26 17:26] LABS: ABG PH 7.23 (7.37-7.43)
[2019-06-26 17:27] LABS: ABG PCO2 78 MMHG (35-45)
[2019-06-26] MEDS ORDERED: AZITHROMYCIN INJECTION 500 MG in NS (IVPB) 250 ML IV ONE (17:45)
[2019-06-26] MEDS ORDERED: cefTRIAXone FOR IV USE 2,000 MG in WATER (STERILE) FOR INJECTION 20 ML IV ONE (17:45)
[2019-06-26] MEDS ORDERED: LORazepam INJ 2 MG/ML (ATIVAN) VIAL IVP ONE (18:15)
[2019-06-26] MEDS ORDERED: methylPREDNISolone 125 MG (Solu-MEDROL) VIAL IVP ONE (19:00)
[2019-06-26 19:21] LABS: ABG BASE EXCESS 3.9 MMOL/L (-2.5-2.5); ABG OXYGEN SATURATION 91 % (94-100); ABG PCO2 67 MMHG (35-45); ABG PO2 58 MMHG (79-93); ABG TCO2 32.4 MMOL/L (21.0-31.0)
[2019-06-26 19:22] LABS: ABG PH 7.28 (7.37-7.43); ALLENS TEST positive; INSPIRED O2 35%; PATIENT TEMP 36.6; VENTILATOR YES
--- NOTE | 2019-06-26 20:30 | NUR ---
Pt uncooperative and pulling bipap mask off. Pt's sat dropped to 59%. Dr. Wilde notified.
[2019-06-26] MEDS ORDERED: PROPOFOL DRIP (ICU) 100 ML IV ONE (21:09)
--- NOTE | 2019-06-26 21:15 | NUR ---
2049 RT; Dr. Wilde; Mariel, RN; Leonor, RN in room for intubation vitals 97 P, 92% on bipap, 112/69 BP 2099 40 mg etomidate administered by SHAHRIAR Floyd 2101 Pt bagged and O2 sat 97% 2103 75 mg Gerry administered by SHAHRIAR Floyd O2 100% and pt bagged at this time 2105 tube in 26 cm at the teeth O2 100% 16 fr OG tube inserted
[2019-06-26] MEDS: PROPOFOL INJECTION 50 ML IV SCH (21:21)
[2019-06-26 21:23] VITALS: BP_SYST 25
--- NOTE | 2019-06-26 21:35 | Diagnostic Imaging Report ---
INDICATION: ET tube placement. COMPARISON: 06/26/2019 at 4:23 p.m. EXAMINATION: Single view of the chest was obtained. FINDINGS: ET tube just within the right mainstem bronchus. The NG tube is in the stomach. The heart remains prominent. There is slight central vascular congestion. There is no pneumothorax or large effusion. IMPRESSION: 1. ET tube just within the right mainstem bronchus. Recommend withdrawing 2-3 cm. 2. Cardiac enlargement with central vascular congestion. 3. No pneumothorax. Dictated by: Dictated on workstation # [id number]
[2019-06-26 21:56] LABS: BILIRUBIN,URINE NEGATIVE (NEGATIVE); CLARITY,URINE CLEAR; COLOR,URINE YELLOW; GLUCOSE, URINE (UA) NEGATIVE (NEGATIVE); KETONES,URINE NEGATIVE (NEGATIVE); LEUKOCYTE ESTERASE ,URINE NEGATIVE (NEGATIVE); NITRITE,URINE NEGATIVE (NEGATIVE); PROTEIN,URINE 1+ (NEGATIVE)
--- NOTE | 2019-06-26 22:01 | NUR ---
40 mg propofol administered per Dr. Wilde
[2019-06-26 22:35] LABS: BACTERIA,URINE TRACE /HPF; WBC,URINE 0-2 /HPF
--- NOTE | 2019-06-26 22:45 | NUR ---
Tube moved to 23 cm at the teeth by RT.
[2019-06-26 22:50] LABS: ABG BASE EXCESS 1.8 MMOL/L (-2.5-2.5); ABG OXYGEN SATURATION 96 % (94-100); ABG PCO2 63 MMHG (35-45); ABG PO2 70 MMHG (79-93); ABG TCO2 30.1 MMOL/L (21.0-31.0)
[2019-06-26 22:55] LABS: ABG PH 7.27 (7.37-7.43)
[2019-06-26 23:00] LABS: ALLENS TEST POS; PATIENT TEMP 36.6; VENTILATOR YES
[2019-06-26 23:01] LABS: INSPIRED O2 40%
--- NOTE | 2019-06-26 23:35 | NUR ---
Report received from SHAHRIAR Galvez at this time to assume pt of care until transfer.
--- NOTE | 2019-06-26 23:45 | NUR ---
Report given to SHAHRIAR Palacios
--- NOTE | 2019-06-26 23:51 | NUR ---
SHAHRIAR Kam at [facility] called with update on pt's status.
[2019-06-27] VITALS (17 sets, daily range): BP systolic 106–164; BP diastolic 51–99
[2019-06-27] MEDS ORDERED: PROPOFOL DRIP (ICU) 100 ML IV ONE ×2 (00:55→04:00)
[2019-06-27] MEDS: PROPOFOL INJECTION 50 ML IV SCH ×2 (00:59→04:43)
[2019-06-27] MEDS: NS IV 1000 ML 1,000 ML IV SCH (02:00)
--- NOTE | 2019-06-27 02:23 | NUR ---
Pt is still sedated, no changes in pt's status at this time
--- NOTE | 2019-06-27 02:50 | NUR ---
Oral secretions present, suctioned out at this time. RT here to draw repeat ABG
[2019-06-27 03:05] LABS: ABG BASE EXCESS -0.3 MMOL/L (-2.5-2.5); ABG OXYGEN SATURATION 96 % (94-100); ABG PCO2 47 MMHG (35-45); ABG PO2 76 MMHG (79-93); ABG TCO2 26.3 MMOL/L (21.0-31.0)
[2019-06-27 03:27] LABS: ABG PH 7.34 (7.37-7.43); ALLENS TEST POSITIVE; INSPIRED O2 30%; PATIENT TEMP 36.6; VENTILATOR YES
[2019-06-27] MEDS: PROPOFOL DRIP (ICU) 100 ML IV SCH ×6 (04:45→22:31)
[2019-06-27] MEDS ORDERED: 1/2 NS IV SOLUTION 1,000 ML IV ONE (04:59)
--- NOTE | 2019-06-27 05:10 | NUR ---
Profolol drip increased to 50mcg/kg/min at this time per Dr. Wilde's order. Now running at 33.3 ml/hr.
[2019-06-27 05:35] LABS: BASOPHILS % (AUTO) 0 % (0-10); EOSINOPHILS % (AUTO) 0 % (0-10); HEMATOCRIT 29 % (35-52); HEMOGLOBIN 7.8 G/DL (11.5-16.0); LYMPHOCYTES # (AUTO) 0.2 X 10^3 (1.0-4.0); LYMPHOCYTES % (AUTO) 3 % (12-44); MEAN CORPUSCULAR HEMOGLOBIN 28 PG (25-34); MEAN CORPUSCULAR HGB CONC 27 G/DL (32-36); MEAN CORPUSCULAR VOLUME 103 FL (80-99); MEAN PLATELET VOLUME 11.7 FL (7.4-10.4); MONOCYTES # (AUTO) 0.1 X 10^3 (0.0-1.0); MONOCYTES % (AUTO) 1 % (0-12); NEUTROPHILS # (AUTO) 6.1 X 10^3 (1.8-7.8); NEUTROPHILS % (AUTO) 96 % (42-75); PLATELET COUNT 54 10^3/uL (130-400); RED CELL DISTRIBUTION WIDTH 16.1 % (10.0-14.5); WHITE BLOOD COUNT 6.4 10^3/uL (4.3-11.0)
[2019-06-27 06:46] LABS: BILIRUBIN,TOTAL 0.2 MG/DL (0.1-1.0); CALCIUM 8.6 MG/DL (8.5-10.1); CREATININE SERUM 2.21 MG/DL (0.60-1.30); TOTAL PROTEIN 6.3 GM/DL (6.4-8.2)
--- NOTE | 2019-06-27 07:07 | NUR ---
Report given to SHAHRIAR Kenney at this time to assume care of pt
--- NOTE | 2019-06-27 07:07 | NUR ---
REPORT FROM ERIKA
--- NOTE | 2019-06-27 07:08 | Diagnostic Imaging Report ---
INDICATION: Recheck endotracheal tube placement. FINDINGS: Frontal view of the chest demonstrates an endotracheal tube approximately 2 cm above the monik. An orogastric tube transverses the radiograph. Cardiomegaly is stable. Mild congestion is again identified with a small left effusion. IMPRESSION: 1. Endotracheal tube is repositioned 2 cm above the monik. 2. Stable congestive heart failure. Dictated by: Dictated on workstation # [id number]
--- NOTE | 2019-06-27 07:16 | NUR ---
PT CONT TO BE ON VENT, SEDATION CONT. IV SITES WITHOUT SX OF INFECTION. LR AND OG IN PLACE, PT REPOSITIONED. VS HR 67, RR 18, BP 169/83.
[2019-06-27 07:18] LABS: POTASSIUM 6.6 MMOL/L (3.6-5.0)
[2019-06-27] MEDS ORDERED: FUROSEMIDE 40 MG/4 ML INJ (LASIX) IVP ONE (07:30)
[2019-06-27 07:46] LABS: HYPOCHROMASIA SLIGHT; LYMPHOCYTES % (MANUAL) 4 %; NEUTROPHILS % (MANUAL) 96 %
--- NOTE | 2019-06-27 07:58 | NUR ---
RITA FULLERFIED OF TRANSFER WHEN IN ED. [facility] CONTACTED FOR TRANSFER
--- NOTE | 2019-06-27 08:25 | NUR ---
[facility] NOTIFIED OF TRANSFER.
--- NOTE | 2019-06-27 08:40 | NUR ---
GROUP TESTER CALLED STATES ROOM IN ICU OPENED UP, PT ACCEPTED BY PCP AND DR PITT. [facility] NOTIFIED THAT TRANSFER WILL NOT BE REQUIRED
--- NOTE | 2019-06-27 08:42 | NUR ---
FAMILY NOTIFIED OF PT STAYING AT [facility]
--- NOTE | 2019-06-27 08:45 | NUR ---
BEN DREW NOTIFIED THAT PT WILL NOT BE TRANSFERRED
--- NOTE | 2019-06-27 09:04 | NUR ---
PT REPOSITIONED. PT CONT ON VENT. IV'S AND LR.
[2019-06-27] MEDS ORDERED: NS IV 1000 ML 1,000 ML IV SCH (12:00)
[2019-06-27] MEDS ORDERED: RT-ALBUTEROL/IPRATROPIUM 3 ML (DUONEB) VIAL IH PRN ×2 (12:00→12:45)
[2019-06-27] MEDS ORDERED: ACETAMINOPHEN 325 MG TABLET PO PRN (12:00)
[2019-06-27] MEDS ORDERED: ENOXAPARIN 40 MG/0.4 ML (LOVENOX) SYR SC SCH (12:00)
[2019-06-27] MEDS: LACTATED RINGERS 1,000 ML IV SCH ×2 (12:00→22:32)
[2019-06-27] MEDS ORDERED: LACTATED RINGERS 1,000 ML IV ONE (12:03)
[2019-06-27] MEDS ORDERED: ONDANSETRON 4 MG (ZOFRAN) ORAL DISSOLVE TAB PO PRN (12:15)
[2019-06-27] MEDS ORDERED: fentaNYL INJECTION 1,250 MCG in NORMAL SALINE 250 ML INJ PRN (12:15)
[2019-06-27] MEDS ORDERED: VANCOMYCIN 1,750 MG/NS 500 ML IVPB IV SCH ×2 (12:15)
[2019-06-27] MEDS ORDERED: PROPOFOL DRIP (ICU) 100 ML IV SCH (12:15)
--- NOTE | 2019-06-27 12:16 | Pulmonary Consultation ---
History of Present Illness History of Present Illness Date Seen by Provider: Jun 27, 2019 Time Seen by Provider: 12:11 Date of Admission History of Present Illness 68yo with hx of COPD presented to ED from [facility] secondary to worsening SOB and found to have acute respiratory failure while in ED. Pt's respiratory status continued to worsen and was intubated while in ED. All info obtained from chart since pt is sedated on vent. I am consulted for pulmonary management. Allergies and Home Medications Allergies Coded Allergies: ondansetron (Verified Allergy, Unknown, 05/14/19) risperidone (Verified Allergy, Unknown, 10/16/18) simvastatin (Unverified Adverse Reaction, Unknown, 04/20/14) Home Medications Acetaminophen 325 Mg Tablet, 650 MG PO Q4H PRN for PAIN-MILD, (Reported) TAKES 2 (325MG) TABLETS Acetazolamide 250 Mg Tablet, 250 MG PO DAILY, (Reported) Allopurinol 100 Mg Tablet, 100 MG PO DAILY, (Reported) Budesonide/Formoterol Fumarate 10.2 Gm Hfa.aer.ad, 2 PUFF INH BID, (Reported) Chlorophyllin/[place] 1 Each Tablet, 1 TAB PO BID, (Reported) Cholecalciferol (Vitamin D3) 2,000 Unit Capsule, 2,000 UNIT PO DAILY, (Reported) Dextran 70/Hypromellose 15 Ml Drops, 2 DROPS OU Q4H PRN for DRY EYES, (Reported) Garlic 1,000 Mg Capsule, 1,000 MG PO DAILY, (Reported) Glucosamine Sulfate 2Kcl 1,000 Mg Tablet, 1,000 MG PO BID, (Reported) Guaifenesin 600 Mg Tab.er.12h, 600 MG PO Q12H PRN for CONGESTION, (Reported) Hydrocodone Bit/Acetaminophen 1 Each Tablet, 1 TAB PO BID, (Reported) Ipratropium/Albuterol Sulfate 3 Ml Ampul.neb, 3 ML NEB QID, (Reported) Levothyroxine Sodium 175 Mcg Tablet, 175 MCG PO DAILY, (Reported) Mag Hydrox/Al Hydrox/Simeth 30 Ml Oral.susp, 30 ML PO UD PRN for INDIGESTION, (Reported) Metoprolol Tartrate 25 Mg Tablet, 25 MG PO BID, (Reported) HOLD FOR SBP<100, DBP <50, OR PULSE <60 Multivitamin 1 Each Tablet, 1 TAB PO DAILY, (Reported) Nystatin 15 Gm Powder, TOP UD PRN for REDNESS/IRRITATION, (Reported) [place] 3 Polyunsat Fatty Acids 1,000 Mg Cap, 1,000 MG PO DAILY, (Reported) Pantoprazole Sodium 40 Mg Tablet.dr, 40 MG PO DAILY, (Reported) Torsemide 20 Mg Tablet, 40 MG PO DAILY, (Reported) TAKES 2 TABLETS (40MG) TABLETS Past Cjhgksa-Miymyz-Axadwa Hx Past Med/Social Hx: Reviewed Nursing Past Med/Soc Hx Patient Social History Alcohol Use: Occasionally Uses Recreational Drug Use: No Smoking Status: Former Smoker Type Used: Cigarettes Recent Foreign Travel: No Contact w/Someone Who Travel: No Recent Infectious Disease Expo: No Recent Hopitalizations: No Physical Abuse: No Sexual Abuse: No Mistreated: No Fear: No Immunizations Up To Date Tetanus Booster (TDap): More than 5yrs Date of Pneumonia Vaccine: Jul 17, 2018 Date of Influenza Vaccine: Mar 10, 2019 Seasonal Allergies Seasonal Allergies: Yes Past Medical History Surgeries: Yes Eye Surgery, Hysterectomy, Oophorectomy, Orthopedic, Tracheostomy Respiratory: Yes Asthma, Pneumonia, COPD Currently Using CPAP: No Currently Using BIPAP: No Cardiac: Yes (PERICARDIAL WINDOW 1993) Atrial Fibrillation, Chronic Edema/Swelling, High Cholesterol, Hypertension Neurological: Yes (NEUROPATHY IN FEET) Neuropathy 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 Disorders: Yes (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) 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, 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 Sexually Transmitted Disease: No Genitourinary: Yes (ON DIALYSIS WHILE SICK WITH PNEUMONIA/MULTIORGAN FAILURE) Renal Failure Gastrointestinal: Yes Abdominal Hernia, Gastroesophageal Reflux Musculoskeletal: Yes Arthritis, Chronic Back Pain Endocrine: Yes (MORBID OBESITY) Hypothyroidsim HEENT: Yes (HX OF TRACH; LEFT EYE SURGERY) Tinnitis Cancer: No Psychosocial: Yes Anxiety, Depression Integumentary: Yes (LEG ULCERS; VENOUS STASIS ) Blood Disorders: Yes (ANEMIA) Adverse Reaction/Blood Tranf: No Family Medical History Alzheimer's disease Arthritis Asthma Completed stroke Dementia Diabetes mellitus Glaucoma Hypertension Kidney disease Myocardial infarction Psychosocial problem Respiratory disorder Severe allergy Thyroid disease Visual disorder No Family History of: AIDS Abdominal aortic aneurysm [place]'s disease Alcoholism Aphasia Cancer of mouth Cardiovascular disease Cataracts Colon cancer Congenital disease Congenital heart disease Coronary thrombosis Cystic fibrosis Deafness or hearing loss Drug abuse Dysphasia Fibrocystic disease of breast Gastroenteritis Headache disorder Hypercholesterolemia Infertility Neoplasm Not obtainable due to adoption Osteoporosis Parkinson's disease Prostate cancer Seizure disorder Tuberculosis No Pertinent Family Hx Review of Systems Time Seen by Provider: 12:13 Sepsis Event Evaluation Height, Weight, BMI Height: 5'4.00" Weight: 246lbs. 2.0oz. 111.559735qw; 44.00 BMI Method:Stated Exam Exam Vital Signs Date Time Temp Pulse Resp B/P (MAP) Pulse Ox O2 Delivery O2 Flow Rate FiO2 06/27/19 10:58 67 18 160/82 100 06/27/19 09:53 67 18 162/82 100 Mechanical Ventilator 06/27/19 09:49 68 18 162/82 100 Mechanical Ventilator 06/27/19 08:22 64 18 162/81 100 06/27/19 07:43 79 16 134/60 98 Room Air 06/27/19 07:01 18 169/83 100 Mechanical Ventilator 30.00 06/27/19 06:28 65 18 100 40 06/27/19 04:05 69 162/82 06/27/19 03:03 70 99 30 06/27/19 01:07 76 160/76 06/26/19 21:23 89 100 40 06/26/19 17:53 90 25 93 28.00 06/26/19 16:48 100 High Flow N/C 3.00 06/26/19 15:47 36.6 84 18 138/65 (89) 97 I & O 06/27/19 07:00 Intake Total 70 ml Balance 70 ml Height & Weight Height: 5'4.00" Weight: 246lbs. 2.0oz. 111.334254in; 44.00 BMI Method:Stated General Appearance: WD/WN, Other (sedated on vent) HEENT: PERRL/EOMI, Normal ENT Inspection, Pharynx Normal Neck: Full Range of Motion, Non Tender, Supple Respiratory: Chest Non Tender, No Accessory Muscle Use, No Respiratory Distress, Decreased Breath Sounds Cardiovascular: Regular Rate, Rhythm, No Edema Capillary Refill: Less Than 3 Seconds Gastrointestinal: normal bowel sounds, non tender, soft Neurologic/Psychiatric: Alert, Oriented x3 Skin: Normal Color, Warm/Dry Lymphatic: No Adenopathy Results Lab Laboratory Tests 06/26/19 15:36 06/27/19 05:22 Assessment/Plan Assessment/Plan Acute on chronic respiratory failure -Continue ventilator care -Repeat ABG COPDAE -Solumedrol 40 IV Q 6 -Duoneb Q 4 Hyperkalemia -Repeat labs Acute renal failure -IVF and monitor PNA -Continue cefepime and vanco for now Hx of Diastolic CHF grade II - -Monitor Anemia -Check occult stool Thrombocytopenia -Monitor HTN -Add hydralazine PRN ESTRELLITA PITT DO Jun 27, 2019 12:16
[2019-06-27] MEDS ORDERED: ENOXAPARIN 30 MG/0.3 ML (LOVENOX) SYR SC SCH (12:30)
[2019-06-27 12:31] LABS: ABG BASE EXCESS 0.7 MMOL/L (-2.5-2.5); ABG OXYGEN SATURATION 100 % (94-100); ABG PCO2 42 MMHG (35-45); ABG PH 7.39 (7.37-7.43); ABG PO2 160 MMHG (79-93); ABG TCO2 26.3 MMOL/L (21.0-31.0); ALLENS TEST YES-POS; INSPIRED O2 40%; PATIENT TEMP 37.1; VENTILATOR YES
[2019-06-27 12:34] LABS: BASOPHILS % (AUTO) 0 % (0-10); EOSINOPHILS % (AUTO) 0 % (0-10); HEMATOCRIT 29 % (35-52); LYMPHOCYTES # (AUTO) 0.2 X 10^3 (1.0-4.0); LYMPHOCYTES % (AUTO) 3 % (12-44); MEAN CORPUSCULAR HEMOGLOBIN 28 PG (25-34); MEAN CORPUSCULAR HGB CONC 28 G/DL (32-36); MEAN CORPUSCULAR VOLUME 101 FL (80-99); MEAN PLATELET VOLUME 11.7 FL (7.4-10.4); MONOCYTES # (AUTO) 0.2 X 10^3 (0.0-1.0); MONOCYTES % (AUTO) 3 % (0-12); NEUTROPHILS # (AUTO) 6.9 X 10^3 (1.8-7.8); NEUTROPHILS % (AUTO) 94 % (42-75); PLATELET COUNT 49 10^3/uL (130-400); RED CELL DISTRIBUTION WIDTH 15.9 % (10.0-14.5); WHITE BLOOD COUNT 7.4 10^3/uL (4.3-11.0)
[2019-06-27 12:52] LABS: ALBUMIN 3.1 GM/DL (3.2-4.5); BILIRUBIN,TOTAL 0.2 MG/DL (0.1-1.0); CALCIUM 8.6 MG/DL (8.5-10.1); CREATININE SERUM 2.1 MG/DL (0.60-1.30); PHOSPHORUS 4.2 MG/DL (2.3-4.7); POTASSIUM 5.6 MMOL/L (3.6-5.0)
--- NOTE | 2019-06-27 13:01 | History & Physical ---
History of Present Illness History of Present Illness Reason for visit/HPI Patient is a resident of a custodial [facility]. I received a call from the nurse stating that the patient is acting differently and having acute mental status change. Patient sent out to the emergency room. Patient has pneumonia. Patient has acute respiratory failure. Patient has acute renal failure. Patient admitted to ICU when bed is available Date of Admission Jun 27, 2019 at 09:06 Time Seen by a Provider: 12:57 I consulted on this patient on 06/27/19 12:56 Attending Physician Juan Stack DO Admitting Physician Juan Stack DO Consult Allergies and Home Medications Allergies Coded Allergies: ondansetron (Verified Allergy, Unknown, 05/14/19) risperidone (Verified Allergy, Unknown, 10/16/18) simvastatin (Unverified Adverse Reaction, Unknown, 04/20/14) Home Medications Acetaminophen 325 Mg Tablet, 650 MG PO Q4H PRN for PAIN-MILD, (Reported) TAKES 2 (325MG) TABLETS Acetazolamide 250 Mg Tablet, 250 MG PO DAILY, (Reported) Allopurinol 100 Mg Tablet, 100 MG PO DAILY, (Reported) Budesonide/Formoterol Fumarate 10.2 Gm Hfa.aer.ad, 2 PUFF INH BID, (Reported) Cefdinir 300 Mg Capsule, 300 MG PO BID Prescribed by: JUAN STACK on 06/20/19 0830 Chlorophyllin/[place] 1 Each Tablet, 1 TAB PO BID, (Reported) Cholecalciferol (Vitamin D3) 2,000 Unit Capsule, 2,000 UNIT PO DAILY, (Reported) Dextran 70/Hypromellose 15 Ml Drops, 2 DROPS OU Q4H PRN for DRY EYES, (Reported) Garlic 1,000 Mg Capsule, 1,000 MG PO DAILY, (Reported) Glucosamine Sulfate 2Kcl 1,000 Mg Tablet, 1,000 MG PO BID, (Reported) Guaifenesin 600 Mg Tab.er.12h, 600 MG PO Q12H PRN for CONGESTION, (Reported) Hydrocodone Bit/Acetaminophen 1 Each Tablet, 1 TAB PO BID, (Reported) Ipratropium/Albuterol Sulfate 3 Ml Ampul.neb, 3 ML NEB QID, (Reported) Levothyroxine Sodium 175 Mcg Tablet, 175 MCG PO DAILY, (Reported) Mag Hydrox/Al Hydrox/Simeth 30 Ml Oral.susp, 30 ML PO UD PRN for INDIGESTION, (Reported) Metoprolol Tartrate 25 Mg Tablet, 25 MG PO BID, (Reported) HOLD FOR SBP<100, DBP <50, OR PULSE <60 Multivitamin 1 Each Tablet, 1 TAB PO DAILY, (Reported) Nystatin 15 Gm Powder, TOP BID PRN for IRRITATION, (Reported) [place] 3 Polyunsat Fatty Acids 1,000 Mg Cap, 1,000 MG PO DAILY, (Reported) Pantoprazole Sodium 40 Mg Tablet.dr, 40 MG PO DAILY, (Reported) Torsemide 20 Mg Tablet, 40 MG PO DAILY, (Reported) TAKES 2 TABLETS (40MG) TABLETS Zinc Oxide 113 Gm Cream..g., TP TID, (Reported) Patient Home Medication List Home Medication List Reviewed: No Past Wnevzop-Hinkqx-Xguhok Hx Past Med/Social Hx: Reviewed Nursing Past Med/Soc Hx Patient Social History Employed/Student: retired Alcohol Use: Occasionally Uses Recreational Drug Use: No Smoking Status: Former Smoker Type Used: Cigarettes Recent Foreign Travel: No Contact w/other who traveled: No Recent Hopitalizations: No Recent Infectious Disease Expo: No Immunizations Up To Date Tetanus Booster (TDap): More than 5yrs Date of Pneumonia Vaccine: Jul 17, 2018 Date of Influenza Vaccine: Mar 10, 2019 Seasonal Allergies Seasonal Allergies: Yes Past Medical History Surgeries: Eye Surgery, Hysterectomy, Oophorectomy, Orthopedic, Tracheostomy Currently Using CPAP: No Currently Using BIPAP: No Cardiac: Atrial Fibrillation, Chronic Edema/Swelling, High Cholesterol, Hypertension Neurological: Neuropathy 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: Yes (ENDOMETRIAL HYPERPLASIA) Sexually Transmitted Disease: No Hysterectomy, Menopausal Genitourinary: Renal Failure Gastrointestinal: Abdominal Hernia, Gastroesophageal Reflux Musculoskeletal: Arthritis, Chronic Back Pain Endocrine: Hypothyroidsim HEENT: Tinnitis Psychosocial: Anxiety, Depression History of Blood Disorders: Yes (ANEMIA) Adverse Reaction to Blood Muller: No Family History Alzheimer's disease Arthritis Asthma Completed stroke Dementia Diabetes mellitus Glaucoma Hypertension Kidney disease Myocardial infarction Psychosocial problem Respiratory disorder Severe allergy Thyroid disease Visual disorder No Family History of: AIDS Abdominal aortic aneurysm Dawson's disease Alcoholism Aphasia Cancer of mouth Cardiovascular disease Cataracts Colon cancer Congenital disease Congenital heart disease Coronary thrombosis Cystic fibrosis Deafness or hearing loss Drug abuse Dysphasia Fibrocystic disease of breast Gastroenteritis Headache disorder Hypercholesterolemia Infertility Neoplasm Not obtainable due to adoption Osteoporosis Parkinson's disease Prostate cancer Seizure disorder Tuberculosis No Pertinent Family Hx Review of Systems Constitutional: weakness, other (Confusion) EENTM: no symptoms reported Respiratory: dyspnea on exertion, short of breath Cardiovascular: no symptoms reported Gastrointestinal: no symptoms reported Genitourinary: no symptoms reported Physical Exam Vital Signs Vital Signs - First Documented 06/26/19 06/26/19 06/26/19 15:47 16:48 21:23 Temp 36.6 Pulse 84 Resp 18 B/P (MAP) 138/65 (89) Pulse Ox 97 O2 Delivery High Flow N/C O2 Flow Rate 3.00 FiO2 40 Capillary Refill : Less Than 3 Seconds Height, Weight, BMI Height: 5'4.00" Weight: 246lbs. 2.0oz. 111.137551sq; 44.00 BMI Method:Stated General Appearance: Other (Patient comfortably on ventilator) Neck: Normal Inspection Respiratory: No Accessory Muscle Use, No Respiratory Distress, Decreased Breath Sounds Cardiovascular: Regular Rate, Rhythm Gastrointestinal: Non Tender, Soft Assessment/Plan Assessment and Plan COPD with acute exacerbation left lower lobe pneumonia renal insufficiency acute short of breath acute respiratory failure thrombocytopenia hypertension hyperlipidemia Admission Diagnosis Admission Status: Inpatient Order (span 2 midnights) Reason for Inpatient Admission: Acute respiratory failure patient on ventilator. Acute renal failure. COPD acute exacerbation. Confusion JUAN STACK DO Jun 27, 2019 13:01
[2019-06-27] MEDS ORDERED: inSUlin (REGULAR) HUMAN 1 UNIT/0.01 ML (CHARGE PER UNIT) IV ONE (13:15)
[2019-06-27] MEDS ORDERED: DEXTROSE 50% 50 ML (IMS) SYR IV ONE (13:15)
[2019-06-27] MEDS ORDERED: SODIUM BICARB 8.4% 50 MEQ/50 ML (ABBOTT) SYR IV ONE (13:15)
[2019-06-27] MEDS ORDERED: DEXTROSE 50% 50 ML (IMS) SYR ONE (13:28)
[2019-06-27] MEDS ORDERED: SODIUM BICARB 8.4% 50 MEQ/50 ML VIAL ONE (13:28)
[2019-06-27] MEDS ORDERED: inSUlin ASPART (NovoLOG) 1 UNIT/0.01 ML (CHARGE PER UNIT) ONE (13:29)
[2019-06-27 13:30] LABS: ANISOCYTOSIS SLIGHT; BAND NEUTROPHILS 2 %; BASOPHILS % (MANUAL) 0 %; ELLIPT/OVALOCYTES SLIGHT; EOSINOPHILS % (MANUAL) 0 %; LYMPHOCYTES % (MANUAL) 4 %; MONOCYTES % (MANUAL) 0 %; NEUTROPHILS % (MANUAL) 94 %; POIKILOCYTOSIS SLIGHT
[2019-06-27] MEDS ORDERED: inSUlin (REGULAR) HUMAN 1 UNIT/0.01 ML (CHARGE PER UNIT) ONE (13:45)
[2019-06-27] MEDS ORDERED: RT-ALBUTEROL/IPRATROPIUM 3 ML (DUONEB) VIAL IH SCH (14:00)
--- NOTE | 2019-06-27 14:00 | NUR ---
"Received dietary consult regarding pt's vent status. Est. kcal needs: 4180-9248 kcal | 15-18 kcal/kg Est. protein needs: 59-83 g Pro | 0.5-0.8 g Pro/kg (for pts with acute renal failure) Would recommend the following TF: Pulmocare 1.5 at goal rate of 50ml/hr. Begin at 10ml/hr and increase by 10ml q6h as tolerated. At goal rate, provides 1800 kcal (15 kcal/kg); 75 g Pro (0.7 g Pro/kg); and 916 ml free water. Flush with 75ml H2O q4h for hydration status. With flushes, provides 1366 ml free water. Will continue to follow and reassess as pt needs and status change. Collin Barrios MS, RD, LD [phone]"
--- NOTE | 2019-06-27 14:03 | NUR ---
UPDATED MED REC WITH PHYSICIAN'S ORDERS FROM [facility]
[2019-06-27] MEDS: DEXMEDETOMIDINE 1,000 MCG/NS 250 ML IV SCH ×2 (14:10)
[2019-06-27 14:32] LABS: ABG BASE EXCESS 2.8 MMOL/L (-2.5-2.5); ABG OXYGEN SATURATION 99 % (94-100); ABG PCO2 38 MMHG (35-45); ABG PH 7.46 (7.37-7.43); ABG PO2 102 MMHG (79-93); ABG TCO2 27.6 MMOL/L (21.0-31.0)
[2019-06-27 14:35] LABS: ALLENS TEST YES-POS; INSPIRED O2 30%; PATIENT TEMP 37.1; VENTILATOR YES
[2019-06-27] MEDS: RT-ALBUTEROL/IPRATROPIUM 3 ML (DUONEB) VIAL INH SCH ×3 (15:25→21:53)
--- NOTE | 2019-06-27 15:39 | Diagnostic Imaging Report ---
INDICATION: PICC line placement. Frontal chest obtained at 03:23 p.m. ET tube and NG tube are unchanged compared to 06/26/2019. There is a new right-sided PICC line with tip overlying the low SVC. There is cardiomegaly with some patchy bibasilar infiltrate. There is no pneumothorax or significant pleural fluid. IMPRESSION: Unchanged cardiomegaly and bilateral infiltrates. Stable ET tube and NG tube. New right-sided PICC line tip overlies low SVC. Dictated by: Dictated on workstation # [id number]
[2019-06-27] MEDS: AZITHROMYCIN 250 MG TAB (ZITHROMAX) PO SCH (17:37)
[2019-06-27] MEDS: SOD POLYSTERENE 15 GM/60 ML (KAYEXALATE) UNIT DOSE PO SCH (17:37)
[2019-06-27] MEDS: cefTRIAXone 1,000 MG/SWFI 10 ML IV PUSH IV SCH ×2 (17:38)
[2019-06-27] MEDS: RT-BUDESONIDE NEBS 0.5 MG/2ML (PULMICORT) AMP INH SCH (18:07)
--- NOTE | 2019-06-27 22:55 | NUR ---
This RN called EICU to report high DVT risk assessment, no order for medication due to thrombocytopenia. This RN also reported patient's lower legs are red, warm to touch and have multiple blisters, order received for bilateral ultrasound venous doppler of legs prior to placing SCDs. New order received for Solumedrol 40mg IV BID. This RN notified EICU of patient's home medication of Metoprolol 25mg BID, no new order to restart this medication at this time.
[2019-06-27] MEDS ORDERED: methylPREDNISolone 40 MG/ML (Solu-MEDROL) VIAL IV SCH (23:11)
[2019-06-28] VITALS (31 sets, daily range): BP systolic 102–195; BP diastolic 52–97
[2019-06-28] MEDS: SOD POLYSTERENE 15 GM/60 ML (KAYEXALATE) UNIT DOSE PO SCH (00:22)
[2019-06-28] MEDS: inSUlin ASPART (NovoLOG) 1 UNIT/0.01 ML (CHARGE PER UNIT) SC SCH ×4 (00:22→17:55)
[2019-06-28] MEDS: RT-ALBUTEROL/IPRATROPIUM 3 ML (DUONEB) VIAL INH SCH ×6 (02:25→23:54)
[2019-06-28] MEDS: ZINC OXIDE 40% (Butt Paste MAX/Desitin) 57 gm TOP PRN (02:27)
[2019-06-28] MEDS: PROPOFOL DRIP (ICU) 100 ML IV SCH ×3 (02:27→18:16)
[2019-06-28 03:25] LABS: BASOPHILS % (AUTO) 0 % (0-10); EOSINOPHILS % (AUTO) 0 % (0-10); HEMATOCRIT 23 % (35-52); LYMPHOCYTES # (AUTO) 0.2 X 10^3 (1.0-4.0); LYMPHOCYTES % (AUTO) 6 % (12-44); MEAN CORPUSCULAR HEMOGLOBIN 28 PG (25-34); MEAN CORPUSCULAR HGB CONC 28 G/DL (32-36); MEAN CORPUSCULAR VOLUME 99 FL (80-99); MEAN PLATELET VOLUME 11.2 FL (7.4-10.4); MONOCYTES # (AUTO) 0.1 X 10^3 (0.0-1.0); MONOCYTES % (AUTO) 3 % (0-12); NEUTROPHILS # (AUTO) 3.4 X 10^3 (1.8-7.8); NEUTROPHILS % (AUTO) 91 % (42-75); PLATELET COUNT 44 10^3/uL (130-400); RED CELL DISTRIBUTION WIDTH 16.4 % (10.0-14.5); WHITE BLOOD COUNT 3.7 10^3/uL (4.3-11.0)
[2019-06-28 03:27] LABS: HEMOGLOBIN 6.3 G/DL (11.5-16.0)
--- NOTE | 2019-06-28 03:33 | Pulmonary Progress Note ---
Subjective Date Seen by a Provider: Jun 28, 2019 Time Seen by a Provider: 03:10 Subjective/Events-last exam The patient is sedated and on the ventilator. There is no family present at this time. Sepsis Event Evaluation Height, Weight, BMI Height: 5'4.00" Weight: 246lbs. 2.0oz. 111.204486up; 44.00 BMI Method:Stated Focused Exam Lactate Level 06/26/19 19:32: Lactic Acid Level 0.66 06/27/19 12:15: Lactic Acid Level 0.80 Exam Exam Vital Signs Date Time Temp Pulse Resp B/P (MAP) Pulse Ox O2 Delivery O2 Flow Rate FiO2 06/28/19 03:00 70 22 124/71 (88) 93 Mechanical Ventilator 30.00 06/28/19 02:29 73 24 96 30 06/28/19 02:27 113/75 06/28/19 02:00 63 18 114/58 (76) 97 Mechanical Ventilator 30.00 06/28/19 01:00 69 06/28/19 01:00 64 25 102/52 (69) 97 Mechanical Ventilator 30.00 06/28/19 00:00 36.6 06/28/19 00:00 68 23 109/52 (71) 96 Mechanical Ventilator 30.00 06/27/19 23:00 68 23 106/52 (70) 96 Mechanical Ventilator 30.00 06/27/19 22:31 119/56 06/27/19 22:00 73 15 119/54 (75) 97 Mechanical Ventilator 30.00 06/27/19 21:53 66 24 97 30 06/27/19 21:00 65 15 109/52 (71) 97 Mechanical Ventilator 30.00 06/27/19 20:00 36.3 06/27/19 20:00 68 23 111/55 (73) 97 Mechanical Ventilator 30.00 06/27/19 19:00 73 23 112/51 (71) 95 Mechanical Ventilator 30.00 06/27/19 19:00 74 06/27/19 18:33 108/50 06/27/19 18:11 71 24 96 30 06/27/19 18:00 68 24 122/60 (80) 96 Mechanical Ventilator 40.00 06/27/19 17:00 70 23 130/61 (84) 96 Mechanical Ventilator 40.00 06/27/19 16:00 96 Mechanical Ventilator 40 06/27/19 16:00 68 19 135/65 (88) 96 Mechanical Ventilator 40.00 06/27/19 15:45 Mechanical Ventilator 40 06/27/19 15:25 66 24 98 30 06/27/19 15:00 68 24 127/62 (83) 99 Mechanical Ventilator 40.00 06/27/19 14:00 63 23 150/70 (96) 98 Mechanical Ventilator 40.00 06/27/19 13:00 67 24 164/99 (120) 100 Mechanical Ventilator 40.00 06/27/19 13:00 63 18 157/70 06/27/19 12:36 62 06/27/19 12:00 63 18 157/70 (99) 100 Mechanical Ventilator 40.00 06/27/19 11:30 67 26 149/77 (101) 97 Mechanical Ventilator 40.00 06/27/19 11:30 78 18 99 40 06/27/19 10:58 67 18 160/82 100 06/27/19 09:53 67 18 162/82 100 Mechanical Ventilator 06/27/19 09:49 68 18 162/82 100 Mechanical Ventilator 06/27/19 08:22 64 18 162/81 100 06/27/19 07:43 79 16 134/60 98 Room Air 06/27/19 07:01 18 169/83 100 Mechanical Ventilator 30.00 06/27/19 06:28 65 18 100 40 06/27/19 04:05 69 162/82 I & O 06/28/19 07:00 Intake Total 1500 ml Output Total 850 ml Balance 650 ml Height & Weight Height: 5'4.00" Weight: 246lbs. 2.0oz. 111.755399sb; 44.00 BMI Method:Stated General Appearance: Other (Patient comfortably on ventilator) HEENT: PERRL/EOMI, Normal ENT Inspection, Pharynx Normal Neck: Normal Inspection Respiratory: Decreased Breath Sounds, Rales Cardiovascular: Regular Rate, Rhythm Capillary Refill: Less Than 3 Seconds Gastrointestinal: normal bowel sounds, non tender, soft Skin: Normal Color, Warm/Dry Lymphatic: No Adenopathy Results Lab Laboratory Tests 06/26/19 15:36 06/27/19 05:22 06/27/19 12:15 Assessment/Plan Assessment/Plan Acute on chronic respiratory failure -Continue ventilator care -Repeat ABG COPDAE -Solumedrol 40 IV Q 6 -Duoneb Q 4 Hyperkalemia -Repeat labs: 5.6@12:15 on 06/27 Acute renal failure -IVF and monitor PNA -Continue cefepime and vanco for now Hx of Diastolic CHF grade II - -Monitor Anemia -Check occult stool -Hgb: 6.3 this am -transfuse 1 unit PRBC Thrombocytopenia -Monitor HTN -Add hydralazine PRN RAPHAEL SARABIA MED STUDENT Jun 28, 2019 03:32
[2019-06-28 03:38] LABS: ABG BASE EXCESS 1.8 MMOL/L (-2.5-2.5); ABG OXYGEN SATURATION 97 % (94-100); ABG PCO2 43 MMHG (35-45); ABG PO2 87 MMHG (79-93); ABG TCO2 27.6 MMOL/L (21.0-31.0)
[2019-06-28 03:39] LABS: ALLENS TEST POSITIVE; INSPIRED O2 30%; PATIENT TEMP 36.2; VENTILATOR YES
[2019-06-28 04:02] LABS: BASOPHILS % (AUTO) 0 % (0-10); EOSINOPHILS % (AUTO) 0 % (0-10); HEMATOCRIT 25 % (35-52); LYMPHOCYTES # (AUTO) 0.2 X 10^3 (1.0-4.0); LYMPHOCYTES % (AUTO) 4 % (12-44); MEAN CORPUSCULAR HEMOGLOBIN 29 PG (25-34); MEAN CORPUSCULAR HGB CONC 29 G/DL (32-36); MEAN CORPUSCULAR VOLUME 98 FL (80-99); MEAN PLATELET VOLUME 11.2 FL (7.4-10.4); MONOCYTES # (AUTO) 0.1 X 10^3 (0.0-1.0); MONOCYTES % (AUTO) 2 % (0-12); NEUTROPHILS % (AUTO) 93 % (42-75); PLATELET COUNT 48 10^3/uL (130-400); RED CELL DISTRIBUTION WIDTH 16.3 % (10.0-14.5); WHITE BLOOD COUNT 4.3 10^3/uL (4.3-11.0)
[2019-06-28 04:04] LABS: HEMOGLOBIN 7.3 G/DL (11.5-16.0)
--- NOTE | 2019-06-28 04:13 | NUR ---
THIS RN CALLED EICU TO REPORT DECREASED URINE OUTPUT OF 18ML/HR OVER PAST 4 HOURS.
[2019-06-28] MEDS: LACTATED RINGERS 1,000 ML IV SCH (04:14)
[2019-06-28 04:20] LABS: CALCIUM 8.2 MG/DL (8.5-10.1); CREATININE SERUM 1.94 MG/DL (0.60-1.30); MAGNESIUM 2.2 MG/DL (1.6-2.4); PHOSPHORUS 3.6 MG/DL (2.3-4.7); POTASSIUM 4.6 MMOL/L (3.6-5.0)
[2019-06-28] MEDS ORDERED: D5W 1000 ML IV SOLUTION 1,000 ML IV SCH (05:30)
--- NOTE | 2019-06-28 05:57 | Pulmonary Progress Note ---
Subjective Time Seen by a Provider: 05:57 Sepsis Event Evaluation Height, Weight, BMI Height: 5'4.00" Weight: 246lbs. 2.0oz. 111.958486wj; 44.00 BMI Method:Stated Focused Exam Lactate Level 06/26/19 19:32: Lactic Acid Level 0.66 06/27/19 12:15: Lactic Acid Level 0.80 Exam Exam Vital Signs Date Time Temp Pulse Resp B/P (MAP) Pulse Ox O2 Delivery O2 Flow Rate FiO2 06/28/19 05:00 64 24 148/79 (102) 96 Mechanical Ventilator 30.00 06/28/19 04:12 155/81 06/28/19 04:00 93 Mechanical Ventilator 30 06/28/19 04:00 75 20 155/81 (105) 94 Mechanical Ventilator 30.00 06/28/19 03:00 70 22 124/71 (88) 93 Mechanical Ventilator 30.00 06/28/19 02:29 73 24 96 30 06/28/19 02:27 113/75 06/28/19 02:00 63 18 114/58 (76) 97 Mechanical Ventilator 30.00 06/28/19 01:00 69 06/28/19 01:00 64 25 102/52 (69) 97 Mechanical Ventilator 30.00 06/28/19 00:00 36.6 06/28/19 00:00 68 23 109/52 (71) 96 Mechanical Ventilator 30.00 06/28/19 00:00 93 Mechanical Ventilator 30 06/27/19 23:00 68 23 106/52 (70) 96 Mechanical Ventilator 30.00 06/27/19 22:31 119/56 06/27/19 22:00 73 15 119/54 (75) 97 Mechanical Ventilator 30.00 06/27/19 21:53 66 24 97 30 06/27/19 21:00 65 15 109/52 (71) 97 Mechanical Ventilator 30.00 06/27/19 20:00 36.3 06/27/19 20:00 68 23 111/55 (73) 97 Mechanical Ventilator 30.00 06/27/19 20:00 93 Mechanical Ventilator 30 06/27/19 19:00 73 23 112/51 (71) 95 Mechanical Ventilator 30.00 06/27/19 19:00 74 06/27/19 18:33 108/50 06/27/19 18:11 71 24 96 30 06/27/19 18:00 68 24 122/60 (80) 96 Mechanical Ventilator 40.00 06/27/19 17:00 70 23 130/61 (84) 96 Mechanical Ventilator 40.00 06/27/19 16:00 96 Mechanical Ventilator 40 06/27/19 16:00 68 19 135/65 (88) 96 Mechanical Ventilator 40.00 06/27/19 15:45 Mechanical Ventilator 40 06/27/19 15:25 66 24 98 30 06/27/19 15:00 68 24 127/62 (83) 99 Mechanical Ventilator 40.00 06/27/19 14:00 63 23 150/70 (96) 98 Mechanical Ventilator 40.00 06/27/19 13:00 67 24 164/99 (120) 100 Mechanical Ventilator 40.00 06/27/19 13:00 63 18 157/70 06/27/19 12:36 62 06/27/19 12:00 63 18 157/70 (99) 100 Mechanical Ventilator 40.00 06/27/19 11:30 67 26 149/77 (101) 97 Mechanical Ventilator 40.00 06/27/19 11:30 78 18 99 40 06/27/19 10:58 67 18 160/82 100 06/27/19 09:53 67 18 162/82 100 Mechanical Ventilator 06/27/19 09:49 68 18 162/82 100 Mechanical Ventilator 06/27/19 08:22 64 18 162/81 100 06/27/19 07:43 79 16 134/60 98 Room Air 06/27/19 07:01 18 169/83 100 Mechanical Ventilator 30.00 06/27/19 06:28 65 18 100 40 I & O 06/28/19 07:00 Intake Total 1600 ml Output Total 925 ml Balance 675 ml Height & Weight Height: 5'4.00" Weight: 246lbs. 2.0oz. 111.611009ym; 44.00 BMI Method:Stated General Appearance: Other (Patient comfortably on ventilator) HEENT: PERRL/EOMI, Normal ENT Inspection, Pharynx Normal Neck: Normal Inspection Respiratory: Decreased Breath Sounds, Rales Cardiovascular: Regular Rate, Rhythm Capillary Refill: Less Than 3 Seconds Gastrointestinal: normal bowel sounds, non tender, soft Skin: Normal Color, Warm/Dry Lymphatic: No Adenopathy Results Lab Laboratory Tests 06/26/19 15:36 1/3/20 05:22 06/27/19 12:15 06/28/19 03:13 06/28/19 03:48 Assessment/Plan Assessment/Plan Acute on chronic respiratory failure -Continue ventilator care -Will start vent weaning today. -Give bumex 2mg IV x 1 now -Repeat ABG Hypernatremia -Change IVF to D5W at 20cc/hr COPDAE -Solumedrol 40 IV Q 6 -Duoneb Q 4 Acute renal failure -IVF and monitor PNA -Continue cefepime and vanco for now Hx of Diastolic CHF grade II - -Monitor Anemia -Check occult stool Thrombocytopenia -Monitor HTN -Add hydralazine PRN ESTRELLITA PITT DO Jun 28, 2019 05:57
[2019-06-28] MEDS ORDERED: BUMETANIDE 1 MG/4 ML (BUMEX) VIAL IV ONE (06:00)
[2019-06-28] MEDS ORDERED: PHARMACY TO DOSE IV SCH (06:15)
[2019-06-28] MEDS: KCL 20 MEQ TAB (K-DUR) PO SCH (06:59)
[2019-06-28] MEDS: POTASSIUM CL 10MEQ/50ML IVPB 50 ML IV SCH (06:59)
[2019-06-28] MEDS: MAGNESIUM 1 GM/100 ML IVPB 100 ML IV SCH (06:59)
[2019-06-28] MEDS: methylPREDNISolone 40 MG/ML (Solu-MEDROL) VIAL IV SCH ×3 (07:00→18:17)
--- NOTE | 2019-06-28 07:29 | NUR ---
VANCOMYCIN DOSING; CrCl 34.3, PATIENT RECEIVED 1750 MG ON 06/27 @ 1230 RESTART VANCOMYCIN 1750 MG ON 06/28 @ 1230 VANCOMYCIN TROUGH DUE 06/30 @ 1130 IF TROUGH >20, HOLD 06/30 DOSE
[2019-06-28] MEDS: RT-BUDESONIDE NEBS 0.5 MG/2ML (PULMICORT) AMP INH SCH ×2 (07:36→19:08)
--- NOTE | 2019-06-28 08:41 | Progress Note - Hospitalist ---
Subjective HPI/CC On Admission Date Seen by Provider: Jun 28, 2019 Time Seen by Provider: 08:35 Subjective/Events-last exam Pt is intubated and on weanign trial. Alert and appears anxious. Family at bedside. No questions. Focused Exam Lactate Level 06/26/19 19:32: Lactic Acid Level 0.66 06/27/19 12:15: Lactic Acid Level 0.80 Objective Exam Vital Signs Vital Signs Date Time Temp Pulse Resp B/P (MAP) Pulse Ox O2 Delivery O2 Flow Rate FiO2 06/28/19 08:06 81 15 93 30 06/28/19 06:00 156/76 (102) Mechanical Ventilator 30.00 06/28/19 00:00 36.6 Capillary Refill : Less Than 3 Seconds General Appearance: Anxious, Chronically ill, Obese Respiratory: Lungs Clear, No Respiratory Distress Cardiovascular: Regular Rate, Rhythm, No Murmur Gastrointestinal: Normal Bowel Sounds, Non Tender, Soft Extremity: Swelling, Other (stasis dermatitis on bilateral lower extremities) Neurologic/Psychiatric: Alert Results/Procedures Lab Laboratory Tests 06/27/19 12:15 06/28/19 03:13 06/28/19 03:48 Patient resulted labs reviewed. Assessment/Plan Assessment and Plan Assess & Plan/Chief Complaint Acute respiratory failure patient on ventilator- WEaning currently, hopeful to extubate today Acute renal failure on CKD: Improving, continue IVF COPD acute exacerbation- Continue steroids, SVNs, pulm consult Bilateral PNA: Continue Vanc and Rocephin Confusion- likely due to CO2 Narcosis Thrombocytopenia- New, trend- hold Lovenox for this- will check HIT ab give recent lovenox use from last admission Anemia- Stable, transfuse for Hgb <7 Hypothyroidism- Resume Synthroid Hyperglycemia- SSI, likely iatrogenic from steroids Clinical Quality Measures DVT/VTE Risk/Contraindication: Risk Factor Score Per Nursin RFS Level Per Nursing on Admit: 4+=Very High BRANDIE OTT MD Jun 28, 2019 08:41
[2019-06-28 08:57] LABS: ABG BASE EXCESS 1.3 MMOL/L (-2.5-2.5); ABG OXYGEN SATURATION 93 % (94-100); ABG PCO2 53 MMHG (35-45); ABG PO2 68 MMHG (79-93); ABG TCO2 28.6 MMOL/L (21.0-31.0)
[2019-06-28 08:59] LABS: ABG PH 7.32 (7.37-7.43); INSPIRED O2 30%; VENTILATOR YES
[2019-06-28] MEDS ORDERED: BUMETANIDE 1 MG/4 ML (BUMEX) VIAL IV SCH (09:00)
[2019-06-28] MEDS ORDERED: PANTOPRAZOLE 40 MG (PROTONIX) VIAL IV SCH (09:00)
[2019-06-28] MEDS: PANTOPRAZOLE 40 MG (PROTONIX) VIAL IV SCH (10:35)
--- NOTE | 2019-06-28 12:11 | Diagnostic Imaging Report ---
INDICATION: Respiratory distress. Intubation FINDINGS: Portable chest shows cardiomegaly with no failure. The lungs are clear. There may be a small effusion on the left. ET tube is in good position. An OG-tube is present. Right arm PICC line remains in place. IMPRESSION: Stable cardiomegaly. The infiltrates have resolved since 06/27/2019. Dictated by: Dictated on workstation # [id number]
[2019-06-28] MEDS: VANCOMYCIN 1,750 MG/NS 500 ML IVPB IV SCH ×2 (12:12)
[2019-06-28] MEDS: DEXMEDETOMIDINE 1,000 MCG/NS 250 ML IV SCH ×2 (12:44)
[2019-06-28 16:46] LABS: ABG OXYGEN SATURATION 96 % (94-100); ABG PCO2 52 MMHG (35-45); ABG PO2 84 MMHG (79-93)
[2019-06-28 16:50] LABS: ABG PH 7.33 (7.37-7.43); ALLENS TEST POS
[2019-06-28 16:51] LABS: INSPIRED O2 30%; PATIENT TEMP 36.6; VENTILATOR YES
[2019-06-28] MEDS: cefTRIAXone 1,000 MG/SWFI 10 ML IV PUSH IV SCH ×2 (18:09)
[2019-06-28] MEDS: AZITHROMYCIN 250 MG TAB (ZITHROMAX) PO SCH (18:10)
[2019-06-28] MEDS: hydrALAZINE (APESOLINE) 20 MG/ML VIAL IV PRN (18:23)
[2019-06-29] VITALS (30 sets, daily range): BP systolic 102–171; BP diastolic 70–124
[2019-06-29] MEDS: DEXMEDETOMIDINE 1,000 MCG/NS 250 ML IV SCH ×2 (00:36)
[2019-06-29] MEDS: PROPOFOL DRIP (ICU) 100 ML IV SCH ×4 (00:37→20:17)
[2019-06-29] MEDS: methylPREDNISolone 40 MG/ML (Solu-MEDROL) VIAL IV SCH ×5 (00:43→23:59)
[2019-06-29] MEDS: inSUlin ASPART (NovoLOG) 1 UNIT/0.01 ML (CHARGE PER UNIT) SC SCH ×5 (00:43→23:45)
[2019-06-29] MEDS: RT-ALBUTEROL/IPRATROPIUM 3 ML (DUONEB) VIAL INH SCH ×6 (03:17→23:07)
[2019-06-29 03:59] LABS: BASOPHILS % (AUTO) 0 % (0-10); EOSINOPHILS % (AUTO) 0 % (0-10); HEMATOCRIT 28 % (35-52); LYMPHOCYTES # (AUTO) 0.1 X 10^3 (1.0-4.0); LYMPHOCYTES % (AUTO) 3 % (12-44); MEAN CORPUSCULAR HEMOGLOBIN 28 PG (25-34); MEAN CORPUSCULAR HGB CONC 29 G/DL (32-36); MEAN CORPUSCULAR VOLUME 98 FL (80-99); MEAN PLATELET VOLUME 11.5 FL (7.4-10.4); MONOCYTES # (AUTO) 0.1 X 10^3 (0.0-1.0); MONOCYTES % (AUTO) 2 % (0-12); NEUTROPHILS # (AUTO) 4.8 X 10^3 (1.8-7.8); NEUTROPHILS % (AUTO) 95 % (42-75); PLATELET COUNT 53 10^3/uL (130-400); RED CELL DISTRIBUTION WIDTH 16.1 % (10.0-14.5)
[2019-06-29 04:00] LABS: ABG BASE EXCESS 0.5 MMOL/L (-2.5-2.5); ABG OXYGEN SATURATION 93 % (94-100); ABG PCO2 47 MMHG (35-45); ABG PH 7.35 (7.37-7.43); ABG PO2 63 MMHG (79-93); ABG TCO2 27.1 MMOL/L (21.0-31.0)
[2019-06-29 04:01] LABS: ALLENS TEST POSITIVE
[2019-06-29 04:02] LABS: INSPIRED O2 30%; VENTILATOR YES
[2019-06-29 04:08] LABS: CALCIUM 8.2 MG/DL (8.5-10.1); CREATININE SERUM 1.86 MG/DL (0.60-1.30); MAGNESIUM 1.9 MG/DL (1.6-2.4); PHOSPHORUS 4.8 MG/DL (2.3-4.7); POTASSIUM 4.6 MMOL/L (3.6-5.0)
[2019-06-29] MEDS: MAGNESIUM 1 GM/100 ML IVPB 100 ML IV SCH (04:18)
[2019-06-29] MEDS: POTASSIUM CL 10MEQ/50ML IVPB 50 ML IV SCH (04:18)
[2019-06-29] MEDS: KCL 20 MEQ TAB (K-DUR) PO SCH (04:19)
[2019-06-29] MEDS: hydrALAZINE (APESOLINE) 20 MG/ML VIAL IV PRN (05:08)
[2019-06-29] MEDS ORDERED: BUMETANIDE 1 MG/4 ML (BUMEX) VIAL IV ONE (05:30)
--- NOTE | 2019-06-29 05:48 | Pulmonary Progress Note ---
Subjective Time Seen by a Provider: 05:47 Subjective/Events-last exam PT is sedated on vent. Sepsis Event Evaluation Height, Weight, BMI Height: 5'4.00" Weight: 246lbs. 2.0oz. 111.329924ac; 44.00 BMI Method:Stated Focused Exam Lactate Level 06/26/19 19:32: Lactic Acid Level 0.66 06/27/19 12:15: Lactic Acid Level 0.80 Exam Exam Vital Signs Date Time Temp Pulse Resp B/P (MAP) Pulse Ox O2 Delivery O2 Flow Rate FiO2 06/29/19 04:00 95 Mechanical Ventilator 30 06/29/19 04:00 70 17 166/91 (116) 95 Mechanical Ventilator 30.00 06/29/19 03:17 64 19 96 30 06/29/19 03:00 61 15 158/82 (107) 96 Mechanical Ventilator 30.00 06/29/19 02:00 59 16 152/71 (98) 97 Mechanical Ventilator 30.00 06/29/19 01:00 63 06/29/19 01:00 63 16 159/70 (99) 97 Mechanical Ventilator 30.00 06/29/19 00:37 68 154/64 06/29/19 00:00 94 Mechanical Ventilator 30 06/29/19 00:00 78 19 161/77 (105) 98 Mechanical Ventilator 30.00 06/28/19 23:00 73 17 149/64 (92) 95 Mechanical Ventilator 30.00 06/28/19 22:00 57 15 155/69 (97) 97 Mechanical Ventilator 30.00 06/28/19 21:00 69 25 156/67 (96) 96 Mechanical Ventilator 30.00 06/28/19 20:00 73 19 186/75 (112) 96 Mechanical Ventilator 30.00 06/28/19 20:00 36.7 06/28/19 20:00 96 Mechanical Ventilator 30 06/28/19 19:53 77 181/69 06/28/19 19:08 76 20 97 30 06/28/19 19:00 70 14 174/76 (108) 97 Mechanical Ventilator 30.00 06/28/19 19:00 70 06/28/19 18:16 67 195/97 06/28/19 18:00 63 36 195/97 (129) 97 Mechanical Ventilator 30.00 06/28/19 17:03 30 06/28/19 17:00 66 16 177/80 (112) 96 Mechanical Ventilator 30.00 06/28/19 16:00 36.0 06/28/19 16:00 69 15 164/76 (105) 96 Mechanical Ventilator 30.00 06/28/19 15:55 Mechanical Ventilator 30 06/28/19 15:36 67 15 96 30 06/28/19 15:00 67 16 169/81 (110) 97 Mechanical Ventilator 30.00 06/28/19 14:00 68 11 152/80 (104) 95 Mechanical Ventilator 30.00 06/28/19 13:00 75 06/28/19 13:00 75 15 161/80 (107) 95 Mechanical Ventilator 30.00 06/28/19 12:43 36.9 06/28/19 12:00 87 17 115/91 (99) 93 Mechanical Ventilator 30.00 06/28/19 11:50 97 Mechanical Ventilator 30 06/28/19 11:00 84 12 146/75 (98) 94 Mechanical Ventilator 30.00 06/28/19 10:10 77 33 90 30 06/28/19 10:00 81 10 140/66 (90) 95 Mechanical Ventilator 30.00 06/28/19 09:00 90 15 125/68 (87) 95 Mechanical Ventilator 30.00 06/28/19 08:06 81 15 93 30 06/28/19 08:00 94 Mechanical Ventilator 30 06/28/19 08:00 78 15 145/77 (99) 96 Mechanical Ventilator 30.00 06/28/19 07:43 74 26 96 30 06/28/19 07:37 74 26 96 30 06/28/19 07:00 59 06/28/19 07:00 59 14 150/71 (97) 97 Mechanical Ventilator 30.00 06/28/19 06:00 61 25 156/76 (102) 96 Mechanical Ventilator 30.00 I & O 06/29/19 07:00 Intake Total 2077.5 ml Output Total 1500 ml Balance 577.5 ml Height & Weight Height: 5'4.00" Weight: 246lbs. 2.0oz. 111.409102sq; 44.00 BMI Method:Stated General Appearance: Anxious, Chronically ill, Obese HEENT: PERRL/EOMI, Normal ENT Inspection, Pharynx Normal Neck: Normal Inspection Respiratory: Lungs Clear, No Respiratory Distress Cardiovascular: Regular Rate, Rhythm, No Murmur Capillary Refill: Less Than 3 Seconds Gastrointestinal: normal bowel sounds, non tender, soft Extremity: Swelling, Other (stasis dermatitis on bilateral lower extremities) Neurologic/Psychiatric: Alert Skin: Normal Color, Warm/Dry Lymphatic: No Adenopathy Results Lab Laboratory Tests 06/27/19 12:15 06/28/19 03:13 06/28/19 03:48 06/29/19 03:35 Assessment/Plan Assessment/Plan Acute on chronic respiratory failure -Continue ventilator care -Repeat vent weaning today. -Give bumex 2mg IV x 1 now Hypernatremia -Change IVF to D5W at 20cc/hr COPDAE -Solumedrol 40 IV Q 6 -Duoneb Q 4 Acute renal failure -IVF and monitor PNA -Continue Rocpehin, and Azithromycin and D/C vanco Hx of Diastolic CHF grade II - -Monitor Anemia -Check occult stool Thrombocytopenia -Monitor HTN -Add hydralazine PRN ESTRELLITA PITT DO Jun 29, 2019 05:48
[2019-06-29] MEDS: LEVOTHYROXINE 150 MCG (LEVOTHROID) TAB PO SCH (05:58)
[2019-06-29] MEDS: LEVOTHYROXINE 25 MCG (LEVOTHROID) TAB PO SCH (05:58)
[2019-06-29] MEDS: ZINC OXIDE 40% (Butt Paste MAX/Desitin) 57 gm TOP PRN ×2 (05:59→20:00)
[2019-06-29] MEDS: RT-BUDESONIDE NEBS 0.5 MG/2ML (PULMICORT) AMP INH SCH ×2 (06:31→18:09)
[2019-06-29 07:33] LABS: ABG BASE EXCESS 1.2 MMOL/L (-2.5-2.5); ABG OXYGEN SATURATION 94 % (94-100); ABG PCO2 45 MMHG (35-45); ABG PH 7.37 (7.37-7.43); ABG PO2 71 MMHG (79-93); ABG TCO2 27.5 MMOL/L (21.0-31.0)
[2019-06-29 07:34] LABS: ALLENS TEST YES-POS; INSPIRED O2 25%; PATIENT TEMP 36.1; VENTILATOR YES
[2019-06-29] MEDS ORDERED: BUMETANIDE 2.5 MG/10 ML (BUMEX) VIAL IV NR (07:45)
--- NOTE | 2019-06-29 08:13 | Diagnostic Imaging Report ---
INDICATION: Dyspnea. Comparison made with prior examination from 06/28/2019. FINDINGS: There is cardiomegaly. There is some venous congestion. There is no pneumothorax. Lines and tubes are in satisfactory position. IMPRESSION: Cardiomegaly and mild central pulmonary venous congestion. Dictated by: Dictated on workstation # [id number]
[2019-06-29] MEDS: PANTOPRAZOLE 40 MG (PROTONIX) VIAL IV SCH (08:16)
--- NOTE | 2019-06-29 09:45 | Progress Note - Hospitalist ---
Subjective HPI/CC On Admission Date Seen by Provider: Jun 29, 2019 Time Seen by Provider: 09:35 Subjective/Events-last exam Called to bedside regarding respiratory status. She was extubated this AM and is now on Vapotherm but not doing well. Discussed with her about goals of care and at first she wanted to be a DNR but then stated she wanted to be an "RN" which she states mean "Resuscitate Now." This includes reintubation, CPR, and even potentially trach. I did inform her of my medical opinion that if her heart starts CPR would likely be futile. She states she would still want CPR. Focused Exam Lactate Level 06/26/19 19:32: Lactic Acid Level 0.66 06/27/19 12:15: Lactic Acid Level 0.80 Objective Exam Vital Signs Vital Signs Date Time Temp Pulse Resp B/P (MAP) Pulse Ox O2 Delivery O2 Flow Rate FiO2 06/29/19 09:05 NIV Bilevel 25.00 06/29/19 08:00 86 16 96 06/29/19 06:35 25 06/29/19 04:00 36.0 Capillary Refill : Less Than 3 Seconds General Appearance: No Apparent Distress, WD/WN Respiratory: Lungs Clear, No Respiratory Distress Cardiovascular: Regular Rate, Rhythm, No Murmur Gastrointestinal: Normal Bowel Sounds, Soft Neurologic/Psychiatric: Alert, Oriented x3 Results/Procedures Lab Laboratory Tests 06/29/19 03:35 Patient resulted labs reviewed. Assessment/Plan Assessment and Plan Assess & Plan/Chief Complaint Acute respiratory failure patient on ventilator- Extubated this AM. Will place back on BiPAP. Acute renal failure on CKD: Improving, continue IVF COPD acute exacerbation- Continue steroids, SVNs, pulm consult Bilateral PNA: Continue Vanc and Rocephin Confusion- likely due to CO2 Narcosis Thrombocytopenia- New, trend- hold Lovenox for this- will check HIT ab- pending Anemia- Stable, transfuse for Hgb <7 Hypothyroidism- Cont Synthroid Hyperglycemia- SSI, likely iatrogenic from steroids Poor prognosis- Discussed as above. Will remain Full Code. Clinical Quality Measures DVT/VTE Risk/Contraindication: Risk Factor Score Per Nursin RFS Level Per Nursing on Admit: 4+=Very High BRANDIE OTT MD Jun 29, 2019 09:45
[2019-06-29] MEDS: VANCOMYCIN 1,750 MG/NS 500 ML IVPB IV SCH ×2 (12:57)
[2019-06-29] MEDS: aCETylcysteine 20% (MUCOMYST) 30ML SOLN VIAL INH SCH ×3 (15:26→23:07)
[2019-06-29] MEDS: cefTRIAXone 1,000 MG/SWFI 10 ML IV PUSH IV SCH ×2 (18:45)
[2019-06-29] MEDS: AZITHROMYCIN 250 MG TAB (ZITHROMAX) PO SCH (18:45)
[2019-06-29] MEDS: AZITHROMYCIN 500 MG/NS 250 ML IVPB IV SCH ×2 (22:47)
[2019-06-29] MEDS: HALOPERIDOL 5 MG/ML (HALDOL) AMP IV PRN (23:59)
[2019-06-30] VITALS (30 sets, daily range): BP systolic 124–190; BP diastolic 42–100
[2019-06-30] MEDS: HALOPERIDOL 5 MG/ML (HALDOL) AMP IV PRN ×2 (00:18→20:57)
--- NOTE | 2019-06-30 00:30 | NUR ---
This RN notified EICU that patient requesting something to help her sleep. Patient is increasingly anxious on BiPAP despite ordered Haldol given (see eMAR). This RN told patient that I would call doctor to see if we can get something to help her relax and patient states "I need to relax a lot". New orders received at this time.
[2019-06-30] MEDS: DEXMEDETOMIDINE 1,000 MCG/NS 250 ML IV SCH ×2 (00:50)
[2019-06-30] MEDS: RT-ALBUTEROL/IPRATROPIUM 3 ML (DUONEB) VIAL INH SCH ×6 (03:28→22:20)
[2019-06-30] MEDS: aCETylcysteine 20% (MUCOMYST) 30ML SOLN VIAL INH SCH ×6 (03:29→22:20)
[2019-06-30 03:50] LABS: ABG BASE EXCESS -0.3 MMOL/L (-2.5-2.5); ABG OXYGEN SATURATION 97 % (94-100); ABG PCO2 59 MMHG (35-45); ABG PO2 86 MMHG (79-93); ABG TCO2 27.8 MMOL/L (21.0-31.0); ALLENS TEST POSITIVE; BASOPHILS % (AUTO) 0 % (0-10); EOSINOPHILS % (AUTO) 0 % (0-10); HEMATOCRIT 27 % (35-52); HEMOGLOBIN 7.6 G/DL (11.5-16.0); INSPIRED O2 25%; LYMPHOCYTES # (AUTO) 0.1 X 10^3 (1.0-4.0); LYMPHOCYTES % (AUTO) 3 % (12-44); MEAN CORPUSCULAR HEMOGLOBIN 28 PG (25-34); MEAN CORPUSCULAR HGB CONC 28 G/DL (32-36); MEAN CORPUSCULAR VOLUME 99 FL (80-99); MEAN PLATELET VOLUME 10.9 FL (7.4-10.4); MONOCYTES # (AUTO) 0.1 X 10^3 (0.0-1.0); MONOCYTES % (AUTO) 1 % (0-12); NEUTROPHILS % (AUTO) 96 % (42-75); PATIENT TEMP 36.4; PLATELET COUNT 65 10^3/uL (130-400); RED CELL DISTRIBUTION WIDTH 16.7 % (10.0-14.5); VENTILATOR NO; WHITE BLOOD COUNT 5.2 10^3/uL (4.3-11.0)
[2019-06-30 03:51] LABS: ABG PH 7.26 (7.37-7.43)
[2019-06-30] MEDS ORDERED: BUMETANIDE 1 MG/4 ML (BUMEX) VIAL IV ONE (04:15)
[2019-06-30 04:17] LABS: CALCIUM 7.9 MG/DL (8.5-10.1); CREATININE SERUM 1.67 MG/DL (0.60-1.30); PHOSPHORUS 4.8 MG/DL (2.3-4.7); POTASSIUM 3.7 MMOL/L (3.6-5.0)
[2019-06-30] MEDS ORDERED: LORazepam INJ 2 MG/ML (ATIVAN) VIAL IV PRN (05:00)
[2019-06-30] MEDS: POTASSIUM CL 10MEQ/50ML IVPB 50 ML IV SCH (06:37)
[2019-06-30] MEDS: MAGNESIUM 1 GM/100 ML IVPB 100 ML IV SCH (06:37)
[2019-06-30] MEDS: KCL 20 MEQ TAB (K-DUR) PO SCH (06:37)
[2019-06-30] MEDS: inSUlin ASPART (NovoLOG) 1 UNIT/0.01 ML (CHARGE PER UNIT) SC SCH ×3 (06:37→17:38)
[2019-06-30] MEDS: LEVOTHYROXINE 25 MCG (LEVOTHROID) TAB PO SCH (06:38)
[2019-06-30] MEDS: PROPOFOL DRIP (ICU) 100 ML IV SCH (06:38)
[2019-06-30] MEDS: LEVOTHYROXINE 150 MCG (LEVOTHROID) TAB PO SCH (06:38)
[2019-06-30] MEDS: methylPREDNISolone 40 MG/ML (Solu-MEDROL) VIAL IV SCH ×3 (06:46→18:25)
[2019-06-30 07:08] LABS: ABG OXYGEN SATURATION 98 % (94-100); ABG PCO2 50 MMHG (35-45); ABG PO2 91 MMHG (79-93); ABG TCO2 27.1 MMOL/L (21.0-31.0)
[2019-06-30 07:10] LABS: ALLENS TEST POSITIVE; INSPIRED O2 25%; VENTILATOR NO
[2019-06-30 07:11] LABS: ABG PH 7.32 (7.37-7.43)
--- NOTE | 2019-06-30 07:35 | Diagnostic Imaging Report ---
EXAMINATION: Chest radiograph, portable AP view. DATE: 06/30/2019 4:21 AM hours. INDICATION: 68-year-old female, dyspnea. COMPARISON: June 29, 2019. FINDINGS: There is a right-sided PICC line with tip overlying the lower SVC. Stable overall appearance of the cardiomediastinal silhouette. The previously noted endotracheal tube and nasogastric tube have been removed. There is no identified pneumothorax. There are bilateral interstitial and alveolar opacities which are grossly unchanged. IMPRESSION: 1. Bilateral interstitial and alveolar opacities which are grossly unchanged. 2. Interval removal of the previously noted endotracheal tube and nasogastric tube. Dictated by: Dictated on workstation # [id number]
--- NOTE | 2019-06-30 07:42 | Progress Note ---
Subjective Time Seen by a Provider: 07:40 Subjective/Events-last exam Spoke to patient this morning. Patient off the vent. Patient on BiPAP and Vapotherm. Patient has to listen to nurses Focused Exam Lactate Level 06/27/19 12:15: Lactic Acid Level 0.80 06/30/19 05:00: Lactic Acid Level 0.36L Lactic Acid Level Laboratory Tests Test 06/30/19 05:00 Lactic Acid Level 0.36 MMOL/L (0.50-2.00) L Objective Exam Vital Signs Date Time Temp Pulse Resp B/P (MAP) Pulse Ox O2 Delivery O2 Flow Rate FiO2 06/30/19 06:00 81 11 152/76 (101) 93 NIV Bilevel 25.00 06/30/19 05:00 75 14 146/65 (92) 89 NIV Bilevel 25.00 06/30/19 04:00 86 16 146/71 (96) 94 NIV Bilevel 25.00 06/30/19 04:00 92 NIV Bilevel 28 06/30/19 03:33 81 21 94 25.00 06/30/19 03:00 81 52 137/56 (83) 92 NIV Bilevel 25.00 06/30/19 02:00 86 40 141/69 (93) 94 NIV Bilevel 25.00 06/30/19 01:00 98 139/68 (91) 96 NIV Bilevel 25.00 06/30/19 00:44 100 06/30/19 00:00 37.0 NIV Bilevel 21.00 06/30/19 00:00 92 NIV Bilevel 28 06/30/19 00:00 101 19 137/74 (95) 96 NIV Bilevel 25.00 06/29/19 23:12 102 17 96 25.00 06/29/19 23:00 103 19 134/83 (100) 92 NIV Bilevel 25.00 06/29/19 22:00 90 19 127/77 (94) 95 NIV Bilevel 25.00 06/29/19 21:00 85 24 115/74 (88) 94 NIV Bilevel 25.00 06/29/19 20:23 36.4 06/29/19 20:00 92 NIV Bilevel 28 06/29/19 20:00 36.1 06/29/19 20:00 85 24 107/80 (89) 95 NIV Bilevel 25.00 06/29/19 19:00 90 06/29/19 19:00 90 23 107/78 (88) 97 NIV Bilevel 25.00 06/29/19 18:10 94 18 94 25.00 06/29/19 18:00 84 46 102/72 (82) 94 NIV Bilevel 25.00 06/29/19 17:00 93 33 170/82 (111) 97 NIV Bilevel 25.00 06/29/19 16:00 96 39 167/85 (112) 99 NIV Bilevel 25.00 06/29/19 16:00 92 NIV Bilevel 28 06/29/19 15:37 96 28 96 21.00 06/29/19 15:00 93 32 167/91 (116) 93 NIV Bilevel 25.00 06/29/19 14:57 NIV Bilevel 25.00 06/29/19 14:00 87 160/90 (113) 91 Vapotherm 40.00 28.00 06/29/19 13:00 101 158/77 (104) 91 Vapotherm 40.00 28.00 06/29/19 13:00 90 06/29/19 12:00 36.3 06/29/19 12:00 92 Vapotherm 40.00 28 06/29/19 12:00 87 20 154/77 (102) 91 Vapotherm 40.00 28.00 06/29/19 11:00 87 18 147/86 (106) 96 Vapotherm 40.00 28.00 06/29/19 10:31 Vapotherm 40.00 28.00 06/29/19 10:00 87 20 138/124 (129) 94 NIV Bilevel 25.00 06/29/19 09:39 92 23 97 21.00 06/29/19 09:05 NIV Bilevel 25.00 06/29/19 09:00 91 37 144/82 (102) 100 High Flow N/C 3.00 06/29/19 08:00 92 High Flow N/C 5.00 06/29/19 08:00 86 16 96 High Flow N/C 3.00 06/29/19 07:45 High Flow N/C 3.00 I & O 06/30/19 07:00 Intake Total 0 ml Output Total 1800 ml Balance -1800 ml Capillary Refill : Less Than 3 Seconds General Appearance: No Apparent Distress, WD/WN HEENT: Normal ENT Inspection Neck: Full Range of Motion, Normal Inspection Respiratory: No Accessory Muscle Use, No Respiratory Distress, Decreased Breath Sounds, Other (On BiPAP this morning) Cardiovascular: Regular Rate, Rhythm, No Murmur Gastrointestinal: non tender, soft Results Lab Laboratory Tests 06/30/19 03:40 Laboratory Tests 06/29/19 11:21: Glucometer 153H 06/29/19 17:18: Glucometer 118H 06/29/19 22:59: Glucometer 130H 06/30/19 03:40: White Blood Count 5.2, Red Blood Count 2.72L, Hemoglobin 7.6L, Hematocrit 27L, Mean Corpuscular Volume 99, Mean Corpuscular Hemoglobin 28, Mean Corpuscular Hemoglobin Concent 28L, Red Cell Distribution Width 16.7H, Platelet Count 65L, Mean Platelet Volume 10.9H, Neutrophils (%) (Auto) 96H, Lymphocytes (%) (Auto) 3L, Monocytes (%) (Auto) 1, Eosinophils (%) (Auto) 0, Basophils (%) (Auto) 0, Neutrophils # (Auto) 5.0, Lymphocytes # (Auto) 0.1L, Monocytes # (Auto) 0.1, Eosinophils # (Auto) 0.0, Basophils # (Auto) 0.0, Blood Gas Puncture Site LEFT RADIAL, Blood Gas Patient Temperature 36.4, Arterial Blood pH 7.26*L, Arterial B lood Partial Pressure CO2 59H, Arterial Blood Partial Pressure O2 86, Arterial Blood HCO3 26, Arterial Blood Total CO2 27.8, Arterial Blood Oxygen Saturation 97, Arterial Blood Base Excess -0.3, Clif Test POSITIVE, Blood Gas Ventilator Setting NO, Blood Gas Inspired Oxygen 25%, Sodium Level 147H, Potassium Level 3.7, Chloride Level 112H, Carbon Dioxide Level 23, Anion Gap 12, Blood Urea Nitrogen 39H, Creatinine 1.67H, Estimat Glomerular Filtration Rate 30, BUN/Creatinine Ratio 23, Glucose Level 140H, Calcium Level 7.9L, Phosphorus Level 4.8H, Magnesium Level 2.0, B-Type Natriuretic Peptide 977.8H, Triglycerides Level 81, Thyroid Stimulating Hormone (TSH) 2.09 06/30/19 05:00: Lactic Acid Level 0.36L 06/30/19 06:55: Blood Gas Puncture Site LEFT WRIST, Blood Gas Patient Temperature 36.0, Arterial Blood pH 7.32*L, Arterial Blood Partial Pressure CO2 50H, Arterial Blood Partial Pressure O2 91, Arterial Blood HCO3 26, Arterial Blood Total CO2 27.1, Arterial Blood Oxygen Saturation 98, Arterial Blood Base Excess 0.0, Clif Test POSITIVE, Blood Gas Ventilator Setting NO, Blood Gas Inspired Oxygen 25% Microbiology 06/26/19 Blood Culture - Preliminary, Resulted No growth Assessment/Plan Assessment/Plan Assess & Plan/Chief Complaint Acute and chronic respiratory failure. COPD with acute exacerbation. Acute renal failure. Pneumonia or Thrombocytopenia. Hypertension. Hypoxia Clinical Quality Measures Admission Status Admission Dx COPD with acute exacerbation left lower lobe pneumonia renal insufficiency acute short of breath acute respiratory failure thrombocytopenia hypertension hyperlipidemia DVT/VTE Risk/Contraindication: Risk Factor Score Per Nursin RFS Level Per Nursing on Admit: 4+=Very High AURORA STACK DO Jun 30, 2019 07:42
[2019-06-30] MEDS ORDERED: SODIUM BICARB 8.4% 50 MEQ/50 ML VIAL IV NR (07:45)
--- NOTE | 2019-06-30 07:56 | NUR ---
Pt refused position changes throughout the night except for at 0200 patient did allow a full bed change and turn to the right side with a pillow under her bottom. Pt insisted on laying on her back despite pt education on bed sores and importance of turning. Will continue to monitor.
[2019-06-30] MEDS: PANTOPRAZOLE 40 MG (PROTONIX) VIAL IV SCH (08:17)
--- NOTE | 2019-06-30 08:51 | Speech Therapy Progress Note ---
Therapy Progress Note ST attempted to complete the Bedside Dysphagia Evaluation this am. Patient's health is such that she was not able to participate at this time. ST to follow up at a later time. PEDRO LAGOS Jun 30, 2019 08:51
[2019-06-30] MEDS: RT-BUDESONIDE NEBS 0.5 MG/2ML (PULMICORT) AMP INH SCH ×2 (09:00→18:40)
[2019-06-30] MEDS ORDERED: TROUGH ORDER-PHARMACY XX NR (09:21)
--- NOTE | 2019-06-30 09:29 | Diagnostic Imaging Report ---
PROCEDURE: US Venous Lower Ext Memo. TECHNIQUE: Multiple real-time grayscale images were obtained over the lower extremities in various projections, bilaterally. Additional duplex Doppler and color Doppler images were also obtained. INDICATION: Leg swelling. FINDINGS: The common femoral veins and proximal superficial femoral veins have good color filling and compressibility with phasic flow and normal response to augmentation. The distal superficial femoral veins cannot be seen because of patient body habitus. The popliteal veins were seen and appeared normal. IMPRESSION: Limited study because of patient body habitus. The common femoral, proximal superficial femoral and popliteal veins appeared normal bilaterally. The calf veins could not be adequately seen to evaluate. Dictated by: Dictated on workstation # [id number]
--- NOTE | 2019-06-30 10:31 | Physical Therapy Evaluation ---
PT Evaluation-General Medical Diagnosis Admission Date Jun 27, 2019 at 09:06 Medical Diagnosis: pneumonia COPD/CO2 retension Onset Date: Jun 27, 2019 Therapy Diagnosis Therapy Diagnosis: debility/weakness Height/Weight Height (Feet): 5 Height (Inches): 4.00 Weight (Pounds): 246 Weight (Ounces): 2.0 Precautions Precautions/Isolations: Fall Prevention, Standard Precautions Weight Bear Status Right Lower Extremity: Right Weight Bearing/Tolerated Left Lower Extremity: Left Weight Bearing/Tolerated Referral Physician: Meenakshi Reason for Referral: Evaluation/Treatment Medical History Pertinent Medical History: Arthritis, COPD, DM, HTN, Neuropathy, Renal Insufficiency Current History ER via EMS secondary to AMS/respiratory issues Reviewed History: Yes Social History Home: [facility] Prior Prior Level of Function SCALE: Activities may be completed with or without assistive devices. 8-Mkwbuwzfto-vixwopq completes the activity by him/herself with no assistance from a helper. 5-Set-up or Clean-up Assistance-helper sets up or cleans up; patient completes activity. [place] assists only prior to or following the activity. 4-Supervision or Touching Assistance-helper provides verbal cues and/or touching/steadying and/or contact guard assistance as patient completes activity. Assistance may be provided throughout the activity or intermittently. 3-Partial/Moderate Assistance-helper does LESS THAN HALF the effort. [place] lifts, holds or supports trunk or limbs, but provides less than half the effort. 2-Substantial/Maximal Assistance-helper does MORE THAN HALF the effort. [place] lifts or holds trunk or limbs and provides more than half the effort. 7-Vzspbsyet-tazcbp does ALL the effort. Patient does none of the effort to complete the activity. Or, the assistance of 2 or more helpers is required for the patient to complete the activity. If activity was not attempted, code reason: 7-Patient Refused. 9-Not Applicable-not attempted and the patient did not perform the activity before the current illness, exacerbation or injury. 10-Not Attempted due to Environmental Limitations-(lack of equipment, weather restraints, etc.). 88-Not Attempted due to Medical Conditions or Safety Concerns. Bed Mobility: 1 Transfers (B,C,W/C): 1 Gait: 9 Stairs: 9 Wheelchair Mobility: 3 Indoor Mobility (Ambulation): Not [place] Stairs: Not [place] Prior Devices Use: Manual wheelchair PT Evaluation-Current Subjective Patient adamantly declined EOB activity. Patient reports to just perform restorative therapy. Objective Patient Orientation: Person, Time, Situation Attachments: Oxygen (BiPap), Hines Catheter, IV ROM/Strength ROM Lower Extremities diminished ROM due to edema Strength Lower Extremities 2-/5 grossly bilateral LE Integumentary/Posture Integumentary refer to nursing notes Bladder Incontinence: Hines Cath Neuromuscular (Tone, Coordination, Reflexes) diminished due to inactivity PLOF Sensory Vision: Functional Hearing: Functional Sensation Right Lower Extremit: Impaired Sensation Left Lower Extremity: Impaired Transfers will require Kristina Lift for safe transfers due to weakness Gait Does the Patient Walk?: No and Walking Goal NOT indicated Assessment/Needs 68 y.o. female, will be seen short term by skilled PT to address functional strength and mobility to improve current LOF. Patient is severely debility and will require continued extended care facility for full recovery. Rehab Potential: Poor PT Chcf Goals Chcf Goals PT [employer] Specialist Goals Time Frame: Jul 12, 2019 Roll Left & Right (QC): 2 Sit to Lying (QC): 2 Lying-Sitting on Side/Bed(QC): 2 Chair/Oxq-cl-Pictj Xfer(QC): 1 PT Plan Problem List Problem List: Activity Tolerance, Functional Strength, Safety, Balance, Transfer, Bed Mobility, ROM Treatment/Plan Treatment Plan: Continue Plan of Care Treatment Plan: Bed Mobility, Education, Functional Activity Jose J, Functional Strength, Safety, Therapeutic Exercise, Transfers Treatment Duration: Jul 12, 2019 Frequency: 5 times per week Estimated Hrs Per Day: .25 hour per day Patient and/or Family Agrees t: Yes Time/GCodes Time In: 847 Time Out: 857 Total Billed Treatment Time: 10 Total Billed Treatment 1 visit EVMod 10 min MIGDALIA OSORIO PT Jun 30, 2019 10:31
--- NOTE | 2019-06-30 13:20 | Occupational Therapy Eval ---
OT Evaluation-General/PLF Medical Diagnosis Admission Date Jun 27, 2019 at 09:06 Medical Diagnosis: pneumonia COPD/CO2 retension Onset Date: Jun 27, 2019 Therapy Diagnosis Therapy Diagnosis: Weakness Height/Weight Height (Feet): 5 Height (Inches): 4.00 Weight (Pounds): 246 Weight (Ounces): 2.0 Precautions Precautions/Isolations: Fall Prevention, Standard Precautions Referral Physician: Meenakshi Referral Reason: Activity Tolerance, Self Care, Evaluation/Treatment, Strengthening/ROM Medical History Pertinent Medical History: Arthritis, COPD, DM, HTN, Neuropathy, Renal Insufficiency Additional Medical History Hysterectomy, Tracheostomy, A-fib Current History Pt. extubated and now on bipap/vapotherm. Reviewed History: Yes Social History Home: Sn[facility] Entry Into Home: Level Entry ADL-Prior Level of Function SCALE: Activities may be completed with or without assistive devices. 2-Dbgzrsvvbl-jbdldus completes the activity by him/herself with no assistance from a helper. 5-Set-up or Clean-up Assistance-helper sets up or cleans up; patient completes activity. [place] assists only prior to or following the activity. 4-Supervision or Touching Assistance-helper provides verbal cues and/or touching/steadying and/or contact guard assistance as patient completes activity. Assistance may be provided throughout the activity or intermittently. 3-Partial/Moderate Assistance-helper does LESS THAN HALF the effort. [place] lifts, holds or supports trunk or limbs, but provides less than half the effort. 2-Substantial/Maximal Assistance-helper does MORE THAN HALF the effort. [place] lifts or holds trunk or limbs and provides more than half the effort. 1-Ayuipvflc-bvujrq does ALL the effort. Patient does none of the effort to complete the activity. Or, the assistance of 2 or more helpers is required for the patient to complete the activity. If activity was not attempted, code reason: 7-Patient Refused. 9-Not Applicable-not attempted and the patient did not perform the activity before the current illness, exacerbation or injury. 10-Not Attempted due to Environmental Limitations-(lack of equipment, weather restraints, etc.). 88-Not Attempted due to Medical Conditions or Safety Concerns. ADL PLOF Comments Pt. states that she receives assistance with ADL skills at [place]. States that she is in a wheelchair but is able to stand and pivot from place to place. Self Care: Needed Some Help Functional Cognition: Unknown OT Current Status Subjective No pain reported. Appearance Pt. in bed with bipap mask on. Mental Status/Objective Patient Orientation: Person Attachments: Hines Catheter, IV, Oxygen, Telemetry Current Hand Dominance: Right Upper Extremity ROM WFL at bed level. ADL-Treatment Pt. in bed with bipap mask on and vapotherm. Spoke with nurse before seeing pt. Nursing okay for OT to talk with pt. and attempt activity if tolerated. Let this therapist know that pt. de-sats easily. Unable to remove mask. Pt. is able to verbalize somewhat to OT through mask. Demonstrate full UE mobility with cues. This is difficult as pt. has multiple lines and tubes, and sats drop with movement from 97%-91%. Sats recover quickly however. Pt. verbalizes that she needs moisture in her mouth. OT able to slightly doff mask to swab mouth several times. Pt. does not attempt to hold swab. OT offers to adjust/re position pt. Pt. declines adamantly. OT does reposition right LE for heel protection. All needs met. Education OT Patient Education: Correct positioning, Progress toward Goal/Update tx plan, Purpose of tx/functional activities, Reviewed precautions, Rehab process Teaching Recipient: Patient Teaching Methods: Demonstration, Discussion Response to Teaching: Verbalize Understanding, Return Demonstration OT Short Term Goals Short Term Goals Time Frame: Jul 14, 2019 Eatin (When cleared.) Oral hygiene: 3 OT Detention Goals Detention Goals Time Frame: Jul 21, 2019 Eating (QC): 4 Oral Hygiene (QC): 4 Toileting Hygiene (QC): 4 Upper Body Dressing (QC): 4 Additional Goals: 1-Demonstrate ADL Tasks, 2-Verbalize Understanding, 3- ImproveStrength/Jose J 1=Demonstrate adherence to instructed precautions during ADL tasks. 2=Patient will verbalize/demonstrate understanding of assistive devices/modifications for ADL. 3=Patient will improve strength/tolerance for activity to enable patient to perform ADL's. OT Education/Plan Problem List/Assessment Assessment: Decreased Activ Tolerance, Decreased UE Strength, Dependent Transfers, Impaired Bed Mobility, Impaired Coordination, Impaired Funct Balance, Impaired I ADL's, Impaired Self-Care Skills Discharge Recommendations Plan/Recommendations: Continue POC Therapy Discharge Recommendati: 24 Hour Supervision, Post Acute OT Treatment Plan/Plan of Care Treatment,Training & Education: Yes Patient would benefit from OT for education, treatment and training to promote independence in ADL's, mobility, safety and/or upper extremity function for ADL's. Plan of Care: ADL Retraining, Functional Mobility, UE Funct Exercise/Act Treatment Duration: Jul 21, 2019 Frequency: 5 times per week Estimated Hrs Per Day: .25 hour per day Agreement: Yes Rehab Potential: Fair Time/GCodes Start Time: 10:45 Stop Time: 11:00 Total Time Billed (hr/min): 15 Billed Treatment Time 1, ADDISON WAITE OT Jun 30, 2019 13:20
--- NOTE | 2019-06-30 14:56 | NUR ---
PT REQUESTING MOUTH SWABS, CONTINUES TO BE UN ABLE TO TOLERATE BIPAP MASK BEING REMOVED. PT MOUTH SWABBED TWICE. PT EDUCATED ON ASPIRATION RISKS OF WATER MOUTH SWABS AND BIPAP MASK.
--- NOTE | 2019-06-30 15:00 | NUR ---
Pt shared she was thankful to see me and requested prayer. She shared that she believes in all religions and wants all the support and help she can get because she is not ready to . She shared that when asked if she wanted to be a DNR, she responded "do everything"
[2019-06-30] MEDS: cefTRIAXone 1,000 MG/SWFI 10 ML IV PUSH IV SCH ×2 (18:25)
[2019-06-30] MEDS: AZITHROMYCIN 500 MG/NS 250 ML IVPB IV SCH ×2 (20:57)
[2019-07-01] VITALS (26 sets, daily range): BP systolic 139–188; BP diastolic 48–105
[2019-07-01] MEDS: inSUlin ASPART (NovoLOG) 1 UNIT/0.01 ML (CHARGE PER UNIT) SC SCH ×5 (00:18→23:22)
[2019-07-01] MEDS: methylPREDNISolone 40 MG/ML (Solu-MEDROL) VIAL IV SCH ×5 (00:18→23:22)
[2019-07-01] MEDS: aCETylcysteine 20% (MUCOMYST) 30ML SOLN VIAL INH SCH ×6 (01:22→21:29)
[2019-07-01] MEDS: RT-ALBUTEROL/IPRATROPIUM 3 ML (DUONEB) VIAL INH SCH ×6 (01:22→21:29)
[2019-07-01] MEDS: DEXMEDETOMIDINE 1,000 MCG/NS 250 ML IV SCH ×2 (01:44)
[2019-07-01 03:17] LABS: BASOPHILS % (AUTO) 0 % (0-10); EOSINOPHILS % (AUTO) 0 % (0-10); HEMATOCRIT 28 % (35-52); LYMPHOCYTES # (AUTO) 0.2 X 10^3 (1.0-4.0); LYMPHOCYTES % (AUTO) 4 % (12-44); MEAN CORPUSCULAR HEMOGLOBIN 28 PG (25-34); MEAN CORPUSCULAR HGB CONC 29 G/DL (32-36); MEAN CORPUSCULAR VOLUME 98 FL (80-99); MEAN PLATELET VOLUME 10.4 FL (7.4-10.4); MONOCYTES # (AUTO) 0.1 X 10^3 (0.0-1.0); MONOCYTES % (AUTO) 3 % (0-12); NEUTROPHILS # (AUTO) 4.3 X 10^3 (1.8-7.8); NEUTROPHILS % (AUTO) 93 % (42-75); PLATELET COUNT 70 10^3/uL (130-400); RED CELL DISTRIBUTION WIDTH 16.2 % (10.0-14.5); WHITE BLOOD COUNT 4.6 10^3/uL (4.3-11.0)
[2019-07-01 03:36] LABS: CALCIUM 8.1 MG/DL (8.5-10.1); CREATININE SERUM 1.53 MG/DL (0.60-1.30); POTASSIUM 3.4 MMOL/L (3.6-5.0)
[2019-07-01 04:08] LABS: ABG BASE EXCESS 2.8 MMOL/L (-2.5-2.5); ABG OXYGEN SATURATION 90 % (94-100); ABG PCO2 50 MMHG (35-45); ABG PH 7.36 (7.37-7.43); ABG PO2 58 MMHG (79-93); ABG TCO2 29.6 MMOL/L (21.0-31.0)
[2019-07-01 04:10] LABS: ALLENS TEST POSITIVE; INSPIRED O2 25%; PATIENT TEMP 36.3; VENTILATOR NO
[2019-07-01] MEDS ORDERED: BUMETANIDE 1 MG/4 ML (BUMEX) VIAL ONE (05:06)
[2019-07-01] MEDS ORDERED: 1/2 NS W/KCL 20 MEQ/L 1,000 ML IV ONE (05:07)
[2019-07-01] MEDS: 1/2 NS W/KCL 20 MEQ/L 1,000 ML IV SCH (05:12)
[2019-07-01] MEDS: LEVOTHYROXINE 25 MCG (LEVOTHROID) TAB PO SCH (05:13)
[2019-07-01] MEDS: LEVOTHYROXINE 150 MCG (LEVOTHROID) TAB PO SCH (05:13)
[2019-07-01] MEDS: KCL 20 MEQ TAB (K-DUR) PO SCH (05:13)
[2019-07-01] MEDS: POTASSIUM CL 10MEQ/50ML IVPB 50 ML IV SCH ×7 (05:13→07:18)
[2019-07-01] MEDS ORDERED: BUMETANIDE 1 MG/4 ML (BUMEX) VIAL IV ONE (05:15)
[2019-07-01] MEDS: MAGNESIUM 1 GM/100 ML IVPB 100 ML IV SCH (05:15)
--- NOTE | 2019-07-01 07:29 | Pulmonary Progress Note ---
Subjective Date Seen by a Provider: Jun 30, 2019 (Late note) Time Seen by a Provider: 07:27 Subjective/Events-last exam PT is currently on BiPAP. Sepsis Event Evaluation Height, Weight, BMI Height: 5'4.00" Weight: 246lbs. 2.0oz. 111.096723ws; 44.00 BMI Method:Stated Focused Exam Lactate Level 06/30/19 05:00: Lactic Acid Level 0.36L Exam Exam Vital Signs Date Time Temp Pulse Resp B/P (MAP) Pulse Ox O2 Delivery O2 Flow Rate FiO2 07/01/19 06:40 Vapotherm 40.00 25.00 07/01/19 06:39 Vapotherm 40.00 40.00 07/01/19 06:00 71 19 157/101 (119) 95 NIV Bilevel 25.00 07/01/19 05:00 71 33 168/90 (116) 91 NIV Bilevel 25.00 07/01/19 04:15 72 14 156/80 (105) 93 NIV Bilevel 25.00 07/01/19 04:00 92 NIV Bilevel 25 07/01/19 04:00 36.0 07/01/19 03:00 62 13 167/80 (109) 94 NIV Bilevel 25.00 07/01/19 02:00 64 13 168/82 (110) 94 NIV Bilevel 25.00 07/01/19 01:22 72 25 94 25.00 07/01/19 01:00 67 14 164/74 (104) 94 NIV Bilevel 25.00 07/01/19 00:37 64 07/01/19 00:00 92 NIV Bilevel 25 07/01/19 00:00 77 17 158/75 (102) 95 NIV Bilevel 25.00 07/01/19 00:00 36.3 06/30/19 23:00 75 20 161/73 (102) 94 NIV Bilevel 25.00 06/30/19 22:20 73 17 92 25.00 06/30/19 22:00 77 19 155/75 (101) 94 NIV Bilevel 25.00 06/30/19 21:00 76 19 159/83 (108) 92 NIV Bilevel 25.00 06/30/19 20:00 85 24 174/92 (119) 93 NIV Bilevel 25.00 06/30/19 20:00 35.9 06/30/19 20:00 92 NIV Bilevel 25 06/30/19 19:00 77 22 180/88 (118) 95 NIV Bilevel 25.00 06/30/19 18:43 88 06/30/19 18:40 82 29 93 25.00 06/30/19 18:00 77 20 183/89 (120) 93 NIV Bilevel 25.00 06/30/19 17:00 83 23 190/97 (128) 91 NIV Bilevel 25.00 06/30/19 16:00 85 24 180/84 (116) 93 NIV Bilevel 25.00 06/30/19 16:00 92 NIV Bilevel 28 06/30/19 15:09 79 21 98 25.00 06/30/19 15:00 81 131/100 (110) 97 NIV Bilevel 25.00 06/30/19 14:00 84 7 124/91 (102) 93 NIV Bilevel 25.00 06/30/19 13:00 86 24 175/93 (120) 91 NIV Bilevel 25.00 06/30/19 12:29 86 06/30/19 12:00 92 NIV Bilevel 28 06/30/19 12:00 35.7 06/30/19 12:00 81 16 173/92 (119) 92 NIV Bilevel 25.00 06/30/19 11:04 87 21 93 25.00 06/30/19 11:00 91 22 182/100 (127) 93 NIV Bilevel 25.00 06/30/19 10:00 90 26 163/93 (116) 95 NIV Bilevel 25.00 06/30/19 09:01 86 28 95 25.00 06/30/19 09:00 82 24 147/72 (97) 95 NIV Bilevel 25.00 06/30/19 08:00 92 NIV Bilevel 28 06/30/19 08:00 75 30 171/78 (109) 97 NIV Bilevel 25.00 06/30/19 07:52 36.3 I & O 07/01/19 07:00 Intake Total 75 ml Output Total 1750 ml Balance -1675 ml Height & Weight Height: 5'4.00" Weight: 246lbs. 2.0oz. [id number]; 44.00 BMI Method:Stated General Appearance: Anxious, Chronically ill, Obese HEENT: PERRL/EOMI, Normal ENT Inspection, Pharynx Normal Neck: Normal Inspection Respiratory: Lungs Clear, No Respiratory Distress Cardiovascular: Regular Rate, Rhythm, No Murmur Capillary Refill: Less Than 3 Seconds Gastrointestinal: normal bowel sounds, non tender, soft Extremity: Swelling, Other (stasis dermatitis on bilateral lower extremities) Neurologic/Psychiatric: Alert Skin: Normal Color, Warm/Dry Lymphatic: No Adenopathy Results Lab Laboratory Tests 06/30/19 03:40 07/01/19 03:12 Assessment/Plan Assessment/Plan Acute on chronic respiratory failure -Trial pt to Vapotherm COPDAE -Solumedrol 40 IV Q 6 -Duoneb Q 4 Acute renal failure -IVF and monitor PNA -Continue Rocpehin, and Azithromycin Hx of Diastolic CHF grade II - -Monitor Anemia -Check occult stool Thrombocytopenia -Monitor HTN -Add hydralazine PRN ESTRELLITA PITT DO Jul 01, 2019 07:28
--- NOTE | 2019-07-01 07:33 | Progress Note ---
Subjective Time Seen by a Provider: 07:30 Subjective/Events-last exam Patient feeling better today. Patient off BiPAP this morning and put on Vapotherm. GFR improved to 34 from 30. Hemoglobin 8 stable. Patient has electrolyte imbalance. Hypertension. Platelet count 70,000 inching up. Patient voices no complaints this morning. Venous Doppler negative at what can be seen Focused Exam Lactate Level 06/30/19 05:00: Lactic Acid Level 0.36L Objective Exam Vital Signs Date Time Temp Pulse Resp B/P (MAP) Pulse Ox O2 Delivery O2 Flow Rate FiO2 07/01/19 06:40 Vapotherm 40.00 25.00 07/01/19 06:39 Vapotherm 40.00 40.00 07/01/19 06:00 71 19 157/101 (119) 95 NIV Bilevel 25.00 07/01/19 05:00 71 33 168/90 (116) 91 NIV Bilevel 25.00 07/01/19 04:15 72 14 156/80 (105) 93 NIV Bilevel 25.00 07/01/19 04:00 92 NIV Bilevel 25 07/01/19 04:00 36.0 07/01/19 03:00 62 13 167/80 (109) 94 NIV Bilevel 25.00 07/01/19 02:00 64 13 168/82 (110) 94 NIV Bilevel 25.00 07/01/19 01:22 72 25 94 25.00 07/01/19 01:00 67 14 164/74 (104) 94 NIV Bilevel 25.00 07/01/19 00:37 64 07/01/19 00:00 92 NIV Bilevel 25 07/01/19 00:00 77 17 158/75 (102) 95 NIV Bilevel 25.00 07/01/19 00:00 36.3 06/30/19 23:00 75 20 161/73 (102) 94 NIV Bilevel 25.00 06/30/19 22:20 73 17 92 25.00 06/30/19 22:00 77 19 155/75 (101) 94 NIV Bilevel 25.00 06/30/19 21:00 76 19 159/83 (108) 92 NIV Bilevel 25.00 06/30/19 20:00 85 24 174/92 (119) 93 NIV Bilevel 25.00 06/30/19 20:00 35.9 06/30/19 20:00 92 NIV Bilevel 25 06/30/19 19:00 77 22 180/88 (118) 95 NIV Bilevel 25.00 06/30/19 18:43 88 06/30/19 18:40 82 29 93 25.00 06/30/19 18:00 77 20 183/89 (120) 93 NIV Bilevel 25.00 06/30/19 17:00 83 23 190/97 (128) 91 NIV Bilevel 25.00 06/30/19 16:00 85 24 180/84 (116) 93 NIV Bilevel 25.00 06/30/19 16:00 92 NIV Bilevel 28 06/30/19 15:09 79 21 98 25.00 06/30/19 15:00 81 131/100 (110) 97 NIV Bilevel 25.00 06/30/19 14:00 84 7 124/91 (102) 93 NIV Bilevel 25.00 06/30/19 13:00 86 24 175/93 (120) 91 NIV Bilevel 25.00 06/30/19 12:29 86 06/30/19 12:00 92 NIV Bilevel 28 06/30/19 12:00 35.7 06/30/19 12:00 81 16 173/92 (119) 92 NIV Bilevel 25.00 06/30/19 11:04 87 21 93 25.00 06/30/19 11:00 91 22 182/100 (127) 93 NIV Bilevel 25.00 06/30/19 10:00 90 26 163/93 (116) 95 NIV Bilevel 25.00 06/30/19 09:01 86 28 95 25.00 06/30/19 09:00 82 24 147/72 (97) 95 NIV Bilevel 25.00 06/30/19 08:00 92 NIV Bilevel 28 06/30/19 08:00 75 30 171/78 (109) 97 NIV Bilevel 25.00 06/30/19 07:52 36.3 I & O 07/01/19 07:00 Intake Total 75 ml Output Total 1750 ml Balance -1675 ml Capillary Refill : Less Than 3 Seconds General Appearance: No Apparent Distress, WD/WN HEENT: Normal ENT Inspection Neck: Full Range of Motion, Normal Inspection Respiratory: No Accessory Muscle Use, No Respiratory Distress, Decreased Breath Sounds, Other (Exchanging air better) Cardiovascular: Regular Rate, Rhythm, No Murmur Gastrointestinal: non tender, soft Results Lab Laboratory Tests 07/01/19 03:12 Laboratory Tests 06/30/19 11:28: Glucometer 234H 06/30/19 17:36: Glucometer 113H 06/30/19 22:55: Glucometer 221H 07/01/19 03:12: White Blood Count 4.6, Red Blood Count 2.84L, Hemoglobin 8.0L, Hematocrit 28L, Mean Corpuscular Volume 98, Mean Corpuscular Hemoglobin 28, Mean Corpuscular Hemoglobin Concent 29L, Red Cell Distribution Width 16.2H, Platelet Count 70L, Mean Platelet Volume 10.4, Neutrophils (%) (Auto) 93H, Lymphocytes (%) (Auto) 4L , Monocytes (%) (Auto) 3, Eosinophils (%) (Auto) 0, Basophils (%) (Auto) 0, Neutrophils # (Auto) 4.3, Lymphocytes # (Auto) 0.2L, Monocytes # (Auto) 0.1, Eosinophils # (Auto) 0.0, Basophils # (Auto) 0.0, Sodium Level 151H, Potassium Level 3.4L, Chloride Level 113H, Carbon Dioxide Level 24, Anion Gap 14, Blood Urea Nitrogen 43H, Creatinine 1.53H, Estimat Glomerular Filtration Rate 34, BUN/Creatinine Ratio 28, Glucose Level 125H, Calcium Level 8.1L, Phosphorus Level 4.0, Magnesium Level 2.0, Triglycerides Level 96 07/01/19 04:04: Blood Gas Puncture Site left radial, Blood Gas Patient Temperature 36.3, Arterial Blood pH 7.36L, Arterial Blood Partial Pressure CO2 50H, Arterial Blood Partial Pressure O2 58L, Arterial Blood HCO3 28H, Arterial Blood Total CO2 29.6, Arterial Blood Oxygen Saturation 90L, Arterial Blood Base Excess 2.8H, Clif Test POSITIVE, Blood Gas Ventilator Setting NO, Blood Gas Inspired Oxygen 25% Microbiology 06/28/19 MRSA Screen - Final, Complete 06/26/19 Blood Culture - Preliminary, Resulted No growth Assessment/Plan Assessment/Plan Assess & Plan/Chief Complaint Acute and chronic respiratory failure. COPD with acute exacerbation. Acute renal failure. Pneumonia or Thrombocytopenia. Hypertension. Hypoxia. . 07/01/2019. Electrolyte imbalance. Acute and chronic respiratory failure. Thrombocytopenia. COPD with acute exacerbation. Renal insufficiency. Pneumonia. Hypertension. Hypoxia. Clinical Quality Measures Admission Status Admission Dx COPD with acute exacerbation left lower lobe pneumonia renal insufficiency acute short of breath acute respiratory failure thrombocytopenia hypertension hyperlipidemia DVT/VTE Risk/Contraindication: Risk Factor Score Per Nursin RFS Level Per Nursing on Admit: 4+=Very High AURORA STACK DO Jul 01, 2019 07:33
--- NOTE | 2019-07-01 07:34 | Pulmonary Progress Note ---
Subjective Time Seen by a Provider: 06:54 Subjective/Events-last exam PT appears agitated. Sepsis Event Evaluation Height, Weight, BMI Height: 5'4.00" Weight: 246lbs. 2.0oz. 111.542073ay; 44.00 BMI Method:Stated Focused Exam Lactate Level 06/30/19 05:00: Lactic Acid Level 0.36L Exam Exam Vital Signs Date Time Temp Pulse Resp B/P (MAP) Pulse Ox O2 Delivery O2 Flow Rate FiO2 07/01/19 06:40 Vapotherm 40.00 25.00 07/01/19 06:39 Vapotherm 40.00 40.00 07/01/19 06:00 71 19 157/101 (119) 95 NIV Bilevel 25.00 07/01/19 05:00 71 33 168/90 (116) 91 NIV Bilevel 25.00 07/01/19 04:15 72 14 156/80 (105) 93 NIV Bilevel 25.00 07/01/19 04:00 92 NIV Bilevel 25 07/01/19 04:00 36.0 07/01/19 03:00 62 13 167/80 (109) 94 NIV Bilevel 25.00 07/01/19 02:00 64 13 168/82 (110) 94 NIV Bilevel 25.00 07/01/19 01:22 72 25 94 25.00 07/01/19 01:00 67 14 164/74 (104) 94 NIV Bilevel 25.00 07/01/19 00:37 64 07/01/19 00:00 92 NIV Bilevel 25 07/01/19 00:00 77 17 158/75 (102) 95 NIV Bilevel 25.00 07/01/19 00:00 36.3 06/30/19 23:00 75 20 161/73 (102) 94 NIV Bilevel 25.00 06/30/19 22:20 73 17 92 25.00 06/30/19 22:00 77 19 155/75 (101) 94 NIV Bilevel 25.00 06/30/19 21:00 76 19 159/83 (108) 92 NIV Bilevel 25.00 06/30/19 20:00 85 24 174/92 (119) 93 NIV Bilevel 25.00 06/30/19 20:00 35.9 06/30/19 20:00 92 NIV Bilevel 25 06/30/19 19:00 77 22 180/88 (118) 95 NIV Bilevel 25.00 06/30/19 18:43 88 06/30/19 18:40 82 29 93 25.00 06/30/19 18:00 77 20 183/89 (120) 93 NIV Bilevel 25.00 06/30/19 17:00 83 23 190/97 (128) 91 NIV Bilevel 25.00 06/30/19 16:00 85 24 180/84 (116) 93 NIV Bilevel 25.00 06/30/19 16:00 92 NIV Bilevel 28 06/30/19 15:09 79 21 98 25.00 06/30/19 15:00 81 131/100 (110) 97 NIV Bilevel 25.00 06/30/19 14:00 84 7 124/91 (102) 93 NIV Bilevel 25.00 06/30/19 13:00 86 24 175/93 (120) 91 NIV Bilevel 25.00 06/30/19 12:29 86 06/30/19 12:00 92 NIV Bilevel 28 06/30/19 12:00 35.7 06/30/19 12:00 81 16 173/92 (119) 92 NIV Bilevel 25.00 06/30/19 11:04 87 21 93 25.00 06/30/19 11:00 91 22 182/100 (127) 93 NIV Bilevel 25.00 06/30/19 10:00 90 26 163/93 (116) 95 NIV Bilevel 25.00 06/30/19 09:01 86 28 95 25.00 06/30/19 09:00 82 24 147/72 (97) 95 NIV Bilevel 25.00 06/30/19 08:00 92 NIV Bilevel 28 06/30/19 08:00 75 30 171/78 (109) 97 NIV Bilevel 25.00 06/30/19 07:52 36.3 I & O 07/01/19 07:00 Intake Total 75 ml Output Total 1750 ml Balance -1675 ml Height & Weight Height: 5'4.00" Weight: 246lbs. 2.0oz. 111.935157hr; 44.00 BMI Method:Stated General Appearance: Anxious, Chronically ill, Mild Distress, Obese HEENT: PERRL/EOMI, Normal ENT Inspection, Pharynx Normal Neck: Normal Inspection Respiratory: Lungs Clear, No Respiratory Distress Cardiovascular: Regular Rate, Rhythm, No Murmur Capillary Refill: Less Than 3 Seconds Gastrointestinal: normal bowel sounds, non tender, soft Extremity: Swelling, Other (stasis dermatitis on bilateral lower extremities) Neurologic/Psychiatric: Alert Skin: Normal Color, Warm/Dry Lymphatic: No Adenopathy Results Lab Laboratory Tests 06/30/19 03:40 07/01/19 03:12 Assessment/Plan Assessment/Plan Acute on chronic respiratory failure -Trial pt to Vapotherm currently on BiPAP COPDAE -Solumedrol 40 IV Q 6 -Duoneb Q 4 Acute renal failure - monitor Hypernatremia -Change to 1/2 NS PNA -Continue Rocpehin, and Azithromycin Hx of Diastolic CHF grade II - -Monitor Anemia -Check occult stool Thrombocytopenia -Monitor HTN -Add hydralazine PRN ESTRELLITA PITT DO Jul 01, 2019 07:34
[2019-07-01] MEDS: RT-BUDESONIDE NEBS 0.5 MG/2ML (PULMICORT) AMP INH SCH (07:50)
--- NOTE | 2019-07-01 07:56 | Diagnostic Imaging Report ---
CHEST 1 VIEW, AP/PA ONLY Indication: Dyspnea Comparison: 06/30/2019 Findings: Stable right PICC. Stable cardiomegaly. Patchy basilar pulmonary opacities are unchanged. No pneumothorax or pleural effusion. Impression: 1. Stable right PICC. 2. No adverse development or improvement in the interim. Dictated by: Dictated on workstation # [id number]
[2019-07-01] MEDS: PANTOPRAZOLE 40 MG (PROTONIX) VIAL IV SCH (08:55)
--- NOTE | 2019-07-01 10:04 | Physical Therapy Daily Note ---
PT Daily Note-Current Subjective Patient agrees to PT. Currently on Vapotherm 40% 35L Mental Status Patient Orientation: Normal For Age Attachments: Oxygen, Hines Catheter, IV Transfers SCALE: Activities may be completed with or without assistive devices. 0-Ugodzxlvjt-xoswcfm completes the activity by him/herself with no assistance from a helper. 5-Set-up or Clean-up Assistance-helper sets up or cleans up; patient completes activity. [place] assists only prior to or following the activity. 4-Supervision or Touching Assistance-helper provides verbal cues and/or touching/steadying and/or contact guard assistance as patient completes activity. Assistance may be provided throughout the activity or intermittently. 3-Partial/Moderate Assistance-helper does LESS THAN HALF the effort. [place] lifts, holds or supports trunk or limbs, but provides less than half the effort. 2-Substantial/Maximal Assistance-helper does MORE THAN HALF the effort. [place] lifts or holds trunk or limbs and provides more than half the effort. 8-Lgomabsnr-yflcol does ALL the effort. Patient does none of the effort to complete the activity. Or, the assistance of 2 or more helpers is required for the patient to complete the activity. If activity was not attempted, code reason: 7-Patient Refused. 9-Not Applicable-not attempted and the patient did not perform the activity before the current illness, exacerbation or injury. 10-Not Attempted due to Environmental Limitations-(lack of equipment, weather restraints, etc.). 88-Not Attempted due to Medical Conditions or Safety Concerns. Roll Left & Right (QC): 1 Sit to Lying (QC): 1 Lying to Sitting/Side of Bed(Q: 1 patient sat EOB x 8 min CGA for safety with SAO2 maintaining >93% on vapotherm Weight Bearing Right Lower Extremity: Right Weight Bearing/Tolerated Left Lower Extremity: Left Weight Bearing/Tolerated Exercises Seated Therapy Exercises: Ankle pumps, Long arc quads Seated Reps: 15 Assessment Patient tolerates minimal activity and requests to return to supine in bed dependent assist x 2 with all. PT educated patient on importance of actively exercising bilateral LE independently to increase strength and mobility. PT Circulation Crew Leader Goals Circulation Crew Leader Goals PT Group Home Goals Time Frame: Jul 12, 2019 Roll Left & Right (QC): 2 Sit to Lying (QC): 2 Lying-Sitting on Side/Bed(QC): 2 Chair/Nev-qo-Povxt Xfer(QC): 1 PT Plan Treatment/Plan Treatment Plan: Continue Plan of Care Treatment Plan: Bed Mobility, Education, Functional Activity Jose J, Functional Strength, Safety, Therapeutic Exercise, Transfers Treatment Duration: Jul 12, 2019 Frequency: 5 times per week Estimated Hrs Per Day: .25 hour per day Patient and/or Family Agrees t: Yes Time/GCodes Time In: 835 Time Out: 854 Total Billed Treatment Time: 19 Total Billed Treatment 1 visit FA 19 min MIGDALIA OSORIO PT Jul 01, 2019 10:04
--- NOTE | 2019-07-01 11:45 | Occupational Ther Daily Note ---
OT Current Status-Daily Note Subjective Pt. does not report pain, but does report feeling SOA. Pt. on vapotherm. Appearance Pt. in bed. Off bipap but on vapotherm now. Agrees to work with OT. Mental Status/Objective Patient Orientation: Person, Place ADL-Treatment Therapy Code Descriptions/Definitions Functional [place] Measure: 0=Not Assessed/NA 4=Minimal Assistance 1=Total Assistance 5=Supervision or Setup 2=Maximal Assistance 6=Modified [place] 3=Moderate Assistance 7=Complete IndependenceSCALE: Activities may be completed with or without assistive devices. 7-Ssaapsjbvt-ycyedtl completes the activity by him/herself with no assistance from a helper. 5-Set-up or Clean-up Assistance-helper sets up or cleans up; patient completes activity. [place] assists only prior to or following the activity. 4-Supervision or Touching Assistance-helper provides verbal cues and/or touching/steadying and/or contact guard assistance as patient completes activity. Assistance may be provided throughout the activity or intermittently. 3-Partial/Moderate Assistance-helper does LESS THAN HALF the effort. [place] lifts, holds or supports trunk or limbs, but provides less than half the effort. 2-Substantial/Maximal Assistance-helper does MORE THAN HALF the effort. [place] lifts or holds trunk or limbs and provides more than half the effort. 0-Dibhqlqhi-fmjosv does ALL the effort. Patient does none of the effort to complete the activity. Or, the assistance of 2 or more helpers is required for the patient to complete the activity. If activity was not attempted, code reason: 7-Patient Refused. 9-Not Applicable-not attempted and the patient did not perform the activity before the current illness, exacerbation or injury. 10-Not Attempted due to Environmental Limitations-(lack of equipment, weather restraints, etc.). 88-Not Attempted due to Medical Conditions or Safety Concerns. Oral Hygiene (QC): 7 (Pt. declines brushing teeth. States that she is completing oral care with mouth swab.) OT washed pt's hair at bed level with shampoo cap. OT dried hair, and pt. able to comb it at bed level. OT gave pt. warm washcloth and pt. able to wash face. OT issued yellow hand therapy sponge as well as yellow theraband. Pt. able to complete hand squeezes x 10 reps each. Then tolerated 5 theraband exercise reps in horizontal abduction. This movement makes pt. de-sat from 95% to 87%. Pt. recovers quickly, but needs more rest breaks. Completed shoulder flexion exercises x 10 reps, and another rest break. Pt. reports again that she has radio time buyer assistance with all ADLs at [facility]. All needs met. Education OT Patient Education: Correct positioning, Exercise program, Modified ADL techniques, Progress toward Goal/Update tx plan, Purpose of tx/functional activities, Reviewed precautions, Rehab process, Transfer techniques Teaching Recipient: Patient Teaching Methods: Demonstration, Discussion Response to Teaching: Verbalize Understanding, Return Demonstration OT Short Term Goals Short Term Goals Time Frame: Jul 14, 2019 Eatin (When cleared.) Oral hygiene: 3 OT Fpc Goals Fpc Goals Time Frame: Jul 21, 2019 Eating (QC): 4 Oral Hygiene (QC): 4 Toileting Hygiene (QC): 4 Upper Body Dressing (QC): 4 Additional Goals: 1-Demonstrate ADL Tasks, 2-Verbalize Understanding, 3- ImproveStrength/Jose J 1=Demonstrate adherence to instructed precautions during ADL tasks. 2=Patient will verbalize/demonstrate understanding of assistive devices/modifications for ADL. 3=Patient will improve strength/tolerance for activity to enable patient to perform ADL's. OT Education/Plan Problem List/Assessment Assessment: Decreased Activ Tolerance, Decreased UE Strength, Dependent Transfers, Impaired Bed Mobility, Impaired Funct Balance, Impaired I ADL's, Impaired Self-Care Skills, Restricted Funct UE ROM Discharge Recommendations Plan/Recommendations: Continue POC Therapy Discharge Recommendati: 24 Hour Supervision, Post Acute OT Treatment Plan/Plan of Care Treatment,Training & Education: Yes Patient would benefit from OT for education, treatment and training to promote independence in ADL's, mobility, safety and/or upper extremity function for ADL's. Plan of Care: ADL Retraining, Functional Mobility, UE Funct Exercise/Act Treatment Duration: Jul 21, 2019 Frequency: 5 times per week Estimated Hrs Per Day: .25 hour per day Agreement: Yes Rehab Potential: Fair Time/GCodes Start Time: 10:20 Stop Time: 10:40 Total Time Billed (hr/min): 20 Billed Treatment Time 1, ADL ADDISON NEWTON OT Jul 01, 2019 11:45
[2019-07-01] MEDS ORDERED: HALOPERIDOL 5 MG/ML (HALDOL) AMP IV PRN (12:15)
[2019-07-01] MEDS: hydrALAZINE (APESOLINE) 20 MG/ML VIAL IV PRN (12:54)
--- NOTE | 2019-07-01 13:55 | NUR ---
THIS NURSE NOTIFIED DR STACK PT SBP HAS BEEN 150-170S. NURSE GAVE HYDRALAZINE AND IT DID NOT HELP BP. ORDERS GIVEN TO START HOME DOSE OF METOPROLOL.
--- NOTE | 2019-07-01 16:07 | NUR ---
Follow up: pt said she "bottomed out today" and described feeling depressed. She said she does not know why she starts feeling this way. When asked what helps her, she responded that she thinks about what will happen if she gives up, and she rallies her thoughts and energies. I asked what would happen if she gave up and she said ". I still have allot of fight in me." She said she was hoping her friend of 40 plus years could visit her this afternoon and she became discouraged when she did not show. Pt shared her love for animals and particularly her cats. She expressed appreciation for our visits stating she does not get many visitors and she becomes lonely. She requested prayer and said she has recently been saying prayers at night. She describes herself as believing in multiple religions and needing the strength of the gods.
[2019-07-01] MEDS ORDERED: ALPRAZolam 0.5 MG (XANAX) TAB PO PRN (17:15)
[2019-07-01] MEDS: cefTRIAXone 1,000 MG/SWFI 10 ML IV PUSH IV SCH ×2 (17:39)
[2019-07-01] MEDS: AZITHROMYCIN 500 MG/NS 250 ML IVPB IV SCH ×2 (20:22)
[2019-07-01] MEDS: meTOprolol TARTRATE 25 MG (LOPRESSOR) TABLET PO SCH (20:22)
[2019-07-02] VITALS (27 sets, daily range): BP systolic 118–184; BP diastolic 55–89
[2019-07-02] MEDS: 1/2 NS W/KCL 20 MEQ/L 1,000 ML IV SCH ×2 (01:17→03:20)
--- NOTE | 2019-07-02 01:23 | NUR ---
E-ICU CONTACTED DUE TO PT ASKING FOR MEDICATION TO HELP HER SLEEP. ORDERS FOR BENADRYL AND MELATONIN RECEIVED
[2019-07-02] MEDS ORDERED: MELATONIN 3 MG TABLET PO ONE (01:45)
[2019-07-02] MEDS ORDERED: diphenhydrAMINE 25 MG TAB (BENADRYL) PO ONE (01:45)
[2019-07-02] MEDS: RT-BUDESONIDE NEBS 0.5 MG/2ML (PULMICORT) AMP INH SCH ×3 (01:50→18:01)
[2019-07-02] MEDS: RT-ALBUTEROL/IPRATROPIUM 3 ML (DUONEB) VIAL INH SCH ×6 (01:50→21:29)
[2019-07-02] MEDS: aCETylcysteine 20% (MUCOMYST) 30ML SOLN VIAL INH SCH ×6 (01:51→21:29)
[2019-07-02 03:15] LABS: BASOPHILS % (AUTO) 0 % (0-10); EOSINOPHILS % (AUTO) 0 % (0-10); HEMATOCRIT 30 % (35-52); HEMOGLOBIN 8.3 G/DL (11.5-16.0); LYMPHOCYTES # (AUTO) 0.2 X 10^3 (1.0-4.0); LYMPHOCYTES % (AUTO) 3 % (12-44); MEAN CORPUSCULAR HEMOGLOBIN 28 PG (25-34); MEAN CORPUSCULAR HGB CONC 28 G/DL (32-36); MEAN CORPUSCULAR VOLUME 101 FL (80-99); MEAN PLATELET VOLUME 10.2 FL (7.4-10.4); MONOCYTES # (AUTO) 0.2 X 10^3 (0.0-1.0); MONOCYTES % (AUTO) 2 % (0-12); NEUTROPHILS # (AUTO) 7.4 X 10^3 (1.8-7.8); NEUTROPHILS % (AUTO) 96 % (42-75); PLATELET COUNT 118 10^3/uL (130-400); RED CELL DISTRIBUTION WIDTH 16.9 % (10.0-14.5); WHITE BLOOD COUNT 7.7 10^3/uL (4.3-11.0)
[2019-07-02 03:16] LABS: ABG BASE EXCESS 2.1 MMOL/L (-2.5-2.5); ABG OXYGEN SATURATION 96 % (94-100); ABG PCO2 61 MMHG (35-45); ABG PO2 73 MMHG (79-93); ABG TCO2 30.3 MMOL/L (21.0-31.0)
[2019-07-02 03:17] LABS: ABG PH 7.28 (7.37-7.43); ALLENS TEST POSITIVE; INSPIRED O2 30% BIPAP; PATIENT TEMP 36.2; VENTILATOR NO
[2019-07-02 03:30] LABS: CALCIUM 7.9 MG/DL (8.5-10.1); CREATININE SERUM 1.42 MG/DL (0.60-1.30); PHOSPHORUS 4.2 MG/DL (2.3-4.7); POTASSIUM 5.3 MMOL/L (3.6-5.0)
[2019-07-02] MEDS: POTASSIUM CL 10MEQ/50ML IVPB 50 ML IV SCH (03:53)
[2019-07-02] MEDS: MAGNESIUM 1 GM/100 ML IVPB 100 ML IV SCH (03:53)
[2019-07-02] MEDS: KCL 20 MEQ TAB (K-DUR) PO SCH (03:54)
--- NOTE | 2019-07-02 04:38 | Pulmonary Progress Note ---
Subjective Time Seen by a Provider: 07:42 Subjective/Events-last exam Currently on BiPAP Sepsis Event Evaluation Height, Weight, BMI Height: 5'4.00" Weight: 246lbs. 2.0oz. 111.245775nc; 44.00 BMI Method:Stated Focused Exam Lactate Level 06/30/19 05:00: Lactic Acid Level 0.36L Exam Exam Vital Signs Date Time Temp Pulse Resp B/P (MAP) Pulse Ox O2 Delivery O2 Flow Rate FiO2 07/02/19 03:28 95 NIV Bilevel 30 07/02/19 03:28 36.2 07/02/19 03:00 74 22 145/72 (96) 98 NIV Bilevel 30.00 07/02/19 02:00 84 28 153/71 (98) 96 NIV Bilevel 30.00 07/02/19 01:51 82 27 95 30.00 07/02/19 01:00 84 07/02/19 01:00 80 29 170/89 (116) 97 NIV Bilevel 30.00 07/02/19 00:00 84 27 156/75 (102) 97 NIV Bilevel 30.00 07/01/19 23:38 95 NIV Bilevel 30 07/01/19 23:38 36.2 07/01/19 23:00 81 29 157/83 (107) 97 NIV Bilevel 30.00 07/01/19 22:00 77 22 139/71 (93) 96 NIV Bilevel 30.00 07/01/19 21:53 NIV Bilevel 30.00 07/01/19 21:32 92 Vapotherm 30.00 45 07/01/19 21:07 Vapotherm 30.00 45.00 07/01/19 21:00 86 24 139/70 (93) 91 Vapotherm 30.00 35.00 07/01/19 20:28 Vapotherm 30.00 35.00 07/01/19 20:00 36.3 07/01/19 20:00 97 27 161/74 (103) 94 NIV Bilevel 25.00 07/01/19 20:00 93 Vapotherm 35 07/01/19 19:00 112 07/01/19 19:00 114 31 161/78 (105) 94 NIV Bilevel 25.00 07/01/19 18:48 103 29 95 30.00 07/01/19 18:00 110 39 154/76 (102) 96 NIV Bilevel 25.00 07/01/19 17:00 113 188/92 (124) 93 NIV Bilevel 25.00 07/01/19 16:00 105 32 171/87 (115) 93 NIV Bilevel 25.00 07/01/19 16:00 93 Vapotherm 35 07/01/19 15:00 97 24 162/89 (113) 98 NIV Bilevel 25.00 07/01/19 14:08 99 31 171/48 (89) 93 NIV Bilevel 25.00 07/01/19 14:08 121 32 94 30.00 07/01/19 13:50 NIV Bilevel 25.00 07/01/19 13:00 99 31 162/99 (120) 93 Vapotherm 40.00 25.00 07/01/19 12:55 85 07/01/19 12:00 89 26 172/105 (127) 97 Vapotherm 40.00 25.00 07/01/19 12:00 93 Vapotherm 35 07/01/19 11:21 95 Vapotherm 30.00 35 07/01/19 11:00 92 25 160/86 (110) 98 Vapotherm 40.00 25.00 07/01/19 10:00 89 22 173/98 (123) 96 Vapotherm 40.00 25.00 07/01/19 09:00 84 19 173/99 (123) 96 Vapotherm 40.00 25.00 07/01/19 08:00 72 18 165/89 (114) 96 Vapotherm 40.00 25.00 07/01/19 08:00 91 Vapotherm 35 07/01/19 07:48 92 Vapotherm 40.00 35 07/01/19 07:38 36.3 07/01/19 07:00 73 07/01/19 07:00 71 17 170/95 (120) 91 Vapotherm 40.00 25.00 07/01/19 06:40 Vapotherm 40.00 25.00 07/01/19 06:39 Vapotherm 40.00 40.00 07/01/19 06:00 71 19 157/101 (119) 95 NIV Bilevel 25.00 07/01/19 05:00 71 33 168/90 (116) 91 NIV Bilevel 25.00 I & O 07/02/19 07:00 Intake Total 1000 ml Output Total 1325 ml Balance -325 ml Height & Weight Height: 5'4.00" Weight: 246lbs. 2.0oz. 111.632340fm; 44.00 BMI Method:Stated General Appearance: Anxious, Chronically ill, Mild Distress, Obese HEENT: PERRL/EOMI, Normal ENT Inspection, Pharynx Normal Neck: Normal Inspection Respiratory: No Respiratory Distress, Decreased Breath Sounds, Rhonci Cardiovascular: Regular Rate, Rhythm, No Murmur Capillary Refill: Less Than 3 Seconds Gastrointestinal: normal bowel sounds, non tender, soft Extremity: Swelling, Other (stasis dermatitis on bilateral lower extremities) Neurologic/Psychiatric: Alert Skin: Normal Color, Warm/Dry Lymphatic: No Adenopathy Results Lab Laboratory Tests 07/01/19 03:12 07/02/19 02:59 Assessment/Plan Assessment/Plan Acute on chronic respiratory failure -Trial pt to Vapotherm currently on BiPAP COPDAE -Solumedrol 40 IV Q 6 -Duoneb Q 4 Acute renal failure - monitor Hypernatremia -Monitor -D5W PNA -Continue Rocpehin, and Azithromycin Hx of Diastolic CHF grade II - -Monitor Anemia -Check occult stool Thrombocytopenia -Monitor HTN -Add hydralazine PRN ESTRELLITA PITT DO Jul 02, 2019 04:38
[2019-07-02] MEDS ORDERED: BUMETANIDE 1 MG/4 ML (BUMEX) VIAL IV ONE (04:45)
[2019-07-02] MEDS: inSUlin ASPART (NovoLOG) 1 UNIT/0.01 ML (CHARGE PER UNIT) SC SCH ×4 (04:58→23:47)
[2019-07-02] MEDS ORDERED: D5W 1000 ML IV SOLUTION 1,000 ML ONE (04:59)
[2019-07-02] MEDS ORDERED: BUMETANIDE 1 MG/4 ML (BUMEX) VIAL ONE (04:59)
[2019-07-02] MEDS: LEVOTHYROXINE 150 MCG (LEVOTHROID) TAB PO SCH (05:08)
[2019-07-02] MEDS: BUMETANIDE 1 MG/4 ML (BUMEX) VIAL IV SCH ×2 (05:08→19:58)
[2019-07-02] MEDS: D5W 1000 ML IV SOLUTION 1,000 ML IV SCH (05:08)
[2019-07-02] MEDS: methylPREDNISolone 40 MG/ML (Solu-MEDROL) VIAL IV SCH ×4 (05:08→23:47)
[2019-07-02] MEDS: LEVOTHYROXINE 25 MCG (LEVOTHROID) TAB PO SCH (05:08)
--- NOTE | 2019-07-02 07:50 | NUR ---
THIS NURSE NOTIFIED DR STACK PT SBP HAS BEEN 160-170. PT IS VERY ANXIOUS. ORDERS GIVEN. WRITTEN DOWN AND REPEATED BACK.
--- NOTE | 2019-07-02 07:53 | Progress Note ---
Subjective Time Seen by a Provider: 07:51 Subjective/Events-last exam Patient anxious this a.m. Patient had a bad night. Patient back on BiPAP. Platelet count increased to 118. Patient hypertensive put on Norvasc Focused Exam Lactate Level 06/30/19 05:00: Lactic Acid Level 0.36L Objective Exam Vital Signs Date Time Temp Pulse Resp B/P (MAP) Pulse Ox O2 Delivery O2 Flow Rate FiO2 07/02/19 07:18 NIV Bilevel 25.00 07/02/19 06:00 81 22 161/72 (101) 92 NIV Bilevel 21.00 07/02/19 05:00 81 31 163/76 (105) 92 NIV Bilevel 21.00 07/02/19 04:42 NIV Bilevel 21.00 07/02/19 04:00 77 18 151/75 (100) 97 NIV Bilevel 30.00 07/02/19 03:28 95 NIV Bilevel 30 07/02/19 03:28 36.2 07/02/19 03:00 74 22 145/72 (96) 98 NIV Bilevel 30.00 07/02/19 02:00 84 28 153/71 (98) 96 NIV Bilevel 30.00 07/02/19 01:51 82 27 95 30.00 07/02/19 01:00 84 07/02/19 01:00 80 29 170/89 (116) 97 NIV Bilevel 30.00 07/02/19 00:00 84 27 156/75 (102) 97 NIV Bilevel 30.00 07/01/19 23:38 95 NIV Bilevel 30 07/01/19 23:38 36.2 07/01/19 23:00 81 29 157/83 (107) 97 NIV Bilevel 30.00 07/01/19 22:00 77 22 139/71 (93) 96 NIV Bilevel 30.00 07/01/19 21:53 NIV Bilevel 30.00 07/01/19 21:32 92 Vapotherm 30.00 45 07/01/19 21:07 Vapotherm 30.00 45.00 07/01/19 21:00 86 24 139/70 (93) 91 Vapotherm 30.00 35.00 07/01/19 20:28 Vapotherm 30.00 35.00 07/01/19 20:00 36.3 07/01/19 20:00 97 27 161/74 (103) 94 NIV Bilevel 25.00 07/01/19 20:00 93 Vapotherm 35 07/01/19 19:00 112 07/01/19 19:00 114 31 161/78 (105) 94 NIV Bilevel 25.00 07/01/19 18:48 103 29 95 30.00 07/01/19 18:00 110 39 154/76 (102) 96 NIV Bilevel 25.00 07/01/19 17:00 113 188/92 (124) 93 NIV Bilevel 25.00 07/01/19 16:00 105 32 171/87 (115) 93 NIV Bilevel 25.00 07/01/19 16:00 93 Vapotherm 35 07/01/19 15:00 97 24 162/89 (113) 98 NIV Bilevel 25.00 07/01/19 14:08 99 31 171/48 (89) 93 NIV Bilevel 25.00 07/01/19 14:08 121 32 94 30.00 07/01/19 13:50 NIV Bilevel 25.00 07/01/19 13:00 99 31 162/99 (120) 93 Vapotherm 40.00 25.00 07/01/19 12:55 85 07/01/19 12:00 89 26 172/105 (127) 97 Vapotherm 40.00 25.00 07/01/19 12:00 93 Vapotherm 35 07/01/19 11:21 95 Vapotherm 30.00 35 07/01/19 11:00 92 25 160/86 (110) 98 Vapotherm 40.00 25.00 07/01/19 10:00 89 22 173/98 (123) 96 Vapotherm 40.00 25.00 07/01/19 09:00 84 19 173/99 (123) 96 Vapotherm 40.00 25.00 07/01/19 08:00 72 18 165/89 (114) 96 Vapotherm 40.00 25.00 07/01/19 08:00 91 Vapotherm 35 I & O 07/02/19 07:00 Intake Total 1000 ml Output Total 1475 ml Balance -475 ml Capillary Refill : Less Than 3 Seconds General Appearance: No Apparent Distress, WD/WN HEENT: Normal ENT Inspection Neck: Full Range of Motion, Normal Inspection Respiratory: No Accessory Muscle Use, No Respiratory Distress, Decreased Breath Sounds Cardiovascular: Regular Rate, Rhythm, No Murmur Gastrointestinal: non tender, soft Results Lab Laboratory Tests 07/02/19 02:59 Laboratory Tests 07/01/19 11:11: Glucometer 159H 07/01/19 17:30: Glucometer 130H 07/01/19 20:06: Glucometer 137H 07/01/19 23:07: Glucometer 205H 07/02/19 02:59: White Blood Count 7.7, Red Blood Count 2.99L, Hemoglobin 8.3L, Hematocrit 30L, Mean Corpuscular Volume 101H, Mean Corpuscular Hemoglobin 28, Mean Corpuscular Hemoglobin Concent 28L, Red Cell Distribution Width 16.9H, Platelet Count 118L, Mean Platelet Volume 10.2, Neutrophils (%) (Auto) 96H, Lymphocytes (%) (Auto) 3L , Monocytes (%) (Auto) 2, Eosinophils (%) (Auto) 0, Basophils (%) (Auto) 0, Neutrophils # (Auto) 7.4, Lymphocytes # (Auto) 0.2L, Monocytes # (Auto) 0.2, Eosinophils # (Auto) 0.0, Basophils # (Auto) 0.0, Sodium Level 146H, Potassium Level 5.3H, Chloride Level 112H, Carbon Dioxide Level 23, Anion Gap 11, Blood Urea Nitrogen 45H, Creatinine 1.42H, Estimat Glomerular Filtration Rate 37, BUN/Creatinine Ratio 32, Glucose Level 96, Calcium Level 7.9L, Phosphorus Level 4.2, Magnesium Level 2.0 07/02/19 03:08: Blood Gas Puncture Site LEFT RADIAL, Blood Gas Patient Temperature 36.2, Arterial Blood pH 7.28*L, Arterial Blood Partial Pressure CO2 61H, Arterial Blood Partial Pressure O2 73L, Arterial Blood HCO3 28H, Arterial Blood Total CO2 30.3, Arterial Blood Oxygen Saturation 96, Arterial Blood Base Excess 2.1, Clif Test POSITIVE, Blood Gas Ventilator Setting NO, Blood Gas Inspired Oxygen 30% BIPAP Microbiology 06/28/19 MRSA Screen - Final, Complete 06/26/19 Blood Culture - Preliminary, Resulted No growth Assessment/Plan Assessment/Plan Assess & Plan/Chief Complaint Acute and chronic respiratory failure. COPD with acute exacerbation. Acute renal failure. Pneumonia or Thrombocytopenia. Hypertension. Hypoxia. . 07/01/2019. Electrolyte imbalance. Acute and chronic respiratory failure. Thrombocytopenia. COPD with acute exacerbation. Renal insufficiency. Pneumonia. Hypertension. Hypoxia.. . 07/02/2019. Maryam chronic respiratory failure. Thrombocytopenia better COPD with acute exacerbation. Renal insufficiency. Pneumonia. Hypertension. Hypoxia Clinical Quality Measures Admission Status Admission Dx COPD with acute exacerbation left lower lobe pneumonia renal insufficiency acute short of breath acute respiratory failure thrombocytopenia hypertension hyperlipidemia DVT/VTE Risk/Contraindication: Risk Factor Score Per Nursin RFS Level Per Nursing on Admit: 4+=Very High AURORA STACK DO Jul 02, 2019 07:53
--- NOTE | 2019-07-02 08:59 | Physical Therapy Daily Note ---
PT Daily Note-Current Subjective Patient in bed pre tx, has bipap on now, RT states she can put patient on vapotherm so patient can sit at the edge of the bed but patient refuses to do that but does agree to exercises in bed. Patient voices no complaints of pain. Appearance Patient in bed post tx with nurse call, phone tray, all needs met. Mental Status Patient Orientation: Person, Place, Situation Attachments: Hines Catheter, IV Transfers SCALE: Activities may be completed with or without assistive devices. 6-Jmpcbsiiuc-cluxvlv completes the activity by him/herself with no assistance from a helper. 5-Set-up or Clean-up Assistance-helper sets up or cleans up; patient completes activity. [place] assists only prior to or following the activity. 4-Supervision or Touching Assistance-helper provides verbal cues and/or touching/steadying and/or contact guard assistance as patient completes activity. Assistance may be provided throughout the activity or intermittently. 3-Partial/Moderate Assistance-helper does LESS THAN HALF the effort. [place] lifts, holds or supports trunk or limbs, but provides less than half the effort. 2-Substantial/Maximal Assistance-helper does MORE THAN HALF the effort. [place] lifts or holds trunk or limbs and provides more than half the effort. 0-Pyhwtnkgr-qwarsh does ALL the effort. Patient does none of the effort to complete the activity. Or, the assistance of 2 or more helpers is required for the patient to complete the activity. If activity was not attempted, code reason: 7-Patient Refused. 9-Not Applicable-not attempted and the patient did not perform the activity before the current illness, exacerbation or injury. 10-Not Attempted due to Environmental Limitations-(lack of equipment, weather restraints, etc.). 88-Not Attempted due to Medical Conditions or Safety Concerns. Weight Bearing Right Lower Extremity: Right Weight Bearing/Tolerated Left Lower Extremity: Left Weight Bearing/Tolerated Exercises Supine Ex: Ankle pumps (30), Quad Set, Heel Slides Supine Reps: 15 Treatments LE exercise, helped place bedpan under patient with assist from nurse, patient had to roll to right side with max assist Assessment Current Status: Poor Progress Poor motivation, patient refuses to perform most of the LE exercises PT Skilled Nursing Goals Skilled Nursing Goals PT [employer] Technician Goals Time Frame: Jul 12, 2019 Roll Left & Right (QC): 2 Sit to Lying (QC): 2 Lying-Sitting on Side/Bed(QC): 2 Chair/Wsw-dz-Goqza Xfer(QC): 1 PT Plan Problem List Problem List: Activity Tolerance, Functional Strength, Safety, Balance, Gait, Transfer, Bed Mobility, ROM Treatment/Plan Treatment Plan: Continue Plan of Care Treatment Plan: Bed Mobility, Education, Functional Activity Jose J, Functional Strength, Safety, Therapeutic Exercise, Transfers Treatment Duration: Jul 12, 2019 Frequency: 5 times per week Estimated Hrs Per Day: .25 hour per day Patient and/or Family Agrees t: Yes Safety Risks/Education Patient Education: Correct Positioning, Safety Issues Teaching Recipient: Patient Teaching Methods: Demonstration, Discussion Response to Teaching: Reinforcement Needed Time/GCodes Time In: 0852 Time Out: 901 Total Billed Treatment Time: 10 Total Billed Treatment 1 visit FA TESS DOUGLAS PT Jul 02, 2019 08:59
[2019-07-02] MEDS: HALOPERIDOL 5 MG/ML (HALDOL) AMP IV SCH ×2 (09:02→19:58)
[2019-07-02] MEDS: PANTOPRAZOLE 40 MG (PROTONIX) VIAL IV SCH (09:02)
[2019-07-02] MEDS: meTOprolol TARTRATE 25 MG (LOPRESSOR) TABLET PO SCH ×2 (09:02→19:58)
[2019-07-02] MEDS: amLODIPine 5 MG (NORVASC) TAB PO SCH (09:02)
--- NOTE | 2019-07-02 09:02 | Diagnostic Imaging Report ---
INDICATION: Pneumonia COPD Frontal chest obtained at 4:06 a.m. is compared to previous day. There is cardiomegaly. There is mild central vascular prominence. There is no consolidation or pneumothorax or pleural fluid. PICC line is unchanged. IMPRESSION: Unchanged cardiomegaly and mild central vascular prominence. No alan consolidation, pneumothorax or pleural fluid. Dictated by: Dictated on workstation # [id number]
[2019-07-02] MEDS ORDERED: ALPRAZolam 0.5 MG (XANAX) TAB PO PRN (09:15)
--- NOTE | 2019-07-02 13:55 | Occupational Ther Daily Note ---
OT Current Status-Daily Note Subjective Pt. adamant that she does not want her heels floated. Appearance Pt. in bed. On bipap. Nursing okay for pt. to be seen if she can tolerate it. Mental Status/Objective Patient Orientation: Person Attachments: Hines Catheter, IV, Oxygen, Telemetry ADL-Treatment Therapy Code Descriptions/Definitions Functional [place] Measure: 0=Not Assessed/NA 4=Minimal Assistance 1=Total Assistance 5=Supervision or Setup 2=Maximal Assistance 6=Modified [place] 3=Moderate Assistance 7=Complete IndependenceSCALE: Activities may be completed with or without assistive devices. 3-Akwvrgnyfr-podggbx completes the activity by him/herself with no assistance from a helper. 5-Set-up or Clean-up Assistance-helper sets up or cleans up; patient completes activity. [place] assists only prior to or following the activity. 4-Supervision or Touching Assistance-helper provides verbal cues and/or touching/steadying and/or contact guard assistance as patient completes activity. Assistance may be provided throughout the activity or intermittently. 3-Partial/Moderate Assistance-helper does LESS THAN HALF the effort. [place] lifts, holds or supports trunk or limbs, but provides less than half the effort. 2-Substantial/Maximal Assistance-helper does MORE THAN HALF the effort. [place] lifts or holds trunk or limbs and provides more than half the effort. 7-Hrurmmbrj-ktlfyr does ALL the effort. Patient does none of the effort to complete the activity. Or, the assistance of 2 or more helpers is required for the patient to complete the activity. If activity was not attempted, code reason: 7-Patient Refused. 9-Not Applicable-not attempted and the patient did not perform the activity before the current illness, exacerbation or injury. 10-Not Attempted due to Environmental Limitations-(lack of equipment, weather restraints, etc.). 88-Not Attempted due to Medical Conditions or Safety Concerns. Pt. on bipap due to de-saturation through night. Pt asks for therapy to pull her up in bed. Nursing and OT adjusted pt. in bed. Pt. somewhat agitated. OT and nursing encouraged pt. to allow for elevated heels on bed. Pt. adamant that she does not want this. Agrees to bilateral UE exercises. Completes 10 hand squeezes and 10 elbow flexion exercises. Allows for OT and nursing to roll slightly to side and position pillow under her. After this, pt. declines all further attempts at treatment. Education OT Patient Education: Correct positioning, Exercise program, Purpose of tx/functional activities, Reviewed precautions, Rehab process Teaching Recipient: Patient Teaching Methods: Demonstration, Discussion Response to Teaching: Reinforcement Needed OT Short Term Goals Short Term Goals Time Frame: Jul 14, 2019 Eatin (When cleared.) Oral hygiene: 3 OT [facility] Goals [place] Blower Goals Time Frame: Jul 21, 2019 Eating (QC): 4 Oral Hygiene (QC): 4 Toileting Hygiene (QC): 4 Upper Body Dressing (QC): 4 Additional Goals: 1-Demonstrate ADL Tasks, 2-Verbalize Understanding, 3- ImproveStrength/Jose J 1=Demonstrate adherence to instructed precautions during ADL tasks. 2=Patient will verbalize/demonstrate understanding of assistive devices/modifications for ADL. 3=Patient will improve strength/tolerance for activity to enable patient to perform ADL's. OT Education/Plan Problem List/Assessment Assessment: Decreased Activ Tolerance, Decreased UE Strength, Dependent Transfers, Impaired Bed Mobility, Impaired I ADL's, Impaired Self-Care Skills Discharge Recommendations Plan/Recommendations: Continue POC Therapy Discharge Recommendati: 24 Hour Supervision Treatment Plan/Plan of Care Treatment,Training & Education: Yes Patient would benefit from OT for education, treatment and training to promote independence in ADL's, mobility, safety and/or upper extremity function for ADL's. Plan of Care: ADL Retraining, Functional Mobility, UE Funct Exercise/Act Treatment Duration: Jul 21, 2019 Frequency: 5 times per week Estimated Hrs Per Day: .25 hour per day Agreement: Yes Rehab Potential: Fair Time/GCodes Start Time: 10:25 Stop Time: 10:40 Total Time Billed (hr/min): 15 Billed Treatment Time 1, ADDISON FLORES OT Jul 02, 2019 13:55
[2019-07-02 15:41] LABS: CREATININE SERUM 1.45 MG/DL (0.60-1.30); POTASSIUM 4.2 MMOL/L (3.6-5.0)
--- NOTE | 2019-07-02 15:41 | NUR ---
"RD ASSESSMENT PMHx: afib; hypercholesterolemia; HTN; renal failure; GERD; COPD PT INTERACTION: Pt was awake and pleasant during nutrition assessment. Pt states current appetite is good and has been for some time. Pt states no recent issues with n/v/c/d at this time. Note last BM was 07/01 and pt not currently on bowel regimen at this time. Pt states no recent wt changes. Note unable to determine recent wt hx, per chart review. ABNORMAL NUTRITION-RELATED LAB VALUES LOW: Ca 7.9 HIGH: Na 146; K 5.3; Cl 112; BUN 45; cr 1.42 Est. kcal needs: 1988-6322 kcal | 15-18 kcal/kg Est. Pro needs: 59-83 g Pro | 0.5-0.8 g Pro/kg (for renal impairment) PES STATEMENT: Inadequate oral intake (NI-2.1) related to recent NPO status as evidenced by pt interview | chart review INTERVENTION: Continue with current diet order of Clear Liquid diet. Advance diet as medically able and as tolerated. Add Ensure Clear to meals TID, for increased kcal intake. Provides 250 kcal and 8 g Pro per serving. Will continue to follow and reassess as pt needs and status change. MONITOR/EVALUATE: PO Intake; Plan of Care; Hydration Status; Weight Status; Lab Values Collin Barrios, MS, RD, LD"
[2019-07-02 15:42] LABS: ALBUMIN 3.3 GM/DL (3.2-4.5); BILIRUBIN,TOTAL 0.3 MG/DL (0.1-1.0); CALCIUM 8.1 MG/DL (8.5-10.1); TOTAL PROTEIN 5.9 GM/DL (6.4-8.2)
[2019-07-02] MEDS: cefTRIAXone 1,000 MG/SWFI 10 ML IV PUSH IV SCH ×2 (18:12)
[2019-07-02] MEDS: AZITHROMYCIN 500 MG/NS 250 ML IVPB IV SCH ×2 (20:11)
[2019-07-03] VITALS (29 sets, daily range): BP systolic 125–175; BP diastolic 59–81
[2019-07-03] MEDS: aCETylcysteine 20% (MUCOMYST) 30ML SOLN VIAL INH SCH ×6 (02:06→22:25)
[2019-07-03] MEDS: RT-ALBUTEROL/IPRATROPIUM 3 ML (DUONEB) VIAL INH SCH ×6 (02:06→22:25)
[2019-07-03 03:12] LABS: ABG BASE EXCESS 1.9 MMOL/L (-2.5-2.5); ABG OXYGEN SATURATION 98 % (94-100); ABG PO2 95 MMHG (79-93); ABG TCO2 32.2 MMOL/L (21.0-31.0); BASOPHILS % (AUTO) 0 % (0-10); EOSINOPHILS % (AUTO) 0 % (0-10); HEMATOCRIT 32 % (35-52); HEMOGLOBIN 8.6 G/DL (11.5-16.0); LYMPHOCYTES # (AUTO) 0.2 X 10^3 (1.0-4.0); LYMPHOCYTES % (AUTO) 3 % (12-44); MEAN CORPUSCULAR HEMOGLOBIN 28 PG (25-34); MEAN CORPUSCULAR HGB CONC 27 G/DL (32-36); MEAN CORPUSCULAR VOLUME 102 FL (80-99); MEAN PLATELET VOLUME 10.6 FL (7.4-10.4); MONOCYTES # (AUTO) 0.2 X 10^3 (0.0-1.0); MONOCYTES % (AUTO) 3 % (0-12); NEUTROPHILS # (AUTO) 5.3 X 10^3 (1.8-7.8); NEUTROPHILS % (AUTO) 94 % (42-75); PLATELET COUNT 119 10^3/uL (130-400); RED CELL DISTRIBUTION WIDTH 16.7 % (10.0-14.5); WHITE BLOOD COUNT 5.6 10^3/uL (4.3-11.0)
[2019-07-03 03:16] LABS: ABG PCO2 83 MMHG (35-45); ALLENS TEST YES-POS; INSPIRED O2 25%; VENTILATOR NO
[2019-07-03 03:17] LABS: ABG PH 7.18 (7.37-7.43)
[2019-07-03 03:48] LABS: CALCIUM 8.5 MG/DL (8.5-10.1); CREATININE SERUM 1.55 MG/DL (0.60-1.30); MAGNESIUM 2.1 MG/DL (1.6-2.4); PHOSPHORUS 4.9 MG/DL (2.3-4.7); POTASSIUM 4.3 MMOL/L (3.6-5.0)
--- NOTE | 2019-07-03 03:51 | NUR ---
ORDERS FROM S[facility]IE TO CHANGE BIPAP SETTING TO 18/8 WITH A RR OF 14. ABG IN 1 HR. WILL CONTINUE TO MONITOR.
--- NOTE | 2019-07-03 04:42 | Pulmonary Progress Note ---
Subjective Time Seen by a Provider: 04:46 Subjective/Events-last exam Pt is awake and alert on BiPAP. repeat ABG is pending. Sepsis Event Evaluation Height, Weight, BMI Height: 5'4.00" Weight: 246lbs. 2.0oz. 111.481317df; 44.00 BMI Method:Stated Focused Exam Lactate Level 06/30/19 05:00: Lactic Acid Level 0.36L Exam Exam Vital Signs Date Time Temp Pulse Resp B/P (MAP) Pulse Ox O2 Delivery O2 Flow Rate FiO2 07/03/19 03:53 92 NIV Bilevel 28 07/03/19 03:52 37.0 NIV Bilevel 28.00 07/03/19 03:00 77 17 125/64 (84) 97 NIV Bilevel 25.00 07/03/19 02:06 78 16 98 25.00 07/03/19 02:00 75 18 140/60 (86) 99 NIV Bilevel 25.00 07/03/19 01:00 79 18 141/74 (96) 92 NIV Bilevel 25.00 07/03/19 01:00 71 07/03/19 00:00 77 137/69 (91) 92 NIV Bilevel 25.00 07/02/19 23:51 92 NIV Bilevel 25 07/02/19 23:44 36.6 NIV Bilevel 25.00 07/02/19 23:00 76 133/55 (81) 96 NIV Bilevel 35.00 07/02/19 22:00 82 17 130/61 (84) 97 NIV Bilevel 35.00 07/02/19 21:29 85 19 91 25.00 07/02/19 21:00 86 16 118/72 (87) 94 NIV Bilevel 35.00 07/02/19 20:35 NIV Bilevel 35.00 07/02/19 20:00 93 NIV Bilevel 35 07/02/19 20:00 89 24 142/74 (96) 95 NIV Bilevel 25.00 07/02/19 20:00 36.4 07/02/19 19:00 100 07/02/19 19:00 93 25 153/72 (99) 94 NIV Bilevel 25.00 07/02/19 18:02 95 Vapotherm 20.00 40 07/02/19 18:00 87 27 159/73 (101) 91 NIV Bilevel 25.00 07/02/19 17:00 82 24 162/72 (102) 92 NIV Bilevel 25.00 07/02/19 16:00 93 Vapotherm 40 07/02/19 16:00 36.1 07/02/19 16:00 85 7 163/83 (109) 95 NIV Bilevel 25.00 07/02/19 15:00 79 16 153/77 (102) 97 NIV Bilevel 25.00 07/02/19 14:56 96 Vapotherm 20.00 40 07/02/19 14:00 79 11 162/76 (104) 96 NIV Bilevel 25.00 07/02/19 13:00 73 25 157/72 (100) 96 NIV Bilevel 25.00 07/02/19 13:00 73 07/02/19 12:00 73 10 140/76 (97) 96 NIV Bilevel 25.00 07/02/19 12:00 96 Vapotherm 40 07/02/19 11:48 36.4 07/02/19 11:25 98 Vapotherm 30.00 45 07/02/19 11:00 73 23 169/80 (109) 96 NIV Bilevel 25.00 07/02/19 10:00 77 23 156/67 (96) 94 NIV Bilevel 25.00 07/02/19 09:00 90 17 184/81 (115) 88 NIV Bilevel 25.00 07/02/19 09:00 NIV Bilevel 25 07/02/19 08:48 85 19 91 25.00 07/02/19 08:00 95 NIV Bilevel 25 07/02/19 08:00 85 30 177/78 (111) 91 NIV Bilevel 25.00 07/02/19 07:18 NIV Bilevel 25.00 07/02/19 07:00 82 07/02/19 07:00 81 27 167/80 (109) 93 NIV Bilevel 21.00 07/02/19 06:00 81 22 161/72 (101) 92 NIV Bilevel 21.00 07/02/19 05:00 81 31 163/76 (105) 92 NIV Bilevel 21.00 I & O 07/03/19 07:00 Intake Total 775 ml Output Total 1425 ml Balance -650 ml Height & Weight Height: 5'4.00" Weight: 246lbs. 2.0oz. 111.971482nm; 44.00 BMI Method:Stated General Appearance: Anxious, Chronically ill, Mild Distress, Obese HEENT: PERRL/EOMI, Normal ENT Inspection, Pharynx Normal Neck: Normal Inspection Respiratory: No Respiratory Distress, Decreased Breath Sounds, Rhonci Cardiovascular: Regular Rate, Rhythm, No Murmur Capillary Refill: Less Than 3 Seconds Gastrointestinal: normal bowel sounds, non tender, soft Extremity: Swelling, Other (stasis dermatitis on bilateral lower extremities) Neurologic/Psychiatric: Alert Skin: Normal Color, Warm/Dry Lymphatic: No Adenopathy Results Lab Laboratory Tests 07/02/19 02:59 07/02/19 15:12 07/03/19 02:59 Assessment/Plan Assessment/Plan Acute on chronic respiratory failure -Trial pt to Vapotherm currently on BiPAP COPDAE -Solumedrol 40 IV Q 6 -Duoneb Q 4 -Repeat ABG at 10AM -PT is likely to be reintubated today. Keep pt NPO unless she decides to be DNR. Acute renal failure - monitor Hypernatremia -Monitor -D5W PNA -Continue Rocpehin, and Azithromycin Hx of Diastolic CHF grade II - -Monitor Anemia -Check occult stool Thrombocytopenia -Monitor HTN -Add hydralazine PRN ESTRELLITA PITT DO Jul 03, 2019 04:42
[2019-07-03 05:02] LABS: ABG BASE EXCESS 2.6 MMOL/L (-2.5-2.5); ABG OXYGEN SATURATION 87 % (94-100); ABG PCO2 68 MMHG (35-45); ABG PO2 56 MMHG (79-93); ABG TCO2 31.2 MMOL/L (21.0-31.0)
[2019-07-03 05:03] LABS: ALLENS TEST YES-POS; INSPIRED O2 28%; VENTILATOR NO
[2019-07-03 05:05] LABS: ABG PH 7.26 (7.37-7.43)
[2019-07-03] MEDS: D5W 1000 ML IV SOLUTION 1,000 ML IV SCH ×3 (05:07→21:20)
[2019-07-03] MEDS: MAGNESIUM 1 GM/100 ML IVPB 100 ML IV SCH (05:07)
[2019-07-03] MEDS: POTASSIUM CL 10MEQ/50ML IVPB 50 ML IV SCH (05:07)
[2019-07-03] MEDS: KCL 20 MEQ TAB (K-DUR) PO SCH (05:07)
[2019-07-03] MEDS: inSUlin ASPART (NovoLOG) 1 UNIT/0.01 ML (CHARGE PER UNIT) SC SCH ×3 (05:08→18:17)
[2019-07-03] MEDS: LEVOTHYROXINE 25 MCG (LEVOTHROID) TAB PO SCH (05:08)
[2019-07-03] MEDS: LEVOTHYROXINE 150 MCG (LEVOTHROID) TAB PO SCH (05:08)
[2019-07-03] MEDS: methylPREDNISolone 40 MG/ML (Solu-MEDROL) VIAL IV SCH ×3 (05:24→18:17)
[2019-07-03] MEDS: RT-BUDESONIDE NEBS 0.5 MG/2ML (PULMICORT) AMP INH SCH ×2 (06:59→18:38)
--- NOTE | 2019-07-03 07:34 | Progress Note ---
Subjective Time Seen by a Provider: 07:29 Subjective/Events-last exam Patient worried about eating. Patient first needs evaluation by speech therapy to avoid aspiration. Patient's ABGs to be rechecked on 10 a.m. today. Patient may be reintubated Objective Exam Vital Signs Date Time Temp Pulse Resp B/P (MAP) Pulse Ox O2 Delivery O2 Flow Rate FiO2 07/03/19 07:06 71 17 94 30.00 07/03/19 07:00 71 17 94 30.00 07/03/19 06:00 72 13 141/61 (87) 94 NIV Bilevel 28.00 07/03/19 05:00 78 21 144/80 (101) 92 NIV Bilevel 28.00 07/03/19 04:00 78 19 147/59 (88) 92 NIV Bilevel 28.00 07/03/19 03:53 92 NIV Bilevel 28 07/03/19 03:52 37.0 NIV Bilevel 28.00 07/03/19 03:00 77 17 125/64 (84) 97 NIV Bilevel 25.00 07/03/19 02:06 78 16 98 25.00 07/03/19 02:00 75 18 140/60 (86) 99 NIV Bilevel 25.00 07/03/19 01:00 79 18 141/74 (96) 92 NIV Bilevel 25.00 07/03/19 01:00 71 07/03/19 00:00 77 137/69 (91) 92 NIV Bilevel 25.00 07/02/19 23:51 92 NIV Bilevel 25 07/02/19 23:44 36.6 NIV Bilevel 25.00 07/02/19 23:00 76 133/55 (81) 96 NIV Bilevel 35.00 07/02/19 22:00 82 17 130/61 (84) 97 NIV Bilevel 35.00 07/02/19 21:29 85 19 91 25.00 07/02/19 21:00 86 16 118/72 (87) 94 NIV Bilevel 35.00 07/02/19 20:35 NIV Bilevel 35.00 07/02/19 20:00 93 NIV Bilevel 35 07/02/19 20:00 89 24 142/74 (96) 95 NIV Bilevel 25.00 07/02/19 20:00 36.4 07/02/19 19:00 100 07/02/19 19:00 93 25 153/72 (99) 94 NIV Bilevel 25.00 07/02/19 18:02 95 Vapotherm 20.00 40 07/02/19 18:00 87 27 159/73 (101) 91 NIV Bilevel 25.00 07/02/19 17:00 82 24 162/72 (102) 92 NIV Bilevel 25.00 07/02/19 16:00 93 Vapotherm 40 07/02/19 16:00 36.1 07/02/19 16:00 85 7 163/83 (109) 95 NIV Bilevel 25.00 07/02/19 15:00 79 16 153/77 (102) 97 NIV Bilevel 25.00 07/02/19 14:56 96 Vapotherm 20.00 40 07/02/19 14:00 79 11 162/76 (104) 96 NIV Bilevel 25.00 07/02/19 13:00 73 25 157/72 (100) 96 NIV Bilevel 25.00 07/02/19 13:00 73 07/02/19 12:00 73 10 140/76 (97) 96 NIV Bilevel 25.00 07/02/19 12:00 96 Vapotherm 40 07/02/19 11:48 36.4 07/02/19 11:25 98 Vapotherm 30.00 45 07/02/19 11:00 73 23 169/80 (109) 96 NIV Bilevel 25.00 07/02/19 10:00 77 23 156/67 (96) 94 NIV Bilevel 25.00 07/02/19 09:00 90 17 184/81 (115) 88 NIV Bilevel 25.00 07/02/19 09:00 NIV Bilevel 25 07/02/19 08:48 85 19 91 25.00 07/02/19 08:00 95 NIV Bilevel 25 07/02/19 08:00 85 30 177/78 (111) 91 NIV Bilevel 25.00 I & O 07/03/19 07:00 Intake Total 775 ml Output Total 1575 ml Balance -800 ml Capillary Refill : Less Than 3 Seconds General Appearance: No Apparent Distress, WD/WN HEENT: Other (Patient on BiPAP) Neck: Normal Inspection, Non Tender Respiratory: No Accessory Muscle Use, No Respiratory Distress, Decreased Breath Sounds, Other (On BiPAP) Cardiovascular: No Murmur Gastrointestinal: non tender, soft Results Lab Laboratory Tests 07/02/19 15:12 07/03/19 02:59 Laboratory Tests 07/02/19 11:47: Glucometer 101 07/02/19 15:12: Sodium Level 148H, Potassium Level 4.2, Chloride Level 112H, Carbon Dioxide Level 25, Anion Gap 11, Blood Urea Nitrogen 46H, Creatinine 1.45H, Estimat Glomerular Filtration Rate 36, BUN/Creatinine Ratio 32, Glucose Level 198H, Calcium Level 8.1L, Corrected Calcium 8.7, Total Bilirubin 0.3, Aspartate Amino Transf (AST/SGOT) 33, Alanine Aminotransferase (ALT/SGPT) 44, Alkaline Phosphatase 91, Total Protein 5.9L, Albumin 3.3 07/02/19 23:43: Glucometer 205H 07/03/19 02:59: Sodium Level 148H, Potassium Level 4.3, Chloride Level 111H, Carbon Dioxide Level 26, Anion Gap 11, Blood Urea Nitrogen 51H, Creatinine 1.55H, Estimat Glomerular Filtration Rate 33, BUN/Creatinine Ratio 33, Glucose Level 164H, Calcium Level 8.5, White Blood Count 5.6, Red Blood Count 3.08L, Hemoglobin 8.6L , Hematocrit 32L, Mean Corpuscular Volume 102H, Mean Corpuscular Hemoglobin 28, Mean Corpuscular Hemoglobin Concent 27L, Red Cell Distribution Width 16.7H, Platelet Count 119L, Mean Platelet Volume 10.6H, Neutrophils (%) (Auto) 94H, Lymphocytes (%) (Auto) 3L, Monocytes (%) (Auto) 3, Eosinophils (%) (Auto) 0, Basophils (%) (Auto) 0, Neutrophils # (Auto) 5.3, Lymphocytes # (Auto) 0.2L, Monocytes # (Auto) 0.2, Eosinophils # (Auto) 0.0, Basophils # (Auto) 0.0, Blood Gas Puncture Site L RAD, Blood Gas Patient Temperature 37.0, Arterial Blood pH 7.18*L, Arterial Blood Partial Pressure CO2 83*H, Arterial Blood Partial Pressure O2 95H, Arterial Blood HCO3 30H, Arterial Blood Total CO2 32.2H, Arterial Blood Oxygen Saturation 98, Arterial Blood Base Excess 1.9, Clif Test YES-POS, Blood Gas Ventilator Setting NO, Blood Gas Inspired Oxygen 25%, Phosphorus Level 4.9H, Magnesium Level 2.1 07/03/19 04:57: Blood Gas Puncture Site L RAD, Blood Gas Patient Temperature 37.0, Arterial Blood pH 7.26*L, Arterial Blood Partial Pressure CO2 68H, Arterial Blood Partial Pressure O2 56L, Arterial Blood HCO3 29H, Arterial Blood Total CO2 31.2H, Arterial Blood Oxygen Saturation 87L, Arterial Blood Base Excess 2.6H, Clif Test YES-POS, Blood Gas Ventilator Setting NO, Blood Gas Inspired Oxygen 28% Microbiology 06/28/19 MRSA Screen - Final, Complete 06/26/19 Blood Culture - Final, Complete No growth Assessment/Plan Assessment/Plan Assess & Plan/Chief Complaint Acute and chronic respiratory failure. COPD with acute exacerbation. Acute renal failure. Pneumonia or Thrombocytopenia. Hypertension. Hypoxia. . 07/01/2019. Electrolyte imbalance. Acute and chronic respiratory failure. Thrombocytopenia. COPD with acute exacerbation. Renal insufficiency. Pneumonia. Hypertension. Hypoxia.. . 07/02/2019. Maryam chronic respiratory failure. Thrombocytopenia better COPD with acute exacerbation. Renal insufficiency. Pneumonia. Hypertension. Hypoxia. . 07/03/2019. Acute and chronic respiratory failure. Thrombocytopenia likely 119,000 COPD with Acute Exacerbation. Renal Insufficiency. Pneumonia. Hypoxia. Hypertension Better Clinical Quality Measures Admission Status Admission Dx COPD with acute exacerbation left lower lobe pneumonia renal insufficiency acute short of breath acute respiratory failure thrombocytopenia hypertension hyperlipidemia DVT/VTE Risk/Contraindication: Risk Factor Score Per Nursin RFS Level Per Nursing on Admit: 4+=Very High AURORA STACK DO Jul 03, 2019 07:34
[2019-07-03] MEDS: meTOprolol TARTRATE 25 MG (LOPRESSOR) TABLET PO SCH ×2 (07:39→21:20)
[2019-07-03] MEDS: amLODIPine 5 MG (NORVASC) TAB PO SCH (07:40)
[2019-07-03] MEDS: PANTOPRAZOLE 40 MG (PROTONIX) VIAL IV SCH (08:11)
[2019-07-03] MEDS: HALOPERIDOL 5 MG/ML (HALDOL) AMP IV SCH ×2 (08:11→21:20)
--- NOTE | 2019-07-03 08:33 | Diagnostic Imaging Report ---
INDICATION: Shortness of breath COMPARISON: 07/02/2019 FINDINGS: Single view of the chest demonstrates cardiac enlargement with stable central vascular congestion and dependent atelectasis. No large effusion is seen. There is no pneumothorax. PICC line is in stable position. IMPRESSION: Unchanged aeration of the lungs Dictated by: Dictated on workstation # [id number]
--- NOTE | 2019-07-03 10:04 | Physical Therapy Progress Note ---
Therapy Progress Note Therapy held due to declining medical status per the nurse. 1 visit 830 MIGDALIA OSORIO PT Jul 03, 2019 10:04
[2019-07-03 10:07] LABS: ABG BASE EXCESS 3.4 MMOL/L (-2.5-2.5); ABG OXYGEN SATURATION 94 % (94-100); ABG PCO2 61 MMHG (35-45); ABG PO2 65 MMHG (79-93); ABG TCO2 31.3 MMOL/L (21.0-31.0)
[2019-07-03 10:09] LABS: ALLENS TEST POSITIVE; INSPIRED O2 30%; PATIENT TEMP 36.7; VENTILATOR NO
--- NOTE | 2019-07-03 10:12 | NUR ---
Pt remains on Bipap at 30% FIO2. pt is lethargic. Dr Arrieta Notified and updated with ABG results. Pt has no new complaints. Vitals have remained stable. Will continue to monitor.
--- NOTE | 2019-07-03 10:58 | Occ Therapy Progress Note ---
Therapy Progress Note OT spoke with nursing. Nursing okay for OT to attempt treatment if pt. will allow. Pt. on bipap. Unable to stay awake but also declines to work with OT. OT encourages her to participate in UE stretch, ROM, re-positioning. Pt. declines. Will continue to monitor pt. 1, visit 1050 ADDISON NEWTON OT Jul 03, 2019 10:58
[2019-07-03] MEDS: hydrALAZINE (APESOLINE) 20 MG/ML VIAL IV PRN ×2 (15:12→21:19)
[2019-07-03] MEDS: AZITHROMYCIN 500 MG/NS 250 ML IVPB IV SCH ×2 (21:20)
[2019-07-03] MEDS: morphine INJ 4 MG/ML 1 ML (VIAL/SYRINGE) IVP PRN (22:26)
[2019-07-04] VITALS (27 sets, daily range): BP systolic 115–147; BP diastolic 48–70
[2019-07-04] MEDS: inSUlin ASPART (NovoLOG) 1 UNIT/0.01 ML (CHARGE PER UNIT) SC SCH ×5 (00:34→23:50)
[2019-07-04] MEDS: methylPREDNISolone 40 MG/ML (Solu-MEDROL) VIAL IV SCH ×5 (00:34→23:49)
[2019-07-04] MEDS: aCETylcysteine 20% (MUCOMYST) 30ML SOLN VIAL INH SCH ×6 (02:15→21:07)
[2019-07-04] MEDS: RT-ALBUTEROL/IPRATROPIUM 3 ML (DUONEB) VIAL INH SCH ×6 (02:15→21:07)
[2019-07-04 03:36] LABS: BASOPHILS % (AUTO) 0 % (0-10); EOSINOPHILS % (AUTO) 0 % (0-10); HEMATOCRIT 31 % (35-52); HEMOGLOBIN 8.4 G/DL (11.5-16.0); LYMPHOCYTES # (AUTO) 0.2 X 10^3 (1.0-4.0); LYMPHOCYTES % (AUTO) 2 % (12-44); MEAN CORPUSCULAR HEMOGLOBIN 28 PG (25-34); MEAN CORPUSCULAR HGB CONC 28 G/DL (32-36); MEAN CORPUSCULAR VOLUME 100 FL (80-99); MEAN PLATELET VOLUME 10.7 FL (7.4-10.4); MONOCYTES # (AUTO) 0.2 X 10^3 (0.0-1.0); MONOCYTES % (AUTO) 3 % (0-12); NEUTROPHILS # (AUTO) 6.6 X 10^3 (1.8-7.8); NEUTROPHILS % (AUTO) 95 % (42-75); PLATELET COUNT 133 10^3/uL (130-400); RED CELL DISTRIBUTION WIDTH 16.9 % (10.0-14.5)
[2019-07-04 03:38] LABS: ABG BASE EXCESS 4.4 MMOL/L (-2.5-2.5); ABG OXYGEN SATURATION 95 % (94-100); ABG PCO2 56 MMHG (35-45); ABG PH 7.35 (7.37-7.43); ABG PO2 71 MMHG (79-93); ABG TCO2 31.8 MMOL/L (21.0-31.0); ALLENS TEST YES-POS; INSPIRED O2 30%
[2019-07-04 03:39] LABS: VENTILATOR NO
[2019-07-04 03:58] LABS: CALCIUM 8.4 MG/DL (8.5-10.1); CREATININE SERUM 1.34 MG/DL (0.60-1.30); PHOSPHORUS 3.3 MG/DL (2.3-4.7); POTASSIUM 4.2 MMOL/L (3.6-5.0)
[2019-07-04] MEDS: morphine INJ 4 MG/ML 1 ML (VIAL/SYRINGE) IVP PRN ×4 (04:39→20:05)
[2019-07-04] MEDS: MAGNESIUM 1 GM/100 ML IVPB 100 ML IV SCH (05:01)
[2019-07-04] MEDS: POTASSIUM CL 10MEQ/50ML IVPB 50 ML IV SCH (05:01)
[2019-07-04] MEDS: LEVOTHYROXINE 150 MCG (LEVOTHROID) TAB PO SCH (05:02)
[2019-07-04] MEDS: KCL 20 MEQ TAB (K-DUR) PO SCH (05:02)
[2019-07-04] MEDS: LEVOTHYROXINE 25 MCG (LEVOTHROID) TAB PO SCH (05:02)
--- NOTE | 2019-07-04 05:18 | Pulmonary Progress Note ---
Subjective Time Seen by a Provider: 05:15 Subjective/Events-last exam Pt complains of SOB. Sepsis Event Evaluation Height, Weight, BMI Height: 5'4.00" Weight: 246lbs. 2.0oz. 111.642018qs; 44.00 BMI Method:Stated Exam Exam Vital Signs Date Time Temp Pulse Resp B/P (MAP) Pulse Ox O2 Delivery O2 Flow Rate FiO2 07/04/19 04:00 93 NIV Bilevel 30 07/04/19 03:00 82 17 146/70 (95) 94 NIV Bilevel 30.00 07/04/19 02:17 74 15 94 30.00 07/04/19 02:00 79 22 144/62 (89) 95 NIV Bilevel 30.00 07/04/19 01:00 73 143/59 (87) 93 NIV Bilevel 30.00 07/04/19 01:00 73 07/04/19 00:29 93 NIV Bilevel 30 07/04/19 00:00 74 134/50 (78) 93 NIV Bilevel 30.00 07/03/19 23:00 63 18 131/60 (83) 93 NIV Bilevel 30.00 07/03/19 22:00 100 151/71 (97) 95 NIV Bilevel 30.00 07/03/19 21:00 87 34 166/69 (101) 95 NIV Bilevel 30.00 07/03/19 20:00 36.6 07/03/19 20:00 100 22 175/81 (112) 95 NIV Bilevel 30.00 07/03/19 20:00 93 NIV Bilevel 30 07/03/19 19:00 90 07/03/19 19:00 82 16 168/73 (104) 94 NIV Bilevel 30.00 07/03/19 18:43 76 19 93 30.00 07/03/19 18:00 75 18 151/64 (93) 94 NIV Bilevel 30.00 07/03/19 17:00 77 30 152/64 (93) 95 NIV Bilevel 30.00 07/03/19 16:00 93 30 168/69 (102) 95 NIV Bilevel 30.00 07/03/19 15:57 94 NIV Bilevel 30 07/03/19 15:00 36.7 07/03/19 15:00 104 15 170/72 (104) 94 NIV Bilevel 30.00 07/03/19 14:38 83 24 96 30.00 07/03/19 14:00 81 37 161/71 (101) 94 NIV Bilevel 30.00 07/03/19 13:31 NIV Bilevel 30.00 07/03/19 13:00 74 14 153/71 (98) 83 NIV Bilevel 24.00 07/03/19 13:00 75 07/03/19 12:00 94 NIV Bilevel 24 07/03/19 12:00 80 17 162/73 (102) 91 NIV Bilevel 24.00 07/03/19 11:42 36.9 07/03/19 11:21 NIV Bilevel 24.00 07/03/19 11:20 73 17 94 30.00 07/03/19 11:00 74 16 151/62 (91) 96 NIV Bilevel 30.00 07/03/19 10:00 80 19 154/67 (96) 93 NIV Bilevel 30.00 07/03/19 09:00 75 138/59 (85) 94 NIV Bilevel 30.00 07/03/19 08:00 36.5 07/03/19 08:00 94 NIV Bilevel 30 07/03/19 08:00 80 20 156/59 (91) 95 NIV Bilevel 30.00 07/03/19 07:06 71 17 94 30.00 07/03/19 07:00 72 07/03/19 07:00 71 17 94 30.00 07/03/19 07:00 71 15 150/61 (90) 95 NIV Bilevel 30.00 07/03/19 06:00 72 13 141/61 (87) 94 NIV Bilevel 28.00 I & O 07/04/19 07:00 Intake Total 1250 ml Output Total 1075 ml Balance 175 ml Height & Weight Height: 5'4.00" Weight: 246lbs. 2.0oz. 111.105997mb; 44.00 BMI Method:Stated General Appearance: No Apparent Distress, WD/WN HEENT: Other (Patient on BiPAP) Neck: Normal Inspection, Non Tender Respiratory: No Accessory Muscle Use, No Respiratory Distress, Decreased Breath Sounds, Other (On BiPAP) Cardiovascular: No Murmur Capillary Refill: Less Than 3 Seconds Gastrointestinal: non tender, soft Extremity: Swelling, Other (stasis dermatitis on bilateral lower extremities) Neurologic/Psychiatric: Alert Skin: Normal Color, Warm/Dry Lymphatic: No Adenopathy Results Lab Laboratory Tests 07/02/19 15:12 07/03/19 02:59 07/04/19 03:25 Assessment/Plan Assessment/Plan Acute on chronic respiratory failure -Trial pt to Vapotherm currently on BiPAP -Start Lasix 40 mg BID COPDAE -Solumedrol 40 IV Q 6 -Duoneb Q 4 Acute renal failure - monitor Hypernatremia -- resolved -D/C IVF -Monitor -D5W PNA -Continue Rocpehin, and Azithromycin Hx of Diastolic CHF grade II - -Monitor Anemia -Check occult stool Thrombocytopenia -Monitor HTN -Add hydralazine PRN ESTRELLITA PITT DO Jul 04, 2019 05:18
--- NOTE | 2019-07-04 07:30 | Progress Note ---
Subjective Time Seen by a Provider: 07:26 Subjective/Events-last exam Patient doing better today. Patient feeling better today. Arterial blood gases look better today. Patient go on Vapotherm today. GFR improved. Platelet count improved. Patient voicing no complaints Objective Exam Vital Signs Date Time Temp Pulse Resp B/P (MAP) Pulse Ox O2 Delivery O2 Flow Rate FiO2 07/04/19 07:16 71 15 93 28.00 07/04/19 06:00 76 25 122/48 (72) 93 NIV Bilevel 30.00 07/04/19 05:00 70 28 124/48 (73) 93 NIV Bilevel 30.00 07/04/19 04:00 78 23 147/60 (89) 93 NIV Bilevel 30.00 07/04/19 04:00 93 NIV Bilevel 30 07/04/19 03:00 82 17 146/70 (95) 94 NIV Bilevel 30.00 07/04/19 02:17 74 15 94 30.00 07/04/19 02:00 79 22 144/62 (89) 95 NIV Bilevel 30.00 07/04/19 01:00 73 143/59 (87) 93 NIV Bilevel 30.00 07/04/19 01:00 73 07/04/19 00:29 93 NIV Bilevel 30 07/04/19 00:00 74 134/50 (78) 93 NIV Bilevel 30.00 07/03/19 23:00 63 18 131/60 (83) 93 NIV Bilevel 30.00 07/03/19 22:00 100 151/71 (97) 95 NIV Bilevel 30.00 07/03/19 21:00 87 34 166/69 (101) 95 NIV Bilevel 30.00 07/03/19 20:00 36.6 07/03/19 20:00 100 22 175/81 (112) 95 NIV Bilevel 30.00 07/03/19 20:00 93 NIV Bilevel 30 07/03/19 19:00 90 07/03/19 19:00 82 16 168/73 (104) 94 NIV Bilevel 30.00 07/03/19 18:43 76 19 93 30.00 07/03/19 18:00 75 18 151/64 (93) 94 NIV Bilevel 30.00 07/03/19 17:00 77 30 152/64 (93) 95 NIV Bilevel 30.00 07/03/19 16:00 93 30 168/69 (102) 95 NIV Bilevel 30.00 07/03/19 15:57 94 NIV Bilevel 30 07/03/19 15:00 36.7 07/03/19 15:00 104 15 170/72 (104) 94 NIV Bilevel 30.00 07/03/19 14:38 83 24 96 30.00 07/03/19 14:00 81 37 161/71 (101) 94 NIV Bilevel 30.00 07/03/19 13:31 NIV Bilevel 30.00 07/03/19 13:00 74 14 153/71 (98) 83 NIV Bilevel 24.00 07/03/19 13:00 75 07/03/19 12:00 94 NIV Bilevel 24 07/03/19 12:00 80 17 162/73 (102) 91 NIV Bilevel 24.00 07/03/19 11:42 36.9 07/03/19 11:21 NIV Bilevel 24.00 07/03/19 11:20 73 17 94 30.00 07/03/19 11:00 74 16 151/62 (91) 96 NIV Bilevel 30.00 07/03/19 10:00 80 19 154/67 (96) 93 NIV Bilevel 30.00 07/03/19 09:00 75 138/59 (85) 94 NIV Bilevel 30.00 07/03/19 08:00 36.5 07/03/19 08:00 94 NIV Bilevel 30 07/03/19 08:00 80 20 156/59 (91) 95 NIV Bilevel 30.00 I & O 07/04/19 07:00 Intake Total 1250 ml Output Total 1325 ml Balance -75 ml Capillary Refill : Less Than 3 Seconds General Appearance: No Apparent Distress, WD/WN HEENT: Normal ENT Inspection Neck: Full Range of Motion, Normal Inspection Respiratory: Lungs Clear, No Accessory Muscle Use, No Respiratory Distress, Decreased Breath Sounds Cardiovascular: Regular Rate, Rhythm, No Murmur Gastrointestinal: non tender, soft Results Lab Laboratory Tests 07/04/19 03:25 Laboratory Tests 07/03/19 09:45: Blood Gas Puncture Site LEFT RADIAL, Blood Gas Patient Temperature 36.7, Arterial Blood pH 7.30*L, Arterial Blood Partial Pressure CO2 61H, Arterial Blood Partial Pressure O2 65L, Arterial Blood HCO3 29H, Arterial Blood Total CO2 31.3H, Arterial Blood Oxygen Saturation 94, Arterial Blood Base Excess 3.4H, Al bruce Test POSITIVE, Blood Gas Ventilator Setting NO, Blood Gas Inspired Oxygen 30% 07/03/19 11:42: Glucometer 170H 07/03/19 18:10: Glucometer 163H 07/03/19 21:18: Glucometer 192H 07/04/19 00:28: Glucometer 278H 07/04/19 03:25: White Blood Count 7.0, Red Blood Count 3.05L, Hemoglobin 8.4L, Hematocrit 31L, Mean Corpuscular Volume 100H, Mean Corpuscular Hemoglobin 28, Mean Corpuscular Hemoglobin Concent 28L, Red Cell Distribution Width 16.9H, Platelet Count 133, Mean Platelet Volume 10.7H, Neutrophils (%) (Auto) 95H, Lymphocytes (%) (Auto) 2L, Monocytes (%) (Auto) 3, Eosinophils (%) (Auto) 0, Basophils (%) (Auto) 0, Neutrophils # (Auto) 6.6, Lymphocytes # (Auto) 0.2L, Monocytes # (Auto) 0.2, Eosinophils # (Auto) 0.0, Basophils # (Auto) 0.0, Sodium Level 146H, Potassium Level 4.2, Chloride Level 110H, Carbon Dioxide Level 26, Anion Gap 10, Blood Urea Nitrogen 48H, Creatinine 1.34H, Estimat Glomerular Filtration Rate 39, BUN/Creatinine Ratio 36, Glucose Level 156H, Calcium Level 8.4L, Phosphorus Level 3.3, Magnesium Level 2.0 07/04/19 03:33: Blood Gas Puncture Site LEFT RADIAL, Blood Gas Patient Temperature 36.0, Arterial Blood pH 7.35L, Arterial Blood Partial Pressure CO2 56H, Arterial Blood Partial Pressure O2 71L, Arterial Blood HCO3 30H, Arterial Blood Total CO2 31.8H , Arterial Blood Oxygen Saturation 95, Arterial Blood Base Excess 4.4H, Clif Test YES-POS, Blood Gas Ventilator Setting NO, Blood Gas Inspired Oxygen 30% Microbiology 06/28/19 MRSA Screen - Final, Complete 06/26/19 Blood Culture - Final, Complete No growth Assessment/Plan Assessment/Plan Assess & Plan/Chief Complaint Acute and chronic respiratory failure. COPD with acute exacerbation. Acute renal failure. Pneumonia or Thrombocytopenia. Hypertension. Hypoxia. . 07/01/2019. Electrolyte imbalance. Acute and chronic respiratory failure. Thrombocytopenia. COPD with acute exacerbation. Renal insufficiency. Pneumonia. Hypertension. Hypoxia.. . 07/02/2019. Maryam chronic respiratory failure. Thrombocytopenia better COPD with acute exacerbation. Renal insufficiency. Pneumonia. Hypertension. Hypoxia. . 07/03/2019. Acute and chronic respiratory failure. Thrombocytopenia likely 119,000 COPD with Acute Exacerbation. Renal Insufficiency. Pneumonia. Hypoxia. Hypertension Better. . 07/04/2019. Hypertension better. Thrombocytopenia better. Blood gases better. Renal insufficiency. Pneumonia. Hypoxia. Unit chronic respiratory failure Clinical Quality Measures Admission Status Admission Dx COPD with acute exacerbation left lower lobe pneumonia renal insufficiency acute short of breath acute respiratory failure thrombocytopenia hypertension hyperlipidemia DVT/VTE Risk/Contraindication: Risk Factor Score Per Nursin RFS Level Per Nursing on Admit: 4+=Very High AURORA STACK DO Jul 04, 2019 07:30
[2019-07-04] MEDS: meTOprolol TARTRATE 25 MG (LOPRESSOR) TABLET PO SCH ×2 (07:38→20:04)
[2019-07-04] MEDS: amLODIPine 5 MG (NORVASC) TAB PO SCH (07:38)
[2019-07-04] MEDS: PANTOPRAZOLE 40 MG (PROTONIX) VIAL IV SCH (07:46)
[2019-07-04] MEDS: HALOPERIDOL 5 MG/ML (HALDOL) AMP IV SCH ×2 (07:47→20:04)
--- NOTE | 2019-07-04 08:01 | Diagnostic Imaging Report ---
HISTORY: Dyspnea TECHNIQUE: Single frontal view of the chest COMPARISON: 07/03/2019 FINDINGS: There is stable cardiomegaly with mild central vascular congestion. Aeration appears mildly improved. No significant pleural effusion or pneumothorax is seen. The right PICC line tip projects over the cavoatrial junction. IMPRESSION: 1. Stable cardiomegaly and vascular congestion with mildly improved aeration. Dictated by: Dictated on workstation # [id number]
[2019-07-04] MEDS: RT-BUDESONIDE NEBS 0.5 MG/2ML (PULMICORT) AMP INH SCH ×2 (08:02→18:36)
--- NOTE | 2019-07-04 09:10 | Occ Therapy Progress Note ---
Therapy Progress Note OT checked with nursing previous to visit with pt. Pt. okay to participate if able to tolerate. Pt. on bipap. Declines all attempts at treatment, including UE ROM, exercises, and transfers. Pt. states that any movement makes her de- sat, and that she is saving her energy for swallow eval later, in which she will attempt to increase HOB. OT offered to re-position pt., for pressure relief. Pt. declines this as well. States that she is comfortable at this time. Will continue to monitor pt. for skilled activity. [id number] 1, visit x 5minutes ADDISON NEWTON OT Jul 04, 2019 09:10
--- NOTE | 2019-07-04 09:48 | Physical Therapy Progress Note ---
Therapy Progress Note Patient states she is not feeling very well and refuses any therapy. She says she will resume therapy Sunday. 1 visit REF ([id number]) MIGDALIA OSORIO PT Jul 04, 2019 09:48
[2019-07-04] MEDS: D5W 1000 ML IV SOLUTION 1,000 ML IV SCH ×2 (10:00→22:30)
--- NOTE | 2019-07-04 15:14 | ST Dysphagia Evaluation ---
Speech Evaluation-General Medical Diagnosis pneumonia COPD/CO2 retension Onset Date: Jun 27, 2019 Therapy Diagnosis Therapy Diagnosis: Oropharyngeal Dysphagia Referral Referring Physician: Dr. Carrera Medical History Pertinent Medical History: Arthritis, COPD, DM, HTN, Neuropathy, Renal Insufficiency Reviewed History: Yes Speech PLF/Current-Dysphagia Prior Level of Function Patient was living in a fdc prior to hospital admission. Subjective Patient was alert and cooperative for all evaluation tasks. Patients diagnosis is respiratory failure. She has progressed from intubation to nasal cannula with utilization of BiPap intermittently. Patient was sitting upright in her bed for the duration of the evaluation. Cognitive Status Patient Orientation: Person, Place Due to patients recent medical status, her cognitive status has been mildly impacted. Oral Motor Skills Denture Type: Full- Upper Ability to Follow Directions: Good Patient states that she has full upper dentures, however has not worn them for some time. Patient was NPO pending BDE. Oral Expression Ability: No Impairment Voice Voice Phonatory-Based Quality: Normal Voice Pitch: Normal Voice Loudness: Normal Face Facial Symmetry: Symmetrical Oral-Facial Assessment Oral-Facial Dentition: Normal Labial Seal Description: Normal Smile: Normal Puff Cheeks: Normal Lingual Protrusion: Normal Lingual ROM: Normal Lingual Strength: Normal Gag Reflex Response: Normal Pharynx Velopharyngeal Move.: Normal Volitional Dry Swallow: Yes Voluntary Cough: Yes Can Clear Throat Volitionally: Yes Productive Cough: Yes Productive Throat Clear: Yes Dysphagia Evaluation Consistencies Presented: Thin Liquid, Mechanical Soft, Pureed Oral phase within normal functional limits. Pharyngeal phase within normal functional limits. Dietary Recommendations: Mechanical Soft Liquid Recommendations: Thin Smaller bolus sizes followed by alternating liquid wash. Swallowing Precautions: Alternate Liquids/Solids, Decreased Bolus 1/2 Tsp, Liquids from Straw, Small Bites and Sips, Sitting Upright 90 Degrees Dysphagia Evaluation Summary Patient was admitted to the ICU s/p respiratory failure. A BDE was completed to assess overall swallow function. Patient was presented with thin liquids via 1/2 tsp spoon 2X's, pureed consistency via 1/2 Tsp spoon 2X's, and mechanically soft via 1/2 Tsp via spoon 2X's. No s/s of penetration or aspiration were noted throughout the evaluation. Patient dietary recommendations were upgraded to Dysphasia II with thin liquids. Barriers to Learning Respiratory failure, patient's age Speech Short Term Goals Short Term Goals Short Term Goals 1. Patient will tolerate least restrictive diet without s/s of aspiration at 90% or greater. 2. Patient/caregiver will utilize compensatory strategies as trained at 90% or greater with minimal cues. Speech Skilled Nursing Goals Ditcher Goals Patient will maintain adequate nutrition/hydration via safe effective swallow function. Speech-Plan Patient/Family Goals Patient/Family Goals: Patient will return to the fdc facility. Treatment Plan Speech Therapy Treatment Plan: Continue Plan of Care Treatment Duration: Jul 11, 2019 Frequency: 3 times per week Estimated Hrs Per Day: .25 hour per day Rehab Potential: Fair Barriers to Learning: Respiratory failure, patient is a fdc patient. Pt/Family Agrees to Plan: Yes Safety Risks/Education Teaching Recipient: Patient Teaching Methods: Demonstration Response to Teaching: Verbalize Understanding Education Topics Provided: Patient was educated on all compensatory strategies to utilize during mealtime. Time Speech Therapy Time In: 10:00 Speech Therapy Time Out: 10:15 Total Billed Time: 15 Billed Treatment Time 1. PEDRO Mchugh Jul 04, 2019 15:14
--- NOTE | 2019-07-04 22:10 | NUR ---
E-ICU CONTACTED DUE TO PT URINE OUTPUT OF 65 ML IN 4 HR. E-TRAIN CREW MEMBER UPDATED ON LUNG SOUNDS, VITAL SIGNS AND URINE APPEARANCE. AWAITING ORDERS AT THIS TIME
[2019-07-05] VITALS (12 sets, daily range): BP systolic 114–144; BP diastolic 48–75
[2019-07-05] MEDS: RT-ALBUTEROL/IPRATROPIUM 3 ML (DUONEB) VIAL INH SCH ×6 (01:13→21:55)
[2019-07-05] MEDS: aCETylcysteine 20% (MUCOMYST) 30ML SOLN VIAL INH SCH ×6 (01:13→21:55)
[2019-07-05 02:52] LABS: ABG OXYGEN SATURATION 94 % (94-100); ABG PCO2 62 MMHG (35-45); ABG PO2 68 MMHG (79-93); ABG TCO2 30.3 MMOL/L (21.0-31.0)
[2019-07-05 02:54] LABS: BASOPHILS % (AUTO) 0 % (0-10); EOSINOPHILS % (AUTO) 0 % (0-10); HEMATOCRIT 31 % (35-52); HEMOGLOBIN 8.6 G/DL (11.5-16.0); LYMPHOCYTES # (AUTO) 0.1 X 10^3 (1.0-4.0); LYMPHOCYTES % (AUTO) 2 % (12-44); MEAN CORPUSCULAR HEMOGLOBIN 28 PG (25-34); MEAN CORPUSCULAR HGB CONC 28 G/DL (32-36); MEAN CORPUSCULAR VOLUME 101 FL (80-99); MEAN PLATELET VOLUME 10.8 FL (7.4-10.4); MONOCYTES # (AUTO) 0.1 X 10^3 (0.0-1.0); MONOCYTES % (AUTO) 2 % (0-12); NEUTROPHILS # (AUTO) 6.3 X 10^3 (1.8-7.8); NEUTROPHILS % (AUTO) 97 % (42-75); PLATELET COUNT 145 10^3/uL (130-400); RED CELL DISTRIBUTION WIDTH 16.5 % (10.0-14.5); WHITE BLOOD COUNT 6.5 10^3/uL (4.3-11.0)
[2019-07-05 02:58] LABS: ABG PH 7.28 (7.37-7.43); ALLENS TEST YES-POS; INSPIRED O2 28%; VENTILATOR NO
[2019-07-05 03:14] LABS: CALCIUM 7.9 MG/DL (8.5-10.1); CREATININE SERUM 1.34 MG/DL (0.60-1.30); MAGNESIUM 1.9 MG/DL (1.6-2.4); PHOSPHORUS 3.1 MG/DL (2.3-4.7); POTASSIUM 4.3 MMOL/L (3.6-5.0)
[2019-07-05] MEDS: POTASSIUM CL 10MEQ/50ML IVPB 50 ML IV SCH ×5 (03:57→08:18)
[2019-07-05] MEDS: MAGNESIUM 1 GM/100 ML IVPB 100 ML IV SCH (03:57)
[2019-07-05] MEDS: KCL 20 MEQ TAB (K-DUR) PO SCH (03:57)
[2019-07-05] MEDS: inSUlin ASPART (NovoLOG) 1 UNIT/0.01 ML (CHARGE PER UNIT) SC SCH ×4 (06:34→21:31)
[2019-07-05] MEDS: LEVOTHYROXINE 25 MCG (LEVOTHROID) TAB PO SCH (06:34)
[2019-07-05] MEDS: LEVOTHYROXINE 150 MCG (LEVOTHROID) TAB PO SCH (06:34)
[2019-07-05] MEDS: FUROSEMIDE 40 MG/4 ML INJ (LASIX) IVP SCH ×3 (06:34→20:17)
[2019-07-05] MEDS: methylPREDNISolone 40 MG/ML (Solu-MEDROL) VIAL IV SCH ×4 (06:34→23:30)
[2019-07-05] MEDS: RT-BUDESONIDE NEBS 0.5 MG/2ML (PULMICORT) AMP INH SCH ×2 (07:09→19:07)
[2019-07-05] MEDS ORDERED: RT-ALBUTEROL/IPRATROPIUM 3 ML (DUONEB) VIAL INH SCH (07:23)
--- NOTE | 2019-07-05 08:21 | Diagnostic Imaging Report ---
INDICATION: Shortness of breath. Portable chest 4:51 AM FINDINGS: Right upper extremity PICC line tip projects over the SVC. Heart is mildly enlarged. Pulmonary vascularity is normal. Lungs are clear. IMPRESSION: No acute abnormalities in the chest. There appears to be less vascular congestion compared to the previous day's exam. Dictated by: Dictated on workstation # [id number]
[2019-07-05] MEDS: PANTOPRAZOLE 40 MG (PROTONIX) VIAL IV SCH (08:48)
[2019-07-05] MEDS: amLODIPine 5 MG (NORVASC) TAB PO SCH (08:48)
[2019-07-05] MEDS: meTOprolol TARTRATE 25 MG (LOPRESSOR) TABLET PO SCH ×2 (08:48→20:17)
[2019-07-05] MEDS: HALOPERIDOL 5 MG/ML (HALDOL) AMP IV SCH ×2 (08:49→20:17)
--- NOTE | 2019-07-05 10:20 | Progress Note - Hospitalist ---
Subjective HPI/CC On Admission Date Seen by Provider: Jul 05, 2019 Time Seen by Provider: 10:13 Pt is off BiPAP. Reports not feeling well. States she wants to get better but does not want to get out of bed. States she told PT not to come back until Sunday and she's in a "confrontational mood." Discussed the importance of getting out of bed and movement but she again declines. Objective Exam Vital Signs Vital Signs Date Time Temp Pulse Resp B/P (MAP) Pulse Ox O2 Delivery O2 Flow Rate FiO2 07/05/19 08:00 94 Vapotherm 15.00 40 07/05/19 08:00 64 21 114/75 (88) 07/05/19 03:09 36.0 Capillary Refill : Less Than 3 Seconds General Appearance: No Apparent Distress, Chronically ill, Obese Respiratory: Lungs Clear, No Respiratory Distress Cardiovascular: Regular Rate, Rhythm, No Murmur Gastrointestinal: Normal Bowel Sounds, Non Tender, Soft Neurologic/Psychiatric: Alert, Oriented x3 Results/Procedures Lab Laboratory Tests 07/05/19 02:48 Patient resulted labs reviewed. Assessment/Plan Assessment and Plan Assess & Plan/Chief Complaint Acute respiratory failure- Alternates between BiPAP and Vapotherm, Contnue Lasix Acute renal failure on CKD: acute aspect resolved COPD acute exacerbation- Continue steroids, SVNs, pulm consult Thrombocytopenia- resolved Anemia- Stable Hypothyroidism- Cont Synthroid Hyperglycemia- SSI, Continue Levemir Poor prognosis- Remains Full Code Clinical Quality Measures DVT/VTE Risk/Contraindication: Risk Factor Score Per Nursin RFS Level Per Nursing on Admit: 4+=Very High BRANDIE OTT MD Jul 05, 2019 10:20
[2019-07-05] MEDS: morphine INJ 4 MG/ML 1 ML (VIAL/SYRINGE) IVP PRN ×3 (10:52→23:30)
[2019-07-05 17:47] LABS: ABG BASE EXCESS 3.5 MMOL/L (-2.5-2.5); ABG OXYGEN SATURATION 84 % (94-100); ABG PCO2 63 MMHG (35-45); ABG PO2 53 MMHG (79-93); ABG TCO2 31.7 MMOL/L (21.0-31.0)
[2019-07-05 17:48] LABS: ABG PH 7.29 (7.37-7.43)
[2019-07-05 17:49] LABS: ALLENS TEST YES-POS; PATIENT TEMP 36.2; VENTILATOR NO
[2019-07-06] VITALS (25 sets, daily range): BP systolic 89–176; BP diastolic 40–98
[2019-07-06] MEDS: morphine INJ 4 MG/ML 1 ML (VIAL/SYRINGE) IVP PRN (02:25)
[2019-07-06] MEDS: RT-ALBUTEROL/IPRATROPIUM 3 ML (DUONEB) VIAL INH SCH ×6 (02:37→22:06)
[2019-07-06] MEDS: aCETylcysteine 20% (MUCOMYST) 30ML SOLN VIAL INH SCH ×6 (02:41→22:07)
[2019-07-06 03:29] LABS: BASOPHILS % (AUTO) 0 % (0-10); EOSINOPHILS % (AUTO) 0 % (0-10); HEMATOCRIT 33 % (35-52); HEMOGLOBIN 9.2 G/DL (11.5-16.0); LYMPHOCYTES # (AUTO) 0.2 X 10^3 (1.0-4.0); LYMPHOCYTES % (AUTO) 2 % (12-44); MEAN CORPUSCULAR HEMOGLOBIN 28 PG (25-34); MEAN CORPUSCULAR HGB CONC 28 G/DL (32-36); MEAN CORPUSCULAR VOLUME 101 FL (80-99); MEAN PLATELET VOLUME 10.3 FL (7.4-10.4); MONOCYTES # (AUTO) 0.2 X 10^3 (0.0-1.0); MONOCYTES % (AUTO) 2 % (0-12); NEUTROPHILS # (AUTO) 9.1 X 10^3 (1.8-7.8); NEUTROPHILS % (AUTO) 96 % (42-75); PLATELET COUNT 200 10^3/uL (130-400); RED CELL DISTRIBUTION WIDTH 16.6 % (10.0-14.5); WHITE BLOOD COUNT 9.4 10^3/uL (4.3-11.0)
[2019-07-06 03:55] LABS: ABG BASE EXCESS 3.9 MMOL/L (-2.5-2.5); ABG OXYGEN SATURATION 84 % (94-100); ABG PO2 57 MMHG (79-93); ABG TCO2 32.7 MMOL/L (21.0-31.0)
[2019-07-06 03:55] LABS: CALCIUM 8.6 MG/DL (8.5-10.1); CREATININE SERUM 1.35 MG/DL (0.60-1.30); PHOSPHORUS 3.8 MG/DL (2.3-4.7); POTASSIUM 5.1 MMOL/L (3.6-5.0)
[2019-07-06 03:57] LABS: ABG PCO2 71 MMHG (35-45); ABG PH 7.26 (7.37-7.43)
[2019-07-06 03:58] LABS: ALLENS TEST YES-POS; INSPIRED O2 35%; PATIENT TEMP 36.8; VENTILATOR NO
[2019-07-06 04:16] LABS: BAND NEUTROPHILS 4 %; LYMPHOCYTES % (MANUAL) 2 %; MONOCYTES % (MANUAL) 1 %; NEUTROPHILS % (MANUAL) 93 %
[2019-07-06 04:17] LABS: ANISOCYTOSIS MODERATE; POLYCHROMASIA MODERATE
[2019-07-06] MEDS: MAGNESIUM 1 GM/100 ML IVPB 100 ML IV SCH (04:32)
[2019-07-06] MEDS: POTASSIUM CL 10MEQ/50ML IVPB 50 ML IV SCH (04:32)
[2019-07-06] MEDS: KCL 20 MEQ TAB (K-DUR) PO SCH (04:32)
[2019-07-06] MEDS: inSUlin ASPART (NovoLOG) 1 UNIT/0.01 ML (CHARGE PER UNIT) SC SCH ×4 (04:33→23:06)
--- NOTE | 2019-07-06 05:59 | Pulmonary Progress Note ---
Subjective Date Seen by a Provider: Jul 05, 2019 (late note) Time Seen by a Provider: 05:59 Subjective/Events-last exam Pt is currently on BiPAP. Sepsis Event Evaluation Height, Weight, BMI Height: 5'4.00" Weight: 246lbs. 2.0oz. 111.347158zk; 44.00 BMI Method:Stated Exam Exam Vital Signs Date Time Temp Pulse Resp B/P (MAP) Pulse Ox O2 Delivery O2 Flow Rate FiO2 07/06/19 04:00 96 NIV Bilevel 35 07/06/19 02:43 NIV Bilevel 35.00 07/06/19 02:41 61 14 95 35.00 07/06/19 01:00 72 07/06/19 00:00 71 25 110/43 (65) 96 NIV Bilevel 40.00 07/06/19 00:00 96 NIV Bilevel 35 07/05/19 22:00 NIV Bilevel 40.00 07/05/19 21:59 60 14 95 40.00 07/05/19 20:43 NIV Bilevel 28.00 07/05/19 20:00 36.2 07/05/19 20:00 93 NIV Bilevel 28 07/05/19 19:15 99 Vapotherm 15.00 50 07/05/19 19:07 99 Vapotherm 15.00 60 07/05/19 19:00 79 07/05/19 16:10 92 Vapotherm 15.00 40 07/05/19 16:00 75 18 90 Vapotherm 15.00 40.00 07/05/19 14:45 36.6 79 20 134/73 (93) 92 Vapotherm 15.00 40.00 07/05/19 14:38 90 Nasal Cannula 15.00 35 07/05/19 13:00 70 24 Vapotherm 15.00 35.00 07/05/19 12:36 84 07/05/19 12:10 92 Vapotherm 15.00 35 07/05/19 12:00 101 28 91 NIV Bilevel 28.00 07/05/19 11:46 57 18 94 28.00 07/05/19 11:00 137/64 (88) 07/05/19 08:00 94 Vapotherm 15.00 40 07/05/19 08:00 64 21 114/75 (88) 92 NIV Bilevel 28.00 07/05/19 07:14 95 Nasal Cannula 15.00 35 07/05/19 07:00 69 07/05/19 07:00 36.5 07/05/19 06:15 NIV Bilevel 35.00 07/05/19 06:00 81 22 144/56 (85) 94 NIV Bilevel 28.00 I & O 07/06/19 07:00 Intake Total 1460 ml Output Total 2400 ml Balance -940 ml Height & Weight Height: 5'4.00" Weight: 246lbs. 2.0oz. 111.338610jy; 44.00 BMI Method:Stated General Appearance: Chronically ill, Mild Distress, Obese HEENT: Other (Patient on BiPAP) Neck: Normal Inspection, Non Tender Respiratory: Lungs Clear, No Respiratory Distress Cardiovascular: Regular Rate, Rhythm, No Murmur Capillary Refill: Less Than 3 Seconds Gastrointestinal: non tender, soft Extremity: Swelling, Other (stasis dermatitis on bilateral lower extremities) Neurologic/Psychiatric: Alert, Oriented x3 Skin: Normal Color, Warm/Dry Lymphatic: No Adenopathy Results Lab Laboratory Tests 07/05/19 02:48 07/06/19 03:23 Assessment/Plan Assessment/Plan Acute on chronic respiratory failure -Trial pt to Vapotherm currently on BiPAP COPDAE -Solumedrol 40 IV Q 6 -Duoneb Q 4 Acute renal failure - monitor Hypernatremia -- resolved -D/C IVF -Monitor -D5W PNA -Continue Rocpehin, and Azithromycin Hx of Diastolic CHF grade II - -Monitor -Continue lasix Anemia -Check occult stool Thrombocytopenia -Monitor HTN -Add hydralazine ESTRELLITA BAE DO Jul 06, 2019 05:59
[2019-07-06] MEDS ORDERED: FUROSEMIDE 40 MG/4 ML INJ (LASIX) IVP ONE (06:00)
[2019-07-06] MEDS: methylPREDNISolone 40 MG/ML (Solu-MEDROL) VIAL IV SCH ×4 (06:04→23:52)
[2019-07-06] MEDS: LEVOTHYROXINE 25 MCG (LEVOTHROID) TAB PO SCH (06:04)
[2019-07-06] MEDS: LEVOTHYROXINE 150 MCG (LEVOTHROID) TAB PO SCH (06:04)
[2019-07-06] MEDS: FUROSEMIDE 40 MG/4 ML INJ (LASIX) IVP SCH (06:04)
[2019-07-06] MEDS: RT-BUDESONIDE NEBS 0.5 MG/2ML (PULMICORT) AMP INH SCH ×2 (07:02→19:08)
[2019-07-06] MEDS ORDERED: proPOfol 200 MG/20 ML (DIPRIVAN) VIAL IV ONE (07:19)
[2019-07-06] MEDS ORDERED: PROPOFOL DRIP (ICU) 100 ML IV ONE (07:19)
[2019-07-06] MEDS ORDERED: LACTATED RINGERS 1,000 ML IV ONE (07:31)
--- NOTE | 2019-07-06 07:42 | Pulmonary Procedures ---
Pulmonary Procedures Date of Procedure Date of Service: Jul 06, 2019 Reason for Intubation: respiratory failure Time of Intubation: 07:42 Intubation Method: orotracheal Tube Size: 8 Medications: Propofol, Versed Positive End Tide CO2: Yes Breath Sounds after Intubation: bilateral-equal Intubation Complications: no complications Post Intubation Xray: Yes ESTRELLITA PITT DO Jul 06, 2019 07:42
--- NOTE | 2019-07-06 07:55 | Pulmonary Progress Note ---
Subjective Date Seen by a Provider: Jul 06, 2019 Time Seen by a Provider: 07:49 Subjective/Events-last exam Pt's ABG appears worse. Pt states she does want to be a full code. Sepsis Event Evaluation Height, Weight, BMI Height: 5'4.00" Weight: 246lbs. 2.0oz. 111.433714kw; 44.00 BMI Method:Stated Exam Exam Vital Signs Date Time Temp Pulse Resp B/P (MAP) Pulse Ox O2 Delivery O2 Flow Rate FiO2 07/06/19 07:02 67 19 96 45.00 07/06/19 06:24 NIV Bilevel 45.00 07/06/19 04:00 68 19 92/43 (59) 93 NIV Bilevel 35.00 07/06/19 04:00 96 NIV Bilevel 35 07/06/19 02:43 NIV Bilevel 35.00 07/06/19 02:41 61 14 95 35.00 07/06/19 01:00 72 07/06/19 00:00 71 25 110/43 (65) 96 NIV Bilevel 40.00 07/06/19 00:00 96 NIV Bilevel 35 07/05/19 22:00 NIV Bilevel 40.00 07/05/19 21:59 60 14 95 40.00 07/05/19 20:43 NIV Bilevel 28.00 07/05/19 20:00 36.2 07/05/19 20:00 93 NIV Bilevel 28 07/05/19 19:15 99 Vapotherm 15.00 50 07/05/19 19:07 99 Vapotherm 15.00 60 07/05/19 19:00 79 07/05/19 16:10 92 Vapotherm 15.00 40 07/05/19 16:00 75 18 90 Vapotherm 15.00 40.00 07/05/19 14:45 36.6 79 20 134/73 (93) 92 Vapotherm 15.00 40.00 07/05/19 14:38 90 Nasal Cannula 15.00 35 07/05/19 13:00 70 24 Vapotherm 15.00 35.00 07/05/19 12:36 84 07/05/19 12:10 92 Vapotherm 15.00 35 07/05/19 12:00 101 28 91 NIV Bilevel 28.00 07/05/19 11:46 57 18 94 28.00 1/11/20 11:00 137/64 (88) 07/05/19 08:00 94 Vapotherm 15.00 40 07/05/19 08:00 64 21 114/75 (88) 92 NIV Bilevel 28.00 I & O 07/06/19 06:59 Intake Total 1460 ml Output Total 2575 ml Balance -1115 ml Height & Weight Height: 5'4.00" Weight: 246lbs. 2.0oz. 111.566033tv; 44.00 BMI Method:Stated General Appearance: Chronically ill, Moderate Distress, Obese HEENT: Other (Patient on BiPAP) Neck: Normal Inspection, Non Tender Respiratory: No Respiratory Distress, Accessory Muscle Use, Crackles, Decreased Breath Sounds, Respiratory Distress, Rhonci Cardiovascular: Regular Rate, Rhythm, No Murmur Capillary Refill: Less Than 3 Seconds Gastrointestinal: non tender, soft Extremity: Swelling, Other (stasis dermatitis on bilateral lower extremities) Neurologic/Psychiatric: Alert, Oriented x3 Skin: Normal Color, Warm/Dry Lymphatic: No Adenopathy Results Lab Laboratory Tests 07/05/19 02:48 07/06/19 03:23 Assessment/Plan Assessment/Plan Acute on chronic respiratory failure -- worsening -currently on BiPAP -ABG appears worse -Pt still wants to be a full code. Will proceed with intubation COPDAE -Solumedrol 40 IV Q 6 -Duoneb Q 4 Acute renal failure - monitor Hypernatremia -- resolved -D/C IVF -Monitor -D5W PNA -Continue Rocpehin, and Azithromycin Hx of Diastolic CHF grade II - -Monitor -Continue lasix Anemia -Check occult stool Thrombocytopenia -Monitor HTN -Add hydralazine ESTRELLITA BAE DO Jul 06, 2019 07:55
[2019-07-06] MEDS: LACTATED RINGERS 1,000 ML IV SCH ×4 (08:00→18:03)
--- NOTE | 2019-07-06 08:00 | NUR ---
INTUBATION TIME LINE: 0731: DR. PITT IN ROOM. 0732: 4MG VERSED AND 5ML PROPOFOL ADMINISTERED. 0734: PT INTUBED. SIZE 8 TUBE, 27 AT LIP. VENT SETTINGS: TV 450, R 18, PEEP 5, FIO2 50%. 0740: RECEIVED ORDER FOR RESTRAINTS, RESTRAINTS APPLIED. 0741: 16 FR OG TUBE PLACED. 0742: ET TUBE PULLED BACK PER DR. PITT TO 24 AT LIP. 0742: CHEST X-RAY ORDERED.
--- NOTE | 2019-07-06 08:27 | Diagnostic Imaging Report ---
INDICATION: Dyspnea. TECHNIQUE: Single view chest 2:24 AM. CORRELATION STUDY: 07/05/2019 FINDINGS: Heart size is enlarged. Vasculature remains prominent but is slightly less congested. Some increased densities at both lung bases. This may be owing to underlying effusions. Superimposed infiltrate or atelectasis not excluded. Surgical clips project over the level of the mid thoracic inlet. Right-sided central line tip projects over the high right atrium. IMPRESSION: 1. Cardiac enlargement with pulmonary vascular congestion. However, findings do appear to be slightly diminished and less severe. 2. Superimposed areas of atelectasis and/or effusion at the lung bases. Dictated by: Dictated on workstation # [id number]
--- NOTE | 2019-07-06 08:37 | Diagnostic Imaging Report ---
EXAMINATION: Chest radiograph, portable AP view. DATE: 07/06/2019 8:05 AM hours. INDICATION: 68-year-old female, intubation. COMPARISON: July 06, 2019 at 0224 hours. FINDINGS: The endotracheal tube is approximately 11 mm above the monik. The nasogastric tube overlies the stomach. Right-sided venous line overlies the lower SVC. Stable overall appearance of the cardiomediastinal silhouette. There is no identified pneumothorax. There is no identified interval airspace consolidation in the lungs. There are technical limitations of the study relating to patient body habitus and difficulties with exposure. There may be some streaky opacities in the left lung base. IMPRESSION: 1. Technically limited exam. 2. Support lines and tubes as above. 3. Potential streaky opacities in the left lung base which may relate to atelectasis and/or infiltrate. Dictated by: Dictated on workstation # [id number]
--- NOTE | 2019-07-06 08:40 | Progress Note - Hospitalist ---
Subjective HPI/CC On Admission Date Seen by Provider: Jul 06, 2019 Time Seen by Provider: 08:36 Pt is off BiPAP. Reports not feeling well. States she wants to get better but does not want to get out of bed. States she told PT not to come back until Sunday and she's in a "confrontational mood." Discussed the importance of getting out of bed and movement but she again declines. Subjective/Events-last exam Pt was reintubated this morning. No ROS possible. Objective Exam Vital Signs Vital Signs Date Time Temp Pulse Resp B/P (MAP) Pulse Ox O2 Delivery O2 Flow Rate FiO2 07/06/19 08:00 61 17 89/43 (58) 99 Mechanical Ventilator 21.00 07/06/19 07:34 50 07/05/19 20:00 36.2 Capillary Refill : Less Than 3 Seconds General Appearance: Chronically ill, Obese Respiratory: Rhonci, Other (on vent) Cardiovascular: Regular Rate, Rhythm, No Murmur Gastrointestinal: Normal Bowel Sounds, Non Tender, Soft Extremity: Pedal Edema, Swelling Neurologic/Psychiatric: Other (sedated) Results/Procedures Lab Laboratory Tests 07/06/19 03:23 Patient resulted labs reviewed. 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
[2019-07-06] MEDS: meTOprolol TARTRATE 25 MG (LOPRESSOR) TABLET PO SCH ×2 (09:04→20:50)
[2019-07-06] MEDS: amLODIPine 5 MG (NORVASC) TAB PO SCH (09:10)
[2019-07-06] MEDS: HALOPERIDOL 5 MG/ML (HALDOL) AMP IV SCH ×2 (09:10→20:50)
[2019-07-06] MEDS: PROPOFOL DRIP (ICU) 100 ML IV SCH ×5 (09:12→20:50)
[2019-07-06] MEDS ORDERED: MIDAZOLAM 5 MG/5 ML (VERSED) VIAL IJ ONE (09:25)
[2019-07-06 09:38] LABS: ABG BASE EXCESS 4.1 MMOL/L (-2.5-2.5); ABG OXYGEN SATURATION 84 % (94-100); ABG PCO2 44 MMHG (35-45); ABG PH 7.42 (7.37-7.43); ABG TCO2 30.6 MMOL/L (21.0-31.0)
[2019-07-06] MEDS: PANTOPRAZOLE 40 MG (PROTONIX) VIAL IV SCH (09:40)
[2019-07-06 09:41] LABS: ABG PO2 38 MMHG (79-93); ALLENS TEST POSITIVE; INSPIRED O2 21%; PATIENT TEMP 33.8; VENTILATOR YES
[2019-07-06] MEDS ORDERED: NOREPINEPHRINE 4 MG/250 ML NS 250 ML IV ONE (09:43)
[2019-07-06] MEDS: NOREPINEPHRINE 4 MG/250 ML NS 250 ML IV SCH ×3 (09:45→22:50)
[2019-07-06] MEDS ORDERED: ATROPINE INJECTION 1 MG/10 ML SYR (ABBOTT) ONE (09:55)
[2019-07-06] MEDS ORDERED: ATROPINE INJECTION 1 MG/1 ML SDV IJ PRN (10:00)
[2019-07-06] MEDS ORDERED: fentaNYL INJECTION 100 MCG/2 ML AMP ONE (10:03)
[2019-07-06] MEDS: MUPIROCIN 2% OINT 22 GM (BACTROBAN) TUBE NSEACH SCH ×2 (10:12→20:50)
[2019-07-06] MEDS ORDERED: fentaNYL INJECTION 100 MCG/2 ML AMP IVP ONE (10:15)
--- NOTE | 2019-07-06 10:27 | Diagnostic Imaging Report ---
EXAMINATION: Chest radiograph, portable AP view. DATE: 07/06/2019 10:19 AM hours. INDICATION: 68-year-old female, respiratory failure. COMPARISON: July 06, 2019 at 0756 hours. FINDINGS: The endotracheal tube is approximately 3.5 cm above the monik. The nasogastric tube is at the level of the very proximal stomach. Consider advancement. Right-sided venous line overlies the mid SVC. Stable overall appearance of the cardiomediastinal silhouette. There is no identified pneumothorax. There is mild blunting of the left lateral costophrenic angles. IMPRESSION: 1. Support lines and tubes as above. The nasogastric tube is at the level of the very proximal stomach. Consider advancement. 2. Mild blunting of the left lateral costophrenic angle which may relate to a small effusion, atelectasis, and/or infiltrate. Dictated by: Dictated on workstation # [id number]
[2019-07-06] MEDS ORDERED: DOPamine DRIP 250 ML IV PRN (10:30)
[2019-07-06 10:40] LABS: BASOPHILS % (AUTO) 0 % (0-10); EOSINOPHILS % (AUTO) 0 % (0-10); HEMATOCRIT 31 % (35-52); HEMOGLOBIN 8.9 G/DL (11.5-16.0); LYMPHOCYTES # (AUTO) 0.1 X 10^3 (1.0-4.0); LYMPHOCYTES % (AUTO) 2 % (12-44); MEAN CORPUSCULAR HEMOGLOBIN 29 PG (25-34); MEAN CORPUSCULAR HGB CONC 29 G/DL (32-36); MEAN CORPUSCULAR VOLUME 100 FL (80-99); MEAN PLATELET VOLUME 10.5 FL (7.4-10.4); MONOCYTES # (AUTO) 0.2 X 10^3 (0.0-1.0); MONOCYTES % (AUTO) 3 % (0-12); NEUTROPHILS # (AUTO) 6.9 X 10^3 (1.8-7.8); NEUTROPHILS % (AUTO) 96 % (42-75); PLATELET COUNT 150 10^3/uL (130-400); RED CELL DISTRIBUTION WIDTH 16.3 % (10.0-14.5); WHITE BLOOD COUNT 7.2 10^3/uL (4.3-11.0)
[2019-07-06 10:55] LABS: CALCIUM 8.3 MG/DL (8.5-10.1); CREATININE SERUM 1.22 MG/DL (0.60-1.30); MAGNESIUM 1.8 MG/DL (1.6-2.4); PHOSPHORUS 3.3 MG/DL (2.3-4.7); POTASSIUM 4.6 MMOL/L (3.6-5.0)
--- NOTE | 2019-07-06 11:07 | Consultation-Cardiology ---
HPI-Cardiology Cardiology Consultation Date of Consultation 07/06/19 Date of Admission Time Seen by Provider: 11:02 Indication: Bradycardia HPI 68-year-old lady with history of COPD, admitted with respiratory failure and was intubated until July 09, 2019. Was having worsening shortness of breath, deteriorating to the point that she reversed her DO NOT RESUSCITATE request and she was intubated.. Intubation she was noted to have episodes of severe bradycardia required multiple atropine injection. Currently her heart rate is in the 70's sedated and intubated. Unable to provide any history, history was obtained by reviewing her records Home Medications & Allergies Allergies: Coded Allergies: ondansetron (Verified Allergy, Unknown, 05/14/19) risperidone (Verified Allergy, Unknown, 10/16/18) simvastatin (Unverified Adverse Reaction, Unknown, 04/20/14) Home Medication List Reviewed: Yes [id number] Hx Patient Social History Employed/Student: retired Alcohol Use: Occasionally Uses Recreational Drug Use: No Smoking Status: Former Smoker Type Used: Cigarettes Recent Foreign Travel: No Recent Infectious Disease Expo: No Recent Hopitalizations: No Immunizations Up To Date Tetanus Booster (TDap): More than 5yrs Date of Pneumonia Vaccine: Jul 17, 2018 Date of Influenza Vaccine: Mar 10, 2019 Past Medical History Discussed below Family Medical History Significant Family History: No Pertinent Family Hx Family History: Relation not specified for: Alzheimer's disease Arthritis Asthma Completed stroke Dementia Diabetes mellitus Glaucoma Hypertension Kidney disease Myocardial infarction Psychosocial problem Respiratory disorder Severe allergy Thyroid disease Visual disorder Review of Systems-General Review of Systems Constitutional: weakness, other (Sedated and intubated, unable to provide any review of systems) EENTM: no symptoms reported Respiratory: dyspnea on exertion, short of breath Cardiovascular: no symptoms reported Gastrointestinal: no symptoms reported Genitourinary: no symptoms reported Musculoskeletal: No no symptoms reported Skin: no symptoms reported; No rash Reviewed Test Results Reviewed Test Results Lab Laboratory Tests Test 07/05/19 11:56 07/05/19 15:32 07/05/19 17:40 07/05/19 20:45 Range/Units Glucometer 109 125 H 169 H 70-110 MG/DL Blood Gas Puncture Site LT RAD Blood Gas Patient Temperature 36.2 Arterial Blood pH 7.29 *L 7.37-7.43 Arterial Blood Partial Pressure CO2 63 H 35-45 MMHG Arterial Blood Partial Pressure O2 53 L 79-93 MMHG Arterial Blood HCO3 30 H 23-27 MMOL/L Arterial Blood Total CO2 31.7 H 21.0-31.0 MMOL/L Arterial Blood Oxygen Saturation 84 L 94-100 % Arterial Blood Base Excess 3.5 H -2.5-2.5 MMOL/L Clif Test YES-POS Blood Gas Ventilator Setting NO Blood Gas Inspired Oxygen 15L,40% Test 07/06/19 03:23 07/06/19 03:25 07/06/19 03:47 07/06/19 09:35 Range/Units White Blood Count 9.4 4.3-11.0 10^3/uL Red Blood Count 3.32 L 4.35-5.85 10^6/uL Hemoglobin 9.2 L 11.5-16.0 G/DL Hematocrit 33 L 35-52 % Mean Corpuscular Volume 101 H 80-99 FL Mean Corpuscular Hemoglobin 28 25-34 PG Mean Corpuscular Hemoglobin Concent 28 L 32-36 G/DL Red Cell Distribution Width 16.6 H 10.0-14.5 % Platelet Count 200 130-400 10^3/uL Mean Platelet Volume 10.3 7.4-10.4 FL Neutrophils (%) (Auto) 96 H 42-75 % Lymphocytes (%) (Auto) 2 L 12-44 % Monocytes (%) (Auto) 2 0-12 % Eosinophils (%) (Auto) 0 0-10 % Basophils (%) (Auto) 0 0-10 % Neutrophils # (Auto) 9.1 H 1.8-7.8 X 10^3 Lymphocytes # (Auto) 0.2 L 1.0-4.0 X 10^3 Monocytes # (Auto) 0.2 0.0-1.0 X 10^3 Eosinophils # (Auto) 0.0 0.0-0.3 10^3/uL Basophils # (Auto) 0.0 0.0-0.1 10^3/uL Neutrophils % (Manual) 93 % Lymphocytes % (Manual) 2 % Monocytes % (Manual) 1 % Band Neutrophils 4 % Polychromasia MODERATE Anisocytosis MODERATE Macrocytosis MODERATE Sodium Level 142 135-145 MMOL/L Potassium Level 5.1 H 3.6-5.0 MMOL/L Chloride Level 106 98-107 MMOL/L Carbon Dioxide Level 27 21-32 MMOL/L Anion Gap 9 5-14 MMOL/L Blood Urea Nitrogen 50 H 7-18 MG/DL Creatinine 1.35 H 0.60-1.30 MG/DL Estimat Glomerular Filtration Rate 39 BUN/Creatinine Ratio 37 Glucose Level 151 H 70-105 MG/DL Calcium Level 8.6 8.5-10.1 MG/DL Phosphorus Level 3.8 2.3-4.7 MG/DL Magnesium Level 2.0 1.6-2.4 MG/DL Triglycerides Level 48 <150 MG/DL Blood Gas Puncture Site RIGHT RADIAL RIGHT RADIAL Blood Gas Patient Temperature 36.8 33.8 Arterial Blood pH 7.26 *L 7.42 7.37-7.43 Arterial Blood Partial Pressure CO2 71 *H 44 35-45 MMHG Arterial Blood Partial Pressure O2 57 L 38 *L 79-93 MMHG Arterial Blood HCO3 31 H 29 H 23-27 MMOL/L Arterial Blood Total CO2 32.7 H 30.6 21.0-31.0 MMOL/L Arterial Blood Oxygen Saturation 84 L 84 L 94-100 % Arterial Blood Base Excess 3.9 H 4.1 H -2.5-2.5 MMOL/L Clif Test YES-POS POSITIVE Blood Gas Ventilator Setting NO YES Blood Gas Inspired Oxygen 35% 21% Test 07/06/19 10:33 Range/Units White Blood Count 7.2 4.3-11.0 10^3/uL Red Blood Count 3.08 L 4.35-5.85 10^6/uL Hemoglobin 8.9 L 11.5-16.0 G/DL Hematocrit 31 L 35-52 % Mean Corpuscular Volume 100 H 80-99 FL Mean Corpuscular Hemoglobin 29 25-34 PG Mean Corpuscular Hemoglobin Concent 29 L 32-36 G/DL Red Cell Distribution Width 16.3 H 10.0-14.5 % Platelet Count 150 130-400 10^3/uL Mean Platelet Volume 10.5 H 7.4-10.4 FL Neutrophils (%) (Auto) 96 H 42-75 % Lymphocytes (%) (Auto) 2 L 12-44 % Monocytes (%) (Auto) 3 0-12 % Eosinophils (%) (Auto) 0 0-10 % Basophils (%) (Auto) 0 0-10 % Neutrophils # (Auto) 6.9 1.8-7.8 X 10^3 Lymphocytes # (Auto) 0.1 L 1.0-4.0 X 10^3 Monocytes # (Auto) 0.2 0.0-1.0 X 10^3 Eosinophils # (Auto) 0.0 0.0-0.3 10^3/uL Basophils # (Auto) 0.0 0.0-0.1 10^3/uL Sodium Level 138 135-145 MMOL/L Potassium Level 4.6 3.6-5.0 MMOL/L Chloride Level 104 98-107 MMOL/L Carbon Dioxide Level 25 21-32 MMOL/L Anion Gap 9 5-14 MMOL/L Blood Urea Nitrogen 49 H 7-18 MG/DL Creatinine 1.22 0.60-1.30 MG/DL Estimat Glomerular Filtration Rate 44 BUN/Creatinine Ratio 40 Glucose Level 160 H 70-105 MG/DL Calcium Level 8.3 L 8.5-10.1 MG/DL Phosphorus Level 3.3 2.3-4.7 MG/DL Magnesium Level 1.8 1.6-2.4 MG/DL Physical Exam Physical Exam Vital Signs Vital Signs - First Documented 06/30/19 00:00 Temp 37.0 Pulse 101 Resp 19 B/P (MAP) 137/74 (95) Pulse Ox 96 O2 Delivery NIV Bilevel O2 Flow Rate 25.00 FiO2 28 Capillary Refill : Less Than 3 Seconds Height, Weight, BMI Height: 5'4.00" Weight: 246lbs. 2.0oz. 111.622970dr; 44.00 BMI Method:Stated General Appearance: Chronically ill, Obese, Severe Distress, Other (Sedated and intubated) HEENT: Other (Patient on BiPAP) Neck: Normal Inspection, Non Tender Respiratory: Chest Non Tender, Rhonci, Other (on vent) Cardiovascular: Regular Rate, Rhythm, No Murmur Gastrointestinal: Normal Bowel Sounds, Non Tender, Soft Extremity: Pedal Edema, Swelling Neurologic/Psychiatric: Other (Sedated and intubated) Skin: Normal Color, Warm/Dry Lymphatic: No Adenopathy A/P-Cardiology Admission Diagnosis Acute respiratory failure COPD Pneumonia Sinus bradycardia Assessment/Plan Acute on chronic respiratory failure, intubated for the second time during her hospital stay. Managed by Dr. Arrieta Acute exacerbation of COPD, worsening dyspnea and hypoxemia, intubated today. Bradycardia, sinus bradycardia with long sinus pauses probably secondary to severe hypoxemia, no known previous cardiac history and did not have significant bradycardia prior to today. Continue to monitor and monitor ABG closely. Acute renal failure, monitor renal function. Hypertension, currently on sedation. Monitor blood pressure closely Electrolyte imbalance, replace and monitor Clinical Quality Measures DVT/VTE Risk/Contraindication: Risk Factor Score Per Nursin RFS Level Per Nursing on Admit: 4+=Very High JANA TURPIN MD Jul 06, 2019 11:07
[2019-07-06] MEDS: fentaNYL INJECTION 1,250 MCG in NS (IVPB) 250 ML IV SCH (13:32)
[2019-07-06] MEDS: MELATONIN 3 MG TABLET PO SCH (20:51)
[2019-07-07] VITALS (30 sets, daily range): BP systolic 77–145; BP diastolic 35–84
[2019-07-07] MEDS: PROPOFOL DRIP (ICU) 100 ML IV SCH ×7 (00:16→21:07)
[2019-07-07] MEDS: LACTATED RINGERS 1,000 ML IV SCH ×2 (00:34→07:14)
[2019-07-07] MEDS: RT-ALBUTEROL/IPRATROPIUM 3 ML (DUONEB) VIAL INH SCH ×6 (02:06→22:05)
[2019-07-07] MEDS: aCETylcysteine 20% (MUCOMYST) 30ML SOLN VIAL INH SCH ×6 (02:06→22:05)
[2019-07-07 03:42] LABS: BASOPHILS % (AUTO) 0 % (0-10); EOSINOPHILS % (AUTO) 0 % (0-10); HEMATOCRIT 28 % (35-52); HEMOGLOBIN 8.5 G/DL (11.5-16.0); LYMPHOCYTES # (AUTO) 0.1 X 10^3 (1.0-4.0); LYMPHOCYTES % (AUTO) 2 % (12-44); MEAN CORPUSCULAR HEMOGLOBIN 29 PG (25-34); MEAN CORPUSCULAR HGB CONC 31 G/DL (32-36); MEAN CORPUSCULAR VOLUME 96 FL (80-99); MEAN PLATELET VOLUME 10.6 FL (7.4-10.4); MONOCYTES # (AUTO) 0.2 X 10^3 (0.0-1.0); MONOCYTES % (AUTO) 3 % (0-12); NEUTROPHILS # (AUTO) 5.8 X 10^3 (1.8-7.8); NEUTROPHILS % (AUTO) 95 % (42-75); PLATELET COUNT 157 10^3/uL (130-400); RED CELL DISTRIBUTION WIDTH 15.9 % (10.0-14.5); WHITE BLOOD COUNT 6.1 10^3/uL (4.3-11.0)
[2019-07-07 03:43] LABS: ABG BASE EXCESS 6.5 MMOL/L (-2.5-2.5); ABG OXYGEN SATURATION 84 % (94-100); ABG PCO2 45 MMHG (35-45); ABG PH 7.44 (7.37-7.43); ABG PO2 48 MMHG (79-93); ABG TCO2 32.2 MMOL/L (21.0-31.0)
[2019-07-07 03:44] LABS: ALLENS TEST YES-POS; INSPIRED O2 23%; PATIENT TEMP 36.4; VENTILATOR YES
[2019-07-07] MEDS: NOREPINEPHRINE 4 MG/250 ML NS 250 ML IV SCH ×4 (03:56→20:54)
[2019-07-07 03:58] LABS: CALCIUM 8.1 MG/DL (8.5-10.1); CREATININE SERUM 1.14 MG/DL (0.60-1.30); MAGNESIUM 1.7 MG/DL (1.6-2.4); PHOSPHORUS 2.8 MG/DL (2.3-4.7); POTASSIUM 4.5 MMOL/L (3.6-5.0)
[2019-07-07] MEDS: POTASSIUM CL 10MEQ/50ML IVPB 50 ML IV SCH (05:29)
[2019-07-07] MEDS: MAGNESIUM 1 GM/100 ML IVPB 100 ML IV SCH (05:29)
[2019-07-07] MEDS: inSUlin ASPART (NovoLOG) 1 UNIT/0.01 ML (CHARGE PER UNIT) SC SCH ×4 (05:30→23:14)
[2019-07-07] MEDS: KCL 20 MEQ TAB (K-DUR) PO SCH (05:30)
[2019-07-07] MEDS ORDERED: PHARMACY TO DOSE IV SCH (05:45)
--- NOTE | 2019-07-07 05:49 | Pulmonary Progress Note ---
Subjective Time Seen by a Provider: 05:44 Subjective/Events-last exam Sedated on vent Sepsis Event Evaluation Height, Weight, BMI Height: 5'4.00" Weight: 246lbs. 2.0oz. 111.212873dd; 44.00 BMI Method:Stated Exam Exam Vital Signs Date Time Temp Pulse Resp B/P (MAP) Pulse Ox O2 Delivery O2 Flow Rate FiO2 07/07/19 05:00 98 22 108/68 (81) 89 Mechanical Ventilator 25.00 07/07/19 04:22 Mechanical Ventilator 25.00 07/07/19 04:00 Mechanical Ventilator 28 07/07/19 04:00 91 15 112/49 (70) 99 Mechanical Ventilator 28.00 07/07/19 03:56 87 14 120/51 97 Mechanical Ventilator 28.00 07/07/19 03:51 Mechanical Ventilator 28.00 07/07/19 03:39 Mechanical Ventilator 30.00 07/07/19 03:36 36.4 07/07/19 03:00 89 11 100/41 (60) 93 Mechanical Ventilator 23.00 07/07/19 02:45 Mechanical Ventilator 23.00 07/07/19 02:36 Mechanical Ventilator 21.00 07/07/19 02:23 Mechanical Ventilator 25.00 07/07/19 02:19 Mechanical Ventilator 21.00 07/07/19 02:15 Mechanical Ventilator 21.00 07/07/19 02:06 75 18 100 21 07/07/19 02:00 77 52 124/53 (76) 100 Mechanical Ventilator 30.00 07/07/19 01:00 73 14 110/48 (68) 100 Mechanical Ventilator 30.00 07/07/19 00:45 79 07/07/19 00:16 79 18 109/39 100 Mechanical Ventilator 30.00 07/07/19 00:07 35.9 Mechanical Ventilator 30.00 07/07/19 00:00 99 Mechanical Ventilator 30 07/07/19 00:00 85 17 114/82 (93) 99 Mechanical Ventilator 35.00 07/06/19 23:00 79 17 100/40 (60) 100 Mechanical Ventilator 35.00 07/06/19 22:10 Mechanical Ventilator 35.00 07/06/19 22:07 83 18 100 35 07/06/19 22:00 73 17 108/51 (70) 100 Mechanical Ventilator 50.00 07/06/19 21:00 74 25 105/65 (78) 100 Mechanical Ventilator 50.00 07/06/19 20:50 76 18 134/57 100 Mechanical Ventilator 07/06/19 20:15 100 Mechanical Ventilator 50 07/06/19 20:00 70 10 131/55 (80) 100 Mechanical Ventilator 50.00 07/06/19 19:30 35.8 07/06/19 19:08 Mechanical Ventilator 50.00 07/06/19 19:08 96 18 100 80 07/06/19 19:08 57 18 100 50 07/06/19 19:00 Mechanical Ventilator 50.00 07/06/19 19:00 47 14 136/53 (80) 100 Mechanical Ventilator 50.00 07/06/19 19:00 98 07/06/19 18:00 65 14 137/56 (83) 100 Mechanical Ventilator 100.00 07/06/19 17:04 58 07/06/19 17:00 65 6 141/61 (87) 100 Mechanical Ventilator 100.00 07/06/19 16:00 35.8 07/06/19 16:00 92 Mechanical Ventilator 25 07/06/19 16:00 49 8 145/59 (87) 100 Mechanical Ventilator 100.00 07/06/19 15:00 93 9 141/71 (94) 96 Mechanical Ventilator 100.00 07/06/19 14:54 46 18 100 100 07/06/19 14:00 52 5 140/66 (90) 100 Mechanical Ventilator 100.00 07/06/19 13:33 50 07/06/19 13:00 56 145/72 (96) 100 Mechanical Ventilator 100.00 07/06/19 12:29 73 07/06/19 12:00 92 Mechanical Ventilator 25 07/06/19 12:00 35.8 07/06/19 12:00 63 17 138/98 (111) 100 Mechanical Ventilator 100.00 07/06/19 11:00 79 14 144/87 (106) 100 Mechanical Ventilator 100.00 07/06/19 10:58 Mechanical Ventilator 100.00 07/06/19 10:30 43 18 100 100 07/06/19 10:00 62 13 176/98 (124) 88 Mechanical Ventilator 21.00 07/06/19 09:52 84 07/06/19 09:12 68 07/06/19 09:00 58 15 101/44 (63) 89 Mechanical Ventilator 21.00 07/06/19 08:00 92 Mechanical Ventilator 25 07/06/19 08:00 61 17 89/43 (58) 99 Mechanical Ventilator 21.00 07/06/19 07:34 68 18 99 50 07/06/19 07:30 61 12 95/61 (72) 100 NIV Bilevel 45.00 07/06/19 07:02 67 19 96 45.00 07/06/19 07:00 66 07/06/19 06:24 NIV Bilevel 45.00 I & O 07/07/19 07:00 Intake Total 3500 ml Output Total 3625 ml Balance -125 ml Height & Weight Height: 5'4.00" Weight: 246lbs. 2.0oz. 111.739124eo; 44.00 BMI Method:Stated General Appearance: Chronically ill, Obese, Other (Sedated and intubated) HEENT: Other (Patient on BiPAP) Neck: Normal Inspection, Non Tender Respiratory: Chest Non Tender, Decreased Breath Sounds, Other (on vent) Cardiovascular: Regular Rate, Rhythm, No Murmur Capillary Refill: Less Than 3 Seconds Gastrointestinal: non tender, soft Extremity: Pedal Edema, Swelling Neurologic/Psychiatric: Other (Sedated and intubated) Skin: Normal Color, Warm/Dry Lymphatic: No Adenopathy Results Lab Laboratory Tests 07/06/19 03:23 07/06/19 10:33 07/07/19 03:34 Assessment/Plan Assessment/Plan Acute on chronic respiratory failure -- worsening -Continue ventilator care -[facility] -pt will need extensive rehab after extubation -Propofol, fentanyl COPDAE r/o PNA -Start Vanco/zosyn secondary to copious amounts of sputum production. -Sputum culture after intubation pending -Solumedrol 40 IV Q 6 -Duoneb Q 4 Acute renal failure - monitor Anemia -Monitor -Since thrombocytopenia has resolved with restart Lovenox for PPX. PNA -Zosyn and vanco Hx of Diastolic CHF grade II - -Monitor -Continue lasix Anemia -Check occult stool Thrombocytopenia -Monitor HTN -Add hydralazine PRN ESTRELLITA PITT DO Jul 07, 2019 05:49
[2019-07-07] MEDS ORDERED: VANCOMYCIN 2000 MG/NS 500 ML IVPB IV ONE ×2 (06:15)
[2019-07-07] MEDS: methylPREDNISolone 40 MG/ML (Solu-MEDROL) VIAL IV SCH ×4 (06:40→23:14)
[2019-07-07] MEDS: LEVOTHYROXINE 150 MCG (LEVOTHROID) TAB PO SCH (06:40)
[2019-07-07] MEDS: LEVOTHYROXINE 25 MCG (LEVOTHROID) TAB PO SCH (06:40)
[2019-07-07] MEDS: RT-BUDESONIDE NEBS 0.5 MG/2ML (PULMICORT) AMP INH SCH ×2 (07:17→18:40)
--- NOTE | 2019-07-07 07:22 | NUR ---
SCr 1.14, CrCl 59.4, WEIGHT 123.5KG MAINT DOSE 15MG/KG X 123.5 KG ~ 1750 MG Q24H VANCOMYCIN TROUGH DUE 07/09 @ 0600; IF TROUGH >20, HOLD 07/09 0700 DOSE
--- NOTE | 2019-07-07 07:50 | NUR ---
MICRO CALLED REGARDING SPUTUM CX, DR STACK ON FLOOR AND INFORMED OF RESULTS.
[2019-07-07] MEDS: MUPIROCIN 2% OINT 22 GM (BACTROBAN) TUBE NSEACH SCH ×2 (07:54→20:03)
[2019-07-07] MEDS: PANTOPRAZOLE 40 MG (PROTONIX) VIAL IV SCH (07:54)
[2019-07-07] MEDS: PIPERACILLIN/TAZOBACTAM (BULK) 4.5 GM in NS (IVPB) 100 ML IV SCH ×3 (07:54→20:54)
[2019-07-07] MEDS: HALOPERIDOL 5 MG/ML (HALDOL) AMP IV SCH ×2 (07:54→20:04)
[2019-07-07] MEDS: meTOprolol TARTRATE 25 MG (LOPRESSOR) TABLET PO SCH ×2 (07:55→20:05)
[2019-07-07] MEDS: amLODIPine 5 MG (NORVASC) TAB PO SCH (07:55)
--- NOTE | 2019-07-07 07:56 | Diagnostic Imaging Report ---
EXAMINATION: Chest 1 view HISTORY: Dyspnea. COMPARISON: 07/06/2019 FINDINGS: Stable configuration of the endotracheal tube, enteric tube, and right PICC. Stable blunting of the left costophrenic angle with increased opacities in the left lung base. No large pneumothorax. Stable cardiomegaly with mildly prominent central pulmonary vascular congestion. No acute osseous abnormalities. IMPRESSION: 1. Increased opacities in the left lung base with stable small left pleural effusion. 2. Cardiomegaly with prominent central pulmonary vascular congestion. 3. Stable support devices. Dictated by: Dictated on workstation # [id number]
--- NOTE | 2019-07-07 08:12 | Progress Note ---
Subjective Time Seen by a Provider: 08:09 Subjective/Events-last exam Patient put on ventilator this weekend last. Patient resting comfortably. GFR continues to improve. Objective Exam Vital Signs Date Time Temp Pulse Resp B/P (MAP) Pulse Ox O2 Delivery O2 Flow Rate FiO2 07/07/19 07:27 87 18 95 28 07/07/19 07:18 87 18 95 28 07/07/19 07:14 100/40 07/07/19 07:00 85 07/07/19 06:16 Mechanical Ventilator 28.00 07/07/19 06:00 98 13 77/58 (64) 89 Mechanical Ventilator 25.00 07/07/19 05:00 98 22 108/68 (81) 89 Mechanical Ventilator 25.00 07/07/19 04:22 Mechanical Ventilator 25.00 07/07/19 04:00 Mechanical Ventilator 28 07/07/19 04:00 91 15 112/49 (70) 99 Mechanical Ventilator 28.00 07/07/19 03:56 87 14 120/51 97 Mechanical Ventilator 28.00 07/07/19 03:51 Mechanical Ventilator 28.00 07/07/19 03:39 Mechanical Ventilator 30.00 07/07/19 03:36 36.4 07/07/19 03:00 89 11 100/41 (60) 93 Mechanical Ventilator 23.00 07/07/19 02:45 Mechanical Ventilator 23.00 07/07/19 02:36 Mechanical Ventilator 21.00 07/07/19 02:23 Mechanical Ventilator 25.00 07/07/19 02:19 Mechanical Ventilator 21.00 07/07/19 02:15 Mechanical Ventilator 21.00 07/07/19 02:06 75 18 100 21 07/07/19 02:00 77 52 124/53 (76) 100 Mechanical Ventilator 30.00 07/07/19 01:00 73 14 110/48 (68) 100 Mechanical Ventilator 30.00 07/07/19 00:45 79 07/07/19 00:16 79 18 109/39 100 Mechanical Ventilator 30.00 07/07/19 00:07 35.9 Mechanical Ventilator 30.00 07/07/19 00:00 99 Mechanical Ventilator 30 07/07/19 00:00 85 17 114/82 (93) 99 Mechanical Ventilator 35.00 07/06/19 23:00 79 17 100/40 (60) 100 Mechanical Ventilator 35.00 07/06/19 22:10 Mechanical Ventilator 35.00 07/06/19 22:07 83 18 100 35 07/06/19 22:00 73 17 108/51 (70) 100 Mechanical Ventilator 50.00 07/06/19 21:00 74 25 105/65 (78) 100 Mechanical Ventilator 50.00 07/06/19 20:50 76 18 134/57 100 Mechanical Ventilator 07/06/19 20:15 100 Mechanical Ventilator 50 07/06/19 20:00 70 10 131/55 (80) 100 Mechanical Ventilator 50.00 07/06/19 19:30 35.8 07/06/19 19:08 Mechanical Ventilator 50.00 07/06/19 19:08 96 18 100 80 07/06/19 19:08 57 18 100 50 07/06/19 19:00 Mechanical Ventilator 50.00 07/06/19 19:00 47 14 136/53 (80) 100 Mechanical Ventilator 50.00 07/06/19 19:00 98 07/06/19 18:00 65 14 137/56 (83) 100 Mechanical Ventilator 100.00 07/06/19 17:04 58 07/06/19 17:00 65 6 141/61 (87) 100 Mechanical Ventilator 100.00 07/06/19 16:00 35.8 07/06/19 16:00 92 Mechanical Ventilator 25 07/06/19 16:00 49 8 145/59 (87) 100 Mechanical Ventilator 100.00 07/06/19 15:00 93 9 141/71 (94) 96 Mechanical Ventilator 100.00 07/06/19 14:54 46 18 100 100 07/06/19 14:00 52 5 140/66 (90) 100 Mechanical Ventilator 100.00 07/06/19 13:33 50 07/06/19 13:00 56 145/72 (96) 100 Mechanical Ventilator 100.00 07/06/19 12:29 73 07/06/19 12:00 92 Mechanical Ventilator 25 07/06/19 12:00 35.8 07/06/19 12:00 63 17 138/98 (111) 100 Mechanical Ventilator 100.00 07/06/19 11:00 79 14 144/87 (106) 100 Mechanical Ventilator 100.00 07/06/19 10:58 Mechanical Ventilator 100.00 07/06/19 10:30 43 18 100 100 07/06/19 10:00 62 13 176/98 (124) 88 Mechanical Ventilator 21.00 07/06/19 09:52 84 07/06/19 09:12 68 07/06/19 09:00 58 15 101/44 (63) 89 Mechanical Ventilator 21.00 I & O 07/07/19 07:00 Intake Total 3600 ml Output Total 3775 ml Balance -175 ml Capillary Refill : Less Than 3 Seconds General Appearance: No Apparent Distress, WD/WN HEENT: Other (Normal ear and nose) Neck: Normal Inspection, Non Tender Respiratory: No Accessory Muscle Use, No Respiratory Distress, Decreased Breath Sounds Cardiovascular: Regular Rate, Rhythm Gastrointestinal: non tender, soft Results Lab Laboratory Tests 07/06/19 10:33 07/07/19 03:34 Laboratory Tests 07/06/19 09:35: Blood Gas Puncture Site RIGHT RADIAL, Blood Gas Patient Temperature 33.8, Arterial Blood pH 7.42, Arterial Blood Partial Pressure CO2 44, Arterial Blood Partial Pressure O2 38*L, Arterial Blood HCO3 29H, Arterial Blood Total CO2 30.6, Arterial Blood Oxygen Saturation 84L, Arterial Blood Base Excess 4.1H, Clif Test POSITIVE, Blood Gas Ventilator Setting YES, Blood Gas Inspired Oxygen 21% 07/06/19 10:33: White Blood Count 7.2, Red Blood Count 3.08L, Hemoglobin 8.9L, Hematocrit 31L, M анна Corpuscular Volume 100H, Mean Corpuscular Hemoglobin 29, Mean Corpuscular H emoglobin Concent 29L, Red Cell Distribution Width 16.3H, Platelet Count 150, Mean Platelet Volume 10.5H, Neutrophils (%) (Auto) 96H, Lymphocytes (%) (Auto) 2L, Monocytes (%) (Auto) 3, Eosinophils (%) (Auto) 0, Basophils (%) (Auto) 0, Neutrophils # (Auto) 6.9, Lymphocytes # (Auto) 0.1L, Monocytes # (Auto) 0.2, Eosinophils # (Auto) 0.0, Basophils # (Auto) 0.0, Sodium Level 138, Potassium Level 4.6, Chloride Level 104, Carbon Dioxide Level 25, Anion Gap 9, Blood Urea Nitrogen 49H, Creatinine 1.22, Estimat Glomerular Filtration Rate 44, BUN/Creatinine Ratio 40, Glucose Level 160H, Calcium Level 8.3L, Phosphorus Level 3.3, Magnesium Level 1.8 07/06/19 11:40: Glucometer 159H 07/06/19 17:35: Glucometer 264H 07/06/19 22:55: Glucometer 142H 07/07/19 03:25: Blood Gas Puncture Site RIGHT RADIAL, Blood Gas Patient Temperature 36.4, Arterial Blood pH 7.44H, Arterial Blood Partial Pressure CO2 45, Arterial Blood Partial Pressure O2 48L, Arterial Blood HCO3 31H, Arterial Blood Total CO2 32.2H , Arterial Blood Oxygen Saturation 84L, Arterial Blood Base Excess 6.5H, Clif Test YES-POS, Blood Gas Ventilator Setting YES, Blood Gas Inspired Oxygen 23% 07/07/19 03:34: White Blood Count 6.1, Red Blood Count 2.90L, Hemoglobin 8.5L, Hematocrit 28L, Mean Corpuscular Volume 96, Mean Corpuscular Hemoglobin 29, Mean Corpuscular Hemoglobin Concent 31L, Red Cell Distribution Width 15.9H, Platelet Count 157, Mean Platelet Volume 10.6H, Neutrophils (%) (Auto) 95H, Lymphocytes (%) (Auto) 2L, Monocytes (%) (Auto) 3, Eosinophils (%) (Auto) 0, Basophils (%) (Auto) 0, Neutrophils # (Auto) 5.8, Lymphocytes # (Auto) 0.1L, Monocytes # (Auto) 0.2, Eosinophils # (Auto) 0.0, Basophils # (Auto) 0.0, Sodium Level 141, Potassium Level 4.5, Chloride Level 104, Carbon Dioxide Level 26, Anion Gap 11, Blood Urea Nitrogen 46H, Creatinine 1.14, Estimat Glomerular Filtration Rate 47, BUN/Creatinine Ratio 40, Glucose Level 128H, Calcium Level 8.1L, Phosphorus Level 2.8, Magnesium Level 1.7 Microbiology 07/06/19 Gram Stain - Final, Resulted 07/06/19 Sputum Culture - Preliminary, Resulted Pseudomonas aeruginosa 06/26/19 Blood Culture - Final, Complete No growth Assessment/Plan Assessment/Plan Assess & Plan/Chief Complaint Acute and chronic respiratory failure. COPD with acute exacerbation. Acute renal failure. Pneumonia or Thrombocytopenia. Hypertension. Hypoxia. . 07/01/2019. Electrolyte imbalance. Acute and chronic respiratory failure. Thrombocytopenia. COPD with acute exacerbation. Renal insufficiency. Pneumonia. Hypertension. Hypoxia.. . 07/02/2019. Maryam chronic respiratory failure. Thrombocytopenia better COPD with acute exacerbation. Renal insufficiency. Pneumonia. Hypertension. Hypoxia. . 07/03/2019. Acute and chronic respiratory failure. Thrombocytopenia likely 119,000 COPD with Acute Exacerbation. Renal Insufficiency. Pneumonia. Hypoxia. Hypertension Better. . 07/04/2019. Hypertension better. Thrombocytopenia better. Blood gases better. Renal insufficiency. Pneumonia. Hypoxia. Unit chronic respiratory failure. . 07/07/2019. Acute and chronic respiratory failure. COPD with acute exacerbation. Acute renal failure improved. Bradycardia. Pneumonia Clinical Quality Measures Admission Status Admission Dx COPD with acute exacerbation left lower lobe pneumonia renal insufficiency acute short of breath acute respiratory failure thrombocytopenia hypertension hyperlipidemia DVT/VTE Risk/Contraindication: Risk Factor Score Per Nursin RFS Level Per Nursing on Admit: 4+=Very High AURORA STACK DO Jul 07, 2019 08:12
--- NOTE | 2019-07-07 08:34 | Occ Therapy Progress Note ---
Therapy Progress Note Pt. re-intubated and sedated. Will hold skilled occupational therapy at this time and continue to monitor pt. [id number] ADDISON NEWTON OT Jul 07, 2019 08:34
--- NOTE | 2019-07-07 08:37 | Physical Therapy Progress Note ---
Therapy Progress Note Patient reintubated and sedated at this time. PT will require new orders when patient is medically stable and able to actively participate with skilled therapy. MIGDALIA OSORIO PT Jul 07, 2019 08:37
[2019-07-07] MEDS: ENOXAPARIN 40 MG/0.4 ML (LOVENOX) SYR SC SCH ×2 (09:15→20:03)
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
--- NOTE | 2019-07-07 10:34 | Cardiology Progress Note ---
Subjective Date Seen by Provider: Jul 07, 2019 Time Seen by Provider: 10:32 Subjective/Events-last exam Patient is sedated and intubated Review of Systems General: Other (Sedated and intubated) Objective-Cardiology Exam Last Set of Vital Signs Vital Signs 07/07/19 07/07/19 07/07/19 08:38 10:00 10:20 Temp 36.5 Pulse 80 Resp 18 B/P (MAP) 112/47 (68) Pulse Ox 94 O2 Delivery Mechanical Ventilator O2 Flow Rate 24.00 FiO2 28 Capillary Refill : Less Than 3 Seconds I&O Intake and Output 07/07/19 00:00 Intake Total 2700 ml Output Total 3875 ml Balance -1175 ml Intake Oral 300 ml IV Total 2400 ml Output Urine Total 3875 ml General: Other (Sedated and intubated) HEENT: Atraumatic, PERRLA Neck: Supple, No JVD, No Thyromegaly Lungs: Normal Air Movement, Other (Bilateral rhonchi) Heart: Regular Rate, Normal S1, Normal S2, No Murmurs Abdomen: Normal Bowel Sounds, Soft, No Tenderness, No Hepatosplenomegaly, No Masses Extremities: No Clubbing, No Cyanosis, Normal Pulses, Other (Peripheral edema) Skin: Other (Chronic venous stasis changes) Neuro: Other (Sedated and intubated) Psych/Mental Status: Other (Sedated and intubated) Results Lab Laboratory Tests 07/06/19 10:33 07/07/19 03:34 A/P-Cardiology Admission Diagnosis Acute respiratory failure COPD Pneumonia Sinus bradycardia Assessment/Plan Acute on chronic respiratory failure, intubated for the second time during her hospital stay. Managed by Dr. Arrieta Acute exacerbation of COPD, worsening dyspnea and hypoxemia, ventilator depende nt Bradycardia, sinus bradycardia with long sinus pauses probably secondary to severe hypoxemia, no known previous cardiac history, heart rate is better at this time. Continue to monitor Acute renal failure, monitor renal function. Hypertension, currently on sedation. Monitor blood pressure closely Electrolyte imbalance, replace and monitor Clinical Quality Measures DVT/VTE Risk/Contraindication: Risk Factor Score Per Nursin RFS Level Per Nursing on Admit: 4+=Very High JANA TURPIN MD Jul 07, 2019 10:34
--- NOTE | 2019-07-07 11:05 | NUR ---
PALLIATIVE CARE RN has confirmed with the patient and several witnesses that she is okay with going to [facility]. I have notified her cousin and spoken with Dr. Carrera and they both are in agreement. Dr. Arrieta is also okay with the transfer and am confirming his willingness to do doc to doc for this patient.
[2019-07-07] MEDS: fentaNYL INJECTION 1,250 MCG in NS (IVPB) 250 ML IV SCH ×2 (11:39→12:58)
--- NOTE | 2019-07-07 11:58 | NUR ---
Received dietary consult regarding pt's vent status. Per RN, plan of care was to transfer pt to [facility] today. If pt is to remain here, would recommend TF recommendations made on 06/27/[address] dietary note. Will continue to follow and reassess as pt needs and status change. Collin Barrios MS, RD, LD [phone]
--- NOTE | 2019-07-07 12:17 | NUR ---
Received call from patient's nurse stating that the patient was told that there is a bed secured a [facility]..reportedly patient sat up in bed and adamantly shook head no. I confirmed with the patient and ultimately cancelled the transfer for today. Will revisit in the morning her desire to go to [facility] in [place].
--- NOTE | 2019-07-07 12:58 | NUR ---
75ML CADD PUMP FENTANYL WASTED W/ CRYSTAL RN
--- NOTE | 2019-07-07 15:23 | NUR ---
PT AWAKE AND RESTLESS ON VENT, FENTANYL INCREASED TO 75MCG/HR, VERIFIED W/ ADIIT RN. SEE EMAR FOR DETAILS.
--- NOTE | 2019-07-07 15:37 | NUR ---
Fringe Weaver follow up: Pt intubated, able to communicate by hand gestures and nods. Offered compassionate touch and opened pt's blinds per her request.
--- NOTE | 2019-07-07 15:45 | NUR ---
PT AWAKE AND RESTLESS, HR INCREASING TO 120'S. DR PITT INFORMED, NEW ORDERS RECEIVED FOR PRN ATIVAN.
[2019-07-07] MEDS: LORazepam INJ 2 MG/ML (ATIVAN) VIAL IVP PRN (16:09)
[2019-07-07] MEDS: MELATONIN 3 MG TABLET PO SCH (20:05)
[2019-07-08] VITALS (31 sets, daily range): BP systolic 108–184; BP diastolic 48–84
[2019-07-08] MEDS: PROPOFOL DRIP (ICU) 100 ML IV SCH ×7 (00:34→22:04)
[2019-07-08] MEDS: RT-ALBUTEROL/IPRATROPIUM 3 ML (DUONEB) VIAL INH SCH ×5 (01:21→21:43)
[2019-07-08] MEDS: aCETylcysteine 20% (MUCOMYST) 30ML SOLN VIAL INH SCH ×5 (01:21→21:47)
[2019-07-08 03:03] LABS: BASOPHILS % (AUTO) 0 % (0-10); EOSINOPHILS % (AUTO) 0 % (0-10); HEMATOCRIT 26 % (35-52); HEMOGLOBIN 7.8 G/DL (11.5-16.0); LYMPHOCYTES # (AUTO) 0.2 X 10^3 (1.0-4.0); LYMPHOCYTES % (AUTO) 2 % (12-44); MEAN CORPUSCULAR HEMOGLOBIN 29 PG (25-34); MEAN CORPUSCULAR HGB CONC 31 G/DL (32-36); MEAN CORPUSCULAR VOLUME 96 FL (80-99); MEAN PLATELET VOLUME 11.1 FL (7.4-10.4); MONOCYTES # (AUTO) 0.3 X 10^3 (0.0-1.0); MONOCYTES % (AUTO) 3 % (0-12); NEUTROPHILS # (AUTO) 7.8 X 10^3 (1.8-7.8); NEUTROPHILS % (AUTO) 95 % (42-75); PLATELET COUNT 176 10^3/uL (130-400); RED CELL DISTRIBUTION WIDTH 16.9 % (10.0-14.5); WHITE BLOOD COUNT 8.3 10^3/uL (4.3-11.0)
[2019-07-08 03:21] LABS: CREATININE SERUM 1.06 MG/DL (0.60-1.30); POTASSIUM 4.5 MMOL/L (3.6-5.0)
[2019-07-08 03:22] LABS: CALCIUM 7.7 MG/DL (8.5-10.1); MAGNESIUM 1.6 MG/DL (1.6-2.4); PHOSPHORUS 2.7 MG/DL (2.3-4.7)
[2019-07-08 03:27] LABS: ABG BASE EXCESS 6.2 MMOL/L (-2.5-2.5); ABG OXYGEN SATURATION 79 % (94-100); ABG PCO2 43 MMHG (35-45); ABG PH 7.46 (7.37-7.43); ABG PO2 45 MMHG (79-93); ABG TCO2 31.5 MMOL/L (21.0-31.0); ALLENS TEST ART LINE
[2019-07-08 03:28] LABS: INSPIRED O2 28%; PATIENT TEMP 36.6; VENTILATOR YES
[2019-07-08] MEDS: NOREPINEPHRINE 4 MG/250 ML NS 250 ML IV SCH (03:59)
[2019-07-08] MEDS: MAGNESIUM 1 GM/100 ML IVPB 100 ML IV SCH ×3 (04:00→05:24)
[2019-07-08] MEDS: POTASSIUM CL 10MEQ/50ML IVPB 50 ML IV SCH (04:00)
[2019-07-08] MEDS: inSUlin ASPART (NovoLOG) 1 UNIT/0.01 ML (CHARGE PER UNIT) SC SCH ×3 (04:01→17:56)
[2019-07-08] MEDS: KCL 20 MEQ TAB (K-DUR) PO SCH (04:01)
[2019-07-08] MEDS: PIPERACILLIN/TAZOBACTAM (BULK) 4.5 GM in NS (IVPB) 100 ML IV SCH ×3 (04:25→20:47)
[2019-07-08] MEDS: LEVOTHYROXINE 150 MCG (LEVOTHROID) TAB PO SCH (05:17)
[2019-07-08] MEDS: methylPREDNISolone 40 MG/ML (Solu-MEDROL) VIAL IV SCH ×3 (05:17→17:56)
[2019-07-08] MEDS: LEVOTHYROXINE 25 MCG (LEVOTHROID) TAB PO SCH (05:17)
--- NOTE | 2019-07-08 05:42 | Pulmonary Progress Note ---
Subjective Time Seen by a Provider: 05:39 Subjective/Events-last exam PT is sedated on vent. Sepsis Event Evaluation Height, Weight, BMI Height: 5'4.00" Weight: 246lbs. 2.0oz. 111.977817ht; 44.00 BMI Method:Stated Exam Exam Vital Signs Date Time Temp Pulse Resp B/P (MAP) Pulse Ox O2 Delivery O2 Flow Rate FiO2 07/08/19 05:00 101 18 136/62 (86) 90 Mechanical Ventilator 28.00 07/08/19 04:00 88 Mechanical Ventilator 28 07/08/19 04:00 112 25 144/67 (92) 88 Mechanical Ventilator 28.00 07/08/19 03:28 Mechanical Ventilator 07/08/19 03:00 89 18 112/50 (70) 90 Mechanical Ventilator 28.00 07/08/19 02:00 96 17 115/52 (73) 90 Mechanical Ventilator 28.00 07/08/19 01:21 96 18 94 28 07/08/19 01:00 97 17 110/48 (68) 90 Mechanical Ventilator 28.00 07/08/19 00:45 95 07/08/19 00:34 Mechanical Ventilator 07/08/19 00:00 89 17 108/51 (70) 91 Mechanical Ventilator 28.00 07/08/19 00:00 36.1 07/08/19 00:00 90 Mechanical Ventilator 28 07/07/19 23:00 98 18 89 Mechanical Ventilator 28.00 07/07/19 22:06 98 18 94 28 07/07/19 22:00 96 17 116/50 (72) 96 Mechanical Ventilator 28.00 07/07/19 21:07 37.28980 107 11 134/84 91 Mechanical Ventilator 28.00 07/07/19 21:00 104 14 134/84 (101) 96 Mechanical Ventilator 28.00 07/07/19 20:00 92 Mechanical Ventilator 28 07/07/19 20:00 36.6 07/07/19 20:00 95 17 117/50 (72) 95 Mechanical Ventilator 28.00 07/07/19 19:00 100 17 110/50 (70) 93 Mechanical Ventilator 28.00 07/07/19 18:45 98 07/07/19 18:41 98 18 94 28 07/07/19 18:00 103 17 114/49 (70) 95 Mechanical Ventilator 28.00 07/07/19 17:32 109/57 07/07/19 17:00 105 18 114/52 (72) 94 Mechanical Ventilator 28.00 07/07/19 16:01 99 Mechanical Ventilator 28 07/07/19 16:00 36.6 07/07/19 16:00 121 23 116/52 (73) 90 Mechanical Ventilator 28.00 07/07/19 15:00 130 17 145/69 (94) 86 Mechanical Ventilator 28.00 07/07/19 14:23 106 18 91 28 07/07/19 14:00 111 18 105/51 (69) 91 Mechanical Ventilator 28.00 07/07/19 13:59 107/49 07/07/19 13:00 112 07/07/19 13:00 112 18 107/48 (67) 95 Mechanical Ventilator 28.00 07/07/19 12:00 36.0 07/07/19 12:00 112 17 109/69 (82) 91 Mechanical Ventilator 28.00 07/07/19 11:34 Mechanical Ventilator 28.00 07/07/19 11:31 99 Mechanical Ventilator 28 07/07/19 11:00 85 17 105/42 (63) 94 Mechanical Ventilator 24.00 07/07/19 10:47 114/59 07/07/19 10:20 Mechanical Ventilator 24.00 07/07/19 10:20 80 18 94 28 07/07/19 10:00 76 18 112/47 (68) 100 Mechanical Ventilator 28.00 07/07/19 09:00 84 23 113/52 (72) 100 Mechanical Ventilator 28.00 07/07/19 08:38 36.5 07/07/19 08:00 99 Mechanical Ventilator 28 07/07/19 08:00 94 14 99/35 (56) 98 Mechanical Ventilator 28.00 07/07/19 07:27 87 18 95 28 07/07/19 07:18 87 18 95 28 07/07/19 07:14 100/40 07/07/19 07:00 85 17 100/40 (60) 100 Mechanical Ventilator 28.00 07/07/19 07:00 85 07/07/19 06:16 Mechanical Ventilator 28.00 07/07/19 06:00 98 13 77/58 (64) 89 Mechanical Ventilator 25.00 I & O 07/08/19 07:00 Intake Total 2260 ml Output Total 1325 ml Balance 935 ml Height & Weight Height: 5'4.00" Weight: 246lbs. 2.0oz. 111.430136rv; 44.00 BMI Method:Stated General Appearance: Chronically ill, Obese, Other (Sedated and intubated) HEENT: Other (Patient on BiPAP) Neck: Normal Inspection, Non Tender Respiratory: Chest Non Tender, Decreased Breath Sounds, Other (on vent) Cardiovascular: Regular Rate, Rhythm, No Murmur Capillary Refill: Less Than 3 Seconds Gastrointestinal: non tender, soft Extremity: Pedal Edema, Swelling Neurologic/Psychiatric: Other (Sedated and intubated) Skin: Normal Color, Warm/Dry Lymphatic: No Adenopathy Results Lab Laboratory Tests 07/06/19 10:33 07/07/19 03:34 07/08/19 02:54 Assessment/Plan Assessment/Plan Acute on chronic respiratory failure -- worsening -Continue ventilator care -Propofol, fentanyl PNA with pseudomonus -Continue Levaquin and vanco -Await for final cultures and sensitivities -MRSA screen is positive COPDAE -Solumedrol 40 IV Q 6 -Duoneb Q 4 Acute renal failure - monitor Anemia -Monitor -Since thrombocytopenia has resolved with restart Lovenox for PPX. PNA -Zosyn and vanco Hx of Diastolic CHF grade II - -Monitor -Continue lasix Anemia -Check occult stool Thrombocytopenia -Monitor HTN -Add hydralazine PRN ESTRELLITA PITT DO Jul 08, 2019 05:42
[2019-07-08] MEDS ORDERED: VANCOMYCIN 1,750 MG/NS 500 ML IVPB IV SCH ×2 (07:00)
[2019-07-08] MEDS: LACTATED RINGERS 1,000 ML IV SCH (07:33)
[2019-07-08] MEDS: ENOXAPARIN 40 MG/0.4 ML (LOVENOX) SYR SC SCH ×2 (07:34→20:46)
[2019-07-08] MEDS: HALOPERIDOL 5 MG/ML (HALDOL) AMP IV SCH ×2 (07:35→20:47)
[2019-07-08] MEDS: PANTOPRAZOLE 40 MG (PROTONIX) VIAL IV SCH (07:35)
[2019-07-08] MEDS: MUPIROCIN 2% OINT 22 GM (BACTROBAN) TUBE NSEACH SCH ×2 (07:35→20:46)
[2019-07-08] MEDS: LORazepam INJ 2 MG/ML (ATIVAN) VIAL IVP PRN (07:35)
[2019-07-08] MEDS: amLODIPine 5 MG (NORVASC) TAB PO SCH (07:36)
[2019-07-08] MEDS: meTOprolol TARTRATE 25 MG (LOPRESSOR) TABLET PO SCH ×2 (07:36→20:47)
--- NOTE | 2019-07-08 07:51 | Physical Therapy Progress Note ---
Therapy Progress Note Patient currently sedated and intubated. PT will continue to monitor patient status and resume when medically stable and able to actively participate with skilled therapy. MIGDALIA OSORIO PT Jul 08, 2019 07:51
[2019-07-08] MEDS: fentaNYL INJECTION 1,250 MCG in NS (IVPB) 250 ML IV SCH (07:55)
--- NOTE | 2019-07-08 07:59 | Progress Note ---
Subjective Time Seen by a Provider: 07:56 Subjective/Events-last exam Patient on vent sedated. Triglycerides 1020 Objective Exam Vital Signs Date Time Temp Pulse Resp B/P (MAP) Pulse Ox O2 Delivery O2 Flow Rate FiO2 07/08/19 07:33 140/65 07/08/19 06:00 105 25 134/63 (86) 88 Mechanical Ventilator 28.00 07/08/19 05:00 101 18 136/62 (86) 90 Mechanical Ventilator 28.00 07/08/19 04:00 88 Mechanical Ventilator 28 07/08/19 04:00 112 25 144/67 (92) 88 Mechanical Ventilator 28.00 07/08/19 03:28 Mechanical Ventilator 07/08/19 03:00 89 18 112/50 (70) 90 Mechanical Ventilator 28.00 07/08/19 02:00 96 17 115/52 (73) 90 Mechanical Ventilator 28.00 07/08/19 01:21 96 18 94 28 07/08/19 01:00 97 17 110/48 (68) 90 Mechanical Ventilator 28.00 07/08/19 00:45 95 07/08/19 00:34 Mechanical Ventilator 07/08/19 00:00 89 17 108/51 (70) 91 Mechanical Ventilator 28.00 07/08/19 00:00 36.1 07/08/19 00:00 90 Mechanical Ventilator 28 07/07/19 23:00 98 18 89 Mechanical Ventilator 28.00 07/07/19 22:06 98 18 94 28 07/07/19 22:00 96 17 116/50 (72) 96 Mechanical Ventilator 28.00 07/07/19 21:07 37.89226 107 11 134/84 91 Mechanical Ventilator 28.00 07/07/19 21:00 104 14 134/84 (101) 96 Mechanical Ventilator 28.00 07/07/19 20:00 92 Mechanical Ventilator 28 07/07/19 20:00 36.6 07/07/19 20:00 95 17 117/50 (72) 95 Mechanical Ventilator 28.00 07/07/19 19:00 100 17 110/50 (70) 93 Mechanical Ventilator 28.00 07/07/19 18:45 98 07/07/19 18:41 98 18 94 28 07/07/19 18:00 103 17 114/49 (70) 95 Mechanical Ventilator 28.00 07/07/19 17:32 109/57 07/07/19 17:00 105 18 114/52 (72) 94 Mechanical Ventilator 28.00 07/07/19 16:01 99 Mechanical Ventilator 28 07/07/19 16:00 36.6 07/07/19 16:00 121 23 116/52 (73) 90 Mechanical Ventilator 28.00 07/07/19 15:00 130 17 145/69 (94) 86 Mechanical Ventilator 28.00 07/07/19 14:23 106 18 91 28 07/07/19 14:00 111 18 105/51 (69) 91 Mechanical Ventilator 28.00 07/07/19 13:59 107/49 07/07/19 13:00 112 07/07/19 13:00 112 18 107/48 (67) 95 Mechanical Ventilator 28.00 07/07/19 12:00 36.0 07/07/19 12:00 112 17 109/69 (82) 91 Mechanical Ventilator 28.00 07/07/19 11:34 Mechanical Ventilator 28.00 07/07/19 11:31 99 Mechanical Ventilator 28 07/07/19 11:00 85 17 105/42 (63) 94 Mechanical Ventilator 24.00 07/07/19 10:47 114/59 07/07/19 10:20 Mechanical Ventilator 24.00 07/07/19 10:20 80 18 94 28 07/07/19 10:00 76 18 112/47 (68) 100 Mechanical Ventilator 28.00 07/07/19 09:00 84 23 113/52 (72) 100 Mechanical Ventilator 28.00 07/07/19 08:38 36.5 07/07/19 08:00 99 Mechanical Ventilator 28 07/07/19 08:00 94 14 99/35 (56) 98 Mechanical Ventilator 28.00 I & O 07/08/19 07:00 Intake Total 2880 ml Output Total 1325 ml Balance 1555 ml Capillary Refill : Less Than 3 Seconds General Appearance: No Apparent Distress, WD/WN Neck: Normal Inspection Respiratory: No Accessory Muscle Use, No Respiratory Distress, Decreased Breath Sounds Cardiovascular: Regular Rate, Rhythm, No Murmur Gastrointestinal: non tender, soft Results Lab Laboratory Tests 07/08/19 02:54 Laboratory Tests 07/07/19 11:36: Glucometer 187H 07/07/19 17:32: Glucometer 124H 07/07/19 22:51: Glucometer 127H 07/08/19 02:54: White Blood Count 8.3, Red Blood Count 2.66L, Hemoglobin 7.8L, Hematocrit 26L, Mean Corpuscular Volume 96, Mean Corpuscular Hemoglobin 29, Mean Corpuscular Hemoglobin Concent 31L, Red Cell Distribution Width 16.9H, Platelet Count 176, Mean Platelet Volume 11.1H, Neutrophils (%) (Auto) 95H, Lymphocytes (%) (Auto) 2L, Monocytes (%) (Auto) 3, Eosinophils (%) (Auto) 0, Basophils (%) (Auto) 0, Neutrophils # (Auto) 7.8, Lymphocytes # (Auto) 0.2L, Monocytes # (Auto) 0.3, Eosinophils # (Auto) 0.0, Basophils # (Auto) 0.0, Sodium Level 138, Potassium Level 4.5, Chloride Level 103, Carbon Dioxide Level 24, Anion Gap 11, Blood Urea Nitrogen 42H, Creatinine 1.06, Estimat Glomerular Filtration Rate 51, BUN/Creatinine Ratio 40, Glucose Level 99, Calcium Level 7.7L, Phosphorus Level 2.7, Magnesium Level 1.6, Triglycerides Level 1021H 07/08/19 03:20: Blood Gas Puncture Site LEFT RADIAL, Blood Gas Patient Temperature 36.6, Arterial Blood pH 7.46H, Arterial Blood Partial Pressure CO2 43, Arterial Blood Partial Pressure O2 45L, Arterial Blood HCO3 30H, Arterial Blood Total CO2 31.5H , Arterial Blood Oxygen Saturation 79L, Arterial Blood Base Excess 6.2H, Clif Test ART LINE, Blood Gas Ventilator Setting YES, Blood Gas Inspired Oxygen 28% Microbiology 07/06/19 Gram Stain - Final, Resulted 07/06/19 Sputum Culture - Preliminary, Resulted Pseudomonas aeruginosa 06/26/19 Blood Culture - Final, Complete No growth Assessment/Plan Assessment/Plan Assess & Plan/Chief Complaint Acute and chronic respiratory failure. COPD with acute exacerbation. Acute renal failure. Pneumonia or Thrombocytopenia. Hypertension. Hypoxia. . 07/01/2019. Electrolyte imbalance. Acute and chronic respiratory failure. Thrombocytopenia. COPD with acute exacerbation. Renal insufficiency. Pneumonia. Hypertension. Hypoxia.. . 07/02/2019. Maryam chronic respiratory failure. Thrombocytopenia better COPD with acute exacerbation. Renal insufficiency. Pneumonia. Hypertension. Hypoxia. . 07/03/2019. Acute and chronic respiratory failure. Thrombocytopenia likely 119,000 COPD with Acute Exacerbation. Renal Insufficiency. Pneumonia. Hypoxia. Hypertension Better. . 07/04/2019. Hypertension better. Thrombocytopenia better. Blood gases better. Renal insufficiency. Pneumonia. Hypoxia. Unit chronic respiratory failure. . 07/07/2019. Acute and chronic respiratory failure. COPD with acute exacerbation. Acute renal failure improved. Bradycardia. Pneumonia. . 07/08/2019. Patient on ventilator. Acute and chronic respiratory failure. COPD with acute exacerbation. Acute renal failure. Bradycardia. Pneumonia Clinical Quality Measures Admission Status Admission Dx COPD with acute exacerbation left lower lobe pneumonia renal insufficiency acute short of breath acute respiratory failure thrombocytopenia hypertension hyperlipidemia DVT/VTE Risk/Contraindication: Risk Factor Score Per Nursin RFS Level Per Nursing on Admit: 4+=Very High AURORA STACK DO Jul 08, 2019 07:58
--- NOTE | 2019-07-08 08:12 | Occ Therapy Progress Note ---
Therapy Progress Note Pt. continues on sedation and mechanical ventilation. Will continue to monitor pt. [id number] ADDISON NEWTON OT Jul 08, 2019 08:12
--- NOTE | 2019-07-08 08:18 | Diagnostic Imaging Report ---
CHEST 1 VIEW, AP/PA ONLY Indication: Dyspnea Comparison: 07/07/2019 Findings: Stable ET and enteric tubes. No new pulmonary opacities. Probable left basilar subsegmental atelectasis is similar. No pleural effusion or pneumothorax. Stable right PICC. Stable cardiac silhouette. Impression: 1. No adverse development in the interim. 2. Stable support devices. Dictated by: Dictated on workstation # [id number]
[2019-07-08] MEDS ORDERED: BUMETANIDE 1 MG/4 ML (BUMEX) VIAL IV ONE (09:00)
--- NOTE | 2019-07-08 09:24 | Cardiology Progress Note ---
Subjective Date Seen by Provider: Jul 08, 2019 Time Seen by Provider: 09:23 Subjective/Events-last exam Patient is sedated and intubated Review of Systems General: Other (unable to provide review of systems) Objective-Cardiology Exam Last Set of Vital Signs Vital Signs 07/08/19 07/08/19 07/08/19 07/08/19 07/08/19 06:00 07:00 07:33 08:04 08:29 Temp 36.7 Pulse 87 Resp 25 B/P (MAP) 140/65 Pulse Ox 93 O2 Delivery Mechanical Ventilator O2 Flow Rate 28.00 FiO2 28 Capillary Refill : Less Than 3 Seconds I&O Intake and Output 07/08/19 00:00 Intake Total 3560 ml Output Total 1325 ml Balance 2235 ml Intake Oral 0 ml IV Total 3460 ml Other 100 ml Output Urine Total 1025 ml Gastric Drainage Total 300 ml General: Other (Sedated and intubated) HEENT: Atraumatic, PERRLA Neck: Supple, No JVD, No Thyromegaly Lungs: Normal Air Movement, Other (Bilateral rhonchi) Heart: Regular Rate, Normal S1, Normal S2, No Murmurs Abdomen: Normal Bowel Sounds, Soft, No Tenderness, No Hepatosplenomegaly, No Masses Extremities: No Clubbing, No Cyanosis, Normal Pulses, Other (Peripheral edema) Skin: Other (Chronic venous stasis changes) Neuro: Other (Sedated and intubated) Psych/Mental Status: Other (Sedated and intubated) Results Lab Laboratory Tests 07/08/19 02:54 A/P-Cardiology Admission Diagnosis Acute respiratory failure COPD Pneumonia Sinus bradycardia Assessment/Plan Acute on chronic respiratory failure, intubated for the second time during her hospital stay. Managed by Dr. Arrieta Acute exacerbation of COPD, worsening dyspnea and hypoxemia, ventilator dependent Bradycardia, sinus bradycardia with long sinus pauses probably secondary to severe hypoxemia, no known previous cardiac history, heart rate is better at this time. Continue to monitor Acute renal failure, monitor renal function. Hypertension, currently on sedation. Monitor blood pressure closely Anemia, worsening at this time, managed by primary care team. Clinical Quality Measures DVT/VTE Risk/Contraindication: Risk Factor Score Per Nursin RFS Level Per Nursing on Admit: 4+=Very High JANA TURPIN MD Jul 08, 2019 09:24
[2019-07-08] MEDS: RT-BUDESONIDE NEBS 0.5 MG/2ML (PULMICORT) AMP INH SCH ×2 (09:44→21:47)
--- NOTE | 2019-07-08 15:44 | NUR ---
PALLIATIVE CARE RN working on [facility] referral today. Have sent the required clinical information and they indicate that she would need to be trached before arrival to them. I let Dr. Arrieta know,
[2019-07-08] MEDS: hydrALAZINE (APESOLINE) 20 MG/ML VIAL IV PRN (17:15)
[2019-07-08] MEDS: MELATONIN 3 MG TABLET PO SCH (20:47)
[2019-07-09] VITALS (30 sets, daily range): BP systolic 113–161; BP diastolic 56–82
[2019-07-09] MEDS: methylPREDNISolone 40 MG/ML (Solu-MEDROL) VIAL IV SCH ×4 (00:16→18:43)
[2019-07-09] MEDS: inSUlin ASPART (NovoLOG) 1 UNIT/0.01 ML (CHARGE PER UNIT) SC SCH ×4 (00:19→18:43)
[2019-07-09] MEDS: PROPOFOL DRIP (ICU) 100 ML IV SCH ×6 (01:16→20:34)
[2019-07-09] MEDS: RT-ALBUTEROL/IPRATROPIUM 3 ML (DUONEB) VIAL INH SCH ×7 (01:46→23:25)
[2019-07-09] MEDS: aCETylcysteine 20% (MUCOMYST) 30ML SOLN VIAL INH SCH ×3 (01:46→07:38)
[2019-07-09] MEDS: fentaNYL INJECTION 1,250 MCG in NS (IVPB) 250 ML IV SCH ×2 (02:03→22:05)
[2019-07-09 03:08] LABS: ABG OXYGEN SATURATION 93 % (94-100); ABG PCO2 42 MMHG (35-45); ABG PH 7.44 (7.37-7.43); ABG PO2 64 MMHG (79-93); ABG TCO2 29.4 MMOL/L (21.0-31.0); ALLENS TEST YES-POS; INSPIRED O2 28%; PATIENT TEMP 36.3; VENTILATOR YES
[2019-07-09] MEDS: hydrALAZINE (APESOLINE) 20 MG/ML VIAL IV PRN (03:12)
[2019-07-09 03:18] LABS: BASOPHILS % (AUTO) 0 % (0-10); EOSINOPHILS % (AUTO) 0 % (0-10); HEMATOCRIT 27 % (35-52); HEMOGLOBIN 8.3 G/DL (11.5-16.0); LYMPHOCYTES # (AUTO) 0.2 X 10^3 (1.0-4.0); LYMPHOCYTES % (AUTO) 3 % (12-44); MEAN CORPUSCULAR HEMOGLOBIN 29 PG (25-34); MEAN CORPUSCULAR HGB CONC 31 G/DL (32-36); MEAN CORPUSCULAR VOLUME 95 FL (80-99); MEAN PLATELET VOLUME 11.2 FL (7.4-10.4); MONOCYTES # (AUTO) 0.2 X 10^3 (0.0-1.0); MONOCYTES % (AUTO) 4 % (0-12); NEUTROPHILS # (AUTO) 6.1 X 10^3 (1.8-7.8); NEUTROPHILS % (AUTO) 93 % (42-75); PLATELET COUNT 155 10^3/uL (130-400); RED CELL DISTRIBUTION WIDTH 16.8 % (10.0-14.5); WHITE BLOOD COUNT 6.6 10^3/uL (4.3-11.0)
[2019-07-09 03:40] LABS: CALCIUM 7.5 MG/DL (8.5-10.1); CREATININE SERUM 1.08 MG/DL (0.60-1.30); MAGNESIUM 1.9 MG/DL (1.6-2.4); PHOSPHORUS 3.1 MG/DL (2.3-4.7); POTASSIUM 4.2 MMOL/L (3.6-5.0)
--- NOTE | 2019-07-09 05:28 | Pulmonary Progress Note ---
Subjective Time Seen by a Provider: 05:24 Subjective/Events-last exam Sedated on vent Sepsis Event Evaluation Height, Weight, BMI Height: 5'4.00" Weight: 246lbs. 2.0oz. 111.896286hg; 44.00 BMI Method:Stated Exam Exam Vital Signs Date Time Temp Pulse Resp B/P (MAP) Pulse Ox O2 Delivery O2 Flow Rate FiO2 07/09/19 05:00 67 17 140/60 (86) 94 Mechanical Ventilator 28.00 07/09/19 04:00 81 17 133/63 (86) 94 Mechanical Ventilator 28.00 07/09/19 04:00 Mechanical Ventilator 28 07/09/19 03:00 72 22 161/76 (104) 94 Mechanical Ventilator 28.00 07/09/19 02:00 64 17 150/73 (98) 94 Mechanical Ventilator 28.00 07/09/19 01:46 70 18 95 28 07/09/19 01:16 Mechanical Ventilator 07/09/19 01:00 67 07/09/19 01:00 64 18 141/68 (92) 94 Mechanical Ventilator 28.00 07/09/19 00:38 36.6 07/09/19 00:00 Mechanical Ventilator 28 07/09/19 00:00 65 18 132/59 (83) 94 Mechanical Ventilator 28.00 07/08/19 23:00 68 18 130/63 (85) 93 Mechanical Ventilator 28.00 07/08/19 22:04 Mechanical Ventilator 07/08/19 22:00 75 17 140/66 (90) 93 Mechanical Ventilator 28.00 07/08/19 21:46 77 18 91 28 07/08/19 21:43 81 18 91 28 07/08/19 21:00 90 18 158/63 (94) 91 Mechanical Ventilator 28.00 07/08/19 20:00 Mechanical Ventilator 28 07/08/19 20:00 87 18 184/81 (115) 92 Mechanical Ventilator 28.00 07/08/19 20:00 36.8 07/08/19 19:12 81 18 91 28 07/08/19 19:00 80 07/08/19 19:00 80 17 168/68 (101) 92 Mechanical Ventilator 28.00 07/08/19 18:00 85 17 152/70 (97) 91 Mechanical Ventilator 28.00 07/08/19 17:56 156/65 07/08/19 17:00 77 17 172/75 (107) 92 Mechanical Ventilator 28.00 07/08/19 16:00 76 17 172/69 (103) 90 Mechanical Ventilator 28.00 07/08/19 15:15 91 Mechanical Ventilator 28 07/08/19 15:00 84 17 157/84 (108) 89 Mechanical Ventilator 28.00 07/08/19 14:38 85 18 91 28 07/08/19 14:24 160/71 07/08/19 14:00 72 18 166/74 (104) 93 Mechanical Ventilator 28.00 07/08/19 13:00 72 07/08/19 13:00 72 17 151/60 (90) 93 Mechanical Ventilator 28.00 07/08/19 12:00 77 18 145/57 (86) 93 Mechanical Ventilator 28.00 07/08/19 12:00 36.4 07/08/19 11:53 93 Mechanical Ventilator 28 07/08/19 11:00 74 18 143/58 (86) 92 Mechanical Ventilator 28.00 07/08/19 10:46 146/63 07/08/19 10:00 77 18 137/59 (85) 92 Mechanical Ventilator 28.00 07/08/19 09:53 77 18 93 28 07/08/19 09:45 77 18 93 28 07/08/19 09:00 80 17 140/66 (90) 92 Mechanical Ventilator 28.00 07/08/19 08:29 93 Mechanical Ventilator 28 07/08/19 08:04 36.7 07/08/19 08:00 85 17 140/65 (90) 92 Mechanical Ventilator 28.00 07/08/19 07:33 140/65 07/08/19 07:00 85 17 146/70 (95) 92 Mechanical Ventilator 28.00 07/08/19 07:00 87 07/08/19 06:00 105 25 134/63 (86) 88 Mechanical Ventilator 28.00 I & O 07/09/19 07:00 Intake Total 2212.5 ml Output Total 1900 ml Balance 312.5 ml Height & Weight Height: 5'4.00" Weight: 246lbs. 2.0oz. 111.941379yv; 44.00 BMI Method:Stated General Appearance: No Apparent Distress, WD/WN HEENT: PERRL/EOMI, Normal ENT Inspection, Pharynx Normal Neck: Normal Inspection Respiratory: No Accessory Muscle Use, No Respiratory Distress, Decreased Breath Sounds Cardiovascular: Regular Rate, Rhythm, No Murmur Capillary Refill: Less Than 3 Seconds Gastrointestinal: non tender, soft Extremity: Swelling, Other (stasis dermatitis on bilateral lower extremities) Neurologic/Psychiatric: Alert, Oriented x3 Skin: Normal Color, Warm/Dry Lymphatic: No Adenopathy Results Lab Laboratory Tests 07/08/19 02:54 07/09/19 03:11 Assessment/Plan Assessment/Plan Acute on chronic respiratory failure -- worsening -Continue ventilator care -Decrease VT to 400 and RR -Repeat ABG in 1 hr -Propofol, fentanyl PNA with pseudomonus -- intermediate to Levaquin -Continue Merrem x 14 days total -D/C Vanco -MRSA screen is positive Pulmonary edema -Add bumex 1mg BID COPDAE -Solumedrol 40 IV Q 6 -Duoneb Q 4 Acute renal failure - monitor Anemia -Monitor -Since thrombocytopenia has resolved with restart Lovenox for PPX. PNA -Zosyn and vanco Hx of Diastolic CHF grade II - -Monitor -Continue lasix Anemia -Check occult stool Thrombocytopenia -Monitor HTN -Add hydralazine PRN ESTRELLITA PITT DO Jul 09, 2019 05:27
[2019-07-09] MEDS ORDERED: MEROPENEM 1,000 MG in WATER (STERILE) FOR INJECTION 20 ML IV SCH (05:30)
[2019-07-09] MEDS: POTASSIUM CL 10MEQ/50ML IVPB 50 ML IV SCH (05:37)
[2019-07-09] MEDS: MAGNESIUM 1 GM/100 ML IVPB 100 ML IV SCH (05:37)
[2019-07-09] MEDS: KCL 20 MEQ TAB (K-DUR) PO SCH (05:38)
[2019-07-09] MEDS ORDERED: TROUGH ORDER-PHARMACY XX NR (06:00)
[2019-07-09] MEDS: LEVOTHYROXINE 150 MCG (LEVOTHROID) TAB PO SCH (06:38)
[2019-07-09] MEDS: LEVOTHYROXINE 25 MCG (LEVOTHROID) TAB PO SCH (06:38)
[2019-07-09] MEDS: RT-BUDESONIDE NEBS 0.5 MG/2ML (PULMICORT) AMP INH SCH ×2 (07:36→18:44)
[2019-07-09 08:12] LABS: ABG BASE EXCESS 3.6 MMOL/L (-2.5-2.5); ABG OXYGEN SATURATION 91 % (94-100); ABG PCO2 50 MMHG (35-45); ABG PH 7.37 (7.37-7.43); ABG PO2 63 MMHG (79-93)
[2019-07-09 08:14] LABS: ALLENS TEST POSITIVE; INSPIRED O2 28%; PATIENT TEMP 37; VENTILATOR YES
--- NOTE | 2019-07-09 08:18 | Progress Note ---
Subjective Time Seen by a Provider: 08:16 Subjective/Events-last exam Patient on ventilator. Patient sedated Objective Exam Vital Signs Date Time Temp Pulse Resp B/P (MAP) Pulse Ox O2 Delivery O2 Flow Rate FiO2 07/09/19 08:00 37.0 07/09/19 07:48 72 14 91 28 07/09/19 06:38 Mechanical Ventilator 07/09/19 06:00 69 23 139/64 (89) 94 Mechanical Ventilator 28.00 07/09/19 05:00 67 17 140/60 (86) 94 Mechanical Ventilator 28.00 07/09/19 04:00 81 17 133/63 (86) 94 Mechanical Ventilator 28.00 07/09/19 04:00 Mechanical Ventilator 28 07/09/19 03:00 72 22 161/76 (104) 94 Mechanical Ventilator 28.00 07/09/19 02:00 64 17 150/73 (98) 94 Mechanical Ventilator 28.00 07/09/19 01:46 70 18 95 28 07/09/19 01:16 Mechanical Ventilator 07/09/19 01:00 67 07/09/19 01:00 64 18 141/68 (92) 94 Mechanical Ventilator 28.00 07/09/19 00:38 36.6 07/09/19 00:00 Mechanical Ventilator 28 07/09/19 00:00 65 18 132/59 (83) 94 Mechanical Ventilator 28.00 07/08/19 23:00 68 18 130/63 (85) 93 Mechanical Ventilator 28.00 07/08/19 22:04 Mechanical Ventilator 07/08/19 22:00 75 17 140/66 (90) 93 Mechanical Ventilator 28.00 07/08/19 21:46 77 18 91 28 07/08/19 21:43 81 18 91 28 07/08/19 21:00 90 18 158/63 (94) 91 Mechanical Ventilator 28.00 07/08/19 20:00 Mechanical Ventilator 28 07/08/19 20:00 87 18 184/81 (115) 92 Mechanical Ventilator 28.00 07/08/19 20:00 36.8 07/08/19 19:12 81 18 91 28 07/08/19 19:00 80 07/08/19 19:00 80 17 168/68 (101) 92 Mechanical Ventilator 28.00 07/08/19 18:00 85 17 152/70 (97) 91 Mechanical Ventilator 28.00 07/08/19 17:56 156/65 07/08/19 17:00 77 17 172/75 (107) 92 Mechanical Ventilator 28.00 07/08/19 16:00 76 17 172/69 (103) 90 Mechanical Ventilator 28.00 07/08/19 15:15 91 Mechanical Ventilator 28 07/08/19 15:00 84 17 157/84 (108) 89 Mechanical Ventilator 28.00 07/08/19 14:38 85 18 91 28 07/08/19 14:24 160/71 07/08/19 14:00 72 18 166/74 (104) 93 Mechanical Ventilator 28.00 07/08/19 13:00 72 07/08/19 13:00 72 17 151/60 (90) 93 Mechanical Ventilator 28.00 07/08/19 12:00 77 18 145/57 (86) 93 Mechanical Ventilator 28.00 07/08/19 12:00 36.4 07/08/19 11:53 93 Mechanical Ventilator 28 07/08/19 11:00 74 18 143/58 (86) 92 Mechanical Ventilator 28.00 07/08/19 10:46 146/63 07/08/19 10:00 77 18 137/59 (85) 92 Mechanical Ventilator 28.00 07/08/19 09:53 77 18 93 28 07/08/19 09:45 77 18 93 28 07/08/19 09:00 80 17 140/66 (90) 92 Mechanical Ventilator 28.00 07/08/19 08:29 93 Mechanical Ventilator 28 I & O 07/09/19 07:00 Intake Total 2742.5 ml Output Total 2075 ml Balance 667.5 ml Capillary Refill : Less Than 3 Seconds General Appearance: No Apparent Distress Neck: Normal Inspection Respiratory: No Accessory Muscle Use, No Respiratory Distress, Decreased Breath Sounds Cardiovascular: Regular Rate, Rhythm, No Murmur Gastrointestinal: non tender, soft Results Lab Laboratory Tests 07/09/19 03:11 Laboratory Tests 07/08/19 11:40: Glucometer 170H 07/08/19 17:39: Glucometer 123H 07/08/19 22:52: Glucometer 115H 07/09/19 03:03: Blood Gas Puncture Site RIGHT RADIAL, Blood Gas Patient Temperature 36.3, Arterial Blood pH 7.44H, Arterial Blood Partial Pressure CO2 42, Arterial Blood Partial Pressure O2 64L, Arterial Blood HCO3 28H, Arterial Blood Total CO2 29.4, Arterial Blood Oxygen Saturation 93L, Arterial Blood Base Excess 4.0H, Clif Test YES-POS, Blood Gas Ventilator Setting YES, Blood Gas Inspired Oxygen 28% 07/09/19 03:11: White Blood Count 6.6, Red Blood Count 2.83L, Hemoglobin 8.3L, Hematocrit 27L, Mean Corpuscular Volume 95, Mean Corpuscular Hemoglobin 29, Mean Corpuscular Hemoglobin Concent 31L, Red Cell Distribution Width 16.8H, Platelet Count 155, Mean Platelet Volume 11.2H, Neutrophils (%) (Auto) 93H, Lymphocytes (%) (Auto) 3L, Monocytes (%) (Auto) 4, Eosinophils (%) (Auto) 0, Basophils (%) (Auto) 0, Neutrophils # (Auto) 6.1, Lymphocytes # (Auto) 0.2L, Monocytes # (Auto) 0.2, Eosinophils # (Auto) 0.0, Basophils # (Auto) 0.0, Sodium Level 137, Potassium Level 4.2, Chloride Level 102, Carbon Dioxide Level 22, Anion Gap 13, Blood Urea Nitrogen 38H, Creatinine 1.08, Estimat Glomerular Filtration Rate 50, BUN/Creatinine Ratio 35, Glucose Level 92, Calcium Level 7.5L, Phosphorus Level 3.1, Magnesium Level 1.9, B-Type Natriuretic Peptide 282.4H 07/09/19 08:00: Blood Gas Puncture Site RIGHT RADIAL, Blood Gas Patient Temperature 37, Arterial Blood pH 7.37, Arterial Blood Partial Pressure CO2 50H, Arterial Blood Partial Pressure O2 63L, Arterial Blood HCO3 29H, Arterial Blood Total CO2 30.0, Arterial Blood Oxygen Saturation 91L, Arterial Blood Base Excess 3.6H, Clif Test POSITIVE, Blood Gas Ventilator Setting YES, Blood Gas Inspired Oxygen 28% Microbiology 07/06/19 Gram Stain - Final, Complete 07/06/19 Sputum Culture - Final, Complete Pseudomonas aeruginosa 06/26/19 Blood Culture - Final, Complete No growth Assessment/Plan Assessment/Plan Assess & Plan/Chief Complaint Acute and chronic respiratory failure. COPD with acute exacerbation. Acute renal failure. Pneumonia or Thrombocytopenia. Hypertension. Hypoxia. . 07/01/2019. Electrolyte imbalance. Acute and chronic respiratory failure. Thrombocytopenia. COPD with acute exacerbation. Renal insufficiency. Pneumonia. Hypertension. Hypoxia.. . 07/02/2019. Maryam chronic respiratory failure. Thrombocytopenia better COPD with acute exacerbation. Renal insufficiency. Pneumonia. Hypertension. Hypoxia. . 07/03/2019. Acute and chronic respiratory failure. Thrombocytopenia likely 119,000 COPD with Acute Exacerbation. Renal Insufficiency. Pneumonia. Hypoxia. Hypertension Better. . 07/04/2019. Hypertension better. Thrombocytopenia better. Blood gases better. Renal insufficiency. Pneumonia. Hypoxia. Unit chronic respiratory failure. . 07/07/2019. Acute and chronic respiratory failure. COPD with acute exacerbation. Acute renal failure improved. Bradycardia. Pneumonia. . 07/08/2019. Patient on ventilator. Acute and chronic respiratory failure. COPD with acute exacerbation. Acute renal failure. Bradycardia. Pneumonia. . 07/09/2019 area Unit chronic respiratory failure.. COPD with acute exacerbation. Acute renal failure. Bradycardia. Pneumonia. Pseudomonas noted. Clinical Quality Measures Admission Status Admission Dx COPD with acute exacerbation left lower lobe pneumonia renal insufficiency acute short of breath acute respiratory failure thrombocytopenia hypertension hyperlipidemia DVT/VTE Risk/Contraindication: Risk Factor Score Per Nursin RFS Level Per Nursing on Admit: 4+=Very High AURORA STACK DO Jul 09, 2019 08:18
--- NOTE | 2019-07-09 08:20 | Diagnostic Imaging Report ---
INDICATION: Respiratory failure Frontal chest obtained at 0343 a.m. There is cardiomegaly with central vascular congestion and interstitial edema and patchy bilateral infiltrates. There is no pneumothorax or pleural fluid. ET tube tip overlies mid trachea. NG tube tip is below the film. Right-sided PICC line is unchanged. IMPRESSION: Cardiomegaly and central vascular congestion with edema and some patchy bilateral infiltrates. The infiltrates appear mildly worsened compared to yesterday. There is no pneumothorax or pleural fluid. Dictated by: Dictated on workstation # [id number]
--- NOTE | 2019-07-09 08:24 | Occ Therapy Progress Note ---
Therapy Progress Note Pt. continues on sedation and ventilator support. Will continue to monitor pt. [id number] ADDISON NEWTON OT Jul 09, 2019 08:24
--- NOTE | 2019-07-09 09:06 | Physical Therapy Progress Note ---
Therapy Progress Note Patient currently intubated and sedated. Will check back tomorrow. TESS EDMONDS PT Jul 09, 2019 09:06
[2019-07-09] MEDS: amLODIPine 5 MG (NORVASC) TAB PO SCH (09:41)
[2019-07-09] MEDS: ENOXAPARIN 40 MG/0.4 ML (LOVENOX) SYR SC SCH ×2 (09:41→20:33)
[2019-07-09] MEDS: HALOPERIDOL 5 MG/ML (HALDOL) AMP IV SCH ×2 (09:42→20:33)
[2019-07-09] MEDS: MUPIROCIN 2% OINT 22 GM (BACTROBAN) TUBE NSEACH SCH ×2 (09:42→20:33)
[2019-07-09] MEDS: PANTOPRAZOLE 40 MG (PROTONIX) VIAL IV SCH (09:42)
[2019-07-09] MEDS: meTOprolol TARTRATE 25 MG (LOPRESSOR) TABLET PO SCH ×2 (09:42→20:33)
[2019-07-09] MEDS: BUMETANIDE 1 MG/4 ML (BUMEX) VIAL IV SCH ×2 (09:42→20:33)
[2019-07-09] MEDS: LACTATED RINGERS 1,000 ML IV SCH ×2 (09:43→15:20)
--- NOTE | 2019-07-09 10:49 | Cardiology Progress Note ---
Subjective Date Seen by Provider: Jul 09, 2019 Time Seen by Provider: 10:48 Subjective/Events-last exam Patient sedated and intubated. No apparent distress. Review of Systems General: Other (Intubated and sedated) Objective-Cardiology Exam Last Set of Vital Signs Vital Signs 07/09/19 07/09/19 07/09/19 08:00 09:00 10:02 Temp 37.0 Pulse 70 Resp 14 B/P (MAP) 139/82 (101) Pulse Ox 91 O2 Delivery Mechanical Ventilator O2 Flow Rate 28.00 FiO2 28 Capillary Refill : Less Than 3 Seconds I&O Intake and Output 07/09/19 00:00 Intake Total 2512.5 ml Output Total 2150 ml Balance 362.5 ml Intake Oral 0 ml IV Total 2312.5 ml Other 200 ml Output Urine Total 1850 ml Gastric Drainage Total 300 ml General: Other (Sedated and intubated) HEENT: Atraumatic, PERRLA Neck: Supple, No JVD, No Thyromegaly Lungs: Normal Air Movement, Other (Bilateral rhonchi) Heart: Regular Rate, Normal S1, Normal S2, No Murmurs Abdomen: Normal Bowel Sounds, Soft, No Tenderness, No Hepatosplenomegaly, No Masses Extremities: No Clubbing, No Cyanosis, Normal Pulses, Other (Peripheral edema) Skin: Other (Chronic venous stasis changes) Neuro: Other (Sedated and intubated) Psych/Mental Status: Other (Sedated and intubated) Results Lab Laboratory Tests 07/09/19 03:11 A/P-Cardiology Admission Diagnosis Acute respiratory failure COPD Pneumonia Sinus bradycardia Assessment/Plan Acute on chronic respiratory failure, intubated for the second time during her hospital stay. Managed by Dr. Arrieta Acute exacerbation of COPD, worsening dyspnea and hypoxemia, ventilator dependent Bradycardia, sinus bradycardia with long sinus pauses probably secondary to severe hypoxemia, no known previous cardiac history, heart rate is better at this time. Continue to monitor Acute renal failure, improved, continue to monitor renal function. Hypertension, currently on sedation. Monitor blood pressure closely Anemia, continue to monitor H/H, managed by primary care team. Patient was seen and evaluated with Kady, examination performed, management plan was discussed, agree with the current scribed note, I made few changes to the note using Italic font Patient is sedated and intubated Heart rate is better Managed by Dr. Arrieta No further episodes of bradycardia were noted. Clinical Quality Measures DVT/VTE Risk/Contraindication: Risk Factor Score Per Nursin RFS Level Per Nursing on Admit: 4+=Very High KADY ONTIVEROS Jul 09, 2019 10:49 JANA TURPIN MD Jul 09, 2019 11:02
--- NOTE | 2019-07-09 15:03 | NUR ---
"Discussed with SHAHRIAR Francisco plan of care and enteral nutrition. Est. kcal needs: 1077-2629 kcal | 15-18 kcal/kg Est. Pro needs: 59-83 g Pro | 0.5-0.8 g Pro/kg (for renal failure) Would recommend the following TF: Pulmocare 1.5 at goal rate of 50ml/hr. Begin at 10ml/hr and increase by 10ml q6h as tolerated. Monitor gastric residuals for tolerance. At goal rate, provides 1800 kcal (15 kcal/kg); 75 g Pro (0.7 g Pro/kg); and 916 ml free water. Flush with 75 ml H2O q4h for hydration status. With flushes, provides 1366 ml free water. Will continue to follow and reassess as pt needs and status change. Collin Barrios MS, RD, LD [phone]"
[2019-07-09] MEDS: MEROPENEM 500 MG/SWFI 10 ML IV PUSH IV SCH ×4 (16:51→22:05)
[2019-07-09] MEDS: MELATONIN 3 MG TABLET PO SCH (20:33)
[2019-07-10] VITALS (28 sets, daily range): BP systolic 104–154; BP diastolic 50–97
[2019-07-10] MEDS: inSUlin ASPART (NovoLOG) 1 UNIT/0.01 ML (CHARGE PER UNIT) SC SCH ×4 (00:08→18:19)
[2019-07-10] MEDS: RT-ALBUTEROL/IPRATROPIUM 3 ML (DUONEB) VIAL INH SCH ×5 (03:10→18:56)
[2019-07-10] MEDS: PROPOFOL DRIP (ICU) 100 ML IV SCH ×3 (03:12→06:34)
[2019-07-10 03:42] LABS: BASOPHILS % (AUTO) 0 % (0-10); EOSINOPHILS % (AUTO) 0 % (0-10); HEMATOCRIT 30 % (35-52); HEMOGLOBIN 8.9 G/DL (11.5-16.0); LYMPHOCYTES # (AUTO) 0.3 X 10^3 (1.0-4.0); LYMPHOCYTES % (AUTO) 5 % (12-44); MEAN CORPUSCULAR HEMOGLOBIN 28 PG (25-34); MEAN CORPUSCULAR HGB CONC 30 G/DL (32-36); MEAN CORPUSCULAR VOLUME 95 FL (80-99); MEAN PLATELET VOLUME 10.3 FL (7.4-10.4); MONOCYTES # (AUTO) 0.2 X 10^3 (0.0-1.0); MONOCYTES % (AUTO) 3 % (0-12); NEUTROPHILS # (AUTO) 5.4 X 10^3 (1.8-7.8); NEUTROPHILS % (AUTO) 92 % (42-75); PLATELET COUNT 143 10^3/uL (130-400); RED CELL DISTRIBUTION WIDTH 16.7 % (10.0-14.5); WHITE BLOOD COUNT 5.8 10^3/uL (4.3-11.0)
[2019-07-10 03:43] LABS: ABG BASE EXCESS 3.3 MMOL/L (-2.5-2.5); ABG OXYGEN SATURATION 91 % (94-100); ABG PCO2 49 MMHG (35-45); ABG PH 7.37 (7.37-7.43); ABG PO2 63 MMHG (79-93); ABG TCO2 29.9 MMOL/L (21.0-31.0)
[2019-07-10 03:47] LABS: ALLENS TEST YES-POS; INSPIRED O2 28%; PATIENT TEMP 36.2; VENTILATOR YES
[2019-07-10 04:12] LABS: CALCIUM 7.8 MG/DL (8.5-10.1); CREATININE SERUM 1.06 MG/DL (0.60-1.30); MAGNESIUM 1.9 MG/DL (1.6-2.4); PHOSPHORUS 3.9 MG/DL (2.3-4.7); POTASSIUM 4.1 MMOL/L (3.6-5.0)
--- NOTE | 2019-07-10 04:54 | Pulmonary Progress Note ---
Subjective Date Seen by a Provider: Jul 10, 2019 Time Seen by a Provider: 04:54 Subjective/Events-last exam Sedated on vent. Sepsis Event Evaluation Height, Weight, BMI Height: 5'4.00" Weight: 246lbs. 2.0oz. 111.649285qj; 44.00 BMI Method:Stated Exam Exam Vital Signs Date Time Temp Pulse Resp B/P (MAP) Pulse Ox O2 Delivery O2 Flow Rate FiO2 07/10/19 04:09 36.2 07/10/19 04:00 Mechanical Ventilator 28 07/10/19 04:00 79 14 121/57 (78) 93 Mechanical Ventilator 28.00 07/10/19 03:12 122/61 07/10/19 03:00 60 14 133/65 (87) 94 Mechanical Ventilator 28.00 07/10/19 02:00 56 13 120/64 (82) 94 Mechanical Ventilator 28.00 07/10/19 01:00 70 07/10/19 01:00 63 14 127/65 (85) 94 Mechanical Ventilator 28.00 07/10/19 00:06 36.0 07/10/19 00:00 66 15 123/61 (81) 94 Mechanical Ventilator 28.00 07/10/19 00:00 Mechanical Ventilator 07/10/19 00:00 Mechanical Ventilator 28 07/09/19 23:25 56 14 95 28 07/09/19 23:00 55 13 125/56 (79) 94 Mechanical Ventilator 28.00 07/09/19 22:00 59 14 114/61 (78) 95 Mechanical Ventilator 28.00 07/09/19 21:00 71 13 125/65 (85) 95 Mechanical Ventilator 28.00 07/09/19 20:34 Mechanical Ventilator 07/09/19 20:00 35.9 07/09/19 20:00 Mechanical Ventilator 28 07/09/19 20:00 58 14 128/66 (86) 94 Mechanical Ventilator 28.00 07/09/19 19:00 66 07/09/19 19:00 63 14 119/60 (79) 94 Mechanical Ventilator 28.00 07/09/19 18:44 68 14 90 28 07/09/19 18:00 61 13 121/59 (79) 95 Mechanical Ventilator 28.00 07/09/19 17:00 63 14 116/63 (80) 94 Mechanical Ventilator 28.00 07/09/19 16:00 68 13 123/57 (79) 95 Mechanical Ventilator 28.00 07/09/19 16:00 Mechanical Ventilator 28 07/09/19 16:00 36.2 07/09/19 15:20 144/94 07/09/19 15:05 67 14 90 28 07/09/19 15:00 62 14 130/64 (86) 93 Mechanical Ventilator 28.00 07/09/19 14:00 69 14 129/73 (91) 94 Mechanical Ventilator 28.00 07/09/19 13:00 62 13 119/67 (84) 93 Mechanical Ventilator 28.00 07/09/19 12:44 79 07/09/19 12:00 66 13 137/68 (91) 91 Mechanical Ventilator 28.00 07/09/19 12:00 36.3 07/09/19 12:00 Mechanical Ventilator 28 07/09/19 11:34 118/54 07/09/19 11:00 79 13 119/56 (77) 91 Mechanical Ventilator 28.00 07/09/19 10:02 70 14 91 28 07/09/19 10:00 72 13 128/58 (81) 91 Mechanical Ventilator 28.00 07/09/19 09:44 70 07/09/19 09:00 74 13 139/82 (101) 92 Mechanical Ventilator 28.00 07/09/19 08:00 Mechanical Ventilator 28 07/09/19 08:00 37.0 07/09/19 08:00 81 14 133/70 (91) 91 Mechanical Ventilator 28.00 07/09/19 07:48 72 14 91 28 07/09/19 07:00 76 13 138/61 (86) 90 Mechanical Ventilator 28.00 07/09/19 06:39 74 07/09/19 06:38 Mechanical Ventilator 07/09/19 06:00 69 23 139/64 (89) 94 Mechanical Ventilator 28.00 07/09/19 05:00 67 17 140/60 (86) 94 Mechanical Ventilator 28.00 I & O 07/10/19 07:00 Intake Total 920 ml Output Total 3450 ml Balance -2530 ml Height & Weight Height: 5'4.00" Weight: 246lbs. 2.0oz. 111.677292hy; 44.00 BMI Method:Stated General Appearance: No Apparent Distress HEENT: PERRL/EOMI, Normal ENT Inspection, Pharynx Normal Neck: Normal Inspection Respiratory: No Accessory Muscle Use, No Respiratory Distress, Decreased Breath Sounds Cardiovascular: Regular Rate, Rhythm, No Murmur Capillary Refill: Less Than 3 Seconds Gastrointestinal: non tender, soft Extremity: Swelling, Other Neurologic/Psychiatric: Alert, Oriented x3 Skin: Normal Color, Warm/Dry Lymphatic: No Adenopathy Results Lab Laboratory Tests 07/09/19 03:11 07/10/19 03:24 Assessment/Plan Assessment/Plan Acute on chronic respiratory failure -- worsening -Continue ventilator care -Will attempt to wean vent -Propofol, fentanyl PNA with pseudomonus -- intermediate to Levaquin -Continue Merrem x 14 days total -MRSA screen is positive Pulmonary edema - bumex 1mg BID -- increase to 2 mg COPDAE -Solumedrol 40 IV Q 6 -Duoneb Q 4 Acute renal failure - monitor Anemia -Monitor - Lovenox PNA -Zosyn and vanco Hx of Diastolic CHF grade II - -Monitor -Continue lasix Anemia -Check occult stool Thrombocytopenia -Monitor HTN -Add hydralazine PRN ESTRELLITA PITT DO Jul 10, 2019 04:54
[2019-07-10] MEDS: POTASSIUM CL 10MEQ/50ML IVPB 50 ML IV SCH ×5 (05:37→08:25)
[2019-07-10] MEDS: LEVOTHYROXINE 150 MCG (LEVOTHROID) TAB PO SCH (05:38)
[2019-07-10] MEDS: LEVOTHYROXINE 25 MCG (LEVOTHROID) TAB PO SCH (05:38)
[2019-07-10] MEDS: methylPREDNISolone 40 MG/ML (Solu-MEDROL) VIAL IV SCH ×4 (05:38→18:18)
[2019-07-10] MEDS: MEROPENEM 500 MG/SWFI 10 ML IV PUSH IV SCH ×6 (05:38→21:17)
[2019-07-10] MEDS: KCL 20 MEQ TAB (K-DUR) PO SCH (05:41)
[2019-07-10] MEDS: MAGNESIUM 1 GM/100 ML IVPB 100 ML IV SCH (05:41)
[2019-07-10] MEDS: RT-BUDESONIDE NEBS 0.5 MG/2ML (PULMICORT) AMP INH SCH ×2 (06:57→18:56)
--- NOTE | 2019-07-10 07:45 | Progress Note ---
Subjective Time Seen by a Provider: 07:42 Subjective/Events-last exam We'll try to extubate patient today with pulmonology. Patient starting to wake up. Patient resting hand Objective Exam Vital Signs Date Time Temp Pulse Resp B/P (MAP) Pulse Ox O2 Delivery O2 Flow Rate FiO2 07/10/19 06:57 70 14 92 28 07/10/19 06:34 Mechanical Ventilator 07/10/19 06:00 70 14 132/67 (88) 93 Mechanical Ventilator 28.00 07/10/19 05:00 71 13 117/64 (81) 93 Mechanical Ventilator 28.00 07/10/19 04:09 36.2 07/10/19 04:00 Mechanical Ventilator 28 07/10/19 04:00 79 14 121/57 (78) 93 Mechanical Ventilator 28.00 07/10/19 03:12 122/61 07/10/19 03:10 75 14 94 28 07/10/19 03:00 60 14 133/65 (87) 94 Mechanical Ventilator 28.00 07/10/19 02:00 56 13 120/64 (82) 94 Mechanical Ventilator 28.00 07/10/19 01:00 70 07/10/19 01:00 63 14 127/65 (85) 94 Mechanical Ventilator 28.00 07/10/19 00:06 36.0 07/10/19 00:00 66 15 123/61 (81) 94 Mechanical Ventilator 28.00 07/10/19 00:00 Mechanical Ventilator 07/10/19 00:00 Mechanical Ventilator 28 07/09/19 23:25 56 14 95 28 07/09/19 23:00 55 13 125/56 (79) 94 Mechanical Ventilator 28.00 07/09/19 22:00 59 14 114/61 (78) 95 Mechanical Ventilator 28.00 07/09/19 21:00 71 13 125/65 (85) 95 Mechanical Ventilator 28.00 07/09/19 20:34 Mechanical Ventilator 07/09/19 20:00 35.9 07/09/19 20:00 Mechanical Ventilator 28 07/09/19 20:00 58 14 128/66 (86) 94 Mechanical Ventilator 28.00 07/09/19 19:00 66 07/09/19 19:00 63 14 119/60 (79) 94 Mechanical Ventilator 28.00 07/09/19 18:44 68 14 90 28 07/09/19 18:00 61 13 121/59 (79) 95 Mechanical Ventilator 28.00 07/09/19 17:00 63 14 116/63 (80) 94 Mechanical Ventilator 28.00 07/09/19 16:00 68 13 123/57 (79) 95 Mechanical Ventilator 28.00 07/09/19 16:00 Mechanical Ventilator 28 07/09/19 16:00 36.2 07/09/19 15:20 144/94 07/09/19 15:05 67 14 90 28 07/09/19 15:00 62 14 130/64 (86) 93 Mechanical Ventilator 28.00 07/09/19 14:00 69 14 129/73 (91) 94 Mechanical Ventilator 28.00 07/09/19 13:00 62 13 119/67 (84) 93 Mechanical Ventilator 28.00 07/09/19 12:44 79 07/09/19 12:00 66 13 137/68 (91) 91 Mechanical Ventilator 28.00 07/09/19 12:00 36.3 07/09/19 12:00 Mechanical Ventilator 28 07/09/19 11:34 118/54 07/09/19 11:00 79 13 119/56 (77) 91 Mechanical Ventilator 28.00 07/09/19 10:02 70 14 91 28 07/09/19 10:00 72 13 128/58 (81) 91 Mechanical Ventilator 28.00 07/09/19 09:44 70 07/09/19 09:00 74 13 139/82 (101) 92 Mechanical Ventilator 28.00 07/09/19 08:00 Mechanical Ventilator 28 07/09/19 08:00 37.0 07/09/19 08:00 81 14 133/70 (91) 91 Mechanical Ventilator 28.00 07/09/19 07:48 72 14 91 28 I & O 07/10/19 07:00 Intake Total 1320 ml Output Total 3800 ml Balance -2480 ml Capillary Refill : Less Than 3 Seconds General Appearance: No Apparent Distress, WD/WN Neck: Normal Inspection Respiratory: No Accessory Muscle Use, No Respiratory Distress, Decreased Breath Sounds Cardiovascular: Regular Rate, Rhythm, No Murmur Gastrointestinal: non tender, soft Results Lab Laboratory Tests 07/10/19 03:24 Laboratory Tests 07/09/19 08:00: Blood Gas Puncture Site RIGHT RADIAL, Blood Gas Patient Temperature 37, Arterial Blood pH 7.37, Arterial Blood Partial Pressure CO2 50H, Arterial Blood Partial Pressure O2 63L, Arterial Blood HCO3 29H, Arterial Blood Total CO2 30.0, Arterial Blood Oxygen Saturation 91L, Arterial Blood Base Excess 3.6H, Clif Test POSITIVE, Blood Gas Ventilator Setting YES, Blood Gas Inspired Oxygen 28% 07/09/19 18:07: Glucometer 158H 07/09/19 23:12: Glucometer 84 07/10/19 03:24: White Blood Count 5.8, Red Blood Count 3.14L, Hemoglobin 8.9L, Hematocrit 30L, Mean Corpuscular Volume 95, Mean Corpuscular Hemoglobin 28, Mean Corpuscular Hemoglobin Concent 30L, Red Cell Distribution Width 16.7H, Platelet Count 143, Mean Platelet Volume 10.3, Neutrophils (%) (Auto) 92H, Lymphocytes (%) (Auto) 5L , Monocytes (%) (Auto) 3, Eosinophils (%) (Auto) 0, Basophils (%) (Auto) 0, Neutrophils # (Auto) 5.4, Lymphocytes # (Auto) 0.3L, Monocytes # (Auto) 0.2, Eosinophils # (Auto) 0.0, Basophils # (Auto) 0.0, Sodium Level 142, Potassium [place] 4.1, Chloride Level 105, Carbon Dioxide Level 24, Anion Gap 13, Blood Urea Nitrogen 39H, Creatinine 1.06, Estimat Glomerular Filtration Rate 51, BUN/Creatinine Ratio 37, Glucose Level 90, Calcium Level 7.8L, Phosphorus Level 3.9, Magnesium Level 1.9, Triglycerides Level 438H 07/10/19 03:33: Blood Gas Puncture Site R RAD, Blood Gas Patient Temperature 36.2, Arterial Blood pH 7.37, Arterial Blood Partial Pressure CO2 49H, Arterial Blood Partial Pressure O2 63L, Arterial Blood HCO3 28H, Arterial Blood Total CO2 29.9, Arterial Blood Oxygen Saturation 91L, Arterial Blood Base Excess 3.3H, Clif Test YES-POS, Blood Gas Ventilator Setting YES, Blood Gas Inspired Oxygen 28% Microbiology 07/06/19 Gram Stain - Final, Complete 07/06/19 Sputum Culture - Final, Complete Pseudomonas aeruginosa 06/26/19 Blood Culture - Final, Complete No growth Assessment/Plan Assessment/Plan Assess & Plan/Chief Complaint Acute and chronic respiratory failure. COPD with acute exacerbation. Acute renal failure. Pneumonia or Thrombocytopenia. Hypertension. Hypoxia. . 07/01/2019. Electrolyte imbalance. Acute and chronic respiratory failure. Thrombocytopenia. COPD with acute exacerbation. Renal insufficiency. Pneumonia. Hypertension. Hypoxia.. . 07/02/2019. Maryam chronic respiratory failure. Thrombocytopenia better COPD with acute exacerbation. Renal insufficiency. Pneumonia. Hypertension. Hypoxia. . 07/03/2019. Acute and chronic respiratory failure. Thrombocytopenia likely 119,000 COPD with Acute Exacerbation. Renal Insufficiency. Pneumonia. Hypoxia. Hypertension Better. . 07/04/2019. Hypertension better. Thrombocytopenia better. Blood gases better. Renal insufficiency. Pneumonia. Hypoxia. Unit chronic respiratory failure. . 07/07/2019. Acute and chronic respiratory failure. COPD with acute exacerbation. Acute renal failure improved. Bradycardia. Pneumonia. . 07/08/2019. Patient on ventilator. Acute and chronic respiratory failure. COPD with acute exacerbation. Acute renal failure. Bradycardia. Pneumonia. . 07/09/2019 area Unit chronic respiratory failure.. COPD with acute exacerbation. Acute renal failure. Bradycardia. Pneumonia. Pseudomonas noted. . 07/10/2019. Acute and chronic respiratory failure. COPD with acute exacerbation. Acute renal failure improving. Bradycardia. Pneumonia. Pseudomonas noted. Attempting to take off ventilator today extubation Clinical Quality Measures Admission Status Admission Dx COPD with acute exacerbation left lower lobe pneumonia renal insufficiency acute short of breath acute respiratory failure thrombocytopenia hypertension hyperlipidemia DVT/VTE Risk/Contraindication: Risk Factor Score Per Nursin RFS Level Per Nursing on Admit: 4+=Very High AURORA STACK DO Jul 10, 2019 07:45
--- NOTE | 2019-07-10 08:17 | Physical Therapy Progress Note ---
Therapy Progress Note Patient is currently intubated and will try to extubate today. Will continue to hold PT until new orders are provided. MIGDALIA OSORIO PT Jul 10, 2019 08:17
--- NOTE | 2019-07-10 08:19 | Diagnostic Imaging Report ---
INDICATION: Respiratory failure. TIME OF EXAM: 3:23 AM Correlation is made with prior chest from one day earlier. FINDINGS: Heart is enlarged, but stable. ET tube has tip above the monik. NG tube passes below the diaphragm. Congestive changes do show some mild improvement since yesterday. There is some mild central congestion. No significant effusion or pneumothorax is seen. IMPRESSION: Improving congestive changes since exam one day earlier. Dictated by: Dictated on workstation # [id number]
[2019-07-10] MEDS: amLODIPine 5 MG (NORVASC) TAB PO SCH (08:25)
[2019-07-10] MEDS: ENOXAPARIN 40 MG/0.4 ML (LOVENOX) SYR SC SCH ×2 (08:25→21:12)
[2019-07-10] MEDS: MUPIROCIN 2% OINT 22 GM (BACTROBAN) TUBE NSEACH SCH ×2 (08:25→21:13)
--- NOTE | 2019-07-10 08:25 | Occ Therapy Progress Note ---
Therapy Progress Note Pt. continues on ventilator support. Will continue to monitor and evaluate when extubated and medically stable. 0825 ADDISON NEWTON OT Jul 10, 2019 08:25
[2019-07-10] MEDS: HALOPERIDOL 5 MG/ML (HALDOL) AMP IV SCH ×2 (08:26→21:13)
[2019-07-10] MEDS: meTOprolol TARTRATE 25 MG (LOPRESSOR) TABLET PO SCH ×2 (08:26→21:21)
[2019-07-10] MEDS: PANTOPRAZOLE 40 MG (PROTONIX) VIAL IV SCH (08:26)
[2019-07-10] MEDS ORDERED: BUMETANIDE 1 MG/4 ML (BUMEX) VIAL IV SCH (09:00)
[2019-07-10] MEDS: fentaNYL INJECTION 1,250 MCG in NS (IVPB) 250 ML IV SCH (10:01)
[2019-07-10 11:25] LABS: ABG BASE EXCESS 3.3 MMOL/L (-2.5-2.5); ABG OXYGEN SATURATION 93 % (94-100); ABG PCO2 48 MMHG (35-45); ABG PH 7.38 (7.37-7.43); ABG PO2 65 MMHG (79-93); ABG TCO2 29.6 MMOL/L (21.0-31.0)
[2019-07-10 11:26] LABS: ALLENS TEST POSITIVE
[2019-07-10 11:27] LABS: INSPIRED O2 28%; PATIENT TEMP 36.4; VENTILATOR YES
--- NOTE | 2019-07-10 11:45 | NUR ---
THIS NURSE NOTIFIED DR PITT OF ABG RESULTS AFTER VENT CHANGES, PT OFF SEDATION, PT IS FOLLOWING COMMANDS, BUT VERY DROWSY. ORDERS GIVEN TO EXTUBATE PT. BIPAP ONLY IF NEEDED.
--- NOTE | 2019-07-10 12:00 | NUR ---
RT AT BEDSIDE WITH THIS RN FOR EXTUBATION. ORAL CAVITY SUCTIONED. 10CC OF AIR REMOVED FROM ET TUBE. ETT REMOVED AT 1200. RN TO SUCTION PT ORAL CAVITY. RESTRAINTS REMOVED. PT PLACED ON 2 L NC. PT 02 SATURATIONS IN 96-97%. PT IS ALERT AND ORIENTED.
[2019-07-10] MEDS ORDERED: DEXTROSE 50% 50 ML (IMS) SYR ONE (12:50)
--- NOTE | 2019-07-10 12:51 | Cardiology Progress Note ---
Subjective Date Seen by Provider: Jul 10, 2019 Time Seen by Provider: 08:00 Subjective/Events-last exam Patient was seen this morning, intubated, starting to wean off sedation for possible weaning off ventilator. Review of Systems General: Other (sedated and intubated) Objective-Cardiology Exam Last Set of Vital Signs Vital Signs 07/10/19 07/10/19 07/10/19 07/10/19 07/10/19 04:09 10:29 12:00 12:18 12:35 Temp 36.2 Pulse 69 Resp 15 B/P (MAP) 132/63 (86) Pulse Ox 95 O2 Delivery Nasal Cannula O2 Flow Rate 2.00 FiO2 28 Capillary Refill : Less Than 3 Seconds I&O Intake and Output 07/10/19 00:00 Intake Total 1570 ml Output Total 2925 ml Balance -1355 ml Intake Oral 0 ml IV Total 970 ml Other 600 ml Output Urine Total 2825 ml Gastric Drainage Total 100 ml General: Other (Sedated and intubated) HEENT: Atraumatic, PERRLA Neck: Supple, No JVD, No Thyromegaly Lungs: Normal Air Movement, Other (Bilateral rhonchi) Heart: Regular Rate, Normal S1, Normal S2, No Murmurs Abdomen: Normal Bowel Sounds, Soft, No Tenderness, No Hepatosplenomegaly, No Masses Extremities: No Clubbing, No Cyanosis, Normal Pulses, Other (Peripheral edema) Skin: Other (Chronic venous stasis changes) Neuro: Other (Sedated and intubated) Psych/Mental Status: Other (Sedated and intubated) Results Lab Laboratory Tests 07/10/19 03:24 A/P-Cardiology Admission Diagnosis Acute respiratory failure COPD Pneumonia Sinus bradycardia Assessment/Plan Acute on chronic respiratory failure, intubated for the second time during her hospital stay. Managed by Dr. Arrieta Acute exacerbation of COPD, worsening dyspnea and hypoxemia, ventilator dependent Bradycardia, sinus bradycardia with long sinus pauses probably secondary to severe hypoxemia, no known previous cardiac history, heart rate is better at this time. Continue to monitor Acute renal failure, improved, continue to monitor renal function. Hypertension, currently on sedation. Monitor blood pressure closely Anemia, continue to monitor H/H, managed by primary care team. Clinical Quality Measures DVT/VTE Risk/Contraindication: Risk Factor Score Per Nursin RFS Level Per Nursing on Admit: 4+=Very High JANA TURPIN MD Jul 10, 2019 12:51 pm
--- NOTE | 2019-07-10 12:52 | NUR ---
THIS NURSE NOTIFIED DR PITT PT BLOOD SUGAR 68. PT IS DROWSY. ORDERS GIVEN TO GIVE 1/2 AMP OF D50 IV ONCE AND TO CHECK BLOOD SUGARS [id number] X4. WILL CONTINUE TO MONITOR.
[2019-07-10] MEDS ORDERED: DEXTROSE 50% 50 ML (IMS) SYR IV ONE (13:00)
[2019-07-10] MEDS: BUMETANIDE 2.5 MG/10 ML (BUMEX) VIAL IV SCH (21:10)
[2019-07-10] MEDS: MELATONIN 3 MG TABLET PO SCH (21:15)
[2019-07-10] MEDS: LACTATED RINGERS 1,000 ML IV SCH (21:22)
[2019-07-11] VITALS (32 sets, daily range): BP systolic 88–177; BP diastolic 45–100
[2019-07-11] MEDS: methylPREDNISolone 40 MG/ML (Solu-MEDROL) VIAL IV SCH ×5 (00:09→23:49)
[2019-07-11] MEDS: inSUlin ASPART (NovoLOG) 1 UNIT/0.01 ML (CHARGE PER UNIT) SC SCH ×5 (00:11→23:49)
[2019-07-11] MEDS: RT-ALBUTEROL/IPRATROPIUM 3 ML (DUONEB) VIAL INH SCH ×7 (02:04→21:45)
--- NOTE | 2019-07-11 03:00 | NUR ---
NOTIFIED [facility] OF PATIENT HAVING LOW OUTPUT, 80CC AT 0200. WILL CONTINUE TO MONITOR.
[2019-07-11 04:18] LABS: BASOPHILS % (AUTO) 0 % (0-10); EOSINOPHILS % (AUTO) 0 % (0-10); HEMATOCRIT 35 % (35-52); HEMOGLOBIN 9.9 G/DL (11.5-16.0); LYMPHOCYTES # (AUTO) 0.2 X 10^3 (1.0-4.0); LYMPHOCYTES % (AUTO) 2 % (12-44); MEAN CORPUSCULAR HEMOGLOBIN 28 PG (25-34); MEAN CORPUSCULAR HGB CONC 28 G/DL (32-36); MEAN CORPUSCULAR VOLUME 99 FL (80-99); MONOCYTES # (AUTO) 0.4 X 10^3 (0.0-1.0); MONOCYTES % (AUTO) 3 % (0-12); NEUTROPHILS # (AUTO) 13.5 X 10^3 (1.8-7.8); NEUTROPHILS % (AUTO) 95 % (42-75); PLATELET COUNT 154 10^3/uL (130-400); RED CELL DISTRIBUTION WIDTH 17.1 % (10.0-14.5); WHITE BLOOD COUNT 14.1 10^3/uL (4.3-11.0)
[2019-07-11 04:36] LABS: CREATININE SERUM 1.19 MG/DL (0.60-1.30); MAGNESIUM 2.1 MG/DL (1.6-2.4); PHOSPHORUS 5.6 MG/DL (2.3-4.7); POTASSIUM 4.7 MMOL/L (3.6-5.0)
[2019-07-11 04:56] LABS: LYMPHOCYTES % (MANUAL) 1 %; METAMYELOCYTES % 1 %; MONOCYTES % (MANUAL) 2 %; NEUTROPHILS % (MANUAL) 96 %
--- NOTE | 2019-07-11 05:07 | Pulmonary Progress Note ---
Subjective Time Seen by a Provider: 05:04 Subjective/Events-last exam Pt is currently on NC. She is lethargic. Sepsis Event Evaluation Height, Weight, BMI Height: 5'4.00" Weight: 246lbs. 2.0oz. 111.293127aw; 44.00 BMI Method:Stated Exam Exam Vital Signs Date Time Temp Pulse Resp B/P (MAP) Pulse Ox O2 Delivery O2 Flow Rate FiO2 07/11/19 04:44 Nasal Cannula 2.00 07/11/19 04:00 93 28 121/98 (106) 97 Nasal Cannula 1.00 07/11/19 03:00 76 10 91 Nasal Cannula 1.00 07/11/19 02:05 92 Nasal Cannula 1.00 07/11/19 02:00 80 12 93/45 (61) 96 Nasal Cannula 1.00 07/11/19 01:00 74 07/11/19 01:00 74 13 109/51 (70) 92 Nasal Cannula 1.00 07/11/19 00:00 93 Nasal Cannula 2.00 07/11/19 00:00 71 13 113/58 (76) 96 Nasal Cannula 1.00 07/11/19 00:00 36.0 07/10/19 23:00 86 19 108/58 (75) 89 Nasal Cannula 1.00 07/10/19 22:00 67 19 104/52 (69) 95 Nasal Cannula 1.00 07/10/19 21:00 69 10 112/54 (73) 92 Nasal Cannula 1.00 07/10/19 20:27 35.6 07/10/19 20:00 72 24 116/50 (72) 92 Nasal Cannula 1.00 07/10/19 20:00 93 Nasal Cannula 2.00 07/10/19 19:17 Nasal Cannula 1.00 07/10/19 19:00 70 12 112/59 (76) 94 Nasal Cannula 2.00 07/10/19 19:00 70 07/10/19 18:56 98 Nasal Cannula 1.00 07/10/19 18:56 97 Nasal Cannula 2.00 07/10/19 18:00 73 13 123/62 (82) 96 Nasal Cannula 2.00 07/10/19 17:00 70 25 120/63 (82) 96 Nasal Cannula 2.00 07/10/19 16:26 35.5 07/10/19 16:00 93 Nasal Cannula 2.00 07/10/19 16:00 73 16 136/70 (92) 96 Nasal Cannula 2.00 07/10/19 15:09 95 Nasal Cannula 2.00 07/10/19 15:00 74 24 154/90 (111) 90 Nasal Cannula 2.00 07/10/19 14:00 68 15 137/71 (93) 93 Nasal Cannula 2.00 07/10/19 13:00 71 13 125/64 (84) 99 Nasal Cannula 2.00 07/10/19 12:35 Nasal Cannula 2.00 07/10/19 12:18 69 07/10/19 12:10 93 Nasal Cannula 2.00 07/10/19 12:00 36.4 07/10/19 12:00 72 15 132/63 (86) 95 Mechanical Ventilator 28.00 07/10/19 11:00 74 32 147/97 (114) 92 Mechanical Ventilator 28.00 07/10/19 10:36 65 17 92 07/10/19 10:29 71 14 96 28 07/10/19 10:00 61 29 137/75 (95) 94 Mechanical Ventilator 28.00 07/10/19 09:00 70 13 148/72 (97) 95 Mechanical Ventilator 28.00 07/10/19 08:00 72 13 153/71 (98) 97 Mechanical Ventilator 28.00 07/10/19 08:00 Mechanical Ventilator 28 07/10/19 08:00 36.3 07/10/19 07:00 76 30 133/84 (100) 97 Mechanical Ventilator 28.00 07/10/19 07:00 78 07/10/19 06:57 70 14 92 28 07/10/19 06:34 Mechanical Ventilator 07/10/19 06:00 70 14 132/67 (88) 93 Mechanical Ventilator 28.00 I & O 07/11/19 07:00 Intake Total 60 ml Output Total 1620 ml Balance -1560 ml Height & Weight Height: 5'4.00" Weight: 246lbs. 2.0oz. 111.328538xn; 44.00 BMI Method:Stated General Appearance: WD/WN, Moderate Distress HEENT: PERRL/EOMI, Normal ENT Inspection, Pharynx Normal Neck: Normal Inspection Respiratory: No Accessory Muscle Use, No Respiratory Distress, Decreased Breath Sounds Cardiovascular: Regular Rate, Rhythm, No Murmur Capillary Refill: Less Than 3 Seconds Gastrointestinal: non tender, soft Extremity: Swelling, Other Neurologic/Psychiatric: Alert, Depressed Affect Skin: Normal Color, Warm/Dry Lymphatic: No Adenopathy Results Lab Laboratory Tests 07/10/19 03:24 07/11/19 04:12 Assessment/Plan Assessment/Plan Acute on chronic respiratory failure -- worsening -Pt was extubated yesterday -She is more lethargic now. She is requiring minimal oxygen -Hold all sedation -Start BiPAP and check ABG 2hours after. -If pt is reintubated will consult Dr. Agosto for tracheostomy. PNA with pseudomonus -- intermediate to Levaquin -Continue Merrem x 14 days total -MRSA screen is positive Pulmonary edema - bumex 2 mg BID COPDAE -Solumedrol 40 IV Q 6 -Duoneb Q 4 Acute renal failure - monitor Anemia -Monitor - Lovenox Hx of Diastolic CHF grade II - -Monitor -Continue bumex Anemia -Check occult stool Thrombocytopenia -Monitor HTN -Add hydralazine PRN ESTRELLITA PITT DO Jul 11, 2019 05:07
[2019-07-11] MEDS ORDERED: DEXTROSE 50% 50 ML (IMS) SYR ONE ×2 (05:16→12:04)
[2019-07-11] MEDS: POTASSIUM CL 10MEQ/50ML IVPB 50 ML IV SCH (05:59)
[2019-07-11] MEDS: MAGNESIUM 1 GM/100 ML IVPB 100 ML IV SCH (05:59)
[2019-07-11] MEDS ORDERED: DEXTROSE 50% 50 ML (IMS) SYR IV ONE (06:00)
[2019-07-11] MEDS: LEVOTHYROXINE 150 MCG (LEVOTHROID) TAB PO SCH (06:23)
[2019-07-11] MEDS: MEROPENEM 500 MG/SWFI 10 ML IV PUSH IV SCH ×6 (06:23→21:02)
[2019-07-11] MEDS: LEVOTHYROXINE 25 MCG (LEVOTHROID) TAB PO SCH (06:23)
[2019-07-11] MEDS: KCL 20 MEQ TAB (K-DUR) PO SCH (06:23)
[2019-07-11] MEDS: BUMETANIDE 2.5 MG/10 ML (BUMEX) VIAL IV SCH ×2 (06:39→15:51)
[2019-07-11] MEDS ORDERED: LACTATED RINGERS 1,000 ML IV ONE (06:45)
--- NOTE | 2019-07-11 07:05 | Diagnostic Imaging Report ---
INDICATION: Respiratory failure. Portable chest 3:19 AM FINDINGS: Right upper extremity PICC line tip projects over the SVC. There is cardiomegaly with some apical vascular distribution. There is some volume loss at the lung bases. IMPRESSION: Bibasilar atelectasis. Cardiomegaly with mild pulmonary venous hypertension. Dictated by: Dictated on workstation # [id number]
[2019-07-11] MEDS: RT-BUDESONIDE NEBS 0.5 MG/2ML (PULMICORT) AMP INH SCH (07:10)
--- NOTE | 2019-07-11 07:11 | Progress Note ---
Subjective Time Seen by a Provider: 07:06 Subjective/Events-last exam Patient lethargic this morning. Patient doesn't answer questions. Patient slow in movement Objective Exam Vital Signs Date Time Temp Pulse Resp B/P (MAP) Pulse Ox O2 Delivery O2 Flow Rate FiO2 07/11/19 06:00 75 12 108/54 (72) 89 NIV Bilevel 30.00 07/11/19 05:35 NIV Bilevel 30.00 07/11/19 05:15 71 15 96 40.00 07/11/19 05:10 NIV Bilevel 40.00 07/11/19 05:00 77 11 115/58 (77) 97 Nasal Cannula 2.00 07/11/19 04:44 Nasal Cannula 2.00 07/11/19 04:00 93 Nasal Cannula 2.00 07/11/19 04:00 93 28 121/98 (106) 97 Nasal Cannula 1.00 07/11/19 03:00 76 10 91 Nasal Cannula 1.00 07/11/19 02:05 92 Nasal Cannula 1.00 07/11/19 02:00 80 12 93/45 (61) 96 Nasal Cannula 1.00 07/11/19 01:00 74 07/11/19 01:00 74 13 109/51 (70) 92 Nasal Cannula 1.00 07/11/19 00:00 93 Nasal Cannula 2.00 07/11/19 00:00 71 13 113/58 (76) 96 Nasal Cannula 1.00 07/11/19 00:00 36.0 07/10/19 23:00 86 19 108/58 (75) 89 Nasal Cannula 1.00 07/10/19 22:00 67 19 104/52 (69) 95 Nasal Cannula 1.00 07/10/19 21:00 69 10 112/54 (73) 92 Nasal Cannula 1.00 07/10/19 20:27 35.6 07/10/19 20:00 72 24 116/50 (72) 92 Nasal Cannula 1.00 07/10/19 20:00 93 Nasal Cannula 2.00 07/10/19 19:17 Nasal Cannula 1.00 07/10/19 19:00 70 12 112/59 (76) 94 Nasal Cannula 2.00 07/10/19 19:00 70 07/10/19 18:56 98 Nasal Cannula 1.00 07/10/19 18:56 97 Nasal Cannula 2.00 1/16/20 18:00 73 13 123/62 (82) 96 Nasal Cannula 2.00 07/10/19 17:00 70 25 120/63 (82) 96 Nasal Cannula 2.00 07/10/19 16:26 35.5 07/10/19 16:00 93 Nasal Cannula 2.00 07/10/19 16:00 73 16 136/70 (92) 96 Nasal Cannula 2.00 07/10/19 15:09 95 Nasal Cannula 2.00 07/10/19 15:00 74 24 154/90 (111) 90 Nasal Cannula 2.00 07/10/19 14:00 68 15 137/71 (93) 93 Nasal Cannula 2.00 07/10/19 13:00 71 13 125/64 (84) 99 Nasal Cannula 2.00 07/10/19 12:35 Nasal Cannula 2.00 07/10/19 12:18 69 07/10/19 12:10 93 Nasal Cannula 2.00 07/10/19 12:00 36.4 07/10/19 12:00 72 15 132/63 (86) 95 Mechanical Ventilator 28.00 07/10/19 11:00 74 32 147/97 (114) 92 Mechanical Ventilator 28.00 07/10/19 10:36 65 17 92 07/10/19 10:29 71 14 96 28 07/10/19 10:00 61 29 137/75 (95) 94 Mechanical Ventilator 28.00 07/10/19 09:00 70 13 148/72 (97) 95 Mechanical Ventilator 28.00 07/10/19 08:00 72 13 153/71 (98) 97 Mechanical Ventilator 28.00 07/10/19 08:00 Mechanical Ventilator 28 07/10/19 08:00 36.3 I & O 07/11/19 07:00 Intake Total 60 ml Output Total 1700 ml Balance -1640 ml Capillary Refill : Less Than 3 Seconds General Appearance: No Apparent Distress, WD/WN HEENT: Normal ENT Inspection Neck: Full Range of Motion, Normal Inspection Respiratory: Lungs Clear, No Accessory Muscle Use, No Respiratory Distress, Decreased Breath Sounds Cardiovascular: Regular Rate, Rhythm, No Murmur Gastrointestinal: non tender, soft Results Lab Laboratory Tests 07/11/19 04:12 Laboratory Tests 07/10/19 11:19: Blood Gas Puncture Site L RADIAL, Blood Gas Patient Temperature 36.4, Arterial Blood pH 7.38, Arterial Blood Partial Pressure CO2 48H, Arterial Blood Partial Pressure O2 65L, Arterial Blood HCO3 28H, Arterial Blood Total CO2 29.6, Arterial Blood Oxygen Saturation 93L, Arterial Blood Base Excess 3.3H, Clif Test POSITIVE, Blood Gas Ventilator Setting YES, Blood Gas Inspired Oxygen 28% 07/10/19 12:15: Glucometer 68L 07/10/19 13:29: Glucometer 186H 07/10/19 15:52: Glucometer 78 07/10/19 16:43: Glucometer 109 07/10/19 17:53: Glucometer 157H 07/10/19 20:14: Glucometer 72 07/11/19 00:11: Glucometer 75 07/11/19 04:12: White Blood Count 14.1H, Red Blood Count 3.52L, Hemoglobin 9.9L, Hematocrit 35, Mean Corpuscular Volume 99, Mean Corpuscular Hemoglobin 28, Mean Corpuscular Hemoglobin Concent 28L, Red Cell Distribution Width 17.1H, Platelet Count 154, Mean Platelet Volume 11.0H, Neutrophils (%) (Auto) 95H, Lymphocytes (%) (Auto) 2L, Monocytes (%) (Auto) 3, Eosinophils (%) (Auto) 0, Basophils (%) (Auto) 0, Neutrophils # (Auto) 13.5H, Lymphocytes # (Auto) 0.2L, Monocytes # (Auto) 0.4, Eosinophils # (Auto) 0.0, Basophils # (Auto) 0.0, Neutrophils % (Manual) 96, Lymphocytes % (Manual) 1, Monocytes % (Manual) 2, Metamyelocytes % 1, Sodium Level 143, Potassium Level 4.7, Chloride Level 107, Carbon Dioxide Level 26, Anion Gap 10, Blood Urea Nitrogen 41H, Creatinine 1.19, Estimat Glomerular Filtration Rate 45, BUN/Creatinine Ratio 34, Glucose Level 67L, Calcium Level 8.0L, Phosphorus Level 5.6H, Magnesium Level 2.1 07/11/19 06:35: Glucometer 96 Microbiology 07/06/19 Gram Stain - Final, Complete 07/06/19 Sputum Culture - Final, Complete Pseudomonas aeruginosa 06/26/19 Blood Culture - Final, Complete No growth Assessment/Plan Assessment/Plan Assess & Plan/Chief Complaint Acute and chronic respiratory failure. COPD with acute exacerbation. Acute renal failure. Pneumonia or Thrombocytopenia. Hypertension. Hypoxia. . 07/01/2019. Electrolyte imbalance. Acute and chronic respiratory failure. Thrombocytopenia. COPD with acute exacerbation. Renal insufficiency. Pneumonia. Hypertension. Hypoxia.. . 07/02/2019. Maryam chronic respiratory failure. Thrombocytopenia better COPD with acute exacerbation. Renal insufficiency. Pneumonia. Hypertension. Hypoxia. . 07/03/2019. Acute and chronic respiratory failure. Thrombocytopenia likely 119,000 COPD with Acute Exacerbation. Renal Insufficiency. Pneumonia. Hypoxia. Hypertension Better. . 07/04/2019. Hypertension better. Thrombocytopenia better. Blood gases better. Renal insufficiency. Pneumonia. Hypoxia. Unit chronic respiratory failure. . 07/07/2019. Acute and chronic respiratory failure. COPD with acute exacerbation. Acute renal failure improved. Bradycardia. Pneumonia. . 07/08/2019. Patient on ventilator. Acute and chronic respiratory failure. COPD with acute exacerbation. Acute renal failure. Bradycardia. Pneumonia. . 07/09/2019 area Unit chronic respiratory failure.. COPD with acute exacerbation. Acute renal failure. Bradycardia. Pneumonia. Pseudomonas noted. . 07/10/2019. Acute and chronic respiratory failure. COPD with acute exacerbation. Acute renal failure improving. Bradycardia. Pneumonia. Pseudomonas noted. Attempting to take off ventilator today extubation. . 07/11/2019. Acute and chronic respiratory failure. Renal insufficiency. Pneumonia with Pseudomonas. Patient on BiPAP and is slow in doing things Clinical Quality Measures Admission Status Admission Dx COPD with acute exacerbation left lower lobe pneumonia renal insufficiency acute short of breath acute respiratory failure thrombocytopenia hypertension hyperlipidemia DVT/VTE Risk/Contraindication: Risk Factor Score Per Nursin RFS Level Per Nursing on Admit: 4+=Very High AURORA STACK DO Jul 11, 2019 07:11
[2019-07-11 07:14] LABS: ABG BASE EXCESS 0.8 MMOL/L (-2.5-2.5); ABG OXYGEN SATURATION 90 % (94-100); ABG PO2 56 MMHG (79-93); ABG TCO2 31.1 MMOL/L (21.0-31.0)
[2019-07-11 07:15] LABS: ALLENS TEST YES-POS; INSPIRED O2 30%; VENTILATOR NO
--- NOTE | 2019-07-11 07:16 | NUR ---
FENTANYL DRIP REMOVED FROM PUMP, WASTE OF 125 WITNESSED BY Roney NAVARRETE RN.
[2019-07-11 07:18] LABS: ABG PH 7.18 (7.37-7.43); PATIENT TEMP 36.4
[2019-07-11 07:19] LABS: ABG PCO2 79 MMHG (35-45)
[2019-07-11] MEDS ORDERED: NS IV 1000 ML 1,000 ML ONE (07:39)
[2019-07-11] MEDS ORDERED: proPOfol 200 MG/20 ML (DIPRIVAN) VIAL IV ONE (07:51)
--- NOTE | 2019-07-11 07:55 | NUR ---
Pt moved to room 10 where consent was obtained for tracheostomy with intent to transfer to [facility]. she was intubated with a 7.5 tube at 22 at the [facility]. pt was given 4 of versed and 5 ml of prop and one liter of ns wide open per dr crawford and intubated by Henry (international relations professor). ng was placed to right nare at 0805.
--- NOTE | 2019-07-11 08:12 | Consultation - Surgery ---
EVERETT MCQUEEN,MED STUDENT 07/11/19 0812: History of Present Illness History of Present Illness Patient Consulted On(evelyn/time) 07/11/19 08:07 Date Seen by Provider: Jul 11, 2019 Time Seen by Provider: 08:07 Reason for Visit: Bradycardia History of Present Illness Consult by Dr. Arrieta for a tracheotomy so patient can be placed on long-term mechanical ventilation. Patient is intubated but not sedated. Patient responds to vocal stimuli and will make eye contact when spoke to, but does not keep eyes open for long and appears to drift off to sleep. This 68y/o female has been here since 06/26/2019 for acute on chronic respiratory failure, COPDAE, PNA, ARF, and diastolic heart failure. 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 Patient has arranged to go to [facility] for long-term care but will need to be on mechanical ventilation and [facility] will on take her if she has a tracheostomy. Patient has been intubated on 06/27/2019 b/c of acute on chronic respiratory failure and extubated on and placed on BiPAP. Patient was then reintubated on 07/06/2019 b/c of acute on chronic respiratory failure and extubated on 07/10/2019 and placed on BiPAP again. Patient was reintubated this AM because of acute on chronic respiratory failure. Allergies and Home Medications Allergies Coded Allergies: ondansetron (Verified Allergy, Unknown, 05/14/19) risperidone (Verified Allergy, Unknown, 10/16/18) simvastatin (Unverified Adverse Reaction, Unknown, 04/20/14) Home Medications Acetaminophen 325 Mg Tablet, 650 MG PO Q4H PRN for PAIN-MILD, (Reported) TAKES 2 (325MG) TABLETS Acetazolamide 250 Mg Tablet, 250 MG PO DAILY, (Reported) Allopurinol 100 Mg Tablet, 100 MG PO DAILY, (Reported) Budesonide/Formoterol Fumarate 10.2 Gm Hfa.aer.ad, 2 PUFF INH BID, (Reported) Chlorophyllin/Adair 1 Each Tablet, 1 TAB PO BID, (Reported) Cholecalciferol (Vitamin D3) 2,000 Unit Capsule, 2,000 UNIT PO DAILY, (Reported) Dextran 70/Hypromellose 15 Ml Drops, 2 DROPS OU Q4H PRN for DRY EYES, (Reported) Garlic 1,000 Mg Capsule, 1,000 MG PO DAILY, (Reported) Glucosamine Sulfate 2Kcl 1,000 Mg Tablet, 1,000 MG PO BID, (Reported) Guaifenesin 600 Mg Tab.er.12h, 600 MG PO Q12H PRN for CONGESTION, (Reported) Hydrocodone Bit/Acetaminophen 1 Each Tablet, 1 TAB PO BID, (Reported) Ipratropium/Albuterol Sulfate 3 Ml Ampul.neb, 3 ML NEB QID, (Reported) Levothyroxine Sodium 175 Mcg Tablet, 175 MCG PO DAILY, (Reported) Mag Hydrox/Al Hydrox/Simeth 30 Ml Oral.susp, 30 ML PO UD PRN for INDIGESTION, (Reported) Metoprolol Tartrate 25 Mg Tablet, 25 MG PO BID, (Reported) HOLD FOR SBP<100, DBP <50, OR PULSE <60 Multivitamin 1 Each Tablet, 1 TAB PO DAILY, (Reported) Nystatin 15 Gm Powder, TOP UD PRN for REDNESS/IRRITATION, (Reported) Firestone 3 Polyunsat Fatty Acids 1,000 Mg Cap, 1,000 MG PO DAILY, (Reported) Pantoprazole Sodium 40 Mg Tablet.dr, 40 MG PO DAILY, (Reported) Torsemide 20 Mg Tablet, 40 MG PO DAILY, (Reported) TAKES 2 TABLETS (40MG) TABLETS Past Xidseza-Juzxzs-Fmuoqs Hx Patient Social History Alcohol Use: Occasionally Uses Recreational Drug Use: No Smoking Status: Former Smoker Type Used: Cigarettes Recent Foreign Travel: No Contact w/Someone Who Travel: No Recent Infectious Disease Expo: No Recent Hopitalizations: No Immunizations Up To Date Tetanus Booster (TDap): More than 5yrs Date of Pneumonia Vaccine: Jul 17, 2018 Date of Influenza Vaccine: Mar 10, 2019 Seasonal Allergies Seasonal Allergies: Yes Surgeries History of Surgeries: Yes Surgeries: Eye Surgery, Hysterectomy, Oophorectomy, Orthopedic, Tracheostomy Respiratory History of Respiratory Disorde: Yes Respiratory Disorders: Asthma, Pneumonia, COPD Cardiovascular History of Cardiac Disorders: Yes (PERICARDIAL WINDOW 1993) Cardiac Disorders: Atrial Fibrillation, Chronic Edema/Swelling, High Cholesterol, Hypertension Neurological History of Neurological Disord: Yes (NEUROPATHY IN FEET) Neurological Disorders: Neuropathy 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 System Hx 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 Disorders: Yes (ENDOMETRIAL HYPERPLASIA) Sexually Transmitted Disease: No CONSULTING INTERN History: Hysterectomy, Menopausal Genitourinary History of Genitourinary Disor: Yes (ON DIALYSIS WHILE SICK WITH PNEUMONIA/MULTIORGAN FAILURE) Genitourinary Disorders: Renal Failure Gastrointestinal History of Gastrointestinal Di: Yes Gastrointestinal Disorders: Abdominal Hernia, Gastroesophageal Reflux Musculoskeletal History of Musculoskeletal Dis: Yes Musculoskeletal Disorders: Arthritis, Chronic Back Pain Endocrine History of Endocrine Disorders: Yes (MORBID OBESITY) Endocrine Disorders: Hypothyroidsim HEENT History of HEENT Disorders: Yes (HX OF TRACH; LEFT EYE SURGERY) HEENT Disorders: Tinnitis Cancer History of Cancer: No Psychosocial History of Psychiatric Problem: Yes Behavioral Health Disorders: Anxiety, Depression Integumentary History of Skin or Integumenta: Yes (LEG ULCERS; VENOUS STASIS ) Blood Transfusions History of Blood Disorders: Yes (ANEMIA) Adverse Reaction to a Blood Tr: No Family Medical History Significant Family History: No Pertinent Family Hx Family Medial History: Alzheimer's disease Arthritis Asthma Completed stroke Dementia Diabetes mellitus Glaucoma Hypertension Kidney disease Myocardial infarction Psychosocial problem Respiratory disorder Severe allergy Thyroid disease Visual disorder No Family History of: AIDS Abdominal aortic aneurysm Jae's disease Alcoholism Aphasia Cancer of mouth Cardiovascular disease Cataracts Colon cancer Congenital disease Congenital heart disease Coronary thrombosis Cystic fibrosis Deafness or hearing loss Drug abuse Dysphasia Fibrocystic disease of breast Gastroenteritis Headache disorder Hypercholesterolemia Infertility Neoplasm Not obtainable due to adoption Osteoporosis Parkinson's disease Prostate cancer Seizure disorder Tuberculosis Review of Systems-General ROS-Unable to Obtain: Intubated and patient not alert enough to answer questions Physical Exam-General Problems Physical Exam Vital Signs Vital Signs - First Documented 07/05/19 07/05/19 07/05/19 00:00 03:08 03:09 Temp 36.0 Pulse 75 Resp 22 B/P (MAP) 124/51 (75) Pulse Ox 93 O2 Delivery NIV Bilevel O2 Flow Rate 28.00 FiO2 28 Capillary Refill : Less Than 3 Seconds General Appearance: moderate distress, obese, other (On a ventilator ) HEENT: PERRL/EOMI; No scleral icterus (R), No scleral icterus (L), No pale conjunctivae (R), No pale conjunctivae (L) Respiratory: lungs clear, wheezing, expiration, other (on a vent) Cardiovascular: regular rate, rhythm, no murmur Peripheral Pulses: 2+ Dorsalis Pedis (R), 2+ Left Dors-Pedis (L), 2+ Radial Pulses (R), 2+ Radial Pulses (L) Gastrointestinal: non tender, no organomegaly, no pulsatile mass, other (scars from previous surgeries, ecchymosis in Lower abdomen around Lovenox injection sites ) Extremities: no calf tenderness, pedal edema Neurologic/Psychiatric: alert, other (Patient is on a vent but not sedated ) Skin: warm/dry Data Review Labs Laboratory Tests 07/10/19 11:19: Blood Gas Puncture Site L RADIAL, Blood Gas Patient Temperature 36.4, Arterial Blood pH 7.38, Arterial Blood Partial Pressure CO2 48H, Arterial Blood Partial Pressure O2 65L, Arterial Blood HCO3 28H, Arterial Blood Total CO2 29.6, Arterial Blood Oxygen Saturation 93L, Arterial Blood Base Excess 3.3H, Clif Test POSITIVE, Blood Gas Ventilator Setting YES, Blood Gas Inspired Oxygen 28% 07/10/19 12:15: Glucometer 68L 07/10/19 13:29: Glucometer 186H 07/10/19 15:52: Glucometer 78 07/10/19 16:43: Glucometer 109 07/10/19 17:53: Glucometer 157H 07/10/19 20:14: Glucometer 72 07/11/19 00:11: Glucometer 75 07/11/19 04:12: White Blood Count 14.1H, Red Blood Count 3.52L, Hemoglobin 9.9L, Hematocrit 35, Mean Corpuscular Volume 99, Mean Corpuscular Hemoglobin 28, Mean Corpuscular Hemoglobin Concent 28L, Red Cell Distribution Width 17.1H, Platelet Count 154, Mean Platelet Volume 11.0H, Neutrophils (%) (Auto) 95H, Lymphocytes (%) (Auto) 2L, Monocytes (%) (Auto) 3, Eosinophils (%) (Auto) 0, Basophils (%) (Auto) 0, Neutrophils # (Auto) 13.5H, Lymphocytes # (Auto) 0.2L, Monocytes # (Auto) 0.4, Eosinophils # (Auto) 0.0, Basophils # (Auto) 0.0, Neutrophils % (Manual) 96, Lymphocytes % (Manual) 1, Monocytes % (Manual) 2, Metamyelocytes % 1, Sodium Level 143, Potassium Level 4.7, Chloride Level 107, Carbon Dioxide Level 26, Anion Gap 10, Blood Urea Nitrogen 41H, Creatinine 1.19, Estimat Glomerular Filtration Rate 45, BUN/Creatinine Ratio 34, Glucose Level 67L, Calcium Level 8.0L, Phosphorus Level 5.6H, Magnesium Level 2.1 07/11/19 06:35: Glucometer 96 07/11/19 06:56: Blood Gas Puncture Site L BRACH, Blood Gas Patient Temperature 36.4, Arterial Blood pH 7.18*L, Arterial Blood Partial Pressure CO2 79*H, Arterial Blood Partial Pressure O2 56L, Arterial Blood HCO3 29H, Arterial Blood Total CO2 31.1H , Arterial Blood Oxygen Saturation 90L, Arterial Blood Base Excess 0.8, Clif Test YES-POS, Blood Gas Ventilator Setting NO, Blood Gas Inspired Oxygen 30% Microbiology 07/06/19 Gram Stain - Final, Complete 07/06/19 Sputum Culture - Final, Complete Pseudomonas aeruginosa 06/26/19 Blood Culture - Final, Complete No growth Assessment/Plan Assessment/Plan Assessment/Plan Acute and chronic respiratory failure. COPD with acute exacerbation. Acute renal failure. Pneumonia Thrombocytopenia. Hypertension. Hypoxia. . Patient has been intubated and extubated multiple times during stay and now requires long-term ventilator support. She will need to have a tracheotomy in order for her to go to her long-term care facility, [facility]. Clinical Quality Measures DVT/VTE Risk/Contraindication: Risk Factor Score Per Nursin RFS Level Per Nursing on Admit: 4+=Very High JARED LEMUS DO 07/11/19 1229: History of Present Illness History of Present Illness History of Present Illness consult requested by Dr. Arrieta for tracheostomy. patient with multiple recurrent intubations for chronic recurrent respiratory failure. Just reintubated today. Patient with previous tracheostomy. Patient needing tracheostomy for further management of her care long-term. Patient currently Intubated and sedated. Allergies and Home Medications Allergies Coded Allergies: ondansetron (Verified Allergy, Unknown, 05/14/19) risperidone (Verified Allergy, Unknown, 10/16/18) simvastatin (Unverified Adverse Reaction, Unknown, 04/20/14) Home Medications Acetaminophen 325 Mg Tablet, 650 MG PO Q4H PRN for PAIN-MILD, (Reported) TAKES 2 (325MG) TABLETS Acetazolamide 250 Mg Tablet, 250 MG PO DAILY, (Reported) Allopurinol 100 Mg Tablet, 100 MG PO DAILY, (Reported) Budesonide/Formoterol Fumarate 10.2 Gm Hfa.aer.ad, 2 PUFF INH BID, (Reported) Chlorophyllin/Adair 1 Each Tablet, 1 TAB PO BID, (Reported) Cholecalciferol (Vitamin D3) 2,000 Unit Capsule, 2,000 UNIT PO DAILY, (Reported) Dextran 70/Hypromellose 15 Ml Drops, 2 DROPS OU Q4H PRN for DRY EYES, (Reported) Garlic 1,000 Mg Capsule, 1,000 MG PO DAILY, (Reported) Glucosamine Sulfate 2Kcl 1,000 Mg Tablet, 1,000 MG PO BID, (Reported) Guaifenesin 600 Mg Tab.er.12h, 600 MG PO Q12H PRN for CONGESTION, (Reported) Hydrocodone Bit/Acetaminophen 1 Each Tablet, 1 TAB PO BID, (Reported) Ipratropium/Albuterol Sulfate 3 Ml Ampul.neb, 3 ML NEB QID, (Reported) Levothyroxine Sodium 175 Mcg Tablet, 175 MCG PO DAILY, (Reported) Mag Hydrox/Al Hydrox/Simeth 30 Ml Oral.susp, 30 ML PO UD PRN for INDIGESTION, (Reported) Metoprolol Tartrate 25 Mg Tablet, 25 MG PO BID, (Reported) HOLD FOR SBP<100, DBP <50, OR PULSE <60 Multivitamin 1 Each Tablet, 1 TAB PO DAILY, (Reported) Nystatin 15 Gm Powder, TOP UD PRN for REDNESS/IRRITATION, (Reported) Firestone 3 Polyunsat Fatty Acids 1,000 Mg Cap, 1,000 MG PO DAILY, (Reported) Pantoprazole Sodium 40 Mg Tablet.dr, 40 MG PO DAILY, (Reported) Torsemide 20 Mg Tablet, 40 MG PO DAILY, (Reported) TAKES 2 TABLETS (40MG) TABLETS Patient Home Medication List Home Medication List Reviewed: Yes Past Qijiwej-Tnmgsm-Mocggf Hx Reviewed Nursing Assessment Reviewed/Agree w Nursing PMH: Yes Family Medical History Significant Family History: No Pertinent Family Hx Family Medial History: Alzheimer's disease Arthritis Asthma Completed stroke Dementia Diabetes mellitus Glaucoma Hypertension Kidney disease Myocardial infarction Psychosocial problem Respiratory disorder Severe allergy Thyroid disease Visual disorder No Family History of: AIDS Abdominal aortic aneurysm Jae's disease Alcoholism Aphasia Cancer of mouth Cardiovascular disease Cataracts Colon cancer Congenital disease Congenital heart disease Coronary thrombosis Cystic fibrosis Deafness or hearing loss Drug abuse Dysphasia Fibrocystic disease of breast Gastroenteritis Headache disorder Hypercholesterolemia Infertility Neoplasm Not obtainable due to adoption Osteoporosis Parkinson's disease Prostate cancer Seizure disorder Tuberculosis Review of Systems-General ROS-Unable to Obtain: intubated and sedated Physical Exam-General Problems Physical Exam General Appearance: other (On a ventilator , intubated and sedated) HEENT: PERRL/EOMI Neck: other (short, scar and skin opening from previous tracheostomy) Respiratory: other (on a vent) Cardiovascular: regular rate, rhythm Gastrointestinal: soft, no organomegaly Rectal: deferred Extremities: pedal edema Neurologic/Psychiatric: other (Patient is on a vent but not sedated ) Skin: warm/dry Lymphatic: no adenopathy Assessment/Plan Assessment/Plan Assessment/Plan Acute and chronic respiratory failure. COPD with acute exacerbation. Acute renal failure. Pneumonia Thrombocytopenia. Hypertension. Hypoxia. Patient with reintubation. 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 Will plan doing today. Obtain consent Supervisory-Addendum Brief Verification & Attestation Participated in pt care: history, MDM, physical Personally performed: exam, history, MDM, supervision of care Care discussed with: Medical Student Procedures: n/a Results interpretation: Verified all documentation Verification and Attestation of Medical Student E/M Service A medical student performed and documented this service in my presence. I reviewed and verified all information documented by the medical student and made modifications to such information, when appropriate. I personally performed the physical exam and medical decision making. Jared Lemus, Jul 11, 2019,12:31 EVERETT MCQUEEN,MED STUDENT Jul 11, 2019 08:12 JARED LEMUS DO Jul 11, 2019 12:29
--- NOTE | 2019-07-11 08:31 | Diagnostic Imaging Report ---
INDICATION: Respiratory failure. Portable chest 8:19 AM There is an ET tube projecting over the trachea. NG tube projects over the stomach. Right subclavian central line tip projects over the SVC. Heart size and pulmonary vascularity are both mildly increased. There is a small right pleural effusion. IMPRESSION: Pulmonary venous hypertension with small right pleural effusion. Dictated by: Dictated on workstation # [id number]
--- NOTE | 2019-07-11 08:36 | Pulmonary Procedures ---
Pulmonary Procedures Date of Procedure Date of Service: Jul 11, 2019 Reason for Intubation: resp failure Time of Intubation: 08:35 Intubation Method: orotracheal Tube Size: 8 Medications: Fentanyl, Propofol, Versed Positive End Tide CO2: Yes Breath Sounds after Intubation: bilateral-equal Intubation Complications: no complications Post Intubation Xray: Yes ESTRELLITA PITT DO Jul 11, 2019 08:36
--- NOTE | 2019-07-11 09:02 | Cardiology Progress Note ---
Subjective Date Seen by Provider: Jul 11, 2019 Time Seen by Provider: 09:00 Subjective/Events-last exam Patient is sedated and intubated Review of Systems General: Other (Sedated and intubated) Objective-Cardiology Exam Last Set of Vital Signs Vital Signs 07/11/19 07/11/19 07/11/19 00:00 07:59 08:00 Temp 36.0 Pulse 76 Resp 11 B/P (MAP) 103/54 (70) Pulse Ox 99 O2 Delivery Mechanical Ventilator O2 Flow Rate 100.00 FiO2 50 Capillary Refill : Less Than 3 Seconds I&O Intake and Output 07/11/19 00:00 Intake Total 660 ml Output Total 2845 ml Balance -2185 ml IV Total 400 ml Other 260 ml Output Urine Total 2675 ml Gastric Drainage Total 170 ml General: Other (Sedated and intubated) HEENT: Atraumatic Neck: Supple, No JVD, No Thyromegaly Lungs: Normal Air Movement, Other (Bilateral rhonchi) Heart: Regular Rate, Normal S1, Normal S2, No Murmurs Abdomen: Normal Bowel Sounds, Soft, No Tenderness, No Hepatosplenomegaly, No Masses Extremities: No Clubbing, No Cyanosis, Normal Pulses, Other (Peripheral edema) Skin: Other (Chronic venous stasis changes) Neuro: Other (Sedated and intubated) Psych/Mental Status: Other (Sedated and intubated) Results Lab Laboratory Tests 07/11/19 04:12 A/P-Cardiology Admission Diagnosis Acute respiratory failure COPD Pneumonia Sinus bradycardia Assessment/Plan Acute on chronic respiratory failure, acute exacerbation of COPD, intubated for the second time during her hospital stay, for possible tracheostomy today, managed by automotive tire worker Acute exacerbation of COPD, worsening dyspnea and hypoxemia, ventilator dependent Bradycardia, sinus bradycardia with long sinus pauses probably secondary to severe hypoxemia, no known previous cardiac history, heart rate is better at this time. Continue to monitor Acute renal failure, improved, renal functions are normal. Continue to monitor Hypertension, currently on sedation. Monitor blood pressure closely Clinical Quality Measures DVT/VTE Risk/Contraindication: Risk Factor Score Per Nursin RFS Level Per Nursing on Admit: 4+=Very High JANA TURPIN MD Jul 11, 2019 09:02
[2019-07-11] MEDS: ENOXAPARIN 40 MG/0.4 ML (LOVENOX) SYR SC SCH ×2 (09:22→20:53)
--- NOTE | 2019-07-11 09:40 | Physical Therapy Progress Note ---
Therapy Progress Note Patient reintubated on this date. No skilled PT indicated. Will require new orders. MIGDALIA OSORIO PT Jul 11, 2019 09:40
[2019-07-11] MEDS: PROPOFOL DRIP (ICU) 100 ML IV SCH ×5 (09:41→22:35)
[2019-07-11] MEDS: amLODIPine 5 MG (NORVASC) TAB PO SCH (09:41)
[2019-07-11] MEDS: PANTOPRAZOLE 40 MG (PROTONIX) VIAL IV SCH (09:41)
[2019-07-11] MEDS: HALOPERIDOL 5 MG/ML (HALDOL) AMP IV SCH ×2 (09:41→20:57)
[2019-07-11] MEDS: meTOprolol TARTRATE 25 MG (LOPRESSOR) TABLET PO SCH ×2 (09:42→20:57)
--- NOTE | 2019-07-11 10:26 | NUR ---
PALLIATIVE CARE RN up to see patient. She was extubated yesterday and was not able to maintain so she was reintubated this morning. Prior to reintubation patient had a discussion with the RN and agreed to a trach with transfer to [facility]. She has agreed to both and has signed consent. It is anticipated that trac will be placed this afternoon by Dr. Lemus. I have updated patients cousin/DPOA on the POC and she is agreeable. NO other needs at this time.
[2019-07-11] MEDS ORDERED: LACTATED RINGERS 1,000 ML IV SCH (10:40)
--- NOTE | 2019-07-11 10:41 | NUR ---
Dr Arrieta notified of low urine output. new orders to bolus on liter and start LR at 150.
[2019-07-11] MEDS ORDERED: MIDAZOLAM 5 MG/5 ML (VERSED) VIAL IJ ONE (10:42)
--- NOTE | 2019-07-11 10:56 | Occ Therapy Progress Note ---
Therapy Progress Note Pt reintubated this date. Hold OT at this time secondary to medical status. Will continue to monitor. IHSAN REED OT Jul 11, 2019 10:56
[2019-07-11] MEDS: LACTATED RINGERS 1,000 ML IV SCH ×2 (11:40→19:29)
[2019-07-11] MEDS ORDERED: MIDAZOLAM 2 MG/2 ML (VERSED) VIAL ONE ×2 (12:43→14:00)
--- NOTE | 2019-07-11 13:17 | NUR ---
1130 DUE TO CHANGES IN STAFFING CARE OF PT TO THIS RN. REPORT RECEIVED FROM MAGGIE BESS
--- NOTE | 2019-07-11 13:18 | NUR ---
1305 PT TO OR VIA BED ACCOMPANIED BY OR STAFF AND ANESTHESIA.
[2019-07-11] MEDS ORDERED: ROCURONIUM 10 MG/ML 5 ML SYRINGE IV ONE (14:00)
--- NOTE | 2019-07-11 14:18 | Progress Note-Post Operative ---
Post-Operative Progess Note Surgeon (s)/Booster Plant Operator (s) Surgeon JARED ANTONIO DO Booster Plant Operator: Dr. Bunn Pre-Operative Diagnosis chronic respiratory failure, previous tracheostomy Post-Operative Diagnosis same Procedure & Operative Findings Date of Procedure 07/11/19 Procedure Performed/Findings open tracheostomy Anesthesia Type gen Estimated Blood Loss Estimated blood loss (mL): min Specimens/Packing Specimens Removed na JARED ANTONIO DO Jul 11, 2019 14:18
--- NOTE | 2019-07-11 14:51 | Diagnostic Imaging Report ---
INDICATION: Status post tracheostomy. TIME OF EXAM: 2:30 PM Correlation is made with prior chest from earlier same day. Tracheostomy tube has been placed and has its tip in good position above the monik. Right-sided line has tip overlying the SVC. NG tube passes below the diaphragm. The heart is enlarged but stable. Appears to be some mild left basilar infiltrate or atelectasis. There is no pneumothorax. IMPRESSION: Tracheostomy placement, as described. Dictated by: Dictated on workstation # [id number]
[2019-07-11] MEDS ORDERED: SEVOFLURANE (ULTANE) 15 ML INHAL SOLN ONE (15:05)
[2019-07-11] MEDS: hydrALAZINE (APESOLINE) 20 MG/ML VIAL IV PRN (15:18)
--- NOTE | 2019-07-11 15:21 | NUR ---
1417 PT BACK TO ROOM 410 VIA BED ACCOMPANIED BY OR STAFF AND ANESTHESIA. PT NOTED TO HAVE SIZE 8 TRACHEA, PAR RN IN ROOM. 1430 REPORT RECEIVED FROM Inga MURRIETA PAR NURSE. ALL PREVIOUS MEDICATIONS RESTARTED. WILL CONTINUE TO MONITOR.
--- NOTE | 2019-07-11 15:49 | NUR ---
DISCHARGE PLANNING/Palliative Care: This RN sent updated clinical information to [facility]. Confirmed receipt. They will be looking for a transfer on Sunday, as the trach is too new for a weekend admit. I will send updates Sunday.
[2019-07-11] MEDS: MELATONIN 3 MG TABLET PO SCH (20:48)
--- NOTE | 2019-07-11 23:13 | OPERATIVE REPORT ---
DATE OF SERVICE: 07/11/2019 PREOPERATIVE DIAGNOSES: Chronic respiratory failure, previous tracheostomy. POSTOPERATIVE DIAGNOSES: Chronic respiratory failure, previous tracheostomy. PROCEDURE: Open tracheostomy. SURGEON: Jared Lemus DO MEDIA AID: Dr. Bunn, assisted in retraction, dissection and closure. ANESTHESIA: General. ESTIMATED BLOOD LOSS: Minimal. COMPLICATIONS: None. INDICATIONS: The patient is a 68-year-old female with chronic respiratory failure needing multiple reintubations. For long-term care, has been requested that tracheostomy be placed by Dr. Arrieta. Consent was signed and on the chart. DESCRIPTION OF PROCEDURE: The patient was taken to the operating suite. She was prepped and draped in sterile fashion. Surgical pause was performed. Using the patient's previous tracheostomy skin opening, a 15 blade scalpel was used to make an incision across the neck and cautery was used to dissect down through the subcutaneous tissues having to mobilize inferior and superior flap, releasing the skin. Dissection was taken down to the trachea, which was easily palpated. Lots of scar tissue in this area; therefore, where the previous tracheostomy softening of the trachea scar was present under visualization, the bronchoscopy performed by anesthesia. A needle with catheter was inserted through the anterior portion of the trachea. Air was withdrawn. The catheter remained in place and the needle was removed. The wire was inserted through the catheter. The catheter was then removed. Visualization with the bronchoscopy demonstrated correct location. Serial dilations were then made over the wire and a #8 tracheostomy tube was then inserted. The endotracheal tube was removed and tracheostomy was then used from this time forward. There were no air leak and good end tidal volumes. The tracheostomy tube was then secured using 2-0 Prolene sutures. The neck collar was used to secure it as well. The patient was then taken back to the Intensive Care Unit with chest x-ray pending. Job ID: [id number] DocumentID: [id number] Dictated Date: 07/11/2019 14:27:04 Heel Finisher Date: 07/11/2019 23:12:52 Dictated By: JARED LEMUS DO
[2019-07-12] VITALS (31 sets, daily range): BP systolic 102–132; BP diastolic 56–102
[2019-07-12] MEDS: LACTATED RINGERS 1,000 ML IV SCH ×4 (00:53→19:44)
[2019-07-12] MEDS: RT-BUDESONIDE NEBS 0.5 MG/2ML (PULMICORT) AMP INH SCH ×3 (02:26→18:17)
[2019-07-12] MEDS: RT-ALBUTEROL/IPRATROPIUM 3 ML (DUONEB) VIAL INH SCH ×6 (02:26→22:06)
[2019-07-12] MEDS: PROPOFOL DRIP (ICU) 100 ML IV SCH ×6 (02:32→23:59)
[2019-07-12 02:43] LABS: BASOPHILS % (AUTO) 0 % (0-10); EOSINOPHILS % (AUTO) 0 % (0-10); HEMATOCRIT 31 % (35-52); HEMOGLOBIN 9.1 G/DL (11.5-16.0); LYMPHOCYTES # (AUTO) 0.2 X 10^3 (1.0-4.0); LYMPHOCYTES % (AUTO) 3 % (12-44); MEAN CORPUSCULAR HEMOGLOBIN 28 PG (25-34); MEAN CORPUSCULAR HGB CONC 29 G/DL (32-36); MEAN CORPUSCULAR VOLUME 97 FL (80-99); MEAN PLATELET VOLUME 11.1 FL (7.4-10.4); MONOCYTES # (AUTO) 0.3 X 10^3 (0.0-1.0); MONOCYTES % (AUTO) 4 % (0-12); NEUTROPHILS # (AUTO) 6.3 X 10^3 (1.8-7.8); NEUTROPHILS % (AUTO) 93 % (42-75); PLATELET COUNT 118 10^3/uL (130-400); RED CELL DISTRIBUTION WIDTH 16.7 % (10.0-14.5); WHITE BLOOD COUNT 6.8 10^3/uL (4.3-11.0)
[2019-07-12 03:02] LABS: CALCIUM 7.8 MG/DL (8.5-10.1); CREATININE SERUM 1.11 MG/DL (0.60-1.30); MAGNESIUM 1.8 MG/DL (1.6-2.4); PHOSPHORUS 4.1 MG/DL (2.3-4.7); POTASSIUM 4.4 MMOL/L (3.6-5.0)
[2019-07-12 03:12] LABS: ABG OXYGEN SATURATION 84 % (94-100); ABG PCO2 50 MMHG (35-45); ABG PH 7.35 (7.37-7.43); ABG PO2 48 MMHG (79-93); ABG TCO2 28.9 MMOL/L (21.0-31.0)
[2019-07-12 03:23] LABS: ALLENS TEST POSITIVE; INSPIRED O2 30%; PATIENT TEMP 36.1; VENTILATOR YES
[2019-07-12] MEDS: BUMETANIDE 2.5 MG/10 ML (BUMEX) VIAL IV SCH ×2 (04:07→15:10)
--- NOTE | 2019-07-12 04:55 | Pulmonary Progress Note ---
Subjective Time Seen by a Provider: 04:54 Subjective/Events-last exam Pt is s/p tracheostomy currently sedated on vent. Sepsis Event Evaluation Height, Weight, BMI Height: 5'4.00" Weight: 246lbs. 2.0oz. 111.710510vo; 44.00 BMI Method:Stated Exam Exam Vital Signs Date Time Temp Pulse Resp B/P (MAP) Pulse Ox O2 Delivery O2 Flow Rate FiO2 07/12/19 04:00 80 20 132/93 (106) 100 Mechanical Ventilator 30.00 07/12/19 03:50 95 Mechanical Ventilator 30 07/12/19 03:00 36.1 Mechanical Ventilator 30.00 07/12/19 02:32 Mechanical Ventilator 35.00 07/12/19 02:30 Mechanical Ventilator 35.00 07/12/19 02:28 71 18 98 40 07/12/19 02:26 71 18 98 40 07/12/19 02:00 70 14 113/60 (77) 98 Mechanical Ventilator 40.00 07/12/19 01:00 71 07/12/19 01:00 71 17 102/56 (71) 99 Mechanical Ventilator 40.00 07/12/19 00:00 79 17 114/64 (81) 99 Mechanical Ventilator 40.00 07/11/19 23:55 99 Mechanical Ventilator 40 07/11/19 23:45 36.0 Mechanical Ventilator 40.00 07/11/19 23:00 79 17 138/81 (100) 97 Mechanical Ventilator 40.00 07/11/19 22:35 71 18 120/62 99 Mechanical Ventilator 40.00 07/11/19 22:00 75 18 128/64 (85) 100 Mechanical Ventilator 40.00 07/11/19 21:45 73 18 98 40 07/11/19 21:00 72 18 155/97 (116) 98 Mechanical Ventilator 40.00 07/11/19 20:00 68 17 153/80 (104) 98 Mechanical Ventilator 40.00 07/11/19 19:43 73 17 154/86 98 Mechanical Ventilator 40.00 07/11/19 19:40 98 Mechanical Ventilator 40 07/11/19 19:25 35.7 Mechanical Ventilator 40.00 07/11/19 19:00 74 07/11/19 19:00 75 17 159/80 (106) 98 Mechanical Ventilator 40.00 07/11/19 18:40 Mechanical Ventilator 40.00 07/11/19 18:28 69 18 100 50 07/11/19 18:00 63 17 154/84 (107) 100 Mechanical Ventilator 50.00 07/11/19 17:55 162/88 07/11/19 17:00 70 20 149/88 (108) 100 Mechanical Ventilator 50.00 07/11/19 16:00 69 18 143/70 (94) 99 Mechanical Ventilator 50.00 07/11/19 16:00 35.5 07/11/19 16:00 96 Mechanical Ventilator 70 07/11/19 15:45 36.11260 63 18 175/96 100 Mechanical Ventilator 50.00 07/11/19 15:00 63 18 175/96 (122) 100 Mechanical Ventilator 50.00 07/11/19 14:45 64 18 100 50 07/11/19 14:30 Mechanical Ventilator 50 07/11/19 14:30 57 17 160/82 (108) 100 Mechanical Ventilator 50.00 07/11/19 14:30 36.2 18 160/82 (108) 100 Mechanical Ventilator 50 07/11/19 14:25 Mechanical Ventilator 50 07/11/19 14:20 18 121/75 (90) 100 Mechanical Ventilator 50 07/11/19 14:17 Mechanical Ventilator 50 07/11/19 14:17 36.1 18 122/76 (91) 100 Mechanical Ventilator 50 07/11/19 14:00 93 24 104/74 (84) 90 Mechanical Ventilator 50.00 07/11/19 13:00 60 49 100 Mechanical Ventilator 50.00 07/11/19 12:45 96 Mechanical Ventilator 70 07/11/19 12:29 65 07/11/19 12:00 35.9 07/11/19 12:00 63 18 140/67 (91) 100 Mechanical Ventilator 50.00 07/11/19 11:00 65 18 140/71 (94) 100 Mechanical Ventilator 50.00 07/11/19 10:55 65 18 100 50 07/11/19 10:00 53 17 117/78 (91) 100 Mechanical Ventilator 50.00 07/11/19 09:41 66 18 07/11/19 09:00 65 18 127/69 (88) 100 Mechanical Ventilator 50.00 07/11/19 08:00 96 Mechanical Ventilator 70 07/11/19 08:00 76 11 103/54 (70) 99 Mechanical Ventilator 50.00 07/11/19 07:59 67 18 100 50 07/11/19 07:17 72 92 07/11/19 07:10 71 15 89 30.00 07/11/19 07:00 69 13 114/56 (75) 88 NIV Bilevel 30.00 07/11/19 07:00 71 07/11/19 06:00 75 12 108/54 (72) 89 NIV Bilevel 30.00 07/11/19 05:35 NIV Bilevel 30.00 07/11/19 05:15 71 15 96 40.00 07/11/19 05:10 NIV Bilevel 40.00 07/11/19 05:00 77 11 115/58 (77) 97 Nasal Cannula 2.00 I & O 07/12/19 07:00 Intake Total 5590 ml Output Total 945 ml Balance 4645 ml Height & Weight Height: 5'4.00" Weight: 246lbs. 2.0oz. 111.083140do; 44.00 BMI Method:Stated General Appearance: No Apparent Distress, WD/WN HEENT: Normal ENT Inspection Neck: Full Range of Motion, Normal Inspection Respiratory: Lungs Clear, No Accessory Muscle Use, No Respiratory Distress, Decreased Breath Sounds Cardiovascular: Regular Rate, Rhythm, No Murmur Capillary Refill: Less Than 3 Seconds Peripheral Pulses: 2+ Dorsalis Pedis (R), 2+ Left Dors-Pedis (L), 2+ Radial Pulses (R), 2+ Radial Pulses (L) Gastrointestinal: soft, no organomegaly Extremity: Swelling, Other Neurologic/Psychiatric: Alert, Depressed Affect Skin: Normal Color, Warm/Dry Lymphatic: No Adenopathy Results Lab Laboratory Tests 07/11/19 04:12 07/12/19 02:30 Assessment/Plan Assessment/Plan Acute on chronic respiratory failure -- worsening s/p tracheostomy -Continue ventilator care PNA with pseudomonus -- intermediate to Levaquin -Continue Levaquin/ Merrem x 14 days total -MRSA screen is positive Pulmonary edema - bumex 2 mg BID COPDAE -Solumedrol 40 IV Q 6 -Duoneb Q 4 Acute renal failure - monitor Anemia -Monitor - Lovenox Hx of Diastolic CHF grade II - -Monitor -Continue bumex Anemia -Check occult stool Thrombocytopenia -Monitor HTN -Add hydralazine ESTRELLITA BAE DO Jul 12, 2019 04:55
[2019-07-12] MEDS: MAGNESIUM 1 GM/100 ML IVPB 100 ML IV SCH (05:07)
[2019-07-12] MEDS: POTASSIUM CL 10MEQ/50ML IVPB 50 ML IV SCH (05:07)
[2019-07-12] MEDS: inSUlin ASPART (NovoLOG) 1 UNIT/0.01 ML (CHARGE PER UNIT) SC SCH ×4 (05:07→23:53)
[2019-07-12] MEDS: KCL 20 MEQ TAB (K-DUR) PO SCH (05:07)
[2019-07-12] MEDS: methylPREDNISolone 40 MG/ML (Solu-MEDROL) VIAL IV SCH ×4 (05:23→23:53)
[2019-07-12] MEDS: MEROPENEM 500 MG/SWFI 10 ML IV PUSH IV SCH ×6 (05:24→21:45)
[2019-07-12] MEDS: LEVOTHYROXINE 25 MCG (LEVOTHROID) TAB PO SCH (05:24)
[2019-07-12] MEDS: LEVOTHYROXINE 150 MCG (LEVOTHROID) TAB PO SCH (05:24)
--- NOTE | 2019-07-12 07:07 | Diagnostic Imaging Report ---
Indication: Respiratory failure Portable chest 3:33 AM There is some alveolar infiltrate present in the right lower lung. There is a tracheostomy tube in place. Right upper extremity PICC line tip projects over the SVC. There may be some left basilar atelectasis. IMPRESSION: Interval development of alveolar consolidation in the right lower lung since the previous day consistent with pneumonia. Dictated by: Dictated on workstation # [id number]
[2019-07-12] MEDS: HALOPERIDOL 5 MG/ML (HALDOL) AMP IV SCH ×2 (07:52→20:25)
[2019-07-12] MEDS: PANTOPRAZOLE 40 MG (PROTONIX) VIAL IV SCH (07:52)
[2019-07-12] MEDS: ENOXAPARIN 40 MG/0.4 ML (LOVENOX) SYR SC SCH ×2 (07:53→19:44)
[2019-07-12] MEDS: meTOprolol TARTRATE 25 MG (LOPRESSOR) TABLET PO SCH ×2 (07:53→20:25)
[2019-07-12] MEDS: amLODIPine 5 MG (NORVASC) TAB PO SCH (07:53)
--- NOTE | 2019-07-12 09:14 | Progress Note - Surgery ---
EVERETT MCQUEEN,MED STUDENT 07/12/19 0914: Subjective Date Seen by a Provider: Jul 12, 2019 Time Seen by a Provider: 08:46 Subjective/Events-last exam Patient is sedated and on a vent. Tracheostomy is patent and working with no signs of infection around the ostomy. Objective Exam Vital Signs Date Time Temp Pulse Resp B/P (MAP) Pulse Ox O2 Delivery O2 Flow Rate FiO2 07/12/19 08:00 79 15 125/67 (86) 100 Mechanical Ventilator 30.00 07/12/19 07:52 122/73 07/12/19 07:47 35.5 07/12/19 07:27 80 18 100 40 07/12/19 07:16 80 18 100 40 07/12/19 07:00 66 8 124/102 (109) 100 Mechanical Ventilator 30.00 07/12/19 07:00 77 07/12/19 06:00 74 16 112/86 (95) 100 Mechanical Ventilator 30.00 07/12/19 05:00 75 18 115/68 (84) 100 Mechanical Ventilator 30.00 07/12/19 04:00 80 20 132/93 (106) 100 Mechanical Ventilator 30.00 07/12/19 03:50 95 Mechanical Ventilator 30 07/12/19 03:00 36.1 Mechanical Ventilator 30.00 07/12/19 02:32 Mechanical Ventilator 35.00 07/12/19 02:30 Mechanical Ventilator 35.00 07/12/19 02:28 71 18 98 40 07/12/19 02:26 71 18 98 40 07/12/19 02:00 70 14 113/60 (77) 98 Mechanical Ventilator 40.00 07/12/19 01:00 71 07/12/19 01:00 71 17 102/56 (71) 99 Mechanical Ventilator 40.00 07/12/19 00:00 79 17 114/64 (81) 99 Mechanical Ventilator 40.00 07/11/19 23:55 99 Mechanical Ventilator 40 07/11/19 23:45 36.0 Mechanical Ventilator 40.00 07/11/19 23:00 79 17 138/81 (100) 97 Mechanical Ventilator 40.00 07/11/19 22:35 71 18 120/62 99 Mechanical Ventilator 40.00 07/11/19 22:00 75 18 128/64 (85) 100 Mechanical Ventilator 40.00 07/11/19 21:45 73 18 98 40 07/11/19 21:00 72 18 155/97 (116) 98 Mechanical Ventilator 40.00 07/11/19 20:00 68 17 153/80 (104) 98 Mechanical Ventilator 40.00 07/11/19 19:43 73 17 154/86 98 Mechanical Ventilator 40.00 07/11/19 19:40 98 Mechanical Ventilator 40 07/11/19 19:25 35.7 Mechanical Ventilator 40.00 07/11/19 19:00 74 07/11/19 19:00 75 17 159/80 (106) 98 Mechanical Ventilator 40.00 07/11/19 18:40 Mechanical Ventilator 40.00 07/11/19 18:28 69 18 100 50 07/11/19 18:00 63 17 154/84 (107) 100 Mechanical Ventilator 50.00 07/11/19 17:55 162/88 07/11/19 17:00 70 20 149/88 (108) 100 Mechanical Ventilator 50.00 07/11/19 16:00 69 18 143/70 (94) 99 Mechanical Ventilator 50.00 07/11/19 16:00 35.5 07/11/19 16:00 96 Mechanical Ventilator 70 07/11/19 15:45 36.53972 63 18 175/96 100 Mechanical Ventilator 50.00 07/11/19 15:00 63 18 175/96 (122) 100 Mechanical Ventilator 50.00 07/11/19 14:45 64 18 100 50 07/11/19 14:30 Mechanical Ventilator 50 07/11/19 14:30 57 17 160/82 (108) 100 Mechanical Ventilator 50.00 07/11/19 14:30 36.2 18 160/82 (108) 100 Mechanical Ventilator 50 07/11/19 14:25 Mechanical Ventilator 50 07/11/19 14:20 18 121/75 (90) 100 Mechanical Ventilator 50 07/11/19 14:17 Mechanical Ventilator 50 07/11/19 14:17 36.1 18 122/76 (91) 100 Mechanical Ventilator 50 07/11/19 14:00 93 24 104/74 (84) 90 Mechanical Ventilator 50.00 07/11/19 13:00 60 49 100 Mechanical Ventilator 50.00 07/11/19 12:45 96 Mechanical Ventilator 70 07/11/19 12:29 65 07/11/19 12:00 35.9 07/11/19 12:00 63 18 140/67 (91) 100 Mechanical Ventilator 50.00 07/11/19 11:00 65 18 140/71 (94) 100 Mechanical Ventilator 50.00 07/11/19 10:55 65 18 100 50 07/11/19 10:00 53 17 117/78 (91) 100 Mechanical Ventilator 50.00 07/11/19 09:41 66 18 I & O 07/12/19 07:00 Intake Total 5620 ml Output Total 1995 ml Balance 3625 ml Capillary Refill : Less Than 3 SecondsLess Than 3 Seconds General Appearance: No Apparent Distress, Chronically ill, Obese, Other (sedated and on vent) Neck: Other (tracheostomy patent ) Respiratory: Lungs Clear, No Accessory Muscle Use, No Respiratory Distress Cardiovascular: Regular Rate, Rhythm, No Murmur Peripheral Pulses: 2+ Dorsalis Pedis (R), 2+ Left Dors-Pedis (L), 2+ Radial Pulses (R), 2+ Radial Pulses (L) Gastrointestinal: soft, no organomegaly Extremity: Pedal Edema, Swelling Neurologic/Psychiatric: Other (sedated) Skin: Normal Color, Warm/Dry Lymphatic: No Adenopathy Results Lab Laboratory Tests 07/11/19 11:46: Glucometer 54*L 07/11/19 14:46: Glucometer 97 07/11/19 17:37: Glucometer 92 07/11/19 20:59: Glucometer 138H 07/11/19 23:40: Glucometer 84 07/12/19 02:30: White Blood Count 6.8, Red Blood Count 3.22L, Hemoglobin 9.1L, Hematocrit 31L, Mean Corpuscular Volume 97, Mean Corpuscular Hemoglobin 28, Mean Corpuscular Hemoglobin Concent 29L, Red Cell Distribution Width 16.7H, Platelet Count 118L, Mean Platelet Volume 11.1H, Neutrophils (%) (Auto) 93H, Lymphocytes (%) (Auto) 3L, Monocytes (%) (Auto) 4, Eosinophils (%) (Auto) 0, Basophils (%) (Auto) 0, Neutrophils # (Auto) 6.3, Lymphocytes # (Auto) 0.2L, Monocytes # (Auto) 0.3, Eosinophils # (Auto) 0.0, Basophils # (Auto) 0.0, Sodium Level 142, Potassium Level 4.4, Chloride Level 106, Carbon Dioxide Level 22, Anion Gap 14, Blood Urea Nitrogen 39H, Creatinine 1.11, Estimat Glomerular Filtration Rate 49, BUN/Creatinine Ratio 35, Glucose Level 91, Calcium Level 7.8L, Phosphorus Level 4.1, Magnesium Level 1.8, Triglycerides Level 493#H 07/12/19 03:07: Blood Gas Puncture Site RIGHT RADIAL, Blood Gas Patient Temperature 36.1, Arterial Blood pH 7.35L, Arterial Blood Partial Pressure CO2 50H, Arterial Blood Partial Pressure O2 48L, Arterial Blood HCO3 27, Arterial Blood Total CO2 28.9, Arterial Blood Oxygen Saturation 84L, Arterial Blood Base Excess 2.0, Clif Test POSITIVE, Blood Gas Ventilator Setting YES, Blood Gas Inspired Oxygen 30% Microbiology 07/11/19 Gram Stain - Final, Resulted 07/11/19 Sputum Culture - Preliminary, Resulted Culture In Progress 06/26/19 Blood Culture - Final, Complete No growth Assessment/Plan Assessment/Plan Assessment/Plan Acute and chronic respiratory failure. COPD with acute exacerbation. Acute renal failure. Pneumonia Thrombocytopenia. Hypertension. Hypoxia. Tracheotomy preformed yesterday. Tracheostomy is patent. No other surgerical interventions are planned at this time. Surgery is signing, but call is we are needed. Clinical Quality Measures DVT/VTE Risk/Contraindication: Risk Factor Score Per Nursin RFS Level Per Nursing on Admit: 4+=Very High BALJIT LEMUS DO 07/12/19 2012: Subjective Subjective/Events-last exam Sedated on vent. Patient no issues with tracheostomy. No family at bedside. Objective Exam General Appearance: Other (sedated and on vent) HEENT: PERRL/EOMI Neck: Supple, Other (tracheostomy no apparent issues visualized) Respiratory: Lungs Clear Cardiovascular: Regular Rate, Rhythm Gastrointestinal: soft, no organomegaly Extremity: Pedal Edema, Swelling Neurologic/Psychiatric: Other (sedated) Skin: Normal Color, Warm/Dry Lymphatic: No Adenopathy Assessment/Plan Assessment/Plan Assessment/Plan Acute and chronic respiratory failure. COPD with acute exacerbation. Acute renal failure. Pneumonia Thrombocytopenia. Hypertension. Hypoxia. Trach without any issues at this time. Will sign off, call if needed. Supervisory-Addendum Brief Verification & Attestation Participated in pt care: history, MDM, physical Personally performed: exam, history, MDM, supervision of care Care discussed with: Medical Student Procedures: n/a Results interpretation: Verified all documentation Verification and Attestation of Medical Student E/M Service A medical student performed and documented this service in my presence. I reviewed and verified all information documented by the medical student and made modifications to such information, when appropriate. I personally performed the physical exam and medical decision making. Baljit Lemus, Jul 12, 2019,20:12 EVERETT MCQUEEN,MED STUDENT Jul 12, 2019 09:14 BALJIT LEMUS DO Jul 12, 2019 20:12
--- NOTE | 2019-07-12 12:44 | Progress Note - Hospitalist ---
Subjective HPI/CC On Admission Date Seen by Provider: Jul 12, 2019 Time Seen by Provider: 08:40 Pt is off BiPAP. Reports not feeling well. States she wants to get better but does not want to get out of bed. States she told PT not to come back until Sunday and she's in a "confrontational mood." Discussed the importance of getting out of bed and movement but she again declines. Subjective/Events-last exam she is sedated and mechanically ventilated. There is no family at bedside. Objective Exam Vital Signs Vital Signs Date Time Temp Pulse Resp B/P (MAP) Pulse Ox O2 Delivery O2 Flow Rate FiO2 07/12/19 12:14 109/62 07/12/19 12:00 75 18 100 Mechanical Ventilator 30.00 07/12/19 12:00 35.9 07/12/19 11:59 30 Capillary Refill : Less Than 3 SecondsLess Than 3 Seconds General Appearance: No Apparent Distress, WD/WN, Other (sedated and mechanically ventilated) Neck: Other (tracheostomy in place) Respiratory: Other (coarse breath sounds, mechanically ventilated) Cardiovascular: Regular Rate, Rhythm, No Edema, No Murmur Gastrointestinal: Normal Bowel Sounds, Non Tender, Soft Extremity: Normal Inspection, Non Tender, Pedal Edema Neurologic/Psychiatric: Other (and sedated) Results/Procedures Lab Laboratory Tests 07/12/19 02:30 Patient resulted labs reviewed. Imaging: Reviewed Imaging Report Assessment/Plan Assessment and Plan Assess & Plan/Chief Complaint Acute on chronic respiratory failure with hypoxia and hypercapnia Pneumonia Pulmonary edema COPD with acute exacerbation Tracheostomy in place, mechanically ventilated surgery signing off at this time Continue antibiotics Continue steroids Continue Bumex Pulmonology following anemia Stable DVT prophylaxis: Lovenox Diagnosis/Problems Diagnosis/Problems (1) Acute on chronic respiratory failure with hypoxia and hypercapnia Status: Acute Clinical Quality Measures DVT/VTE Risk/Contraindication: Risk Factor Score Per Nursin RFS Level Per Nursing on Admit: 4+=Very High MARLON ARMIJO MD Jul 12, 2019 12:44
--- NOTE | 2019-07-12 16:20 | Cardiology Progress Note ---
Cardiology SOAP Progress Note Subjective: Tracheostomy, ventilated Objective: I&O/Vital Signs 07/12/19 07/12/19 07/12/19 07/12/19 05:00 06:00 07:00 07:00 Pulse 75 74 77 66 Resp 18 16 8 B/P (MAP) 115/68 (84) 112/86 (95) 124/102 (109) Pulse Ox 100 100 100 O2 Delivery Mechanical Ventilator Mechanical Ventilator Mechanical Ventilator O2 Flow Rate 30.00 30.00 30.00 07/12/19 07/12/19 07/12/19 07/12/19 07:16 07:27 07:47 07:52 Temp 35.5 Pulse 80 80 Resp 18 18 B/P (MAP) 122/73 Pulse Ox 100 100 FiO2 40 40 07/12/19 07/12/19 07/12/19 07/12/19 08:00 08:00 09:00 10:00 Pulse 79 78 69 Resp 15 18 17 B/P (MAP) 125/67 (86) 125/77 (93) 126/68 (87) Pulse Ox 100 100 100 100 O2 Delivery Mechanical Ventilator Mechanical Ventilator Mechanical Ventilator Mechanical Ventilator O2 Flow Rate 30.00 30.00 30.00 FiO2 30 07/12/19 07/12/19 07/12/19 07/12/19 10:15 11:00 11:59 12:00 Temp 35.9 Pulse 70 80 Resp 18 16 B/P (MAP) 115/66 (82) Pulse Ox 100 100 100 O2 Delivery Mechanical Ventilator Mechanical Ventilator O2 Flow Rate 30.00 FiO2 30 30 07/12/19 07/12/19 07/12/19 07/12/19 12:00 12:14 13:00 13:00 Pulse 75 78 85 Resp 18 17 B/P (MAP) 109/62 (78) 109/62 109/79 (89) Pulse Ox 100 100 O2 Delivery Mechanical Ventilator Mechanical Ventilator O2 Flow Rate 30.00 30.00 07/12/19 07/12/19 07/12/19 07/12/19 14:00 14:11 15:00 15:01 Pulse 78 67 82 Resp 17 18 14 B/P (MAP) 123/65 (84) 128/59 (82) Pulse Ox 100 100 93 91 O2 Delivery Mechanical Ventilator Mechanical Ventilator Mechanical Ventilator O2 Flow Rate 30.00 30.00 FiO2 30 30 07/12/19 16:00 Pulse 85 B/P (MAP) 127/62 (83) Pulse Ox 93 O2 Delivery Mechanical Ventilator O2 Flow Rate 30.00 07/12/19 00:00 Intake Total 4240 ml Output Total 750 ml Balance 3490 ml Weight (Pounds): 246 Weight (Ounces): 2.0 Weight (Calculated Kilograms): 111.359654 Constitutional: well-developed, well-nourished Respiratory: chest is bilaterally symmetric, other (coarse breath sounds bilaterally) Cardiovascular: regular rate-rhythm, S1 and S2 Gastrointestional: soft, audible bowel sounds Extremities: normal range of motion, non-tender, normal inspection, no lower extremity edema bilateral Neurologic/Psychiatric: grossly intact Skin: normal color Results/Procedures: Labs Laboratory Tests 07/11/19 17:37: Glucometer 92 07/11/19 20:59: Glucometer 138H 07/11/19 23:40: Glucometer 84 07/12/19 02:30: White Blood Count 6.8, Red Blood Count 3.22L, Hemoglobin 9.1L, Hematocrit 31L, Mean Corpuscular Volume 97, Mean Corpuscular Hemoglobin 28, Mean Corpuscular Hemoglobin Concent 29L, Red Cell Distribution Width 16.7H, Platelet Count 118L, Mean Platelet Volume 11.1H, Neutrophils (%) (Auto) 93H, Lymphocytes (%) (Auto) 3L, Monocytes (%) (Auto) 4, Eosinophils (%) (Auto) 0, Basophils (%) (Auto) 0, Neutrophils # (Auto) 6.3, Lymphocytes # (Auto) 0.2L, Monocytes # (Auto) 0.3, Eosinophils # (Auto) 0.0, Basophils # (Auto) 0.0, Sodium Level 142, Potassium Level 4.4, Chloride Level 106, Carbon Dioxide Level 22, Anion Gap 14, Blood Urea Nitrogen 39H, Creatinine 1.11, Estimat Glomerular Filtration Rate 49, BUN/Creatinine Ratio 35, Glucose Level 91, Calcium Level 7.8L, Phosphorus Level 4.1, Magnesium Level 1.8, Triglycerides Level 493#H 07/12/19 03:07: Blood Gas Puncture Site RIGHT RADIAL, Blood Gas Patient Temperature 36.1, Arterial Blood pH 7.35L, Arterial Blood Partial Pressure CO2 50H, Arterial Blood Partial Pressure O2 48L, Arterial Blood HCO3 27, Arterial Blood Total CO2 28.9, Arterial Blood Oxygen Saturation 84L, Arterial Blood Base Excess 2.0, Clif Test POSITIVE, Blood Gas Ventilator Setting YES, Blood Gas Inspired Oxygen 30% 07/12/19 11:35: Glucometer 80 Microbiology 07/11/19 Gram Stain - Final, Complete 07/11/19 Sputum Culture - Final, Complete No growth 06/26/19 Blood Culture - Final, Complete No growth A/P: Assessment/Dx: Acute respiratory failure COPD Pneumonia Sinus bradycardia Plan: Acute on chronic respiratory failure, acute exacerbation of COPD, intubated for the second time during her hospital stay, for possible tracheostomy today, managed by rigger helper Acute exacerbation of COPD, worsening dyspnea and hypoxemia, ventilator dependent Bradycardia, sinus bradycardia with long sinus pauses probably secondary to severe hypoxemia, no known previous cardiac history, heart rate is better at this time. Continue to monitor Acute renal failure, improved, renal functions are normal. Continue to monitor Hypertension, currently on sedation. Monitor blood pressure closely Thank you for your consultation. Please call me if you have any questions. Richard Spaulding MD, FACP, FACC, FSCAI, FHRS, CCDS Interventional Cardiology Cardiac Electrophysiology Vascular Medicine and Endovascular Interventions Heron SPAULDING MD Jul 12, 2019 16:19
--- NOTE | 2019-07-12 18:22 | NUR ---
zehra bedoya in room, obtorator on vent Addendum: 07/12/19 at 1822 by MIGDALIA THEODORE RT Amended: Links added.
[2019-07-12] MEDS: MELATONIN 3 MG TABLET PO SCH (20:25)
--- NOTE | 2019-07-12 21:00 | NUR ---
Non admin melatonin, patient sedated on the vent.
[2019-07-13] VITALS (30 sets, daily range): BP systolic 98–171; BP diastolic 60–108
[2019-07-13] MEDS: BUMETANIDE 2.5 MG/10 ML (BUMEX) VIAL IV SCH ×2 (03:19→15:12)
[2019-07-13] MEDS: LACTATED RINGERS 1,000 ML IV SCH ×2 (03:20→13:09)
[2019-07-13] MEDS: PROPOFOL DRIP (ICU) 100 ML IV SCH ×6 (03:20→20:58)
[2019-07-13 03:24] LABS: BASOPHILS % (AUTO) 0 % (0-10); EOSINOPHILS % (AUTO) 0 % (0-10); HEMATOCRIT 29 % (35-52); HEMOGLOBIN 8.7 G/DL (11.5-16.0); LYMPHOCYTES # (AUTO) 0.3 X 10^3 (1.0-4.0); LYMPHOCYTES % (AUTO) 3 % (12-44); MEAN CORPUSCULAR HEMOGLOBIN 28 PG (25-34); MEAN CORPUSCULAR HGB CONC 30 G/DL (32-36); MEAN CORPUSCULAR VOLUME 95 FL (80-99); MEAN PLATELET VOLUME 11.5 FL (7.4-10.4); MONOCYTES # (AUTO) 0.4 X 10^3 (0.0-1.0); MONOCYTES % (AUTO) 5 % (0-12); NEUTROPHILS % (AUTO) 92 % (42-75); PLATELET COUNT 123 10^3/uL (130-400); RED CELL DISTRIBUTION WIDTH 17.2 % (10.0-14.5); WHITE BLOOD COUNT 7.6 10^3/uL (4.3-11.0)
[2019-07-13 03:25] LABS: ABG BASE EXCESS 3.8 MMOL/L (-2.5-2.5); ABG OXYGEN SATURATION 80 % (94-100); ABG PCO2 49 MMHG (35-45); ABG PH 7.39 (7.37-7.43); ABG PO2 48 MMHG (79-93); ABG TCO2 30.2 MMOL/L (21.0-31.0)
[2019-07-13 03:29] LABS: ALLENS TEST POSITIVE; INSPIRED O2 30%; PATIENT TEMP 36.3; VENTILATOR YES
[2019-07-13] MEDS: RT-ALBUTEROL/IPRATROPIUM 3 ML (DUONEB) VIAL INH SCH ×6 (03:39→21:51)
[2019-07-13 03:49] LABS: CALCIUM 7.7 MG/DL (8.5-10.1); CREATININE SERUM 0.99 MG/DL (0.60-1.30); MAGNESIUM 1.8 MG/DL (1.6-2.4); POTASSIUM 4.3 MMOL/L (3.6-5.0)
[2019-07-13] MEDS: POTASSIUM CL 10MEQ/50ML IVPB 50 ML IV SCH (05:23)
[2019-07-13] MEDS: MAGNESIUM 1 GM/100 ML IVPB 100 ML IV SCH (05:23)
[2019-07-13] MEDS: inSUlin ASPART (NovoLOG) 1 UNIT/0.01 ML (CHARGE PER UNIT) SC SCH ×3 (05:24→18:13)
[2019-07-13] MEDS: KCL 20 MEQ TAB (K-DUR) PO SCH (05:24)
[2019-07-13] MEDS: LEVOTHYROXINE 25 MCG (LEVOTHROID) TAB PO SCH (05:53)
[2019-07-13] MEDS: MEROPENEM 500 MG/SWFI 10 ML IV PUSH IV SCH ×6 (05:53→21:17)
[2019-07-13] MEDS: methylPREDNISolone 40 MG/ML (Solu-MEDROL) VIAL IV SCH ×3 (05:53→17:23)
[2019-07-13] MEDS: LEVOTHYROXINE 150 MCG (LEVOTHROID) TAB PO SCH (05:53)
--- NOTE | 2019-07-13 07:32 | Pulmonary Progress Note ---
Subjective Time Seen by a Provider: 06:33 Subjective/Events-last exam Sedated on vent Sepsis Event Evaluation Height, Weight, BMI Height: 5'4.00" Weight: 246lbs. 2.0oz. 111.492307pa; 44.00 BMI Method:Stated Exam Exam Vital Signs Date Time Temp Pulse Resp B/P (MAP) Pulse Ox O2 Delivery O2 Flow Rate FiO2 07/13/19 06:00 93 18 126/67 (86) 92 Mechanical Ventilator 30.00 07/13/19 05:00 100 18 125/65 (85) 91 Mechanical Ventilator 30.00 07/13/19 04:06 89 19 5 30 07/13/19 04:00 84 17 112/75 (87) 92 Mechanical Ventilator 30.00 07/13/19 03:30 92 Mechanical Ventilator 30 07/13/19 03:25 36.6 07/13/19 03:20 77 18 98/83 93 Mechanical Ventilator 30.00 07/13/19 03:00 75 18 98/83 (88) 93 Mechanical Ventilator 30.00 07/13/19 02:00 79 17 122/77 (92) 93 Mechanical Ventilator 30.00 07/13/19 01:00 89 07/13/19 01:00 83 17 123/64 (83) 94 Mechanical Ventilator 30.00 07/13/19 00:00 93 Mechanical Ventilator 30 07/13/19 00:00 83 18 120/64 (82) 92 Mechanical Ventilator 30.00 07/12/19 23:59 Mechanical Ventilator 30.00 07/12/19 23:50 36.4 Mechanical Ventilator 30.00 07/12/19 23:00 91 17 117/64 (81) 91 Mechanical Ventilator 30.00 07/12/19 22:09 78 18 90 30 07/12/19 22:00 76 22 121/67 (85) 91 Mechanical Ventilator 30.00 07/12/19 21:00 87 19 116/78 (91) 92 Mechanical Ventilator 30.00 07/12/19 20:00 87 18 114/67 (83) 95 Mechanical Ventilator 30.00 07/12/19 20:00 35.9 07/12/19 19:45 85 18 119/67 92 Mechanical Ventilator 30.00 07/12/19 19:35 92 Mechanical Ventilator 30 07/12/19 19:30 36.0 Mechanical Ventilator 30.00 07/12/19 19:00 89 07/12/19 19:00 89 14 122/67 (85) 93 Mechanical Ventilator 30.00 07/12/19 18:18 75 18 92 30 07/12/19 18:00 78 17 113/59 (77) 93 Mechanical Ventilator 30.00 07/12/19 17:00 78 19 110/64 (79) 92 Mechanical Ventilator 30.00 07/12/19 16:53 114/55 07/12/19 16:00 36.1 07/12/19 16:00 85 127/62 (83) 93 Mechanical Ventilator 30.00 07/12/19 15:01 91 Mechanical Ventilator 30 07/12/19 15:00 82 14 128/59 (82) 93 Mechanical Ventilator 30.00 07/12/19 14:11 67 18 100 30 07/12/19 14:00 78 17 123/65 (84) 100 Mechanical Ventilator 30.00 07/12/19 13:00 85 07/12/19 13:00 78 17 109/79 (89) 100 Mechanical Ventilator 30.00 07/12/19 12:14 109/62 07/12/19 12:00 75 18 109/62 (78) 100 Mechanical Ventilator 30.00 07/12/19 12:00 35.9 07/12/19 11:59 100 Mechanical Ventilator 30 07/12/19 11:00 80 16 115/66 (82) 100 Mechanical Ventilator 30.00 07/12/19 10:15 70 18 100 30 07/12/19 10:00 69 17 126/68 (87) 100 Mechanical Ventilator 30.00 07/12/19 09:00 78 18 125/77 (93) 100 Mechanical Ventilator 30.00 07/12/19 08:00 100 Mechanical Ventilator 30 07/12/19 08:00 79 15 125/67 (86) 100 Mechanical Ventilator 30.00 07/12/19 07:52 122/73 07/12/19 07:47 35.5 07/12/19 07:27 80 18 100 40 I & O 07/13/19 07:00 Intake Total 4770 ml Output Total 3675 ml Balance 1095 ml Height & Weight Height: 5'4.00" Weight: 246lbs. 2.0oz. 111.837128vk; 44.00 BMI Method:Stated General Appearance: Other (sedated and on vent) HEENT: PERRL/EOMI Neck: Supple, Other (tracheostomy no apparent issues visualized) Respiratory: Lungs Clear Cardiovascular: Regular Rate, Rhythm Capillary Refill: Less Than 3 Seconds Peripheral Pulses: 2+ Dorsalis Pedis (R), 2+ Left Dors-Pedis (L), 2+ Radial Pulses (R), 2+ Radial Pulses (L) Gastrointestinal: soft, no organomegaly Extremity: Pedal Edema, Swelling Neurologic/Psychiatric: Other (sedated) Skin: Normal Color, Warm/Dry Lymphatic: No Adenopathy Results Lab Laboratory Tests 07/12/19 02:30 07/13/19 03:17 Assessment/Plan Assessment/Plan Acute on chronic respiratory failure -- s/p tracheostomy -Continue ventilator care -Hold weaning secondary to worsening CXR. Will decrease IVF and give Bumex -Anticipate transfer to [facility] tomorrow AM. -CXR appears worse -Continue Merrem PNA with pseudomonus -- intermediate to Levaquin -Continue Merrem x 14 days total -MRSA screen is positive Pulmonary edema - bumex 2 mg BID COPDAE -Solumedrol 40 IV Q 6 -Duoneb Q 4 Acute renal failure - monitor Anemia -Monitor - Lovenox Hx of Diastolic CHF grade II - -Monitor -Continue bumex Anemia -Check occult stool -RN states pt is having vaginal bleeding, tracheostomy bleeding will change lovenox to daily Thrombocytopenia -Monitor HTN -Add hydralazine PRN ESTRELLITA PITT DO Jul 13, 2019 07:32
[2019-07-13] MEDS: RT-BUDESONIDE NEBS 0.5 MG/2ML (PULMICORT) AMP INH SCH ×2 (07:37→18:44)
--- NOTE | 2019-07-13 07:41 | Diagnostic Imaging Report ---
Indication: Dyspnea. Comparison: 07/12/2019. Discussion: Single portable upright view of the chest was obtained. Infiltrates within the right lower lobe are stable. Tracheostomy appliance is stable. Right upper extremity PICC line is stable. Mild cardiomegaly is stable. No pneumothorax or osseous abnormality. Impression: 1. Persistent infiltrate within the right lower lobe. Dictated by: Dictated on workstation # [id number]
[2019-07-13] MEDS: ENOXAPARIN 40 MG/0.4 ML (LOVENOX) SYR SC SCH ×2 (08:45→09:00)
[2019-07-13] MEDS: HALOPERIDOL 5 MG/ML (HALDOL) AMP IV SCH ×2 (08:46→21:14)
[2019-07-13] MEDS: amLODIPine 5 MG (NORVASC) TAB PO SCH (08:46)
[2019-07-13] MEDS: meTOprolol TARTRATE 25 MG (LOPRESSOR) TABLET PO SCH ×2 (08:46→21:14)
[2019-07-13] MEDS: PANTOPRAZOLE 40 MG (PROTONIX) VIAL IV SCH (08:46)
--- NOTE | 2019-07-13 10:23 | Progress Note - Hospitalist ---
Subjective HPI/CC On Admission Date Seen by Provider: Jul 13, 2019 Time Seen by Provider: 07:50 shortness of breath Subjective/Events-last exam She is sedated and mechanically ventilated. There is no family at the bedside. Objective Exam Vital Signs Vital Signs Date Time Temp Pulse Resp B/P (MAP) Pulse Ox O2 Delivery O2 Flow Rate FiO2 07/13/19 09:44 81 18 90 30 07/13/19 09:00 141/76 (97) Mechanical Ventilator 30.00 07/13/19 08:04 36.2 Capillary Refill : Less Than 3 SecondsLess Than 3 Seconds General Appearance: No Apparent Distress, WD/WN, Obese Neck: Supple, Other (Tracheostomy in place) Respiratory: Lungs Clear, Normal Breath Sounds, No Respiratory Distress, Other (Mechanically ventilated) Cardiovascular: Regular Rate, Rhythm, No Murmur Gastrointestinal: Normal Bowel Sounds, Non Tender, Soft Extremity: Normal Inspection, Pedal Edema Neurologic/Psychiatric: Other (And sedated) Skin: Normal Color, Warm/Dry Results/Procedures Lab Laboratory Tests 07/13/19 03:17 Patient resulted labs reviewed. Imaging: Reviewed Imaging Report Assessment/Plan Assessment and Plan Assess & Plan/Chief Complaint Acute on chronic respiratory failure with hypoxia and hypercapnia Pneumonia Pulmonary edema COPD with acute exacerbation Tracheostomy in place, mechanically ventilated Continue antibiotics Continue steroids Continue Bumex Pulmonology following anemia Stable, continue to monitor DVT prophylaxis: Lovenox Diagnosis/Problems Diagnosis/Problems (1) Acute on chronic respiratory failure with hypoxia and hypercapnia Status: Acute Clinical Quality Measures DVT/VTE Risk/Contraindication: Risk Factor Score Per Nursin RFS Level Per Nursing on Admit: 4+=Very High MARLON ARMIJO MD Jul 13, 2019 10:23
--- NOTE | 2019-07-13 14:00 | Cardiology Progress Note ---
Cardiology SOAP Progress Note Subjective: Tracheostomy/mechanical ventilation. Objective: I&O/Vital Signs 07/13/19 07/13/19 07/13/19 07/13/19 02:00 03:00 03:20 03:25 Temp 36.6 Pulse 79 75 77 Resp 17 18 18 B/P (MAP) 122/77 (92) 98/83 (88) 98/83 Pulse Ox 93 93 93 O2 Delivery Mechanical Ventilator Mechanical Ventilator Mechanical Ventilator O2 Flow Rate 30.00 30.00 30.00 07/13/19 07/13/19 07/13/19 07/13/19 03:30 04:00 04:06 05:00 Pulse 84 89 100 Resp 17 19 18 B/P (MAP) 112/75 (87) 125/65 (85) Pulse Ox 92 92 5 91 O2 Delivery Mechanical Ventilator Mechanical Ventilator Mechanical Ventilator O2 Flow Rate 30.00 30.00 FiO2 30 30 07/13/19 07/13/19 07/13/19 07/13/19 06:00 07:00 07:00 07:26 Pulse 93 86 84 Resp 18 18 B/P (MAP) 126/67 (86) 129/75 (93) 129/75 Pulse Ox 92 92 O2 Delivery Mechanical Ventilator Mechanical Ventilator Mechanical Ventilator O2 Flow Rate 30.00 30.00 30.00 07/13/19 07/13/19 07/13/19 07/13/19 07:27 07:38 08:00 08:00 Temp 36.3 Pulse 85 89 Resp 18 15 B/P (MAP) 133/78 (96) Pulse Ox 91 92 91 O2 Delivery Mechanical Ventilator Mechanical Ventilator Mechanical Ventilator O2 Flow Rate 40.00 30.00 FiO2 30 30 07/13/19 07/13/19 07/13/19 07/13/19 08:04 09:00 09:44 10:00 Temp 36.2 Pulse 88 81 86 Resp 8 18 18 B/P (MAP) 141/76 (97) 129/95 (106) Pulse Ox 91 90 91 O2 Delivery Mechanical Ventilator Mechanical Ventilator O2 Flow Rate 30.00 30.00 FiO2 30 07/13/19 07/13/19 07/13/19 07/13/19 11:00 11:05 11:10 12:00 Temp 36.0 Pulse 93 Resp 18 B/P (MAP) 146/108 (121) 146/108 Pulse Ox 91 92 O2 Delivery Mechanical Ventilator Mechanical Ventilator O2 Flow Rate 30.00 FiO2 30 07/13/19 07/13/19 12:00 13:49 Pulse 85 82 Resp 17 18 B/P (MAP) 151/77 (101) Pulse Ox 91 91 O2 Delivery Mechanical Ventilator O2 Flow Rate 30.00 FiO2 30 07/13/19 00:00 Intake Total 2450 ml Output Total 1525 ml Balance 925 ml Weight (Pounds): 246 Weight (Ounces): 2.0 Weight (Calculated Kilograms): 111.086111 Constitutional: well-developed, well-nourished Respiratory: chest is bilaterally symmetric, other Cardiovascular: regular rate-rhythm, S1 and S2 Gastrointestional: soft, audible bowel sounds Extremities: normal range of motion, non-tender, normal inspection, no lower extremity edema bilateral Neurologic/Psychiatric: grossly intact Skin: normal color Results/Procedures: Labs Laboratory Tests 07/12/19 18:00: Glucometer 71 07/12/19 23:50: Glucometer 93 07/13/19 03:17: White Blood Count 7.6, Red Blood Count 3.10L, Hemoglobin 8.7L, Hematocrit 29L, Mean Corpuscular Volume 95, Mean Corpuscular Hemoglobin 28, Mean Corpuscular H emoglobin Concent 30L, Red Cell Distribution Width 17.2H, Platelet Count 123L, Mean Platelet Volume 11.5H, Neutrophils (%) (Auto) 92H, Lymphocytes (%) (Auto) 3L, Monocytes (%) (Auto) 5, Eosinophils (%) (Auto) 0, Basophils (%) (Auto) 0, Neutrophils # (Auto) 7.0, Lymphocytes # (Auto) 0.3L, Monocytes # (Auto) 0.4, Eosinophils # (Auto) 0.0, Basophils # (Auto) 0.0, Sodium Level 144, Potassium Level 4.3, Chloride Level 107, Carbon Dioxide Level 23, Anion Gap 14, Blood Urea Nitrogen 37H, Creatinine 0.99, Estimat Glomerular Filtration Rate 55, BUN/Creatinine Ratio 37, Glucose Level 61L, Calcium Level 7.7L, Phosphorus Level 4.0, Magnesium Level 1.8 07/13/19 03:18: Blood Gas Puncture Site RIGHT RADIAL, Blood Gas Patient Temperature 36.3, Arterial Blood pH 7.39, Arterial Blood Partial Pressure CO2 49H, Arterial Blood Partial Pressure O2 48L, Arterial Blood HCO3 29H, Arterial Blood Total CO2 30.2, Arterial Blood Oxygen Saturation 80L, Arterial Blood Base Excess 3.8H, Clif Test POSITIVE, Blood Gas Ventilator Setting YES, Blood Gas Inspired Oxygen 30% 07/13/19 11:14: Glucometer 82 Microbiology 07/11/19 Gram Stain - Final, Complete 07/11/19 Sputum Culture - Final, Complete No growth 06/26/19 Blood Culture - Final, Complete No growth A/P: Assessment/Dx: Acute respiratory failure COPD Pneumonia Sinus bradycardia Plan: Acute on chronic respiratory failure, acute exacerbation of COPD, intubated for the second time during her hospital stay, tracheostomy/mechanical ventilation, managed by school boat driver Acute exacerbation of COPD, worsening dyspnea and hypoxemia, ventilator dependent Bradycardia, sinus bradycardia with long sinus pauses probably secondary to severe hypoxemia, no known previous cardiac history, heart rate is better at this time. Continue to monitor Acute renal failure, improved, renal functions are normal. Continue to monitor Hypertension, currently on sedation. Monitor blood pressure closely Thank you for your consultation. Please call me if you have any questions. Richard Spaulding MD, FACP, FACC, FSCAI, FHRS, CCDS Interventional Cardiology Cardiac Electrophysiology Vascular Medicine and Endovascular Interventions Heron SPAULDING MD Jul 13, 2019 14:00
--- NOTE | 2019-07-13 14:49 | Anesthesia-General Post-Op ---
General Patient Condition Mental Status/LOC: Same as Preop Cardiovascular: Satisfactory Nausea/Vomiting: Absent Respiratory: Satisfactory Pain: Controlled Complications: Absent Post Op Complications Complications None Follow Up Care/Instructions Patient Instructions None needed. Anesthesia/Patient Condition Patient Condition late entry from 07/12/19 1040: No apparent anesthesia problems. Patient on mechanical ventilator s/p tracheotomy yesterday and on IV sedation. She is stable at this point. Will be available for further consultation as needed. CEZAR LABOY CRNA Jul 13, 2019 14:49
[2019-07-13] MEDS ORDERED: fentaNYL INJECTION 1,250 MCG in NS (IVPB) 250 ML IV SCH (15:00)
[2019-07-13] MEDS: MELATONIN 3 MG TABLET PO SCH (21:10)
[2019-07-14] VITALS (17 sets, daily range): BP systolic 114–155; BP diastolic 61–87
[2019-07-14] MEDS: methylPREDNISolone 40 MG/ML (Solu-MEDROL) VIAL IV SCH ×2 (00:07→05:48)
[2019-07-14] MEDS: inSUlin ASPART (NovoLOG) 1 UNIT/0.01 ML (CHARGE PER UNIT) SC SCH ×3 (00:08→12:00)
[2019-07-14] MEDS: PROPOFOL DRIP (ICU) 100 ML IV SCH ×4 (00:21→12:58)
[2019-07-14] MEDS: RT-ALBUTEROL/IPRATROPIUM 3 ML (DUONEB) VIAL INH SCH ×3 (02:37→13:21)
[2019-07-14] MEDS: BUMETANIDE 2.5 MG/10 ML (BUMEX) VIAL IV SCH (04:00)
[2019-07-14 04:03] LABS: BASOPHILS % (AUTO) 0 % (0-10); EOSINOPHILS % (AUTO) 0 % (0-10); HEMATOCRIT 26 % (35-52); LYMPHOCYTES # (AUTO) 0.3 X 10^3 (1.0-4.0); LYMPHOCYTES % (AUTO) 4 % (12-44); MEAN CORPUSCULAR HEMOGLOBIN 29 PG (25-34); MEAN CORPUSCULAR HGB CONC 31 G/DL (32-36); MEAN CORPUSCULAR VOLUME 94 FL (80-99); MEAN PLATELET VOLUME 11.6 FL (7.4-10.4); MONOCYTES # (AUTO) 0.4 X 10^3 (0.0-1.0); MONOCYTES % (AUTO) 5 % (0-12); NEUTROPHILS # (AUTO) 6.3 X 10^3 (1.8-7.8); NEUTROPHILS % (AUTO) 91 % (42-75); PLATELET COUNT 97 10^3/uL (130-400); RED CELL DISTRIBUTION WIDTH 17.1 % (10.0-14.5)
[2019-07-14 04:29] LABS: CALCIUM 7.7 MG/DL (8.5-10.1); CREATININE SERUM 0.94 MG/DL (0.60-1.30); MAGNESIUM 1.7 MG/DL (1.6-2.4); PHOSPHORUS 3.7 MG/DL (2.3-4.7); POTASSIUM 4.1 MMOL/L (3.6-5.0)
[2019-07-14] MEDS: MAGNESIUM 1 GM/100 ML IVPB 100 ML IV SCH ×3 (05:00→05:48)
[2019-07-14] MEDS: POTASSIUM CL 10MEQ/50ML IVPB 50 ML IV SCH (05:00)
[2019-07-14] MEDS: KCL 20 MEQ TAB (K-DUR) PO SCH (05:00)
--- NOTE | 2019-07-14 05:21 | Pulmonary Progress Note ---
Subjective Time Seen by a Provider: 06:25 Subjective/Events-last exam Pt sedated on vent Sepsis Event Evaluation Height, Weight, BMI Height: 5'4.00" Weight: 246lbs. 2.0oz. 111.062349sx; 44.00 BMI Method:Stated Exam Exam Vital Signs Date Time Temp Pulse Resp B/P (MAP) Pulse Ox O2 Delivery O2 Flow Rate FiO2 07/14/19 05:00 64 13 155/67 (96) 97 Mechanical Ventilator 40.00 07/14/19 04:01 Mechanical Ventilator 40.00 07/14/19 04:00 96 Mechanical Ventilator 40 07/14/19 04:00 70 16 143/76 (98) 96 Mechanical Ventilator 40.00 07/14/19 03:48 Mechanical Ventilator 40.00 07/14/19 03:45 36.8 07/14/19 03:00 73 14 134/67 (89) 89 Mechanical Ventilator 40.00 07/14/19 02:38 66 18 97 30 07/14/19 02:00 73 17 141/76 (97) 96 Mechanical Ventilator 40.00 07/14/19 01:00 69 23 139/65 (89) 95 Mechanical Ventilator 40.00 07/14/19 00:45 72 07/14/19 00:21 Mechanical Ventilator 40.00 07/14/19 00:10 Mechanical Ventilator 40.00 07/14/19 00:00 96 Mechanical Ventilator 40 07/14/19 00:00 73 18 145/74 (97) 95 Mechanical Ventilator 30.00 07/13/19 23:15 36.2 Mechanical Ventilator 40.00 07/13/19 23:00 70 18 134/74 (94) 95 Mechanical Ventilator 40.00 07/13/19 22:00 79 14 144/71 (95) 96 Mechanical Ventilator 40.00 07/13/19 21:51 78 18 96 40 07/13/19 21:28 Mechanical Ventilator 40.00 07/13/19 21:00 70 18 157/71 (99) 96 Mechanical Ventilator 30.00 07/13/19 20:58 139/63 07/13/19 20:00 75 17 154/72 (99) 96 Mechanical Ventilator 30.00 07/13/19 20:00 36.2 07/13/19 19:15 92 Mechanical Ventilator 30 07/13/19 19:00 75 17 138/72 (94) 96 Mechanical Ventilator 30.00 07/13/19 18:46 73 18 93 40 07/13/19 18:44 78 07/13/19 18:00 72 18 136/67 (90) 91 Mechanical Ventilator 30.00 07/13/19 17:23 130/63 07/13/19 17:00 75 17 127/60 (82) 90 Mechanical Ventilator 30.00 07/13/19 16:00 90 15 126/74 (91) 90 Mechanical Ventilator 30.00 07/13/19 16:00 36.0 07/13/19 15:37 91 Mechanical Ventilator 30 07/13/19 15:00 89 13 131/66 (87) 98 Mechanical Ventilator 30.00 07/13/19 14:04 146/65 07/13/19 14:00 89 18 146/65 (92) 90 Mechanical Ventilator 30.00 07/13/19 13:49 82 18 91 30 07/13/19 13:00 88 18 164/98 (120) 92 Mechanical Ventilator 30.00 07/13/19 13:00 88 07/13/19 12:00 85 17 151/77 (101) 91 Mechanical Ventilator 30.00 07/13/19 12:00 36.0 07/13/19 11:10 92 Mechanical Ventilator 30 07/13/19 11:05 146/108 07/13/19 11:00 93 18 146/108 (121) 91 Mechanical Ventilator 30.00 07/13/19 10:00 86 18 129/95 (106) 91 Mechanical Ventilator 30.00 07/13/19 09:44 81 18 90 30 07/13/19 09:00 88 8 141/76 (97) 91 Mechanical Ventilator 30.00 07/13/19 08:04 36.2 07/13/19 08:00 91 Mechanical Ventilator 30 07/13/19 08:00 89 15 133/78 (96) 92 Mechanical Ventilator 30.00 07/13/19 07:38 85 18 91 30 07/13/19 07:27 36.3 Mechanical Ventilator 40.00 07/13/19 07:26 129/75 Mechanical Ventilator 30.00 07/13/19 07:00 84 18 129/75 (93) 92 Mechanical Ventilator 30.00 07/13/19 07:00 86 07/13/19 06:00 93 18 126/67 (86) 92 Mechanical Ventilator 30.00 I & O 07/14/19 07:00 Intake Total 1790 ml Output Total 2735 ml Balance -945 ml Height & Weight Height: 5'4.00" Weight: 246lbs. 2.0oz. 111.199258yl; 44.00 BMI Method:Stated General Appearance: No Apparent Distress, WD/WN, Obese HEENT: PERRL/EOMI Neck: Supple, Other (Tracheostomy in place) Respiratory: Lungs Clear, Normal Breath Sounds, No Respiratory Distress, Other (Mechanically ventilated) Cardiovascular: Regular Rate, Rhythm, No Murmur Capillary Refill: Less Than 3 Seconds Peripheral Pulses: 2+ Dorsalis Pedis (R), 2+ Left Dors-Pedis (L), 2+ Radial Pulses (R), 2+ Radial Pulses (L) Gastrointestinal: soft, no organomegaly Extremity: Normal Inspection, Pedal Edema Neurologic/Psychiatric: Other (And sedated) Skin: Normal Color, Warm/Dry Lymphatic: No Adenopathy Results Lab Laboratory Tests 07/13/19 03:17 07/14/19 03:55 Assessment/Plan Assessment/Plan Acute on chronic respiratory failure --s/p trachostomy 07/11 -Continue ventilator care -Anticipate transfer to [facility] tomorrow AM. -CXR appears worse -Probable transfer to [facility] today. -Will hold on weaning today since pt will probably be transferred PNA with pseudomonus -- intermediate to Levaquin -Continue Merrem x 14 days total -MRSA screen is positive Pulmonary edema - bumex COPDAE -Solumedrol 40 IV Q 6 -Duoneb Q 4 Acute renal failure - monitor Anemia -Monitor - Lovenox Hx of Diastolic CHF grade II - -Monitor -Continue bumex Anemia -Check occult stool -RN states pt is having vaginal bleeding, tracheostomy bleeding will change lovenox to daily Thrombocytopenia -Monitor HTN -Add hydralazine PRN ESTRELLITA PITT DO Jul 14, 2019 05:20
--- NOTE | 2019-07-14 05:33 | Pulmonary Progress Note ---
Subjective Time Seen by a Provider: 05:32 Sepsis Event Evaluation Height, Weight, BMI Height: 5'4.00" Weight: 246lbs. 2.0oz. 111.998838rt; 44.00 BMI Method:Stated Exam Exam Vital Signs Date Time Temp Pulse Resp B/P (MAP) Pulse Ox O2 Delivery O2 Flow Rate FiO2 07/14/19 05:00 64 13 155/67 (96) 97 Mechanical Ventilator 40.00 07/14/19 04:01 Mechanical Ventilator 40.00 07/14/19 04:00 96 Mechanical Ventilator 40 07/14/19 04:00 70 16 143/76 (98) 96 Mechanical Ventilator 40.00 07/14/19 03:48 Mechanical Ventilator 40.00 07/14/19 03:45 36.8 07/14/19 03:00 73 14 134/67 (89) 89 Mechanical Ventilator 40.00 07/14/19 02:38 66 18 97 30 07/14/19 02:00 73 17 141/76 (97) 96 Mechanical Ventilator 40.00 07/14/19 01:00 69 23 139/65 (89) 95 Mechanical Ventilator 40.00 07/14/19 00:45 72 07/14/19 00:21 Mechanical Ventilator 40.00 07/14/19 00:10 Mechanical Ventilator 40.00 07/14/19 00:00 96 Mechanical Ventilator 40 07/14/19 00:00 73 18 145/74 (97) 95 Mechanical Ventilator 30.00 07/13/19 23:15 36.2 Mechanical Ventilator 40.00 07/13/19 23:00 70 18 134/74 (94) 95 Mechanical Ventilator 40.00 07/13/19 22:00 79 14 144/71 (95) 96 Mechanical Ventilator 40.00 07/13/19 21:51 78 18 96 40 07/13/19 21:28 Mechanical Ventilator 40.00 07/13/19 21:00 70 18 157/71 (99) 96 Mechanical Ventilator 30.00 07/13/19 20:58 139/63 07/13/19 20:00 75 17 154/72 (99) 96 Mechanical Ventilator 30.00 07/13/19 20:00 36.2 07/13/19 19:15 92 Mechanical Ventilator 30 07/13/19 19:00 75 17 138/72 (94) 96 Mechanical Ventilator 30.00 07/13/19 18:46 73 18 93 40 07/13/19 18:44 78 07/13/19 18:00 72 18 136/67 (90) 91 Mechanical Ventilator 30.00 07/13/19 17:23 130/63 07/13/19 17:00 75 17 127/60 (82) 90 Mechanical Ventilator 30.00 07/13/19 16:00 90 15 126/74 (91) 90 Mechanical Ventilator 30.00 07/13/19 16:00 36.0 07/13/19 15:37 91 Mechanical Ventilator 30 07/13/19 15:00 89 13 131/66 (87) 98 Mechanical Ventilator 30.00 07/13/19 14:04 146/65 07/13/19 14:00 89 18 146/65 (92) 90 Mechanical Ventilator 30.00 07/13/19 13:49 82 18 91 30 07/13/19 13:00 88 18 164/98 (120) 92 Mechanical Ventilator 30.00 07/13/19 13:00 88 07/13/19 12:00 85 17 151/77 (101) 91 Mechanical Ventilator 30.00 07/13/19 12:00 36.0 07/13/19 11:10 92 Mechanical Ventilator 30 07/13/19 11:05 146/108 07/13/19 11:00 93 18 146/108 (121) 91 Mechanical Ventilator 30.00 07/13/19 10:00 86 18 129/95 (106) 91 Mechanical Ventilator 30.00 07/13/19 09:44 81 18 90 30 07/13/19 09:00 88 8 141/76 (97) 91 Mechanical Ventilator 30.00 07/13/19 08:04 36.2 07/13/19 08:00 91 Mechanical Ventilator 30 07/13/19 08:00 89 15 133/78 (96) 92 Mechanical Ventilator 30.00 07/13/19 07:38 85 18 91 30 07/13/19 07:27 36.3 Mechanical Ventilator 40.00 07/13/19 07:26 129/75 Mechanical Ventilator 30.00 07/13/19 07:00 84 18 129/75 (93) 92 Mechanical Ventilator 30.00 07/13/19 07:00 86 07/13/19 06:00 93 18 126/67 (86) 92 Mechanical Ventilator 30.00 I & O 07/14/19 07:00 Intake Total 1790 ml Output Total 2735 ml Balance -945 ml Height & Weight Height: 5'4.00" Weight: 246lbs. 2.0oz. 111.703488wv; 44.00 BMI Method:Stated General Appearance: No Apparent Distress, WD/WN, Obese HEENT: PERRL/EOMI Neck: Supple, Other (Tracheostomy in place) Respiratory: Lungs Clear, Normal Breath Sounds, No Respiratory Distress, Other (Mechanically ventilated) Cardiovascular: Regular Rate, Rhythm, No Murmur Capillary Refill: Less Than 3 Seconds Peripheral Pulses: 2+ Dorsalis Pedis (R), 2+ Left Dors-Pedis (L), 2+ Radial Pulses (R), 2+ Radial Pulses (L) Gastrointestinal: soft, no organomegaly Extremity: Normal Inspection, Pedal Edema Neurologic/Psychiatric: Other (And sedated) Skin: Normal Color, Warm/Dry Lymphatic: No Adenopathy Results Lab Laboratory Tests 07/13/19 03:17 07/14/19 03:55 Assessment/Plan Assessment/Plan Acute on chronic respiratory failure -- worsening s/p tracheostomy -Continue ventilator care -Hold weaning secondary to worsening CXR. -Anticipate transfer to [facility] tomorrow AM. -CXR appears worse -Continue Merrem PNA with pseudomonus -- intermediate to Levaquin -Continue Merrem x 14 days total -MRSA screen is positive Pulmonary edema - bumex 2 mg BID COPDAE -Solumedrol 40 IV Q 6 -Duoneb Q 4 Acute renal failure - monitor Anemia -Monitor - Lovenox Hx of Diastolic CHF grade II - -Monitor -Continue bumex Anemia -Check occult stool -RN states pt is having vaginal bleeding, tracheostomy bleeding will change lovenox to daily Thrombocytopenia -Monitor HTN -Add hydralazine PRN ESTRELLITA PITT DO Jul 14, 2019 05:33
[2019-07-14] MEDS: LEVOTHYROXINE 25 MCG (LEVOTHROID) TAB PO SCH (05:48)
[2019-07-14] MEDS: LEVOTHYROXINE 150 MCG (LEVOTHROID) TAB PO SCH (05:48)
[2019-07-14] MEDS: MEROPENEM 500 MG/SWFI 10 ML IV PUSH IV SCH ×2 (05:48)
[2019-07-14] MEDS: RT-BUDESONIDE NEBS 0.5 MG/2ML (PULMICORT) AMP INH SCH (07:21)
--- NOTE | 2019-07-14 08:03 | Progress Note ---
Subjective Time Seen by a Provider: 08:00 Subjective/Events-last exam Patient had a tracheostomy put in this weekend. Patient resting comfortably. Kidney function normal. Patient not communicating. Nurse state patient said yes and no during the evening. Objective Exam Vital Signs Date Time Temp Pulse Resp B/P (MAP) Pulse Ox O2 Delivery O2 Flow Rate FiO2 07/14/19 07:35 71 18 96 30 07/14/19 07:22 71 18 96 30 07/14/19 07:00 67 07/14/19 07:00 67 18 134/69 (90) 96 Mechanical Ventilator 40.00 07/14/19 06:00 70 14 131/87 (102) 97 Mechanical Ventilator 40.00 07/14/19 05:00 64 13 155/67 (96) 97 Mechanical Ventilator 40.00 07/14/19 04:01 Mechanical Ventilator 40.00 07/14/19 04:00 96 Mechanical Ventilator 40 07/14/19 04:00 70 16 143/76 (98) 96 Mechanical Ventilator 40.00 07/14/19 03:48 Mechanical Ventilator 40.00 07/14/19 03:45 36.8 07/14/19 03:00 73 14 134/67 (89) 89 Mechanical Ventilator 40.00 07/14/19 02:38 66 18 97 30 07/14/19 02:00 73 17 141/76 (97) 96 Mechanical Ventilator 40.00 07/14/19 01:00 69 23 139/65 (89) 95 Mechanical Ventilator 40.00 07/14/19 00:45 72 07/14/19 00:21 Mechanical Ventilator 40.00 07/14/19 00:10 Mechanical Ventilator 40.00 07/14/19 00:00 96 Mechanical Ventilator 40 07/14/19 00:00 73 18 145/74 (97) 95 Mechanical Ventilator 30.00 07/13/19 23:15 36.2 Mechanical Ventilator 40.00 07/13/19 23:00 70 18 134/74 (94) 95 Mechanical Ventilator 40.00 07/13/19 22:00 79 14 144/71 (95) 96 Mechanical Ventilator 40.00 07/13/19 21:51 78 18 96 40 07/13/19 21:28 Mechanical Ventilator 40.00 07/13/19 21:00 70 18 157/71 (99) 96 Mechanical Ventilator 30.00 07/13/19 20:58 139/63 1/19/20 20:00 75 17 154/72 (99) 96 Mechanical Ventilator 30.00 07/13/19 20:00 36.2 07/13/19 19:15 92 Mechanical Ventilator 30 07/13/19 19:00 75 17 138/72 (94) 96 Mechanical Ventilator 30.00 07/13/19 18:46 73 18 93 40 07/13/19 18:44 78 07/13/19 18:00 72 18 136/67 (90) 91 Mechanical Ventilator 30.00 07/13/19 17:23 130/63 07/13/19 17:00 75 17 127/60 (82) 90 Mechanical Ventilator 30.00 07/13/19 16:00 90 15 126/74 (91) 90 Mechanical Ventilator 30.00 07/13/19 16:00 36.0 07/13/19 15:37 91 Mechanical Ventilator 30 07/13/19 15:00 89 13 131/66 (87) 98 Mechanical Ventilator 30.00 07/13/19 14:04 146/65 07/13/19 14:00 89 18 146/65 (92) 90 Mechanical Ventilator 30.00 07/13/19 13:49 82 18 91 30 07/13/19 13:00 88 18 164/98 (120) 92 Mechanical Ventilator 30.00 07/13/19 13:00 88 07/13/19 12:00 85 17 151/77 (101) 91 Mechanical Ventilator 30.00 07/13/19 12:00 36.0 07/13/19 11:10 92 Mechanical Ventilator 30 07/13/19 11:05 146/108 07/13/19 11:00 93 18 146/108 (121) 91 Mechanical Ventilator 30.00 07/13/19 10:00 86 18 129/95 (106) 91 Mechanical Ventilator 30.00 07/13/19 09:44 81 18 90 30 07/13/19 09:00 88 8 141/76 (97) 91 Mechanical Ventilator 30.00 07/13/19 08:04 36.2 I & O 07/14/19 07:00 Intake Total 2030 ml Output Total 3285 ml Balance -1255 ml Capillary Refill : Less Than 3 SecondsLess Than 3 Seconds General Appearance: No Apparent Distress, WD/WN HEENT: Other (Trach) Neck: Normal Inspection Respiratory: No Accessory Muscle Use, No Respiratory Distress, Decreased Breath Sounds Cardiovascular: Regular Rate, Rhythm, No Murmur Gastrointestinal: non tender, soft Results Lab Laboratory Tests 07/14/19 03:55 Laboratory Tests 07/13/19 11:14: Glucometer 82 07/13/19 18:02: Glucometer 82 07/14/19 00:08: Glucometer 93 07/14/19 03:55: White Blood Count 7.0, Red Blood Count 2.74L, Hemoglobin 8.0L, Hematocrit 26L, Mean Corpuscular Volume 94, Mean Corpuscular Hemoglobin 29, Mean Corpuscular Hemoglobin Concent 31L, Red Cell Distribution Width 17.1H, Platelet Count 97L, Mean Platelet Volume 11.6H, Neutrophils (%) (Auto) 91H, Lymphocytes (%) (Auto) 4L, Monocytes (%) (Auto) 5, Eosinophils (%) (Auto) 0, Basophils (%) (Auto) 0, Neutrophils # (Auto) 6.3, Lymphocytes # (Auto) 0.3L, Monocytes # (Auto) 0.4, Eosinophils # (Auto) 0.0, Basophils # (Auto) 0.0, Sodium Level 143, Potassium Level 4.1, Chloride Level 107, Carbon Dioxide Level 23, Anion Gap 13, Blood Urea Nitrogen 37H, Creatinine 0.94, Estimat Glomerular Filtration Rate 59, BUN/Creatinine Ratio 39, Glucose Level 86, Calcium Level 7.7L, Phosphorus Level 3.7, Magnesium Level 1.7, Triglycerides Level 457H Microbiology 07/11/19 Gram Stain - Final, Complete 07/11/19 Sputum Culture - Final, Complete No growth 06/26/19 Blood Culture - Final, Complete No growth Assessment/Plan Assessment/Plan Assess & Plan/Chief Complaint Acute and chronic respiratory failure. COPD with acute exacerbation. Acute renal failure. Pneumonia or Thrombocytopenia. Hypertension. Hypoxia. . 07/01/2019. Electrolyte imbalance. Acute and chronic respiratory failure. Thrombocytopenia. COPD with acute exacerbation. Renal insufficiency. Pneumonia. Hypertension. Hypoxia.. . 07/02/2019. Maryam chronic respiratory failure. Thrombocytopenia better COPD with acute exacerbation. Renal insufficiency. Pneumonia. Hypertension. Hypoxia. . 07/03/2019. Acute and chronic respiratory failure. Thrombocytopenia likely 119,000 COPD with Acute Exacerbation. Renal Insufficiency. Pneumonia. Hypoxia. Hypertension Better. . 07/04/2019. Hypertension better. Thrombocytopenia better. Blood gases better. Renal insufficiency. Pneumonia. Hypoxia. Unit chronic respiratory failure. . 07/07/2019. Acute and chronic respiratory failure. COPD with acute exacerbation. Acute renal failure improved. Bradycardia. Pneumonia. . 07/08/2019. Patient on ventilator. Acute and chronic respiratory failure. COPD with acute exacerbation. Acute renal failure. Bradycardia. Pneumonia. . 07/09/2019 area Unit chronic respiratory failure.. COPD with acute exacerbation. Acute renal failure. Bradycardia. Pneumonia. Pseudomonas noted. . 07/10/2019. Acute and chronic respiratory failure. COPD with acute exacerbation. Acute renal failure improving. Bradycardia. Pneumonia. Pseudomonas noted. Attempting to take off ventilator today extubation. . 07/11/2019. Acute and chronic respiratory failure. Renal insufficiency. Pneumonia with Pseudomonas. Patient on BiPAP and is slow in doing things. . 07/14/2019. Maryam chronic respiratory failure. Renal insufficiency resolved. Pneumonia with Pseudomonas. Patient had tracheostomy this weekend last Clinical Quality Measures Admission Status Admission Dx COPD with acute exacerbation left lower lobe pneumonia renal insufficiency acute short of breath acute respiratory failure thrombocytopenia hypertension hyperlipidemia DVT/VTE Risk/Contraindication: Risk Factor Score Per Nursin RFS Level Per Nursing on Admit: 4+=Very High AURORA STACK DO Jul 14, 2019 08:03
--- NOTE | 2019-07-14 08:07 | Physical Therapy Progress Note ---
Therapy Progress Note Patient was trached and is on ventilator. PT will continue to monitor patient status and resume therapy when applicable. MIGDALIA OSORIO PT Jul 14, 2019 08:07
--- NOTE | 2019-07-14 08:14 | Diagnostic Imaging Report ---
INDICATION: Respiratory failure. Upright portable AP view of the chest is obtained with comparison made to study of one day earlier. FINDINGS: Mild cardiomegaly persists. There is mild pulmonary venous congestion. Airspace disease in the right lower lobe is mildly improved. There is blunting of both costophrenic sulci. IMPRESSION: Probable small pleural effusions with interval improvement in right basilar infiltrate. Dictated by: Dictated on workstation # [id number]
--- NOTE | 2019-07-14 08:44 | Cardiology Progress Note ---
Subjective Date Seen by Provider: Jul 14, 2019 Time Seen by Provider: 08:43 Subjective/Events-last exam Patient is sedated and intubated Events from the weekend reviewed Review of Systems General: Other (Unable to provide review of systems) Objective-Cardiology Exam Last Set of Vital Signs Vital Signs 07/14/19 07/14/19 07/14/19 03:45 07:35 08:00 Temp 36.8 Pulse 73 Resp 17 B/P (MAP) 134/72 (92) Pulse Ox 96 O2 Delivery Mechanical Ventilator O2 Flow Rate 40.00 FiO2 30 Capillary Refill : Less Than 3 SecondsLess Than 3 Seconds I&O Intake and Output 07/13/19 23:59 Intake Total 2730 ml Output Total 3850 ml Balance -1120 ml IV Total 2520 ml Other 210 ml Output Urine Total 3450 ml Gastric Drainage Total 400 ml General: Other (Sedated and intubated) HEENT: Atraumatic Neck: Supple, No JVD, No Thyromegaly Lungs: Normal Air Movement, Other (Bilateral rhonchi) Heart: Regular Rate, Normal S1, Normal S2, No Murmurs Abdomen: Normal Bowel Sounds, Soft, No Tenderness, No Hepatosplenomegaly, No Masses Extremities: No Clubbing, No Cyanosis, Normal Pulses, Other (Peripheral edema) Skin: Other (Chronic venous stasis changes) Neuro: Other (Sedated and intubated) Psych/Mental Status: Other (Sedated and intubated) Results Lab Laboratory Tests 07/14/19 03:55 A/P-Cardiology Admission Diagnosis Acute respiratory failure COPD Pneumonia Sinus bradycardia Assessment/Plan Acute on chronic respiratory failure, acute exacerbation of COPD, intubated for the second time during her hospital stay, had tracheostomy placed. Managed by Dr. Arrieta Acute exacerbation of COPD, worsening dyspnea and hypoxemia, ventilator dependent Bradycardia, sinus bradycardia with long sinus pauses probably secondary to severe hypoxemia, no known previous cardiac history, heart rate is better at t his time. Continue to monitor Acute renal failure, improved, renal functions are normal. Continue to monitor Hypertension, currently on sedation. Monitor blood pressure closely Clinical Quality Measures DVT/VTE Risk/Contraindication: Risk Factor Score Per Nursin RFS Level Per Nursing on Admit: 4+=Very High JANA TURPIN MD Jul 14, 2019 08:44
[2019-07-14] MEDS: HALOPERIDOL 5 MG/ML (HALDOL) AMP IV SCH (08:54)
[2019-07-14] MEDS: PANTOPRAZOLE 40 MG (PROTONIX) VIAL IV SCH (08:54)
[2019-07-14] MEDS: amLODIPine 5 MG (NORVASC) TAB PO SCH (08:54)
[2019-07-14] MEDS: meTOprolol TARTRATE 25 MG (LOPRESSOR) TABLET PO SCH (08:54)
--- NOTE | 2019-07-14 09:50 | NUR ---
DISCHARGE PLANNING: Patient is intended for discharge/transfer to [facility] today for vent wean. Confirmed this with Dr. Arrieta who is going to do the DOC to DOC when number is available. Updated clinical has been sent to [facility] and awaiting room number. This may turn to [facility] care but unknown at this time.
--- NOTE | 2019-07-14 10:34 | Occ Therapy Progress Note ---
Therapy Progress Note Patient had trach placed and is on ventilator. OT will continue to monitor patient status and resume therapy when applicable. IHSAN REED OT Jul 14, 2019 10:34
--- NOTE | 2019-07-14 12:04 | NUR ---
FINAL DISCHARGE PLAN: to trnsfer to [facility] today. Room number 413. Spoke with Taina from [facility] and her reports that they are all good to go. Updated out RN, Jennifer.
[2019-07-14] MEDS: LACTATED RINGERS 1,000 ML IV SCH (13:44)
--- NOTE | 2019-07-14 13:48 | NUR ---
Wasted 80mL of Fentanyl. Witnessed by SHAHRIAR Powell and this RN.
[2019-07-14] MEDS ORDERED: methylPREDNISolone 40 MG/ML (Solu-MEDROL) VIAL IV SCH (18:00)
--- NOTE | 2019-07-15 07:38 | Discharge Summary ---
Diagnosis/Chief Complaint Date of Admission Jun 27, 2019 at 09:06 Date of Discharge Jul 14, 2019 at 13:48 Discharge Time: 07:34 Discharge Diagnosis Chronic respiratory failure with hypoxemia and hypercapnia. Acute kidney failure. Anemia. Anxiety. BMI between 45 and 49.9. Chronic kidney disease. GERD. Diabetes. Hyperkalemia. Hyperlipidemia. Hypothyroid. Pneumonia. Morbid obesity. Thrombocytopenia. Atrial fibrillation history. Reason Hospital Visit Patient is a resident of a group home [facility]. I received a call from the nurse stating that the patient is acting differently and having acute mental status change. Patient sent out to the emergency room. Patient has pneumonia. Patient has acute respiratory failure. Patient has acute renal failure. Patient admitted to ICU when bed is available Discharge Summary Procedures On ventilator Consultations Cardiology. Pulmonology Discharge Physical Examination Allergies: Coded Allergies: ondansetron (Verified Allergy, Unknown, 05/14/19) risperidone (Verified Allergy, Unknown, 10/16/18) simvastatin (Unverified Adverse Reaction, Unknown, 04/20/14) Vitals & I&Os Vital Signs Date Time Temp Pulse Resp B/P (MAP) Pulse Ox O2 Delivery O2 Flow Rate FiO2 07/14/19 13:00 66 18 96 Mechanical Ventilator 40.00 07/14/19 12:00 40 07/14/19 11:56 36.3 Hospital Course Patient on then transferred to [facility] in [place] (last 24 hrs) Laboratory Tests 06/26/19 15:36: White Blood Count 7.3, Red Blood Count 3.01L, Hemoglobin 8.5L, Hematocrit 32L, Mean Corpuscular Volume 107H, Mean Corpuscular Hemoglobin 28, Mean Corpuscular Hemoglobin Concent 27L, Red Cell Distribution Width 15.9H, Platelet Count 46L, Mean Platelet Volume 11.4H, Neutrophils (%) (Auto) 85H, Lymphocytes (%) (Auto) 10L, Monocytes (%) (Auto) 3, Eosinophils (%) (Auto) 2, Basophils (%) (Auto) 0, Neutrophils # (Auto) 6.2, Lymphocytes # (Auto) 0.7L, Monocytes # (Auto) 0.2, Eosinophils # (Auto) 0.1, Basophils # (Auto) 0.0, Sodium Level 145, Potassium Level 5.6H, Chloride Level 107, Carbon Dioxide Level 28, Anion Gap 10, Blood Urea Nitrogen 39H, Creatinine 2.20H, Estimat Glomerular Filtration Rate 22, BUN/Creatinine Ratio 18, Glucose Level 150H, Calcium Level 8.8, Corrected Calcium 9.3, Total Bilirubin 0.3, Aspartate Amino Transf (AST/SGOT) 10, Alanine Aminotransferase (ALT/SGPT) 23, Alkaline Phosphatase 116, Total Protein 6.6, Albumin 3.4 06/26/19 17:12: Blood Gas Puncture Site RR, Blood Gas Patient Temperature 97.9, Arterial Blood pH 7.23*L, Arterial Blood Partial Pressure CO2 78*H, Arterial Blood Partial Pressure O2 115H, Arterial Blood HCO3 31H, Arterial Blood Total CO2 33.7H, Arterial Blood Oxygen Saturation 99, Arterial Blood Base Excess 4.1H, Clif Test YES-POS, Blood Gas Ventilator Setting NO, Blood Gas Inspired Oxygen 3L 06/26/19 18:55: Blood Gas Puncture Site left radial, Blood Gas Patient Temperature 36.6, Arterial Blood pH 7.28*L, Arterial Blood Partial Pressure CO2 67H, Arterial Blood Partial Pressure O2 58L, Arterial Blood HCO3 30H, Arterial Blood Total CO2 32.4H, Arterial Blood Oxygen Saturation 91L, Arterial Blood Base Excess 3.9H, Clif Test positive, Blood Gas Ventilator Setting YES, Blood Gas Inspired Oxygen 35% 06/26/19 19:32: Lactic Acid Level 0.66 06/26/19 21:45: Urine Color YELLOW, Urine Clarity CLEAR, Urine pH 6.0, Urine Specific [place] 1.015L, Urine Protein 1+H, Urine Glucose (UA) NEGATIVE, Urine Ketones NEGATIVE, Urine Nitrite NEGATIVE, Urine Bilirubin NEGATIVE, Urine Urobilinogen 0.2, Urine Leukocyte Esterase NEGATIVE, Urine RBC (Auto) NEGATIVE, Urine RBC NONE, Urine WBC 0-2, Urine Squamous Epithelial Cells 2-5, Urine Crystals NONE, Urine Bacteria TRACE, Urine Casts NONE, Urine Mucus NEGATIVE, Urine Culture Indicated NO 06/26/19 22:45: Blood Gas Puncture Site RT RAD, Blood Gas Patient Temperature 36.6, Arterial Blood pH 7.27*L, Arterial Blood Partial Pressure CO2 63H, Arterial Blood Partial Pressure O2 70L, Arterial Blood HCO3 28H, Arterial Blood Total CO2 30.1, Arterial Blood Oxygen Saturation 96, Arterial Blood Base Excess 1.8, Clif Test POS, Blood Gas Ventilator Setting YES, Blood Gas Inspired Oxygen 40% 06/27/19 02:56: Blood Gas Puncture Site RIGHT RADIAL, Blood Gas Patient Temperature 36.6, Arterial Blood pH 7.34*L, Arterial Blood Partial Pressure CO2 47H, Arterial Blood Partial Pressure O2 76L, Arterial Blood HCO3 25, Arterial Blood Total CO2 26.3, Arterial Blood Oxygen Saturation 96, Arterial Blood Base Excess -0.3, Clif Test POSITIVE, Blood Gas Ventilator Setting YES, Blood Gas Inspired Oxygen 30% 06/27/19 05:22: White Blood Count 6.4, Red Blood Count 2.77L, Hemoglobin 7.8L, Hematocrit 29L, Mean Corpuscular Volume 103H, Mean Corpuscular Hemoglobin 28, Mean Corpuscular Hemoglobin Concent 27L, Red Cell Distribution Width 16.1H, Platelet Count 54L, Mean Platelet Volume 11.7H, Neutrophils (%) (Auto) 96H, Lymphocytes (%) (Auto) 3L, Monocytes (%) (Auto) 1, Eosinophils (%) (Auto) 0, Basophils (%) (Auto) 0, Neutrophils # (Auto) 6.1, Lymphocytes # (Auto) 0.2L, Monocytes # (Auto) 0.1, Eosinophils # (Auto) 0.0, Basophils # (Auto) 0.0, Neutrophils % (Manual) 96, Lymphocytes % (Manual) 4, Hypochromasia SLIGHT, Macrocytosis MODERATE, Sodium Level 145, Potassium Level 6.6#*H, Chloride Level 109H, Carbon Dioxide Level 21, Anion Gap 15H, Blood Urea Nitrogen 42H, Creatinine 2.21H, Estimat Glomerular Filtration Rate 22, BUN/Creatinine Ratio 19, Glucose Level 196H, Calcium Level 8.6, Corrected Calcium 9.4, Total Bilirubin 0.2, Aspartate Amino Transf (AST/SGOT) 18, Alanine Aminotransferase (ALT/SGPT) 22, Alkaline Phosphatase 101, Total Protein 6.3L, Albumin 3.0L 06/27/19 09:06: Lab Scanned Report Referred Lab Report 06/27/19 12:15: White Blood Count 7.4, Red Blood Count 2.84L, Hemoglobin 8.0L, Hematocrit 29L, Mean Corpuscular Volume 101H, Mean Corpuscular Hemoglobin 28, Mean Corpuscular Hemoglobin Concent 28L, Red Cell Distribution Width 15.9H, Platelet Count 49L, Mean Platelet Volume 11.7H, Neutrophils (%) (Auto) 94H, Lymphocytes (%) (Auto) 3L, Monocytes (%) (Auto) 3, Eosinophils (%) (Auto) 0, Basophils (%) (Auto) 0, Neutrophils # (Auto) 6.9, Lymphocytes # (Auto) 0.2L, Monocytes # (Auto) 0.2, Eo sinophils # (Auto) 0.0, Basophils # (Auto) 0.0, Neutrophils % (Manual) 94, Lymphocytes % (Manual) 4, Monocytes % (Manual) 0, Eosinophils % (Manual) 0, Basophils % (Manual) 0, Band Neutrophils 2, Poikilocytosis SLIGHT, Anisocytosis SLIGHT, Elliptocytes SLIGHT, Blood Gas Puncture Site RT RADIAL, Blood Gas Patient Temperature 37.1, Arterial Blood pH 7.39, Arterial Blood Partial Pressure CO2 42, Arterial Blood Partial Pressure O2 160H, Arterial Blood HCO3 25, Arterial Blood Total CO2 26.3, Arterial Blood Oxygen Saturation 100, Arterial Blood Base Excess 0.7, Clif Test YES-POS, Blood Gas Ventilator Setting YES, Blood Gas Inspired Oxygen 40%, Sodium Level 145, Potassium Level 5.6H, Chloride Level 109H, Carbon Dioxide Level 21, Anion Gap 15H, Blood Urea Nitrogen 42H, Creatinine 2.10H, Estimat Glomerular Filtration Rate 23, BUN/Creatinine Ratio 20, Glucose Level 162H, Lactic Acid Level 0.80, Calcium Level 8.6, Corrected Calcium 9.3, Phosphorus Level 4.2, Total Bilirubin 0.2, Aspartate Amino Transf (AST/SGOT) 9, Alanine Aminotransferase (ALT/SGPT) 20, Alkaline Phosphatase 100, Total Protein 6.0L, Albumin 3.1L, Triglycerides Level 103 06/27/19 14:25: Blood Gas Puncture Site RT RADIAL, Blood Gas Patient Temperature 37.1, Arterial Blood pH 7.46H, Arterial Blood Partial Pressure CO2 38, Arterial Blood Partial Pressure O2 102H, Arterial Blood HCO3 26, Arterial Blood Total CO2 27.6, Arterial Blood Oxygen Saturation 99, Arterial Blood Base Excess 2.8H, Clif Test YES-POS, Blood Gas Ventilator Setting YES, Blood Gas Inspired Oxygen 30% 06/28/19 00:19: Glucometer 158H 06/28/19 03:13: White Blood Count 3.7L, Red Blood Count 2.28L, Hemoglobin 6.3#*L, Hematocrit 23L , Mean Corpuscular Volume 99, Mean Corpuscular Hemoglobin 28, Mean Corpuscular Hemoglobin Concent 28L, Red Cell Distribution Width 16.4H, Platelet Count 44L, Mean Platelet Volume 11.2H, Neutrophils (%) (Auto) 91H, Lymphocytes (%) (Auto) 6L, Monocytes (%) (Auto) 3, Eosinophils (%) (Auto) 0, Basophils (%) (Auto) 0, Neutrophils # (Auto) 3.4, Lymphocytes # (Auto) 0.2L, Monocytes # (Auto) 0.1, Eosinophils # (Auto) 0.0, Basophils # (Auto) 0.0 06/28/19 03:30: Blood Gas Puncture Site LEFT RADIAL, Blood Gas Patient Temperature 36.2, Arterial Blood pH 7.40, Arterial Blood Partial Pressure CO2 43, Arterial Blood Partial Pressure O2 87, Arterial Blood HCO3 26, Arterial Blood Total CO2 27.6, Arterial Blood Oxygen Saturation 97, Arterial Blood Base Excess 1.8, Clif Test POSITIVE, Blood Gas Ventilator Setting YES, Blood Gas Inspired Oxygen 30% 06/28/19 03:48: White Blood Count 4.3, Red Blood Count 2.56L, Hemoglobin 7.3L, Hematocrit 25L, Mean Corpuscular Volume 98, Mean Corpuscular Hemoglobin 29, Mean Corpuscular Hemoglobin Concent 29L, Red Cell Distribution Width 16.3H, Platelet Count 48L, Mean Platelet Volume 11.2H, Neutrophils (%) (Auto) 93H, Lymphocytes (%) (Auto) 4L, Monocytes (%) (Auto) 2, Eosinophils (%) (Auto) 0, Basophils (%) (Auto) 0, Neutrophils # (Auto) 4.0, Lymphocytes # (Auto) 0.2L, Monocytes # (Auto) 0.1, Eosinophils # (Auto) 0.0, Basophils # (Auto) 0.0, Sodium Level 146H, Potassium Level 4.6, Chloride Level 110H, Carbon Dioxide Level 22, Anion Gap 14, Blood Urea Nitrogen 39H, Creatinine 1.94H, Estimat Glomerular Filtration Rate 26, BUN/Creatinine Ratio 20, Glucose Level 186H, Calcium Level 8.2L, Phosphorus Level 3.6, Magnesium Level 2.2 06/28/19 08:40: Blood Gas Puncture Site LEFT RADIAL, Blood Gas Patient Temperature 36.0, Arterial Blood pH 7.32*L, Arterial Blood Partial Pressure CO2 53H, Arterial Blood Partial Pressure O2 68L, Arterial Blood HCO3 27, Arterial Blood Total CO2 28.6, Arterial Blood Oxygen Saturation 93L, Arterial Blood Base Excess 1.3, Clif Test NA, Blood Gas Ventilator Setting YES, Blood Gas Inspired Oxygen 30% 06/28/19 11:30: Stool Occult Blood Immunoassay NEGATIVE 06/28/19 12:42: Glucometer 184H 06/28/19 14:35: Heparin-Induced Platelet Ab (Harriet) Negative 06/28/19 16:30: Blood Gas Puncture Site LFT RAD, Blood Gas Patient Temperature 36.6, Arterial Blood pH 7.33*L, Arterial Blood Partial Pressure CO2 52H, Arterial Blood Partial Pressure O2 84, Arterial Blood HCO3 26, Arterial Blood Total CO2 28.0, Arterial Blood Oxygen Saturation 96, Arterial Blood Base Excess 1.0, Clif Test POS, Bl ood Gas Ventilator Setting YES, Blood Gas Inspired Oxygen 30% 06/28/19 17:29: Glucometer 168H 06/29/19 00:38: Glucometer 196H 06/29/19 03:35: White Blood Count 5.0, Red Blood Count 2.83L, Hemoglobin 8.0L, Hematocrit 28L, Mean Corpuscular Volume 98, Mean Corpuscular Hemoglobin 28, Mean Corpuscular Hemoglobin Concent 29L, Red Cell Distribution Width 16.1H, Platelet Count 53L, Mean Platelet Volume 11.5H, Neutrophils (%) (Auto) 95H, Lymphocytes (%) (Auto) 3L, Monocytes (%) (Auto) 2, Eosinophils (%) (Auto) 0, Basophils (%) (Auto) 0, Neutrophils # (Auto) 4.8, Lymphocytes # (Auto) 0.1L, Monocytes # (Auto) 0.1, Eosinophils # (Auto) 0.0, Basophils # (Auto) 0.0, Sodium Level 145, Potassium Level 4.6, Chloride Level 110H, Carbon Dioxide Level 23, Anion Gap 12, Blood Urea Nitrogen 38H, Creatinine 1.86H, Estimat Glomerular Filtration Rate 27, BUN/Creatinine Ratio 20, Glucose Level 211H, Calcium Level 8.2L, Phosphorus Level 4.8H, Magnesium Level 1.9, Triglycerides Level 134 06/29/19 03:50: Blood Gas Puncture Site LEFT RADIAL, Blood Gas Patient Temperature 36.0, Arterial Blood pH 7.35L, Arterial Blood Partial Pressure CO2 47H, Arterial Blood Partial Pressure O2 63L, Arterial Blood HCO3 26, Arterial Blood Total CO2 27.1, Arterial Blood Oxygen Saturation 93L, Arterial Blood Base Excess 0.5, Clif Test POSITIVE, Blood Gas Ventilator Setting YES, Blood Gas Inspired Oxygen 30% 06/29/19 07:24: Blood Gas Puncture Site LEFT RADIAL, Blood Gas Patient Temperature 36.1, Arterial Blood pH 7.37, Arterial Blood Partial Pressure CO2 45, Arterial Blood Partial Pressure O2 71L, Arterial Blood HCO3 26, Arterial Blood Total CO2 27.5, Arterial Blood Oxygen Saturation 94, Arterial Blood Base Excess 1.2, Clif Test YES-POS, Blood Gas Ventilator Setting YES, Blood Gas Inspired Oxygen 25% 06/29/19 11:21: Glucometer 153H 06/29/19 17:18: Glucometer 118H 06/29/19 22:59: Glucometer 130H 06/30/19 03:40: White Blood Count 5.2, Red Blood Count 2.72L, Hemoglobin 7.6L, Hematocrit 27L, Mean Corpuscular Volume 99, Mean Corpuscular Hemoglobin 28, Mean Corpuscular Hemoglobin Concent 28L, Red Cell Distribution Width 16.7H, Platelet Count 65L, Mean Platelet Volume 10.9H, Neutrophils (%) (Auto) 96H, Lymphocytes (%) (Auto) 3L, Monocytes (%) (Auto) 1, Eosinophils (%) (Auto) 0, Basophils (%) (Auto) 0, Neutrophils # (Auto) 5.0, Lymphocytes # (Auto) 0.1L, Monocytes # (Auto) 0.1, Eosinophils # (Auto) 0.0, Basophils # (Auto) 0.0, Blood Gas Puncture Site LEFT RADIAL, Blood Gas Patient Temperature 36.4, Arterial Blood pH 7.26*L, Arterial Blood Partial Pressure CO2 59H, Arterial Blood Partial Pressure O2 86, Arterial Blood HCO3 26, Arterial Blood Total CO2 27.8, Arterial Blood Oxygen Saturation 97, Arterial Blood Base Excess -0.3, Clif Test POSITIVE, Blood Gas Ventilator Setting NO, Blood Gas Inspired Oxygen 25%, Sodium Level 147H, Potassium Level 3.7, Chloride Level 112H, Carbon Dioxide Level 23, Anion Gap 12, Blood Urea Nitrogen 39H, Creatinine 1.67H, Estimat Glomerular Filtration Rate 30, BUN/Creatinine Ratio 23, Glucose Level 140H, Calcium Level 7.9L, Phosphorus Level 4.8H, Magnesium Level 2.0, B-Type Natriuretic Peptide 977.8H, Triglycerides Level 81, Thyroid Stimulating Hormone (TSH) 2.09 06/30/19 05:00: Lactic Acid Level 0.36L 06/30/19 06:55: Blood Gas Puncture Site LEFT WRIST, Blood Gas Patient Temperature 36.0, Arterial Blood pH 7.32*L, Arterial Blood Partial Pressure CO2 50H, Arterial Blood Partial Pressure O2 91, Arterial Blood HCO3 26, Arterial Blood Total CO2 27.1, Arterial Blood Oxygen Saturation 98, Arterial Blood Base Excess 0.0, Clif Test POSITIVE, Blood Gas Ventilator Setting NO, Blood Gas Inspired Oxygen 25% 06/30/19 11:28: Glucometer 234H 06/30/19 17:36: Glucometer 113H 06/30/19 22:55: Glucometer 221H 07/01/19 03:12: White Blood Count 4.6, Red Blood Count 2.84L, Hemoglobin 8.0L, Hematocrit 28L, Mean Corpuscular Volume 98, Mean Corpuscular Hemoglobin 28, Mean Corpuscular Hemoglobin Concent 29L, Red Cell Distribution Width 16.2H, Platelet Count 70L, Mean Platelet Volume 10.4, Neutrophils (%) (Auto) 93H, Lymphocytes (%) (Auto) 4L , Monocytes (%) (Auto) 3, Eosinophils (%) (Auto) 0, Basophils (%) (Auto) 0, Neutrophils # (Auto) 4.3, Lymphocytes # (Auto) 0.2L, Monocytes # (Auto) 0.1, Eosinophils # (Auto) 0.0, Basophils # (Auto) 0.0, Sodium Level 151H, Potassium Level 3.4L, Chloride Level 113H, Carbon Dioxide Level 24, Anion Gap 14, Blood Urea Nitrogen 43H, Creatinine 1.53H, Estimat Glomerular Filtration Rate 34, BUN/Creatinine Ratio 28, Glucose Level 125H, Calcium Level 8.1L, Phosphorus Level 4.0, Magnesium Level 2.0, Triglycerides Level 96 07/01/19 04:04: Blood Gas Puncture Site left radial, Blood Gas Patient Temperature 36.3, Arterial Blood pH 7.36L, Arterial Blood Partial Pressure CO2 50H, Arterial Blood Partial Pressure O2 58L, Arterial Blood HCO3 28H, Arterial Blood Total CO2 29.6, Arterial Blood Oxygen Saturation 90L, Arterial Blood Base Excess 2.8H, Clif Test POSITIVE, Blood Gas Ventilator Setting NO, Blood Gas Inspired Oxygen 25% 07/01/19 11:11: Glucometer 159H 07/01/19 17:30: Glucometer 130H 07/01/19 20:06: Glucometer 137H 07/01/19 23:07: Glucometer 205H 07/02/19 02:59: White Blood Count 7.7, Red Blood Count 2.99L, Hemoglobin 8.3L, Hematocrit 30L, Mean Corpuscular Volume 101H, Mean Corpuscular Hemoglobin 28, Mean Corpuscular Hemoglobin Concent 28L, Red Cell Distribution Width 16.9H, Platelet Count 118L, Mean Platelet Volume 10.2, Neutrophils (%) (Auto) 96H, Lymphocytes (%) (Auto) 3L , Monocytes (%) (Auto) 2, Eosinophils (%) (Auto) 0, Basophils (%) (Auto) 0, Neutrophils # (Auto) 7.4, Lymphocytes # (Auto) 0.2L, Monocytes # (Auto) 0.2, Eosinophils # (Auto) 0.0, Basophils # (Auto) 0.0, Sodium Level 146H, Potassium Level 5.3H, Chloride Level 112H, Carbon Dioxide Level 23, Anion Gap 11, Blood Urea Nitrogen 45H, Creatinine 1.42H, Estimat Glomerular Filtration Rate 37, BUN/Creatinine Ratio 32, Glucose Level 96, Calcium Level 7.9L, Phosphorus Level 4.2, Magnesium Level 2.0 07/02/19 03:08: Blood Gas Puncture Site LEFT RADIAL, Blood Gas Patient Temperature 36.2, Arterial Blood pH 7.28*L, Arterial Blood Partial Pressure CO2 61H, Arterial Blood Partial Pressure O2 73L, Arterial Blood HCO3 28H, Arterial Blood Total CO2 30.3, Arterial Blood Oxygen Saturation 96, Arterial Blood Base Excess 2.1, Clif Test POSITIVE, Blood Gas Ventilator Setting NO, Blood Gas Inspired Oxygen 30% BIPAP 07/02/19 11:47: Glucometer 101 07/02/19 15:12: Sodium Level 148H, Potassium Level 4.2, Chloride Level 112H, Carbon Dioxide Level 25, Anion Gap 11, Blood Urea Nitrogen 46H, Creatinine 1.45H, Estimat Glomerular Filtration Rate 36, BUN/Creatinine Ratio 32, Glucose Level 198H, Calcium Level 8.1L, Corrected Calcium 8.7, Total Bilirubin 0.3, Aspartate Amino Transf (AST/SGOT) 33, Alanine Aminotransferase (ALT/SGPT) 44, Alkaline Phosphatase 91, Total Protein 5.9L, Albumin 3.3 07/02/19 17:53: Glucometer 120H 07/02/19 19:56: Glucometer 159H 07/02/19 23:43: Glucometer 205H 07/03/19 02:59: White Blood Count 5.6, Red Blood Count 3.08L, Hemoglobin 8.6L, Hematocrit 32L, Mean Corpuscular Volume 102H, Mean Corpuscular Hemoglobin 28, Mean Corpuscular Hemoglobin Concent 27L, Red Cell Distribution Width 16.7H, Platelet Count 119L, Mean Platelet Volume 10.6H, Neutrophils (%) (Auto) 94H, Lymphocytes (%) (Auto) 3L, Monocytes (%) (Auto) 3, Eosinophils (%) (Auto) 0, Basophils (%) (Auto) 0, Neutrophils # (Auto) 5.3, Lymphocytes # (Auto) 0.2L, Monocytes # (Auto) 0.2, Eosinophils # (Auto) 0.0, Basophils # (Auto) 0.0, Blood Gas Puncture Site L RAD, Blood Gas Patient Temperature 37.0, Arterial Blood pH 7.18*L, Arterial Blood Partial Pressure CO2 83*H, Arterial Blood Partial Pressure O2 95H, Arterial Blood HCO3 30H, Arterial Blood Total CO2 32.2H, Arterial Blood Oxygen Saturation 98, Arterial Blood Base Excess 1.9, Clif Test YES-POS, Blood Gas Ventilator Setting NO, Blood Gas Inspired Oxygen 25%, Sodium Level 148H, Potassium Level 4.3, Chloride Level 111H, Carbon Dioxide Level 26, Anion Gap 11, Blood Urea Nitrogen 51H, Creatinine 1.55H, Estimat Glomerular Filtration Rate 33, BUN/Creatinine Ratio 33, Glucose Level 164H, Calcium Level 8.5, Phosphorus Level 4.9H, Magnesium Level 2.1 07/03/19 04:57: Blood Gas Puncture Site L RAD, Blood Gas Patient Temperature 37.0, Arterial Blood pH 7.26*L, Arterial Blood Partial Pressure CO2 68H, Arterial Blood Partial Pressure O2 56L, Arterial Blood HCO3 29H, Arterial Blood Total CO2 31.2H, Arterial Blood Oxygen Saturation 87L, Arterial Blood Base Excess 2.6H, Clif Te st YES-POS, Blood Gas Ventilator Setting NO, Blood Gas Inspired Oxygen 28% 07/03/19 09:45: Blood Gas Puncture Site LEFT RADIAL, Blood Gas Patient Temperature 36.7, Arter ial Blood pH 7.30*L, Arterial Blood Partial Pressure CO2 61H, Arterial Blood Partial Pressure O2 65L, Arterial Blood HCO3 29H, Arterial Blood Total CO2 31.3H , Arterial Blood Oxygen Saturation 94, Arterial Blood Base Excess 3.4H, Clif Test POSITIVE, Blood Gas Ventilator Setting NO, Blood Gas Inspired Oxygen 30% 07/03/19 11:42: Glucometer 170H 07/03/19 18:10: Glucometer 163H 07/03/19 21:18: Glucometer 192H 07/04/19 00:28: Glucometer 278H 07/04/19 03:25: White Blood Count 7.0, Red Blood Count 3.05L, Hemoglobin 8.4L, Hematocrit 31L, Mean Corpuscular Volume 100H, Mean Corpuscular Hemoglobin 28, Mean Corpuscular Hemoglobin Concent 28L, Red Cell Distribution Width 16.9H, Platelet Count 133, Mean Platelet Volume 10.7H, Neutrophils (%) (Auto) 95H, Lymphocytes (%) (Auto) 2L, Monocytes (%) (Auto) 3, Eosinophils (%) (Auto) 0, Basophils (%) (Auto) 0, Neutrophils # (Auto) 6.6, Lymphocytes # (Auto) 0.2L, Monocytes # (Auto) 0.2, Eosinophils # (Auto) 0.0, Basophils # (Auto) 0.0, Sodium Level 146H, Potassium Level 4.2, Chloride Level 110H, Carbon Dioxide Level 26, Anion Gap 10, Blood Urea Nitrogen 48H, Creatinine 1.34H, Estimat Glomerular Filtration Rate 39, BUN/Creatinine Ratio 36, Glucose Level 156H, Calcium Level 8.4L, Phosphorus Level 3.3, Magnesium Level 2.0 07/04/19 03:33: Blood Gas Puncture Site LEFT RADIAL, Blood Gas Patient Temperature 36.0, Arterial Blood pH 7.35L, Arterial Blood Partial Pressure CO2 56H, Arterial Blood Partial Pressure O2 71L, Arterial Blood HCO3 30H, Arterial Blood Total CO2 31.8H , Arterial Blood Oxygen Saturation 95, Arterial Blood Base Excess 4.4H, Clif Test YES-POS, Blood Gas Ventilator Setting NO, Blood Gas Inspired Oxygen 30% 07/04/19 11:35: Glucometer 171H 07/04/19 17:37: Glucometer 215H 07/04/19 23:08: Glucometer 300H 07/05/19 02:48: White Blood Count 6.5, Red Blood Count 3.06L, Hemoglobin 8.6L, Hematocrit 31L, Mean Corpuscular Volume 101H, Mean Corpuscular Hemoglobin 28, Mean Corpuscular Hemoglobin Concent 28L, Red Cell Distribution Width 16.5H, Platelet Count 145, Mean Platelet Volume 10.8H, Neutrophils (%) (Auto) 97H, Lymphocytes (%) (Auto) 2L, Monocytes (%) (Auto) 2, Eosinophils (%) (Auto) 0, Basophils (%) (Auto) 0, Neutrophils # (Auto) 6.3, Lymphocytes # (Auto) 0.1L, Monocytes # (Auto) 0.1, Eosinophils # (Auto) 0.0, Basophils # (Auto) 0.0, Blood Gas Puncture Site LEFT RADIAL, Blood Gas Patient Temperature 36.0, Arterial Blood pH 7.28*L, Arterial Blood Partial Pressure CO2 62H, Arterial Blood Partial Pressure O2 68L, Arterial Blood HCO3 28H, Arterial Blood Total CO2 30.3, Arterial Blood Oxygen Saturation 94, Arterial Blood Base Excess 2.0, Clif Test YES-POS, Blood Gas Ventilator Setting NO, Blood Gas Inspired Oxygen 28%, Sodium Level 136, Potassium Level 4.3, Chloride Level 102, Carbon Dioxide Level 24, Anion Gap 10, Blood Urea Nitrogen 44H, Creatinine 1.34H, Estimat Glomerular Filtration Rate 39, BUN/Creatinine Ratio 33, Glucose Level 391H, Calcium Level 7.9L, Phosphorus Level 3.1, Magnesium Level 1.9, B-Type Natriuretic Peptide 1103.1H 07/05/19 11:56: Glucometer 109 07/05/19 15:32: Glucometer 125H 07/05/19 17:40: Blood Gas Puncture Site LT RAD, Blood Gas Patient Temperature 36.2, Arterial Blood pH 7.29*L, Arterial Blood Partial Pressure CO2 63H, Arterial Blood Partial Pressure O2 53L, Arterial Blood HCO3 30H, Arterial Blood Total CO2 31.7H, Arterial Blood Oxygen Saturation 84L, Arterial Blood Base Excess 3.5H, Clif Test YES-POS, Blood Gas Ventilator Setting NO, Blood Gas Inspired Oxygen 15L,40% 07/05/19 20:45: Glucometer 169H 07/06/19 03:23: White Blood Count 9.4, Red Blood Count 3.32L, Hemoglobin 9.2L, Hematocrit 33L, Mean Corpuscular Volume 101H, Mean Corpuscular Hemoglobin 28, Mean Corpuscular Hemoglobin Concent 28L, Red Cell Distribution Width 16.6H, Platelet Count 200, Mean Platelet Volume 10.3, Neutrophils (%) (Auto) 96H, Lymphocytes (%) (Auto) 2L , Monocytes (%) (Auto) 2, Eosinophils (%) (Auto) 0, Basophils (%) (Auto) 0, Neutrophils # (Auto) 9.1H, Lymphocytes # (Auto) 0.2L, Monocytes # (Auto) 0.2, Eosinophils # (Auto) 0.0, Basophils # (Auto) 0.0, Neutrophils % (Manual) 93, Lymphocytes % (Manual) 2, Monocytes % (Manual) 1, Band Neutrophils 4, Polychromasia MODERATE, Anisocytosis MODERATE, Macrocytosis MODERATE, Sodium Level 142, Potassium Level 5.1H, Chloride Level 106, Carbon Dioxide Level 27, Anion Gap 9, Blood Urea Nitrogen 50H, Creatinine 1.35H, Estimat Glomerular Filtration Rate 39, BUN/Creatinine Ratio 37, Glucose Level 151H, Calcium Level 8.6, Phosphorus Level 3.8, Magnesium Level 2.0 07/06/19 03:25: Triglycerides Level 48 07/06/19 03:47: Blood Gas Puncture Site RIGHT RADIAL, Blood Gas Patient Temperature 36.8, Ar terial Blood pH 7.26*L, Arterial Blood Partial Pressure CO2 71*H, Arterial Blood Partial Pressure O2 57L, Arterial Blood HCO3 31H, Arterial Blood Total CO2 32.7H , Arterial Blood Oxygen Saturation 84L, Arterial Blood Base Excess 3.9H, Clif Test YES-POS, Blood Gas Ventilator Setting NO, Blood Gas Inspired Oxygen 35% 07/06/19 09:35: Blood Gas Puncture Site RIGHT RADIAL, Blood Gas Patient Temperature 33.8, Arterial Blood pH 7.42, Arterial Blood Partial Pressure CO2 44, Arterial Blood Partial Pressure O2 38*L, Arterial Blood HCO3 29H, Arterial Blood Total CO2 30.6, Arterial Blood Oxygen Saturation 84L, Arterial Blood Base Excess 4.1H, Clif Test POSITIVE, Blood Gas Ventilator Setting YES, Blood Gas Inspired Oxygen 21% 07/06/19 10:33: White Blood Count 7.2, Red Blood Count 3.08L, Hemoglobin 8.9L, Hematocrit 31L, Mean Corpuscular Volume 100H, Mean Corpuscular Hemoglobin 29, Mean Corpuscular Hemoglobin Concent 29L, Red Cell Distribution Width 16.3H, Platelet Count 150, Mean Platelet Volume 10.5H, Neutrophils (%) (Auto) 96H, Lymphocytes (%) (Auto) 2L, Monocytes (%) (Auto) 3, Eosinophils (%) (Auto) 0, Basophils (%) (Auto) 0, Neutrophils # (Auto) 6.9, Lymphocytes # (Auto) 0.1L, Monocytes # (Auto) 0.2, Eosinophils # (Auto) 0.0, Basophils # (Auto) 0.0, Sodium Level 138, Potassium Level 4.6, Chloride Level 104, Carbon Dioxide Level 25, Anion Gap 9, Blood Urea Nitrogen 49H, Creatinine 1.22, Estimat Glomerular Filtration Rate 44, BUN/Creatinine Ratio 40, Glucose Level 160H, Calcium Level 8.3L, Phosphorus Level 3.3, Magnesium Level 1.8 07/06/19 11:40: Glucometer 159H 07/06/19 17:35: Glucometer 264H 07/06/19 22:55: Glucometer 142H 07/07/19 03:25: Blood Gas Puncture Site RIGHT RADIAL, Blood Gas Patient Temperature 36.4, Natasha rial Blood pH 7.44H, Arterial Blood Partial Pressure CO2 45, Arterial Blood Par tial Pressure O2 48L, Arterial Blood HCO3 31H, Arterial Blood Total CO2 32.2H, Arterial Blood Oxygen Saturation 84L, Arterial Blood Base Excess 6.5H, Clif Test YES-POS, Blood Gas Ventilator Setting YES, Blood Gas Inspired Oxygen 23% 07/07/19 03:34: White Blood Count 6.1, Red Blood Count 2.90L, Hemoglobin 8.5L, Hematocrit 28L, Mean Corpuscular Volume 96, Mean Corpuscular Hemoglobin 29, Mean Corpuscular Hemoglobin Concent 31L, Red Cell Distribution Width 15.9H, Platelet Count 157, Mean Platelet Volume 10.6H, Neutrophils (%) (Auto) 95H, Lymphocytes (%) (Auto) 2L, Monocytes (%) (Auto) 3, Eosinophils (%) (Auto) 0, Basophils (%) (Auto) 0, Neutrophils # (Auto) 5.8, Lymphocytes # (Auto) 0.1L, Monocytes # (Auto) 0.2, Eosinophils # (Auto) 0.0, Basophils # (Auto) 0.0, Sodium Level 141, Potassium Level 4.5, Chloride Level 104, Carbon Dioxide Level 26, Anion Gap 11, Blood Urea Nitrogen 46H, Creatinine 1.14, Estimat Glomerular Filtration Rate 47, BUN/Creatinine Ratio 40, Glucose Level 128H, Calcium Level 8.1L, Phosphorus Level 2.8, Magnesium Level 1.7 07/07/19 11:36: Glucometer 187H 07/07/19 17:32: Glucometer 124H 07/07/19 22:51: Glucometer 127H 07/08/19 02:54: White Blood Count 8.3, Red Blood Count 2.66L, Hemoglobin 7.8L, Hematocrit 26L, Mean Corpuscular Volume 96, Mean Corpuscular Hemoglobin 29, Mean Corpuscular Hemoglobin Concent 31L, Red Cell Distribution Width 16.9H, Platelet Count 176, Mean Platelet Volume 11.1H, Neutrophils (%) (Auto) 95H, Lymphocytes (%) (Auto) 2L, Monocytes (%) (Auto) 3, Eosinophils (%) (Auto) 0, Basophils (%) (Auto) 0, Neutrophils # (Auto) 7.8, Lymphocytes # (Auto) 0.2L, Monocytes # (Auto) 0.3, Eosinophils # (Auto) 0.0, Basophils # (Auto) 0.0, Sodium Level 138, Potassium Level 4.5, Chloride Level 103, Carbon Dioxide Level 24, Anion Gap 11, Blood Urea Nitrogen 42H, Creatinine 1.06, Estimat Glomerular Filtration Rate 51, BUN/Creatinine Ratio 40, Glucose Level 99, Calcium Level 7.7L, Phosphorus Level 2.7, Magnesium Level 1.6, Triglycerides Level 1021H 07/08/19 03:20: Blood Gas Puncture Site LEFT RADIAL, Blood Gas Patient Temperature 36.6, Arterial Blood pH 7.46H, Arterial Blood Partial Pressure CO2 43, Arterial Blood Partial Pressure O2 45L, Arterial Blood HCO3 30H, Arterial Blood Total CO2 31.5H , Arterial Blood Oxygen Saturation 79L, Arterial Blood Base Excess 6.2H, Clif Test ART LINE, Blood Gas Ventilator Setting YES, Blood Gas Inspired Oxygen 28% 07/08/19 11:40: Glucometer 170H 07/08/19 17:39: Glucometer 123H 07/08/19 22:52: Glucometer 115H 07/09/19 03:03: Blood Gas Puncture Site RIGHT RADIAL, Blood Gas Patient Temperature 36.3, Arterial Blood pH 7.44H, Arterial Blood Partial Pressure CO2 42, Arterial Blood Partial Pressure O2 64L, Arterial Blood HCO3 28H, Arterial Blood Total CO2 29.4, Arterial Blood Oxygen Saturation 93L, Arterial Blood Base Excess 4.0H, Clif Test YES-POS, Blood Gas Ventilator Setting YES, Blood Gas Inspired Oxygen 28% 07/09/19 03:11: White Blood Count 6.6, Red Blood Count 2.83L, Hemoglobin 8.3L, Hematocrit 27L, Mean Corpuscular Volume 95, Mean Corpuscular Hemoglobin 29, Mean Corpuscular Hemoglobin Concent 31L, Red Cell Distribution Width 16.8H, Platelet Count 155, Mean Platelet Volume 11.2H, Neutrophils (%) (Auto) 93H, Lymphocytes (%) (Auto) 3L, Monocytes (%) (Auto) 4, Eosinophils (%) (Auto) 0, Basophils (%) (Auto) 0, Neutrophils # (Auto) 6.1, Lymphocytes # (Auto) 0.2L, Monocytes # (Auto) 0.2, Eosinophils # (Auto) 0.0, Basophils # (Auto) 0.0, Sodium Level 137, Potassium Level 4.2, Chloride Level 102, Carbon Dioxide Level 22, Anion Gap 13, Blood Urea Nitrogen 38H, Creatinine 1.08, Estimat Glomerular Filtration Rate 50, BUN/Creatinine Ratio 35, Glucose Level 92, Calcium Level 7.5L, Phosphorus Level 3.1, Magnesium Level 1.9, B-Type Natriuretic Peptide 282.4H 07/09/19 08:00: Blood Gas Puncture Site RIGHT RADIAL, Blood Gas Patient Temperature 37, Arterial Blood pH 7.37, Arterial Blood Partial Pressure CO2 50H, Arterial Blood Partial Pressure O2 63L, Arterial Blood HCO3 29H, Arterial Blood Total CO2 30.0, Arterial Blood Oxygen Saturation 91L, Arterial Blood Base Excess 3.6H, Clif Test POSITIVE, Blood Gas Ventilator Setting YES, Blood Gas Inspired Oxygen 28% 07/09/19 18:07: Glucometer 158H 07/09/19 23:12: Glucometer 84 07/10/19 03:24: White Blood Count 5.8, Red Blood Count 3.14L, Hemoglobin 8.9L, Hematocrit 30L, Mean Corpuscular Volume 95, Mean Corpuscular Hemoglobin 28, Mean Corpuscular Hemoglobin Concent 30L, Red Cell Distribution Width 16.7H, Platelet Count 143, Mean Platelet Volume 10.3, Neutrophils (%) (Auto) 92H, Lymphocytes (%) (Auto) 5L , Monocytes (%) (Auto) 3, Eosinophils (%) (Auto) 0, Basophils (%) (Auto) 0, Neutrophils # (Auto) 5.4, Lymphocytes # (Auto) 0.3L, Monocytes # (Auto) 0.2, Eosinophils # (Auto) 0.0, Basophils # (Auto) 0.0, Sodium Level 142, Potassium Level 4.1, Chloride Level 105, Carbon Dioxide Level 24, Anion Gap 13, Blood Urea Nitrogen 39H, Creatinine 1.06, Estimat Glomerular Filtration Rate 51, BUN/Creatinine Ratio 37, Glucose Level 90, Calcium Level 7.8L, Phosphorus Level 3.9, Magnesium Level 1.9, Triglycerides Level 438H 07/10/19 03:33: Blood Gas Puncture Site R RAD, Blood Gas Patient Temperature 36.2, Arterial Bl ood pH 7.37, Arterial Blood Partial Pressure CO2 49H, Arterial Blood Partial Pressure O2 63L, Arterial Blood HCO3 28H, Arterial Blood Total CO2 29.9, Arterial Blood Oxygen Saturation 91L, Arterial Blood Base Excess 3.3H, Clif Test YES-POS, Blood Gas Ventilator Setting YES, Blood Gas Inspired Oxygen 28% 07/10/19 11:19: Blood Gas Puncture Site L RADIAL, Blood Gas Patient Temperature 36.4, Arterial Blood pH 7.38, Arterial Blood Partial Pressure CO2 48H, Arterial Blood Partial Pressure O2 65L, Arterial Blood HCO3 28H, Arterial Blood Total CO2 29.6, Arterial Blood Oxygen Saturation 93L, Arterial Blood Base Excess 3.3H, Clif Test POSITIVE, Blood Gas Ventilator Setting YES, Blood Gas Inspired Oxygen 28% 07/10/19 12:15: Glucometer 68L 07/10/19 13:29: Glucometer 186H 07/10/19 15:52: Glucometer 78 07/10/19 16:43: Glucometer 109 07/10/19 17:53: Glucometer 157H 07/10/19 20:14: Glucometer 72 07/11/19 00:11: Glucometer 75 07/11/19 04:12: White Blood Count 14.1H, Red Blood Count 3.52L, Hemoglobin 9.9L, Hematocrit 35, Mean Corpuscular Volume 99, Mean Corpuscular Hemoglobin 28, Mean Corpuscular Hemoglobin Concent 28L, Red Cell Distribution Width 17.1H, Platelet Count 154, Mean Platelet Volume 11.0H, Neutrophils (%) (Auto) 95H, Lymphocytes (%) (Auto) 2L, Monocytes (%) (Auto) 3, Eosinophils (%) (Auto) 0, Basophils (%) (Auto) 0, Neutrophils # (Auto) 13.5H, Lymphocytes # (Auto) 0.2L, Monocytes # (Auto) 0.4, Eosinophils # (Auto) 0.0, Basophils # (Auto) 0.0, Neutrophils % (Manual) 96, Lymphocytes % (Manual) 1, Monocytes % (Manual) 2, Metamyelocytes % 1, Sodium Level 143, Potassium Level 4.7, Chloride Level 107, Carbon Dioxide Level 26, Anion Gap 10, Blood Urea Nitrogen 41H, Creatinine 1.19, Estimat Glomerular Filtration Rate 45, BUN/Creatinine Ratio 34, Glucose Level 67L, Calcium Level 8.0L, Phosphorus Level 5.6H, Magnesium Level 2.1 07/11/19 06:35: Glucometer 96 07/11/19 06:56: Blood Gas Puncture Site L BRACH, Blood Gas Patient Temperature 36.4, Arterial Blood pH 7.18*L, Arterial Blood Partial Pressure CO2 79*H, Arterial Blood Partial Pressure O2 56L, Arterial Blood HCO3 29H, Arterial Blood Total CO2 31.1H , Arterial Blood Oxygen Saturation 90L, Arterial Blood Base Excess 0.8, Clif Test YES-POS, Blood Gas Ventilator Setting NO, Blood Gas Inspired Oxygen 30% 07/11/19 11:46: Glucometer 54*L 07/11/19 14:46: Glucometer 97 07/11/19 17:37: Glucometer 92 07/11/19 20:59: Glucometer 138H 07/11/19 23:40: Glucometer 84 07/12/19 02:30: White Blood Count 6.8, Red Blood Count 3.22L, Hemoglobin 9.1L, Hematocrit 31L, Mean Corpuscular Volume 97, Mean Corpuscular Hemoglobin 28, Mean Corpuscular Hemoglobin Concent 29L, Red Cell Distribution Width 16.7H, Platelet Count 118L, Mean Platelet Volume 11.1H, Neutrophils (%) (Auto) 93H, Lymphocytes (%) (Auto) 3L, Monocytes (%) (Auto) 4, Eosinophils (%) (Auto) 0, Basophils (%) (Auto) 0, Neutrophils # (Auto) 6.3, Lymphocytes # (Auto) 0.2L, Monocytes # (Auto) 0.3, Eosinophils # (Auto) 0.0, Basophils # (Auto) 0.0, Sodium Level 142, Potassium Level 4.4, Chloride Level 106, Carbon Dioxide Level 22, Anion Gap 14, Blood Urea Nitrogen 39H, Creatinine 1.11, Estimat Glomerular Filtration Rate 49, BUN/Creatinine Ratio 35, Glucose Level 91, Calcium Level 7.8L, Phosphorus Level 4.1, Magnesium Level 1.8, Triglycerides Level 493#H 07/12/19 03:07: Blood Gas Puncture Site RIGHT RADIAL, Blood Gas Patient Temperature 36.1, Arterial Blood pH 7.35L, Arterial Blood Partial Pressure CO2 50H, Arterial Blood Partial Pressure O2 48L, Arterial Blood HCO3 27, Arterial Blood Total CO2 28.9, Arterial Blood Oxygen Saturation 84L, Arterial Blood Base Excess 2.0, Clif Test POSITIVE, Blood Gas Ventilator Setting YES, Blood Gas Inspired Oxygen 30% 07/12/19 11:35: Glucometer 80 07/12/19 18:00: Glucometer 71 07/12/19 23:50: Glucometer 93 07/13/19 03:17: White Blood Count 7.6, Red Blood Count 3.10L, Hemoglobin 8.7L, Hematocrit 29L, Mean Corpuscular Volume 95, Mean Corpuscular Hemoglobin 28, Mean Corpuscular Hemoglobin Concent 30L, Red Cell Distribution Width 17.2H, Platelet Count 123L, Mean Platelet Volume 11.5H, Neutrophils (%) (Auto) 92H, Lymphocytes (%) (Auto) 3L, Monocytes (%) (Auto) 5, Eosinophils (%) (Auto) 0, Basophils (%) (Auto) 0, Neutrophils # (Auto) 7.0, Lymphocytes # (Auto) 0.3L, Monocytes # (Auto) 0.4, Eosinophils # (Auto) 0.0, Basophils # (Auto) 0.0, Sodium Level 144, Potassium Level 4.3, Chloride Level 107, Carbon Dioxide Level 23, Anion Gap 14, Blood Urea Nitrogen 37H, Creatinine 0.99, Estimat Glomerular Filtration Rate 55, BUN/Creatinine Ratio 37, Glucose Level 61L, Calcium Level 7.7L, Phosphorus Level 4.0, Magnesium Level 1.8 07/13/19 03:18: Blood Gas Puncture Site RIGHT RADIAL, Blood Gas Patient Temperature 36.3, Arterial Blood pH 7.39, Arterial Blood Partial Pressure CO2 49H, Arterial Blood Partial Pressure O2 48L, Arterial Blood HCO3 29H, Arterial Blood Total CO2 30.2, Arterial Blood Oxygen Saturation 80L, Arterial Blood Base Excess 3.8H, Clif Test POSITIVE, Blood Gas Ventilator Setting YES, Blood Gas Inspired Oxygen 30% 07/13/19 11:14: Glucometer 82 07/13/19 18:02: Glucometer 82 07/14/19 00:08: Glucometer 93 07/14/19 03:55: White Blood Count 7.0, Red Blood Count 2.74L, Hemoglobin 8.0L, Hematocrit 26L, Mean Corpuscular Volume 94, Mean Corpuscular Hemoglobin 29, Mean Corpuscular Hemoglobin Concent 31L, Red Cell Distribution Width 17.1H, Platelet Count 97L, Mean Platelet Volume 11.6H, Neutrophils (%) (Auto) 91H, Lymphocytes (%) (Auto) 4L, Monocytes (%) (Auto) 5, Eosinophils (%) (Auto) 0, Basophils (%) (Auto) 0, Neutrophils # (Auto) 6.3, Lymphocytes # (Auto) 0.3L, Monocytes # (Auto) 0.4, Eosinophils # (Auto) 0.0, Basophils # (Auto) 0.0, Sodium Level 143, Potassium Level 4.1, Chloride Level 107, Carbon Dioxide Level 23, Anion Gap 13, Blood Urea Nitrogen 37H, Creatinine 0.94, Estimat Glomerular Filtration Rate 59, BUN/Creatinine Ratio 39, Glucose Level 86, Calcium Level 7.7L, Phosphorus Level 3.7, Magnesium Level 1.7, Triglycerides Level 457H 07/14/19 12:41: Glucometer 87 Microbiology 07/13/19 MRSA Screen - Final, Complete MRSA not isolated 06/26/19 Blood Culture - Final, Complete No growth Laboratory Tests 06/26/19 15:36 06/27/19 05:22 06/27/19 12:15 06/28/19 03:13 06/28/19 03:48 06/29/19 03:35 06/30/19 03:40 07/01/19 03:12 07/02/19 02:59 07/02/19 15:12 07/03/19 02:59 07/04/19 03:25 07/05/19 02:48 07/06/19 03:23 07/06/19 10:33 07/07/19 03:34 07/08/19 02:54 07/09/19 03:11 07/10/19 03:24 07/11/19 04:12 07/12/19 02:30 07/13/19 03:17 07/14/19 03:55 Pending Labs Microbiology Date/Time Source Procedure Growth Status 07/13/19 04:20 Nasal MRSA Screen - Final MRSA not isolated Complete 07/11/19 08:00 Sputum Endotracheal Gram Stain - Final Complete 07/11/19 08:00 Sputum Endotracheal Sputum Culture - Final No growth Complete 07/06/19 07:44 Sputum Transtracheal Aspirate Gram Stain - Final Complete 07/06/19 07:44 Sputum Culture - Final Pseudomonas aeruginosa Complete 06/28/19 00:35 Nasal MRSA Screen - Final Complete 06/26/19 19:32 Peripheral Lt Ac Blood Culture - Final No growth Complete 06/26/19 19:27 Peripheral Rt Ac Blood Culture - Final No growth Complete Laboratory Tests 06/26/19 15:36: White Blood Count 7.3, Red Blood Count 3.01, Hemoglobin 8.5, Hematocrit 32, Mean Corpuscular Volume 107, Mean Corpuscular Hemoglobin 28, Mean Corpuscular Hemoglobin Concent 27, Red Cell Distribution Width 15.9, Platelet Count 46, Mean Platelet Volume 11.4, Neutrophils (%) (Auto) 85, Lymphocytes (%) (Auto) 10, Monocytes (%) (Auto) 3, Eosinophils (%) (Auto) 2, Basophils (%) (Auto) 0, Neutrophils # (Auto) 6.2, Lymphocytes # (Auto) 0.7, Monocytes # (Auto) 0.2, Eosinophils # (Auto) 0.1, Basophils # (Auto) 0.0, Sodium Level 145, Potassium Level 5.6, Chloride Level 107, Carbon Dioxide Level 28, Anion Gap 10, Blood Urea Nitrogen 39, Creatinine 2.20, Estimat Glomerular Filtration Rate 22, BUN/Creatinine Ratio 18, Glucose Level 150, Calcium Level 8.8, Corrected Calcium 9.3, Total Bilirubin 0.3, Aspartate Amino Transf (AST/SGOT) 10, Alanine Aminotransferase (ALT/SGPT) 23, Alkaline Phosphatase 116, Total Protein 6.6, Albumin 3.4 06/26/19 17:12: Blood Gas Puncture Site RR, Blood Gas Patient Temperature 97.9, Arterial Blood pH 7.23, Arterial Blood Partial Pressure CO2 78, Arterial Blood Partial Pressure O2 115, Arterial Blood HCO3 31, Arterial Blood Total CO2 33.7, Arterial Blood Oxygen Saturation 99, Arterial Blood Base Excess 4.1, Clif Test YES-POS, Blood Gas Ventilator Setting NO, Blood Gas Inspired Oxygen 3L 06/26/19 18:55: Blood Gas Puncture Site left radial, Blood Gas Patient Temperature 36.6, Arterial Blood pH 7.28, Arterial Blood Partial Pressure CO2 67, Arterial Blood Partial Pressure O2 58, Arterial Blood HCO3 30, Arterial Blood Total CO2 32.4, Arterial Blood Oxygen Saturation 91, Arterial Blood Base Excess 3.9, Clif Test positive, Blood Gas Ventilator Setting YES, Blood Gas Inspired Oxygen 35% 06/26/19 19:32: Lactic Acid Level 0.66 06/26/19 21:45: Urine Color YELLOW, Urine Clarity CLEAR, Urine pH 6.0, Urine Specific [place] 1.015, Urine Protein 1+, Urine Glucose (UA) NEGATIVE, Urine Ketones NEGATIVE, Urine Nitrite NEGATIVE, Urine Bilirubin NEGATIVE, Urine Urobilinogen 0.2, Urine Leukocyte Esterase NEGATIVE, Urine RBC (Auto) NEGATIVE, Urine RBC NONE, Urine WBC 0-2, Urine Squamous Epithelial Cells 2-5, Urine Crystals NONE, Urine Bacteria TRACE, Urine Casts NONE, Urine Mucus NEGATIVE, Urine Culture Indicated NO 06/26/19 22:45: Blood Gas Puncture Site RT RAD, Blood Gas Patient Temperature 36.6, Arterial Blood pH 7.27, Arterial Blood Partial Pressure CO2 63, Arterial Blood Partial Pressure O2 70, Arterial Blood HCO3 28, Arterial Blood Total CO2 30.1, Arterial Blood Oxygen Saturation 96, Arterial Blood Base Excess 1.8, Clif Test POS, Blood Gas Ventilator Setting YES, Blood Gas Inspired Oxygen 40% 06/27/19 02:56: Blood Gas Puncture Site RIGHT RADIAL, Blood Gas Patient Temperature 36.6, Arterial Blood pH 7.34, Arterial Blood Partial Pressure CO2 47, Arterial Blood Partial Pressure O2 76, Arterial Blood HCO3 25, Arterial Blood Total CO2 26.3, Arterial Blood Oxygen Saturation 96, Arterial Blood Base Excess -0.3, Clif Test POSITIVE, Blood Gas Ventilator Setting YES, Blood Gas Inspired Oxygen 30% 06/27/19 05:22: White Blood Count 6.4, Red Blood Count 2.77, Hemoglobin 7.8, Hematocrit 29, Mean Corpuscular Volume 103, Mean Corpuscular Hemoglobin 28, Mean Corpuscular Hemoglobin Concent 27, Red Cell Distribution Width 16.1, Platelet Count 54, Mean Platelet Volume 11.7, Neutrophils (%) (Auto) 96, Lymphocytes (%) (Auto) 3, Monocytes (%) (Auto) 1, Eosinophils (%) (Auto) 0, Basophils (%) (Auto) 0, Neutrophils # (Auto) 6.1, Lymphocytes # (Auto) 0.2, Monocytes # (Auto) 0.1, Eosinophils # (Auto) 0.0, Basophils # (Auto) 0.0, Neutrophils % (Manual) 96, L ymphocytes % (Manual) 4, Hypochromasia SLIGHT, Macrocytosis MODERATE, Sodium Level 145, Potassium Level 6.6, Chloride Level 109, Carbon Dioxide Level 21, Anion Gap 15, Blood Urea Nitrogen 42, Creatinine 2.21, Estimat Glomerular Filtration Rate 22, BUN/Creatinine Ratio 19, Glucose Level 196, Calcium Level 8.6, Corrected Calcium 9.4, Total Bilirubin 0.2, Aspartate Amino Transf (AST/SGOT) 18, Alanine Aminotransferase (ALT/SGPT) 22, Alkaline Phosphatase 101, Total Protein 6.3, Albumin 3.0 06/27/19 09:06: Lab Scanned Report Referred Lab Report 06/27/19 12:15: White Blood Count 7.4, Red Blood Count 2.84, Hemoglobin 8.0, Hematocrit 29, Mean Corpuscular Volume 101, Mean Corpuscular Hemoglobin 28, Mean Corpuscular Hemoglobin Concent 28, Red Cell Distribution Width 15.9, Platelet Count 49, Mean Platelet Volume 11.7, Neutrophils (%) (Auto) 94, Lymphocytes (%) (Auto) 3, Monocytes (%) (Auto) 3, Eosinophils (%) (Auto) 0, Basophils (%) (Auto) 0, Neutrophils # (Auto) 6.9, Lymphocytes # (Auto) 0.2, Monocytes # (Auto) 0.2, Eosinophils # (Auto) 0.0, Basophils # (Auto) 0.0, Neutrophils % (Manual) 94, Lymphocytes % (Manual) 4, Monocytes % (Manual) 0, Eosinophils % (Manual) 0, Basophils % (Manual) 0, Band Neutrophils 2, Poikilocytosis SLIGHT, Anisocytosis SLIGHT, Elliptocytes SLIGHT, Blood Gas Puncture Site RT RADIAL, Blood Gas Patient Temperature 37.1, Arterial Blood pH 7.39, Arterial Blood Partial Pressure CO2 42, Arterial Blood Partial Pressure O2 160, Arterial Blood HCO3 25, Arterial Blood Total CO2 26.3, Arterial Blood Oxygen Saturation 100, Arterial B lood Base Excess 0.7, Clif Test YES-POS, Blood Gas Ventilator Setting YES, Blood Gas Inspired Oxygen 40%, Sodium Level 145, Potassium Level 5.6, Chloride Level 109, Carbon Dioxide Level 21, Anion Gap 15, Blood Urea Nitrogen 42, Creatinine 2.10, Estimat Glomerular Filtration Rate 23, BUN/Creatinine Ratio 20, Glucose Level 162, Lactic Acid Level 0.80, Calcium Level 8.6, Corrected Calcium 9.3, Phosphorus Level 4.2, Total Bilirubin 0.2, Aspartate Amino Transf (AST/SGOT) 9, Alanine Aminotransferase (ALT/SGPT) 20, Alkaline Phosphatase 100, Total Protein 6.0, Albumin 3.1, Triglycerides Level 103 06/27/19 14:25: Blood Gas Puncture Site RT RADIAL, Blood Gas Patient Temperature 37.1, Arterial Blood pH 7.46, Arterial Blood Partial Pressure CO2 38, Arterial Blood Partial Pressure O2 102, Arterial Blood HCO3 26, Arterial Blood Total CO2 27.6, Arterial Blood Oxygen Saturation 99, Arterial Blood Base Excess 2.8, Clif Test YES-POS, Blood Gas Ventilator Setting YES, Blood Gas Inspired Oxygen 30% 06/28/19 00:19: Glucometer 158 06/28/19 03:13: White Blood Count 3.7, Red Blood Count 2.28, Hemoglobin 6.3, Hematocrit 23, Mean Corpuscular Volume 99, Mean Corpuscular Hemoglobin 28, Mean Corpuscular Hemoglobin Concent 28, Red Cell Distribution Width 16.4, Platelet Count 44, Mean Platelet Volume 11.2, Neutrophils (%) (Auto) 91, Lymphocytes (%) (Auto) 6, Monocytes (%) (Auto) 3, Eosinophils (%) (Auto) 0, Basophils (%) (Auto) 0, Neutrophils # (Auto) 3.4, Lymphocytes # (Auto) 0.2, Monocytes # (Auto) 0.1, Eosinophils # (Auto) 0.0, Basophils # (Auto) 0.0 06/28/19 03:30: Blood Gas Puncture Site LEFT RADIAL, Blood Gas Patient Temperature 36.2, Arterial Blood pH 7.40, Arterial Blood Partial Pressure CO2 43, Arterial Blood Partial Pressure O2 87, Arterial Blood HCO3 26, Arterial Blood Total CO2 27.6, Arterial Blood Oxygen Saturation 97, Arterial Blood Base Excess 1.8, Clif Test POSITIVE, Blood Gas Ventilator Setting YES, Blood Gas Inspired Oxygen 30% 06/28/19 03:48: White Blood Count 4.3, Red Blood Count 2.56, Hemoglobin 7.3, Hematocrit 25, Mean Corpuscular Volume 98, Mean Corpuscular Hemoglobin 29, Mean Corpuscular Hemoglobin Concent 29, Red Cell Distribution Width 16.3, Platelet Count 48, Mean Platelet Volume 11.2, Neutrophils (%) (Auto) 93, Lymphocytes (%) (Auto) 4, Monocytes (%) (Auto) 2, Eosinophils (%) (Auto) 0, Basophils (%) (Auto) 0, Neutrophils # (Auto) 4.0, Lymphocytes # (Auto) 0.2, Monocytes # (Auto) 0.1, Eosinophils # (Auto) 0.0, Basophils # (Auto) 0.0, Sodium Level 146, Potassium Level 4.6, Chloride Level 110, Carbon Dioxide Level 22, Anion Gap 14, Blood Urea Nitrogen 39, Creatinine 1.94, Estimat Glomerular Filtration Rate 26, BUN/Creatinine Ratio 20, Glucose Level 186, Calcium Level 8.2, Phosphorus Level 3.6, Magnesium Level 2.2 06/28/19 08:40: Blood Gas Puncture Site LEFT RADIAL, Blood Gas Patient Temperature 36.0, Arterial Blood pH 7.32, Arterial Blood Partial Pressure CO2 53, Arterial Blood Partial Pressure O2 68, Arterial Blood HCO3 27, Arterial Blood Total CO2 28.6, Arterial Blood Oxygen Saturation 93, Arterial Blood Base Excess 1.3, Clif Test NA, Blood Gas Ventilator Setting YES, Blood Gas Inspired Oxygen 30% 06/28/19 11:30: Stool Occult Blood Immunoassay NEGATIVE 06/28/19 12:42: Glucometer 184 06/28/19 14:35: Heparin-Induced Platelet Ab (Harriet) Negative 06/28/19 16:30: Blood Gas Puncture Site LFT RAD, Blood Gas Patient Temperature 36.6, Arterial Blood pH 7.33, Arterial Blood Partial Pressure CO2 52, Arterial Blood Partial Pressure O2 84, Arterial Blood HCO3 26, Arterial Blood Total CO2 28.0, Arterial Blood Oxygen Saturation 96, Arterial Blood Base Excess 1.0, Clif Test POS, Blood Gas Ventilator Setting YES, Blood Gas Inspired Oxygen 30% 06/28/19 17:29: Glucometer 168 06/29/19 00:38: Glucometer 196 06/29/19 03:35: White Blood Count 5.0, Red Blood Count 2.83, Hemoglobin 8.0, Hematocrit 28, Mean Corpuscular Volume 98, Mean Corpuscular Hemoglobin 28, Mean Corpuscular Hemoglobin Concent 29, Red Cell Distribution Width 16.1, Platelet Count 53, Mean Platelet Volume 11.5, Neutrophils (%) (Auto) 95, Lymphocytes (%) (Auto) 3, Monocytes (%) (Auto) 2, Eosinophils (%) (Auto) 0, Basophils (%) (Auto) 0, Neutrophils # (Auto) 4.8, Lymphocytes # (Auto) 0.1, Monocytes # (Auto) 0.1, Eosinophils # (Auto) 0.0, Basophils # (Auto) 0.0, Sodium Level 145, Potassium Level 4.6, Chloride Level 110, Carbon Dioxide Level 23, Anion Gap 12, Blood Urea Nitrogen 38, Creatinine 1.86, Estimat Glomerular Filtration Rate 27, BUN/Creatinine Ratio 20, Glucose Level 211, Calcium Level 8.2, Phosphorus Level 4.8, Magnesium Level 1.9, Triglycerides Level 134 06/29/19 03:50: Blood Gas Puncture Site LEFT RADIAL, Blood Gas Patient Temperature 36.0, Arterial Blood pH 7.35, Arterial Blood Partial Pressure CO2 47, Arterial Blood Partial Pressure O2 63, Arterial Blood HCO3 26, Arterial Blood Total CO2 27.1, Arterial Blood Oxygen Saturation 93, Arterial Blood Base Excess 0.5, Clif Test POSITIVE, Blood Gas Ventilator Setting YES, Blood Gas Inspired Oxygen 30% 06/29/19 07:24: Blood Gas Puncture Site LEFT RADIAL, Blood Gas Patient Temperature 36.1, Arterial Blood pH 7.37, Arterial Blood Partial Pressure CO2 45, Arterial Blood Partial Pressure O2 71, Arterial Blood HCO3 26, Arterial Blood Total CO2 27.5, Arterial Blood Oxygen Saturation 94, Arterial Blood Base Excess 1.2, Clif Test YES-POS, Blood Gas Ventilator Setting YES, Blood Gas Inspired Oxygen 25% 06/29/19 11:21: Glucometer 153 06/29/19 17:18: Glucometer 118 06/29/19 22:59: Glucometer 130 06/30/19 03:40: White Blood Count 5.2, Red Blood Count 2.72, Hemoglobin 7.6, Hematocrit 27, Mean Corpuscular Volume 99, Mean Corpuscular Hemoglobin 28, Mean Corpuscular Hemoglobin Concent 28, Red Cell Distribution Width 16.7, Platelet Count 65, Mean Platelet Volume 10.9, Neutrophils (%) (Auto) 96, Lymphocytes (%) (Auto) 3, Monocytes (%) (Auto) 1, Eosinophils (%) (Auto) 0, Basophils (%) (Auto) 0, Neutrophils # (Auto) 5.0, Lymphocytes # (Auto) 0.1, Monocytes # (Auto) 0.1, Eosinophils # (Auto) 0.0, Basophils # (Auto) 0.0, Blood Gas Puncture Site LEFT RADIAL, Blood Gas Patient Temperature 36.4, Arterial Blood pH 7.26, Arterial Blood Partial Pressure CO2 59, Arterial Blood Partial Pressure O2 86, Arterial Blood HCO3 26, Arterial Blood Total CO2 27.8, Arterial Blood Oxygen Saturation 97, Arterial Blood Base Excess -0.3, Clif Test POSITIVE, Blood Gas Ventilator Setting NO, Blood Gas Inspired Oxygen 25%, Sodium Level 147, Potassium Level 3.7, Chloride Level 112, Carbon Dioxide Level 23, Anion Gap 12, Blood Urea Nitrogen 39, Creatinine 1.67, Estimat Glomerular Filtration Rate 30, BUN/Creatinine Ratio 23, Glucose Level 140, Calcium Level 7.9, Phosphorus Level 4.8, Magnesium Level 2.0, B-Type Natriuretic Peptide 977.8, Triglycerides Level 81, Thyroid Stimulating Hormone (TSH) 2.09 06/30/19 05:00: Lactic Acid Level 0.36 06/30/19 06:55: Blood Gas Puncture Site LEFT WRIST, Blood Gas Patient Temperature 36.0, Arterial Blood pH 7.32, Arterial Blood Partial Pressure CO2 50, Arterial Blood Partial Pressure O2 91, Arterial Blood HCO3 26, Arterial Blood Total CO2 27.1, Arterial Blood Oxygen Saturation 98, Arterial Blood Base Excess 0.0, Clif Test POSITIVE, Blood Gas Ventilator Setting NO, Blood Gas Inspired Oxygen 25% 06/30/19 11:28: Glucometer 234 06/30/19 17:36: Glucometer 113 06/30/19 22:55: Glucometer 221 07/01/19 03:12: White Blood Count 4.6, Red Blood Count 2.84, Hemoglobin 8.0, Hematocrit 28, Mean Corpuscular Volume 98, Mean Corpuscular Hemoglobin 28, Mean Corpuscular Hemoglobin Concent 29, Red Cell Distribution Width 16.2, Platelet Count 70, Mean Platelet Volume 10.4, Neutrophils (%) (Auto) 93, Lymphocytes (%) (Auto) 4, Monocytes (%) (Auto) 3, Eosinophils (%) (Auto) 0, Basophils (%) (Auto) 0, Neutrophils # (Auto) 4.3, Lymphocytes # (Auto) 0.2, Monocytes # (Auto) 0.1, Eosinophils # (Auto) 0.0, Basophils # (Auto) 0.0, Sodium Level 151, Potassium Level 3.4, Chloride Level 113, Carbon Dioxide Level 24, Anion Gap 14, Blood Urea Nitrogen 43, Creatinine 1.53, Estimat Glomerular Filtration Rate 34, BUN /Creatinine Ratio 28, Glucose Level 125, Calcium Level 8.1, Phosphorus Level 4.0, Magnesium Level 2.0, Triglycerides Level 96 07/01/19 04:04: Blood Gas Puncture Site left radial, Blood Gas Patient Temperature 36.3, Arterial Blood pH 7.36, Arterial Blood Partial Pressure CO2 50, Arterial Blood Partial Pressure O2 58, Arterial Blood HCO3 28, Arterial Blood Total CO2 29.6, Arterial Blood Oxygen Saturation 90, Arterial Blood Base Excess 2.8, Clif Test POSITIVE, Blood Gas Ventilator Setting NO, Blood Gas Inspired Oxygen 25% 07/01/19 11:11: Glucometer 159 07/01/19 17:30: Glucometer 130 07/01/19 20:06: Glucometer 137 07/01/19 23:07: Glucometer 205 07/02/19 02:59: White Blood Count 7.7, Red Blood Count 2.99, Hemoglobin 8.3, Hematocrit 30, Mean Corpuscular Volume 101, Mean Corpuscular Hemoglobin 28, Mean Corpuscular Hemoglobin Concent 28, Red Cell Distribution Width 16.9, Platelet Count 118, Mean Platelet Volume 10.2, Neutrophils (%) (Auto) 96, Lymphocytes (%) (Auto) 3, Monocytes (%) (Auto) 2, Eosinophils (%) (Auto) 0, Basophils (%) (Auto) 0, Neutrophils # (Auto) 7.4, Lymphocytes # (Auto) 0.2, Monocytes # (Auto) 0.2, Eosinophils # (Auto) 0.0, Basophils # (Auto) 0.0, Sodium Level 146, Potassium Level 5.3, Chloride Level 112, Carbon Dioxide Level 23, Anion Gap 11, Blood Urea Nitrogen 45, Creatinine 1.42, Estimat Glomerular Filtration Rate 37, BUN/Creatinine Ratio 32, Glucose Level 96, Calcium Level 7.9, Phosphorus Level 4.2, Magnesium Level 2.0 07/02/19 03:08: Blood Gas Puncture Site LEFT RADIAL, Blood Gas Patient Temperature 36.2, Arterial Blood pH 7.28, Arterial Blood Partial Pressure CO2 61, Arterial Blood Partial Pressure O2 73, Arterial Blood HCO3 28, Arterial Blood Total CO2 30.3, Arterial Blood Oxygen Saturation 96, Arterial Blood Base Excess 2.1, Clif Test POSITIVE, Blood Gas Ventilator Setting NO, Blood Gas Inspired Oxygen 30% BIPAP 07/02/19 11:47: Glucometer 101 07/02/19 15:12: Sodium Level 148, Potassium Level 4.2, Chloride Level 112, Carbon Dioxide Level 25, Anion Gap 11, Blood Urea Nitrogen 46, Creatinine 1.45, Estimat Glomerular Filtration Rate 36, BUN/Creatinine Ratio 32, Glucose Level 198, Calcium Level 8.1, Corrected Calcium 8.7, Total Bilirubin 0.3, Aspartate Amino Transf (AST/ SGOT) 33, Alanine Aminotransferase (ALT/SGPT) 44, Alkaline Phosphatase 91, Total Protein 5.9, Albumin 3.3 07/02/19 17:53: Glucometer 120 07/02/19 19:56: Glucometer 159 07/02/19 23:43: Glucometer 205 07/03/19 02:59: White Blood Count 5.6, Red Blood Count 3.08, Hemoglobin 8.6, Hematocrit 32, Mean Corpuscular Volume 102, Mean Corpuscular Hemoglobin 28, Mean Corpuscular Hemoglobin Concent 27, Red Cell Distribution Width 16.7, Platelet Count 119, Mean Platelet Volume 10.6, Neutrophils (%) (Auto) 94, Lymphocytes (%) (Auto) 3, Monocytes (%) (Auto) 3, Eosinophils (%) (Auto) 0, Basophils (%) (Auto) 0, Neutrophils # (Auto) 5.3, Lymphocytes # (Auto) 0.2, Monocytes # (Auto) 0.2, Eosinophils # (Auto) 0.0, Basophils # (Auto) 0.0, Blood Gas Puncture Site L RAD, Blood Gas Patient Temperature 37.0, Arterial Blood pH 7.18, Arterial Blood Partial Pressure CO2 83, Arterial Blood Partial Pressure O2 95, Arterial Blood HCO3 30, Arterial Blood Total CO2 32.2, Arterial Blood Oxygen Saturation 98, Arterial Blood Base Excess 1.9, Clif Test YES-POS, Blood Gas Ventilator Setting NO, Blood Gas Inspired Oxygen 25%, Sodium Level 148, Potassium Level 4.3, Chloride Level 111, Carbon Dioxide Level 26, Anion Gap 11, Blood Urea Nitrogen 5 1, Creatinine 1.55, Estimat Glomerular Filtration Rate 33, BUN/Creatinine Ratio 33, Glucose Level 164, Calcium Level 8.5, Phosphorus Level 4.9, Magnesium Level 2.1 07/03/19 04:57: Blood Gas Puncture Site L RAD, Blood Gas Patient Temperature 37.0, Arterial Blood pH 7.26, Arterial Blood Partial Pressure CO2 68, Arterial Blood Partial Pressure O2 56, Arterial Blood HCO3 29, Arterial Blood Total CO2 31.2, Arterial Blood Oxygen Saturation 87, Arterial Blood Base Excess 2.6, Clif Test YES-POS, Blood Gas Ventilator Setting NO, Blood Gas Inspired Oxygen 28% 07/03/19 09:45: Blood Gas Puncture Site LEFT RADIAL, Blood Gas Patient Temperature 36.7, Arterial Blood pH 7.30, Arterial Blood Partial Pressure CO2 61, Arterial Blood Partial Pressure O2 65, Arterial Blood HCO3 29, Arterial Blood Total CO2 31.3, Arterial Blood Oxygen Saturation 94, Arterial Blood Base Excess 3.4, Clif Test POSITIVE, Blood Gas Ventilator Setting NO, Blood Gas Inspired Oxygen 30% 07/03/19 11:42: Glucometer 170 07/03/19 18:10: Glucometer 163 07/03/19 21:18: Glucometer 192 07/04/19 00:28: Glucometer 278 07/04/19 03:25: White Blood Count 7.0, Red Blood Count 3.05, Hemoglobin 8.4, Hematocrit 31, Mean Corpuscular Volume 100, Mean Corpuscular Hemoglobin 28, Mean Corpuscular Hemoglobin Concent 28, Red Cell Distribution Width 16.9, Platelet Count 133, Mean Platelet Volume 10.7, Neutrophils (%) (Auto) 95, Lymphocytes (%) (Auto) 2, Monocytes (%) (Auto) 3, Eosinophils (%) (Auto) 0, Basophils (%) (Auto) 0, Neutrophils # (Auto) 6.6, Lymphocytes # (Auto) 0.2, Monocytes # (Auto) 0.2, Eosi nophils # (Auto) 0.0, Basophils # (Auto) 0.0, Sodium Level 146, Potassium Level 4.2, Chloride Level 110, Carbon Dioxide Level 26, Anion Gap 10, Blood Urea Nitrogen 48, Creatinine 1.34, Estimat Glomerular Filtration Rate 39, BUN/Creatinine Ratio 36, Glucose Level 156, Calcium Level 8.4, Phosphorus Level 3.3, Magnesium Level 2.0 07/04/19 03:33: Blood Gas Puncture Site LEFT RADIAL, Blood Gas Patient Temperature 36.0, Arterial Blood pH 7.35, Arterial Blood Partial Pressure CO2 56, Arterial Blood Partial Pressure O2 71, Arterial Blood HCO3 30, Arterial Blood Total CO2 31.8, Arterial Blood Oxygen Saturation 95, Arterial Blood Base Excess 4.4, Clif Test YES-POS, Blood Gas Ventilator Setting NO, Blood Gas Inspired Oxygen 30% 07/04/19 11:35: Glucometer 171 07/04/19 17:37: Glucometer 215 07/04/19 23:08: Glucometer 300 07/05/19 02:48: White Blood Count 6.5, Red Blood Count 3.06, Hemoglobin 8.6, Hematocrit 31, Mean Corpuscular Volume 101, Mean Corpuscular Hemoglobin 28, Mean Corpuscular Hemoglo bin Concent 28, Red Cell Distribution Width 16.5, Platelet Count 145, Mean Platelet Volume 10.8, Neutrophils (%) (Auto) 97, Lymphocytes (%) (Auto) 2, Monocytes (%) (Auto) 2, Eosinophils (%) (Auto) 0, Basophils (%) (Auto) 0, Neutrophils # (Auto) 6.3, Lymphocytes # (Auto) 0.1, Monocytes # (Auto) 0.1, Eosinophils # (Auto) 0.0, Basophils # (Auto) 0.0, Blood Gas Puncture Site LEFT RADIAL, Blood Gas Patient Temperature 36.0, Arterial Blood pH 7.28, Arterial Blood Partial Pressure CO2 62, Arterial Blood Partial Pressure O2 68, Arterial Blood HCO3 28, Arterial Blood Total CO2 30.3, Arterial Blood Oxygen Saturation 94, Arterial Blood Base Excess 2.0, Clif Test YES-POS, Blood Gas Ventilator Setting NO, Blood Gas Inspired Oxygen 28%, Sodium Level 136, Potassium Level 4.3, Chloride Level 102, Carbon Dioxide Level 24, Anion Gap 10, Blood Urea Nitrogen 44, Creatinine 1.34, Estimat Glomerular Filtration Rate 39, BUN/Creatinine Ratio 33, Glucose Level 391, Calcium Level 7.9, Phosphorus Level 3.1, Magnesium Level 1.9, B-Type Natriuretic Peptide 1103.1 07/05/19 11:56: Glucometer 109 07/05/19 15:32: Glucometer 125 07/05/19 17:40: Blood Gas Puncture Site LT RAD, Blood Gas Patient Temperature 36.2, Arterial Blood pH 7.29, Arterial Blood Partial Pressure CO2 63, Arterial Blood Partial Pressure O2 53, Arterial Blood HCO3 30, Arterial Blood Total CO2 31.7, Arterial Blood Oxygen Saturation 84, Arterial Blood Base Excess 3.5, Clif Test YES-POS, Blood Gas Ventilator Setting NO, Blood Gas Inspired Oxygen 15L,40% 07/05/19 20:45: Glucometer 169 07/06/19 03:23: White Blood Count 9.4, Red Blood Count 3.32, Hemoglobin 9.2, Hematocrit 33, Mean Corpuscular Volume 101, Mean Corpuscular Hemoglobin 28, Mean Corpuscular Hemoglobin Concent 28, Red Cell Distribution Width 16.6, Platelet Count 200, Mean Platelet Volume 10.3, Neutrophils (%) (Auto) 96, Lymphocytes (%) (Auto) 2, Monocytes (%) (Auto) 2, Eosinophils (%) (Auto) 0, Basophils (%) (Auto) 0, Neutrophils # (Auto) 9.1, Lymphocytes # (Auto) 0.2, Monocytes # (Auto) 0.2, Eosinophils # (Auto) 0.0, Basophils # (Auto) 0.0, Neutrophils % (Manual) 93, L ymphocytes % (Manual) 2, Monocytes % (Manual) 1, Band Neutrophils 4, Polychromasia MODERATE, Anisocytosis MODERATE, Macrocytosis MODERATE, Sodium Level 142, Potassium Level 5.1, Chloride Level 106, Carbon Dioxide Level 27, Anion Gap 9, Blood Urea Nitrogen 50, Creatinine 1.35, Estimat Glomerular Filt ration Rate 39, BUN/Creatinine Ratio 37, Glucose Level 151, Calcium Level 8.6, Phosphorus Level 3.8, Magnesium Level 2.0 07/06/19 03:25: Triglycerides Level 48 07/06/19 03:47: Blood Gas Puncture Site RIGHT RADIAL, Blood Gas Patient Temperature 36.8, Arterial Blood pH 7.26, Arterial Blood Partial Pressure CO2 71, Arterial Blood Partial Pressure O2 57, Arterial Blood HCO3 31, Arterial Blood Total CO2 32.7, Arterial Blood Oxygen Saturation 84, Arterial Blood Base Excess 3.9, Clif Test YES-POS, Blood Gas Ventilator Setting NO, Blood Gas Inspired Oxygen 35% 07/06/19 09:35: Blood Gas Puncture Site RIGHT RADIAL, Blood Gas Patient Temperature 33.8, Arterial Blood pH 7.42, Arterial Blood Partial Pressure CO2 44, Arterial Blood Partial Pressure O2 38, Arterial Blood HCO3 29, Arterial Blood Total CO2 30.6, Arterial Blood Oxygen Saturation 84, Arterial Blood Base Excess 4.1, Clif Test POSITIVE, Blood Gas Ventilator Setting YES, Blood Gas Inspired Oxygen 21% 07/06/19 10:33: White Blood Count 7.2, Red Blood Count 3.08, Hemoglobin 8.9, Hematocrit 31, Mean Corpuscular Volume 100, Mean Corpuscular Hemoglobin 29, Mean Corpuscular Hemoglobin Concent 29, Red Cell Distribution Width 16.3, Platelet Count 150, Mean Platelet Volume 10.5, Neutrophils (%) (Auto) 96, Lymphocytes (%) (Auto) 2, Monocytes (%) (Auto) 3, Eosinophils (%) (Auto) 0, Basophils (%) (Auto) 0, Neutrophils # (Auto) 6.9, Lymphocytes # (Auto) 0.1, Monocytes # (Auto) 0.2, Eosinophils # (Auto) 0.0, Basophils # (Auto) 0.0, Sodium Level 138, Potassium Level 4.6, Chloride Level 104, Carbon Dioxide Level 25, Anion Gap 9, Blood Urea Nitrogen 49, Creatinine 1.22, Estimat Glomerular Filtration Rate 44, BUN/Creatinine Ratio 40, Glucose Level 160, Calcium Level 8.3, Phosphorus Level 3.3, Magnesium Level 1.8 07/06/19 11:40: Glucometer 159 07/06/19 17:35: Glucometer 264 07/06/19 22:55: Glucometer 142 07/07/19 03:25: Blood Gas Puncture Site RIGHT RADIAL, Blood Gas Patient Temperature 36.4, Arterial Blood pH 7.44, Arterial Blood Partial Pressure CO2 45, Arterial Blood Partial Pressure O2 48, Arterial Blood HCO3 31, Arterial Blood Total CO2 32.2, Arterial Blood Oxygen Saturation 84, Arterial Blood Base Excess 6.5, Clif Test YES-POS, Blood Gas Ventilator Setting YES, Blood Gas Inspired Oxygen 23% 07/07/19 03:34: White Blood Count 6.1, Red Blood Count 2.90, Hemoglobin 8.5, Hematocrit 28, Mean Corpuscular Volume 96, Mean Corpuscular Hemoglobin 29, Mean Corpuscular Hemoglobin Concent 31, Red Cell Distribution Width 15.9, Platelet Count 157, Mean Platelet Volume 10.6, Neutrophils (%) (Auto) 95, Lymphocytes (%) (Auto) 2, Monocytes (%) (Auto) 3, Eosinophils (%) (Auto) 0, Basophils (%) (Auto) 0, Neutrophils # (Auto) 5.8, Lymphocytes # (Auto) 0.1, Monocytes # (Auto) 0.2, Eosinophils # (Auto) 0.0, Basophils # (Auto) 0.0, Sodium Level 141, Potassium Level 4.5, Chloride Level 104, Carbon Dioxide Level 26, Anion Gap 11, Blood Urea Nitrogen 46, Creatinine 1.14, Estimat Glomerular Filtration Rate 47, BUN/Creatinine Ratio 40, Glucose Level 128, Calcium Level 8.1, Phosphorus Level 2.8, Magnesium Level 1.7 07/07/19 11:36: Glucometer 187 07/07/19 17:32: Glucometer 124 07/07/19 22:51: Glucometer 127 07/08/19 02:54: White Blood Count 8.3, Red Blood Count 2.66, Hemoglobin 7.8, Hematocrit 26, Mean Corpuscular Volume 96, Mean Corpuscular Hemoglobin 29, Mean Corpuscular Hemoglobin Concent 31, Red Cell Distribution Width 16.9, Platelet Count 176, Mean Platelet Volume 11.1, Neutrophils (%) (Auto) 95, Lymphocytes (%) (Auto) 2, Monocytes (%) (Auto) 3, Eosinophils (%) (Auto) 0, Basophils (%) (Auto) 0, Neutrophils # (Auto) 7.8, Lymphocytes # (Auto) 0.2, Monocytes # (Auto) 0.3, Eosinophils # (Auto) 0.0, Basophils # (Auto) 0.0, Sodium Level 138, Potassium Level 4.5, Chloride Level 103, Carbon Dioxide Level 24, Anion Gap 11, Blood Urea Nitrogen 42, Creatinine 1.06, Estimat Glomerular Filtration Rate 51, BUN/Creatinine Ratio 40, Glucose Level 99, Calcium Level 7.7, Phosphorus Level 2.7, Magnesium Level 1.6, Triglycerides Level 1021 07/08/19 03:20: Blood Gas Puncture Site LEFT RADIAL, Blood Gas Patient Temperature 36.6, Arterial Blood pH 7.46, Arterial Blood Partial Pressure CO2 43, Arterial Blood Partial Pressure O2 45, Arterial Blood HCO3 30, Arterial Blood Total CO2 31.5, Arterial Blood Oxygen Saturation 79, Arterial Blood Base Excess 6.2, Clif Test ART LINE, Blood Gas Ventilator Setting YES, Blood Gas Inspired Oxygen 28% 07/08/19 11:40: Glucometer 170 07/08/19 17:39: Glucometer 123 07/08/19 22:52: Glucometer 115 07/09/19 03:03: Blood Gas Puncture Site RIGHT RADIAL, Blood Gas Patient Temperature 36.3, Arterial Blood pH 7.44, Arterial Blood Partial Pressure CO2 42, Arterial Blood Partial Pressure O2 64, Arterial Blood HCO3 28, Arterial Blood Total CO2 29.4, Arterial Blood Oxygen Saturation 93, Arterial Blood Base Excess 4.0, Clif Test YES-POS, Blood Gas Ventilator Setting YES, Blood Gas Inspired Oxygen 28% 07/09/19 03:11: White Blood Count 6.6, Red Blood Count 2.83, Hemoglobin 8.3, Hematocrit 27, Mean Corpuscular Volume 95, Mean Corpuscular Hemoglobin 29, Mean Corpuscular Hemoglobin Concent 31, Red Cell Distribution Width 16.8, Platelet Count 155, Mean Platelet Volume 11.2, Neutrophils (%) (Auto) 93, Lymphocytes (%) (Auto) 3, Monocytes (%) (Auto) 4, Eosinophils (%) (Auto) 0, Basophils (%) (Auto) 0, Neutrophils # (Auto) 6.1, Lymphocytes # (Auto) 0.2, Monocytes # (Auto) 0.2, Eosinophils # (Auto) 0.0, Basophils # (Auto) 0.0, Sodium Level 137, Potassium Level 4.2, Chloride Level 102, Carbon Dioxide Level 22, Anion Gap 13, Blood Urea Nitrogen 38, Creatinine 1.08, Estimat Glomerular Filtration Rate 50, BUN/Creatin ine Ratio 35, Glucose Level 92, Calcium Level 7.5, Phosphorus Level 3.1, Magnesium Level 1.9, B-Type Natriuretic Peptide 282.4 07/09/19 08:00: Blood Gas Puncture Site RIGHT RADIAL, Blood Gas Patient Temperature 37, Arterial Blood pH 7.37, Arterial Blood Partial Pressure CO2 50, Arterial Blood Partial Pressure O2 63, Arterial Blood HCO3 29, Arterial Blood Total CO2 30.0, Arterial Blood Oxygen Saturation 91, Arterial Blood Base Excess 3.6, Clif Test POSITIVE, Blood Gas Ventilator Setting YES, Blood Gas Inspired Oxygen 28% 07/09/19 18:07: Glucometer 158 07/09/19 23:12: Glucometer 84 07/10/19 03:24: White Blood Count 5.8, Red Blood Count 3.14, Hemoglobin 8.9, Hematocrit 30, Mean Corpuscular Volume 95, Mean Corpuscular Hemoglobin 28, Mean Corpuscular Hemoglobin Concent 30, Red Cell Distribution Width 16.7, Platelet Count 143, Mean Platelet Volume 10.3, Neutrophils (%) (Auto) 92, Lymphocytes (%) (Auto) 5, Monocytes (%) (Auto) 3, Eosinophils (%) (Auto) 0, Basophils (%) (Auto) 0, Neutrophils # (Auto) 5.4, Lymphocytes # (Auto) 0.3, Monocytes # (Auto) 0.2, Eosinophils # (Auto) 0.0, Basophils # (Auto) 0.0, Sodium Level 142, Potassium Level 4.1, Chloride Level 105, Carbon Dioxide Level 24, Anion Gap 13, Blood Urea Nitrogen 39, Creatinine 1.06, Estimat Glomerular Filtration Rate 51, BUN/Creatinine Ratio 37, Glucose Level 90, Calcium Level 7.8, Phosphorus Level 3.9, Magnesium Level 1.9, Triglycerides Level 438 07/10/19 03:33: Blood Gas Puncture Site R RAD, Blood Gas Patient Temperature 36.2, Arterial Blood pH 7.37, Arterial Blood Partial Pressure CO2 49, Arterial Blood Partial Pressure O2 63, Arterial Blood HCO3 28, Arterial Blood Total CO2 29.9, Arterial Blood Oxygen Saturation 91, Arterial Blood Base Excess 3.3, Clif Test YES-POS, Blood Gas Ventilator Setting YES, Blood Gas Inspired Oxygen 28% 07/10/19 11:19: Blood Gas Puncture Site L RADIAL, Blood Gas Patient Temperature 36.4, Arterial Blood pH 7.38, Arterial Blood Partial Pressure CO2 48, Arterial Blood Partial Pressure O2 65, Arterial Blood HCO3 28, Arterial Blood Total CO2 29.6, Arterial Blood Oxygen Saturation 93, Arterial Blood Base Excess 3.3, Clif Test POSITIVE, Blood Gas Ventilator Setting YES, Blood Gas Inspired Oxygen 28% 07/10/19 12:15: Glucometer 68 07/10/19 13:29: Glucometer 186 07/10/19 15:52: Glucometer 78 07/10/19 16:43: Glucometer 109 07/10/19 17:53: Glucometer 157 07/10/19 20:14: Glucometer 72 07/11/19 00:11: Glucometer 75 07/11/19 04:12: White Blood Count 14.1, Red Blood Count 3.52, Hemoglobin 9.9, Hematocrit 35, Mean Corpuscular Volume 99, Mean Corpuscular Hemoglobin 28, Mean Corpuscular Hemoglobin Concent 28, Red Cell Distribution Width 17.1, Platelet Count 154, Mean Platelet Volume 11.0, Neutrophils (%) (Auto) 95, Lymphocytes (%) (Auto) 2, Monocytes (%) (Auto) 3, Eosinophils (%) (Auto) 0, Basophils (%) (Auto) 0, Neutrophils # (Auto) 13.5, Lymphocytes # (Auto) 0.2, Monocytes # (Auto) 0.4, Eosinophils # (Auto) 0.0, Basophils # (Auto) 0.0, Neutrophils % (Manual) 96, Lymphocytes % (Manual) 1, Monocytes % (Manual) 2, Metamyelocytes % 1, Sodium Level 143, Potassium Level 4.7, Chloride Level 107, Carbon Dioxide Level 26, Anion Gap 10, Blood Urea Nitrogen 41, Creatinine 1.19, Estimat Glomerular Filtra tion Rate 45, BUN/Creatinine Ratio 34, Glucose Level 67, Calcium Level 8.0, Phosphorus Level 5.6, Magnesium Level 2.1 07/11/19 06:35: Glucometer 96 07/11/19 06:56: Blood Gas Puncture Site L BRACH, Blood Gas Patient Temperature 36.4, Arterial Blood pH 7.18, Arterial Blood Partial Pressure CO2 79, Arterial Blood Partial Pressure O2 56, Arterial Blood HCO3 29, Arterial Blood Total CO2 31.1, Arterial Blood Oxygen Saturation 90, Arterial Blood Base Excess 0.8, Clif Test YES-POS, Blood Gas Ventilator Setting NO, Blood Gas Inspired Oxygen 30% 07/11/19 11:46: Glucometer 54 07/11/19 14:46: Glucometer 97 07/11/19 17:37: Glucometer 92 07/11/19 20:59: Glucometer 138 07/11/19 23:40: Glucometer 84 07/12/19 02:30: White Blood Count 6.8, Red Blood Count 3.22, Hemoglobin 9.1, Hematocrit 31, Mean Corpuscular Volume 97, Mean Corpuscular Hemoglobin 28, Mean Corpuscular Hemoglobin Concent 29, Red Cell Distribution Width 16.7, Platelet Count 118, Mean Platelet Volume 11.1, Neutrophils (%) (Auto) 93, Lymphocytes (%) (Auto) 3, Monocytes (%) (Auto) 4, Eosinophils (%) (Auto) 0, Basophils (%) (Auto) 0, Neutrophils # (Auto) 6.3, Lymphocytes # (Auto) 0.2, Monocytes # (Auto) 0.3, Eosinophils # (Auto) 0.0, Basophils # (Auto) 0.0, Sodium Level 142, Potassium Level 4.4, Chloride Level 106, Carbon Dioxide Level 22, Anion Gap 14, Blood Urea Nitrogen 39, Creatinine 1.11, Estimat Glomerular Filtration Rate 49, BUN/Creatinine Ratio 35, Glucose Level 91, Calcium Level 7.8, Phosphorus Level 4.1, Magnesium Level 1.8, Triglycerides Level 493 07/12/19 03:07: Blood Gas Puncture Site RIGHT RADIAL, Blood Gas Patient Temperature 36.1, Arterial Blood pH 7.35, Arterial Blood Partial Pressure CO2 50, Arterial Blood Partial Pressure O2 48, Arterial Blood HCO3 27, Arterial Blood Total CO2 28.9, Arterial Blood Oxygen Saturation 84, Arterial Blood Base Excess 2.0, Clif Test POSITIVE, Blood Gas Ventilator Setting YES, Blood Gas Inspired Oxygen 30% 07/12/19 11:35: Glucometer 80 07/12/19 18:00: Glucometer 71 07/12/19 23:50: Glucometer 93 07/13/19 03:17: White Blood Count 7.6, Red Blood Count 3.10, Hemoglobin 8.7, Hematocrit 29, Mean Corpuscular Volume 95, Mean Corpuscular Hemoglobin 28, Mean Corpuscular Hemoglobin Concent 30, Red Cell Distribution Width 17.2, Platelet Count 123, Mean Platelet Volume 11.5, Neutrophils (%) (Auto) 92, Lymphocytes (%) (Auto) 3, Monocytes (%) (Auto) 5, Eosinophils (%) (Auto) 0, Basophils (%) (Auto) 0, Neutrophils # (Auto) 7.0, Lymphocytes # (Auto) 0.3, Monocytes # (Auto) 0.4, Eosinophils # (Auto) 0.0, Basophils # (Auto) 0.0, Sodium Level 144, Potassium Level 4.3, Chloride Level 107, Carbon Dioxide Level 23, Anion Gap 14, Blood Urea Nitrogen 37, Creatinine 0.99, Estimat Glomerular Filtration Rate 55, BUN/Creatinine Ratio 37, Glucose Level 61, Calcium Level 7.7, Phosphorus Level 4.0, Magnesium Level 1.8 07/13/19 03:18: Blood Gas Puncture Site RIGHT RADIAL, Blood Gas Patient Temperature 36.3, Arterial Blood pH 7.39, Arterial Blood Partial Pressure CO2 49, Arterial Blood Partial Pressure O2 48, Arterial Blood HCO3 29, Arterial Blood Total CO2 30.2, Arterial Blood Oxygen Saturation 80, Arterial Blood Base Excess 3.8, Clif Test POSITIVE, Blood Gas Ventilator Setting YES, Blood Gas Inspired Oxygen 30% 07/13/19 11:14: Glucometer 82 07/13/19 18:02: Glucometer 82 07/14/19 00:08: Glucometer 93 07/14/19 03:55: White Blood Count 7.0, Red Blood Count 2.74, Hemoglobin 8.0, Hematocrit 26, Mean Corpuscular Volume 94, Mean Corpuscular Hemoglobin 29, Mean Corpuscular Hemoglobin Concent 31, Red Cell Distribution Width 17.1, Platelet Count 97, Mean Platelet Volume 11.6, Neutrophils (%) (Auto) 91, Lymphocytes (%) (Auto) 4, Monocytes (%) (Auto) 5, Eosinophils (%) (Auto) 0, Basophils (%) (Auto) 0, Neutrophils # (Auto) 6.3, Lymphocytes # (Auto) 0.3, Monocytes # (Auto) 0.4, Eosinophils # (Auto) 0.0, Basophils # (Auto) 0.0, Sodium Level 143, Potassium Level 4.1, Chloride Level 107, Carbon Dioxide Level 23, Anion Gap 13, Blood Urea Nitrogen 37, Creatinine 0.94, Estimat Glomerular Filtration Rate 59, BUN/Creatinine Ratio 39, Glucose Level 86, Calcium Level 7.7, Phosphorus Level 3.7, Magnesium Level 1.7, Triglycerides Level 457 07/14/19 12:41: Glucometer 87 Discharge Home Medications: Active Scripts Active Reported Garlic 1,000 Mg Capsule 1,000 Mg PO DAILY Nyamyc (Nystatin) 15 Gm Powder TOP UD PRN Vitamin D3 (Cholecalciferol (Vitamin D3)) 2,000 Unit Capsule 2,000 Unit PO DAILY Torsemide 20 Mg Tablet 40 Mg PO DAILY TAKES 2 TABLETS (40MG) TABLETS Pantoprazole Sodium 40 Mg Tablet.dr 40 Mg PO DAILY Glucosamine (Glucosamine Sulfate 2Kcl) 1,000 Mg Tablet 1,000 Mg PO BID Iprat-Albut 0.5-3(2.5) mg/3 ml (Ipratropium/Albuterol Sulfate) 3 Ml Ampul.neb 3 Ml NEB QID Tylenol (Acetaminophen) 325 Mg Tablet 650 Mg PO Q4H PRN TAKES 2 (325MG) TABLETS Mucinex (Guaifenesin) 600 Mg Tab.er.12h 600 Mg PO Q12H PRN Fish Oil 1,000 mg Capsule ([place] 3 Polyunsat Fatty Acids) 1,000 Mg Cap 1,000 Mg PO DAILY Acetazolamide 250 Mg Tablet 250 Mg PO DAILY Natural Balance Tears Eye Drop (Dextran 70/Hypromellose) 15 Ml Drops 2 Drops OU Q4H PRN Chlorophyll 20 mg Tablet (Chlorophyllin/Nicollet) 1 Each Tablet 1 Tab PO BID Levothyroxine Sodium 175 Mcg Tablet 175 Mcg PO DAILY Mylanta Suspension (Al Hydrox/Mg Hydrox/Simethicone) 30 Ml Oral.susp 30 Ml PO UD PRN Daily Vitamin Formula (Multivitamin) 1 Each Tablet 1 Tab PO DAILY Allopurinol 100 Mg Tablet 100 Mg PO DAILY Hydrocodone/Acetaminophen 5/325mg Tablet (Acetaminophen/Hydrocodone Bitart) 1 Each Tablet 1 Tab PO BID Symbicort 160-4.5 Mcg Inhaler (Budesonide/Formoterol Fumarate) 10.2 Gm Hfa.aer.ad 2 Puff INH BID Metoprolol Tartrate 25 Mg Tablet 25 Mg PO BID HOLD FOR SBP<100, DBP <50, OR PULSE <60 Instructions to patient/family Please see electronic discharge instructions given to patient. Clinical Quality Measures DVT/VTE Risk/Contraindication: Risk Factor Score Per Nursin RFS Level Per Nursing on Admit: 4+=Very High AURORA STACK DO Jul 15, 2019 07:37
== END 2019-07-14 13:48 | DRG 4 ==
LOC: EDUNIT# 15:30 → ER 15:31 → 4TH 17:45 → UNDOADMIN 17:45 → 4TH 23:59 → ICU 06-27 09:06
PROVIDERS: ADMIT Family Medicine; ATTEND Family Medicine
PROC: 0BH18EZ Insertion of Endotracheal Airway into Trachea, Via Natural or Artificial Opening Endoscopic (ICD-10-PCS; 2019-06-26)
PROC: 5A1945Z Respiratory Ventilation, 24-96 Consecutive Hours (ICD-10-PCS; principal; 2019-06-27)
PROC: 5A1955Z Respiratory Ventilation, Greater than 96 Consecutive Hours (ICD-10-PCS; 2019-07-06)
PROC: 0B110F4 Bypass Trachea to Cutaneous with Tracheostomy Device, Open Approach (ICD-10-PCS; 2019-07-11)
DX: J96.21 Acute and chronic respiratory failure with hypoxia (principal); J96.22 Acute and chronic respiratory failure with hypercapnia; J44.1 Chronic obstructive pulmonary disease with (acute) exacerbation; J15.1 Pneumonia due to Pseudomonas; I13.0 Hypertensive heart and chronic kidney disease with heart failure and stage 1 through stage 4 chronic kidney disease, or unspecified chronic kidney disease; N17.9 Acute kidney failure, unspecified; N18.9 Chronic kidney disease, unspecified; I50.30 Unspecified diastolic (congestive) heart failure; E87.0 Hyperosmolality and hypernatremia; Z68.42 Body mass index [BMI] 45.0-49.9, adult; E66.01 Morbid (severe) obesity due to excess calories; I48.91 Unspecified atrial fibrillation; R41.0 Disorientation, unspecified; G57.93 Unspecified mononeuropathy of bilateral lower limbs; R73.9 Hyperglycemia, unspecified; T38.0X5A Adverse effect of glucocorticoids and synthetic analogues, initial encounter; E87.5 Hyperkalemia; I87.8 Other specified disorders of veins; F41.9 Anxiety disorder, unspecified; F32.9 Major depressive disorder, single episode, unspecified; K21.9 Gastro-esophageal reflux disease without esophagitis; E03.9 Hypothyroidism, unspecified; D64.9 Anemia, unspecified; D69.6 Thrombocytopenia, unspecified; E78.5 Hyperlipidemia, unspecified; Z87.891 Personal history of nicotine dependence; Z90.710 Acquired absence of both cervix and uterus; Z90.722 Acquired absence of ovaries, bilateral; I87.2 Venous insufficiency (chronic) (peripheral); R00.1 Bradycardia, unspecified
CPT/HCPCS: 31500; 36415; 36569; 36600; 51702; 71045; 71046; 76937; 80048; 80053; 81000; 82274; 82805; 82962; 83605; 83735; 83880; 84100; 84443; 84478; 85007; 85025; 85027; 86022; 87040; 87070; 87077; 87081; 87186; 87205; 93005; 93306; 93970; 94002; 94003; 94640; 94660; 94799; 96361; 96365; 96375